=== PATIENT | female | born 1945 | race Caucasian/White ===

== ENCOUNTER → 2017-10-22 11:44 | Outpatient (CLI) | payer MEDICARE, OTHER, SELFPAY ==
[2017-10-22 14:45] LABS: AST(SGOT) 17 U/L (15-37); Alanine Aminotransfer ALT/SGPT 30 U/L (13-56); Alkaline Phosphatase 68 U/L (45-117); Cholesterol 176 mg/dL (200); Globulin 3.3 g/dL (2.2-4.2); High Density Lipoprotein 84 mg/dL; Protein, Total 7.3 g/dL (6.4-8.2); Triglycerides 61 mg/dL; Very Low Density Lipoprotein 12 mg/dL (5-40)
== END ==
PROVIDERS: Family Provider Family Medicine; PCP Family Medicine; Visit Provider Internal Medicine Cardiovascular Disease
DX: E78.5 Hyperlipidemia, unspecified (principal); Z79.899 Other long term (current) drug therapy
CPT/HCPCS: 36415; 80061; 80076

== ENCOUNTER → 2017-11-26 20:16 | Outpatient (CLI) | payer MEDICARE, OTHER, SELFPAY | PROVIDERS: Family Provider Family Medicine; PCP Family Medicine; Visit Provider Family Medicine | DX: R30.0 Dysuria (principal) | CPT/HCPCS: 87086; 87088 ==

== ENCOUNTER → 2018-02-21 12:55 | Outpatient (CLI) | payer MEDICARE, OTHER, SELFPAY | PROVIDERS: Family Provider Family Medicine; PCP Family Medicine; Visit Provider Family Medicine | DX: R39.9 Unspecified symptoms and signs involving the genitourinary system (principal) | CPT/HCPCS: 87077; 87086; 87088; 87186 ==

== ENCOUNTER → 2018-03-08 11:17 | Outpatient (CLI) | payer MEDICARE, OTHER, SELFPAY ==
--- NOTE | 2018-03-08 11:30 | RAD_ITS ---
STUDY: X-RAY - RIGHT ANKLE REASON FOR EXAM: Female, 72 years old. Sprain. Pain and swelling TECHNIQUE: 3 view(s) of the ankle. COMPARISON: None. FINDINGS: Normal visualized distal tibia and fibula. Normal medial and lateral malleoli. Normal tibiotalar articulation and ankle mortise. Normal visualized talus and calcaneus. The visualized subtalar, talonavicular, calcaneocuboid and tarsal articulations are normal. There is no demonstrated fracture. The soft tissue structures are unremarkable. RAD/Ankle min 3 Views IMPRESSION: Normal x-ray examination of the ankle. Electronically Signed: Tobi Velázquez MD at 11:05 EDT , Service support ,
== END ==
PROVIDERS: Family Provider Family Medicine; PCP Family Medicine; Visit Provider Family Medicine
DX: S93.409A Sprain of unspecified ligament of unspecified ankle, initial encounter (principal)
CPT/HCPCS: 73610

== ENCOUNTER → 2018-03-28 11:05 | Outpatient (CLI) | payer MEDICARE, OTHER, SELFPAY | LOC: MFPLAB 11:06 → LABSPEC 11:06 | PROVIDERS: Family Provider Family Medicine; PCP Family Medicine; Visit Provider Family Medicine | DX: R39.9 Unspecified symptoms and signs involving the genitourinary system (principal) | CPT/HCPCS: 87086; 87088 ==

== ENCOUNTER → 2018-04-12 10:39 | Outpatient (CLI) | payer MEDICARE, OTHER, SELFPAY ==
--- NOTE | 2018-04-12 10:44 | BI_ITS ---
MAMMOGRAPHY - BILATERAL SCREENING REASON FOR EXAM: Female, 72 years old. Routine annual screening examination. PERTINENT HISTORY: Aunt with breast cancer. TECHNIQUE: Digital bilateral breast renetta (3D mammographic acquisition) in the CC and MLO projections. 2-D mediolateral oblique (MLO) and craniocaudad (CC) views of both breasts were obtained. CAD: Full Field Digital Mammography with Computer Added Detection was performed. COMPARISON: Comparison is made with prior study dated January 31, 2017 and August 17, 2015. FINDINGS: Breast Composition: The breasts are heterogeneously dense, which may obscure small masses. There are no dominant masses or suspicious calcifications. No other significant abnormalities are identified. There has been no significant change since the prior study. BI/SCREENING MAMM (CAD), BILAT IMPRESSION: Stable bilateral screening mammogram. Yearly follow-up mammogram recommended. (A) ASSESSMENT CATEGORY: BIRADS Category 2: Benign. A letter regarding these results will be sent to the patient by the facility within 30 days. Approximately 10% of breast cancers are not detected by mammography. A normal mammogram should not delay biopsy of a clinically suspicious abnormality. [id number] Electronically Signed: Klever Law MD at 13:11 EDT Tel [phone], Service support ,
== END ==
PROVIDERS: Family Provider Family Medicine; PCP Family Medicine; Visit Provider Family Medicine
DX: Z00.00 Encounter for general adult medical examination without abnormal findings (principal); Z12.31 Encounter for screening mammogram for malignant neoplasm of breast
CPT/HCPCS: 77063; 77067

== ENCOUNTER → 2018-05-16 11:10 | Outpatient (CLI) | payer MEDICARE, OTHER, SELFPAY ==
[2018-05-16 12:44] LABS: AST(SGOT) 19 U/L (15-37); Alanine Aminotransfer ALT/SGPT 25 U/L (13-56); Albumin, Serum 3.8 g/dL (3.2-5.0); Alkaline Phosphatase 70 U/L (45-117); Bilirubin, Direct 0.15 mg/dL (0.00-0.30); Cholesterol 157 mg/dL (200); Globulin 3.3 g/dL (2.2-4.2); High Density Lipoprotein 74 mg/dL; Protein, Total 7.1 g/dL (6.4-8.2); Triglycerides 85 mg/dL; Very Low Density Lipoprotein 17 mg/dL (5-40)
== END ==
PROVIDERS: Family Provider Family Medicine; PCP Family Medicine; Visit Provider Internal Medicine Cardiovascular Disease
DX: E78.5 Hyperlipidemia, unspecified (principal); Z79.899 Other long term (current) drug therapy
CPT/HCPCS: 36415; 80061; 80076

== ENCOUNTER → 2018-07-10 11:25 | Outpatient (CLI) | payer MEDICARE, OTHER, SELFPAY ==
[2018-07-10 13:03] LABS: Anion Gap 7 (5-15); BUN 11 mg/dL (7-18); BUN/Creat Ratio 14.1 RATIO (10-20); Calcium,Total 8.7 mg/dL (8.5-10.1); Chloride 93 mmol/L (98-107); Creatinine, Serum 0.78 mg/dL (0.55-1.02); EST Glomerular Filtration Rate 77 mL/min (>60); Est Glom Filt Rate - Afr Amer 94 mL/min (>60); Glucose 93 mg/dL (74-106); Potassium 4.3 mmol/L (3.5-5.1); Sodium Level 128 mmol/L (136-145)
== END ==
PROVIDERS: Family Provider Family Medicine; PCP Family Medicine; Visit Provider Family Medicine
DX: I10 Essential (primary) hypertension (principal)
CPT/HCPCS: 36415; 80048

== ENCOUNTER → 2018-09-03 11:14 | Outpatient (CLI) | payer MEDICARE, OTHER, SELFPAY ==
[2018-08-19 11:14] VITALS: BMI 19.7
[2018-09-03 13:00] LABS: Anion Gap 7 (5-15); BUN 10 mg/dL (7-18); BUN/Creat Ratio 14.5 RATIO (10-20); Calcium,Total 8.9 mg/dL (8.5-10.1); Chloride 93 mmol/L (98-107); Creatinine, Serum 0.69 mg/dL (0.55-1.02); EST Glomerular Filtration Rate 89 mL/min (>60); Est Glom Filt Rate - Afr Amer 107 mL/min (>60); Glucose 98 mg/dL (74-106); Potassium 4.2 mmol/L (3.5-5.1); Sodium Level 130 mmol/L (136-145)
--- OUTSIDE RECORDS SUMMARY | 2018-10-20 12:14 | XMS RPT_ITS ---
:1945 Author Organization OHIP Support Name Relationship Address Phone R Unavailable Unavailable Unavailable IGOR DOMINGUEZ Unavailable [address] + [place] [address] R Unavailable Unavailable Unavailable IGOR DOMINGUEZ Unavailable [address] + [place] [address] R Unavailable Unavailable Unavailable IGOR DOMINGUEZ Unavailable [address] + [place] [address] R Unavailable Unavailable Unavailable IGOR DOMINGUEZ Unavailable [address] + [place] [address] R Unavailable Unavailable Unavailable IGOR DOMINGUEZ Unavailable [address] + [place] [address] R Unavailable Unavailable Unavailable IGOR DOMINGUEZ Unavailable [address] + [place] [address] R Unavailable Unavailable Unavailable IGOR DOMINGUEZ Unavailable [address] + [place] [address] R Unavailable Unavailable Unavailable IGOR DOMINGUEZ Unavailable [address] + [place] [address] R Unavailable Unavailable Unavailable IGOR DOMINGUEZ Unavailable [address] + [place] [address] R Unavailable Unavailable Unavailable IGOR DOMINGUEZ Unavailable [address] + [place] [address] IGOR DOMINGUEZ Unavailable [address] + [place] [address] ALEXY DOMINGUEZ Unavailable Unavailable Unavailable R Unavailable Unavailable Unavailable IGOR DOMINGUEZ Unavailable [address] + [place] [address] R Unavailable Unavailable Unavailable IGOR DOMINGUEZ Unavailable [address] + [place] [address] R Unavailable Unavailable Unavailable ALBERTO IGOR Unavailable [address] + [place] [address] R Unavailable Unavailable Unavailable IGOR DOMINGUEZ Unavailable [address] + [place] [address] Care Team Providers Name Role Phone ANGELA LIZ Referring Unavailable GUZMAN, MALCOLM De La Vega Primary Care Unavailable HARVEY GILES Attending Unavailable Guzman, Malcolm Attending Unavailable Guzman, Malcolm Primary Care Unavailable Guzman, Malcolm Primary Care Unavailable Ashelfah, Ghasem Admitting Unavailable Ashelfah, Ghasem Attending Unavailable Moodispaw, Malcolm Consulting Unavailable Ashelfah, Ghasem Admitting Unavailable Ashelfah, Ghasem Attending Unavailable Guzman, Malcolm Primary Care Unavailable Ashelfah, Ghasem Consulting Unavailable Moodispaw, Malcolm Attending Unavailable Moodispaw, Malcolm Referring Unavailable Guzman, Malcolm Primary Care Unavailable JanetRubi Attending Unavailable Moodispaw, Malcolm Attending Unavailable Guzman, Malcolm Referring Unavailable Guzman, Malcolm Primary Care Unavailable Guzman, Malcolm Attending Unavailable Guzman, Malcolm Referring Unavailable Guzman, Malcolm Primary Care Unavailable Guzman, Malcolm Attending Unavailable Guzman, Malcolm Referring Unavailable Guzman, Malcolm Primary Care Unavailable Guzman, Malcolm Attending Unavailable Guzman, Malcolm Primary Care Unavailable Guzman, Malcolm Referring Unavailable Guzman, Malcolm Attending Unavailable Guzman, Malcolm Primary Care Unavailable Guzman, Malcolm Attending Unavailable Guzman, Malcolm Primary Care Unavailable Moodispaw, Malcolm Attending Unavailable Moodispaw, Malcolm Referring Unavailable Guzman, Malcolm Primary Care Unavailable Gumzan, Malcolm Attending Unavailable Guzman, Malcolm Primary Care Unavailable Moodispaw, Malcolm Attending Unavailable Guzman, Malcolm Referring Unavailable PROBLEMS PROBLEMS DATE TYPE CONDITION / CODE ATTENDING STATUS SOURCE 05/16/2018 Unknown E78.5 - Malcolm Hughes Active [place] Hyperlipidemia, Community unspecified / Hospital E78.5(ICD-10) Repository 05/16/2018 Unknown Z79.899 - Other 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, 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 therapy / Hospital Z79.899(ICD-10) Repository 03/28/2018 Unknown R39.9 - Unspecified Guzman, Malcolm Active [place] symptoms and signs Community involving the Hospital genitourinary Repository system / R39.9(ICD-10) 03/08/2018 Unknown S93.409A - Sprain Malcolm Guzman Active [facility] unspecified [facility] unspecified ankle, Repository initial encounter / S93.409A(ICD-10) 02/14/2018 Admitting Disease of jaws, CHAN, HARVEY W Active [facility] diagnosis unspecified / University M27.9(ICD-10) [facility] Repository 11/27/2017 Unknown R30.0 - Dysuria / Malcolm Guzman Active [place] R30.0(ICD-10) [facility] Repository PROCEDURES PROCEDURES No Procedure Records FoundRESULTS RESULTS TROPONIN-I Collected: 10/15/2018 Status: F Source: [place] 10:35 PM [facility] REPOSITORY Order Comment: 'TROP' Serial specimen #1, #2 or #3: 3 TYPE CODE TESTS RESULT OUT OF RANGE REFERENCE UNITS LAB L501.4010 <0.045 ng/mL Normal < 0.015 TROPONIN-I Result Comment: TROPONIN-I EXPECTED VALUES <0.045 Negative 0.045 - 0.590 Consistent with Cardiac Damage > OR = 0.600 Critical Value Not every elevated troponin is indicative of [place]. These values should be used with clinical judgement in examining the patient's clinical picture for diagnosis. To establish a diagnosis of [place] versus myocardial injury, there must be a demonstrated rise and/or fall in the troponin values, in addition to ischemic symptoms, EKG changes, new regional wall motion abnormality, and/or angiographical evidence. PLEASE NOTE: REFERENCE RANGES EDITED 18 Performed By: #### L501.4010 #### [facility] [address] [place], [address] HISTORY AND PHYSICAL Observed: 10/15/2018 Status: F Source: [place] EXAM 7:15 PM [facility] REPOSITORY [facility] Medical Records Department [address] [facility] [place] [address] History and Physical 10/15/18 1903 MR#: [id number] Acct: [id number] Name: ALEXY DOMINGUEZ Rep #: [id number] : 1945 72 From: Nayla Ahuja MD PCP: Malcolm Guzman MD Status: ADM MELVINA Y Location: [place] [address] Problem List (1) History of pericardiectomy Status: Chronic Comment: 03/09/[address] Chris Morse for recurrent pericardial effusion (2) COPD (chronic obstructive pulmonary disease) Status: Chronic (3) Hyperlipidemia Status: Chronic Qualifiers: (4) History of non-ST elevation myocardial infarction (NSTEMI) Status: Chronic (5) Takotsubo cardiomyopathy Status: Chronic (6) Atherosclerotic heart disease of [place] coronary artery without angina pectoris Status: Chronic Qualifiers: Comment: Nonobstructive CAD per cath 12/11/[address] Narvaez [facility] (7) Asthma Status: Chronic (8) Benign essential HTN Status: Chronic History of Present Illness Date of Admission: 10/15/18 Chief Complaint: Chest pain. The patient is a 72 year old F with past medical history as mentioned above presented to the emergency room because of not feeling well, headache and chest pain. Today around 2 PM, she started feeling not well, felt hot and flushed on her face, associated with headache and shortly after, she started having retrosternal chest pain, described as chest tightness, radiates to both sides of her neck and both sides of her jaw, associated with mild shortness of breath and dizziness and without aggravating or relieving factors. At that time, she took her blood pressure and it was 220 systolic. According to the patient, EMS found that her blood pressure was 220/112. At this time, her pain improved after she received nitroglycerin. In the emergency department, her vital signs were stable. Her blood pressure was 143/87, afebrile, heart rate is stable. Her routine blood work was remarkable for sodium of 129 which is chronic, otherwise normal. EKG revealed normal sinus rhythm, normal QRS, normal QTC, no acute ischemic changes. Troponin is negative. Chest x-ray showed no acute findings. She is being admitted for atypical chest pain for evaluation and hypertensive urgency. Past Medical History Past Medical History (Chronic Problems): Chronic Problems (Last Reviewed 08/19/18 @ 11:08 by Barbie Sultana) 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 Chris Morse for recurrent pericardial effusion COPD (chronic obstructive pulmonary disease) (Chronic) Hyperlipidemia (Chronic) History of non-ST elevation myocardial infarction (NSTEMI) (Chronic) Takotsubo cardiomyopathy (Chronic) History of left heart catheterization (Chronic) 12/05/2006 @ [facility] per Dr. Hughes; 12/11/[address] Narvaez@ [facility] Atherosclerotic heart disease of [place] coronary artery without angina pectoris (Chronic) Nonobstructive CAD per cath 12/11/[address] Narvaez [facility] Asthma (Chronic) Benign essential HTN (Chronic) Osteoporosis (Chronic) History of coronary vasospasm (Chronic) Tongue cancer (Chronic) 1998 Medical History: Medical History (Last Reviewed 08/19/18 @ 11:08 by Barbie Sultana) COPD (chronic obstructive pulmonary disease) (Chronic) J44.9 Hyperlipidemia (Chronic) E78.5 History of non-ST elevation myocardial infarction (NSTEMI) (Chronic) I25.2 Takotsubo cardiomyopathy (Chronic) I51.81 Atherosclerotic heart disease of [place] coronary artery without angina pectoris (Chronic) I25.10 Nonobstructive CAD per cath 12/11/[address] Narvaez [facility] Asthma (Chronic) J45.909 Benign essential HTN (Chronic) I10 History of coronary vasospasm (Chronic) Z86.79 Allergies codeine Adverse Reaction (Verified 10/15/18 16:00) HEART RACES indomethacin [From Indocin] Adverse Reaction (Verified 10/15/18 16:00) Abd cramps/diarrhea indomethacin sodium [From Indocin] Adverse Reaction (Verified 10/15/18 16:00) Abd cramps/diarrhea levofloxacin [From Levaquin] Adverse Reaction (Verified 10/15/18 16:00) INCREASED BLOOD PRESSURE nitrofurantoin [From Macrobid] Adverse Reaction (Verified 10/15/18 16:00) Nausea/Vom/Diarrhea propoxyphene napsylate [From Darvocet-N 100] Adverse Reaction (Verified 10/15/18 16:00) PASSES OUT Home Medications: Ambulatory Orders Medication Instructions Recorded Amlodipine [Norvasc] 5 mg PO DAILY 12/08/14 Surgical History: Surgical History (Last Reviewed 08/19/18 @ 11:08 by Barbie Sultana) History of pericardiectomy (Chronic) Z98.890 03/09/[address] Chris Morse for recurrent pericardial effusion History of left heart catheterization (Chronic) Z98.890 12/05/2006 @ [facility] per Dr. Hughes; 12/11/[address] Narvaez@ [facility] History of cataract surgery Z98.49 Rt Surgical History: - - Pericardial window, partial tongue resection 1998 for tongue carcinoma, hysterectomy 1991, right neck region lymph node resection 1998, thoracic disc surgery 2012, appendectomy. Psychiatric History: No pertinent psych hx [employer] History: No pertinent [employer] history Lives: Spouse/ Significant Other Smoking Status: Never smoker Alcohol: None Drugs: None - *Family History Maternal Family History: Family History (Last Reviewed 08/19/18 @ 11:08 by Barbie Sultana) Father Myocardial infarction, Onset Age: 35 History Items: Cancer - age 84 Paternal Family History: Family History (Last Reviewed 08/19/18 @ 11:08 by Barbie Sultana) Father Myocardial infarction, Onset Age: 35 History Items: Heart Disease - age 93, Hypertension Offspring Family History: Family History (Last Reviewed 08/19/18 @ 11:08 by Barbie Sultana) Father Myocardial infarction, Onset Age: 35 History Items: - - 4 children and 4 grandchildren in good health Review of Systems Constitutional: Denies: Anorexia, Chills, Fever, Weakness Eyes: Denies: Blurred vision, Double vision, Drainage, Vision Change HEENT: Denies: Difficulty Hearing, Ear Pain, Eye Pain, Nasal Congestion, Sore Throat Cardiovascular: Reports: Chest Pain, Chest Tightness, Light Headedness. Denies: Heaviness, Orthopnea, Paroxysmal Noc. Dyspnea, Syncope Respiratory: Reports: Shortness of Breath. Denies: Cough, Hemoptysis, Pleuritic Pain, Sputum production, Wheezing Gastrointestinal: Reports: Nausea. Denies: Abdominal Pain, Constipation, Diarrhea, Vomiting Genitourinary: Denies: Dysuria, Frequency, Hematuria Musculoskeletal: Denies: Arm Pain, Back Pain, Foot Pain Skin: Denies: Dryness, Rash Neurological: Reports: Headaches. Denies: Balance problems, Double vision, Change in Speech, Slurred speech, Confusion, Incoordination, Numbness Psychiatric: Denies: Anxiety, Depression Endocrine: Denies: Change in Body Habitus, Polydipsia VTE Information - Inpt Only VTE Present on Admission: No VTE Mechan Device Prophylaxis: None VTE Pharm Prophylaxis ordered?: Yes - Physical Exam General: Oriented x3, Cooperative, No apparent distress HEENT: Atraumatic, PERRLA, EOMI, Normocephalic Oral: Moist Mucosa, No Gingival or Mucosal Lesions/ Ulcerations Neck: Supple, No JVD, Negative Carotid Bruits, Trachea Midline, Thyroid Normal Size and Texture Lungs: Clear to auscultation, No rhonchi, No wheeze, No rales, Diminished Cardiovascular: Regular rate, Regular Rhythm, Normal S1, Normal S2, PMI Normal Abdomen: Bowel Sounds Present, Soft, Non Tender, Non-Distended, No Hepato-splenomegaly Extremities: No clubbing, No cyanosis, No edema Skin: No rashes, No breakdown Lymphatic: No Cervical, Supraclavicular, or Inguinal Adenopathy Neurological: Cranial nerves II-XII grossly intact, Motor Exam 5/5 strength throughout Psych/Mental Status: Normal Affect, Appropriate, Alert and oriented to time, place, person, mood and affect Vital Signs Temp Pulse Resp BP Pulse Ox 98.1 F 81 15 145/76 H 97 10/15/18 15:52 10/15/18 18:39 10/15/18 18:00 10/15/18 18:00 10/15/18 18:00 Oxygen Delivery Method Room Air Weight: 115 lb 1.301 oz Body Mass Index (BMI) 19.4 Laboratory Tests Past 24 Hrs WBC 5.8 RBC 3.90 L Hgb 12.4 Hct 36.7 L MCV 94.1 MCH 31.8 MCHC 33.8 RDW 14.2 RDW Differential 47.2 H Clinical Impression(s) from Imaging Studies Chest X-Ray 10/15/18 16:25 IMPRESSION: Mild cardiomegaly with hyperexpansion. No new or acute finding. Electronically Signed: Quan Lowe MD at 16:40 EST , Service support , Assessment/Plan This is a 72 years old female patient presented to the ED because of chest pain and elevated blood pressure and she is being admitted for evaluation and treatment. #1 atypical chest pain: Could be due to highly elevated blood pressure. EKG revealed no acute ischemic changes. Troponin is negative. Chest x-ray showed no acute findings. At this time, chest pain almost gone after blood pressure improved. At this time, blood pressure and other vital signs are stable. Plan: Admit to PCU for observation, cardiac monitoring, serial cardiac enzymes, control blood pressure, repeat EKG tomorrow morning, cardiology consult, Tylenol as needed, Zofran as needed, PT OT evaluation and treatment. #2 hypertensive urgency: Reportedly, blood pressure was 220/112 by EMS. Patient received nitroglycerin by EMS, pressure now is down to 140 systolic. Reportedly, patient has been having episodes of sudden onset elevation of blood pressure with tachycardia and she underwent workup for secondary hypertension and specifically pheochromocytoma by endocrinology as outpatient according to Dr. Hughes. She has been having those issues with sudden increase of her blood pressure and heart rate for many years. Patient states that she takes her medications every day as prescribed. At this time, blood pressure stable. Plan: Monitor blood pressure, continue Norvasc, metoprolol, IV Z PRN. #3 hypertension: Plan as above, blood pressure elevated but improved now. Plan as above. #4 history of Takotsubo cardiomyopathy: Stable, compensated, no evidence of acute CHF. #5 COPD: Clinically stable, pulse ox is maintained on room air. Plan for albuterol as needed. #6 CAD: Plan as above, continue metoprolol, Evista and statins. #7 history of pericardial effusion/status post pericardial window: Stable, no acute issues. 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 #9 chronic hyponatremia: Unclear etiology, it has been chronic. Sodium level is at her baseline. #10 DVT prophylaxis: Subcu Lovenox. This note was generated with [employer] dictation software. It may contain incorrect words, spelling, and punctuation that were not noted in checking the note before signing. Code Visit OBSV E AND M: 10726 Initial observation care L3 10/15/181914 <Electronically signed by Nayla Ahuja MD> Date Nayla Ahuja MD Cosigner Signature: Date (if applicable) CC: Nayla Ahuja; Malcolm Guzman MD Signed TROPONIN-I Collected: 10/15/2018 Status: F Source: [place] 7:15 PM [facility] REPOSITORY Order Comment: 'TROP' Serial specimen #1, #2 or #3: 2 TYPE CODE TESTS RESULT OUT OF RANGE REFERENCE UNITS LAB L501.4010 <0.045 ng/mL Normal < 0.015 TROPONIN-I Result Comment: TROPONIN-I EXPECTED VALUES <0.045 Negative 0.045 - 0.590 Consistent with Cardiac Damage > OR = 0.600 Critical Value Not every elevated troponin is indicative of [place]. These values should be used with clinical judgement in examining the patient's clinical picture for diagnosis. To establish a diagnosis of [place] versus myocardial injury, there must be a demonstrated rise and/or fall in the troponin values, in addition to ischemic symptoms, EKG changes, new regional wall motion abnormality, and/or angiographical evidence. PLEASE NOTE: REFERENCE RANGES EDITED 18 Performed By: #### L501.4010 #### [facility] [address], [address] CHEST 1 VIEW Observed: 10/15/2018 Status: F Source: [place] (PORTABLE) 4:22 PM [facility] REPOSITORY [facility] Imaging Services [address] [place] [address] Chest 1 View (Portable) MR#: [id number] Acct: [id number] Name: ALEXY DOMINGUEZ Rep #: [id number] : 1945 F 72 From: Quan Lowe MD PCP: Malcolm Guzman MD Status: PRE ER Study: Chest 1 View (Portable) Date of Exam: 10/15/18 Exam# [id number] Ordering Dr: Susy Tinoco MD STUDY: X-RAY CHEST REASON FOR EXAM: Female, 72 years old. Chest pain radiating to shoulders and jaw. TECHNIQUE: Single frontal view of the chest. COMPARISON: May 30, 2017 FINDINGS: There is stable hyperexpansion. There is no demonstrated pleural abnormality. There is stable mild cardiomegaly. Normal mediastinum and елена. Normal visualized pulmonary arteries. There is atherosclerotic calcification of the aortic arch with tortuosity. There is a kyphoplasty of the mid thoracic region unchanged. Normal visualized ribs, clavicles, and shoulders. There is no demonstrated abnormality of the visualized soft tissue structures of the upper abdomen. RAD/Chest 1 View (Portable) IMPRESSION: Mild cardiomegaly with hyperexpansion. No new or acute finding. Electronically Signed: Quan Lowe MD at 16:40 EST , Service support , CC: Susy Tinoco MD; Malcolm Guzman MD Sole Trimmer: Signed BASIC METABOLIC Collected: 10/15/2018 Status: F Source: [place] (BMP) 4:00 PM [facility] REPOSITORY TYPE CODE TESTS RESULT OUT OF RANGE REFERENCE UNITS LAB L501.0100 74-106 mg/dL High GLU 120 Result Comment: Fasting Glucose result from 100 to 125 mg/dL suggests IMPAIRED HOMEOSTASIS per A.D.A. criteria. Please note revised GLUCOSE reference range effective 2017. LAB L501.1000 7-18 mg/dL Normal BUN 11 LAB L501.1100 0.55-1.02 mg/dL Normal CREAT,SERUM 0.75 Result Comment: The validity of the calculated GFR AND GFRAA in patients over 70 years has not been determined. Clinical correlation is essential. LAB L501.1110 >60 mL/min Normal EST GFR 81 Result Comment: Non- GFR Calc LAB L501.1115 >60 mL/min Normal EST GFR - AA 97 Result Comment: GFR Calc LAB L501.1255 ml/min Normal Estimated CRCL 42.49 LAB L501.1300 10-20 RATIO Normal BUN/CRE 14.6 LAB L501.2200 8.5-10 mg/dL Normal .1 CA 8.8 LAB L501.5300 136-14 mmol/L Low 5 NA 129 LAB L501.5600 3.5-5. mmol/L Normal 1 K 5.0 Result Comment: Moderate Hemolysis, Result may be falsely increased. LAB L501.5900 98-107 mmol/L Low CL 93 LAB L501.6100 21.0-32.0 mmol/L Normal CO2 28.0 LAB L501.6200 5-15 Normal GAP 8 Performed By: #### L500.2500, L501.4010 #### [facility] [address] [place], [place], [address] TROPONIN-I Collected: 10/15/2018 Status: F Source: [place] 4:00 PM [facility] TYPE CODE TESTS RESULT OUT OF RANGE REFERENCE UNITS LAB L501.4010 <0.045 ng/mL Normal < 0.015 TROPONIN-I Result Comment: TROPONIN-I EXPECTED VALUES <0.045 Negative 0.045 - 0.590 Consistent with Cardiac Damage > OR = 0.600 Critical Value Not every elevated troponin is indicative of [place]. These values should be used with clinical judgement in examining the patient's clinical picture for diagnosis. To establish a diagnosis of [place] versus myocardial injury, there must be a demonstrated rise and/or fall in the troponin values, in addition to ischemic symptoms, EKG changes, new regional wall motion abnormality, and/or angiographical evidence. PLEASE NOTE: REFERENCE RANGES EDITED 18 Performed By: #### L500.2500, L501.4010 #### [facility] [address] [facility] [facility] [place], [address] CBC W/DIFF, AUTOMATED Collected: 10/15/2018 Status: F Source: [place] 4:00 PM [facility] TYPE CODE TESTS RESULT OUT OF RANGE REFERENCE UNITS LAB L100.1000 4.4-11.0 K/mm3 Normal WBC 5.8 LAB L100.1200 4.2-5.4 M/mm3 Low RBC 3.90 LAB L100.1300 12.0-15.0 g/dl Normal HGB 12.4 LAB L100.1400 37-47 % Low HCT 36.7 LAB L100.1500 81-99 fL Normal MCV 94.1 LAB L100.1600 27.0-32.0 pg Normal MCH 31.8 LAB L100.1700 32-36 g/gl Normal MCHC 33.8 LAB L100.1810 11.6-14.6 % Normal RDW CV 14.2 LAB L100.1820 35.1-43.9 fl High RDW SD 47.2 LAB L100.1900 150-450 K/mm3 Normal PLT 346 LAB L100.2000 6.2-12.0 fl Normal MPV 8.9 LAB L100.2100 47-70 % Normal NEUT% 63.0 LAB L100.2200 19-41 % Normal LY% 27.5 LAB L100.2300 0-10 % Normal MONO% 9.0 LAB L100.2400 0-5 % Normal EO% 0.3 LAB L100.2500 0-1 % Normal BASO% 0.2 LAB L100.2550 0.0-0.9 % Normal IM GRAN % 0.000 Result Comment: IG% - Immature Granulocytes (promyelocytes, myelocytes and metamyelocytes) > 1% indicates that a LEFT SHIFT is Present. LAB L100.2620 2.0-7.7 X10 3/uL Normal Absolute Neut 3.6 LAB L100.2720 0.83-4.51 X10 3/ul Normal Absolute Lymph 1.58 Performed By: #### L100.0100 #### [facility] [address] [place], [address] BASIC METABOLIC Collected: 09/03/2018 Status: F Source: [place] PROFILE ([facility]) 11:15 AM [facility] TYPE CODE TESTS RESULT OUT OF RANGE REFERENCE UNITS LAB L501.0100 74-106 mg/dL Normal GLU 98 Result Comment: Please note revised GLUCOSE reference range effective 2017. LAB L501.1000 7-18 mg/dL Normal BUN 10 LAB L501.1100 0.55-1.02 mg/dL Normal CREAT,SERUM 0.69 Result Comment: The validity of the calculated GFR AND GFRAA in patients over 70 years has not been determined. Clinical correlation is essential. LAB L501.1110 >60 mL/min Normal EST GFR 89 Result Comment: Non- GFR Calc LAB L501.1115 >60 mL/min Normal EST GFR - AA 107 Result Comment: GFR Calc LAB L501.1300 10-20 RATIO Normal BUN/CRE 14.5 LAB L501.2200 8.5-10.1 mg/dL CA Normal 8.9 LAB L501.5300 136-145 mmol/L Low NA 130 LAB L501.5600 3.5-5.1 mmol/L K Normal 4.2 LAB L501.5900 98-107 mmol/L Low CL 93 LAB L501.6100 21.0-32.0 mmol/L Normal CO2 30.0 LAB L501.6200 5-15 Normal GAP 7 Performed By: #### L500.2500 #### [facility] [address] [place], [address] CARDIOLOGY VISIT Observed: 08/19/2018 Status: F Source: [place] REPORT 12:27 PM [facility] [address] [place] [address] OFFICE VISIT Date of Service: 08/19/18 MR#: [id number] Acct: [id number] Name: ALEXY DOMINGUEZ Rep #: [id number] : 1945 Provider: Malcolm Hughes MD Age/Sex: 72/F Location: [facility] Status: Signed HPI HPI Details: ALEXY DOMINGUEZ, is a 72 F who presents to the office today for outpatient cardiovascular follow-up. Overall she states she is doing well at this time. She notes earlier this year she had minor episodes that she has had in the past with respect to changes in her heart rate, blood pressure, as well as feeling somewhat warm and/or flushed. She also had an episode where she felt somewhat dizzy going down one step but did not lose consciousness. However she states she missed stepped and sprained her ankle. She was evaluated for that by other physicians. She has denied any other concerning chest discomfort or difficulty breathing. She has had no other episodes with respect to near syncope or syncope. She has not required any additional cardiovascular diagnostic studies. She continues to take her medications. Intake Vital Signs08/19/18 Body Mass Index (BMI) 19.7 08/19/18 Blood Pressure 140/72 08/19/18 Height 5 ft 5 in 08/19/18 Weight: 118 lb 08/19/18 Body Mass Index (BMI) 19.6 08/19/18 Blood Pressure 146/80 H Intake Visit Reasons: 9 M FU Allergies codeine Adverse Reaction (Verified 08/19/18 11:04) HEART RACES indomethacin [From Indocin] Adverse Reaction (Verified 08/19/18 11:04) Abd cramps/diarrhea indomethacin sodium [From Indocin] Adverse Reaction (Verified 08/19/18 11:04) Abd cramps/diarrhea levofloxacin [From Levaquin] Adverse Reaction (Verified 08/19/18 11:04) INCREASED BLOOD PRESSURE nitrofurantoin [From Macrobid] Adverse Reaction (Verified 08/19/18 11:04) Nausea/Vom/Diarrhea propoxyphene napsylate [From Darvocet-N 100] Adverse Reaction (Verified 08/19/18 11:04) PASSES OUT Medications Amlodipine [Norvasc] 5 mg PO DAILY 12/08/14 [History Confirmed 08/19/18] Calcium Carb/Vitamin D3/Vit K1 [Citracal Soft Chew] 1 ea PO QHS 12/08/14 [History Confirmed 08/19/18] Lorazepam [Ativan] 0.5 mg PO BID PRN PRN 12/08/14 [History Confirmed 08/19/18] Pravastatin [Pravachol] 80 mg PO QHS 12/08/14 [History Confirmed 08/19/18] Raloxifene HCl [Evista] 60 mg PO QHS 12/10/15 [History Confirmed 08/19/18] Albuterol Inhaler [Ventolin Hfa] 1 - 2 puff INHALATION Q6H PRN PRN #1 inhaler 05/30/17 [Rx Confirmed 08/19/18] nitroglycerin 0.4 mg sublingual tablet 0.4 mg SUBLINGUAL Q5- 15M PRN 10/26/17 [History Confirmed 08/19/18] cranberry fruit concentrate 250 mg chewable tablet 250 mg PO BID tab 10/29/17 [History Confirmed 08/19/18] levocetirizine 5 mg tablet 5 mg PO QDAY tab 10/29/17 [History Confirmed 08/19/18] ranitidine 150 mg tablet 150 mg PO BID tab 10/29/17 [History Confirmed 08/19/18] sucralfate 1 gram tablet 1 g PO TID tab 10/29/17 [History Confirmed 08/19/18] metoprolol succinate ER 50 mg tablet,extended release 24 hr 50 mg PO DAILY #90 tab 05/20/18 [Rx Confirmed 08/19/18] pantoprazole 40 mg tablet,delayed release 40 mg PO QDAY #90 tab 07/08/18 [Rx Confirmed 08/19/18] PENDING SALE TO [facility] Medical History COPD (chronic obstructive pulmonary disease) (Chronic) Hyperlipidemia (Chronic) History of non-ST elevation myocardial infarction (NSTEMI) (Chronic) Takotsubo cardiomyopathy (Chronic) Atherosclerotic heart disease of [place] coronary artery without angina pectoris (Chronic) Asthma (Chronic) Benign essential HTN (Chronic) History of coronary vasospasm (Chronic) Surgical History History of pericardiectomy (Chronic) History of left heart catheterization (Chronic) History of cataract surgery (Resolved) Family History Father , age 92, had [place] age 35 Myocardial infarction, Onset Age: 35 Social History Smoking Status: Never smoker ROS Const Const: Negative for fatigue, weakness, weight gain, weight loss, frequent falls or excessive sweating Eyes Eyes: Negative for change in vision, blurry vision or transient loss of vision ENT ENT: Negative for dizziness or balance problems Cardio Chest Pain: No Palpitations: Yes (x2 episodes with elevated BP) feels like its: fast Edema: None Muscle aches with walking: None Resp Respiratory: Positive for SOB with activity (baseline; HX asthma, climbing stairs); negative for SOB at rest GI GI: Negative vomiting or vomiting blood/hematemesis : Negative for hematuria Musc Musc: Negative for balance problems, muscle aches/ myalgia, muscle weakness or joint pain Skin Skin: Negative non-healing lesions or rash Neuro Neuro: Positive for lightheadedness (X 1 episode going down one step became lightheaded, spinning, fell forward) and near syncope; negative for weakness, blurry vision, dizziness, frequent falls or orthostatic symptoms Alejandro Hematologic/Lymphatic: Negative for easy bleeding Endo Endo: Negative for fatigue or excessive sweating Psych Psych: Negative for anxiety or depression Allergy Allergy/Immunology: Negative for hives, Negative for rash Cardiology Exam Const Appearance: cooperative, healthy appearing, comfortable, no acute distress, well developed and well groomed Nutritional Appearance: thin and well nourished Orientation: alert, awake and oriented x3 Head Head: normal to inspection, normocephalic and atraumatic Ears: hearing grossly normal bilaterally Nose: external nose normal Face and Sinus: face symmetric Mouth: oral mucosae normal Teeth and gingiva: dentition normal Eyes General: appearance normal, both eyes and all related structures Eyelids: eyelids normal Conjunctivae: conjunctivae normal Pupils: PERRL EOM: EOM intact bilaterally Neck Neck: normal visual inspection and full ROM Carotids: normal carotid upstroke Chest Chest inspection: normal inspection of the chest and symmetric chest movement Auscultation: Bilateral: Clear to Auscultation Cardio Palpation: normal PMI Rate: regular rate Rhythm: regular rhythm Heart sounds: S1 normal, S2 normal and positive S4 GI GI: normal to inspection, soft, no hepatosplenomegaly and bowel sounds present Neuro General: alert, awake and oriented x3 Skin Skin: no rashes or lesions noted Extremities Pulses: Normal: Right Femoral Pulse, Left Femoral Pulse, Right Radial Pulse, Left Radial Pulse Lower Extremity Edema: None: Bilateral Psych Psychological: normal affect Assessment AND Plan 1. Atherosclerosis of [place] coronary artery of [place] heart without angina pectoris I25.10 Nonobstructive CAD per cath 12/11/[address] Narvaez [facility] Plan At the present time she appears to be doing reasonably well overall with no ongoing classic symptoms of angina pectoris. She will continue her current medical management and outpatient follow-up 2. Takotsubo cardiomyopathy I51.81 Plan Based upon her previous history there is concerns of her original evaluation being compatible with a coronary artery vasospasm and a stress-induced cardiomyopathy/apical ballooning syndrome. She has recovered from such. She continues to be followed. 3. Hyperlipidemia, unspecified hyperlipidemia type E78.5 Plan She does have a history of hyperlipidemia. She has been on medical management. Her lipids have been reviewed. They have been under good control. 4. Benign essential HTN I10 Plan Her blood pressure has waxed and waned over time. However for the most part she is been under reasonably good control on her current medical regimen. It will be continued. Plan Detail Additional Comments She will be scheduled for future outpatient cardiovascular follow-up barring unforeseen concerns in the interim. Thank you for allowing me to participate in the care of your patient. Please don't hesitate to call if any issues arise. This note was generated using a voice recognition system and there may be incorrect words, spelling or punctuation that were not noted when reviewing the office note prior to saving. Follow Up 6 Months (PFM) Coding Level of Care Code Off vis,est,level 3 Diagnoses Atherosclerosis of [place] coronary artery of [place] heart without angina pectoris I25.10 [place] vs. transplanted heart: [place] heart Takotsubo cardiomyopathy I51.81 Hyperlipidemia, unspecified hyperlipidemia type E78.5 Hyperlipidemia type: unspecified Benign essential HTN I10 Coding Level of Care Code Off vis,est,level 3 Diagnoses Atherosclerosis of [place] coronary artery of [place] heart without angina pectoris I25.10 [place] vs. transplanted heart: [place] heart Takotsubo cardiomyopathy I51.81 Hyperlipidemia, unspecified hyperlipidemia type E78.5 Hyperlipidemia type: unspecified Benign essential HTN I10 08/19/18 1227 <Electronically signed by Malcolm Hughes MD> Date Malcolm Hughes MD Cosigner Signature: Date (if applicable) CC: Malcolm Guzman MD BASIC METABOLIC Collected: 07/10/2018 Status: F Source: [place] PROFILE (BMP) 11:26 AM [facility] REPOSITORY TYPE CODE TESTS RESULT OUT OF RANGE REFERENCE UNITS LAB L501.0100 74-106 mg/dL Normal GLU 93 Result Comment: Please note revised GLUCOSE reference range effective 2017. LAB L501.1000 7-18 mg/dL Normal BUN 11 LAB L501.1100 0.55-1.02 mg/dL Normal CREAT,SERUM 0.78 Result Comment: The validity of the calculated GFR AND GFRAA in patients over 70 years has not been determined. Clinical correlation is essential. LAB L501.1110 >60 mL/min Normal EST GFR 77 Result Comment: Non- GFR Calc LAB L501.1115 >60 mL/min Normal EST GFR - AA 94 Result Comment: GFR Calc LAB L501.1300 10-20 RATIO Normal BUN/CRE 14.1 LAB L501.2200 8.5-10.1 mg/dL CA Normal 8.7 LAB L501.5300 136-145 mmol/L Low NA 128 LAB L501.5600 3.5-5.1 mmol/L K Normal 4.3 LAB L501.5900 98-107 mmol/L Low CL 93 LAB L501.6100 21.0-32.0 mmol/L Normal CO2 28.0 LAB L501.6200 5-15 Normal GAP 7 Performed By: #### L500.2500 #### [facility] [address] [place], [place], [id number] LIVER PROFILE Collected: 05/16/2018 Status: F Source: [place] 11:15 AM [facility] REPOSITORY TYPE CODE TESTS RESULT OUT OF RANGE REFERENCE UNITS LAB L501.1500 6.4-8.2 g/dL Normal T PROT 7.1 LAB L501.1800 3.2-5.0 g/dL Normal ALB 3.8 LAB L501.1950 2.2-4.2 g/dL Normal GLOB 3.3 LAB L501.4100 15-37 U/L Normal AST 19 LAB L501.4305 45-117 U/L Normal ALK P 70 LAB L501.4405 13-56 U/L Normal ALT 25 LAB L501.4600 0.20-1.00 mg/dL Normal T BILI 0.60 LAB L501.4700 0.00-0.30 mg/dL Normal D BILI 0.15 Performed By: #### L500.3400, L500.4100 #### [facility] [address] [place], [place], [id number] LIPID PROFILE Collected: 05/16/2018 Status: F Source: [place] 11:15 [facility] REPOSITORY TYPE CODE TESTS RESULT OUT OF RANGE REFERENCE UNITS LAB L501.4900 200 mg/dL Normal CHOL 157 Result Comment: <200 mg/dL Desirable 200-240 mg/dL Borderline >240 mg/dL High Risk LAB L501.5000 mg/dL Normal TRIG 85 Result Comment: The drugs N-Acetylcysteine and Metamizole may falsely depress this assay. Serum Triglycerides Reference Interval Normal <150 mg/dL Borderline high 150 - 199 mg/dL High 200 - 499 mg/dL Very High > or = 500 mg/dL LAB L501.6400 mg/dL Normal HDL 74 Result Comment: The drugs N-Acetylcysteine and Metamizole may falsely depress this assay. Reference Range HDL <40 mg/dL Low HDL Cholesterol HDL >or= 60 mg/dL High HDL Cholesterol LAB L501.6500 0-130 mg/dL Normal LDL 66 LAB L501.6600 5-40 mg/dL Normal VLDL 17 Performed By: #### L500.3400, L500.4100 #### [facility] [address] [facility] [place], [address] SCREENING MAMM (CAD), Observed: 04/12/2018 Status: F Source: [place] BIL 10:44 AM [facility] REPOSITORY [facility] Imaging Services [address] [place] [address] SCREENING MAMM (CAD), BILAT MR#: [id number] Acct: [id number] Name: ALEXY DOMINGUEZ Rep #: [id number] : 1945 F 72 From: Klever Law MD PCP: Malcolm Guzman MD Status: REG CLI Study: SCREENING MAMM (CAD), BILAT Date of Exam: 04/12/18 Exam# [id number] Ordering Dr: Malcolm Guzman MD MAMMOGRAPHY - BILATERAL SCREENING REASON FOR EXAM: Female, 72 years old. Routine annual screening examination. PERTINENT HISTORY: Aunt with breast cancer. TECHNIQUE: Digital bilateral breast renetta (3D mammographic acquisition) in the CC and MLO projections. 2-D mediolateral oblique (MLO) and craniocaudad (CC) views of both breasts were obtained. CAD: Full Field Digital Mammography with Computer Added Detection was performed. COMPARISON: Comparison is made with prior study dated January 31, 2017 and August 17, 2015. FINDINGS: Breast Composition: The breasts are heterogeneously dense, which may obscure small masses. There are no dominant masses or suspicious calcifications. No other significant abnormalities are identified. There has been no significant change since the prior study. BI/SCREENING MAMM (CAD), BILAT IMPRESSION: Stable bilateral screening mammogram. Yearly follow-up mammogram recommended. (A) ASSESSMENT CATEGORY: BIRADS Category 2: Benign. A letter regarding these results will be sent to the patient by the facility within 30 days. Approximately 10% of breast cancers are not detected by mammography. A normal mammogram should not delay biopsy of a clinically suspicious abnormality. [id number] Electronically Signed: Klever Law MD at 13:11 EDT Tel [phone], Service support , CC: Malcolm Guzman MD Sole Trimmer: Signed Observed: 03/28/2018 Status: F Source: [place] CULTURE, URINE 11:07 AM [facility] REPOSITORY Order Date: 03/28/18 Order Info: 630-4 - CUUR Urine Culture ORGANISM 1: Mixed Gram Positive Organisms Dorsey Count 1000-10,000 MIX CULTURE Mixed contaminants. Submit a new specimen if indicated. Performed By: #### M100.0650 #### [facility] [address] [place] [address]. [place], [address] ANKLE MIN 3 VIEWS Observed: 03/08/2018 Status: F Source: [place] 11:22 AM [facility] REPOSITORY [facility] Imaging Services [address] [place] [address] Ankle min 3 Views MR#: [id number] Acct: [id number] Name: ALEXY DOMINGUEZ Rep #: [id number] : 1945 F 72 From: Tobi Velázquez MD PCP: Malcolm Guzman MD Status: REG CLI Study: Ankle min 3 Views Date of Exam: 03/08/18 Exam# [id number] Ordering Dr: Malcolm Guzman MD STUDY: X-RAY - RIGHT ANKLE REASON FOR EXAM: Female, 72 years old. Sprain. Pain and swelling TECHNIQUE: 3 view(s) of the ankle. COMPARISON: None. FINDINGS: Normal visualized distal tibia and fibula. Normal medial and lateral malleoli. Normal tibiotalar articulation and ankle mortise. Normal visualized talus and calcaneus. The visualized subtalar, talonavicular, calcaneocuboid and tarsal articulations are normal. There is no demonstrated fracture. The soft tissue structures are unremarkable. RAD/Ankle min 3 Views IMPRESSION: Normal x-ray examination of the ankle. Electronically Signed: Tobi Velázquez MD at 11:05 EDT , Service support , CC: Malcolm Guzman MD Sole Trimmer: Signed Observed: 02/21/2018 Status: F Source: [place] CULTURE, URINE 1:07 PM [facility] REPOSITORY Urine Culture ORGANISM 1: Escherichia coli Dorsey Count >100,000 Escherichia coli: REACTION Amoxacillin/Clavulanic Acid $ 8 S Ampicillin $ >=32 R Ampicillin/Sulbactam $ 16 I Cefazolin $ <=4 S Cefepime $ <=1 S Ceftriaxone $ <=1 S Ciprofloxacin $ >=4 R ESBL - Ertapenim $$$ <=0.5 S Gentamicin $ >=16 R Imipenem *NF <=0.25 S Levofloxacin $ >=8 R Nitrofurantoin $ <=16 S Piperacillin/Tazobactam $$ <=4 S Tobramycin $ 8 I Trimethoprim/Sulfametho $ >=320 R (NF) indicates non-formulary drug at [facility]. Approval by Infectious Disease Specialist required before non-formulary drugs may be ordered and/or dispensed. Performed By: #### M100.0650 #### [facility] [address] [place], [address] Observed: 11/26/2017 Status: F Source: [place] CULTURE, URINE 8:18 PM [facility] REPOSITORY Urine Culture Below infection level. ORGANISM 1: Mixed Gram Pos AND Gram Neg Org Dorsey Count 1000-10,000 Performed By: #### M100.0650 #### [facility] [address] [place], [address] CARDIOLOGY VISIT Observed: 10/29/2017 Status: F Source: [place] RE[place] 12:29 PM [facility] REPOSITORY [facility] 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 As you recall she had a transthoracic echocardiogram on 12/10/2015. At that time her left ventricle was thought to be normal, her LVEF was 60%, she had no obvious regional wall motion abnormalities and no obvious pericardial effusion. She had a stress nuclear study on 01/11/2016. At that time her nuclear images were thought to be within normal limits. Her gated LVEF was 72%. She had a stress echocardiogram performed on 06/28/2017. This was thought to be negative by ECG criteria and echocardiographic criteria for evidence of stress- induced myocardial ischemia. She had a diagnostic cardiac catheterization performed on 12/11/2015. At that time LAD was reported as having nonobstructive disease-midsegment, the LCx and RCA were reported as angiographically normal, the LV was reported as normal with an estimated LVEF of 65%. As you may recall she does have a history of underlying head and neck carcinoma. That was thought to be associated with her pericardial effusion which led to her pericardial window procedure. She continues to follow at [facility] for this on a yearly basis. She states she has chest x-rays performed. She did have a chest x-ray in May 2017 at [facility]. At that time there were no acute findings on her chest x-ray. She notes that she had been doing well. She was being treated with corticosteroids for an underlying reactive airway issue. She traveled to [place] on her corticosteroids. She notes her blood pressures were elevated. After returning to [place] she presented back to the [facility] emergency department because of concerns of a combination of heart rate being elevated and blood pressure being elevated and not feeling well. She underwent repeat cardiovascular evaluation which culminated in her stress echocardiogram as noted above. She noted once she was off her corticosteroids everything came under better control. At the present time she has not been complaining of recurrent tachycardic events or hypertensive events. There has been no issues with ongoing CHF or pulmonary edema. There has been no near syncope or syncope. Intake Vital Signs10/29/17 Height 5 ft 5 in 10/29/17 Weight: 118 lb 5 oz 10/29/17 Body Mass Index (BMI) 19.7 10/29/17 Blood Pressure 140/72 Intake Visit Reasons: 9 M FU Allergies codeine Adverse Reaction (Verified 10/29/17 11:37) HEART RACES indomethacin [From Indocin] Adverse Reaction (Verified 10/29/17 11:37) Abd cramps/diarrhea indomethacin sodium [From Indocin] Adverse Reaction (Verified 10/29/17 11:37) Abd cramps/diarrhea levofloxacin [From Levaquin] Adverse Reaction (Verified 10/29/17 11:37) INCREASED BLOOD PRESSURE nitrofurantoin [From Macrobid] Adverse Reaction (Verified 10/29/17 11:37) Nausea/Vom/Diarrhea propoxyphene napsylate [From Darvocet-N 100] Adverse Reaction (Verified 10/29/17 11:37) PASSES OUT Medications Amlodipine [Norvasc] 5 mg PO DAILY 12/08/14 [History Confirmed 10/29/17] Calcium Carb/Vitamin D3/Vit K1 [Citracal Soft Chew] 1 ea PO QHS 12/08/14 [History Confirmed 10/29/17] Lorazepam [Ativan] 0.5 mg PO BID PRN PRN 12/08/14 [History Confirmed 10/29/17] Pravastatin [Pravachol] 80 mg PO QHS 12/08/14 [History Confirmed 10/29/17] Raloxifene HCl [Evista] 60 mg PO QHS 12/10/15 [History Confirmed 10/29/17] Albuterol Inhaler [Ventolin Hfa] 1 - 2 puff INHALATION Q6H PRN PRN #1 inhaler 05/30/17 [Rx Confirmed 10/29/17] Metoprolol(XL)Succ [Toprol Xl (Beta Rasheeda)] 50 mg PO DAILY 05/30/17 [History Confirmed 10/29/17] nitroglycerin 0.4 mg sublingual tablet 0.4 mg SUBLINGUAL Q5- 15M PRN 10/26/17 [History Confirmed 10/29/17] cranberry fruit concentrate 250 mg chewable tablet 250 mg PO BID tab 10/29/17 [History Confirmed 10/29/17] levocetirizine 5 mg tablet 5 mg PO QDAY tab 10/29/17 [History Confirmed 10/29/17] pantoprazole 40 mg tablet,delayed release 40 mg PO QDAY 10/29/17 [History Confirmed 10/29/17] ranitidine 150 mg tablet 150 mg PO BID tab 10/29/17 [History Confirmed 10/29/17] sucralfate 1 gram tablet 1 g PO TID tab 10/29/17 [History Confirmed 10/29/17] PENDING SALE TO [facility] Medical History COPD (chronic obstructive pulmonary disease) (Chronic) Hyperlipidemia (Chronic) History of non-ST elevation myocardial infarction (NSTEMI) (Chronic) Takotsubo cardiomyopathy (Chronic) Atherosclerotic heart disease of [place] coronary artery without angina pectoris (Chronic) Asthma (Chronic) Benign essential HTN (Chronic) History of coronary vasospasm (Chronic) Surgical History History of pericardiectomy (Chronic) History of left heart catheterization (Chronic) Family History Father , age 92, had [place] age 35 Myocardial infarction, Onset Age: 35 Social History Smoking Status: Never smoker ROS Const Const: Positive for fatigue (tires more often); negative for weakness, weight gain, weight loss, frequent falls or excessive sweating Eyes Eyes: Negative for change in vision, blurry vision or transient loss of vision ENT ENT: Negative for dizziness, Negative for balance problems Cardio Chest Pain: No Palpitations: Positive for Yes (occasional) Palpitations: fast Edema: None Muscle aches with walking: None Resp Respiratory: Positive for SOB with activity (baseline); negative for SOB at rest GI GI: Negative vomiting or vomiting blood/hematemesis : Negative for hematuria Musc Musc: Negative for balance problems, muscle aches/ myalgia, muscle weakness or joint pain Skin Skin: Negative non-healing lesions or rash Neuro Neuro: Negative for weakness, Negative for blurry vision, Negative for dizziness, Negative for lightheadedness, Negative for frequent falls, Negative for orthostatic symptoms Alejandro Hematologic/Lymphatic: Negative for easy bleeding Endo Endo: Positive for fatigue (tires more often); negative for excessive sweating Psych Psych: Negative for anxiety or depression Allergy Allergy/Immunology: Negative for hives, Negative for rash Cardiology Exam Const Appearance: cooperative, healthy appearing, comfortable, no acute distress, well developed and well groomed Nutritional Appearance: thin and well nourished Orientation: alert, awake and oriented x3 Head Head: normal to inspection, normocephalic and atraumatic Ears: hearing grossly normal bilaterally Nose: external nose normal Face and Sinus: face symmetric Mouth: oral mucosae normal Teeth and gingiva: dentition normal Eyes General: appearance normal, both eyes and all related structures Eyelids: eyelids normal Conjunctivae: conjunctivae normal Pupils: PERRL EOM: EOM intact bilaterally Neck Neck: normal visual inspection and full ROM Carotids: normal carotid upstroke Chest Chest inspection: normal inspection of the chest and symmetric chest movement Auscultation: Bilateral: Clear to Auscultation Cardio Palpation: normal PMI Rate: regular rate Rhythm: regular rhythm Heart sounds: S1 normal, S2 normal and positive S4 GI GI: normal to inspection, soft, no hepatosplenomegaly and bowel sounds present Neuro General: alert, awake and oriented x3 Skin Skin: no rashes or lesions noted Extremities Pulses: Normal: Right Femoral Pulse, Left Femoral Pulse, Right Radial Pulse, Left Radial Pulse Lower Extremity Edema: None: Bilateral Psych Psychological: normal affect Assessment AND Plan 1. Takotsubo cardiomyopathy I51.81 Plan She does have a history of underlying Takotsubo cardiomyopathy or apical ballooning syndrome or a stress-induced cardiomyopathy. She appears to have remained without any recurrent definitive events or decline in her overall LV systolic function. At the present time she will continue her current medical management and follow-up. 2. History of non-ST elevation myocardial infarction (NSTEMI) I25.2 Plan She does have a history of a non-ST segment elevation [place] based upon her original concerns on presentation. However again it is felt this is related to her underlying aforementioned cardiomyopathy and coronary artery vasospasm as opposed to classic atherosclerotic coronary artery disease. At the present time she appears to be doing well. She will continue her current medical management. 3. History of coronary vasospasm Z86.79 Plan Again it is felt that this was the etiology for her original presentation leading to her original diagnosis. She has continued medical management. Based on a combination of concerns she has required both beta-rasheeda therapy and calcium channel antagonist therapy the balance concerns with her cardiac rate as well as her blood pressure and her cardiovascular condition. 4. Atherosclerosis of [place] coronary artery of [place] heart without angina pectoris I25.10 Nonobstructive CAD per cath 12/11/[address] Narvaez [facility] Plan She does have an element of underlying CAD. It is been on the mild side. She needs to continue risk factor modification and medical management. 5. Hyperlipidemia, unspecified hyperlipidemia type E78.5 Plan Her lipid profile was recently reviewed. Her lipids appear to be under good control overall. 6. Benign essential HTN I10 Plan Her blood pressure appears to be reasonably well controlled today. She will continue to monitor for any obvious concerning findings. Plan Detail Additional Comments She will be scheduled for an outpatient visit approximately 9 months unless needed sooner. Thank you for allowing me to participate in the care of your patient. Please don't hesitate to call if any issues arise. This note was generated using a voice recognition system and there may be incorrect words, spelling or punctuation that were not noted when reviewing the office note prior to saving. Follow Up 9 Months (PFM) Coding Level of Care Code Off vis,est,level 3 Diagnoses Takotsubo cardiomyopathy I51.81 History of non-ST elevation myocardial infarction (NSTEMI) I25.2 History of coronary vasospasm Z86.79 Atherosclerosis of [place] coronary artery of [place] heart without angina pectoris I25.10 [place] vs. 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 TYPE CODE TESTS RESULT OUT OF RANGE REFERENCE UNITS LAB L501.1500 6.4-8.2 g/dL Normal T PROT 7.3 LAB L501.1800 3.2-5.0 g/dL Normal ALB 4.0 LAB L501.1950 2.2-4.2 g/dL Normal GLOB 3.3 LAB L501.4100 15-37 U/L Normal AST 17 LAB L501.4305 45-117 U/L Normal ALK P 68 LAB L501.4405 13-56 U/L Normal ALT 30 Result Comment: Please note revised ALT reference range effective 2017. LAB L501.4600 0.20-1.00 mg/dL Normal T BILI 0.40 LAB L501.4700 0.00-0.30 mg/dL Normal D BILI 0.10 Performed By: #### L500.3400 #### [facility] [address] [place], [place], [address] LIPID PROFILE Collected: 10/22/2017 Status: F Source: MEME 11:51 AM [facility] REPOSITORY Order Comment: Order Date: 03/23/17 Order Info: 0788-1 - *Hepatic Function Panel Order Info: 24671-6 - *Lipid Profile CC PCP Comments: 12 hours fasting, may have water. TYPE CODE TESTS RESULT OUT OF RANGE REFERENCE UNITS LAB L501.4900 200 mg/dL Normal CHOL 176 Result Comment: <200 mg/dL Desirable 200-240 mg/dL Borderline >240 mg/dL High Risk LAB L501.5000 mg/dL Normal TRIG 61 Result Comment: The drugs N-Acetylcysteine and Metamizole may falsely depress this assay. Serum Triglycerides Reference Interval Normal <150 mg/dL Borderline high 150 - 199 mg/dL High 200 - 499 mg/dL Very High > or = 500 mg/dL LAB L501.6400 mg/dL Normal HDL 84 Result Comment: The drugs N-Acetylcysteine and Metamizole may falsely depress this assay. Reference Range HDL <40 mg/dL Low HDL Cholesterol HDL >or= 60 mg/dL High HDL Cholesterol LAB L501.6500 0-130 mg/dL Normal LDL 80 LAB L501.6600 5-40 mg/dL Normal VLDL 12 Performed By: #### L500.4100 #### [facility] [address] [place], [address] ALLERGIES ALLERGIES DATE TYPE / CODE NAME / CODE REACTION SEVERITY SOURCE 10/15/2018 Drug propoxyphene PASSES OUT Unknown [place] Allergy/416 napsylate/[id number] Community 110344([place] [address]ository 10/15/2018 Drug indomethacin Abd Unknown [place] Allergy/416 sodium/[id number]( cramps/diarrhea Community 653963([facility] ED CT) Repository 10/15/2018 Drug codeine/[id number] HEART RACES Unknown [place] Allergy/416 (RXNORM) Community 797403([facility] ED CT) Repository 10/15/2018 Drug indomethacin/F0060 Abd Unknown [place] Allergy/416 39414(RXNORM) cramps/diarrhea Community 857998([facility] ED CT) Repository 10/15/2018 Drug nitrofurantoin/F00 Nausea/Vom/Diar Unknown [place] Allergy/669 6552140(RXNORM) chanel Community 968566([facility] ED CT) Repository 10/15/2018 Drug levofloxacin/F0060 INCREASED BLOOD Unknown [place] Allergy/416 80794(RXNORM) PRESSURE Community 744745([facility] ED CT) Repository ENCOUNTERS ENCOUNTERS ADMIT/DISCHARGE ACCOUNT NUMBER ADMITTING ENCOUNTER LOCATION SOURCE CLASS 10/15/2018 [id number] [facility] ding:PCURoom Repository : QAU055Zup: 1 10/15/2018 [id number] [facility], Ambulatory BMSBuilding: [place] Ghasem BMS.[facility] Repository 09/03/2018 [id number] Ambulatory [facility] ding:MFPLAB Repository 08/19/2018/08/19/20 [id number] Ambulatory BMSBuilding: [place] 18 BMS.[facility] Repository 07/10/2018 [id number] Ambulatory [facility] ding:MFPLAB Repository 05/16/2018 [id number] Ambulatory [facility] ding:MTLAB Repository 04/12/2018 [id number] Ambulatory [facility] ding:OPBI Repository 03/28/2018 [id number] Ambulatory [facility] ding:LABSPEC Repository 03/08/2018 [id number] Ambulatory [facility] ding:RAD.FUT Repository URE 02/21/2018 [id number] Ambulatory [facility] ding:MTLAB Repository 02/14/2018 [id number] Ambulatory Building:CT5 [facility] Repository 11/26/2017 [id number] Ambulatory [facility] ding:LABSPEC Repository 10/29/2017/10/29/19 [id number] Ambulatory BMSBuilding: [place] 18 BMS.[facility] Repository 10/26/2017 [id number] Ambulatory BMSBuilding: [place] BMS.[facility] Repository 10/22/2017 [id number] [place] [facility] ding:MTLAB Repository PAYERS PAYERS ENCOUNTER GUARANTOR PAYER SUBSCRIBER SOURCE 10/15/2018 ALEXY E Primary ALEXY E [place] [id number] CR Insurance:MEDICARE ZAMMERTDOB: [address] A [facility] [id number] [place] [address]Jvh: Number: Repository [id number] () Date:2018-10-15 10/15/2018 Secondary IGOR N [place] Insurance:[facility] ZAMMERTDOB: [facility] [id number] Hospital Number: Repository [id number] Date:9618-84-30[address], [place] [address]WQ: 10/15/2018 Tertiary NOT GIVENUNK [place] Insurance:SELF PAY [facility] Number: Effective Repository Date:2018-10-15 10/15/2018 ALEXY E Primary ALEXY E [place] [id number] CR Insurance:MEDICARE ZAMMERTDOB: [address] A [facility] [id number] [place] [address]Hck: Number: Repository [id number] () Date:2018-10-15 10/15/2018 Secondary IGOR N [place] Insurance:WPS ZAMMERTDOB: [facility] [id number] Hospital Number: Repository [id number] Date:9764-89-56[address], [place] [address]QA: 10/15/2018 Tertiary NOT GIVENUNK [place] Insurance:SELF PAY [facility] Number: Effective Repository Date:2018-10-15 09/03/2018 ALEXY E Primary ALEXY E [place] [id number] CR Insurance:MEDICARE ZAMMERTDOB: [address] A [facility] [id number] [place] [address]Bnf: Number: Repository [id number] (HP) Date:2018-09-03 09/03/2018 Secondary IGOR N [place] Insurance:WPS ZAMMERTDOB: [facility] [id number] Hospital Number: Repository [id number] Date:0219-09-84[address] [place] [address]CN: 09/03/2018 Tertiary NOT GIVENUNK [place] Insurance:SELF PAY [facility] Effective Repository Date:2018-09-03 08/19/2018 ALEXY E Primary ALEXY E [place] [id number] CR Insurance:MEDICARE ZAMMERTDOB: [address] [id number] [address]Avn: Number: Repository [id number] (HP) Date:2017-10-29 08/19/2018 Secondary IGOR N [place] Insurance:WPS ZAMMERTDOB: [facility] [id number] Hospital Number: Repository [id number] Date:0850-26-33[address] [address]YZ: 08/19/2018 Tertiary NOT GIVENUNK [place] Insurance:SELF PAY [facility] Number: Effective Repository Date:2018-08-19 07/10/2018 ALEXY E Primary ALEXY E [place] [id number] CR Insurance:MEDICARE ZAMMERTDOB: [address] [id number] [address]Tel: Number: Repository [id number] (HP) Date:2018-07-10 07/10/2018 Secondary IGOR N [place] Insurance:WPS ZAMMERTDOB: [facility] [id number] Hospital Number: Repository [id number] Date:9126-52-32W[address] [address]MQ: 07/10/2018 Tertiary NOT GIVENUNK [place] Insurance:SELF PAY Community [facility] Number: Effective Repository Date:2018-07-10 05/16/2018 ALEXY E Primary ALEXY E [place] [id number] CR Insurance:MEDICARE ZAMMERTDOB: Community [address] [place] [address], PART A [facility] [id number] [facility] [address]Jfr: Number: Repository [id number] (HP) Date:2018-05-16 05/16/2018 Secondary IGOR N [place] Insurance:S ZAMMERTDOB: [facility] [id number] Hospital Number: Repository [id number] Date:0973-29-38[address], [place] [address]VQ: 05/16/2018 Tertiary NOT GIVENUNK [place] Insurance:SELF PAY [facility] Hospital Number: Effective Repository Date:2018-05-16 04/12/2018 ALEXY E Primary ALEXY E [place] [id number] CR Insurance:MEDICARE ZAMMERTDOB: [address] PART A [facility] [id number] [facility] [address]Smn: Number: Repository [id number] (HP) Date:2018-04-01 04/12/2018 Secondary IGOR N [place] Insurance:WPS ZAMMERTDOB: [facility] [id number] Hospital Number: Repository [id number] Date:0033-95-68Q[address], [place] [address]NR: 04/12/2018 Tertiary NOT GIVENUNK [place] Insurance:SELF PAY [facility] Hospital Number: Effective Repository Date:2018-04-01 03/28/2018 ALEXY E Primary ALEXY E [place] [id number] CR Insurance:MEDICARE ZAMMERTDOB: [address], PART A [facility] [id number] Hospital [place] [address]Hck: Number: Repository [id number] (HP) Date:2018-03-28 03/28/2018 Secondary IGOR N [place] Insurance:WPS ZAMMERTDOB: Community FOR [facility] [id number] Hospital Number: Repository [id number] Date:5418-05-50[address] [address]KK: 03/28/2018 Tertiary NOT GIVENUNK [place] Insurance:SELF PAY [facility] Number: Effective Repository Date:2018-03-28 03/08/2018 ALEXY E Primary ALEXY E [place] [id number] CR Insurance:MEDICARE ZAMMERTDOB: Community [address] [place] [address], PART A [facility] [id number] [facility] [address]Psz: Number: Repository [id number] (HP) Date:2018-03-08 03/08/2018 Secondary IGOR N [place] Insurance:WPS ZAMMERTDOB: [facility] FOR [facility] [id number] Hospital Number: Repository [id number] Date:4373-21-20JS [address] [address]HM: 03/08/2018 Tertiary NOT GIVENUNK [place] Insurance:SELF PAY [facility] Hospital Number: Effective Repository Date:2018-03-08 02/21/2018 ALEXY E Primary ALEXY E [place] [id number] CR Insurance:MEDICARE ZAMMERTDOB: Community [address] [place] [address] PART A [facility] [id number] [facility] [address]Wbv: Number: Repository [id number] (HP) Date:2018-02-21 02/21/2018 Secondary IGOR N [place] Insurance:WPS ZAMMERTDOB: [facility] FOR [facility] [id number] Hospital Number: Repository [id number] Date:5912-01-39[address] [address]FE: 02/21/2018 Tertiary NOT GIVENUNK [place] Insurance:SELF PAY [facility] Hospital Number: Effective Repository Date:2018-02-21 02/14/2018 ALEXY Primary ALEXY [facility] ZAMMERTDOB: Insurance:MEDICARE A ZAMMERTDOB: [place] [facility] Number: [id number] [facility] [id number] [address], Date:9510-01-39Lmym [address] [place] [address], Repository [place] [address]Tex: Name:[place] [id number]: (HP) (HP) 02/14/2018 Secondary [facility] Insurance: FOR ZAMMERTDOB: [facility] Number: [id number] [facility] [id number] Date:4875-04-27Acnq [address] [place] [address], Repository Name:[facility] [address]Ijc: (HP) 11/26/2017 ALEXY E Primary ALEXY E [place] [id number] CR Insurance:MEDICARE ZAMMERTDOB: [address], PART A [facility] [id number] Hospital [place] [address]Mlh: Number: Repository [id number] (HP) Date:2017-11-26 11/26/2017 Secondary Igor [place] Insurance:WPS ZammertDOB: [facility] [id number] Hospital Number: Repository [id number] Date:8771-97-35XY[address] [address]SG: 11/26/2017 Tertiary NOT GIVENUNK [place] Insurance:SELF PAY [facility] Hospital Number: Effective Repository Date:2017-11-26 10/29/2017 ALEXY E Primary ALEXY E [place] [id number] CR Insurance:MEDICARE ZAMMERTDOB: [address], PART A [facility] [id number] Hospital [place] [address]Omr: Number: Repository [id number] (HP) Date:2017-09-01 10/29/2017 Secondary Igor [place] Insurance:WPS ZammertDOB: [facility] FOR [facility] [id number] Hospital Number: Repository [id number] Date:7610-26-99[address] [place] [address]GH: 10/29/2017 Tertiary NOT GIVENUNK [place] Insurance:SELF PAY [facility] Hospital Number: Effective Repository Date:2017-09-01 10/26/2017 Igor [place] Primary ALEXY E Meme [id number] CR Insurance:MEDICARE ZAMMERTDOB: Community [address] [place] [address], PART A [facility] [id number] [facility] [address]Zki: Number: Repository [id number] (HP) Date:2017-10-26 10/26/2017 Secondary Igor [place] Insurance:WPS ZammertDOB: [facility] FOR [facility] [id number] Hospital Number: Repository [id number] Date:1412-33-85[address] [address]FJ: 10/26/2017 Tertiary NOT GIVENUNK [place] Insurance:SELF PAY [facility] Hospital Number: Effective Repository Date:2017-10-26 10/22/2017 Igor [place] Primary ALEXY E Meme [id number] CR Insurance:MEDICARE ZAMMERTDOB: Community [address] [place] [address], PART A [facility] [id number] [facility] [address]Oab: Number: Repository [id number] (HP) Date:2017-10-22 10/22/2017 Secondary Igor N [place] Insurance:WPS ZammertDOB: [facility] FOR [facility] [id number] Hospital Number: Repository [id number] Date:7852-64-50IS [address] [place] [address]OE: 10/22/2017 Tertiary NOT GIVENUNK Mem[place] Insurance:SELF PAY [facility] Hospital Number: Effective Repository Date:2017-10-22
== END ==
PROVIDERS: Family Provider Family Medicine; PCP Family Medicine; Visit Provider Family Medicine
DX: I10 Essential (primary) hypertension (principal)
CPT/HCPCS: 36415; 80048

== ENCOUNTER 2018-10-15 15:52 | Observation (INO) | payer MEDICARE, OTHER, SELFPAY ==
[2018-08-19 11:14] VITALS: BMI 19.7
[2018-10-15] VITALS (12 sets, daily range): BP systolic 115–150; BP diastolic 61–90; PULSE 64–101; RESP 15–21; TEMP 36.5–36.7; O2SAT 95–98; BMI 19.7; BMI 19.4
--- NOTE | 2018-10-15 16:21 | EKG12_ITS ---
Test Reason : CP Blood Pressure : / mmHG Vent. Rate : 098 BPM Atrial Rate : 098 BPM P-R Int : 162 ms QRS Dur : 072 ms QT Int : 338 ms P-R-T Axes : 059 023 058 degrees QTc Int : 431 ms Normal sinus rhythm Normal ECG Confirmed by JUSTINA SELLERS, VIRA ([id number]), makeup editor AMBROSE RAI ([id number] on 10/18/2018 2:31:47 PM Referred By: ML Confirmed By:VIRA HORN MD
--- NOTE | 2018-10-15 16:25 | RAD_ITS ---
STUDY: X-RAY CHEST REASON FOR EXAM: Female, 72 years old. Chest pain radiating to shoulders and jaw. TECHNIQUE: Single frontal view of the chest. COMPARISON: May 30, 2017 FINDINGS: There is stable hyperexpansion. There is no demonstrated pleural abnormality. There is stable mild cardiomegaly. Normal mediastinum and елена. Normal visualized pulmonary arteries. There is atherosclerotic calcification of the aortic arch with tortuosity. There is a kyphoplasty of the mid thoracic region unchanged. Normal visualized ribs, clavicles, and shoulders. There is no demonstrated abnormality of the visualized soft tissue structures of the upper abdomen. RAD/Chest 1 View (Portable) IMPRESSION: Mild cardiomegaly with hyperexpansion. No new or acute finding. Electronically Signed: Quan Lowe MD at 16:40 EST , Service support ,
[2018-10-15] MEDS: 0.9% Normal Saline 1,000 ML 150 ML IV (16:30)
[2018-10-15 16:54] LABS: Anion Gap 8 (5-15); BUN 11 mg/dL (7-18); BUN/Creat Ratio 14.6 RATIO (10-20); Calcium,Total 8.8 mg/dL (8.5-10.1); Chloride 93 mmol/L (98-107); Creatinine, Serum 0.75 mg/dL (0.55-1.02); EST Glomerular Filtration Rate 81 mL/min (>60); Est Glom Filt Rate - Afr Amer 97 mL/min (>60); Estimated Creatinine Clearance 42.49 ml/min; Glucose 120 mg/dL (74-106); Sodium Level 129 mmol/L (136-145)
[2018-10-15 17:00] LABS: Absolute Lymphocyte Count 1.58 X10^3/ul (0.83-4.51); Absolute Neutrophil Count 3.6 X10^3/uL (2.0-7.7); Basophil# 0.01 X10^3/uL; Basophil% 0.2 % (0-1); Eosinophil# 0.02 X10^3/uL; Eosinophils% 0.3 % (0-5); Hematocrit 36.7 % (37-47); Hemoglobin 12.4 g/dl (12.0-15.0); Lymphocyte # 1.58 X10^3/ul (4.0); Lymphocyte % 27.5 % (19-41); Mean Corp Hgb Conc 33.8 g/gl (32-36); Mean Corpuscular Hgb 31.8 pg (27.0-32.0); Mean Corpuscular Volume 94.1 fL (81-99); Mean Platelet Vol. 8.9 fl (6.2-12.0); Monocyte# 0.52 X10^3/uL; Neutrophil # 3.62 X10^3/uL (2.7-7.7); Platelet Count 346 K/mm3 (150-450); RBC Distribution Width CV 14.2 % (11.6-14.6); RBC Distribution Width SD 47.2 fl (35.1-43.9); White Blood Count 5.8 K/mm3 (4.4-11.0)
[2018-10-15 17:03] LABS: POSITIVE COUNT NO; POSITIVE DIFFERENTIAL NO; POSITIVE MORPHOLOGY NO
--- NOTE | 2018-10-15 17:36 | ED.VISSUMM ---
- ER Visit Summary Date of Service: 10/15/18 Chief Complaint: Chest pain History of Present Illness: The patient is a 72 F with intermittent chest pain for the past 2 weeks. Today's episode started approximate hour and a half prior to arrival. She describes substernal chest tightness that radiates up into her neck and her jaw. She does report shortness of breath. Pain was improved with nitroglycerin with EMS. Past history significant for coronary disease, [place], asthma, COPD. She had Takotsubo in the past and he has had a pericardial window. She states her last heart cath in a couple years ago showed a 30% lesion in the LAD. Physical Examination: Blood pressure is 162/98, otherwise vitals normal. Patient sitting upright in bed no acute distress. Head neck examination normal. Heart is regular rate and rhythm. Lungs sounds are clear. Abdomen is soft nontender. Lower external examination was no calf tenderness or edema. Test Results: EKG is sinus at 98 with no sign of acute ischemia. Portable chest x-ray shows mild cardiomegaly with hyperexpansion. No acute findings noted. CBC is unremarkable. Chemistry studies reveal a sodium of 129 which is chronic and unchanged from her baseline. Troponin is less than 0.015. Emergency Department Course and Treatment: Patient was given aspirin with EMS along with one sublingual nitro. She was given 1 additional sublingual nitro here. At this time patient is resting comfortably and reports very minimal chest discomfort. Patient does note that she was able to get on the treadmill and walk this morning and had no problems. I spoke with her director equipment, Dr. Hughes. He is familiar with this patient and she has had multiple episodes of similar chest pain. He recommended admitting for cycling of cardiac enzymes if her labs were negative here. She may or may not need a stress test tomorrow. Treatment Plan: [] Disposition: Admit Impression: Chest pain This note was generated with [employer] dictation software. It may contain incorrect words, spelling, and punctuation that were not noted in review of the chart prior to signing ED Disposition - Plan for ED Patient: Chief Complaint: Chest Pain Referrals: Malcolm Mariscal MD [Primary Care Provider] -
--- NOTE | 2018-10-15 17:39 | ED.DCSUM_ITS ---
- ER Visit Summary Date of Service: 10/15/18 Chief Complaint: Chest pain History of Present Illness: The patient is a 72 F with intermittent chest pain for the past 2 weeks. Today's episode started approximate hour and a half prior to arrival. She describes substernal chest tightness that radiates up into her neck and her jaw. She does report shortness of breath. Pain was improved with nitroglycerin with EMS. Past history significant for coronary disease, [place], asthma, COPD. She had Takotsubo in the past and he has had a pericardial window. She states her last heart cath in a couple years ago showed a 30% lesion in the LAD. Physical Examination: Blood pressure is 162/98, otherwise vitals normal. Patient sitting upright in bed no acute distress. Head neck examination normal. Heart is regular rate and rhythm. Lungs sounds are clear. Abdomen is soft nontender. Lower external examination was no calf tenderness or edema. Test Results: EKG is sinus at 98 with no sign of acute ischemia. Portable chest x-ray shows mild cardiomegaly with hyperexpansion. No acute findings noted. CBC is unremarkable. Chemistry studies reveal a sodium of 129 which is chronic and unchanged from her baseline. Troponin is less than 0.015. Emergency Department Course and Treatment: Patient was given aspirin with EMS along with one sublingual nitro. She was given 1 additional sublingual nitro here. At this time patient is resting comfortably and reports very minimal chest discomfort. Patient does note that she was able to get on the treadmill and walk this morning and had no problems. I spoke with her electronic warfare technical, Dr. Hughes. He is familiar with this patient and she has had multiple episodes of similar chest pain. He recommended admitting for cycling of cardiac enzymes if her labs were negative here. She may or may not need a stress test tomorrow. Treatment Plan: [] Disposition: Admit Impression: Chest pain This note was generated with [employer] dictation software. It may contain incorrect words, spelling, and punctuation that were not noted in review of the chart prior to signing ED Disposition - Plan for ED Patient: Chief Complaint: Chest Pain Referrals: Malcolm Mariscal MD [Primary Care Provider] -
--- NOTE | 2018-10-15 19:03 | PCM.HP.STD ---
Problem List (1) History of pericardiectomy Status: Chronic Comment: 03/09/[address] Chris Morse for recurrent pericardial effusion (2) COPD (chronic obstructive pulmonary disease) Status: Chronic (3) Hyperlipidemia Status: Chronic Qualifiers: (4) History of non-ST elevation myocardial infarction (NSTEMI) Status: Chronic (5) Takotsubo cardiomyopathy Status: Chronic (6) Atherosclerotic heart disease of [place] coronary artery without angina pectoris Status: Chronic Qualifiers: Comment: Nonobstructive CAD per cath 12/11/[address] Narvaez [facility] (7) Asthma Status: Chronic (8) Benign essential HTN Status: Chronic History of Present Illness Date of Admission: 10/15/18 Chief Complaint: Chest pain. The patient is a 72 year old F with past medical history as mentioned above presented to the emergency room because of not feeling well, headache and chest pain. Today around 2 PM, she started feeling not well, felt hot and flushed on her face, associated with headache and shortly after, she started having retrosternal chest pain, described as chest tightness, radiates to both sides of her neck and both sides of her jaw, associated with mild shortness of breath and dizziness and without aggravating or relieving factors. At that time, she took her blood pressure and it was 220 systolic. According to the patient, EMS found that her blood pressure was 220/112. At this time, her pain improved after she received nitroglycerin. In the emergency department, her vital signs were stable. Her blood pressure was 143/87, afebrile, heart rate is stable. Her routine blood work was remarkable for sodium of 129 which is chronic, otherwise normal. EKG revealed normal sinus rhythm, normal QRS, normal QTC, no acute ischemic changes. Troponin is negative. Chest x-ray showed no acute findings. She is being admitted for atypical chest pain for evaluation and hypertensive urgency. Past Medical History Past Medical History (Chronic Problems): Chronic Problems (Last Reviewed 08/19/18 @ 11:08 by Barbie Sultana) 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 Chris Morse for recurrent pericardial effusion COPD (chronic obstructive pulmonary disease) (Chronic) Hyperlipidemia (Chronic) History of non-ST elevation myocardial infarction (NSTEMI) (Chronic) Takotsubo cardiomyopathy (Chronic) History of left heart catheterization (Chronic) 12/05/2006 @ [facility] per Dr. Hughes; 12/11/[address] Narvaez@ [facility] Atherosclerotic heart disease of [place] coronary artery without angina pectoris (Chronic) Nonobstructive CAD per cath 12/11/[address] Narvaez [facility] Asthma (Chronic) Benign essential HTN (Chronic) Osteoporosis (Chronic) History of coronary vasospasm (Chronic) Tongue cancer (Chronic) 1998 Medical History: Medical History (Last Reviewed 08/19/18 @ 11:08 by Barbie Sultana) COPD (chronic obstructive pulmonary disease) (Chronic) J44.9 Hyperlipidemia (Chronic) E78.5 History of non-ST elevation myocardial infarction (NSTEMI) (Chronic) I25.2 Takotsubo cardiomyopathy (Chronic) I51.81 Atherosclerotic heart disease of [place] coronary artery without angina pectoris (Chronic) I25.10 Nonobstructive CAD per cath 12/11/[address] Narvaez [facility] Asthma (Chronic) J45.909 Benign essential HTN (Chronic) I10 History of coronary vasospasm (Chronic) Z86.79 Allergies codeine Adverse Reaction (Verified 10/15/18 16:00) HEART RACES indomethacin [From Indocin] Adverse Reaction (Verified 10/15/18 16:00) Abd cramps/diarrhea indomethacin sodium [From Indocin] Adverse Reaction (Verified 10/15/18 16:00) Abd cramps/diarrhea levofloxacin [From Levaquin] Adverse Reaction (Verified 10/15/18 16:00) INCREASED BLOOD PRESSURE nitrofurantoin [From Macrobid] Adverse Reaction (Verified 10/15/18 16:00) Nausea/Vom/Diarrhea propoxyphene napsylate [From Darvocet-N 100] Adverse Reaction (Verified 10/15/18 16:00) PASSES OUT Home Medications: Ambulatory Orders Medication Instructions Recorded Amlodipine [Norvasc] 5 mg PO DAILY 12/08/14 Calcium Carb/Vitamin D3/Vit K1 2 ea PO DAILY 12/08/14 [Citracal Soft Chew] Lorazepam [Ativan] 0.5 mg PO DAILY PRN PRN 12/08/14 Pravastatin [Pravachol] 80 mg PO QHS 12/08/14 Albuterol Inhaler [Ventolin Hfa] 1 - 2 puff INHALATION Q6H PRN PRN 09/06/17 #1 inhaler cranberry fruit concentrate 250 mg 250 mg PO DAILY tab 10/29/17 chewable tablet levocetirizine 5 mg tablet 5 mg PO QHS PRN tab 10/29/17 ranitidine 150 mg tablet 150 mg PO DAILY tab 10/29/17 sucralfate 1 gram tablet 1 gm PO QHS PRN tab 10/29/17 metoprolol succinate ER 50 mg 50 mg PO DAILY #90 tab 05/20/18 tablet,extended release 24 hr Nitroglycerin [Nitrolingual [place]] 0.4 mg SUBLINGUAL PRN PRN 10/15/18 Pantoprazole Sodium 40 mg PO DAILY 10/15/18 Raloxifene HCl [Evista] 60 mg PO DAILY 10/15/18 Surgical History: Surgical History (Last Reviewed 08/19/18 @ 11:08 by Barbie Sultana) History of pericardiectomy (Chronic) Z98.890 03/09/[address] Chris Morse for recurrent pericardial effusion History of left heart catheterization (Chronic) Z98.890 12/05/2006 @ [facility] per Dr. Hughes; 12/11/[address] Narvaez@ [facility] History of cataract surgery Z98.49 Rt Surgical History: - - Pericardial window, partial tongue resection 1998 for tongue carcinoma, hysterectomy 1991, right neck region lymph node resection 1998, thoracic disc surgery 2012, appendectomy. Psychiatric History: No pertinent psych hx BREAD DUMPER History: No pertinent BREAD DUMPER history Lives: Spouse/ Significant Other Smoking Status: Never smoker Alcohol: None Drugs: None - *Family History Maternal Family History: Family History (Last Reviewed 08/19/18 @ 11:08 by Barbie Sultana) Father Myocardial infarction, Onset Age: 35 History Items: Cancer - age 84 Paternal Family History: Family History (Last Reviewed 08/19/18 @ 11:08 by Barbie Sultana) Father Myocardial infarction, Onset Age: 35 History Items: Heart Disease - age 93, Hypertension Offspring Family History: Family History (Last Reviewed 08/19/18 @ 11:08 by Barbie Sultana) Father Myocardial infarction, Onset Age: 35 History Items: - - 4 children and 4 grandchildren in good health Review of Systems Constitutional: Denies: Anorexia, Chills, Fever, Weakness Eyes: Denies: Blurred vision, Double vision, Drainage, Vision Change HEENT: Denies: Difficulty Hearing, Ear Pain, Eye Pain, Nasal Congestion, Sore Throat Cardiovascular: Reports: Chest Pain, Chest Tightness, Light Headedness. Denies: Heaviness, Orthopnea, Paroxysmal Noc. Dyspnea, Syncope Respiratory: Reports: Shortness of Breath. Denies: Cough, Hemoptysis, Pleuritic Pain, Sputum production, Wheezing Gastrointestinal: Reports: Nausea. Denies: Abdominal Pain, Constipation, Diarrhea, Vomiting Genitourinary: Denies: Dysuria, Frequency, Hematuria Musculoskeletal: Denies: Arm Pain, Back Pain, Foot Pain Skin: Denies: Dryness, Rash Neurological: Reports: Headaches. Denies: Balance problems, Double vision, Change in Speech, Slurred speech, Confusion, Incoordination, Numbness Psychiatric: Denies: Anxiety, Depression Endocrine: Denies: Change in Body Habitus, Polydipsia VTE Information - Inpt Only VTE Present on Admission: No VTE Mechan Device Prophylaxis: None VTE Pharm Prophylaxis ordered?: Yes - Physical Exam General: Oriented x3, Cooperative, No apparent distress HEENT: Atraumatic, PERRLA, EOMI, Normocephalic Oral: Moist Mucosa, No Gingival or Mucosal Lesions/ Ulcerations Neck: Supple, No JVD, Negative Carotid Bruits, Trachea Midline, Thyroid Normal Size and Texture Lungs: Clear to auscultation, No rhonchi, No wheeze, No rales, Diminished Cardiovascular: Regular rate, Regular Rhythm, Normal S1, Normal S2, PMI Normal Abdomen: Bowel Sounds Present, Soft, Non Tender, Non-Distended, No Hepato-splenomegaly Extremities: No clubbing, No cyanosis, No edema Skin: No rashes, No breakdown Lymphatic: No Cervical, Supraclavicular, or Inguinal Adenopathy Neurological: Cranial nerves II-XII grossly intact, Motor Exam 5/5 strength throughout Psych/Mental Status: Normal Affect, Appropriate, Alert and oriented to time, place, person, mood and affect Vital Signs Temp Pulse Resp BP Pulse Ox 98.1 F 81 15 145/76 H 97 10/15/18 15:52 10/15/18 18:39 10/15/18 18:00 10/15/18 18:00 10/15/18 18:00 Oxygen Delivery Method Room Air Weight: 115 lb 1.301 oz Body Mass Index (BMI) 19.4 Laboratory Tests Past 24 Hrs 10/15/18 10/15/18 16:00 16:00 WBC 5.8 RBC 3.90 L Hgb 12.4 Hct 36.7 L MCV 94.1 MCH 31.8 MCHC 33.8 RDW 14.2 RDW Differential 47.2 H Plt Count 346 MPV 8.9 Immature Gran % (Auto) 0.000 Neut % (Auto) 63.0 Lymph % (Auto) 27.5 [place] % (Auto) 9.0 Eos % (Auto) 0.3 Baso % (Auto) 0.2 Absolute Neuts (auto) 3.6 Absolute Lymphs (auto) 1.58 Total Counted Not Reportable Sodium 129 L Potassium 5.0 Chloride 93 L Carbon Dioxide 28.0 Anion Gap 8 BUN 11 Creatinine 0.75 Estim Creat Clear Calc 42.49 Est GFR (MDRD) Af Amer 97 Est GFR (MDRD) Non-Af 81 BUN/Creatinine Ratio 14.6 Glucose 120 H Calcium 8.8 Troponin I < 0.015 Clinical Impression(s) from Imaging Studies Chest X-Ray 10/15/18 16:25 IMPRESSION: Mild cardiomegaly with hyperexpansion. No new or acute finding. Electronically Signed: Quan Lowe MD at 16:40 EST , Service support , Assessment/Plan This is a 72 years old female patient presented to the ED because of chest pain and elevated blood pressure and she is being admitted for evaluation and treatment. #1 atypical chest pain: Could be due to highly elevated blood pressure. EKG revealed no acute ischemic changes. Troponin is negative. Chest x-ray showed no acute findings. At this time, chest pain almost gone after blood pressure improved. At this time, blood pressure and other vital signs are stable. Plan: Admit to PCU for observation, cardiac monitoring, serial cardiac enzymes, control blood pressure, repeat EKG tomorrow morning, cardiology consult, Tylenol as needed, Zofran as needed, PT OT evaluation and treatment. #2 hypertensive urgency: Reportedly, blood pressure was 220/112 by EMS. Patient received nitroglycerin by EMS, pressure now is down to 140 systolic. Reportedly, patient has been having episodes of sudden onset elevation of blood pressure with tachycardia and she underwent workup for secondary hypertension and specifically pheochromocytoma by endocrinology as outpatient according to Dr. Hughes. She has been having those issues with sudden increase of her blood pressure and heart rate for many years. Patient states that she takes her medications every day as prescribed. At this time, blood pressure stable. Plan: Monitor blood pressure, continue Norvasc, metoprolol, IV Z PRN. #3 hypertension: Plan as above, blood pressure elevated but improved now. Plan as above. #4 history of Takotsubo cardiomyopathy: Stable, compensated, no evidence of acute CHF. #5 COPD: Clinically stable, pulse ox is maintained on room air. Plan for albuterol as needed. #6 CAD: Plan as above, continue metoprolol, Evista and statins. #7 history of pericardial effusion/status post pericardial window: Stable, no acute issues. 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 #9 chronic hyponatremia: Unclear etiology, it has been chronic. Sodium level is at her baseline. #10 DVT prophylaxis: Subcu Lovenox. This note was generated with [employer] dictation software. It may contain incorrect words, spelling, and punctuation that were not noted in checking the note before signing. Code Visit OBSV E&M: 77264 Initial observation care L3
--- NOTE | 2018-10-15 19:07 | HP.PCM_ITS ---
Problem List (1) History of pericardiectomy Status: Chronic Comment: 03/09/[address] Chris Morse for recurrent pericardial effusion (2) COPD (chronic obstructive pulmonary disease) Status: Chronic (3) Hyperlipidemia Status: Chronic Qualifiers: (4) History of non-ST elevation myocardial infarction (NSTEMI) Status: Chronic (5) Takotsubo cardiomyopathy Status: Chronic (6) Atherosclerotic heart disease of [place] coronary artery without angina pectoris Status: Chronic Qualifiers: Comment: Nonobstructive CAD per cath 12/11/[address] Narvaez [facility] (7) Asthma Status: Chronic (8) Benign essential HTN Status: Chronic History of Present Illness Date of Admission: 10/15/18 Chief Complaint: Chest pain. The patient is a 72 year old F with past medical history as mentioned above presented to the emergency room because of not feeling well, headache and chest pain. Today around 2 PM, she started feeling not well, felt hot and flushed on her face, associated with headache and shortly after, she started having retrosternal chest pain, described as chest tightness, radiates to both sides of her neck and both sides of her jaw, associated with mild shortness of breath and dizziness and without aggravating or relieving factors. At that time, she took her blood pressure and it was 220 systolic. According to the patient, EMS found that her blood pressure was 220/112. At this time, her pain improved after she received nitroglycerin. In the emergency department, her vital signs were stable. Her blood pressure was 143/87, afebrile, heart rate is stable. Her routine blood work was remarkable for sodium of 129 which is chronic, otherwise normal. EKG revealed normal sinus rhythm, normal QRS, normal QTC, no acute ischemic changes. Troponin is negative. Chest x-ray showed no acute findings. She is being admitted for atypical chest pain for evaluation and hypertensive urgency. Past Medical History Past Medical History (Chronic Problems): Chronic Problems (Last Reviewed 08/19/18 @ 11:08 by Barbie Sultana) 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 Chris Morse for recurrent pericardial effusion COPD (chronic obstructive pulmonary disease) (Chronic) Hyperlipidemia (Chronic) History of non-ST elevation myocardial infarction (NSTEMI) (Chronic) Takotsubo cardiomyopathy (Chronic) History of left heart catheterization (Chronic) 12/05/2006 @ [facility] per Dr. Hughes; 12/11/[address] Narvaez@ [facility] Atherosclerotic heart disease of [place] coronary artery without angina pectoris (Chronic) Nonobstructive CAD per cath 12/11/[address] Narvaez [facility] Asthma (Chronic) Benign essential HTN (Chronic) Osteoporosis (Chronic) History of coronary vasospasm (Chronic) Tongue cancer (Chronic) 1998 Medical History: Medical History (Last Reviewed 08/19/18 @ 11:08 by Barbie Sultana) COPD (chronic obstructive pulmonary disease) (Chronic) J44.9 Hyperlipidemia (Chronic) E78.5 History of non-ST elevation myocardial infarction (NSTEMI) (Chronic) I25.2 Takotsubo cardiomyopathy (Chronic) I51.81 Atherosclerotic heart disease of [place] coronary artery without angina pectoris (Chronic) I25.10 Nonobstructive CAD per cath 12/11/[address] Narvaez [facility] Asthma (Chronic) J45.909 Benign essential HTN (Chronic) I10 History of coronary vasospasm (Chronic) Z86.79 Allergies codeine Adverse Reaction (Verified 10/15/18 16:00) HEART RACES indomethacin [From Indocin] Adverse Reaction (Verified 10/15/18 16:00) Abd cramps/diarrhea indomethacin sodium [From Indocin] Adverse Reaction (Verified 10/15/18 16:00) Abd cramps/diarrhea levofloxacin [From Levaquin] Adverse Reaction (Verified 10/15/18 16:00) INCREASED BLOOD PRESSURE nitrofurantoin [From Macrobid] Adverse Reaction (Verified 10/15/18 16:00) Nausea/Vom/Diarrhea propoxyphene napsylate [From Darvocet-N 100] Adverse Reaction (Verified 10/15/18 16:00) PASSES OUT Home Medications: Ambulatory Orders Medication Instructions Recorded Amlodipine [Norvasc] 5 mg PO DAILY 12/08/14 Calcium Carb/Vitamin D3/Vit K1 2 ea PO DAILY 12/08/14 [Citracal Soft Chew] Lorazepam [Ativan] 0.5 mg PO DAILY PRN PRN 12/08/14 Pravastatin [Pravachol] 80 mg PO QHS 12/08/14 Albuterol Inhaler [Ventolin Hfa] 1 - 2 puff INHALATION Q6H PRN PRN 09/06/17 #1 inhaler cranberry fruit concentrate 250 mg 250 mg PO DAILY tab 10/29/17 chewable tablet levocetirizine 5 mg tablet 5 mg PO QHS PRN tab 10/29/17 ranitidine 150 mg tablet 150 mg PO DAILY tab 10/29/17 sucralfate 1 gram tablet 1 gm PO QHS PRN tab 10/29/17 metoprolol succinate ER 50 mg 50 mg PO DAILY #90 tab 05/20/18 tablet,extended release 24 hr Nitroglycerin [Nitrolingual [place]] 0.4 mg SUBLINGUAL PRN PRN 10/15/18 Pantoprazole Sodium 40 mg PO DAILY 10/15/18 Raloxifene HCl [Evista] 60 mg PO DAILY 10/15/18 Surgical History: Surgical History (Last Reviewed 08/19/18 @ 11:08 by Barbie Sultana) History of pericardiectomy (Chronic) Z98.890 03/09/[address] Chris Morse for recurrent pericardial effusion History of left heart catheterization (Chronic) Z98.890 12/05/2006 @ [facility] per Dr. Hughes; 12/11/[address] Narvaez@ [facility] History of cataract surgery Z98.49 Rt Surgical History: - - Pericardial window, partial tongue resection 1998 for tongue carcinoma, hysterectomy 1991, right neck region lymph node resection 1998, thoracic disc surgery 2012, appendectomy. 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 PROFESSOR OF HISTORY history Lives: Spouse/ Significant Other Smoking Status: Never smoker Alcohol: None Drugs: None - *Family History Maternal Family History: Family History (Last Reviewed 08/19/18 @ 11:08 by Barbie Sultana) Father Myocardial infarction, Onset Age: 35 History Items: Cancer - age 84 Paternal Family History: Family History (Last Reviewed 08/19/18 @ 11:08 by Barbie Sultana) Father Myocardial infarction, Onset Age: 35 History Items: Heart Disease - age 93, Hypertension Offspring Family History: Family History (Last Reviewed 08/19/18 @ 11:08 by Barbie Sultana) Father Myocardial infarction, Onset Age: 35 History Items: - - 4 children and 4 grandchildren in good health Review of Systems Constitutional: Denies: Anorexia, Chills, Fever, Weakness Eyes: Denies: Blurred vision, Double vision, Drainage, Vision Change HEENT: Denies: Difficulty Hearing, Ear Pain, Eye Pain, Nasal Congestion, Sore Throat Cardiovascular: Reports: Chest Pain, Chest Tightness, Light Headedness. Denies: Heaviness, Orthopnea, Paroxysmal Noc. Dyspnea, Syncope Respiratory: Reports: Shortness of Breath. Denies: Cough, Hemoptysis, Pleuritic Pain, Sputum production, Wheezing Gastrointestinal: Reports: Nausea. Denies: Abdominal Pain, Constipation, Diarrhea, Vomiting Genitourinary: Denies: Dysuria, Frequency, Hematuria Musculoskeletal: Denies: Arm Pain, Back Pain, Foot Pain Skin: Denies: Dryness, Rash Neurological: Reports: Headaches. Denies: Balance problems, Double vision, Change in Speech, Slurred speech, Confusion, Incoordination, Numbness Psychiatric: Denies: Anxiety, Depression Endocrine: Denies: Change in Body Habitus, Polydipsia VTE Information - Inpt Only VTE Present on Admission: No VTE Mechan Device Prophylaxis: None VTE Pharm Prophylaxis ordered?: Yes - Physical Exam General: Oriented x3, Cooperative, No apparent distress HEENT: Atraumatic, PERRLA, EOMI, Normocephalic Oral: Moist Mucosa, No Gingival or Mucosal Lesions/ Ulcerations Neck: Supple, No JVD, Negative Carotid Bruits, Trachea Midline, Thyroid Normal Size and Texture Lungs: Clear to auscultation, No rhonchi, No wheeze, No rales, Diminished Cardiovascular: Regular rate, Regular Rhythm, Normal S1, Normal S2, PMI Normal Abdomen: Bowel Sounds Present, Soft, Non Tender, Non-Distended, No Hepato- splenomegaly Extremities: No clubbing, No cyanosis, No edema Skin: No rashes, No breakdown Lymphatic: No Cervical, Supraclavicular, or Inguinal Adenopathy Neurological: Cranial nerves II-XII grossly intact, Motor Exam 5/5 strength throughout Psych/Mental Status: Normal Affect, Appropriate, Alert and oriented to time, place, person, mood and affect Vital Signs Temp Pulse Resp BP Pulse Ox 98.1 F 81 15 145/76 H 97 10/15/18 15:52 10/15/18 18:39 10/15/18 18:00 10/15/18 18:00 10/15/18 18:00 Oxygen Delivery Method Room Air Weight: 115 lb 1.301 oz Body Mass Index (BMI) 19.4 Laboratory Tests Past 24 Hrs 10/15/18 10/15/18 16:00 16:00 WBC 5.8 RBC 3.90 L Hgb 12.4 Hct 36.7 L MCV 94.1 MCH 31.8 MCHC 33.8 RDW 14.2 RDW Differential 47.2 H Plt Count 346 MPV 8.9 Immature Gran % (Auto) 0.000 Neut % (Auto) 63.0 Lymph % (Auto) 27.5 [place] % (Auto) 9.0 Eos % (Auto) 0.3 Baso % (Auto) 0.2 Absolute Neuts (auto) 3.6 Absolute Lymphs (auto) 1.58 Total Counted Not Reportable Sodium 129 L Potassium 5.0 Chloride 93 L Carbon Dioxide 28.0 Anion Gap 8 BUN 11 Creatinine 0.75 Estim Creat Clear Calc 42.49 Est GFR (MDRD) Af Amer 97 Est GFR (MDRD) Non-Af 81 BUN/Creatinine Ratio 14.6 Glucose 120 H Calcium 8.8 Troponin I < 0.015 Clinical Impression(s) from Imaging Studies Chest X-Ray 10/15/18 16:25 IMPRESSION: Mild cardiomegaly with hyperexpansion. No new or acute finding. Electronically Signed: Quan Lowe MD at 16:40 EST , Service support , Assessment/Plan This is a 72 years old female patient presented to the ED because of chest pain and elevated blood pressure and she is being admitted for evaluation and treatment. #1 atypical chest pain: Could be due to highly elevated blood pressure. EKG revealed no acute ischemic changes. Troponin is negative. Chest x-ray showed no acute findings. At this time, chest pain almost gone after blood pressure improved. At this time, blood pressure and other vital signs are stable. Plan: Admit to PCU for observation, cardiac monitoring, serial cardiac enzymes, control blood pressure, repeat EKG tomorrow morning, cardiology consult, Tylenol as needed, Zofran as needed, PT OT evaluation and treatment. #2 hypertensive urgency: Reportedly, blood pressure was 220/112 by EMS. Patient received nitroglycerin by EMS, pressure now is down to 140 systolic. Reportedly, patient has been having episodes of sudden onset elevation of blood pressure with tachycardia and she underwent workup for secondary hypertension and specifically pheochromocytoma by endocrinology as outpatient according to Dr. Hughes. She has been having those issues with sudden increase of her blood pressure and heart rate for many years. Patient states that she takes her medications every day as prescribed. At this time, blood pressure stable. Plan: Monitor blood pressure, continue Norvasc, metoprolol, IV Z PRN. #3 hypertension: Plan as above, blood pressure elevated but improved now. Plan as above. #4 history of Takotsubo cardiomyopathy: Stable, compensated, no evidence of acute CHF. #5 COPD: Clinically stable, pulse ox is maintained on room air. Plan for albuterol as needed. #6 CAD: Plan as above, continue metoprolol, Evista and statins. #7 history of pericardial effusion/status post pericardial window: Stable, no acute issues. 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 #9 chronic hyponatremia: Unclear etiology, it has been chronic. Sodium level is at her baseline. #10 DVT prophylaxis: Subcu Lovenox. This note was generated with [employer] dictation software. It may contain incorrect words, spelling, and punctuation that were not noted in checking the note before signing. Code Visit OBSV E&M: 32014 Initial observation care L3
[2018-10-15] MEDS: Pravastatin 80 MG Tablet PO (22:57)
[2018-10-16] VITALS (11 sets, daily range): BP systolic 104–180; BP diastolic 59–95; PULSE 62–90; RESP 14–18; TEMP 36.2–36.5; O2SAT 96–99
--- NOTE | 2018-10-16 05:55 | EKG12_ITS ---
Test Reason : AM Blood Pressure : / mmHG Vent. Rate : 069 BPM Atrial Rate : 069 BPM P-R Int : 184 ms QRS Dur : 092 ms QT Int : 410 ms P-R-T Axes : 061 043 057 degrees QTc Int : 439 ms Normal sinus rhythm Normal ECG Confirmed by JUSTINA SELLERS, VIRA ([id number]), editor city [place] RAI ([id number] on 10/18/2018 2:39:54 PM Referred By: [facility] Confirmed By:VIRA HORN MD
[2018-10-16] MEDS: Acetaminophen 325 MG Tablet 650 MG PO (07:45)
--- NOTE | 2018-10-16 08:33 | PCM.PN.HOSP ---
Subjective: Feels better today, chest pain is completely resolved Vitals/I&O's: Vital Signs Temp Pulse Resp BP Pulse Ox 97.7 F L 68 18 104/59 L 97 10/16/18 05:00 10/16/18 07:00 10/16/18 05:00 10/16/18 05:00 10/16/18 05:00 Oxygen Delivery Method Room Air Weight: 115 lb 1.301 oz Body Mass Index (BMI) 19.4 Intake and Output for Last 24 Hours 10/14/18 10/15/18 10/16/18 23:59 23:59 23:59 Intake Total 1047 / 1047 Balance 1047 / 1047 General: Alert, Oriented x3, Cooperative, No apparent distress HEENT: Atraumatic, EOMI, Normocephalic Oral: Moist Mucosa Neck: Supple, No JVD, Trachea Midline Lungs: Clear to auscultation, Normal air movement, No rhonchi, No wheeze, No rales, Diminished Cardiovascular: Regular rate, Regular Rhythm, Normal S1, Normal S2, No murmurs, No rub noted, No Gallop Abdomen: Soft, Non Tender, Non-Distended, No Hepato-splenomegaly Extremities: No edema, Capillary Refill Less than 3 Seconds Skin: No rashes, No breakdown Neurological: Neuro grossly intact, Sensory exam intact to light touch and pain Psych/Mental Status: Normal Affect, Appropriate Laboratory Results 10/15/18 16:00: WBC 5.8, RBC 3.90 L, Hgb 12.4, Hct 36.7 L, MCV 94.1, MCH 31.8, MCHC 33.8, RDW 14.2, RDW Differential 47.2 H, Plt Count 346, MPV 8.9, Immature Gran % (Auto) 0.000, Neut % (Auto) 63.0, Lymph % (Auto) 27.5, [place] % (Auto) 9.0, Eos % (Auto) 0.3, Baso % (Auto) 0.2, Absolute Neuts (auto) 3.6, Absolute Lymphs (auto) 1.58, Total Counted Not Reportable 10/15/18 16:00: Sodium 129 L, Potassium 5.0, Chloride 93 L, Carbon Dioxide 28.0, Anion Gap 8, BUN 11, Creatinine 0.75, Estim Creat Clear Calc 42.49, Est GFR (MDRD) Af Amer 97, Est GFR (MDRD) Non-Af 81, BUN/Creatinine Ratio 14.6, Glucose 120 H, Calcium 8.8, Troponin I < 0.015 10/15/18 19:15: Troponin I < 0.015 10/15/18 22:35: Troponin I < 0.015 Current Medications Acetaminophen (Tylenol) 650 mg PO Q6H PRN PRN PRN Reason: Fever, headache, pain Last Admin: 10/16/18 07:45 Dose: 650 mg Amlodipine Besylate (Norvasc) 5 mg PO DAILY [facility] Enoxaparin Sodium (Lovenox) 40 mg SC DAILY@1000 [facility] Famotidine (Pepcid) 20 mg PO DAILY [facility] Hydralazine HCl (Apresoline Iv) 10 mg IV Q8H PRN PRN PRN Reason: for SBP>160 Lorazepam (Ativan) 0.5 mg PO DAILY PRN PRN PRN Reason: ANXIETY Magnesium Hydroxide (Milk Of Magnesia) 30 ml PO DAILY PRN PRN Reason: Constipation Metoprolol Succinate (Toprol Xl (Beta [place])) 50 mg PO DAILY [facility] Nitroglycerin (Nitrostat) 0.4 mg SUBLINGUAL Q5M PRN PRN Reason: CARDIAC/CHEST PAIN Ondansetron HCl (Zofran) 4 mg IV Q6H PRN PRN PRN Reason: NAUSEA/VOMITING Pantoprazole Sodium (Protonix) 40 mg PO DAILY [facility] Pravastatin Sodium (Pravachol) 80 mg PO QHS [facility] Last Admin: 10/15/18 22:57 Dose: 80 mg Raloxifene HCl (Evista) 60 mg PO DAILY [facility] Sodium Chloride () 5 - 15 ml IV UD PRN PRN Reason: SALINE FLUSH Sucralfate (Carafate) 1 gm PO QHS [facility] Last Admin: 10/15/18 22:56 Dose: Not Given Medical Necessity - Tobacco Use Smoking Status: Never smoker Assessment/Plan 1 chest pain rule out/HTN/Takotsubo cardiomyopathy/CAD/HLD -She has been having multiple attacks this week with headache and chest pain with elevated blood pressures and negative x3 -She states that she is on family services worker as an outpatient who felt that she might have an adrenal tumor because her enzymes were borderline -Currently blood pressure is 104 systolic -May need to adjust medications to compensate including changing metoprolol to Coreg, states that her blood pressures at home are generally in the 130s-140s -Consult to cardiology for further elucidation -PT/OT evaluation and treatment 2. COPD -No acute exacerbation -Continue with home inhalers 3. GERD -Stable -Continue with PPI DVT: Lovenox Code Visit OBSV E&M: 94501 Subsequent observation care L2
--- NOTE | 2018-10-16 08:40 | PN_ITS ---
Subjective: Feels better today, chest pain is completely resolved Vitals/I&O's: Vital Signs Temp Pulse Resp BP Pulse Ox 97.7 F L 68 18 104/59 L 97 10/16/18 05:00 10/16/18 07:00 10/16/18 05:00 10/16/18 05:00 10/16/18 05:00 Oxygen Delivery Method Room Air Weight: 115 lb 1.301 oz Body Mass Index (BMI) 19.4 Intake and Output for Last 24 Hours 10/14/18 10/15/18 10/16/18 23:59 23:59 23:59 Intake Total 1047 / 1047 Balance 1047 / 1047 General: Alert, Oriented x3, Cooperative, No apparent distress HEENT: Atraumatic, EOMI, Normocephalic Oral: Moist Mucosa Neck: Supple, No JVD, Trachea Midline Lungs: Clear to auscultation, Normal air movement, No rhonchi, No wheeze, No rales, Diminished Cardiovascular: Regular rate, Regular Rhythm, Normal S1, Normal S2, No murmurs, No rub noted, No Gallop Abdomen: Soft, Non Tender, Non-Distended, No Hepato-splenomegaly Extremities: No edema, Capillary Refill Less than 3 Seconds Skin: No rashes, No breakdown Neurological: Neuro grossly intact, Sensory exam intact to light touch and pain Psych/Mental Status: Normal Affect, Appropriate Laboratory Results 10/15/18 16:00: WBC 5.8, RBC 3.90 L, Hgb 12.4, Hct 36.7 L, MCV 94.1, MCH 31.8, MCHC 33.8, RDW 14.2, RDW Differential 47.2 H, Plt Count 346, MPV 8.9, Immature Gran % (Auto) 0.000, Neut % (Auto) 63.0, Lymph % (Auto) 27.5, [place] % (Auto) 9.0, Eos % (Auto) 0.3, Baso % (Auto) 0.2, Absolute Neuts (auto) 3.6, Absolute Lymphs (auto) 1.58, Total Counted Not Reportable 10/15/18 16:00: Sodium 129 L, Potassium 5.0, Chloride 93 L, Carbon Dioxide 28.0, Anion Gap 8, BUN 11, Creatinine 0.75, Estim Creat Clear Calc 42.49, Est GFR (MDRD) Af Amer 97, Est GFR (MDRD) Non-Af 81, BUN/Creatinine Ratio 14.6, Glucose 120 H, Calcium 8.8, Troponin I < 0.015 10/15/18 19:15: Troponin I < 0.015 10/15/18 22:35: Troponin I < 0.015 Current Medications Acetaminophen (Tylenol) 650 mg PO Q6H PRN PRN PRN Reason: Fever, headache, pain Last Admin: 10/16/18 07:45 Dose: 650 mg Amlodipine Besylate (Norvasc) 5 mg PO DAILY [facility] Enoxaparin Sodium (Lovenox) 40 mg SC DAILY@1000 [facility] Famotidine (Pepcid) 20 mg PO DAILY [facility] Hydralazine HCl (Apresoline Iv) 10 mg IV Q8H PRN PRN PRN Reason: for SBP>160 Lorazepam (Ativan) 0.5 mg PO DAILY PRN PRN PRN Reason: ANXIETY Magnesium Hydroxide (Milk Of Magnesia) 30 ml PO DAILY PRN PRN Reason: Constipation Metoprolol Succinate (Toprol Xl (Beta [place]he[place])) 50 mg PO DAILY [facility] Nitroglycerin (Nitrostat) 0.4 mg SUBLINGUAL Q5M PRN PRN Reason: CARDIAC/CHEST PAIN Ondansetron HCl (Zofran) 4 mg IV Q6H PRN PRN PRN Reason: NAUSEA/VOMITING Pantoprazole Sodium (Protonix) 40 mg PO DAILY [facility] Pravastatin Sodium (Pravachol) 80 mg PO QHS [facility] Last Admin: 10/15/18 22:57 Dose: 80 mg Raloxifene HCl (Evista) 60 mg PO DAILY [facility] Sodium Chloride () 5 - 15 ml IV UD PRN PRN Reason: SALINE FLUSH Sucralfate (Carafate) 1 gm PO QHS [facility] Last Admin: 10/15/18 22:56 Dose: Not Given Medical Necessity - Tobacco Use Smoking Status: Never smoker Assessment/Plan 1 chest pain rule out/HTN/Takotsubo cardiomyopathy/CAD/HLD -She has been having multiple attacks this week with headache and chest pain with elevated blood pressures and negative x3 -She states that 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 COPD -No acute exacerbation -Continue with home inhalers 3. GERD -Stable -Continue with PPI DVT: Lovenox Code Visit OBSV E&M: 82599 Subsequent observation care L2
[2018-10-16] MEDS: Pantoprazole Sodium 40 MG Tablet PO (09:50)
[2018-10-16] MEDS: Raloxifene HCl 60 MG Tablet PO (09:50)
[2018-10-16] MEDS: Famotidine 20 MG Tablet PO (09:50)
--- NOTE | 2018-10-16 13:42 | PCM.DC ---
You will use the following diet at home:: Cardiac Your food should be the consistency of: Regular Your liquids should be the consistency of: Regular/Thin Discharge Activity: Return to Normal Activity Call your doctor if you observe: Shortness of breath, Dizziness, Fainting spells, Chest pain, Increased palpitations (irregular heartbeat) Allergies/Adverse Reactions: Allergies codeine Adverse Reaction (Verified 10/15/18 16:00) HEART RACES indomethacin [From Indocin] Adverse Reaction (Verified 10/15/18 16:00) Abd cramps/diarrhea indomethacin sodium [From Indocin] Adverse Reaction (Verified 10/15/18 16:00) Abd cramps/diarrhea levofloxacin [From Levaquin] Adverse Reaction (Verified 10/15/18 16:00) INCREASED BLOOD PRESSURE nitrofurantoin [From Macrobid] Adverse Reaction (Verified 10/15/18 16:00) Nausea/Vom/Diarrhea propoxyphene napsylate [From Darvocet-N 100] Adverse Reaction (Verified 10/15/18 16:00) PASSES OUT Medications to take at Discharge Calcium Carb/Vitamin D3/Vit K1 [Citracal Soft Chew] 2 ea PO DAILY 12/08/14 Lorazepam [Ativan] 0.5 mg PO DAILY PRN PRN 12/08/14 Pravastatin [Pravachol] 80 mg PO QHS 12/08/14 Albuterol Inhaler [Ventolin Hfa] 1 - 2 puff INHALATION Q6H PRN PRN #1 inhaler 05/30/17 cranberry fruit concentrate 250 mg chewable tablet 250 mg PO DAILY tab 10/29/17 levocetirizine 5 mg tablet 5 mg PO QHS PRN tab 10/29/17 ranitidine 150 mg tablet 150 mg PO DAILY tab 10/29/17 sucralfate 1 gram tablet 1 gm PO QHS PRN tab 10/29/17 metoprolol succinate ER 50 mg tablet,extended release 24 hr 50 mg PO DAILY #90 tab 05/20/18 Nitroglycerin [Nitrolingual [place]] 0.4 mg SUBLINGUAL PRN PRN 10/15/18 Pantoprazole Sodium 40 mg PO DAILY 10/15/18 Raloxifene HCl [Evista] 60 mg PO DAILY 10/15/18 amlodipine 5 mg tablet 5 mg PO DAILY #90 tab 01/23/19 Primary Care Physician: Malcolm Mariscal MD [Primary Care Provider] - Please follow up with your Primary Care Physician in: 3-5 days Test Results: Test results from this visit will be discussed in further detail at your follow-up appointment, if applicable. Please Follow Up With: Malcolm Hughes MD
--- NOTE | 2018-10-16 13:44 | PCM.DC.SUM ---
Discharge Date and Diagnosis Date of Admission: 10/15/18 Date of Discharge: 10/16/18 - Secondary Discharge Diagnosis Chronic Problems (Last Reviewed 08/19/18 @ 11:08 by Barbie Sultana) 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 Chris Morse for recurrent pericardial effusion COPD (chronic obstructive pulmonary disease) (Chronic) Hyperlipidemia (Chronic) History of non-ST elevation myocardial infarction (NSTEMI) (Chronic) Takotsubo cardiomyopathy (Chronic) History of left heart catheterization (Chronic) 12/05/2006 @ [facility] per Dr. Hughes; 12/11/[address] Narvaez@ [facility] Atherosclerotic heart disease of [place] coronary artery without angina pectoris (Chronic) Nonobstructive CAD per cath 12/11/[address] Narvaez [facility] Asthma (Chronic) Benign essential HTN (Chronic) Osteoporosis (Chronic) History of coronary vasospasm (Chronic) Tongue cancer (Chronic) 1998 Hospital Course and Treatment Imaging Results: CXR: IMPRESSION: Mild cardiomegaly with hyperexpansion. No new or acute finding. Consults: Cardiology Operations: None Procedures: None Summary of Care Provided: Per HPI: The patient is a 72 year old F with past medical history as mentioned above presented to the emergency room because of not feeling well, headache and chest pain. Today around 2 PM, she started feeling not well, felt hot and flushed on her face, associated with headache and shortly after, she started having retrosternal chest pain, described as chest tightness, radiates to both sides of her neck and both sides of her jaw, associated with mild shortness of breath and dizziness and without aggravating or relieving factors. At that time, she took her blood pressure and it was 220 systolic. According to the patient, EMS found that her blood pressure was 220/112. At this time, her pain improved after she received nitroglycerin. In the emergency department, her vital signs were stable. Her blood pressure was 143/87, afebrile, heart rate is stable. Her routine blood work was remarkable for sodium of 129 which is chronic, otherwise normal. EKG revealed normal sinus rhythm, normal QRS, normal QTC, no acute ischemic changes. Troponin is negative. Chest x-ray showed no acute findings. She is being admitted for atypical chest pain for evaluation and hypertensive urgency. Hospital Course: 1. Chest pain rule out/HTN/Takotsubo cardiomyopathy/CAD/[id number]-ocex-old female who presented with a headache and chest pain today she states that she has been getting his episodes multiple times a week because her blood pressure jumps up into the 200s. She states that she saw endocrinology and was told that she might have an adrenal tumor because some of her enzymes were borderline. Her baseline blood pressures are in the 130s-140s, during her admission her troponins were negative and her EKGs were unremarkable. Cardiology was consulted and they evaluated the patient and felt that they could do a stress test as an outpatient and that she should take an extra Norvasc 5 mg p.o. when she notices that her blood pressure is elevated, otherwise they felt she was stable for discharge home. Will need to follow-up with her primary care doctor as well as cardiology as an outpatient. This was discussed with the patient, she understood the plan and was okay with being discharged home. 2. Her other medical diagnoses were evaluated and her home medications were continued where appropriate - Physical Exam Vital Signs Temp Pulse Resp BP Pulse Ox 97.1 F L 88 16 137/75 H 98 10/16/18 09:45 10/16/18 11:00 10/16/18 09:45 10/16/18 09:45 10/16/18 09:45 Oxygen Delivery Method Room Air Weight: 115 lb 1.301 oz Body Mass Index (BMI) 19.4 Intake and Output for Last 24 Hours 10/14/18 10/15/18 10/16/18 23:59 23:59 23:59 Intake Total 1147 / 1147 Balance 1147 / 1147 Laboratory Tests Past 24 Hrs 10/15/18 10/15/18 10/15/18 16:00 16:00 19:15 WBC 5.8 RBC 3.90 L Hgb 12.4 Hct 36.7 L MCV 94.1 MCH 31.8 MCHC 33.8 RDW 14.2 RDW Differential 47.2 H Plt Count 346 MPV 8.9 Immature Gran % (Auto) 0.000 Neut % (Auto) 63.0 Lymph % (Auto) 27.5 [place] % (Auto) 9.0 Eos % (Auto) 0.3 Baso % (Auto) 0.2 Absolute Neuts (auto) 3.6 Absolute Lymphs (auto) 1.58 Total Counted Not Reportable Sodium 129 L Potassium 5.0 Chloride 93 L Carbon Dioxide 28.0 Anion Gap 8 BUN 11 Creatinine 0.75 Estim Creat Clear Calc 42.49 Est GFR (MDRD) Af Amer 97 Est GFR (MDRD) Non-Af 81 BUN/Creatinine Ratio 14.6 Glucose 120 H Calcium 8.8 Troponin I < 0.015 < 0.015 10/15/18 22:35 WBC RBC Hgb Hct MCV MCH MCHC RDW RDW Differential Plt Count MPV Immature Gran % (Auto) Neut % (Auto) Lymph % (Auto) [place] % (Auto) Eos % (Auto) Baso % (Auto) Absolute Neuts (auto) Absolute Lymphs (auto) Total Counted Sodium Potassium Chloride Carbon Dioxide Anion Gap BUN Creatinine Estim Creat Clear Calc Est GFR (MDRD) Af Amer Est GFR (MDRD) Non-Af BUN/Creatinine Ratio Glucose Calcium Troponin I < 0.015 Discharge Activity: Return to Normal Activity Call your doctor if you observe: Shortness of breath, Dizziness, Fainting spells, Chest pain, Increased palpitations (irregular heartbeat) Home Medications: Medications to take at Discharge Calcium Carb/Vitamin D3/Vit K1 [Citracal Soft Chew] 2 ea PO DAILY 12/08/14 Lorazepam [Ativan] 0.5 mg PO DAILY PRN PRN 12/08/14 Pravastatin [Pravachol] 80 mg PO QHS 12/08/14 Albuterol Inhaler [Ventolin Hfa] 1 - 2 puff INHALATION Q6H PRN PRN #1 inhaler 05/30/17 cranberry fruit concentrate 250 mg chewable tablet 250 mg PO DAILY tab 10/29/17 levocetirizine 5 mg tablet 5 mg PO QHS PRN tab 10/29/17 ranitidine 150 mg tablet 150 mg PO DAILY tab 10/29/17 sucralfate 1 gram tablet 1 gm PO QHS PRN tab 10/29/17 metoprolol succinate ER 50 mg tablet,extended release 24 hr 50 mg PO DAILY #90 tab 05/20/18 Nitroglycerin [Nitrolingual [place]] 0.4 mg SUBLINGUAL PRN PRN 10/15/18 Pantoprazole Sodium 40 mg PO DAILY 10/15/18 Raloxifene HCl [Evista] 60 mg PO DAILY 10/15/18 amlodipine 5 mg tablet 5 mg PO DAILY #90 tab 10/16/18 Primary Care Physician: Malcolm Mariscal MD [Primary Care Provider] - Please follow up with your Primary Care Physician in: 3-5 days Please Follow Up With: Malcolm Hughes MD Disposition: Home Minutes spent on discharge:: 35 Patient Condition:: Stable Medical Necessity - Tobacco Use Smoking Status: Never smoker Meaningful Use Info Meaningful Use Diagnoses (Choose all that apply): None applicable Code Visit OBSV E&M: 55384 Observation care discharge
--- NOTE | 2018-10-16 13:49 | DS.PCM_ITS ---
Discharge Date and Diagnosis Date of Admission: 10/15/18 Date of Discharge: 10/16/18 - Secondary Discharge Diagnosis Chronic Problems (Last Reviewed 08/19/18 @ 11:08 by Barbie Sultana) 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 Chris Morse for recurrent pericardial effusion COPD (chronic obstructive pulmonary disease) (Chronic) Hyperlipidemia (Chronic) History of non-ST elevation myocardial infarction (NSTEMI) (Chronic) Takotsubo cardiomyopathy (Chronic) History of left heart catheterization (Chronic) 12/05/2006 @ [facility] per Dr. Hughes; 12/11/[address] Narvaez@ [facility] Atherosclerotic heart disease of [place] coronary artery without angina pectoris (Chronic) Nonobstructive CAD per cath 12/11/[address] Narvaez [facility] Asthma (Chronic) Benign essential HTN (Chronic) Osteoporosis (Chronic) History of coronary vasospasm (Chronic) Tongue cancer (Chronic) 1998 Hospital Course and Treatment Imaging Results: CXR: IMPRESSION: Mild cardiomegaly with hyperexpansion. No new or acute finding. Consults: Cardiology Operations: None Procedures: None Summary of Care Provided: Per HPI: The patient is a 72 year old F with past medical history as mentioned above presented to the emergency room because of not feeling well, headache and chest pain. Today around 2 PM, she started feeling not well, felt hot and flushed on her face, associated with headache and shortly after, she started having retrosternal chest pain, described as chest tightness, radiates to both sides of her neck and both sides of her jaw, associated with mild shortness of breath and dizziness and without aggravating or relieving factors. At that time, she took her blood pressure and it was 220 systolic. According to the patient, EMS found that her blood pressure was 220/112. At this time, her pain improved after she received nitroglycerin. In the emergency department, her vital signs were stable. Her blood pressure was 143/87, afebrile, heart rate is stable. Her routine blood work was remarkable for sodium of 129 which is chronic, otherwise normal. EKG revealed normal sinus rhythm, normal QRS, normal QTC, no acute ischemic changes. Troponin is negative. Chest x-ray showed no acute findings. She is being admitted for atypical chest pain for evaluation and hypertensive urgency. Hospital Course: 1. Chest pain rule out/HTN/Takotsubo cardiomyopathy/CAD/BAN-23-bjcf-old female who presented with a headache and chest pain today she states that she has been getting his episodes multiple times a week because her blood pressure jumps up into the 200s. She states that she saw endocrinology and was told that she might have an adrenal tumor because some of her enzymes were borderline. Her baseline blood pressures are in the 130s-140s, during her admission her troponins were negative and her EKGs were unremarkable. Cardiology was consulted and they evaluated the patient and felt that they could do a stress test as an outpatient and that she should take an extra Norvasc 5 mg p.o. when she notices that her blood pressure is elevated, otherwise they felt she was stable for discharge home. Will need to follow-up with her primary care doctor as well as cardiology as an outpatient. This was discussed with the patient, she understood the plan and was okay with being discharged home. 2. Her other medical diagnoses were evaluated and her home medications were continued where appropriate - Physical Exam Vital Signs Temp Pulse Resp BP Pulse Ox 97.1 F L 88 16 137/75 H 98 10/16/18 09:45 10/16/18 11:00 10/16/18 09:45 10/16/18 09:45 10/16/18 09:45 Oxygen Delivery Method Room Air Weight: 115 lb 1.301 oz Body Mass Index (BMI) 19.4 Intake and Output for Last 24 Hours 10/14/18 10/15/18 10/16/18 23:59 23:59 23:59 Intake Total 1147 / 1147 Balance 1147 / 1147 Laboratory Tests Past 24 Hrs 10/15/18 10/15/18 10/15/18 16:00 16:00 19:15 WBC 5.8 RBC 3.90 L Hgb 12.4 Hct 36.7 L MCV 94.1 MCH 31.8 MCHC 33.8 RDW 14.2 RDW Differential 47.2 H Plt Count 346 MPV 8.9 Immature Gran % (Auto) 0.000 Neut % (Auto) 63.0 Lymph % (Auto) 27.5 [place] % (Auto) 9.0 Eos % (Auto) 0.3 Baso % (Auto) 0.2 Absolute Neuts (auto) 3.6 Absolute Lymphs (auto) 1.58 Total Counted Not Reportable Sodium 129 L Potassium 5.0 Chloride 93 L Carbon Dioxide 28.0 Anion Gap 8 BUN 11 Creatinine 0.75 Estim Creat Clear Calc 42.49 Est GFR (MDRD) Af Amer 97 Est GFR (MDRD) Non-Af 81 BUN/Creatinine Ratio 14.6 Glucose 120 H Calcium 8.8 Troponin I < 0.015 < 0.015 10/15/18 22:35 WBC RBC Hgb Hct MCV MCH MCHC RDW RDW Differential Plt Count MPV Immature Gran % (Auto) Neut % (Auto) Lymph % (Auto) [place] % (Auto) Eos % (Auto) Baso % (Auto) Absolute Neuts (auto) Absolute Lymphs (auto) Total Counted Sodium Potassium Chloride Carbon Dioxide Anion Gap BUN Creatinine Estim Creat Clear Calc Est GFR (MDRD) Af Amer Est GFR (MDRD) Non-Af BUN/Creatinine Ratio Glucose Calcium Troponin I < 0.015 Discharge Activity: Return to Normal Activity Call your doctor if you observe: Shortness of breath, Dizziness, Fainting spells, Chest pain, Increased palpitations (irregular heartbeat) Home Medications: Medications to take at Discharge Calcium Carb/Vitamin D3/Vit K1 [Citracal Soft Chew] 2 ea PO DAILY 12/08/14 Lorazepam [Ativan] 0.5 mg PO DAILY PRN PRN 12/08/14 Pravastatin [Pravachol] 80 mg PO QHS 12/08/14 Albuterol Inhaler [Ventolin Hfa] 1 - 2 puff INHALATION Q6H PRN PRN #1 inhaler 05/30/17 cranberry fruit concentrate 250 mg chewable tablet 250 mg PO DAILY tab 10/29/17 levocetirizine 5 mg tablet 5 mg PO QHS PRN tab 10/29/17 ranitidine 150 mg tablet 150 mg PO DAILY tab 10/29/17 sucralfate 1 gram tablet 1 gm PO QHS PRN tab 10/29/17 metoprolol succinate ER 50 mg tablet,extended release 24 hr 50 mg PO DAILY #90 tab 05/20/18 Nitroglycerin [Nitrolingual [place]] 0.4 mg SUBLINGUAL PRN PRN 10/15/18 Pantoprazole Sodium 40 mg PO DAILY 10/15/18 Raloxifene HCl [Evista] 60 mg PO DAILY 10/15/18 amlodipine 5 mg tablet 5 mg PO DAILY #90 tab 10/16/18 Primary Care Physician: Malcolm Mariscal MD [Primary Care Provider] - Please follow up with your Primary Care Physician in: 3-5 days Please Follow Up With: Malcolm Hughes MD Disposition: Home Minutes spent on discharge:: 35 Patient Condition:: Stable Medical Necessity - Tobacco Use Smoking Status: Never smoker Meaningful Use Info Meaningful Use Diagnoses (Choose all that apply): None applicable Code Visit OBSV E&M: 80995 Observation care discharge
--- NOTE | 2018-10-16 14:28 | PCA ---
Removed patient's IV line per Elli SWIFT's request. Pt. had moderate bleeding from site. Reinforced with two 2x2 dressings and tape. Pressure was applied by this CARDIOVASCULAR SURGICAL TECH and by the patient.
[2018-10-16] MEDS: amLODIPine 5 MG Tablet PO (14:45)
[2018-10-16] MEDS: Metoprolol(XL)Succ 50 MG Tablet PO (14:46)
[2018-10-16] MEDS: LORazepam 0.5 MG Tablet PO (16:03)
--- NOTE | 2018-10-16 18:12 | PCM.CONS.C ---
Problem List (1) Benign essential HTN Status: Chronic (2) Takotsubo cardiomyopathy Status: Chronic (3) Atherosclerotic heart disease of [place] coronary artery without angina pectoris Status: Chronic Qualifiers: [place] vs. transplanted heart: [place] heart Comment: Nonobstructive CAD per cath 12/11/[address] 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 She states that she noted yesterday she felt, as she has felt on various times in the past, her blood pressure going up. She is monitoring her blood pressure and states based upon her home blood pressure monitor her systolic blood pressure was in excess of 200 mmHg. She did not since the tachycardia that she is sometimes senses with these events. She states she has been having waxing and waning vague head neck and chest discomfort. She has had no evidence of orthopnea or PND or peripheral pitting edema. There has been no near syncope or syncope. Based upon the aforementioned concerns she presented to the emergency department for further evaluation. In the emergency department she was evaluated and based upon her concerns was treated with nitroglycerin sublingual x1. Her blood pressure decreased. She has subsequently had resolution of her symptoms. She had negative troponin levels. Her ECGs demonstrated no acute ECG changes. She was placed in the PCU for observation. Since being in the PCU she has had no recurrent symptoms. She has had overall improvement in her blood pressures. Her troponin I levels remain negative. Her ECG was repeated and continued demonstrates sinus rhythm with no acute changes. She did not require any further diagnostic testing or therapeutic interventions. [] Past Medical History Allergies/Adverse Reactions: Allergies codeine Adverse Reaction (Verified 10/15/18 16:00) HEART RACES indomethacin [From Indocin] Adverse Reaction (Verified 10/15/18 16:00) Abd cramps/diarrhea indomethacin sodium [From Indocin] Adverse Reaction (Verified 10/15/18 16:00) Abd cramps/diarrhea levofloxacin [From Levaquin] Adverse Reaction (Verified 10/15/18 16:00) INCREASED BLOOD PRESSURE nitrofurantoin [From Macrobid] Adverse Reaction (Verified 10/15/18 16:00) Nausea/Vom/Diarrhea propoxyphene napsylate [From Darvocet-N 100] Adverse Reaction (Verified 10/15/18 16:00) PASSES OUT Home Medications: Ambulatory Orders Medication Instructions Recorded Calcium Carb/Vitamin D3/Vit K1 2 ea PO DAILY 12/08/14 [Citracal Soft Chew] Lorazepam [Ativan] 0.5 mg PO DAILY PRN PRN 12/08/14 Pravastatin [Pravachol] 80 mg PO QHS 12/08/14 Albuterol Inhaler [Ventolin Hfa] 1 - 2 puff INHALATION Q6H PRN PRN 05/30/17 #1 inhaler cranberry fruit concentrate 250 mg 250 mg PO DAILY tab 10/29/17 chewable tablet levocetirizine 5 mg tablet 5 mg PO QHS PRN tab 10/29/17 ranitidine 150 mg tablet 150 mg PO DAILY tab 10/29/17 sucralfate 1 gram tablet 1 gm PO QHS PRN tab 10/29/17 metoprolol succinate ER 50 mg 50 mg PO DAILY #90 tab 05/20/18 tablet,extended release 24 hr Nitroglycerin [Nitrolingual [place]] 0.4 mg SUBLINGUAL PRN PRN 10/15/18 Pantoprazole Sodium 40 mg PO DAILY 10/15/18 Raloxifene HCl [Evista] 60 mg PO DAILY 10/15/18 amlodipine 5 mg tablet 5 mg PO DAILY #90 tab 10/16/18 Past Medical History (Chronic Problems): Chronic Problems (Last Reviewed 08/19/18 @ 11:08 by Barbie Sultana) 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 Chris Morse for recurrent pericardial effusion COPD (chronic obstructive pulmonary disease) (Chronic) Hyperlipidemia (Chronic) History of non-ST elevation myocardial infarction (NSTEMI) (Chronic) Takotsubo cardiomyopathy (Chronic) History of left heart catheterization (Chronic) 12/05/2006 @ [facility] per Dr. Hughes; 12/11/[address] Narvaez@ [facility] Atherosclerotic heart disease of [place] coronary artery without angina pectoris (Chronic) Nonobstructive CAD per cath 12/11/[address] Narvaez [facility] Asthma (Chronic) Benign essential HTN (Chronic) Osteoporosis (Chronic) History of coronary vasospasm (Chronic) Tongue cancer (Chronic) 1998 Surgical History: - - Pericardial window, partial tongue resection 1998 for tongue carcinoma, hysterectomy 1991, right neck region lymph node resection 1998, thoracic disc surgery 2012, appendectomy. Psychiatric History: No pertinent psych hx H[employer] CONSULTANT History: No pertinent HUMAN CAPITAL CONSULTANT history - *Family History Maternal Family History: Family History (Last Reviewed 08/19/18 @ 11:08 by Barbie Sultana) Father Myocardial infarction, Onset Age: 35 History Items: Cancer - age 84 Paternal Family History: Family History (Last Reviewed 08/19/18 @ 11:08 by Barbie Sultana) Father Myocardial infarction, Onset Age: 35 History Items: Heart Disease - age 93, Hypertension Offspring Family History: Family History (Last Reviewed 08/19/18 @ 11:08 by Barbie Sultana) Father Myocardial infarction, Onset Age: 35 History Items: - - 4 children and 4 grandchildren in good health Lives: Spouse/ Significant Other Smoking Status: Never smoker Alcohol: None Drugs: None Review of Systems - Review of Systems General: Denies: Fever, Night Sweats, Fatigue Cardiovascular: Reports: Chest Discomfort. Denies: Shortness of Breath, Orthopnea, PND, Peripheral Edema, Palpitations, Lightheadedness, Dizziness, Near Syncope, Syncope Respiratory: Denies: Cough, Sputum Production, Hemoptysis Gastrointestinal: Denies: Hematemesis, Hematochezia, Melena Genitourinary: Denies: Dysuria, Hematuria Neurological: Reports: - - Headache Subjectve: This is a pleasant 72-year-old white female who appears to be resting comfortably in no acute distress. Objective: Vital Signs Temp Pulse Resp BP Pulse Ox 97.5 F L 77 16 144/80 H 99 10/16/18 16:34 10/16/18 16:34 10/16/18 16:34 10/16/18 16:34 10/16/18 16:34 Oxygen Delivery Method Room Air Weight: 115 lb 1.301 oz Body Mass Index (BMI) 19.4 Intake and Output for Last 24 Hours 10/14/18 10/15/18 10/16/18 23:59 23:59 23:59 Intake Total 1147 / 1147 Balance 1147 / 1147 General: Awake, Alert, Oriented x 3, Cooperative, No Acute Distress HEENT: Atraumatic, Normocephalic, PERRL, EOMI, Sclera Non Icteric Oral: Moist Mucosa Neck: Supple, Good ROM, No JVD Lungs: Clear to auscultation Cardiovascular: Regular Rhythm, Normal S1, Normal S2, Positive S4 Vascular: No Carotid Bruits Abdomen: Bowel Sounds Present, Soft, Non Tender Extremities: No Cyanosis, No Clubbing, No edema Neurological: No Focal Motor or Sensory Deficit Psych/Mental Status: Appropriate 10/15/18 19:15: Troponin I < 0.015 10/15/18 22:35: Troponin I < 0.015 Rhythm:Sinus rhythm EKG:Sinus rhythm; no acute ECG changes ECHO:12/10/2015 Interpretation Summary Natural LV sizc. The estimated ejection fraction is 60 %. No regional wall mOtiOn abnomralities noted. No pericardial krishna?unn. Stress Test:01/11/2016 EXERCISE TOLERANCE TEST: The patient exercised on a modified Jeffery protocol for 12 minutes completing stage 4, achieving a peak heart rate of 150 beats per minute, (99% predicted maximum heart rate) and a peak blood pressure of 140/84 mmHg and a peak MET capacity of 7 METS. The baseline ECG demonstrated normal sinus rhythm. The peak exercise ECG demonstrated no obvious ECG changes. There was a rare PVC during exercise. The functional capacity was considered average. The patient had no complaint of chest discomfort during exercise or recovery. The examination was discontinued secondary to dyspnea. IMPRESSION: 1. Technically adequate (percent predicted maximum heart rate greater than 85%), exercise tolerance test. 2. Negative (adequate) ECG exercise tolerance test. 3. Rare PVC during exercise. 4. Nuclear images pending. MYOCARDIAL PERFUSION IMAGING STUDY: TECHNIQUE: The patient was injected with 11.1 mCi of Tc99m Cardiolite and subsequently rest SPECT Cardiolite nuclear imaging was obtained in the horizontal long, vertical long and short axes views. The patient exercised on a modified Jeffery protocol for 12 minutes completing stage 4, achieving a peak heart rate of 150 beats per minute, (99% predicted maximum heart rate) and a peak blood pressure of 140/84 mmHg and a peak MET capacity of approximately 7 METS. The patient was injected with 36.0 mCi of Tc99m Cardiolite and subsequently stress SPECT Cardiolite nuclear imaging was obtained in the horizontal long, vertical long and short axes views. A gated Cardiolite study at peak stress was obtained. INTERPRETATION: Rest and stress SPECT Cardiolite nuclear imaging appear to demonstrate, status post realignment and normalization, areas of extracardiac/hepatic and gastrointestinal tracer uptake near the inferior segments. Otherwise, there appears to be relative uniform tracer uptake and myocardial perfusion appearing within normal limits. There was end systolic thickening and brightening. The gated Cardiolite study demonstrates myocardial thickening and inward wall motion. The reported LVEF is 72%. IMPRESSION: 1. Rest and stress SPECT Cardiolite nuclear imaging demonstrates the appearance of relative uniform tracer uptake and myocardial perfusion appearing within normal limits. 2. The gated Cardiolite study reports an LVEF of 72%. Cardiac Cath:12/11/2015 CONCLUSIONS: 1. Angiographically normal left circumflex and right coronary artery. 2. Nonobstructive disease in the middle portion of the LAD just after diagonal #2. 3. Normal LV function with an EF of 65%. 4. Moderately elevated LVEDP. CXR:Preliminary evaluation: No acute cardiopulmonary disease appreciated: Please see official report Assessment/Plan 1. Hypertension The patient has had recurrent episodes of intermittent elevated heart rates and hypertension. She has not been evaluated extensively noninvasively and invasively from a cardiovascular standpoint and an endocrinology standpoint in the past for a variety of etiologies including various endocrinological etiologies including pheochromocytoma. She has never been officially diagnosed with this disorder. At the present time she had an episode similar to what she has had in the past. She has had no other acute findings or adverse events. At the moment she will continue medical therapy. She was advised she can attempt, when her blood pressure elevated, and take an extra amlodipine 5 mg p.o. x1 in an attempt to bring her blood pressure is under better control. Depending upon her clinical course she may need additional evaluation and care for her hypertension. 2. Takotsubo syndrome The patient has a history of Takotsubo syndrome. She has undergone noninvasive and invasive evaluation for this in the past. Her most recent studies are as noted above. At the present time it does not appear she has had any classic recurrence based upon her clinical course, cardiac enzymes, or ECG. She will continue to be followed. 3. CAD She has had non angiographically significant CAD described in the past. At the moment there is no evidence of acute coronary syndrome based on cardiac enzymes or her ECG tracing. She will continue medical management. She will be considered for outpatient cardiovascular followup including outpatient stress nuclear imaging study to reassess her coronary physiology for any obvious changes that would require further evaluation and care. 4. Hyperlipidemia The patient will continue risk factor evaluation care is deemed appropriate. Thus, overall, the patient appears to be symptomatically improved and hemodynamically stable. She has had no definitive evidence of acute coronary syndrome or adverse cardiovascular events. It was felt the patient could be released home with continued outpatient medical therapy as described above an outpatient cardiovascular follow up. The patient's case has been previously discussed with the patient, Dr. Tinoco of the [facility] emergency department staff, and Dr. Tobias and of the [facility] hospital staff.
--- NOTE | 2018-10-16 18:17 | CON.PCM_ITS ---
Problem List (1) Benign essential HTN Status: Chronic (2) Takotsubo cardiomyopathy Status: Chronic (3) Atherosclerotic heart disease of [place] coronary artery without angina pectoris Status: Chronic Qualifiers: [place] vs. transplanted heart: [place] heart Comment: Nonobstructive CAD per cath 12/11/[address] 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 She states that she noted yesterday she felt, as she has felt on various times in the past, her blood pressure going up. She is monitoring her blood pressure and states based upon her home blood pressure monitor her systolic blood pressure was in excess of 200 mmHg. She did not since the tachycardia that she is sometimes senses with these events. She states she has been having waxing and waning vague head neck and chest discomfort. She has had no evidence of orthopnea or PND or peripheral pitting edema. There has been no near syncope or syncope. Based upon the aforementioned concerns she presented to the emergency department for further evaluation. In the emergency department she was evaluated and based upon her concerns was treated with nitroglycerin sublingual x1. Her blood pressure decreased. She has subsequently had resolution of her symptoms. She had negative troponin levels. Her ECGs demonstrated no acute ECG changes. She was placed in the PCU for observation. Since being in the PCU she has had no recurrent symptoms. She has had overall improvement in her blood pressures. Her troponin I levels remain negative. Her ECG was repeated and continued demonstrates sinus rhythm with no acute changes. She did not require any further diagnostic testing or therapeutic interventions. [] Past Medical History Allergies/Adverse Reactions: Allergies codeine Adverse Reaction (Verified 10/15/18 16:00) HEART RACES indomethacin [From Indocin] Adverse Reaction (Verified 10/15/18 16:00) Abd cramps/diarrhea indomethacin sodium [From Indocin] Adverse Reaction (Verified 10/15/18 16:00) Abd cramps/diarrhea levofloxacin [From Levaquin] Adverse Reaction (Verified 10/15/18 16:00) INCREASED BLOOD PRESSURE nitrofurantoin [From Macrobid] Adverse Reaction (Verified 10/15/18 16:00) Nausea/Vom/Diarrhea propoxyphene napsylate [From Darvocet-N 100] Adverse Reaction (Verified 10/15/18 16:00) PASSES OUT Home Medications: Ambulatory Orders Medication Instructions Recorded Calcium Carb/Vitamin D3/Vit K1 2 ea PO DAILY 12/08/14 [Citracal Soft Chew] Lorazepam [Ativan] 0.5 mg PO DAILY PRN PRN 12/08/14 Pravastatin [Pravachol] 80 mg PO QHS 12/08/14 Albuterol Inhaler [Ventolin Hfa] 1 - 2 puff INHALATION Q6H PRN PRN 05/30/17 #1 inhaler cranberry fruit concentrate 250 mg 250 mg PO DAILY tab 10/29/17 chewable tablet levocetirizine 5 mg tablet 5 mg PO QHS PRN tab 10/29/17 ranitidine 150 mg tablet 150 mg PO DAILY tab 10/29/17 sucralfate 1 gram tablet 1 gm PO QHS PRN tab 10/29/17 metoprolol succinate ER 50 mg 50 mg PO DAILY #90 tab 05/20/18 tablet,extended release 24 hr Nitroglycerin [Nitrolingual Anthon] 0.4 mg SUBLINGUAL PRN PRN 10/15/18 Pantoprazole Sodium 40 mg PO DAILY 10/15/18 Raloxifene HCl [Evista] 60 mg PO DAILY 10/15/18 amlodipine 5 mg tablet 5 mg PO DAILY #90 tab 10/16/18 Past Medical History (Chronic Problems): Chronic Problems (Last Reviewed 08/19/18 @ 11:08 by Barbie Sultana) 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 Chris Morse for recurrent pericardial effusion COPD (chronic obstructive pulmonary disease) (Chronic) Hyperlipidemia (Chronic) History of non-ST elevation myocardial infarction (NSTEMI) (Chronic) Takotsubo cardiomyopathy (Chronic) History of left heart catheterization (Chronic) 12/05/2006 @ [facility] per Dr. Hughes; 12/11/[address] Narvaez@ [facility] Atherosclerotic heart disease of [place] coronary artery without angina pectoris (Chronic) Nonobstructive CAD per cath 12/11/[address] Narvaez [facility] Asthma (Chronic) Benign essential HTN (Chronic) Osteoporosis (Chronic) History of coronary vasospasm (Chronic) Tongue cancer (Chronic) 1998 Surgical History: - - Pericardial window, partial tongue resection 1998 for tongue carcinoma, hysterectomy 1991, right neck region lymph node resection 1998, thoracic disc surgery 2012, appendectomy. 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 MEDICAL TECHNICIAN history - *Family History Maternal Family History: Family History (Last Reviewed 08/19/18 @ 11:08 by Barbie Sultana) Father Myocardial infarction, Onset Age: 35 History Items: Cancer - age 84 Paternal Family History: Family History (Last Reviewed 08/19/18 @ 11:08 by Barbie Sultana) Father Myocardial infarction, Onset Age: 35 History Items: Heart Disease - age 93, Hypertension Offspring Family History: Family History (Last Reviewed 08/19/18 @ 11:08 by Barbie Sultana) Father Myocardial infarction, Onset Age: 35 History Items: - - 4 children and 4 grandchildren in good health Lives: Spouse/ Significant Other Smoking Status: Never smoker Alcohol: None Drugs: None Review of Systems - Review of Systems General: Denies: Fever, Night Sweats, Fatigue Cardiovascular: Reports: Chest Discomfort. Denies: Shortness of Breath, Orthopnea, PND, Peripheral Edema, Palpitations, Lightheadedness, Dizziness, Near Syncope, Syncope Respiratory: Denies: Cough, Sputum Production, Hemoptysis Gastrointestinal: Denies: Hematemesis, Hematochezia, Melena Genitourinary: Denies: Dysuria, Hematuria Neurological: Reports: - - Headache Subjectve: This is a pleasant 72-year-old white female who appears to be resting comfortably in no acute distress. Objective: Vital Signs Temp Pulse Resp BP Pulse Ox 97.5 F L 77 16 144/80 H 99 10/16/18 16:34 10/16/18 16:34 10/16/18 16:34 10/16/18 16:34 10/16/18 16:34 Oxygen Delivery Method Room Air Weight: 115 lb 1.301 oz Body Mass Index (BMI) 19.4 Intake and Output for Last 24 Hours 10/14/18 10/15/18 10/16/18 23:59 23:59 23:59 Intake Total 1147 / 1147 Balance 1147 / 1147 General: Awake, Alert, Oriented x 3, Cooperative, No Acute Distress HEENT: Atraumatic, Normocephalic, PERRL, EOMI, Sclera Non Icteric Oral: Moist Mucosa Neck: Supple, Good ROM, No JVD Lungs: Clear to auscultation Cardiovascular: Regular Rhythm, Normal S1, Normal S2, Positive S4 Vascular: No Carotid Bruits Abdomen: Bowel Sounds Present, Soft, Non Tender Extremities: No Cyanosis, No Clubbing, No edema Neurological: No Focal Motor or Sensory Deficit Psych/Mental Status: Appropriate 10/15/18 19:15: Troponin I < 0.015 10/15/18 22:35: Troponin I < 0.015 Rhythm:Sinus rhythm EKG:Sinus rhythm; no acute ECG changes ECHO:12/10/2015 Interpretation Summary Natural LV sizc. The estimated ejection fraction is 60 %. No regional wall mOtiOn abnomralities noted. No pericardial krishna?unn. Stress Test:01/11/2016 EXERCISE TOLERANCE TEST: The patient exercised on a modified Jeffery protocol for 12 minutes completing stage 4, achieving a peak heart rate of 150 beats per minute, (99% predicted maximum heart rate) and a peak blood pressure of 140/84 mmHg and a peak MET capacity of 7 METS. The baseline ECG demonstrated normal sinus rhythm. The peak exercise ECG demonstrated no obvious ECG changes. There was a rare PVC during exercise. The functional capacity was considered average. The patient had no complaint of chest discomfort during exercise or recovery. The examination was discontinued secondary to dyspnea. IMPRESSION: 1. Technically adequate (percent predicted maximum heart rate greater than 85%), exercise tolerance test. 2. Negative (adequate) ECG exercise tolerance test. 3. Rare PVC during exercise. 4. Nuclear images pending. MYOCARDIAL PERFUSION IMAGING STUDY: TECHNIQUE: The patient was injected with 11.1 mCi of Tc99m Cardiolite and subsequently rest SPECT Cardiolite nuclear imaging was obtained in the horizontal long, vertical long and short axes views. The patient exercised on a modified Jeffery protocol for 12 minutes completing stage 4, achieving a peak heart rate of 150 beats per minute, (99% predicted maximum heart rate) and a peak blood pressure of 140/84 mmHg and a peak MET capacity of deloris roximately 7 METS. The patient was injected with 36.0 mCi of Tc99m Cardiolite and subsequently stress SPECT Cardiolite nuclear imaging was obtained in the horizontal long, vertical long and short axes views. A gated Cardiolite study at peak stress was obtained. INTERPRETATION: Rest and stress SPECT Cardiolite nuclear imaging appear to demonstrate, status post realignment and normalization, areas of extracardiac/hepatic and gastrointestinal tracer uptake near the inferior segments. Otherwise, there appears to be relative uniform tracer uptake and myocardial perfusion appearing within normal limits. There was end systolic thickening and brightening. The gated Cardiolite study demonstrates myocardial thickening and inward wall motion. The reported LVEF is 72%. IMPRESSION: 1. Rest and stress SPECT Cardiolite nuclear imaging demonstrates the appearance of relative uniform tracer uptake and myocardial perfusion appearing within normal limits. 2. The gated Cardiolite study reports an LVEF of 72%. Cardiac Cath:12/11/2015 CONCLUSIONS: 1. Angiographically normal left circumflex and right coronary artery. 2. Nonobstructive disease in the middle portion of the LAD just after diagonal #2. 3. Normal LV function with an EF of 65%. 4. Moderately elevated LVEDP. CXR:Preliminary evaluation: No acute cardiopulmonary disease appreciated: Please see official report Assessment/Plan 1. Hypertension The patient has had recurrent episodes of intermittent elevated heart rates and hypertension. She has not been evaluated extensively noninvasively and invasively from a cardiovascular standpoint and an endocrinology standpoint in the past for a variety of etiologies including various endocrinological etiologies including pheochromocytoma. She has never been officially diagnosed with this disorder. At the present time she had an episode similar to what she has had in the past. She has had no other acute findings or adverse events. At the moment she will continue medical therapy. She was advised she can attempt, when her blood pressure elevated, and take an extra amlodipine 5 mg p.o. x1 in an attempt to bring her blood pressure is under better control. Depending upon her clinical course she may need additional evaluation and care for her hypertension. 2. Takotsubo syndrome The patient has a history of Takotsubo syndrome. She has undergone noninvasive and invasive evaluation for this in the past. Her most recent studies are as noted above. At the present time it does not appear she has had any classic recurrence based upon her clinical course, cardiac enzymes, or ECG. She will continue to be followed. 3. CAD She has had non angiographically significant CAD described in the past. At the moment there is no evidence of acute coronary syndrome based on cardiac enzymes or her ECG tracing. She will continue medical management. She will be considered for outpatient cardiovascular followup including outpatient stress nuclear imaging study to reassess her coronary physiology for any obvious changes that would require further evaluation and care. 4. Hyperlipidemia The patient will continue risk factor evaluation care is deemed appropriate. Thus, overall, the patient appears to be symptomatically improved and hemodynamically stable. She has had no definitive evidence of acute coronary syndrome or adverse cardiovascular events. It was felt the patient could be released home with continued outpatient medical therapy as described above an outpatient cardiovascular follow up. The patient's case has been previously discussed with the patient, Dr. Tinoco of the [facility] emergency department staff, and Dr. Tobias and of the [facility] hospital staff.
--- OUTSIDE RECORDS SUMMARY | 2018-12-17 23:01 | XMS RPT_ITS ---
:1945 Author Organization OHIP Support Name Relationship Address Phone R Unavailable Unavailable Unavailable IGOR DOMINGUEZ Unavailable [address] + [place] [address] R Unavailable Unavailable Unavailable IGOR DOMINGUEZ Unavailable [address] + [place] [address] R Unavailable Unavailable Unavailable IGOR DOMINGUEZ Unavailable [address] + [place] [address] R Unavailable Unavailable Unavailable IGOR DOMINGUEZ Unavailable [address] + [place] [address] R Unavailable Unavailable Unavailable IGOR DOMINGUEZ Unavailable [address] + [place] [address] R Unavailable Unavailable Unavailable IGOR DOMINGUEZ Unavailable [address] + [place] [address] R Unavailable Unavailable Unavailable IGOR DOMINGUEZ Unavailable [address] + [place] [address] R Unavailable Unavailable Unavailable IGOR DOMINGUEZ Unavailable [address] + [place] [address] R Unavailable Unavailable Unavailable IGOR DOMINGUEZ Unavailable [address] + [place] [address] R Unavailable Unavailable Unavailable IGOR DOMINGUEZ Unavailable [address] + [place] [address] R Unavailable Unavailable Unavailable IGOR DOMINGUEZ Unavailable [address] + [place] [address] R Unavailable Unavailable Unavailable IGOR DMOINGUEZ Unavailable [address] + [place] [address] IGOR DOMINGUEZ Unavailable [address] + [place] [address] ALEXY DOMINGUEZ Unavailable Unavailable Unavailable R Unavailable Unavailable Unavailable ALBERTO IGOR Unavailable [address] + [place] [address] R Unavailable Unavailable Unavailable IGOR DOMINGUEZ Unavailable [address] + [place] [address] R Unavailable Unavailable Unavailable IGOR DOMINGUEZ Unavailable [address] + [place] [address] R Unavailable Unavailable Unavailable IGOR DOMINGUEZ Unavailable [address] + [place] [address] Care Team Providers Name Role Phone ANGELA LIZ Referring Unavailable GUZMANMALCOLM Primary Care Unavailable HARVEY GILES Attending Unavailable Guzman, Malcolm Attending Unavailable Guzman, Malcolm Primary Care Unavailable Guzman, Malcolm Primary Care Unavailable Matthewelfah, Ghasem Admitting Unavailable Moodispaarmando, Malcolm Consulting Unavailable Marco Bond Attending Unavailable 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, Malcolm Attending Unavailable 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, Malcolm Referring Unavailable Guzman, Malcolm Primary Care Unavailable Ashelfah, Ghasem Admitting Unavailable Ashelfah, Ghasem Attending Unavailable Guzman, Malcolm Primary Care Unavailable Ashelfah, Ghasem Consulting Unavailable Ashelfah, Ghasem Admitting Unavailable Marco Bond Attending Unavailable Loida, Malcolm Primary Care Unavailable 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, Malcolm Consulting Unavailable Marco Bond Consulting Unavailable Matthewelfah, Ghasem Admitting Unavailable Moodcarrie, Malcolm Attending Unavailable Loida, Malcolm Primary Care Unavailable Moodcarrie, Malcolm Consulting Unavailable Marco Bond Consulting Unavailable Rubi Gonzales Attending Unavailable 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, Malcolm Attending Unavailable Guzman, Malcolm Referring Unavailable [...] Attending Unavailable Guzman, Malcolm Primary Care Unavailable Moodispaarmando, Malcolm Attending Unavailable 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, Malcolm Referring Unavailable Guzman, Malcolm Primary Care Unavailable Guzman, Malcolm Attending Unavailable Guzman, Malcolm Primary Care Unavailable Moodispaarmando, Malcolm Attending Unavailable Malcolm Guzman Referring Unavailable PROBLEMS PROBLEMS DATE TYPE CONDITION / CODE ATTENDING STATUS SOURCE 05/16/2018 Unknown E78.5 - Malcolm Hughes Active [facility] Hyperlipidemia, Community unspecified / Hospital E78.5(ICD-10) Repository 05/16/2018 Unknown Z79.899 - Other 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 diagnosis unspecified / University M27.9(ICD-10) [facility] Repository 11/27/2017 Unknown R30.0 - Dysuria / Malcolm Guzman Active [facility] R30.0(ICD-10) Repository PROCEDURES PROCEDURES No Procedure Records FoundRESULTS RESULTS CONSULTATION Observed: 10/16/2018 Status: F Source: [facility] 6:25 PM [facility] REPOSITORY [facility] Medical Records Department [address] [place] [address] Consultation 10/16/18 1812 MR#: [id number] Acct: [id number] Name: ALEXY DOMINGUEZ Rep #: [id number] : 1945 72 From: Malcolm Hughes MD PCP: Malcolm Guzman MD Status: DIS MELVINA Y Location: [place] [address] Problem List (1) Benign essential HTN Status: Chronic (2) Takotsubo cardiomyopathy Status: Chronic (3) Atherosclerotic heart disease of [place] coronary artery without angina pectoris Status: Chronic Qualifiers: [place] vs. transplanted heart: [place] heart Comment: Nonobstructive CAD per cath 12/11/[address] 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 She states that she noted yesterday she felt, as she has felt on various times in the past, her blood pressure going up. She is monitoring her blood pressure and states based upon her home blood pressure monitor her systolic blood pressure was in excess of 200 mmHg. She did not since the tachycardia that she is sometimes senses with these events. She states she has been having waxing and waning vague head neck and chest discomfort. She has had no evidence of orthopnea or PND or peripheral pitting edema. There has been no near syncope or syncope. Based upon the aforementioned concerns she presented to the emergency department for further evaluation. In the emergency department she was evaluated and based upon her concerns was treated with nitroglycerin sublingual x1. Her blood pressure decreased. She has subsequently had resolution of her symptoms. She had negative troponin levels. Her ECGs demonstrated no acute ECG changes. She was placed in the PCU for observation. Since being in the PCU she has had no recurrent symptoms. She has had overall improvement in her blood pressures. Her troponin I levels remain negative. Her ECG was repeated and continued demonstrates sinus rhythm with no acute changes. She did not require any further diagnostic testing or therapeutic interventions. [] Past Medical History Allergies/Adverse Reactions: Allergies codeine Adverse Reaction (Verified 10/15/18 16:00) [...] Home Medications: Ambulatory Orders Medication Instructions Recorded Calcium Carb/Vitamin D3/Vit K1 2 ea PO DAILY 12/08/14 Past Medical History (Chronic Problems): Chronic Problems (Last Reviewed 08/19/18 @ 11:08 by Barbie Sultana) 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 Chris Morse for recurrent pericardial effusion COPD (chronic obstructive pulmonary disease) (Chronic) Hyperlipidemia (Chronic) History of non-ST elevation myocardial infarction (NSTEMI) (Chronic) Takotsubo cardiomyopathy (Chronic) History of left heart catheterization (Chronic) 12/05/2006 @ [facility] per Dr. Hughes; 12/11/[address] Narvaez@ [facility] Atherosclerotic heart disease of [place] coronary artery without angina pectoris (Chronic) Nonobstructive CAD per cath 12/11/[address] Narvaez [facility] Asthma (Chronic) Benign essential HTN (Chronic) Osteoporosis (Chronic) History of coronary vasospasm (Chronic) Tongue cancer (Chronic) 1998 Surgical History: - - Pericardial window, partial tongue resection 1998 for tongue carcinoma, hysterectomy 1991, right neck region lymph node resection 1998, thoracic disc surgery 2012, appendectomy. Psychiatric History: No pertinent psych hx RAMP LEAD History: No pertinent RAMP LEAD history - *Family History Maternal Family History: Family [...] children and 4 grandchildren in good health Lives: Spouse/ Significant Other Smoking Status: Never smoker Alcohol: None Drugs: None Review of Systems - Review of Systems General: Denies: Fever, Night Sweats, Fatigue Cardiovascular: Reports: Chest Discomfort. Denies: Shortness of Breath, Orthopnea, PND, Peripheral Edema, Palpitations, Lightheadedness, Dizziness, Near Syncope, Syncope Respiratory: Denies: Cough, Sputum Production, Hemoptysis Gastrointestinal: Denies: Hematemesis, Hematochezia, Melena Genitourinary: Denies: Dysuria, Hematuria Neurological: Reports: - - Headache Subjectve: This is a pleasant 72-year-old white female who appears to be resting comfortably in no acute distress. Objective: Vital Signs Temp Pulse Resp BP Pulse Ox 97.5 F L 77 16 144/80 H 99 10/16/18 16:34 10/16/18 16:34 10/16/18 16:34 10/16/18 16:34 10/16/18 16:34 Oxygen Delivery Method Room Air Weight: 115 lb 1.301 oz Body Mass Index (BMI) 19.4 Intake and Output for Last 24 Hours Intake Total 1147 / 1147 Balance 1147 / 1147 General: Awake, Alert, Oriented x 3, Cooperative, No Acute Distress HEENT: Atraumatic, Normocephalic, PERRL, EOMI, Sclera Non Icteric Oral: Moist Mucosa Neck: Supple, Good ROM, No JVD Lungs: Clear to auscultation Cardiovascular: Regular Rhythm, Normal S1, Normal S2, Positive S4 Vascular: No Carotid Bruits Abdomen: Bowel Sounds Present, Soft, Non Tender Extremities: No Cyanosis, No Clubbing, No edema Neurological: No Focal Motor or Sensory Deficit Psych/Mental Status: Appropriate 10/15/18 19:15: Troponin I < 0.015 10/15/18 22:35: Troponin I < 0.015 Rhythm:Sinus rhythm EKG:Sinus rhythm; no acute ECG changes ECHO:12/10/2015 Interpretation Summary Natural LV sizc. The estimated ejection fraction is 60 %. No regional wall mOtiOn abnomralities noted. No pericardial krishna unn. Stress Test:01/11/2016 EXERCISE TOLERANCE TEST: The patient exercised on a modified Jeffery protocol for 12 minutes completing stage 4, achieving a peak heart rate of 150 beats per minute, (99% predicted maximum heart rate) and a peak blood pressure of 140/84 mmHg and a peak MET capacity of 7 METS. The baseline ECG demonstrated normal sinus rhythm. The peak exercise ECG demonstrated no obvious ECG changes. There was a rare PVC during exercise. The functional capacity was considered average. The patient had no complaint of chest discomfort during exercise or recovery. The examination was discontinued secondary to dyspnea. IMPRESSION: 1. Technically adequate (percent predicted maximum heart rate greater than 85%), exercise tolerance test. 2. Negative (adequate) ECG exercise tolerance test. 3. Rare PVC during exercise. 4. Nuclear images pending. MYOCARDIAL PERFUSION IMAGING STUDY: TECHNIQUE: The patient was injected with 11.1 mCi of Tc99m Cardiolite and subsequently rest SPECT Cardiolite nuclear imaging was obtained in the horizontal long, vertical long and short axes views. The patient exercised on a modified Jeffery protocol for 12 minutes completing stage 4, achieving a peak heart rate of 150 beats per minute, (99% predicted maximum heart rate) and a peak blood pressure of 140/84 mmHg and a peak MET capacity of approximately 7 METS. The patient was injected with 36.0 mCi of Tc99m Cardiolite and subsequently stress SPECT Cardiolite nuclear imaging was obtained in the horizontal long, vertical long and short axes views. A gated Cardiolite study at peak stress was obtained. INTERPRETATION: Rest and stress SPECT Cardiolite nuclear imaging appear to demonstrate, status post realignment and normalization, areas of extracardiac/hepatic and gastrointestinal tracer uptake near the inferior segments. Otherwise, there appears to be relative uniform tracer uptake and myocardial perfusion appearing within normal limits. There was end systolic thickening and brightening. The gated Cardiolite study demonstrates myocardial thickening and inward wall motion. The reported LVEF is 72%. IMPRESSION: 1. Rest and stress SPECT Cardiolite nuclear imaging demonstrates the appearance of relative uniform tracer uptake and myocardial perfusion appearing within normal limits. 2. The gated Cardiolite study reports an LVEF of 72%. Cardiac Cath:12/11/2015 CONCLUSIONS: 1. Angiographically normal left circumflex and right coronary artery. 2. Nonobstructive disease in the middle portion of the LAD just after diagonal #2. 3. Normal LV function with an EF of 65%. 4. Moderately elevated LVEDP. CXR:Preliminary evaluation: No acute cardiopulmonary disease appreciated: Please see official report Assessment/Plan 1. Hypertension The patient has had recurrent episodes of intermittent elevated heart rates and hypertension. She has not been evaluated extensively noninvasively and invasively from a cardiovascular standpoint and an endocrinology standpoint in the past for a variety of etiologies including various endocrinological etiologies including pheochromocytoma. She has never been officially diagnosed with this disorder. At the present time she had an episode similar to what she has had in the past. She has had no other acute findings or adverse events. At the moment she will continue medical therapy. She was advised she can attempt, when her blood pressure elevated, and take an extra amlodipine 5 mg p.o. x1 in an attempt to bring her blood pressure is under better control. Depending upon her clinical course she may need additional evaluation and care for her hypertension. 2. Takotsubo syndrome The patient has a history of Takotsubo syndrome. She has undergone noninvasive and invasive evaluation for this in the past. Her most recent studies are as noted above. At the present time it does not appear she has had any classic recurrence based upon her clinical course, cardiac enzymes, or ECG. She will continue to be followed. 3. CAD She has had non angiographically significant CAD described in the past. At the moment there is no evidence of acute coronary syndrome based on cardiac enzymes or her ECG tracing. She will continue medical management. She will be considered for outpatient cardiovascular followup including outpatient stress nuclear imaging study to reassess her coronary physiology for any obvious changes that would require further evaluation and care. 4. Hyperlipidemia The patient will continue risk factor evaluation care is deemed appropriate. Thus, overall, the patient appears to be symptomatically improved and hemodynamically stable. She has had no definitive evidence of acute coronary syndrome or adverse cardiovascular events. It was felt the patient could be released home with continued outpatient medical therapy as described above an outpatient cardiovascular follow up. The patient's case has been previously discussed with the patient, Dr. Tinoco of the [facility] emergency department staff, and Dr. Tobias and of the [facility] hospital staff. 10/16/18 182 <Electronically signed by Malcolm Hughes MD> Date Malcolm Hughes MD Cosigner Signature (if applicable): Date CC: Malcolm Hughes MD; Malcolm Guzman MD Signed EMERGENCY DEPARTMENT Observed: 10/16/2018 Status: F Source: [place] SUMMARY 2:45 PM [facility] REPOSITORY [facility] Medical Records Department [address] [place] [address] Emergency Department Summary 10/15/18 1736 MR#: [id number] Acct: [id number] Name: ALEXY DOMINGUEZ Rep #: [id number] : 1945 72 From: Susy Tinoco MD PCP: Malcolm Guzman MD Status: ADM MELVINA - ER Visit Summary Date of Service: 10/15/18 Chief Complaint: Chest pain History of Present Illness: The patient is a 72 F with intermittent chest pain for the past 2 weeks. Today's episode started approximate hour and a half prior to arrival. She describes substernal chest tightness that radiates up into her neck and her jaw. She does report shortness of breath. Pain was improved with nitroglycerin with EMS. Past history significant for coronary disease, MT, asthma, COPD. She had Takotsubo in the past and he has had a pericardial window. She states her last heart cath in a couple years ago showed a 30% lesion in the LAD. Physical Examination: Blood pressure is 162/98, otherwise vitals normal. Patient sitting upright in bed no acute distress. Head neck examination normal. Heart is regular rate and rhythm. Lungs sounds are clear. Abdomen is soft nontender. Lower external examination was no calf tenderness or edema. Test Results: EKG is sinus at 98 with no sign of acute ischemia. Portable chest x-ray shows mild cardiomegaly with hyperexpansion. No acute findings noted. CBC is unremarkable. Chemistry studies reveal a sodium of 129 which is chronic and unchanged from her baseline. Troponin is less than 0.015. Emergency Department Course and Treatment: Patient was given aspirin with EMS along with one sublingual nitro. She was given 1 additional sublingual nitro here. At this time patient is resting comfortably and reports very minimal chest discomfort. Patient does note that she was able to get on the treadmill and walk this morning and had no problems. I spoke with her branch controller, Dr. Hughes. He is familiar with this patient and she has had multiple episodes of similar chest pain. He recommended admitting for cycling of cardiac enzymes if her labs were negative here. She may or may not need a stress test tomorrow. Treatment Plan: [] Disposition: Admit Impression: Chest pain This note was generated with [employer] dictation software. It may contain incorrect words, spelling, and punctuation that were not noted in review of the chart prior to signing ED Disposition - Plan for ED Patient: Chief Complaint: Chest Pain Referrals: Malcolm Guzman MD [Primary Care Provider] - What to do if you have Problems For any increased pain, shortness of breath, bleeding, nausea or vomiting, chest pain, or any unexpected problems, contact your Primary Care Provider. Call [facility] ([phone]) or report to the closest Emergency Room. Call 911 if necessary. 10/16/18 1445 <Electronically signed by Susy Tinoco MD> Date Susy Tinoco MD Cosigner Signature (If Indicated): Date CC: Malcolm Guzman MD DISCHARGE SUMMARY Observed: 10/16/2018 Status: F Source: [place] 1:50 PM [facility] RE[facility]ITORY [facility] Medical Records Department [address] [place] [address] Discharge Summary 10/16/18 1344 MR#: [id number] Acct: [id number] Name: ALEXY DOMINGUEZ Rep #: [id number] : 1945 72 From: Marco Bond MD PCP: Malcolm Guzman MD Status: ADM MELVINA Y Location: [place] [address] Discharge Date and Diagnosis Date of Admission: 10/15/18 Date of Discharge: 10/16/18 - Secondary Discharge Diagnosis Chronic Problems (Last Reviewed 08/19/18 @ 11:08 by Barbie Sultana) 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 hCris Morse for recurrent pericardial effusion COPD (chronic obstructive pulmonary disease) (Chronic) Hyperlipidemia (Chronic) History of non-ST elevation myocardial infarction (NSTEMI) (Chronic) Takotsubo cardiomyopathy (Chronic) History of left heart catheterization (Chronic) 12/05/2006 @ [facility] per Dr. Hughes; 12/11/[address] Narvaez@ [facility] Atherosclerotic heart disease of [place] coronary artery without angina pectoris (Chronic) Nonobstructive CAD per cath 12/11/[address] Narvaez [facility] Asthma (Chronic) Benign essential HTN (Chronic) Osteoporosis (Chronic) History of coronary vasospasm (Chronic) Tongue cancer (Chronic) 1998 Hospital Course and Treatment Imaging Results: CXR: IMPRESSION: Mild cardiomegaly with hyperexpansion. No new or acute finding. Consults: Cardiology Operations: None Procedures: None Summary of Care Provided: Per HPI: The patient is a 72 year old [...] chest pain for evaluation and hypertensive urgency. Hospital Course: 1. Chest pain rule out/HTN/Takotsubo cardiomyopathy/CAD/IOO-82-tpsb-old female who presented with a headache and chest pain today she states that she has been getting his episodes multiple times a week because her blood pressure jumps up into the 200s. She states that she saw endocrinology and was told that she might have an adrenal tumor because some of her enzymes were borderline. Her baseline blood pressures are in the 130s-140s, during her admission her troponins were negative and her EKGs were unremarkable. Cardiology was consulted and they evaluated the patient and felt that they could do a stress test as an outpatient and that she should take an extra Norvasc 5 mg p.o. when she notices that her blood pressure is elevated, otherwise they felt she was stable for discharge home. Will need to follow-up with her primary care doctor as well as cardiology as an outpatient. This was discussed with the patient, she understood the plan and was okay with being discharged home. 2. Her other medical diagnoses were evaluated and her home medications were continued where appropriate - Physical Exam Vital Signs Temp Pulse Resp BP Pulse Ox 97.1 F L 88 16 137/75 H 98 10/16/18 09:45 10/16/18 11:00 10/16/18 09:45 10/16/18 09:45 10/16/18 09:45 Oxygen Delivery Method Room Air Weight: 115 lb 1.301 oz Body Mass Index (BMI) 19.4 Intake and Output for Last 24 Hours Intake Total 1147 / 1147 Balance 1147 / 1147 Laboratory Tests Past 24 Hrs WBC RBC Hgb Hct MCV MCH MCHC RDW RDW Differential Plt Count MPV Immature Gran % (Auto) Discharge Activity: Return to Normal Activity Call your doctor if you observe: Shortness of breath, Dizziness, Fainting spells, Chest pain, Increased palpitations (irregular heartbeat) Home Medications: Medications to take at Discharge Calcium Carb/Vitamin D3/Vit K1 [Citracal Soft Chew] 2 ea PO DAILY 12/08/14 Lorazepam [Ativan] 0.5 mg PO DAILY PRN PRN 12/08/14 Pravastatin [Pravachol] 80 mg PO QHS 12/08/14 Albuterol Inhaler [Ventolin Hfa] 1 - 2 puff INHALATION Q6H PRN PRN #1 inhaler 05/30/17 cranberry fruit concentrate 250 mg chewable tablet 250 mg PO DAILY tab 10/29/17 levocetirizine 5 mg tablet 5 mg PO QHS PRN tab 10/29/17 ranitidine 150 mg tablet 150 mg PO DAILY tab 10/29/17 sucralfate 1 gram tablet 1 gm PO QHS PRN tab 10/29/17 metoprolol succinate ER 50 mg tablet,extended release 24 hr 50 mg PO DAILY #90 tab 05/20/18 Nitroglycerin [Nitrolingual [place]] 0.4 mg SUBLINGUAL PRN PRN 10/15/18 Pantoprazole Sodium 40 mg PO DAILY 10/15/18 Raloxifene HCl [Evista] 60 mg PO DAILY 10/15/18 amlodipine 5 mg tablet 5 mg PO DAILY #90 tab 10/16/18 Primary Care Physician: Malcolm Guzman MD [Primary Care Provider] - Please follow up with your Primary Care Physician in: 3-5 days Please Follow Up With: Malcolm Hughes MD Disposition: Home Minutes spent on discharge:: 35 Patient Condition:: Stable Medical Necessity - Tobacco Use Smoking Status: Never smoker Meaningful Use Info Meaningful Use Diagnoses (Choose all that apply): None applicable Code Visit OBSV E AND M: 38790 Observation care discharge 10/16/18 1350 <Electronically signed by Marco Bond MD> Date Marco Bond MD Cosigner Signature (if applicable): Date CC: Marco Bond MD; Malcolm Guzman MD Signed DISCHARGE INSTRUCTION Observed: 10/16/2018 Status: F Source: [place] 1:44 PM [facility] REPOSITORY [facility] Medical Records Department [address] [place] [address] Instructions for Home/Discharge Instructions 10/16/18 1342 MR#: [id number] Acct: [id number] Name: ALEXY DOMINGUEZ Rep #: [id number] : 1945 72 From: Marco Bond MD PCP: Malcolm Guzman MD Status: ADM MELVINA You will use the following diet at home:: Cardiac Your food should be the consistency of: Regular Your liquids should be the consistency of: Regular/Thin Discharge Activity: Return to Normal Activity Call your doctor if you observe: Shortness of breath, Dizziness, Fainting spells, Chest pain, Increased palpitations (irregular heartbeat) Allergies/Adverse Reactions: Allergies codeine Adverse Reaction (Verified 10/15/18 16:00) HEART RACES indomethacin [From Indocin] Adverse Reaction (Verified 10/15/18 16:00) Abd cramps/diarrhea indomethacin sodium [From Indocin] Adverse Reaction (Verified 10/15/18 16:00) Abd cramps/diarrhea levofloxacin [From Levaquin] Adverse Reaction (Verified 10/15/18 16:00) INCREASED BLOOD PRESSURE nitrofurantoin [From Macrobid] Adverse Reaction (Verified 10/15/18 16:00) Nausea/Vom/Diarrhea propoxyphene napsylate [From Darvocet-N 100] Adverse Reaction (Verified 10/15/18 16:00) PASSES OUT Medications to take at Discharge Calcium Carb/Vitamin D3/Vit K1 [Citracal Soft Chew] 2 ea PO DAILY 12/08/14 Lorazepam [Ativan] 0.5 mg PO DAILY PRN PRN 12/08/14 Pravastatin [Pravachol] 80 mg PO QHS 12/08/14 Albuterol Inhaler [Ventolin Hfa] 1 - 2 puff INHALATION Q6H PRN PRN #1 inhaler 05/30/17 cranberry fruit concentrate 250 mg chewable tablet 250 mg PO DAILY tab 10/29/17 levocetirizine 5 mg tablet 5 mg PO QHS PRN tab 10/29/17 ranitidine 150 mg tablet 150 mg PO DAILY tab 10/29/17 sucralfate 1 gram tablet 1 gm PO QHS PRN tab 10/29/17 metoprolol succinate ER 50 mg tablet,extended release 24 hr 50 mg PO DAILY #90 tab 05/20/18 Nitroglycerin [Nitrolingual [place]] 0.4 mg SUBLINGUAL PRN PRN 10/15/18 Pantoprazole Sodium 40 mg PO DAILY 10/15/18 Raloxifene HCl [Evista] 60 mg PO DAILY 10/15/18 amlodipine 5 mg tablet 5 mg PO DAILY #90 tab 10/16/18 Primary Care Physician: Malcolm Guzman MD [Primary Care Provider] - Please follow up with your Primary Care Physician in: 3-5 days Test Results: Test results from this visit will be discussed in further detail at your follow-up appointment, if applicable. Please Follow Up With: Malcolm Hughes MD 10/16/18 7317 <Electronically signed by Marco Bond MD> Date Marco Bond MD CC: Malcolm Hughes MD; Malcolm Guzman MD Signed TROPONIN-I Collected: 10/15/2018 Status: F Source: [place] 10:35 PM [facility] REPOSITORY Order Comment: 'TROP' Serial specimen #1, #2 or #3: 3 TYPE CODE TESTS RESULT OUT OF RANGE REFERENCE UNITS LAB L501.4010 <0.045 ng/mL Normal < 0.015 TROPONIN-I Result Comment: TROPONIN-I EXPECTED VALUES <0.045 Negative 0.045 - 0.590 Consistent with Cardiac Damage > OR = 0.600 Critical Value Not every elevated troponin is indicative of MT. These values should be used with clinical judgement in examining the patient's clinical picture for diagnosis. To establish a diagnosis of MT versus myocardial injury, there must be a demonstrated rise and/or fall in the troponin values, in addition to ischemic symptoms, EKG changes, new regional wall motion abnormality, and/or angiographical evidence. PLEASE NOTE: REFERENCE RANGES EDITED 18 Performed By: #### L501.4010 #### [facility] [address] [place], [address] HISTORY AND PHYSICAL Observed: 10/15/2018 Status: F Source: [place] EXAM 7:15 PM [facility] REPOSITORY [facility] Medical Records Department [address] [place] [address] History and Physical 10/15/18 1903 MR#: [id number] Acct: [id number] Name: ALEXY DOMINGUEZ Rep #: [id number] : 1945 72 From: Nayla Ahuja MD PCP: Malcolm Guzman MD Status: ADM MELVINA Y Location: [place] [address] Problem List (1) History of pericardiectomy Status: Chronic Comment: 03/09/[address] Chris Morse for recurrent pericardial effusion (2) COPD (chronic obstructive pulmonary disease) Status: Chronic (3) Hyperlipidemia Status: Chronic Qualifiers: (4) History of non-ST elevation myocardial infarction (NSTEMI) Status: Chronic (5) Takotsubo cardiomyopathy Status: Chronic (6) Atherosclerotic heart disease of [place] coronary artery without angina pectoris Status: Chronic Qualifiers: Comment: Nonobstructive CAD per cath 12/11/[address] Brice BENAVIDEZH (7) Asthma Status: Chronic (8) Benign essential [...] of left heart catheterization (Chronic) 12/05/2006 @ [facility] per Dr. Hguhes; 12/11/[address] Narvaez@ [facility] Atherosclerotic heart disease of [place] coronary artery without angina pectoris (Chronic) Nonobstructive CAD per cath 12/11/[address] Narvaez [facility] Asthma (Chronic) Benign essential HTN (Chronic) Osteoporosis (Chronic) History of coronary vasospasm (Chronic) Tongue cancer (Chronic) 1998 Medical History: Medical History (Last Reviewed 08/19/18 @ 11:08 by Barbie Sultana) COPD (chronic obstructive pulmonary disease) (Chronic) J44.9 Hyperlipidemia (Chronic) E78.5 History of non-ST elevation myocardial infarction (NSTEMI) (Chronic) I25.2 Takotsubo cardiomyopathy (Chronic) I51.81 Atherosclerotic heart disease of [place] coronary artery without angina pectoris (Chronic) I25.10 Nonobstructive CAD per cath 12/11/[address] Narvaez [facility] Asthma (Chronic) J45.909 Benign essential HTN (Chronic) [...] left heart catheterization (Chronic) Z98.890 12/05/2006 @ [facility] per Dr. Hughes; 12/11/[address] Narvaez@ [facility] History of cataract surgery Z98.49 Rt Surgical History: - - Pericardial window, partial tongue resection 1998 for tongue carcinoma, hysterectomy 1991, right neck region lymph node resection 1998, thoracic disc surgery 2012, appendectomy. Psychiatric History: No pertinent psych hx RAMP LEAD History: No pertinent RAMP LEAD history Lives: Spouse/ Significant Other Smoking Status: [...] Subcu Lovenox. This note was generated with [employer] software. It may contain incorrect words, spelling, and punctuation that were not noted in checking the note before signing. Code Visit OBSV E AND M: 39922 Initial observation care L3 10/15/181914 <Electronically signed by Nayla Ahuja MD> Date Nayla Ahuja MD Cosigner Signature: Date (if applicable) CC: Nayla Ahuja; Malcolm Guzman MD Signed TROPONIN-I Collected: 10/15/2018 Status: F Source: [place] 7:15 PM [facility] REPOSITORY Order Comment: 'TROP' Serial specimen #1, #2 or #3: 2 TYPE CODE TESTS RESULT OUT OF RANGE REFERENCE UNITS LAB L501.4010 <0.045 ng/mL Normal < 0.015 TROPONIN-I Result Comment: TROPONIN-I EXPECTED VALUES <0.045 Negative 0.045 - 0.590 Consistent with Cardiac Damage > OR = 0.600 Critical Value Not every elevated troponin is indicative of MT. These values should be used with clinical judgement in examining the patient's clinical picture for diagnosis. To establish a diagnosis of MT versus myocardial injury, there must be a demonstrated rise and/or fall in the troponin values, in addition to ischemic symptoms, EKG changes, new regional wall motion abnormality, and/or angiographical evidence. PLEASE NOTE: REFERENCE RANGES EDITED 18 Performed By: #### L501.4010 #### [facility] [address] [place], [address] CHEST 1 VIEW Observed: 10/15/2018 Status: F Source: [place] (PORTABLE) 4:22 PM [facility] REPOSITORY [facility] Imaging Services [address] [place] [address] Chest 1 View (Portable) MR#: [id number] Acct: [id number] Name: ALEXY DOMINGUEZ Rep #: [id number] : 1945 F 72 From: Quan Lowe MD PCP: Malcolm Guzman MD Status: PRE ER Study: Chest 1 View (Portable) Date of Exam: 10/15/18 Exam# [id number] Ordering Dr: Susy Tinoco MD STUDY: X-RAY [...] CC: Susy Tinoco MD; Malcolm Guzman MD Brand Ambassador: Signed BASIC METABOLIC Collected: 10/15/2018 Status: F Source: [place] PROFILE (BMP) 4:00 PM [facility] REPOSITORY TYPE CODE TESTS RESULT OUT OF [...] 8 Performed By: #### L500.2500, L501.4010 #### [facility] [address] [place], [address] TROPONIN-I Collected: 10/15/2018 Status: F Source: [place] 4:00 PM [facility] REPOSITORY TYPE CODE TESTS RESULT OUT OF RANGE REFERENCE UNITS LAB L501.4010 <0.045 ng/mL Normal < 0.015 TROPONIN-I Result Comment: TROPONIN-I EXPECTED VALUES <0.045 Negative 0.045 - 0.590 Consistent with Cardiac Damage > OR = 0.600 Critical Value Not every elevated troponin is indicative of MT. These values should be used with clinical judgement in examining the patient's clinical picture for diagnosis. To establish a diagnosis of MT versus myocardial injury, there must be a demonstrated rise and/or fall in the troponin values, in addition to ischemic symptoms, EKG changes, new regional wall motion abnormality, and/or angiographical evidence. PLEASE NOTE: REFERENCE RANGES EDITED 18 Performed By: #### L500.2500, L501.4010 #### [facility] [address] [place], [address] CBC W/DIFF, AUTOMATED Collected: 10/15/2018 Status: F Source: [place] 4:00 PM [facility] REPOSITORY TYPE CODE TESTS RESULT OUT OF [...] Lymph 1.58 Performed By: #### L100.0100 #### [facility] [address] [place], [place], [address] BASIC METABOLIC Collected: 09/03/2018 Status: F Source: [place] PROFILE (BMP) 11:15 AM [facility] REPOSITORY TYPE CODE TESTS RESULT OUT OF [...] GAP 7 Performed By: #### L500.2500 #### [facility] [address] [place], [place], [address] CARDIOLOGY VISIT Observed: 08/19/2018 Status: F Source: [place] REPORT 12:27 PM [facility] REPOSITORY [facility] [address] [place] [address] OFFICE VISIT Date of Service: 08/19/18 MR#: [id number] Acct: [id number] Name: ALEXY DOMINGUEZ Rep #: [id number] : 1945 Provider: Malcolm Hughes MD Age/Sex: 72/F Location: [facility] Status: Signed HPI HPI Details: ALEXY DOMINGUEZ, [...] QDAY #90 tab 07/08/18 [Rx Confirmed 08/19/18] [facility] Medical History COPD (chronic obstructive pulmonary disease) (Chronic) Hyperlipidemia (Chronic) History of non-ST elevation myocardial infarction (NSTEMI) (Chronic) Takotsubo cardiomyopathy (Chronic) Atherosclerotic heart disease of [place] coronary artery without angina pectoris (Chronic) Asthma (Chronic) Benign essential HTN (Chronic) History of coronary vasospasm (Chronic) Surgical History History of pericardiectomy (Chronic) History of left heart catheterization (Chronic) History of cataract surgery (Resolved) Family History Father , age 92, had MT age 35 Myocardial infarction, Onset Age: 35 [...] affect Assessment AND Plan 1. Atherosclerosis of [place] coronary artery of [place] heart without angina pectoris I25.10 Nonobstructive CAD per cath 12/11/[address] Narvaez [facility] Plan At the present time she appears [...] Code Off vis,est,level 3 Diagnoses Atherosclerosis of [place] coronary artery of [place] heart without angina pectoris I25.10 [place] vs. transplanted heart: [place] heart Takotsubo cardiomyopathy I51.81 Hyperlipidemia, unspecified hyperlipidemia type E78.5 Hyperlipidemia type: unspecified Benign essential HTN I10 Coding Level of Care Code Off vis,est,level 3 Diagnoses Atherosclerosis of [place] coronary artery of [place] heart without angina pectoris I25.10 [place] vs. transplanted heart: [place] heart Takotsubo cardiomyopathy I51.81 Hyperlipidemia, unspecified hyperlipidemia type E78.5 Hyperlipidemia type: unspecified Benign essential HTN I10 08/19/18 1227 <Electronically signed by Malcolm Hughes MD> Date Malcolm Hughes MD Cosigner Signature: Date (if applicable) CC: Malcolm Guzman MD BASIC METABOLIC Collected: 07/10/2018 Status: F Source: [place] PROFILE ([facility]) 11:26 AM [facility] REPOSITORY TYPE CODE TESTS RESULT OUT OF [...] GAP 7 Performed By: #### L500.2500 #### [facility] [address] [place], [place], [address] LIVER PROFILE Collected: 05/16/2018 Status: F Source: [place] 11:15 AM [facility] REPOSITORY TYPE CODE TESTS RESULT OUT OF [...] 0.15 Performed By: #### L500.3400, L500.4100 #### [facility] [address] [place], [address] LIPID PROFILE Collected: 05/16/2018 Status: F Source: [place] 11:15 AM [facility] REPOSITORY TYPE CODE TESTS RESULT OUT OF [...] 17 Performed By: #### L500.3400, L500.4100 #### [facility] [address] [place], [address] SCREENING MAMM (CAD), Observed: 04/12/2018 Status: F Source: [place] BILSTUART 10:44 AM [facility] REPOSITORY [facility] Imaging Services [address] [place] [address] SCREENING MAMM (CAD), BILAT MR#: [id number] Acct: [id number] Name: ALEXY DOMINGUEZ Rep #: [id number] : 1945 F 72 From: Klever Law MD PCP: Malcolm Guzman MD Status: REG CLI Study: SCREENING MAMM (CAD), BILAT Date of Exam: 04/12/18 Exam# [id number] Ordering Dr: Malcolm Guzman MD MAMMOGRAPHY - [...] delay biopsy of a clinically suspicious abnormality. [id number] Electronically Signed: Klever Law MD at 13:11 EDT Tel [phone], Service support , CC: Malcolm Guzman MD Brand Ambassador: Signed Observed: 03/28/2018 Status: F Source: [place] CULTURE, URINE 11:07 AM [facility] REPOSITORY Order Date: 03/28/18 Order Info: 630-4 - CUUR Urine Culture ORGANISM 1: Mixed Gram Positive Organisms [place] Count 1000-10,000 MIX CULTURE Mixed contaminants. Submit a new specimen if indicated. Performed By: #### M100.0650 #### [facility] [address] [place], [address] ANKLE MIN 3 VIEWS Observed: 03/08/2018 Status: F Source: [place] 11:22 AM [facility] REPOSITORY [facility] Imaging Services [address] [place] [address] Ankle min 3 Views MR#: [id number] Acct: [id number] Name: ALEXY DOMINGUEZ Rep #: [id number] : 1945 F 72 From: Tobi Velázquez MD PCP: Malcolm Guzman MD Status: REG CLI Study: Ankle min 3 Views Date of Exam: 03/08/18 Exam# [id number] Ordering Dr: Malcolm Guzman MD STUDY: X-RAY [...] Service support , CC: Malcolm Guzman MD Brand Ambassador: Signed Observed: 02/21/2018 Status: F Source: [place] CULTURE, URINE 1:07 PM [facility] REPOSITORY Urine Culture ORGANISM 1: Escherichia coli [place] Count >100,000 Escherichia coli: REACTION Amoxacillin/Clavulanic Acid [...] >=320 R (NF) indicates non-formulary drug at [facility]. Approval by Infectious Disease Specialist required before non-formulary drugs may be ordered and/or dispensed. Performed By: #### M100.0650 #### [facility] [address] [place], [address] Observed: 11/26/2017 Status: F Source: [place] CULTURE, URINE 8:18 PM [facility] REPOSITORY Urine Culture Below infection level. ORGANISM 1: Mixed Gram Pos AND Gram Neg Org [place] Count 1000-10,000 Performed By: #### M100.0650 #### [facility] [address] [place], [address] CARDIOLOGY VISIT Observed: 10/29/2017 Status: F Source: [place] REPORT 12:29 PM [facility] REPOSITORY [facility] 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 At that time there were no acute findings on her chest x-ray. She notes that she had been doing well. She was being treated with corticosteroids for an underlying reactive airway issue. She traveled to [place] on her corticosteroids. She notes her blood pressures were elevated. After returning to [place] she presented back to the [facility] emergency department because of concerns of [...] PO TID tab 10/29/17 [History Confirmed 10/29/17] PFS Medical History COPD (chronic obstructive pulmonary disease) (Chronic) Hyperlipidemia (Chronic) History of non-ST elevation myocardial infarction (NSTEMI) (Chronic) Takotsubo cardiomyopathy (Chronic) Atherosclerotic heart disease of [place] coronary artery without angina pectoris (Chronic) Asthma (Chronic) Benign essential HTN (Chronic) History of coronary vasospasm (Chronic) Surgical History History of pericardiectomy (Chronic) History of left heart catheterization (Chronic) Family History Father , age 92, had MT age 35 Myocardial infarction, Onset Age: 35 [...] a history of a non-ST segment elevation MT based upon her original concerns on presentation. [...] and her cardiovascular condition. 4. Atherosclerosis of [place] coronary artery of [place] heart without angina pectoris I25.10 Nonobstructive CAD per cath 12/11/[address] Narvaez [facility] Plan She does have an element of [...] History of coronary vasospasm Z86.79 Atherosclerosis of [place] coronary artery of [place] heart without angina pectoris I25.10 [place] vs. transplanted heart: [place] heart Hyperlipidemia, unspecified hyperlipidemia type E78.5 Hyperlipidemia type: unspecified Benign essential HTN I10 Coding Level of Care Code Off vis,est,level 3 Diagnoses Takotsubo cardiomyopathy I51.81 History of non-ST elevation myocardial infarction (NSTEMI) I25.2 History of coronary vasospasm Z86.79 Atherosclerosis of [place] coronary artery of [place] heart without angina pectoris I25.10 [place] vs. transplanted heart: [place] heart Hyperlipidemia, unspecified hyperlipidemia type E78.5 Hyperlipidemia type: unspecified Benign essential HTN I10 10/29/17 1229 <Electronically signed by Malcolm Hughes MD> Date Malcolm Hughes MD Cosigner Signature: Date (if applicable) CC: Malcolm Guzman MD LIVER PROFILE Collected: 10/22/2017 Status: F Source: [place] 11:51 AM [facility] REPOSITORY Order Comment: Order Date: 03/23/17 Order Info: 0788-1 - *Hepatic Function Panel Order Info: [id number] - *Lipid Profile CC PCP Comments: 12 [...] BILI 0.10 Performed By: #### L500.3400 #### [facility] [address] [place], [address] LIPID PROFILE Collected: 10/22/2017 Status: F Source: [place] 11:51 AM [facility] REPOSITORY Order Comment: Order Date: 03/23/17 Order Info: 0788-1 - *Hepatic Function Panel Order Info: [id number] - *Lipid Profile CC PCP Comments: 12 [...] VLDL 12 Performed By: #### L500.4100 #### [facility] [address] [place], [address] ALLERGIES ALLERGIES DATE TYPE / CODE NAME / CODE REACTION SEVERITY SOURCE 10/15/2018 Drug propoxyphene PASSES OUT Unknown [place] Allergy/416 napsylate/S2486637 Community 348803([place] [address](RXNORM) [facility] ED CT) Repository 10/15/2018 Drug indomethacin Abd Unknown [place] Allergy/416 sodium/O958940037( cramps/diarrhea Community 948736([facility] ED CT) Repository 10/15/2018 Drug codeine/U567030569 HEART RACES Unknown [place] Allergy/416 (RXNORM) Community 405828([facility] ED CT) Repository 10/15/2018 Drug indomethacin/F0060 Abd Unknown [place] Allergy/416 58758(RXNORM) cramps/diarrhea Community 961663([facility] ED CT) Repository 10/15/2018 Drug nitrofurantoin/F00 Nausea/Vom/Diar Unknown [place] Allergy/030 4047469(RXNORM) chanel Community 646835([facility] ED CT) Repository 10/15/2018 Drug levofloxacin/F0060 INCREASED BLOOD Unknown [place] Allergy/416 91407(RXNORM) PRESSURE Community 114382([facility] ED CT) Repository ENCOUNTERS ENCOUNTERS ADMIT/DISCHARGE ACCOUNT NUMBER ADMITTING ENCOUNTER LOCATION SOURCE CLASS 10/15/2018/10/16/19 [id number] [facility] 19 [place] [facility] ding:PCURoom Repository : [id number]: 1 10/15/2018 [id number] [facility] BMSBuilding: [place] [facility] 10/15/2018 [id number] [place], Ambulatory BMSBuilding: [facility] Repository 10/15/2018 [id number] [place], Ambulatory BMSBuilding: [place] BMS.CF.[facility] Repository 09/03/2018 [id number] Ambulatory [facility] ding:MFPLAB Repository 08/19/2018/08/19/20 [id number] Ambulatory BMSBuilding: [place] 18 BMS.[facility] Repository 07/10/2018 [id number] Ambulatory [facility] ding:MFPLAB Repository 05/16/2018 [id number] Ambulatory [facility] ding:MTLAB Repository 04/12/2018 [id number] Ambulatory [facility] ding:OPBI Repository 03/28/2018 [id number] Ambulatory [facility] ding:LABSPEC Repository 03/08/2018 [id number] Ambulatory [facility] ding:RAD.FUT Repository URE 02/21/2018 [id number] Ambulatory [facility] ding:MTLAB Repository 02/14/2018 [id number] Ambulatory Building:CT5 [facility] Repository 11/26/2017 [id number] Ambulatory [facility] ding:LABSPEC Repository 10/29/2017/10/29/19 [id number] Ambulatory BMSBuilding: [place] 18 BMS.[facility] Repository 10/26/2017 [id number] Ambulatory BMSBuilding: [place] BMS.[facility] Repository 10/22/2017 [id number] Ambulatory [facility] ding:MTLAB Repository PAYERS PAYERS ENCOUNTER GUARANTOR PAYER SUBSCRIBER SOURCE 10/15/2018 ALEXY E Primary ALEXY E [place] [id number] CR Insurance:MEDICARE ZAMMERTDOB: [address] [id number] [address]Wvf: Number: Repository [id number] (HP) Date:2018-10-15 10/15/2018 Secondary IGOR N [place] Insurance:S ZAMMERTDOB: [place] [id number] Hospital Number: Repository [id number] Date:7702-71-93[address] [address]VU: 10/15/2018 Tertiary NOT GIVENUNK [place] Insurance:SELF PAY [facility] Number: Effective Repository Date:2018-10-15 10/15/2018 ALEXY E Primary ALEXY E [place] [id number] CR Insurance:MEDICARE ZAMMERTDOB: [address] [id number] [address]Tel: Number: Repository [id number] (HP) Date:2018-10-15 10/15/2018 Secondary IGOR N [place] Insurance:S ZAMMERTDOB: [facility] [id number] Hospital Number: Repository [id number] Date:1339-21-49CK [address] [address]JB: 10/15/2018 Tertiary NOT GIVENUNK [place] Insurance:SELF PAY [facility] Number: Effective Repository Date:2018-10-15 10/15/2018 ALEXY E Primary ALEXY E [place] [id number] CR Insurance:MEDICARE ZAMMERTDOB: [address] [id number] [address]Wht: Number: Repository [id number] (HP) Date:2018-10-15 10/15/2018 Secondary IGOR N [place] Insurance:WPS ZAMMERTDOB: [facility] [id number] Hospital Number: Repository [id number] Date:5041-52-88OB [address] [address]TG: 10/15/2018 Tertiary NOT GIVENUNK [place] Insurance:SELF PAY [facility] Number: Effective Repository Date:2018-10-15 10/15/2018 ALEXY E Primary ALEXY E [place] [id number] CR Insurance:MEDICARE ZAMMERTDOB: [address] [facility] [id number] [address]Mxf: Number: Repository [id number] () Date:2018-10-15 10/15/2018 Secondary IGOR N [place] Insurance:S ZAMMERTDOB: [facility] [id number] Hospital Number: Repository [id number] Date:9486-83-17FU [address], [place] [address]DR: 10/15/2018 Tertiary NOT GIVENUNK Meme Insurance:SELF PAY [facility] Number: Effective Repository Date:2018-10-15 09/03/2018 ALEXY E Primary ALEXY E Meme [id number] CR Insurance:MEDICARE ZAMMERTDOB: [address] PART A [facility] [id number] [address]Auw: Number: Repository [id number] () Date:2018-09-03 09/03/2018 Secondary IGOR N [place] Insurance:[facility] ZAMMERTDOB: [facility] [id number] Hospital Number: Repository [id number] Date:8977-55-90[address] [address]NF: 09/03/2018 Tertiary NOT GIVENUNK [place] Insurance:SELF PAY [facility] Number: Effective Repository Date:2018-09-03 08/19/2018 ALEXY E Primary ALEXY E [place] [id number] CR Insurance:MEDICARE ZAMMERTDOB: [address] A [facility] [id number] Behavioral Health Services [address]Pnt: Number: Repository [id number] (HP) Date:2017-10-29 08/19/2018 Secondary IGOR N [place] Insurance:WPS ZAMMERTDOB: [facility] [id number] Hospital Number: Repository [id number] Date:1850-13-86[address], [place] [address]PR: 08/19/2018 Tertiary NOT GIVENUNK Meme Insurance:SELF PAY [facility] Number: Effective Repository Date:2018-08-19 07/10/2018 ALEXY E Primary ALEXY E [place] [id number] CR Insurance:MEDICARE ZAMMERTDOB: [address] A [facility] [id number] Behavioral Health Services [address]Knb: Number: Repository [id number] (HP) Date:2018-07-10 07/10/2018 Secondary IGOR N [place] Insurance:WPS ZAMMERTDOB: [facility] [id number] Hospital Number: Repository [id number] Date:4506-65-49[address], [place] [address]YK: 07/10/2018 Tertiary NOT GIVENUNK Meme Insurance:SELF PAY [facility] Number: Effective Repository Date:2018-07-10 05/16/2018 ALEXY E Primary ALEXY E Meme [id number] CR Insurance:MEDICARE ZAMMERTDOB: [address] A [facility] [id number] Behavioral Health Services [address]Tya: Number: Repository [id number] (HP) Date:2018-05-16 05/16/2018 Secondary IGOR N [place] Insurance:WPS ZAMMERTDOB: [facility] [id number] Hospital Number: Repository [id number] Date:7048-86-28[address], [place] [address]EW: 05/16/2018 Tertiary NOT GIVENUNK Meme Insurance:SELF PAY [facility] Number: Effective Repository Date:2018-05-16 04/12/2018 ALEXY E Primary ALEXY E [place] [id number] CR Insurance:MEDICARE ZAMMERTDOB: [address] [id number] Behavioral Health Services [address]Nav: Number: Repository [id number] (HP) Date:2018-04-01 04/12/2018 Secondary IGOR N Meme Insurance:WPS ZAMMERTDOB: [place] [id number] Hospital Number: Repository [id number] Date:8915-52-52UQ [address], [place] [address]MM: 04/12/2018 Tertiary NOT GIVENUNK [place] Insurance:SELF PAY [facility] Number: Effective Repository Date:2018-04-01 03/28/2018 ALEXY E Primary ALEXY E Meme [id number] CR Insurance:MEDICARE ZAMMERTDOB: [address] [id number] Behavioral Health Services [address]Fwp: Number: Repository [id number] (HP) Date:2018-03-28 03/28/2018 Secondary IGOR N [place] Insurance:WPS ZAMMERTDOB: [facility] [id number] Hospital Number: Repository [id number] Date:8529-70-29JW [address], [place] [address]AA: 03/28/2018 Tertiary NOT GIVENUNK Meme Insurance:SELF PAY [facility] Number: Effective Repository Date:2018-03-28 03/08/2018 ALEXY E Primary ALEXY E Meme [id number] CR Insurance:MEDICARE ZAMMERTDOB: [address] PART A [facility] [id number] Behavioral Health Services [address]Udi: Number: Repository [id number] (HP) Date:2018-03-08 03/08/2018 Secondary IGOR N [place] [facility] [id number] Hospital Number: Repository [id number] Date:2184-49-82QG [address], [place] [address]QU: 03/08/2018 Tertiary NOT GIVENUNK Meme Insurance:SELF PAY [facility] Number: Effective Repository Date:2018-03-08 02/21/2018 ALEXY E Primary ALEXY E [place] [id number] CR Insurance:MEDICARE ZAMMERTDOB: [address] A [facility] [id number] Behavioral Health Services [address]Zgy: Number: Repository [id number] (HP) Date:2018-02-21 02/21/2018 Secondary IGOR N [place] [facility] [id number] Hospital Number: Repository [id number] Date:1522-46-18KN [address], [place] [address]OS: 02/21/2018 Tertiary NOT GIVENUNK Meme Insurance:SELF PAY [facility] Number: Effective Repository Date:2018-02-21 02/14/2018 ALEXY Primary ALEXY [facility] ZAMMERTDOB: Insurance:MEDICARE A ZAMMERTDOB: [place] [facility] Number: [id number] [facility] [id number] [address], Date:1796-48-10[address], Repository [place] [address]Kxt: Name:[facility] [id number]: (HP) (HP) 02/14/[address] Secondary [address] [facility] Insurance: FOR ZAMMERTDOB: [facility] Number: [id number] [facility] [id number] [facility] Date:5119-52-76Fv[address], Repository Name:[facility] [id number]: (HP) 11/26/2017 ALEXY E Primary ALEXY E Meme [id number] CR Insurance:MEDICARE ZAMMERTDOB: [address] [id number] Behavioral Health Services [address]Hmr: Number: Repository [id number] () Date:2017-11-26 11/26/2017 Secondary Igor [place] Meme Insurance:WPS ZammertDOB: [facility] [id number] Hospital Number: Repository [id number] Date:4336-87-76JX [address] [place] [address]FG: 11/26/2017 Tertiary NOT GIVENUNK Meme Insurance:SELF PAY [facility] Number: Effective Repository Date:2017-11-26 10/29/2017 ALEXY E Primary ALEXY E Meme [id number] CR Insurance:MEDICARE ZAMMERTDOB: [address] [id number] Behavioral Health Services [address]Foq: Number: Repository [id number] () Date:2017-09-01 10/29/2017 Secondary Igor [place] Meme Insurance:WPS ZammertDOB: [facility] [id number] Hospital Number: Repository [id number] Date:9021-03-69VT [address] [address]AD: 10/29/2017 Tertiary NOT GIVENUNK Meme Insurance:SELF PAY [facility] Number: Effective Repository Date:2017-09-01 10/26/2017 Igor N Primary ALEXY E Meme [id number] CR Insurance:MEDICARE ZAMMERTDOB: Community [address] [place] [address] PART A [facility] [id number] Behavioral Health Services [address]Rxi: Number: Repository [id number] (HP) Date:2017-10-26 10/26/2017 Secondary Igor [place] Meme Insurance:WPS ZammertDOB: [facility] FOR [facility] [id number] Hospital Number: Repository [id number] Date:7026-91-42[address], [place] [address]JE: 10/26/2017 Tertiary NOT GIVENUNK [place] Insurance:SELF PAY [facility] Number: Effective Repository Date:2017-10-26 10/22/2017 Igor [place] Primary ALEXY E Meme [id number] CR Insurance:MEDICARE ZAMMERTDOB: [address] PART A [facility] [id number] Behavioral Health Services [address]Lez: Number: Repository [id number] (HP) Date:2017-10-22 10/22/2017 Secondary Igor [place] Meme Insurance:WPS ZammertDOB: [facility] FOR [facility] [id number] Hospital Number: Repository [id number] Date:0638-96-47LK [address], [place] [address]YU: 10/22/2017 Tertiary NOT GIVENUNK [place] Insurance:SELF PAY [facility] Number: Effective Repository Date:2017-10-22
== END 2018-10-16 13:43 | disposition home or self-care (01) ==
LOC: ED 16:43 → PCU 18:10
PROVIDERS: Admitting Provider Hospitalist; Emergency Provider Emergency Medicine; Family Provider Family Medicine; PCP Family Medicine; Visit Provider Family Medicine
DX: R07.89 Other chest pain (principal); I25.2 Old myocardial infarction; J44.9 Chronic obstructive pulmonary disease, unspecified; R06.02 Shortness of breath; Z79.899 Other long term (current) drug therapy; E78.5 Hyperlipidemia, unspecified; I51.81 Takotsubo syndrome; I25.10 Atherosclerotic heart disease of native coronary artery without angina pectoris; I10 Essential (primary) hypertension; I16.0 Hypertensive urgency; E87.1 Hypo-osmolality and hyponatremia
CPT/HCPCS: 36415; 71045; 80048; 84484; 85025; 93005; 96360; 96361; 99218; 99285; J7030; G0378

== ENCOUNTER → 2018-10-22 06:08 | Outpatient (CLI) | payer MEDICARE, OTHER, SELFPAY ==
[2018-10-15 18:27] VITALS: BMI 19.4
--- NOTE | 2018-10-22 12:21 | STRESSREP ---
Stress Test Report Date: 10/22/2018 Procedure: Exercise tolerance test/imaging study Indications: Chest pain Consent: Per the patient Procedure: The patient exercised on a Jeffery protocol for 6 minutes completing Stage I achieving a peak heart rate of 150 bpm (100 % predicted maximal heart rate) with a peak blood pressure 172/84 mmHg and a peak MET capacity of 7 METs. The baseline ECG demonstrated normal sinus rhythm . The peak exercise ECG demonstrated no obvious ECG changes . There were no cardiac dysrhythmias pretest, during exercise, or recovery. The functional capacity was considered good . There was no complaint of chest discomfort during exercise or recovery. The examination was discontinued secondary to dyspnea . Impression: 1. Technically adequate (percent predicted maximal heart rate greater than 85%) exercise tolerance test 2. Peak exercise ECG with no obvious ECG changes 3. There were no cardiac dysrhythmias pretest, during exercise, or recovery 4. Nuclear images pending Myocardial perfusion imaging study: Technique: The patient was injected with 11.2 mCi of technetium 99m Cardiolite and subsequently rest SPECT Cardiolite nuclear imaging was obtained in the horizontal long, vertical long, and short axis views. The patient exercised on a Jeffery protocol for 6 minutes completing Stage 1 achieving a peak heart rate of 150 bpm (100 % predicted maximal heart rate) with a peak blood pressure 172/84 mmHg and a peak MET capacity of 7 METs. The patient was injected with 32.6 mCi of technetium 99m Cardiolite and subsequently stress SPECT Cardiolite nuclear imaging was obtained in the horizontal long, vertical long, and short axis views. A gated Cardiolite study at peak stress was obtained. Interpretation: Rest and stress SPECT Cardiolite nuclear imaging status post realignment, normalization, and attenuation correction, demonstrates the appearance of relative uniform tracer uptake and myocardial perfusion appearing within normal limits. There is end systolic thickening and brightening. The gated Cardiolite study demonstrates myocardial thickening and inward wall motion. The reported LVEF is 82 %. Impression: 1. Rest and stress SPECT Cardiolite nuclear imaging demonstrate relative uniform tracer uptake and myocardial perfusion appearing within normal limits. 2. The gated Cardiolite study reports an LVEF of 82 %. This note was generated with Critique^Itation software. It may contain incorrect words, spelling, and punctuation that were not noted in checking the note before signing.
== END ==
PROVIDERS: Family Provider Family Medicine; PCP Family Medicine; Referring Provider Internal Medicine Cardiovascular Disease; Visit Provider Internal Medicine Cardiovascular Disease
DX: I25.10 Atherosclerotic heart disease of native coronary artery without angina pectoris (principal); R07.9 Chest pain, unspecified; I25.2 Old myocardial infarction
CPT/HCPCS: 78452; 93017; A9500; A4216

== ENCOUNTER → 2019-02-14 | Outpatient (CLI) | payer MEDICARE, OTHER, SELFPAY ==
[2018-10-15 18:27] VITALS: BMI 19.4
[2019-02-14 13:09] LABS: Anion Gap 8 (5-15); BUN 16 mg/dL (7-18); BUN/Creat Ratio 18.8 RATIO (10-20); Calcium,Total 8.8 mg/dL (8.5-10.1); Chloride 95 mmol/L (98-107); Cholesterol 193 mg/dL (200); Creatinine, Serum 0.85 mg/dL (0.55-1.02); EST Glomerular Filtration Rate 70 mL/min (>60); Est Glom Filt Rate - Afr Amer 84 mL/min (>60); Glucose 100 mg/dL (74-106); High Density Lipoprotein 87 mg/dL; Potassium 4.3 mmol/L (3.5-5.1); Sodium Level 132 mmol/L (136-145); Triglycerides 67 mg/dL; Very Low Density Lipoprotein 13 mg/dL (5-40)
== END | disposition home or self-care (01) ==
LOC: MFPLAB 11:00
PROVIDERS: Family Provider Family Medicine; PCP Family Medicine; Referring Provider Family Medicine; Visit Provider Family Medicine
DX: I10 Essential (primary) hypertension (principal)
CPT/HCPCS: 36415; 80048; 80061

== ENCOUNTER → 2019-03-18 | Outpatient (CLI) | payer MEDICARE, OTHER, SELFPAY ==
[2019-03-05 14:55] VITALS: BMI 19.4
--- NOTE | 2019-03-18 12:43 | CDU_ITS ---
Reason For Study: Bruit Rt. Velocities/BP Lt. Velocities/BP Prox CCA 79.9/13.4 cm/sec. Prox CCA 82.6/18.8 cm/sec. Mid CCA 76/18.6 cm/sec. Mid CCA 80.2/18.8 cm/sec. Dist CCA 57.8/14.7 cm/sec. Dist CCA 66.7/21.2 cm/sec. Prox ICA 60.8/14.6 cm/sec. Prox ICA 70.4/90 cm/sec. Mid ICA 87.9/28.6 cm/sec. Mid ICA 82.7/26.7 cm/sec. Dist ICA 83.8/28.2 cm/sec. Dist ICA 92.5/32.3 cm/sec. Rt. ICA/CCA = 1.2. Lt. ICA/CCA = 1.2. Prox ECA 57.5/9.1 cm/sec. Prox ECA 69.1/9 cm/sec. Rt. Vert. 55.6/17.6 cm/sec. Lt. Vert. 48.3/13.9 cm/sec. Right Extracranial There is homogeneous, smooth atherosclerotic plaque noted in the right common carotid artery. There is heterogeneous, irregular atherosclerotic plaque noted in the right internal carotid artery. There is intimal thickening but no significant atherosclerotic plaque noted in the right external carotid artery. Antegrade flow is noted in the right vertebral artery. Left Extracranial There is homogeneous, smooth atherosclerotic plaque noted in the left common carotid artery. There is homogeneous, smooth atherosclerotic plaque noted in the left internal carotid artery. There is intimal thickening but no significant atherosclerotic plaque noted in the left external carotid artery. Antegrade flow is noted in the left vertebral artery. Procedure Carotid Duplex 99710. Exam performed in department. Interpretation Summary Mild (<50%) stenosis right extracranial internal carotid. Mild (<50%) stenosis left extracranial internal carotid. Flow within the vertebral arteries is antegrade bilaterally. Ordering Physician: Malcolm Hughes Referring Physician: Malcolm Mariscal Performed By: Shannon Baker RVT
== END | disposition home or self-care (01) ==
PROVIDERS: Family Provider Family Medicine; PCP Family Medicine; Referring Provider Internal Medicine Cardiovascular Disease; Visit Provider Internal Medicine Cardiovascular Disease
DX: R09.89 Other specified symptoms and signs involving the circulatory and respiratory systems (principal)
CPT/HCPCS: 93880

== ENCOUNTER → 2019-07-11 11:20 | Outpatient (CLI) | payer MEDICARE, OTHER, SELFPAY ==
[2019-03-05 14:55] VITALS: BMI 19.4
[2019-07-11 13:06] LABS: Absolute Lymphocyte Count 1.15 X10^3/uL (0.83-4.51); Absolute Neutrophil Count 2.2 X10^3/uL (2.0-7.7); Basophil# 0.03 X10^3/uL; Basophil% 0.8 % (0-1); Eosinophil# 0.02 X10^3/uL; Eosinophils% 0.5 % (0-5); Hematocrit 33.7 % (37-47); Lymphocyte # 1.15 X10^3/ul (4.0); Lymphocyte % 29.9 % (19-41); Mean Corp Hgb Conc 35.6 g/dL (32-36); Mean Corpuscular Hgb 33.6 pg (27.0-32.0); Mean Corpuscular Volume 94.4 fL (81-99); Mean Platelet Vol. 8.7 fl (6.2-12.0); Monocyte# 0.42 X10^3/uL; Monocyte% 10.9 % (0-10); NRBC Flagged by Analyzer 0 % (0-5); Neutrophil # 2.22 X10^3/uL (2.7-7.7); Neutrophil % 57.6 % (47-70); Platelet Count 319 K/mm3 (150-450); RBC Distribution Width CV 13.9 % (11.6-14.6); RBC Distribution Width SD 46.7 fl (35.1-43.9); Red Blood Count 3.57 M/mm3 (4.2-5.4); White Blood Count 3.9 K/mm3 (4.4-11.0)
[2019-07-11 13:23] LABS: Anion Gap 5 (5-15); BUN 16 mg/dL (7-18); BUN/Creat Ratio 19.3 RATIO (10-20); Calcium,Total 8.8 mg/dL (8.5-10.1); Chloride 95 mmol/L (98-107); Cholesterol 192 mg/dL (200); Creatinine, Serum 0.83 mg/dL (0.55-1.02); EST Glomerular Filtration Rate 72 mL/min (>60); Est Glom Filt Rate - Afr Amer 87 mL/min (>60); Glucose 102 mg/dL (74-106); High Density Lipoprotein 90 mg/dL; Potassium 4.3 mmol/L (3.5-5.1); Sodium Level 129 mmol/L (136-145); Thyroid Stim Hormone (TSH) 1.74 uIU/mL (0.358-3.74); Triglycerides 65 mg/dL; Very Low Density Lipoprotein 13 mg/dL (5-40)
== END ==
PROVIDERS: Family Provider Family Medicine; PCP Family Medicine; Referring Provider Family Medicine; Visit Provider Family Medicine
DX: I10 Essential (primary) hypertension (principal); R53.83 Other fatigue
CPT/HCPCS: 36415; 80048; 80061; 84443; 85025

== ENCOUNTER → 2019-07-15 16:17 | Outpatient (CLI) | payer MEDICARE, OTHER, SELFPAY ==
[2019-07-15 10:34] VITALS: BMI 19.8
--- NOTE | 2019-07-15 16:40 | RAD_ITS ---
STUDY: X-RAY CHEST REASON FOR EXAM: Female, 73 years old. Shortness of breath, chest pain TECHNIQUE: PA and lateral chest 10/15/2018 COMPARISON: None. FINDINGS: There is stable biapical pulmonary scarring.. There is no demonstrated pleural abnormality. Normal size heart. Normal mediastinum and елена. Normal visualized pulmonary arteries. Normal visualized aortic arch and descending thoracic aorta. Stable S-shaped thoracolumbar spine scoliosis with mid thoracic spine kyphosis. There is stable mild to moderate compression deformities midthoracic spine with prior kyphoplasty unchanged. Normal visualized ribs, clavicles, and shoulders. There is no demonstrated abnormality of the visualized soft tissue structures of the upper abdomen. RAD/Chest PA and Lateral IMPRESSION: No acute process, no change from prior Stable biapical pulmonary scarring Stable S-shaped thoracolumbar spinal scoliosis with mild thoracic spine kyphosis stable mild to moderate compression deformities midthoracic spine with prior kyphoplasty unchanged Electronically Signed: Ned Riddle, at 5:05 EDT Tel , Service support ,
[2019-07-15 17:04] LABS: Prothrombin Time (Protime)PT. 12.6 SECONDS (11.7-14.9)
[2019-07-15 17:05] LABS: Partial Thromboplast Time 30.6 Seconds (24.1-36.2)
[2019-07-15 17:31] LABS: BNP,B-Type NATRIURETIC PEPTIDE 33.5 pg/mL (0-100)
== END ==
PROVIDERS: Family Provider Family Medicine; PCP Family Medicine; Referring Provider Physician Assistant Medical; Visit Provider Physician Assistant Medical
DX: I25.10 Atherosclerotic heart disease of native coronary artery without angina pectoris (principal); R06.09 Other forms of dyspnea; R07.9 Chest pain, unspecified
CPT/HCPCS: 36415; 71046; 83880; 85610; 85730

== ENCOUNTER 2019-07-16 10:21 | Observation (INO) | payer MEDICARE, OTHER, SELFPAY ==
[2019-07-15 10:34] VITALS: BMI 19.8
[2019-07-16] VITALS (8 sets, daily range): BP systolic 111–187; BP diastolic 73–104; PULSE 65–88; RESP 14–23; TEMP 36.4–37.3; O2SAT 96–98; BMI 20.4; BMI 19.5; BMI 19.6
--- NOTE | 2019-07-16 11:02 | EKG12_ITS ---
Test Reason : CP Blood Pressure : / mmHG Vent. Rate : 088 BPM Atrial Rate : 088 BPM P-R Int : 164 ms QRS Dur : 078 ms QT Int : 346 ms P-R-T Axes : 058 032 054 degrees QTc Int : 418 ms Normal sinus rhythm Minimal voltage criteria for LVH, may be normal variant Borderline ECG Confirmed by MARIANA SELLERS, RAJINDER ([id number]), acquisitions editor AMBROSE RAI ([id number]) on 07/18/2019 1:16:43 PM Referred By: Tanvi Todd Confirmed By:LEVY PEÑA MD
--- NOTE | 2019-07-16 11:04 | ED.DCSUM_ITS ---
History of Present Illness Chief Complaint: Chest Pain Informant: Patient, Spouse/S.O. Onset: Weeks - 2 Activity at onset: Exertion Timing: Continuous Quality: Heaviness, Pressure Location: Substernal Current Severity: Moderate Maximum Severity: Moderate Worsened By: Exertion. Not Worsened By: Breathing, Coughing Relieved By: Nothing. Not Relieved By: Rest, NTG - Tried 3 prior to arrival Associated Symptoms: Dyspnea, Lightheadedness. Negative for: Nausea, Vomiting, Diaphoresis, Cough, Fever, Acid Reflux, Palpitations Narrative: Patient has been having exertional chest discomfort for the past 2 weeks off and on, she saw cardiology Dr. Hughes twice in the past 2 weeks and had blood work and a chest x-ray yesterday, being scheduled for an echocardiogram and a diagnostic heart cath. This morning about 2 hours ago, she started having the same discomfort but worse, and at rest. Worse when she tried to exert herself/walk lightly. Discomfort is still there. Feels a little short of breath with it but discomfort is nonpleuritic. It is worse when she lies down but denies orthopnea. No edema. States she had Takotsubo cardiomyopathy in the past, pericardial window for a large effusion from unknown etiology. - Past Medical History (1) Asthma Status: Chronic (2) Atherosclerotic heart disease of [place] coronary artery without angina pectoris Status: Chronic Comment: Nonobstructive CAD per cath 12/11/[address] Navraez [facility] (3) Benign essential HTN Status: Chronic (4) COPD (chronic obstructive pulmonary disease) Status: Chronic (5) History of coronary vasospasm Status: Chronic (6) History of left heart catheterization Status: Chronic Comment: 12/05/2006 @ [facility] per Dr. Hughes; 12/11/[address] Narvaez@ [facility] (7) History of non-ST elevation myocardial infarction (NSTEMI) Status: Chronic (8) History of pericardiectomy Status: Chronic Comment: 03/09/[address] Chris Morse for recurrent pericardial effusion (9) Hyperlipidemia Status: Chronic (10) Osteoporosis Status: Chronic (11) Takotsubo cardiomyopathy Status: Chronic (12) Tongue cancer Status: Chronic Comment: 1998 Past Medical History - Allergies and Home Meds Allergies/Adverse Reactions: Allergies codeine Adverse Reaction (Verified 07/16/19 10:29) HEART RACES indomethacin [From Indocin] Adverse Reaction (Verified 07/16/19 10:29) Abd cramps/diarrhea indomethacin sodium [From Indocin] Adverse Reaction (Verified 07/16/19 10:29) Abd cramps/diarrhea levofloxacin [From Levaquin] Adverse Reaction (Verified 07/16/19 10:29) INCREASED BLOOD PRESSURE nitrofurantoin [From Macrobid] Adverse Reaction (Verified 07/16/19 10:29) Nausea/Vom/Diarrhea propoxyphene napsylate [From Darvocet-N 100] Adverse Reaction (Verified 07/16/19 10:29) PASSES OUT Primary Care Physician: Malcolm Mariscal MD [Primary Care Provider] - Surgical History: - - Pericardial window, partial tongue resection 1998 for tongue carcinoma, hysterectomy 1991, right neck region lymph node resection 1998, thoracic disc surgery 2012, appendectomy. Lives: Spouse/ Significant Other Smoking Status: Never smoker - Family History Maternal Family History: Family History (Last Reviewed 07/15/19 @ 15:52 by NAIMA Sierra) Father Myocardial infarction, Onset Age: 35 Family History: Reports: Cancer - age 84 Paternal Family History: Family History (Last Reviewed 07/15/19 @ 15:52 by NAIMA Sierra) Father Myocardial infarction, Onset Age: 35 Family History: Reports: Heart Disease - age 93, Hypertension Offspring Family History: Family History (Last Reviewed 07/15/19 @ 15:52 by NAIMA Sierra) Father Myocardial infarction, Onset Age: 35 Family History: Reports: - - 4 children and 4 grandchildren in good health Review of Systems General: Reports: Malaise. Denies: Chills, Fever, Sweats Eyes: Denies: Visual changes - bilaterally, Diplopia ENT: Denies: Rhinorrhea, Sore throat Cardiovascular: Reports: Chest pain. Denies: Palpitations Respiratory: Reports: Dyspnea. Denies: Cough, Dyspnea on exertion, Orthopnea Gastrointestinal: Denies: Abdominal pain, Nausea, Vomiting, Diarrhea, Melena, Hematochezia Genitourinary: Denies: Dysuria, Hematuria, Frequency Musculoskeletal: Denies: Neck pain, Back pain, Swelling, Extremity Pain Skin: Denies: Rash, Wounds Neurological: Denies: Headache, Weakness, Numbness Physical Exam Vital Signs/Narrative: Vital Signs Temp Pulse Resp BP Pulse Ox 07/16/19 10:40 77 23 H 177/91 H 97 07/16/19 10:22 97.6 F L 88 20 H 187/104 H 96 Inital Vital Signs reviewed: Yes General: Well nourished, Well developed, No Acute Distress Head: Normocephalic, Atraumatic Eyes: Perrl, EOMI ENT: Moist mucous membranes, No rhinorrhea Neck: Supple, Nontender, No JVD Cardiovascular: Regular rate, Regular rhythm, No murmurs Respiratory: No distress, CTA bilaterally, Chest nontender Abdomen: Soft, Nontender, Nondistended, Normal bowel sounds Back: Nontender, Normal Inspection Extremities: Nontender, No edema. Negative for: Calf Tenderness Skin: Normal color, No rash, No Trauma Neurological: Alert, Oriented x3, Cranial nerves II-XII grossly intact, Normal Strength, Normal Sensation Psychological: Normal affect, Normal Mood Diagnostic/Tx/Re-eval Laboratory Results 07/16/19 07/16/19 07/16/19 10:41 10:41 12:13 WBC 4.4 RBC 3.59 L Hgb 12.5 Hct 34.5 L MCV 96.1 MCH 34.8 H MCHC 36.2 H RDW Std Deviation 47.1 H RDW Coeff of Dianne 14.8 H Plt Count 323 MPV 8.8 Immature Gran % (Auto) 0.200 Neut % (Auto) 66.3 Lymph % (Auto) 24.4 Ector % (Auto) 7.7 Eos % (Auto) 0.7 Baso % (Auto) 0.7 Absolute Neuts (auto) 2.9 Absolute Lymphs (auto) 1.08 Nucleated RBC % 0 APTT 29.2 Sodium Cancelled Potassium Cancelled Chloride Cancelled Carbon Dioxide Cancelled Anion Gap Cancelled BUN Cancelled Creatinine Cancelled Estim Creat Clear Calc Cancelled Est GFR (MDRD) Af Amer Cancelled Est GFR (MDRD) Non-Af Cancelled BUN/Creatinine Ratio Cancelled Glucose Cancelled Calcium Cancelled Troponin I Cancelled 07/16/19 12:13 WBC RBC Hgb Hct MCV MCH MCHC RDW Std Deviation RDW Coeff of Dianne Plt Count MPV Immature Gran % (Auto) Neut % (Auto) Lymph % (Auto) Ector % (Auto) Eos % (Auto) Baso % (Auto) Absolute Neuts (auto) Absolute Lymphs (auto) Nucleated RBC % APTT Sodium 131 L Potassium 3.9 Chloride 96 L Carbon Dioxide 28.0 Anion Gap 7 BUN 12 Creatinine 0.74 Estim Creat Clear Calc 43.33 Est GFR (MDRD) Af Amer 98 Est GFR (MDRD) Non-Af 81 BUN/Creatinine Ratio 16.1 Glucose 104 Calcium 8.5 Troponin I < 0.015 - Rhythm Strip Rhythm Strip: Sinus Rhythm Rate: 88 Ectopy: None - EKG Initial EKG Interpretation: Sinus Rhythm, No Acute Injury Pattern, Non-Specific ST Changes - aVL, - - Normal axis Prior: Unchanged Treatment: Aspirin, Morphine Repeat Eval: 10/03 - Medical Decision Making On reevaluation after morphine patient states the pain is barely there she is feeling much better. Her troponin returned negative. This was only after couple hours pain this episode. Discussed with Dr. Hughes who recommends admission and probable heart cath tomorrow. Will discuss with hospitalist for PCU admission. ED Disposition - Plan for ED Patient: Disposition: Acute Care Hospital [facility] Diagnosis: Chest pain Referrals: Malcolm Mariscal MD [Primary Care Provider] -
[2019-07-16 11:22] LABS: Absolute Lymphocyte Count 1.08 X10^3/uL (0.83-4.51); Absolute Neutrophil Count 2.9 X10^3/uL (2.0-7.7); Basophil# 0.03 X10^3/uL; Basophil% 0.7 % (0-1); Eosinophil# 0.03 X10^3/uL; Eosinophils% 0.7 % (0-5); Hematocrit 34.5 % (37-47); Hemoglobin 12.5 g/dL (12.0-15.0); Lymphocyte # 1.08 X10^3/ul (4.0); Lymphocyte % 24.4 % (19-41); Mean Corp Hgb Conc 36.2 g/dL (32-36); Mean Corpuscular Hgb 34.8 pg (27.0-32.0); Mean Corpuscular Volume 96.1 fL (81-99); Mean Platelet Vol. 8.8 fl (6.2-12.0); Monocyte# 0.34 X10^3/uL; Monocyte% 7.7 % (0-10); NRBC Flagged by Analyzer 0 % (0-5); Neutrophil # 2.93 X10^3/uL (2.7-7.7); Neutrophil % 66.3 % (47-70); Platelet Count 323 K/mm3 (150-450); RBC Distribution Width CV 14.8 % (11.6-14.6); RBC Distribution Width SD 47.1 fl (35.1-43.9); Red Blood Count 3.59 M/mm3 (4.2-5.4); White Blood Count 4.4 K/mm3 (4.4-11.0)
[2019-07-16] MEDS: Morphine 4 MG/ML Syringe IV (12:19)
[2019-07-16 12:50] LABS: Anion Gap 7 (5-15); BUN 12 mg/dL (7-18); BUN/Creat Ratio 16.1 RATIO (10-20); Calcium,Total 8.5 mg/dL (8.5-10.1); Chloride 96 mmol/L (98-107); Creatinine, Serum 0.74 mg/dL (0.55-1.02); EST Glomerular Filtration Rate 81 mL/min (>60); Est Glom Filt Rate - Afr Amer 98 mL/min (>60); Estimated Creatinine Clearance 43.33 ml/min; Glucose 104 mg/dL (74-106); Potassium 3.9 mmol/L (3.5-5.1); Sodium Level 131 mmol/L (136-145)
[2019-07-16 12:59] LABS: Partial Thromboplast Time 29.2 Seconds (24.1-36.2)
--- NOTE | 2019-07-16 15:45 | HP.PCM_ITS ---
History of Present Illness Date of Admission: 07/16/19 Chief Complaint: chest pain The patient is a 73 year old F with a past medical history as listed and includes Takotsubo cardiomyopathy and nonobstructive coronary artery disease. She was admitted through the ED on 07/16/2019 with a complaint of chest pain which started around 9 AM on the day of admission. 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 She had been scheduled for outpatient cath. However this morning started having severe chest pain which was pressure-like and left- sided with a stent lightheadedness and dizziness so she decided to come into the ED. Review of systems is otherwise negative. In the ED, vitals were significant for temperature of 99.2 Fahrenheit. Blood pressure was initially elevated at 177/91 but at time of review was down to 111/73. Labs showed sodium of 131 and CBC was essentially unremarkable. Initial EKG showed no acute ST changes. Initial troponin was also negative. She has been admitted to be managed for chest pain to rule out ACS. [] Past Medical History Past Medical History (Chronic Problems): Chronic Problems (Last Reviewed 07/15/19 @ 15:52 by NAIMA Sierra) 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 Chris Morse for recurrent pericardial effusion COPD (chronic obstructive pulmonary disease) (Chronic) Hyperlipidemia (Chronic) History of non-ST elevation myocardial infarction (NSTEMI) (Chronic) Takotsubo cardiomyopathy (Chronic) History of left heart catheterization (Chronic) 12/05/2006 @ [facility] per Dr. Hughes; 12/11/[address] Narvaez@ [facility] Atherosclerotic heart disease of [place] coronary artery without angina pectoris (Chronic) Nonobstructive CAD per cath 12/11/[address] Narvaez [facility] Asthma (Chronic) Benign essential HTN (Chronic) Osteoporosis (Chronic) History of coronary vasospasm (Chronic) Tongue cancer (Chronic) 1998 Medical History: Medical History (Last Reviewed 07/15/19 @ 15:52 by NAIMA Sierra) COPD (chronic obstructive pulmonary disease) (Chronic) J44.9 Hyperlipidemia (Chronic) E78.5 History of non-ST elevation myocardial infarction (NSTEMI) (Chronic) I25.2 Takotsubo cardiomyopathy (Chronic) I51.81 Atherosclerotic heart disease of [place] coronary artery without angina pectoris (Chronic) I25.10 Nonobstructive CAD per cath 12/11/[address] Narvaez [facility] Asthma (Chronic) J45.909 Benign essential HTN (Chronic) I10 History of coronary vasospasm (Chronic) Z86.79 Allergies codeine Adverse Reaction (Verified 07/16/19 10:29) HEART RACES indomethacin [From Indocin] Adverse Reaction (Verified 07/16/19 10:29) Abd cramps/diarrhea indomethacin sodium [From Indocin] Adverse Reaction (Verified 07/16/19 10:29) Abd cramps/diarrhea levofloxacin [From Levaquin] Adverse Reaction (Verified 07/16/19 10:29) INCREASED BLOOD PRESSURE nitrofurantoin [From Macrobid] Adverse Reaction (Verified 07/16/19 10:29) Nausea/Vom/Diarrhea propoxyphene napsylate [From Darvocet-N 100] Adverse Reaction (Verified 07/16/19 10:29) PASSES OUT Home Medications: Ambulatory Orders Medication Instructions Recorded Calcium Carb/Vitamin D3/Vit K1 2 ea PO QHS 12/08/14 [Citracal Soft Chew] Lorazepam [Ativan] 0.25 mg PO DAILY PRN PRN 12/08/14 Pravastatin [Pravachol] 80 mg PO QHS 12/08/14 Albuterol Inhaler [Ventolin Hfa] 1 - 2 puff INHALATION Q6H PRN PRN 05/30/17 #1 inhaler cranberry fruit concentrate 250 mg 250 mg PO DAILY tab 10/29/17 chewable tablet levocetirizine 5 mg tablet 5 mg PO QHS PRN tab 10/29/17 ranitidine 150 mg tablet 150 mg PO DAILY tab 10/29/17 sucralfate 1 gram tablet 1 gm PO QHS PRN tab 10/29/17 Pantoprazole Sodium 40 mg PO DAILY 10/15/18 Raloxifene HCl [Evista] 60 mg PO DAILY 10/15/18 amlodipine 5 mg tablet 5 mg PO DAILY #90 tab 10/16/18 metoprolol succinate ER 50 mg 50 mg PO DAILY #90 tab 03/05/19 tablet,extended release 24 hr Acetaminophen [Tylenol Arthritis] 650 - 1,300 mg PO QHS PRN PRN 07/16/19 Nitroglycerin (INPATIENT USE) 0.4 mg SUBLINGUAL Q5M PRN 07/16/19 [Nitrostat] Surgical History: Surgical History (Last Reviewed 07/15/19 @ 15:52 by NAIMA Seirra) History of pericardiectomy (Chronic) Z98.890 03/09/[address] Chris Morse for recurrent pericardial effusion History of left heart catheterization (Chronic) Z98.890 12/05/2006 @ [facility] per Dr. Hughes; 12/11/[address] Narvaez@ [facility] History of cataract surgery Z98.49 Rt Surgical History: - - Pericardial window, partial tongue resection 1998 for tongue carcinoma, hysterectomy 1991, right neck region lymph node resection 1998, thoracic disc surgery 2012, appendectomy. 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 History: No pertinent BENCH CHEMIST history Lives: Spouse/ Significant Other Smoking Status: Never smoker Tobacco Use: Non-smoker - *Family History Maternal Family History: Family History (Last Reviewed 07/15/19 @ 15:52 by NAIMA Sierra) Father Myocardial infarction, Onset Age: 35 History Items: Cancer - age 84 Paternal Family History: Family History (Last Reviewed 07/15/19 @ 15:52 by NAIMA Sierra) Father Myocardial infarction, Onset Age: 35 History Items: Heart Disease - age 93, Hypertension Offspring Family History: Family History (Last Reviewed 07/15/19 @ 15:52 by NAIMA Sierra) Father Myocardial infarction, Onset Age: 35 History Items: - - 4 children and 4 grandchildren in good health Review of Systems Constitutional: Denies: Chills, Fever, Malaise, Weakness, Weight Change Eyes: Denies: Blurred vision HEENT: Denies: Head Aches, Sinus Congestion, Sinus Drainage Cardiovascular: Reports: Chest Pain, Light Headedness. Denies: Chest Pressure, Chest Tightness, Edema, Heaviness, Orthopnea, Palpitations, Paroxysmal Noc. Dyspnea, Syncope Respiratory: Reports: Shortness of breath upon exertion. Denies: Cough, Shortness of Breath, Shortness of breath at rest, Sputum production Gastrointestinal: Denies: Abdominal Pain, Nausea, Vomiting Genitourinary: Denies: Dysuria Gynecological: Denies: Breast symptoms Musculoskeletal: Denies: Joint Pain, Joint Tenderness Skin: Denies: Rash, Wounds Neurological: Denies: Numbness, Tingling, Focal weakness Psychiatric: Denies: Anxiety, Depression, Homicidal Ideations, Suicidal Ideations Hematologic/ Lymphatic: Denies: Easy Bruising, Easy Bleeding VTE Information - Inpt Only VTE Present on Admission: No VTE Pharm Prophylaxis ordered?: Yes Patient Problems: Active and Suspected Problems (Last Reviewed 07/15/19 @ 15:52 by NAIMA Sierra) Chest pain (Acute) - Physical Exam Vitals/I&O's: Vital Signs Temp Pulse Resp BP Pulse Ox 99.2 F H 67 14 111/73 97 07/16/19 15:36 07/16/19 15:36 07/16/19 15:36 07/16/19 15:36 07/16/19 15:36 Oxygen Flow Rate (L/min) 2 Oxygen Delivery Method Room Air Weight: 113 lb 15.664 oz Body Mass Index (BMI) 19.5 General: Alert, Oriented x3, Cooperative, No apparent distress HEENT: Atraumatic, PERRLA, EOMI, Normocephalic Oral: Moist Mucosa Neck: Supple, No JVD, Negative Carotid Bruits Lungs: Clear to auscultation, Normal air movement, No rhonchi, No wheeze Cardiovascular: Regular rate, Regular Rhythm, Normal S1, Normal S2, No murmurs Abdomen: Bowel Sounds Present, Soft, Non Tender, Non-Distended, No Hepato- splenomegaly Extremities: No clubbing, No cyanosis, No edema, Capillary Refill Less than 3 Seconds Skin: No rashes, No breakdown Musculoskeletal: No Tenderness to Palpation of Joints or Extremities Lymphatic: No Cervical, Supraclavicular, or Inguinal Adenopathy Neurological: Cranial nerves II-XII grossly intact, Neuro grossly intact, Motor Exam 5/5 strength throughout Psych/Mental Status: Normal Affect, Appropriate, Alert and oriented to time, place, person, mood and affect Laboratory Results 07/16/19 10:41: WBC 4.4, RBC 3.59 L, Hgb 12.5, Hct 34.5 L, MCV 96.1, MCH 34.8 H, MCHC 36.2 H, RDW Std Deviation 47.1 H, RDW Coeff of Dianne 14.8 H, Plt Count 323, MPV 8.8, Immature Gran % (Auto) 0.200, Neut % (Auto) 66.3, Lymph % (Auto) 24.4, [place] % (Auto) 7.7, Eos % (Auto) 0.7, Baso % (Auto) 0.7, Absolute Neuts (auto) 2.9, Absolute Lymphs (auto) 1.08, Nucleated RBC % 0 07/16/19 10:41: Sodium Cancelled, Potassium Cancelled, Chloride Cancelled, Carbon Dioxide Cancelled, Anion Gap Cancelled, BUN Cancelled, Creatinine Cancelled, Estim Creat Clear Calc Cancelled, Est GFR (MDRD) Af Amer Cancelled, Est GFR (MDRD) Non-Af Cancelled, BUN/Creatinine Ratio Cancelled, Glucose Cancelled, Calcium Cancelled, Troponin I Cancelled 07/16/19 12:13: APTT 29.2 07/16/19 12:13: Sodium 131 L, Potassium 3.9, Chloride 96 L, Carbon Dioxide 28.0, Anion Gap 7, BUN 12, Creatinine 0.74, Estim Creat Clear Calc 43.33, Est GFR (MDRD) Af Amer 98, Est GFR (MDRD) Non-Af 81, BUN/Creatinine Ratio 16.1, Glucose 104, Calcium 8.5, Troponin I < 0.015 Assessment/Plan All Active Problems (Last Reviewed 07/15/19 @ 15:52 by NAIMA Sierra) Chest pain (Acute) 73 y/o female admitted with a complaint of chest pain 1. Chest pain to r/o ACS * admit to PCU with telemetry * initial troponin negative; will cycle * EKG showed no acute ST changes. * Sublingual nitroglycerin as needed. Morphine as needed. * Consult cardiology for cath as patient was scheduled to have cath on outpatient basis. Dr. Hughes informed by ED. * of note, she had negative stress test iun 2018. 2. History of Takotsubo cardiomyopathy: Stable. On metoprolol 50 mg daily. 3. History of nonobstructive CAD: On metoprolol and sublingual nitro as well as lovastatin and raloxifene. Had cardiac cath in November 2015 which showed nonobstructive CAD. 4. She of asthma and COPD: On breathing treatments. 5. Hyperlipidemia: On statin 6. Hypertension: On amlodipine and metoprolol. Prophylaxis: Lovenox Code Status: Full code * Patient counseled extensively about different types of CODE STATUS including full code, DNR CCA and DNR CCA. Patient elects to be full code. Total [id number] time 16 minutes. Code Visit OBSV E&M: 68832 Initial observation care L3 Procedures: 03379 Advncd Care Plan 30 Min
--- NOTE | 2019-07-16 16:28 | EKG12_ITS ---
Test Reason : ADMISSION CP Blood Pressure : / mmHG Vent. Rate : 063 BPM Atrial Rate : 063 BPM P-R Int : 180 ms QRS Dur : 088 ms QT Int : 412 ms P-R-T Axes : 062 027 052 degrees QTc Int : 421 ms Normal sinus rhythm Minimal voltage criteria for LVH, may be normal variant Borderline ECG When compared with ECG of 16-JUL-2019 10:27, MANUAL COMPARISON REQUIRED, DATA IS UNCONFIRMED Confirmed by JASE SELLERS, LESLIE ([id number]), make up editor CHATA BALBUENA ([id number]) on 07/21/2019 11:33:22 AM Referred By: Tanvi Todd Confirmed By:LESLIE LAGUNA MD
--- NOTE | 2019-07-16 18:42 | ECHOD_ITS ---
Reason For Study: Chest pain Procedure This was a 2D Doppler, Color Flow transthoracic echocardiogram. The study was technically difficult. Exam performed portable in patient room. Left Ventricle Normal LV size. Left ventricular systolic function is normal. The estimated ejection fraction is 65 %. No evidence for diastolic dysfunction. No regional wall motion abnormalities noted. Right Ventricle Normal RV size. Normal systolic function. Atria Normal left atrium. Normal right atrium. No doppler evidence for ASD. Mitral Valve There is no mitral annular calcification. Normal mitral valve. Trivial mitral valve insufficiency. Tricuspid Valve Normal tricuspid valve. Trivial tricuspid valve insufficiency. Right ventricular systolic pressure estimated to be 22 mmHg. Aortic Valve The aortic valve is not well visualized. Mild focal aortic valve calcification. Pulmonic Valve The pulmonic valve is not well visualized. Great Vessels Normal sized aortic root. Pericardium/Pleural No pericardial effusion. MMode/2D Measurements & Calculations LVIDd: 2.8 cm IVSd: 0.77 cm Ao root diam: 2.9 cm LVIDs: 1.6 cm LVPWd: 0.86 cm RVDd: 3.1 cm FS: 41.8 % LAV(MOD-bp): 34.2 ml LA A4 area: 12.6 cm2 LA dimension(2D): 3.1 cm LAV(MOD-bp) Indexed: 22.3 ml/m2 LAV(MOD-sp2): 39.3 ml LAV(MOD-sp4): 29.0 ml RA A4 area: 11.6 cm2 Doppler Measurements & Calculations MV E max sandro: 55.9 cm/sec Lat Peak E' Sandro: 10.0 cm/sec Med Peak E' Sandro: 5.4 cm/sec MV A max sandro: 79.3 cm/sec E/E' lat: 5.6 E/E' med: 10.3 MV E/A: 0.71 Ao V2 max: 133.5 cm/sec LV V1 max: 118.5 cm/sec PA V2 max: 100.9 cm/sec Ao max P.1 mmHg LV V1 max P.6 mmHg TR max sandro: 220.4 cm/sec TR max P.4 mmHg Interpretation Summary The study was technically difficult. Left ventricular systolic function is normal. The estimated ejection fraction is 65 %. Trivial mitral valve insufficiency. Trivial tricuspid valve insufficiency. Mild focal aortic valve calcification. Right ventricular systolic pressure estimated to be 22 mmHg. No evidence for diastolic dysfunction. Ordering Physician: Malcolm Hughes Referring Physician: Tanvi Todd Performed By: Brenda Rg RDCS
--- NOTE | 2019-07-16 18:46 | CON.PCM_ITS ---
Problem List (1) Chest pain Status: Acute (2) CAD in [place] artery Status: Chronic (3) Takotsubo cardiomyopathy Status: Chronic (4) S/P pericardial window creation Status: Chronic (5) Hyperlipidemia Status: Chronic Qualifiers: Hyperlipidemia type: unspecified Qualified Code(s): E78.5 - Hyperlipidemia, unspecified (6) Benign essential HTN Status: Chronic (7) COPD (chronic obstructive pulmonary disease) Status: Chronic (8) Tongue cancer Status: Resolved Comment: 1998 Reason for Consult Date of Consultation: 07/16/19 History of Present Illness: The patient is a 73 year old white female with a past cardiovascular history which is included CAD-previously non-angiographically significant, Takotsobu Syndrome, pericardial effusion status post pericardial window, hyperlipidemia, hypertension, COPD, and head neck carcinoma (remote/resolved) who is referred for recurrent chest discomfort concerning for accelerating angina pectoris for further evaluation with diagnostic cardiac catheterization. The patient states that she was ill with what she believes was the flu approximately 6 weeks ago. She states since that time she has not felt well. She has been tired and fatigued. She has had progressive chest discomfort which she states bothers her at rest but also with exertion such as walking. She is developed chest heaviness and pressure. She notes it has radiated up her neck into her jaw. She has been more short of breath and dyspneic. She has not complained of acute orthopnea or PND or peripheral pitting edema of the lower extremities. She states she has been dizzy and lightheaded at times but there has been no near syncope or syncope. She was evaluated by her PCP and referred for outpatient cardiovascular evaluation. She was subsequently evaluated in the outpatient setting and based upon her history and concerns scheduled for upcoming evaluati on with transthoracic echocardiogram to reassess her left ventricular wall motion and systolic function as well as her pericardial space and diagnostic cardiac catheterization to reassess her coronary anatomy. In the interim she has had recurrent symptoms that took her to the emergency department this day. Her initial cardiac enzyme was negative. Her ECG demonstrated sinus rhythm with minimal voltage criteria for LVH with no acute ECG changes. She was placed in the PCU for further evaluation and care. She has remained in sinus rhythm. She has had no recurrent discomfort at this time. [] Past Medical History Allergies/Adverse Reactions: Allergies codeine Adverse Reaction (Verified 07/16/19 10:29) HEART RACES indomethacin [From Indocin] Adverse Reaction (Verified 07/16/19 10:29) Abd cramps/diarrhea indomethacin sodium [From Indocin] Adverse Reaction (Verified 07/16/19 10:29) Abd cramps/diarrhea levofloxacin [From Levaquin] Adverse Reaction (Verified 07/16/19 10:29) INCREASED BLOOD PRESSURE nitrofurantoin [From Macrobid] Adverse Reaction (Verified 07/16/19 10:29) Nausea/Vom/Diarrhea propoxyphene napsylate [From Darvocet-N 100] Adverse Reaction (Verified 07/16/19 10:29) PASSES OUT Home Medications: Ambulatory Orders Medication Instructions Recorded Calcium Carb/Vitamin D3/Vit K1 2 ea PO QHS 12/08/14 [Citracal Soft Chew] Lorazepam [Ativan] 0.25 mg PO DAILY PRN PRN 12/08/14 Pravastatin [Pravachol] 80 mg PO QHS 12/08/14 Albuterol Inhaler [Ventolin Hfa] 1 - 2 puff INHALATION Q6H PRN PRN 05/30/17 #1 inhaler cranberry fruit concentrate 250 mg 250 mg PO DAILY tab 10/29/17 chewable tablet levocetirizine 5 mg tablet 5 mg PO QHS PRN tab 10/29/17 ranitidine 150 mg tablet 150 mg PO DAILY tab 10/29/17 sucralfate 1 gram tablet 1 gm PO QHS PRN tab 10/29/17 Pantoprazole Sodium 40 mg PO DAILY 10/15/18 Raloxifene HCl [Evista] 60 mg PO DAILY 10/15/18 amlodipine 5 mg tablet 5 mg PO DAILY #90 tab 10/16/18 metoprolol succinate ER 50 mg 50 mg PO DAILY #90 tab 03/05/19 tablet,extended release 24 hr Acetaminophen [Tylenol Arthritis] 650 - 1,300 mg PO QHS PRN PRN 07/16/19 Nitroglycerin (INPATIENT USE) 0.4 mg SUBLINGUAL Q5M PRN 07/16/19 [Nitrostat] Past Medical History (Chronic Problems): Chronic Problems (Last Reviewed 07/15/19 @ 15:52 by ANIMA Sierra) CAD in [place] artery (Chronic) S/P pericardial window creation (Chronic) 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 Chris Morse for recurrent pericardial effusion COPD (chronic obstructive pulmonary disease) (Chronic) Hyperlipidemia (Chronic) History of non-ST elevation myocardial infarction (NSTEMI) (Chronic) Takotsubo cardiomyopathy (Chronic) History of left heart catheterization (Chronic) 12/05/2006 @ [facility] per Dr. Hughes; 12/11/[address] Narvaez@ [facility] Atherosclerotic heart disease of [place] coronary artery without angina pectoris (Chronic) Nonobstructive CAD per cath 12/11/[address] Narvaez [facility] Asthma (Chronic) Benign essential HTN (Chronic) Osteoporosis (Chronic) History of coronary vasospasm (Chronic) Surgical History: - - Pericardial window, partial tongue resection 1998 for tongue carcinoma, hysterectomy 1991, right neck region lymph node resection 1998, thoracic disc surgery 2012, appendectomy. Psychiatric History: No pertinent psych hx BRUSH HAND History: No pertinent BRUSH HAND history - *Family History Maternal Family History: Family History (Last Reviewed 07/15/19 @ 15:52 by NAIMA Sierra) Father Myocardial infarction, Onset Age: 35 History Items: Cancer - age 84 Paternal Family History: Family History (Last Reviewed 07/15/19 @ 15:52 by NAIMA Sierra) Father Myocardial infarction, Onset Age: 35 History Items: Heart Disease - age 93, Hypertension Offspring Family History: Family History (Last Reviewed 07/15/19 @ 15:52 by NAIMA Sierra) Father Myocardial infarction, Onset Age: 35 History Items: - - 4 children and 4 grandchildren in good health Lives: Spouse/ Significant Other Smoking Status: Never smoker Tobacco Use: Non-smoker Review of Systems - Review of Systems General: Reports: Fatigue, Weakness, Decreased Appetite. Denies: Fever, Night Sweats HEENT: Reports: Sore Throat Cardiovascular: Reports: Chest Discomfort, Chest Discomfort at Rest, Chest Discomfort with Exertion, Shortness of Breath, Shortness of Breath at Rest, Shortness of Breath with Exertion, Lightheadedness. Denies: Orthopnea, PND, Peripheral Edema, Palpitations, Dizziness, Near Syncope, Syncope Respiratory: Reports: Shortness of Breath. Denies: Cough, Sputum Production, Hemoptysis Gastrointestinal: Denies: Hematemesis, Hematochezia, Melena Genitourinary: Denies: Dysuria, Hematuria Skin: Denies: Rash Subjectve: This is a 73-year-old thin white female who appears to be resting comfortably at the moment in no acute distress. Objective: Vital Signs Temp Pulse Resp BP Pulse Ox 99.2 F H 65 14 111/73 97 07/16/19 15:36 07/16/19 15:56 07/16/19 15:36 07/16/19 15:36 07/16/19 15:36 Oxygen Flow Rate (L/min) 2 Oxygen Delivery Method Room Air Weight: 113 lb 15.664 oz Body Mass Index (BMI) 19.5 Intake and Output for Last 24 Hours 07/14/19 07/15/19 07/16/19 23:59 23:59 23:59 Intake Total 240 / 240 Balance 240 / 240 General: Awake, Alert, Oriented x 3, Cooperative, No Acute Distress HEENT: Atraumatic, Normocephalic, PERRL, EOMI, Sclera Non Icteric Oral: Moist Mucosa Neck: Supple, Good ROM, No JVD Lungs: Clear to auscultation Cardiovascular: Regular Rhythm, Normal S1, Normal S2 Vascular: No Carotid Bruits Abdomen: Bowel Sounds Present, Soft, Non Tender Extremities: No Cyanosis, No Clubbing, No edema Neurological: No Focal Motor or Sensory Deficit Psych/Mental Status: Appropriate 07/16/19 10:41: WBC 4.4, RBC 3.59 L, Hgb 12.5, Hct 34.5 L, MCV 96.1, MCH 34.8 H, MCHC 36.2 H, Plt Count 323, MPV 8.8, Immature Gran % (Auto) 0.200, Neut % (Auto) 66.3, Lymph % (Auto) 24.4, [place] % (Auto) 7.7, Eos % (Auto) 0.7, Baso % (Auto) 0.7, Absolute Neuts (auto) 2.9, Nucleated RBC % 0 07/16/19 10:41: Sodium Cancelled, Potassium Cancelled, Chloride Cancelled, Carbon Dioxide Cancelled, Anion Gap Cancelled, BUN Cancelled, Creatinine Cancelled, Est GFR (MDRD) Af Amer Cancelled, Est GFR (MDRD) Non-Af Cancelled, BUN/Creatinine Ratio Cancelled, Glucose Cancelled, Calcium Cancelled, Troponin I Cancelled 07/16/19 12:13: APTT 29.2 07/16/19 12:13: Sodium 131 L, Potassium 3.9, Chloride 96 L, Carbon Dioxide 28.0, Anion Gap 7, BUN 12, Creatinine 0.74, Est GFR (MDRD) Af Amer 98, Est GFR (MDRD) Non-Af 81, BUN/Creatinine Ratio 16.1, Glucose 104, Calcium 8.5, Troponin I < 0.015 07/16/19 17:20: Troponin I < 0.015 Rhythm: Sinus rhythm EKG: As noted above ECHO: 12-10-15: Left ventricle reported as normal with no regional wall motion abnormalities with an estimated LVEF of 60% and no pericardial effusion Stress Test: Stress Test Report Date: 10/22/2018 Procedure: Exercise tolerance test/imaging study Indications: Chest pain Consent: Per the patient Procedure: The patient exercised on a Jeffery protocol for 6 minutes completing Stage I achieving a peak heart rate of 150 bpm (100 % predicted maximal heart rate) with a peak blood pressure 172/84 mmHg and a peak MET capacity of 7 METs. The baseline ECG demonstrated normal sinus rhythm . The peak exercise ECG demonstrated no obvious ECG changes . There were no cardiac dysrhythmias pretest, during exercise, or recovery. The functional capacity was considered good . There was no complaint of chest discomfort during exercise or recovery. The examination was discontinued secondary to dyspnea . Impression: 1. Technically adequate (percent predicted maximal heart rate greater than 85%) exercise tolerance test 2. Peak exercise ECG with no obvious ECG changes 3. There were no cardiac dysrhythmias pretest, during exercise, or recovery 4. Nuclear images pending Myocardial perfusion imaging study: Technique: The patient was injected with 11.2 mCi of technetium 99m Cardiolite and subsequently rest SPECT Cardiolite nuclear imaging was obtained in the horizontal long, vertical long, and short axis views. The patient exercised on a Jeffery protocol for 6 minutes completing Stage 1 achieving a peak heart rate of 150 bpm (100 % predicted maximal heart rate) with a peak blood pressure 172/84 mmHg and a peak MET capacity of 7 METs. The patient was injected with 32.6 mCi of technetium 99m Cardiolite and subsequently stress SPECT Cardiolite nuclear imaging was obtained in the horizontal long, vertical long, and short axis views. A gated Cardiolite study at peak stress was obtained. Interpretation: Rest and stress SPECT Cardiolite nuclear imaging status post realignment, normalization, and attenuation correction, demonstrates the appearance of relative uniform tracer uptake and myocardial perfusion appearing within normal limits. There is end systolic thickening and brightening. The gated Cardiolite study demonstrates myocardial thickening and inward wall motion. The reported LVEF is 82 %. Impression: 1. Rest and stress SPECT Cardiolite nuclear imaging demonstrate relative uniform tracer uptake and myocardial perfusion appearing within normal limits. 2. The gated Cardiolite study reports an LVEF of 82 %. Cardiac Cath: 12-11-15 LEFT MAIN: The left main is a large vessel, which bifurcates into an LAD and a left circumflex artery. The left main is angiographically normal. LEFT ANTERIOR DESCENDING: The LAD is a large vessel, which wraps around the apex of the heart. In the mid portion just after the diagonal branch there is what appears to be an eccentric 40% stenosis, which does not appear to be flow limiting. The remainder of the LAD is free of significant disease. DIAGONAL BRANCHES: Diagonal branches are angiographically normal. LEFT CIRCUMFLEX: The left circumflex is a moderate-sized vessel, which is also free of significant disease. OBTUSE MARGINAL #1: The obtuse marginal #1 is a small vessel, which is also angiographically normal. The JL4 catheter was easily exchanged over a wire for a 4[place] 3DRC catheter. This was easily engaged into the right coronary artery. There was no dampening or ventricularization upon engagement. RIGHT CORONARY ARTERY: The RCA is a large and dominant vessel, which is angiographically normal in its proximal, mid and distal portion. It bifurcates into the PDA quite high in the mid portion of the RCA. This populates the distal inferior apical portion of the heart. The remainder of the posterolateral branches have several posterolateral branches all of which are angiographically normal. The 3DRC catheter was exchanged over a wire for a 4[place] angled pigtail catheter. This was easily engaged in left ventricular chamber. LV pressure was 199 with an EDP of 19, AO pressure was 188/95 with a mean of 138. LV angiogram performed in the 30-degree BANSAL position demonstrated excellent anterior apical and inferior contractility. Overall ejection fraction of approximately 65-70%. There is no significant gradient seen on pullback. No mitral regurgitation seen. CONCLUSIONS: 1. Angiographically normal left circumflex and right coronary artery. 2. Nonobstructive disease in the middle portion of the LAD just after diagonal #2. 3. Normal LV function with an EF of 65%. 4. Moderately elevated LVEDP. CXR: Preliminary review: No acute cardiopulmonary disease process appreciated; scoliosis; please see official report Assessment/Plan 1. Chest pain/accelerating angina pectoris The patient presents with symptoms that are concerning for accelerating angina pectoris. She has had a history in the past of non-angiographically significant CAD. She has undergone noninvasive evaluation earlier this year with a pharmacologic stress nuclear imaging study which was considered negative for evidence of inducible myocardial ischemia. She presents back now with ongoing chest discomfort and associated symptoms concerning for accelerating angina pectoris. At the moment her troponin I level is negative. Her ECG is demonstrated no new acute changes. She will be monitored. She will continue medical therapy as deemed appropriate. She will, as previously planned, proceed with further evaluation with diagnostic cardiac catheterization. Depending upon the findings she may or may not need further cardiac diagnostic studies/intervention. If she is found to have no angiographically significant CAD to explain her symptoms then she will need continued noncardiac evaluation of her symptoms which may include further evaluation of her thoracic cavity or gastrointestinal tract with respect to underlying pulmonary disease issues, great vessel issues, gastrointestinal issues, etc. all as deemed appropriate. 2. CAD Again she has had a history of non-angiographically significant appearing CAD. She does need to continue evaluation and care as noted above. She will continue risk factor evaluation care as well as deemed appropriate. 3. Takotsubo syndrome She has had a history of this syndrome in the past. She has been evaluated noninvasively and invasively in the past. Her overall LV systolic function has been preserved based upon her most recent noninvasive studies. Based upon her ongoing issues she will undergo reevaluation for progression of CAD and/or recurrence of this syndrome. 4. Pericardial effusion status post pericardial window She has had a history, during her head neck carcinoma, pericardial effusion. At that time she underwent pericardial window placement. She has had no obvious recurrent effusion. She states in some ways her symptoms feel as if he has had a recurrence of her pericardial effusion. Her chest x-ray does not suggest an increased cardiac silhouette size. However, it she will proceed with echocardiographic findings to reassess her pericardial space for any obvious evidence of recurrent effusion that would warrant further evaluation care. 5. Hyperlipidemia She will continue medical management as deemed appropriate. 6. Hypertension She will continue to have her blood pressure monitored. She is known to have intermittent spikes in her heart rate and blood pressure. She has been evaluated for such multiple times in the past both locally and at other facilities by cardiology and endocrinology for underlying hormonal issues such as pheochromocytoma, etc. Thus far she has received no definitive diagnosis. She will continue medical management as deemed appropriate. 7. COPD She is concerned that her pulmonary disease process may be progressing and this may be contributing to some of her symptoms as well. This may need to be reassessed by her primary care physician and/or pulmonology. 8. Head neck carcinoma She has a history of remote head neck carcinoma which she states is over 9 years ago. She states she no longer requires yearly follow-up with her oncologist. The above was discussed with the patient, her spouse, and her multiple family members present. This note was generated using a voice recognition system and there may be incorrect words, spelling or punctuation that were not noted when reviewing the office note prior to saving.
[2019-07-16] MEDS: Pravastatin 80 MG Tablet PO (21:31)
[2019-07-16] MEDS: Calcium Carb/Vitamin D 1 TABLET Tablet 2 TABLET PO (21:31)
[2019-07-16] MEDS: LORazepam 0.5 MG Tablet 0.25 MG PO (21:40)
[2019-07-16] MEDS: TICAGRELOR 90 MG TABLET 180 MG PO (21:40)
[2019-07-17] VITALS (25 sets, daily range): BP systolic 98–148; BP diastolic 57–83; PULSE 65–104; RESP 16–18; TEMP 36.6–36.9; O2SAT 95–100
[2019-07-17 05:30] LABS: Absolute Lymphocyte Count 1.32 X10^3/uL (0.83-4.51); Absolute Neutrophil Count 4.1 X10^3/uL (2.0-7.7); Basophil# 0.03 X10^3/uL; Basophil% 0.5 % (0-1); Eosinophil# 0.02 X10^3/uL; Eosinophils% 0.3 % (0-5); Hematocrit 37.3 % (37-47); Hemoglobin 12.4 g/dL (12.0-15.0); Lymphocyte # 1.32 X10^3/ul (4.0); Lymphocyte % 22.1 % (19-41); Mean Corp Hgb Conc 33.2 g/dL (32-36); Mean Corpuscular Hgb 30.6 pg (27.0-32.0); Mean Corpuscular Volume 92.1 fL (81-99); Monocyte# 0.54 X10^3/uL; NRBC Flagged by Analyzer 0 % (0-5); Neutrophil # 4.05 X10^3/uL (2.7-7.7); Neutrophil % 67.8 % (47-70); Platelet Count 308 K/mm3 (150-450); RBC Distribution Width CV 13.4 % (11.6-14.6); RBC Distribution Width SD 45.7 fl (35.1-43.9); Red Blood Count 4.05 M/mm3 (4.2-5.4)
[2019-07-17 05:54] LABS: Anion Gap 4 (5-15); BUN 13 mg/dL (7-18); BUN/Creat Ratio 15.7 RATIO (10-20); Chloride 95 mmol/L (98-107); Creatinine, Serum 0.83 mg/dL (0.55-1.02); EST Glomerular Filtration Rate 72 mL/min (>60); Est Glom Filt Rate - Afr Amer 87 mL/min (>60); Glucose 104 mg/dL (74-106); Potassium 3.8 mmol/L (3.5-5.1); Sodium Level 130 mmol/L (136-145)
--- NOTE | 2019-07-17 05:55 | EKG12_ITS ---
Test Reason : AM EKG Blood Pressure : / mmHG Vent. Rate : 064 BPM Atrial Rate : 064 BPM P-R Int : 174 ms QRS Dur : 090 ms QT Int : 412 ms P-R-T Axes : 063 040 063 degrees QTc Int : 425 ms Normal sinus rhythm Minimal voltage criteria for LVH, may be normal variant Septal infarct , age undetermined Abnormal ECG When compared with ECG of 16-JUL-2019 16:35, MANUAL COMPARISON REQUIRED, DATA IS UNCONFIRMED Confirmed by JASE SELLERS, LESLIE ([id number]), greeting card editor CHATA BALBUENA ([id number]) on 07/21/2019 11:32:54 AM Referred By: Tanvi Todd Confirmed By:LESLIE LAGUNA MD
[2019-07-17] MEDS: amLODIPine 5 MG Tablet PO (06:05)
[2019-07-17] MEDS: TICAGRELOR 90 MG TABLET PO (06:05)
[2019-07-17] MEDS: Metoprolol(XL)Succ 50 MG Tablet PO (06:05)
--- NOTE | 2019-07-17 08:22 | PCM.PN.CARD ---
Subjectve: The patient is awake and alert. She denies ongoing chest discomfort at this time. Objective: Vital Signs Temp Pulse Resp BP Pulse Ox 97.9 F 73 16 138/79 H 95 07/17/19 06:00 07/17/19 07:11 07/17/19 06:00 07/17/19 06:00 07/17/19 06:00 Oxygen Flow Rate (L/min) 2 Oxygen Delivery Method Room Air Weight: 113 lb 15.664 oz Body Mass Index (BMI) 19.5 Intake and Output for Last 24 Hours 07/15/19 07/16/19 07/17/19 23:59 23:59 23:59 Intake Total 240 / 240 Balance 240 / 240 General: Awake, Alert, Oriented x 3, Cooperative, No Acute Distress HEENT: Atraumatic, Normocephalic, PERRL, EOMI, Sclera Non Icteric Oral: Moist Mucosa Neck: Supple, Good ROM, No JVD Lungs: Clear to auscultation Cardiovascular: Regular Rhythm, Normal S1, Normal S2 Abdomen: Bowel Sounds Present, Soft, Non Tender Extremities: No edema Neurological: No Focal Motor or Sensory Deficit Psych/Mental Status: Appropriate 07/16/19 10:41: WBC 4.4, RBC 3.59 L, Hgb 12.5, Hct 34.5 L, MCV 96.1, MCH 34.8 H, MCHC 36.2 H, Plt Count 323, MPV 8.8, Immature Gran % (Auto) 0.200, Neut % (Auto) 66.3, Lymph % (Auto) 24.4, [place] % (Auto) 7.7, Eos % (Auto) 0.7, Baso % (Auto) 0.7, Absolute Neuts (auto) 2.9, Nucleated RBC % 0 07/16/19 10:41: Sodium Cancelled, Potassium Cancelled, Chloride Cancelled, Carbon Dioxide Cancelled, Anion Gap Cancelled, BUN Cancelled, Creatinine Cancelled, Est GFR (MDRD) Af Amer Cancelled, Est GFR (MDRD) Non-Af Cancelled, BUN/Creatinine Ratio Cancelled, Glucose Cancelled, Calcium Cancelled, Troponin I Cancelled 07/16/19 12:13: APTT 29.2 07/16/19 12:13: Sodium 131 L, Potassium 3.9, Chloride 96 L, Carbon Dioxide 28.0, Anion Gap 7, BUN 12, Creatinine 0.74, Est GFR (MDRD) Af Amer 98, Est GFR (MDRD) Non-Af 81, BUN/Creatinine Ratio 16.1, Glucose 104, Calcium 8.5, Troponin I < 0.015 07/16/19 17:20: Troponin I < 0.015 07/16/19 20:30: Troponin I < 0.015 07/16/19 22:30: Troponin I < 0.015 07/17/19 05:20: WBC 6.0, RBC 4.05 L, Hgb 12.4, Hct 37.3, MCV 92.1, MCH 30.6, MCHC 33.2, Plt Count 308, MPV 8.0, Immature Gran % (Auto) 0.300, Neut % (Auto) 67.8, Lymph % (Auto) 22.1, [place] % (Auto) 9.0, Eos % (Auto) 0.3, Baso % (Auto) 0.5, Absolute Neuts (auto) 4.1, Nucleated RBC % 0 07/17/19 05:20: Sodium 130 L, Potassium 3.8, Chloride 95 L, Carbon Dioxide 31.0, Anion Gap 4 L, BUN 13, Creatinine 0.83, Est GFR (MDRD) Af Amer 87, Est GFR (MDRD) Non-Af 72, BUN/Creatinine Ratio 15.7, Glucose 104, Calcium 9.0 Rhythm: Sinus rhythm EKG: Sinus rhythm; no acute ECG changes ECHO: Preliminary evaluation: Left ventricle: Overall preserved left ventricular wall motion and systolic function; no obvious elevation of right-sided pressures appreciated; no obvious pericardial effusion appreciated; full and final report pending Medical Necessity - Tobacco Use Smoking Status: Never smoker Tobacco Use: Non-smoker Assessment/Plan 1. Chest pain/accelerating angina pectoris The patient presents with symptoms that are concerning for accelerating angina pectoris. She has had a history in the past of non-angiographically significant CAD. She has undergone noninvasive evaluation earlier this year with a pharmacologic stress nuclear imaging study which was considered negative for evidence of inducible myocardial ischemia. She presents back now with ongoing chest discomfort and associated symptoms concerning for accelerating angina pectoris. Her troponin I levels have remained negative. Her ECG is demonstrated no acute ECG changes. Her preliminary echocardiographic findings are as noted above. At the present time she will proceed with diagnostic cardiac catheterization to reassess her coronary anatomy to assist with ongoing diagnosis and care. 2. CAD Again she has had a history of non-angiographically significant appearing CAD. She does need to continue evaluation and care as noted above. She will continue risk factor evaluation care as well as deemed appropriate. 3. Takotsubo syndrome She has had a history of this syndrome in the past. She has been evaluated noninvasively and invasively in the past. Her overall LV systolic function has been preserved based upon her most recent noninvasive studies. She has undergone noninvasive evaluation with cardiac enzymes, alert cardiogram, and echocardiogram as noted above. She will continue evaluation care with diagnostic cardiac catheterization. 4. Pericardial effusion status post pericardial window She has had a history, during her head neck carcinoma, pericardial effusion. At that time she underwent pericardial window placement. She has had no obvious recurrent effusion. She states in some ways her symptoms feel as if he has had a recurrence of her pericardial effusion. Her chest x-ray does not suggest an increased cardiac silhouette size. Her echocardiogram does not appear to suggest any obvious ongoing pericardial effusion. 5. Hyperlipidemia She will continue medical management as deemed appropriate. 6. Hypertension She will continue to have her blood pressure monitored. She is known to have intermittent spikes in her heart rate and blood pressure. She has been evaluated for such multiple times in the past both locally and at other facilities by cardiology and endocrinology for underlying hormonal issues such as pheochromocytoma, etc. Thus far she has received no definitive diagnosis. She will continue medical management as deemed appropriate. 7. COPD She is concerned that her pulmonary disease process may be progressing and this may be contributing to some of her symptoms as well. This may need to be reassessed by her primary care physician and/or pulmonology. 8. Head neck carcinoma She has a history of remote head neck carcinoma which she states is over 9 years ago. She states she no longer requires yearly follow-up with her oncologist. The above was discussed with the patient and her spouse. This note was generated using a voice recognition system and there may be incorrect words, spelling or punctuation that were not noted when reviewing the office note prior to saving.
--- NOTE | 2019-07-17 09:44 | CL.D_ITS ---
Patient Name: ALEXY DOMINGUEZ Study Date: 07/17/2019 Performing: Malcolm Hughes MD Ht: 64 inches 163 cm : 1945 Wt: 114.8 lbs 52 kg Age: 73 Gender: female BSA: 1.55 PROCEDURE(S) PERFORMED [id number]/LV CLINICAL PROFILE AND INDICATIONS Indications: Worsening Angina, Suspected CAD Heart Failure: None Stress/Imaging Stress/Image Study Performed: No Angina Classification Anginal Classification w/in 2 Weeks: CCS III CAD Presentations: Unstable angina. CONCLUSIONS Elevated Left Ventricular End Diastolic Pressure Normal LV size, wall motion,and systolic function LVEF: by LV gram 65 % Single vessel CAD of the RCA (mild luminal irregularities) Comment: Initial RCA angiography with concern of possible catheter tipped coronary artery vasospasm w hich s/p reevaluation without NTG IC and with NTG IC (200 mcg) appeared resolved with no obvious resi dual angiographically significant appear disease RECOMMENDATIONS Risk factor modification Medical therapy DESCRIPTION OF PROCEDURE The patient arrived to the procedure lab. The risks and benefits of the procedure as well as a full d escription of our services here and current unavailability of surgical backup were fully explained to the patient and/or their significant other prior to the catheterization. The Timeout was completed, verifying the correct patient and procedure. The patient's procedural site was prepped and draped in the usual fashion. Local anesthetic was given subcutaneously to right radial region with Lidocaine 2% . Using a modified Seldinger technique, arterial access was obtained via the right radial artery, a 6 Fr sheath was inserted. Right Coronary Artery selective angiography was then performed in multiple v iews using a 5 Fr. 4.0 Cherry Log catheter. Left Coronary Artery selective angiography was performed in mu ltiple views using a 5 Fr. 4.0 Cherry Log catheter. Right Coronary Artery selective angiography was then p erformed in multiple views using a 5 Fr. 4.0 Cherry Log catheter. Left Ventriculography was performed in BANSAL projection using a 5 Fr. Pigtail catheter. LV to AO pullback pressures were then rec orded.The arterial sheath was pulled and a TR Band was applied for hemostasis 14cc air CORONARY ANGIOGRAPHY DOMINANCE: Right Dominant LEFT HEART ASSESSMENT Left Ventricular Ejection Fraction: by LV Gram 65 % Normal LV wall motion Elevated Left Ventricular End Diastolic Pressure LVEDP: 14 mmHg LEFT MAIN: Angiographically normal LEFT ANTERIOR DESCENDING ARTERY: Angiographically normal CIRCUMFLEX ARTERY: Angiographically normal RIGHT CORONARY ARTERY: PROX RCA: Mild luminal irregularities MID RCA: Mild luminal irregularities AORTIC ROOT: Angiographically normal COMPLICATIONS No Complications PROCEDURE MEDICATIONS Versed 1 mg IV Fentanyl 50 mcg IV Fentanyl 50 mcg IV Versed 1 mg IV Oxygen: 2 L/min via nasal cannula Baby Aspirin (81mg) 1 Tabs PO @ 07/17/2019 08:26:21 Heparin diluted in 23cc Heparinized saline. Patient given 10cc IA of this solution. 07/17/2019 08:44 :05 Nitro 200 mcg IC 07/17/2019 08:52:29 Verapamil 2.5mg, Ntg 100mcgs, 2000 units of Heparin diluted in 23cc Heparinized saline. Patient give n 10cc IA of this solution. 07/17/2019 08:44:05 SUMMARY OF HEMODYNAMIC DATA Time AIR REST ECG 08:23:25 AO 123/84 (104) SA 08:46:47 LV 135/-3, 20 09:00:15 LV 127/0, 14 09:00:21 LV 147/-5, 15 09:01:20 LV 148/-5, 10 09:01:25 LVp 146/-4, 11 09:01:31 AOp 149/72 (108) 09:01:36 Signed By Malcolm Hughes MD On 07/17/2019 09:43:17 Malcolm Hughes MD
[2019-07-17] MEDS: 0.9% Normal Saline 1,000 ML 75 ML IV ×2 (09:45→18:19)
--- NOTE | 2019-07-17 09:56 | NURSING ---
BRUISE NOTED TO WRIST. HEMATOMA IN MANAGER THERAPY. SITE SOFT NOW.
[2019-07-17] MEDS: Raloxifene HCl 60 MG Tablet PO (10:34)
[2019-07-17] MEDS: Isosorbide Mononitrate 30 MG Tablet PO (10:34)
[2019-07-17] MEDS: Famotidine 20 MG Tablet PO (10:34)
[2019-07-17] MEDS: amLODIPine 10 MG Tablet PO (10:34)
[2019-07-17] MEDS: Pantoprazole Sodium 40 MG Tablet PO (10:34)
--- NOTE | 2019-07-17 13:20 | DCINST_ITS ---
- Discharge Diagnoses Current Active Problems: Current Active and Chronic Problems (Last Reviewed 07/15/19 @ 15:52 by NAIMA Sierra) Chest pain (Acute) CAD in [place] artery (Chronic) S/P pericardial window creation (Chronic) You will use the following diet at home:: No restrictions Discharge Activity: Return to Normal Activity Call your doctor if you observe: Shortness of breath, Dizziness, Fainting spells, Chest pain Allergies/Adverse Reactions: Allergies codeine Adverse Reaction (Verified 07/16/19 10:29) HEART RACES indomethacin [From Indocin] Adverse Reaction (Verified 07/16/19 10:29) Abd cramps/diarrhea indomethacin sodium [From Indocin] Adverse Reaction (Verified 07/16/19 10:29) Abd cramps/diarrhea levofloxacin [From Levaquin] Adverse Reaction (Verified 07/16/19 10:29) INCREASED BLOOD PRESSURE nitrofurantoin [From Macrobid] Adverse Reaction (Verified 07/16/19 10:29) Nausea/Vom/Diarrhea propoxyphene napsylate [From Darvocet-N 100] Adverse Reaction (Verified 07/16/19 10:29) PASSES OUT Medications to take at Discharge Calcium Carb/Vitamin D3/Vit K1 [Citracal Soft Chew] 2 ea PO QHS 12/08/14 Lorazepam [Ativan] 0.25 mg PO DAILY PRN PRN 12/08/14 Pravastatin [Pravachol] 80 mg PO QHS 12/08/14 Albuterol Inhaler [Ventolin Hfa] 1 - 2 puff INHALATION Q6H PRN PRN #1 inhaler 05/30/17 cranberry fruit concentrate 250 mg chewable tablet 250 mg PO DAILY tab 10/29/17 levocetirizine 5 mg tablet 5 mg PO QHS PRN tab 10/29/17 ranitidine 150 mg tablet 150 mg PO DAILY tab 10/29/17 sucralfate 1 gram tablet 1 gm PO QHS PRN tab 10/29/17 Pantoprazole Sodium 40 mg PO DAILY 10/15/18 Raloxifene HCl [Evista] 60 mg PO DAILY 10/15/18 metoprolol succinate ER 50 mg tablet,extended release 24 hr 50 mg PO DAILY #90 tab 03/05/19 Acetaminophen [Tylenol Arthritis] 650 - 1,300 mg PO QHS PRN PRN 07/16/19 Nitroglycerin (INPATIENT USE) [Nitrostat] 0.4 mg SUBLINGUAL Q5M PRN 07/16/19 Amlodipine [Norvasc] 10 mg PO DAILY #30 tab 07/17/19 Isosorbide Mononitrate [Imdur] 30 mg PO DAILY #30 tab 07/17/19 The following prescriptions were given: Isosorbide Mononitrate [Imdur] 30 mg PO DAILY #30 tab Transmission Status: Pending to [facility] Amlodipine [Norvasc] 10 mg PO DAILY #30 tab Transmission Status: Pending to [facility] Primary Care Physician: Malcolm Mariscal MD [Primary Care Provider] - Please follow up with your Primary Care Physician in: 1 Week Test Results: Test results from this visit will be discussed in further detail at your follow- up appointment, if applicable. Please Follow Up With: Malcolm Hughes MD When: As scheduled 10/08/2019 Please Follow Up With: Jose Daniel Sheppard DO - Pulmonary Medicine When: 1-2 Weeks Please Follow Up With: Tanya Haas MD - General Surgery When: Call for outpatient follow up/upper and lower scope Proposed Discharge Date: 07/17/19
--- NOTE | 2019-07-17 13:56 | PHA.DC.MC ---
Pharmacy Service has performed discharge medication reconciliation and counseling for this patient. 1. ISOSORBIDE MONONITRATE 30MG PO DAILY The patient's discharge medication list was reviewed for discrepancies and discrepancies were resolved. Home Medications Calcium Carb/Vitamin D3/Vit K1 [Citracal Soft Chew] 2 ea PO QHS 12/08/14 Lorazepam [Ativan] 0.25 mg PO DAILY PRN PRN 12/08/14 Pravastatin [Pravachol] 80 mg PO QHS 12/08/14 Albuterol Inhaler [Ventolin Hfa] 1 - 2 puff INHALATION Q6H PRN PRN #1 inhaler 05/30/17 cranberry fruit concentrate 250 mg chewable tablet 250 mg PO DAILY tab 10/29/17 levocetirizine 5 mg tablet 5 mg PO QHS PRN tab 10/29/17 ranitidine 150 mg tablet 150 mg PO DAILY tab 10/29/17 sucralfate 1 gram tablet 1 gm PO QHS PRN tab 10/29/17 Pantoprazole Sodium 40 mg PO DAILY 10/15/18 Raloxifene HCl [Evista] 60 mg PO DAILY 10/15/18 metoprolol succinate ER 50 mg tablet,extended release 24 hr 50 mg PO DAILY #90 tab 03/05/19 Acetaminophen [Tylenol Arthritis] 650 - 1,300 mg PO QHS PRN PRN 07/16/19 Nitroglycerin (INPATIENT USE) [Nitrostat] 0.4 mg SUBLINGUAL Q5M PRN 07/16/19 Amlodipine [Norvasc] 10 mg PO DAILY #30 tab 07/17/19 Isosorbide Mononitrate [Imdur] 30 mg PO DAILY #30 tab 07/17/19 The patient was counseled on the following discharge medications and changes in medications for homegoing were reviewed. The Reason for Use, instructions for use, and potential side effects were reviewed for all new medications. The patient's questions regarding all of their medications were answered. The patient was able to verbally demonstrate an understanding of their discharge medications.
[2019-07-17] MEDS: Acetaminophen 325 MG Tablet 650 MG PO (15:18)
--- NOTE | 2019-07-17 16:03 | DS.PCM_ITS ---
<Maegan Figueroa - Last Filed: 07/17/19 13:34> Discharge Date and Diagnosis Date of Admission: 07/16/19 Date of Discharge: 07/17/19 - Primary Discharge Diagnosis Active and Suspected Problems (Last Reviewed 07/15/19 @ 15:52 by NAIMA Sierra) 1. Noncardiac chest pain, ACS ruled out 2. History of Takotsubo cardiomyopathy 3. Nonobstructive CAD 4. History of asthma/COPD 5. Kyphosis 6. Hypertension 7. Hyperlipidemia 8. GERD 9. 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 Chris Morse for recurrent pericardial effusion COPD (chronic obstructive pulmonary disease) (Chronic) Hyperlipidemia (Chronic) History of non-ST elevation myocardial infarction (NSTEMI) (Chronic) Takotsubo cardiomyopathy (Chronic) History of left heart catheterization (Chronic) 12/05/2006 @ [facility] per Dr. Hughes; 12/11/[address] Narvaez@ [facility] Atherosclerotic heart disease of [place] coronary artery without angina pectoris (Chronic) Nonobstructive CAD per cath 12/11/[address] Narvaez [facility] Asthma (Chronic) Benign essential HTN (Chronic) Osteoporosis (Chronic) History of coronary vasospasm (Chronic) Hospital Course and Treatment Dr. Hughes- Cardiology Operations: None Procedures: 2-D Echocardiogram, Cardiac catheterization Summary of Care Provided: The patient is a 73 year old F admitted 07/16/2019 due to chest pain. 1. Noncardiac chest pain, ACS ruled out-troponin negative. EKG without ST-T changes. Patient underwent cardiac catheterization which demonstrated nonobs tructive coronary arteries. Cardiology consulted. Patient follows with Dr. Hughes. Continue statin, metoprolol, added on isosorbide. Continue outpatient follow-up with cardiology. Referred to pulmonary medicine and general surgery for further evaluation of noncardiac chest pain. 2. History of Takotsubo cardiomyopathy-echocardiogram demonstrated an EF of 65%. 3. Nonobstructive CAD-patient underwent cardiac catheterization which demonstrated single-vessel CAD of RCA with mild luminal irregularities. Continue medical therapy. 4. History of asthma/COPD-no acute exacerbation. Continue as needed albuterol aerosol. Referred to pulmonary medicine for further evaluation. 5. Kyphosis-complicates care. May be contributing to #1 as well as ongoing dyspnea. Outpatient follow-up. 6. Hypertension-stable, continue amlodipine, metoprolol, isosorbide. 7. Hyperlipidemia-continue statin regimen. 8. GERD-on PPI, ranitidine and sucralfate. Refer to general surgery for further GI evaluation. 9. History of head and neck carcinoma- in remission. Patient seen and examined prior to discharge. Physical assessment as noted below. Patient is stable for discharge with follow up recommendations as noted above. This patient was seen by ADRIANO Jones under the supervision of Dr. Hauser. - Physical Exam Vitals/I&O's: Vital Signs Temp Pulse Resp BP Pulse Ox 98.3 F 69 18 108/58 L 98 07/17/19 13:00 07/17/19 13:00 07/17/19 13:00 07/17/19 13:00 07/17/19 13:00 Oxygen Flow Rate (L/min) 2 Oxygen Delivery Method Room Air Weight: 113 lb 15.664 oz Body Mass Index (BMI) 19.5 Intake and Output for Last 24 Hours 07/15/19 07/16/19 07/17/19 23:59 23:59 23:59 Intake Total 240 / 240 701.25 / 701.25 Balance 240 / 240 701.25 / 701.25 General: Alert, Oriented x3, Cooperative HEENT: Atraumatic, PERRLA, EOMI, Normocephalic Neck: Supple, No JVD, Negative Carotid Bruits Lungs: Clear to auscultation, Normal air movement Cardiovascular: Regular rate, Regular Rhythm, Normal S1, Normal S2, No murmurs Abdomen: Bowel Sounds Present, Soft, Non Tender, Non-Distended Extremities: No edema, Capillary Refill Less than 3 Seconds Skin: No rashes, No breakdown Musculoskeletal: No Tenderness to Palpation of Joints or Extremities, Cachexia, - - Kyphosis Neurological: Cranial nerves II-XII grossly intact, Neuro grossly intact Psych/Mental Status: Normal Affect, Appropriate Laboratory Results 07/16/19 17:20: Troponin I < 0.015 07/16/19 20:30: Troponin I < 0.015 07/16/19 22:30: Troponin I < 0.015 07/17/19 05:20: WBC 6.0, RBC 4.05 L, Hgb 12.4, Hct 37.3, MCV 92.1, MCH 30.6, MCHC 33.2, RDW Std Deviation 45.7 H, RDW Coeff of Dianne 13.4, Plt Count 308, MPV 8.0, Immature Gran % (Auto) 0.300, Neut % (Auto) 67.8, Lymph % (Auto) 22.1, [place] % (Auto) 9.0, Eos % (Auto) 0.3, Baso % (Auto) 0.5, Absolute Neuts (auto) 4.1, Absolute Lymphs (auto) 1.32, Nucleated RBC % 0 07/17/19 05:20: Sodium 130 L, Potassium 3.8, Chloride 95 L, Carbon Dioxide 31.0, Anion Gap 4 L, BUN 13, Creatinine 0.83, Estim Creat Clear Calc 50.00, Est GFR (MDRD) Af Amer 87, Est GFR (MDRD) Non-Af 72, BUN/Creatinine Ratio 15.7, Glucose 104, Calcium 9.0 Current Medications Acetaminophen (Tylenol) 650 mg PO QHS PRN PRN Reason: PAIN SCORE 1-10/10 Albuterol Sulfate (Ventolin Aerosols) 2.5 mg INHALATION Q4H PRN PRN Reason: Wheezing Amlodipine Besylate (Norvasc) 10 mg PO DAILY [facility] Last Admin: 07/17/19 10:34 Dose: 10 mg Documented by: Calcium/Vitamin D (Os-Dwight 500mg + D) 2 tablet PO QHS [facility] Last Admin: 07/16/19 21:31 Dose: 2 tablet Documented by: Dextrose (D50w Syringe) 0 gm IV X1 PRN; Protocol PRN Reason: Hypoglycemia Enoxaparin Sodium (Lovenox) 40 mg SC DAILY@1000 [facility] Last Admin: 07/17/19 10:35 Dose: Not Given Documented by: Famotidine (Pepcid) 20 mg PO DAILY [facility] Last Admin: 07/17/19 10:34 Dose: 20 mg Documented by: Glucagon () 1 mg IM .X1 PRN PRN Reason: Hypoglycemia Sodium Chloride () 1,000 mls @ 0 mls/hr IV .Q0M [facility] Sodium Chloride () 1,000 mls @ 75 mls/hr IV .[id number] [facility] Last Infusion: 07/17/19 13:06 Dose: 0 mls/hr Documented by: Isosorbide Mononitrate (Imdur) 30 mg PO DAILY [facility] Last Admin: 07/17/19 10:34 Dose: 30 mg Documented by: Loratadine (Claritin) 5 mg PO QHS PRN PRN Reason: ALLERGIES Lorazepam (Ativan) 0.25 mg PO DAILY PRN PRN PRN Reason: ANXIETY Last Admin: 07/16/19 21:40 Dose: 0.25 mg Documented by: Metoprolol Succinate (Toprol Xl (Beta Rasheeda)) 50 mg PO DAILY [facility] Last Admin: 07/17/19 06:05 Dose: 50 mg Documented by: Morphine Sulfate () 2 mg IV Q3H PRN PRN PRN Reason: Pain Score 6-10/10 Nitroglycerin (Nitrostat) 0.4 mg SUBLINGUAL Q5M PRN PRN Reason: Chest Pain Pantoprazole Sodium (Protonix) 40 mg PO DAILY [facility] Last Admin: 07/17/19 10:34 Dose: 40 mg Documented by: Pravastatin Sodium (Pravachol) 80 mg PO QHS [facility] Last Admin: 07/16/19 21:31 Dose: 80 mg Documented by: Raloxifene HCl (Evista) 60 mg PO DAILY [facility] Last Admin: 07/17/19 10:34 Dose: 60 mg Documented by: Sodium Chloride () 10 - 40 ml IV UD PRN PRN Reason: SALINE FLUSH Sucralfate (Carafate) 1 gm PO QHS PRN PRN Reason: reflux Discharge Diet: No Restrictions Discharge Activity: Return to Normal Activity Call your doctor if you observe: Shortness of breath, Dizziness, Fainting spells, Chest pain Home Medications: Medications to take at Discharge Calcium Carb/Vitamin D3/Vit K1 [Citracal Soft Chew] 2 ea PO QHS 12/08/14 Lorazepam [Ativan] 0.25 mg PO DAILY PRN PRN 12/08/14 Pravastatin [Pravachol] 80 mg PO QHS 12/08/14 Albuterol Inhaler [Ventolin Hfa] 1 - 2 puff INHALATION Q6H PRN PRN #1 inhaler 05/30/17 cranberry fruit concentrate 250 mg chewable tablet 250 mg PO DAILY tab 10/29/17 levocetirizine 5 mg tablet 5 mg PO QHS PRN tab 10/29/17 ranitidine 150 mg tablet 150 mg PO DAILY tab 10/29/17 sucralfate 1 gram tablet 1 gm PO QHS PRN tab 10/29/17 Pantoprazole Sodium 40 mg PO DAILY 10/15/18 Raloxifene HCl [Evista] 60 mg PO DAILY 10/15/18 metoprolol succinate ER 50 mg tablet,extended release 24 hr 50 mg PO DAILY #90 tab 03/05/19 Acetaminophen [Tylenol Arthritis] 650 - 1,300 mg PO QHS PRN PRN 07/16/19 Nitroglycerin (INPATIENT USE) [Nitrostat] 0.4 mg SUBLINGUAL Q5M PRN 07/16/19 Amlodipine [Norvasc] 10 mg PO DAILY #30 tab 07/17/19 Isosorbide Mononitrate [Imdur] 30 mg PO DAILY #30 tab 07/17/19 Following Prescrptions Were Given to Patient: Isosorbide Mononitrate [Imdur] 30 mg PO DAILY #30 tab Transmission Status: Received by [facility] Amlodipine [Norvasc] 10 mg PO DAILY #30 tab Transmission Status: Received by [facility] Primary Care Physician: Malcolm Mariscal MD [Primary Care Provider] - Please follow up with your Primary Care Physician in: 1 Week Please Follow Up With: Malcolm Hughes MD When: As scheduled 10/08/2019 Please Follow Up With: Jose Daniel Sheppard DO - Pulmonary Medicine When: 1-2 Weeks Please Follow Up With: Tanya Haas MD - General Surgery When: Call for outpatient follow up/upper and lower scope Disposition: Home Minutes spent on discharge:: 35 Patient Condition:: Stable Medical Necessity - Tobacco Use Smoking Status: Never smoker Tobacco Use: Non-smoker Meaningful Use Info Meaningful Use Diagnoses (Choose all that apply): None applicable <Gregory Hauser - Last Filed: 07/17/19 16:02> Discharge Date and Diagnosis - Secondary Discharge Diagnosis Chronic Problems (Last Reviewed 07/15/19 @ 15:52 by NAIMA Sierra) CAD in [place] artery (Chronic) S/P pericardial window creation (Chronic) 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 Chris Morse for recurrent pericardial effusion COPD (chronic obstructive pulmonary disease) (Chronic) Hyperlipidemia (Chronic) History of non-ST elevation myocardial infarction (NSTEMI) (Chronic) Takotsubo cardiomyopathy (Chronic) History of left heart catheterization (Chronic) 12/05/2006 @ [facility] per Dr. Hughes; 12/11/[address] Narvaez@ [facility] Atherosclerotic heart disease of [place] coronary artery without angina pectoris (Chronic) Nonobstructive CAD per cath 12/11/[address] Narvaez [facility] Asthma (Chronic) Benign essential HTN (Chronic) Osteoporosis (Chronic) History of coronary vasospasm (Chronic) Hospital Course and Treatment Summary of Care Provided: This patient was seen in conjunction with Maegan BARAJAS. I have independently interviewed and examined the patient and reviewed pertinent history, examination findings, laboratory and plan of management. I have reviewed the note and agree with the documented findings with the few additional points. In brief, patient is admitted for chest pain. Chest pain came out to be noncardiac. Serial troponin enzymes were negative. EKG without ischemic ST-T changes. Furthermore, patient underwent cardiac cath which showed nonobstr uctive coronary artery disease. Patient was seen by newspaper publisher. Cardiac cath found mild irregularities in single-vessel RCA. Patient also has labile hypertension. Her blood pressure fluctuates. It was 148/83 and then it dropped 202/61 on antihypertensive medications. Last 1 blood pressure was systolic 140 as per the nurse. Patient also history of asthma/COPD and is advised to follow-up with pulmonary clinic with Dr. Sheppard. Has GERD and follow-up with general surgery for possible EGD I have discussed my assessment with Maegan BARAJAS and orders have been reviewed. [] Discharge medication reconciliation done. Discharge follow-up instructions completed. Discharge process discussed with the patient and all questions were answered to patient's satisfaction Subjective: Seen and examined. Had cardiac cath in the morning. Blood pressure was high therefore amlodipine and nitrate was increased. She felt dizzy and lightheaded blood pressure. Letter on, she recovered blood pressure on laying down. Seems anxious and worried. - Physical Exam Vitals/I&O's: Vital Signs Temp Pulse Resp BP Pulse Ox 98.3 F 69 18 108/58 L 98 07/17/19 13:00 07/17/19 13:00 07/17/19 13:00 07/17/19 13:00 07/17/19 13:00 Oxygen Flow Rate (L/min) 2 Oxygen Delivery Method Room Air Weight: 113 lb 15.664 oz Body Mass Index (BMI) 19.5 Intake and Output for Last 24 Hours 07/15/19 07/16/19 07/17/19 23:59 23:59 23:59 Intake Total 240 / 240 701.25 / 701.25 Balance 240 / 240 701.25 / 701.25 General: Alert, Oriented x3, Cooperative HEENT: Atraumatic, PERRLA, EOMI, Normocephalic Neck: Supple, No JVD, Negative Carotid Bruits Lungs: Clear to auscultation, Normal air movement, No rhonchi, No wheeze, No rales Cardiovascular: Regular rate, Regular Rhythm, Normal S1, Normal S2, No murmurs Abdomen: Bowel Sounds Present, Soft, Non Tender, Non-Distended Extremities: No edema, Capillary Refill Less than 3 Seconds Skin: No rashes, No breakdown Musculoskeletal: No Tenderness to Palpation of Joints or Extremities, Cachexia, - Neurological: Cranial nerves II-XII grossly intact, Deep Tendon Reflexes 2+/4 and Symmetrical, Neuro grossly intact, Motor Exam 5/5 strength throughout Psych/Mental Status: Normal Affect, Appropriate Laboratory Results 07/16/19 17:20: Troponin I < 0.015 07/16/19 20:30: Troponin I < 0.015 07/16/19 22:30: Troponin I < 0.015 07/17/19 05:20: WBC 6.0, RBC 4.05 L, Hgb 12.4, Hct 37.3, MCV 92.1, MCH 30.6, MCHC 33.2, RDW Std Deviation 45.7 H, RDW Coeff of Dianne 13.4, Plt Count 308, MPV 8.0, Immature Gran % (Auto) 0.300, Neut % (Auto) 67.8, Lymph % (Auto) 22.1, [place] % (Auto) 9.0, Eos % (Auto) 0.3, Baso % (Auto) 0.5, Absolute Neuts (auto) 4.1, A bsolute Lymphs (auto) 1.32, Nucleated RBC % 0 07/17/19 05:20: Sodium 130 L, Potassium 3.8, Chloride 95 L, Carbon Dioxide 31.0, Anion Gap 4 L, BUN 13, Creatinine 0.83, Estim Creat Clear Calc 50.00, Est GFR (MDRD) Af Amer 87, Est GFR (MDRD) Non-Af 72, BUN/Creatinine Ratio 15.7, Glucose 104, Calcium 9.0 Current Medications Acetaminophen (Tylenol) 650 mg PO QHS PRN PRN Reason: PAIN SCORE 1-10/10 Last Admin: 07/17/19 15:18 Dose: 650 mg Documented by: Albuterol Sulfate (Ventolin Aerosols) 2.5 mg INHALATION Q4H PRN PRN Reason: Wheezing Amlodipine Besylate (Norvasc) 10 mg PO DAILY [facility] Last Admin: 07/17/19 10:34 Dose: 10 mg Documented by: Calcium/Vitamin D (Os-Dwight 500mg + D) 2 tablet PO QHS [facility] Last Admin: 07/16/19 21:31 Dose: 2 tablet Documented by: Dextrose (D50w Syringe) 0 gm IV X1 PRN; Protocol PRN Reason: Hypoglycemia Enoxaparin Sodium (Lovenox) 40 mg SC DAILY@1000 [facility] Last Admin: 07/17/19 10:35 Dose: Not Given Documented by: Famotidine (Pepcid) 20 mg PO DAILY [facility] Last Admin: 07/17/19 10:34 Dose: 20 mg Documented by: Glucagon () 1 mg IM .X1 PRN PRN Reason: Hypoglycemia Sodium Chloride () 1,000 mls @ 0 mls/hr IV .Q0M [facility] Sodium Chloride () 1,000 mls @ 75 mls/hr IV .[id number] [facility] Last Infusion: 07/17/19 13:06 Dose: 0 mls/hr Documented by: Isosorbide Mononitrate (Imdur) 30 mg PO DAILY [facility] Last Admin: 07/17/19 10:34 Dose: 30 mg Documented by: Loratadine (Claritin) 5 mg PO QHS PRN PRN Reason: ALLERGIES Lorazepam (Ativan) 0.25 mg PO DAILY PRN PRN PRN Reason: ANXIETY Last Admin: 07/16/19 21:40 Dose: 0.25 mg Documented by: Metoprolol Succinate (Toprol Xl (Beta Rasheeda)) 50 mg PO DAILY [facility] Last Admin: 07/17/19 06:05 Dose: 50 mg Documented by: Morphine Sulfate () 2 mg IV Q3H PRN PRN PRN Reason: Pain Score 6-10/10 Nitroglycerin (Nitrostat) 0.4 mg SUBLINGUAL Q5M PRN PRN Reason: Chest Pain Pantoprazole Sodium (Protonix) 40 mg PO DAILY [facility] Last Admin: 07/17/19 10:34 Dose: 40 mg Documented by: Pravastatin Sodium (Pravachol) 80 mg PO QHS [facility] Last Admin: 07/16/19 21:31 Dose: 80 mg Documented by: Raloxifene HCl (Evista) 60 mg PO DAILY [facility] Last Admin: 07/17/19 10:34 Dose: 60 mg Documented by: Sodium Chloride () 10 - 40 ml IV UD PRN PRN Reason: SALINE FLUSH Sucralfate (Carafate) 1 gm PO QHS PRN PRN Reason: reflux Code Visit OBSV E&M: 37009 Observation care discharge
--- NOTE | 2019-07-17 18:13 | PCM.PROGNOTE ---
<Maegan Figueroa - Last Filed: 07/17/19 18:18> Subjective: Patient seen and examined. While getting patient ready for discharge, she had episode of presyncope and blood pressure dropped. Cardiology notified. Discontinued isosorbide and amlodipine reduced to 5 mg daily. Will monitor blood pressure overnight and plan for discharge tomorrow. - Physical Exam Vitals/I&O's: Vital Signs Temp Pulse Resp BP Pulse Ox 98.1 F 70 18 119/70 95 07/17/19 16:03 07/17/19 16:08 07/17/19 16:03 07/17/19 16:08 07/17/19 16:03 Oxygen Flow Rate (L/min) 2 Oxygen Delivery Method Room Air Weight: 113 lb 15.664 oz Body Mass Index (BMI) 19.5 Orthostatic Vital Signs Start: 07/17/19 16:08 Freq: q24h Status: Active Protocol: Activity Type Activity Date Activity User E-Sign Co-Sign Detail Recorded Client Recorded Date Recorded By Document 07/17/19 16:08 EA [id number] 07/17/19 16:10 EA 07/17/19 16:08 Orthostatic Vitals Standing -Blood Pressure (90/60-120/80) 102/68 -Extremity Use Left Arm -Pulse Rate (60-100) 104 H Sitting -Blood Pressure (90/60-120/80) 112/73 -Extremity Use Left Arm -Pulse Rate (60-100) 97 Lying -Blood Pressure (90/60-120/80) 119/70 -Extremity Use Left Arm -Pulse Rate (60-100) 70 Intake and Output for Last 24 Hours 07/15/19 07/16/19 07/17/19 23:59 23:59 23:59 Intake Total 240 / 240 701.25 / 701.25 Balance 240 / 240 701.25 / 701.25 General: Alert, Oriented x3, Cooperative HEENT: Atraumatic, PERRLA, EOMI, Normocephalic Neck: Supple, No JVD, Negative Carotid Bruits Lungs: Clear to auscultation, Normal air movement Cardiovascular: Regular rate, Regular Rhythm, Normal S1, Normal S2, No murmurs Abdomen: Bowel Sounds Present, Soft, Non Tender, Non-Distended Extremities: No clubbing, No cyanosis, No edema, Capillary Refill Less than 3 Seconds Skin: No rashes, No breakdown Musculoskeletal: No Tenderness to Palpation of Joints or Extremities, Cachexia Neurological: Cranial nerves II-XII grossly intact, Neuro grossly intact Psych/Mental Status: Normal Affect, Appropriate Laboratory Results 07/16/19 17:20: Troponin I < 0.015 07/16/19 20:30: Troponin I < 0.015 07/16/19 22:30: Troponin I < 0.015 07/17/19 05:20: WBC 6.0, RBC 4.05 L, Hgb 12.4, Hct 37.3, MCV 92.1, MCH 30.6, MCHC 33.2, RDW Std Deviation 45.7 H, RDW Coeff of Dianne 13.4, Plt Count 308, MPV 8.0, Immature Gran % (Auto) 0.300, Neut % (Auto) 67.8, Lymph % (Auto) 22.1, [place] % (Auto) 9.0, Eos % (Auto) 0.3, Baso % (Auto) 0.5, Absolute Neuts (auto) 4.1, Absolute Lymphs (auto) 1.32, Nucleated RBC % 0 07/17/19 05:20: Sodium 130 L, Potassium 3.8, Chloride 95 L, Carbon Dioxide 31.0, Anion Gap 4 L, BUN 13, Creatinine 0.83, Estim Creat Clear Calc 50.00, Est GFR (MDRD) Af Amer 87, Est GFR (MDRD) Non-Af 72, BUN/Creatinine Ratio 15.7, Glucose 104, Calcium 9.0 Current Medications Acetaminophen (Tylenol) 650 mg PO QHS PRN PRN Reason: PAIN SCORE 1-10/10 Last Admin: 07/17/19 15:18 Dose: 650 mg Documented by: Albuterol Sulfate (Ventolin Aerosols) 2.5 mg INHALATION Q4H PRN PRN Reason: Wheezing Amlodipine Besylate (Norvasc) 5 mg PO DAILY [facility] Calcium/Vitamin D (Os-Dwight 500mg + D) 2 tablet PO QHS [facility] Last Admin: 07/16/19 21:31 Dose: 2 tablet Documented by: Dextrose (D50w Syringe) 0 gm IV X1 PRN; Protocol PRN Reason: Hypoglycemia Enoxaparin Sodium (Lovenox) 40 mg SC DAILY@1000 [facility] Last Admin: 07/17/19 10:35 Dose: Not Given Documented by: Famotidine (Pepcid) 20 mg PO DAILY [facility] Last Admin: 07/17/19 10:34 Dose: 20 mg Documented by: Glucagon () 1 mg IM .X1 PRN PRN Reason: Hypoglycemia Sodium Chloride () 1,000 mls @ 75 mls/hr IV .[id number] [facility] Loratadine (Claritin) 5 mg PO QHS PRN PRN Reason: ALLERGIES Lorazepam (Ativan) 0.25 mg PO DAILY PRN PRN PRN Reason: ANXIETY Last Admin: 07/16/19 21:40 Dose: 0.25 mg Documented by: Metoprolol Succinate (Toprol Xl (Beta Rasheeda)) 50 mg PO DAILY [facility] Last Admin: 07/17/19 06:05 Dose: 50 mg Documented by: Morphine Sulfate () 2 mg IV Q3H PRN PRN PRN Reason: Pain Score 6-10/10 Nitroglycerin (Nitrostat) 0.4 mg SUBLINGUAL Q5M PRN PRN Reason: Chest Pain Pantoprazole Sodium (Protonix) 40 mg PO DAILY [facility] Last Admin: 07/17/19 10:34 Dose: 40 mg Documented by: Pravastatin Sodium (Pravachol) 80 mg PO QHS [facility] Last Admin: 07/16/19 21:31 Dose: 80 mg Documented by: Raloxifene HCl (Evista) 60 mg PO DAILY [facility] Last Admin: 07/17/19 10:34 Dose: 60 mg Documented by: Sodium Chloride () 10 - 40 ml IV UD PRN PRN Reason: SALINE FLUSH Sucralfate (Carafate) 1 gm PO QHS PRN PRN Reason: reflux Medical Necessity - Tobacco Use Smoking Status: Never smoker Tobacco Use: Non-smoker Assessment/Plan All Active Problems (Last Reviewed 07/15/19 @ 15:52 by NAIMA Sierra) Chest pain (Acute) Tongue cancer (Resolved) 1. Noncardiac chest pain, ACS ruled out-troponin negative. EKG without ST-T changes. Patient underwent cardiac catheterization which demonstrated nonobstructive coronary arteries. Cardiology consulted. Patient follows with Dr. Hughes. Continue statin, metoprolol. Initially added on isosorbide however patient blood pressure unable to tolerate. Will refer to pulmonary medicine and general surgery for further evaluation of noncardiac chest pain. Monitor blood pressure overnight and continue gentle IV fluids. 2. History of Takotsubo cardiomyopathy-echocardiogram demonstrated an EF of 65%. 3. Nonobstructive CAD-patient underwent cardiac catheterization which demonstrated single-vessel CAD of RCA with mild luminal irregularities. Continue medical therapy. 4. History of asthma/COPD-no acute exacerbation. Continue as needed albuterol aerosol. Referred to pulmonary medicine for further evaluation. 5. Kyphosis-complicates care. May be contributing to #1 as well as ongoing dyspnea. Outpatient follow-up. 6. Hypertension-stable, continue amlodipine, metoprolol. 7. Hyperlipidemia-continue statin regimen. 8. GERD-on PPI, ranitidine and sucralfate. Refer to general surgery for further GI evaluation as outpatient. 9. History of head and neck carcinoma- in remission. DVT prophylaxis- Lovenox sc This patient was seen by ADRIANO Jones under the supervision of Dr. Hauser. <Gregory Hauser - Last Filed: 07/18/19 15:38> Subjective: Patient seen and examined. She was mildly dizzy and lightheaded and blood pressure dropped. Earlier patient amlodipine was increased to 10 mg. Isosorbide mononitrate and amlodipine held. Amlodipine reduced to 5 mg daily - Physical Exam Vitals/I&O's: Vital Signs Temp Pulse Resp BP Pulse Ox 98.4 F 88 18 143/79 H 97 07/18/19 09:14 07/18/19 09:14 07/18/19 09:14 07/18/19 09:14 07/18/19 09:14 Oxygen Flow Rate (L/min) 2 Oxygen Delivery Method Room Air Weight: 113 lb 15.664 oz Body Mass Index (BMI) 19.5 Intake and Output for Last 24 Hours 07/16/19 07/17/19 07/18/19 23:59 23:59 23:59 Intake Total 240 / 240 941.25 / 941.25 1277.5 / 1277.5 Balance 240 / 240 941.25 / 941.25 1277.5 / 1277.5 General: Alert, Oriented x3, Cooperative HEENT: Atraumatic, PERRLA, EOMI, Normocephalic Neck: Supple, No JVD, Negative Carotid Bruits Lungs: Clear to auscultation, Normal air movement Cardiovascular: Regular rate, Regular Rhythm, Normal S1, Normal S2, No murmurs Abdomen: Bowel Sounds Present, Soft, Non Tender, Non-Distended Extremities: No edema, Capillary Refill Less than 3 Seconds Skin: No rashes, No breakdown Musculoskeletal: No Tenderness to Palpation of Joints or Extremities, Arthritic Changes, Cachexia, Muscle Wasting Neurological: Cranial nerves II-XII grossly intact, Deep Tendon Reflexes 2+/4 and Symmetrical, Neuro grossly intact Psych/Mental Status: Normal Affect, Appropriate Laboratory Results 07/18/19 06:45: Hgb 10.8 L, Hct 33.0 L 07/18/19 06:45: Sodium 135 L, Potassium 3.7, Chloride 103, Carbon Dioxide 28.0, Anion Gap 4 L, BUN 14, Creatinine 0.74, Estim Creat Clear Calc 41.50, Est GFR (MDRD) Af Amer 98, Est GFR (MDRD) Non-Af 81, BUN/Creatinine Ratio 18.8, Glucose 102, Calcium 8.6 Assessment/Plan This patient was seen in conjunction with Maegan BARAJAS. I have independently interviewed and examined the patient and reviewed pertinent history, examination findings, laboratory and plan of management. I have reviewed the note and agree with the documented findings with the few additional points. In brief, patient is admitted for noncardiac chest pain. Acute coronary syndrome ruled out. Patient did not had significant ST-T changes on EKG. Patient furthermore underwent cardiac cath to be to initiate nonoperative coronary artery disease. Patient dropped blood pressure after she was given amlodipine and isosorbide mononitrate. Medications were temporarily held. Patient was given IV fluid and was discharged held. I have discussed my assessment with Maegan BARAJAS and orders have been reviewed. Code Visit Inpatient E&M: 62250 Subs Hosp L2
[2019-07-17] MEDS: Calcium Carb/Vitamin D 1 TABLET Tablet 2 TABLET PO (21:23)
[2019-07-17] MEDS: LORazepam 0.5 MG Tablet 0.25 MG PO (21:23)
[2019-07-17] MEDS: Pravastatin 80 MG Tablet PO (21:23)
[2019-07-18 03:08] VITALS: PULSE 71
[2019-07-18 03:20] VITALS: BP 122/70; PULSE 72; RESP 18; TEMP 36.8; O2SAT 98
[2019-07-18] MEDS: 0.9% Normal Saline 1,000 ML 75 ML IV (06:47)
[2019-07-18 06:52] VITALS: BP 151/77
[2019-07-18] MEDS: Morphine 2 MG/ML Syringe IV (06:55)
[2019-07-18 07:05] LABS: Hemoglobin 10.8 g/dL (12.0-15.0)
[2019-07-18 07:09] VITALS: PULSE 78
[2019-07-18 07:28] LABS: Anion Gap 4 (5-15); BUN 14 mg/dL (7-18); BUN/Creat Ratio 18.8 RATIO (10-20); Calcium,Total 8.6 mg/dL (8.5-10.1); Chloride 103 mmol/L (98-107); Creatinine, Serum 0.74 mg/dL (0.55-1.02); EST Glomerular Filtration Rate 81 mL/min (>60); Est Glom Filt Rate - Afr Amer 98 mL/min (>60); Glucose 102 mg/dL (74-106); Potassium 3.7 mmol/L (3.5-5.1); Sodium Level 135 mmol/L (136-145)
--- NOTE | 2019-07-18 08:13 | PN.CARD_ITS ---
Subjectve: The patient was to be released yesterday afternoon. After getting up and ambulating she felt dizzy and lightheaded and was noted to be transiently hy potensive. There was concern this may have been secondary to her additional medical therapy that she received earlier in the day for her hypertension and/or potentially a post procedure related vasovagal event. Thus it was elected to monitor the patient overnight, readjust her medications, and provide her with IV fluids. She states at this point in time she feels much better. She has been up and has not had any recurrent events. She denies any other ongoing acute episodes of chest discomfort or dyspnea. Objective: Vital Signs Temp Pulse Resp BP Pulse Ox 98.2 F 78 18 151/77 H 98 07/18/19 03:20 07/18/19 07:09 07/18/19 03:20 07/18/19 06:52 07/18/19 03:20 Oxygen Flow Rate (L/min) 2 Oxygen Delivery Method Room Air Weight: 113 lb 15.664 oz Body Mass Index (BMI) 19.5 Orthostatic Vital Signs Start: 07/17/19 16:08 Freq: q24h Status: Active Protocol: Activity Type Activity Date Activity User E-Sign Co-Sign Detail Recorded Client Recorded Date Recorded By Document 07/17/19 16:08 EDISON [id number] 07/17/19 16:10 EDISON 07/17/19 16:08 Orthostatic Vitals Standing -Blood Pressure (90/60-120/80) 102/68 -Extremity Use Left Arm -Pulse Rate (60-100) 104 H Sitting -Blood Pressure (90/60-120/80) 112/73 -Extremity Use Left Arm -Pulse Rate (60-100) 97 Lying -Blood Pressure (90/60-120/80) 119/70 -Extremity Use Left Arm -Pulse Rate (60-100) 70 Intake and Output for Last 24 Hours 07/16/19 07/17/19 07/18/19 23:59 23:59 23:59 Intake Total 240 / 240 941.25 / 941.25 1155 / 1155 Balance 240 / 240 941.25 / 941.25 1155 / 1155 General: Awake, Alert, Oriented x 3, Cooperative, No Acute Distress HEENT: Atraumatic, Normocephalic, PERRL, EOMI, Sclera Non Icteric Oral: Moist Mucosa Neck: Supple, Good ROM, No JVD Lungs: Clear to auscultation Cardiovascular: Regular Rhythm, Normal S1, Normal S2 Vascular: Normal Radial Pulses Abdomen: Bowel Sounds Present, Soft, Non Tender Extremities: No edema Neurological: No Focal Motor or Sensory Deficit Psych/Mental Status: Appropriate 07/18/19 06:45: Hgb 10.8 L, Hct 33.0 L 07/18/19 06:45: Sodium 135 L, Potassium 3.7, Chloride 103, Carbon Dioxide 28.0, Anion Gap 4 L, BUN 14, Creatinine 0.74, Est GFR (MDRD) Af Amer 98, Est GFR (MDRD) Non-Af 81, BUN/Creatinine Ratio 18.8, Glucose 102, Calcium 8.6 Rhythm: Sinus rhythm Medical Necessity - Tobacco Use Smoking Status: Never smoker Tobacco Use: Non-smoker Assessment/Plan 1. Chest pain/accelerating angina pectoris At the present time the etiology of her chest discomfort does not appear to be related to underlying atherosclerotic coronary artery disease or ongoing pericardial disease. There is concern as to whether or not this can be gastrointestinal related based upon the patient's history. Thus it was felt reasonable the patient be referred back to gastroenterology for further evaluation care. She states she has been evaluated by Dr. Sage in the past. Thus a referral back to his practice would be a reasonable approach to further evaluate her from a noncardiac standpoint. 2. CAD Her cardiac catheterization does not demonstrate any angiographically significant appearing CAD. She will continue risk factor evaluation care as well as deemed appropriate. 3. Takotsubo syndrome She has had a history of this syndrome in the past. She has been evaluated noninvasively and invasively in the past. Her noninvasive and invasive studies do not show any evidence of a recurrent similar type syndrome at this time. Her overall LV wall motion systolic function appears to be preserved. 4. Pericardial effusion status post pericardial window Her repeat noninvasive studies do not suggest any ongoing pericardial disease especially recurrent pericardial effusion. 5. Hyperlipidemia She will continue medical management as deemed appropriate. 6. Hypertension She will continue to have her blood pressure monitored. She is known to have intermittent spikes in her heart rate and blood pressure. She has been evaluated for such multiple times in the past both locally and at other facilities by cardiology and endocrinology for underlying hormonal issues such as pheochromocytoma, etc. Thus far she has received no definitive diagnosis. She will continue medical management as deemed appropriate. 7. COPD She is concerned that her pulmonary disease process may be progressing and this may be contributing to some of her symptoms as well. Again, the recommendation is been made that she be evaluated by pulmonology for her history of shortness of breath/dyspnea, etc. 8. Head neck carcinoma She has a history of remote head neck carcinoma which she states is over 9 years ago. She states she no longer requires yearly follow-up with her oncologist. The above was discussed with the patient and her spouse and the [facility] staff. This note was generated using a voice recognition system and there may be incorrect words, spelling or punctuation that were not noted when reviewing the office note prior to saving.
--- NOTE | 2019-07-18 09:12 | DCINST_ITS ---
You will use the following diet at home:: No restrictions Discharge Activity: Return to Normal Activity Call your doctor if you observe: Shortness of breath, Dizziness, Fainting spells, Chest pain Allergies/Adverse Reactions: Allergies codeine Adverse Reaction (Verified 07/16/19 10:29) HEART RACES indomethacin [From Indocin] Adverse Reaction (Verified 07/16/19 10:29) Abd cramps/diarrhea indomethacin sodium [From Indocin] Adverse Reaction (Verified 07/16/19 10:29) Abd cramps/diarrhea levofloxacin [From Levaquin] Adverse Reaction (Verified 07/16/19 10:29) INCREASED BLOOD PRESSURE nitrofurantoin [From Macrobid] Adverse Reaction (Verified 07/16/19 10:29) Nausea/Vom/Diarrhea propoxyphene napsylate [From Darvocet-N 100] Adverse Reaction (Verified 07/16/19 10:29) PASSES OUT Medications to take at Discharge Calcium Carb/Vitamin D3/Vit K1 [Citracal Soft Chew] 2 ea PO QHS 12/08/14 Lorazepam [Ativan] 0.25 mg PO DAILY PRN PRN 12/08/14 Pravastatin [Pravachol] 80 mg PO QHS 12/08/14 Albuterol Inhaler [Ventolin Hfa] 1 - 2 puff INHALATION Q6H PRN PRN #1 inhaler 05/30/17 cranberry fruit concentrate 250 mg chewable tablet 250 mg PO DAILY tab 10/29/17 levocetirizine 5 mg tablet 5 mg PO QHS PRN tab 10/29/17 ranitidine 150 mg tablet 150 mg PO DAILY tab 10/29/17 sucralfate 1 gram tablet 1 gm PO QHS PRN tab 10/29/17 Pantoprazole Sodium 40 mg PO DAILY 10/15/18 Raloxifene HCl [Evista] 60 mg PO DAILY 10/15/18 metoprolol succinate ER 50 mg tablet,extended release 24 hr 50 mg PO DAILY #90 tab 03/05/19 Acetaminophen [Tylenol Arthritis] 650 - 1,300 mg PO QHS PRN PRN 07/16/19 Nitroglycerin (INPATIENT USE) [Nitrostat] 0.4 mg SUBLINGUAL Q5M PRN 07/16/19 Amlodipine [Norvasc] 5 mg PO DAILY #30 tablet 07/18/19 The following prescriptions were given: Amlodipine [Norvasc] 5 mg PO DAILY #30 tablet Primary Care Physician: Malcolm Mariscal MD [Primary Care Provider] - Please follow up with your Primary Care Physician in: 1 Week Test Results: Test results from this visit will be discussed in further detail at your follow- up appointment, if applicable. Please Follow Up With: Malcolm Hughes MD When: 1-2 weeks with [employer]/PA, As scheduled 10/08/[address] Hughes Please Follow Up With: Jose Daniel Sheppard DO - Pulmonary Medicine When: 1-2 Weeks Please Follow Up With: Tanya Haas MD - General Surgery When: Call for outpatient follow up/upper and lower scope Proposed Discharge Date: 07/17/19
[2019-07-18 09:14] VITALS: BP 143/79; PULSE 88; RESP 18; TEMP 36.9; O2SAT 97
--- NOTE | 2019-07-18 09:39 | CASEMGMT ---
This RN CM to room with LUCIO form at this time, explanation done-pt voices understanding, and pt signs LUCIO form at this time. Original to chart and copy to pt at this time. Pt voices no further questions/concerns/needs at this time. Pt is dressed and awaiting discharge. S[place]en JAMISON REYNOLDS
== END 2019-07-18 09:10 | disposition home or self-care (01) ==
LOC: ED 15:12 → PCU 15:22
PROVIDERS: Internal Medicine Cardiovascular Disease; Admitting Provider Student in an Organized Health Care Education/Training Program; Emergency Provider Emergency Medicine; Family Provider Family Medicine; PCP Family Medicine; Referring Provider Student in an Organized Health Care Education/Training Program; Visit Provider Internal Medicine
DX: R07.89 Other chest pain (principal); R55 Syncope and collapse; R06.09 Other forms of dyspnea; R42 Dizziness and giddiness; I25.10 Atherosclerotic heart disease of native coronary artery without angina pectoris; J44.9 Chronic obstructive pulmonary disease, unspecified; I10 Essential (primary) hypertension; E78.5 Hyperlipidemia, unspecified; K21.9 Gastro-esophageal reflux disease without esophagitis; M40.209 Unspecified kyphosis, site unspecified; I25.2 Old myocardial infarction; I51.81 Takotsubo syndrome; M81.0 Age-related osteoporosis without current pathological fracture; Z85.810 Personal history of malignant neoplasm of tongue; Z79.899 Other long term (current) drug therapy; R64 Cachexia; Z68.1 Body mass index [BMI] 19.9 or less, adult
CPT/HCPCS: 36415; 80048; 84484; 85014; 85018; 85025; 85730; 93005; 93306; 93458; 96361; 96374; 96376; 99152; 99153; 99218; 99285; J7030; Q9967; A4216; C1769; C1894; G0378

== ENCOUNTER → 2019-10-02 12:49 | Outpatient (CLI) | payer MEDICARE, OTHER, SELFPAY ==
--- NOTE | 2019-10-02 12:50 | CT_ITS ---
STUDY: CT CHEST WITHOUT CONTRAST REASON FOR EXAM: Female, 73 years old. Apical scarring, evaluation for bronchiectasis, prior partial glossectomy, pericardial window. RADIATION DOSAGE (If Supplied By Facility): CTDIvol = ( 6.07 ) mGy, DLP = ( 237.53 ) mGycm TECHNIQUE: Transaxial imaging was performed without the administration of intravenous contrast material. Individualized dose optimization techniques were used for this CT. COMPARISON: 15 July 2019 plain films, [address] chest, [address] chest FINDINGS: Examination is moderately limited due to lack of IV contrast. Diagnostic information is available. Lungs are mildly emphysematous and hyperinflated with increased anterior-posterior thoracic dimension. There are stable bilateral apical pleural parenchymal scars unchanged since 2012. There are no high-risk focal pulmonary opacities. Central airways are patent. There is no bronchiectasis. Pleural surfaces are intact. There is chronic elevation of the left hemidiaphragm. Noncontrast mediastinal contents are normal. Cardiac chambers are normal in size and shape. There is mild pulmonary arterial hypertension. There is osteoporosis and chronic mid thoracic compression fracture with cement augmentation. Thoracic spinal canal is patent. There is a cystic-appearing left upper retroperitoneal structure, presumably renal cyst. CT/Chest without Contrast IMPRESSION: 1. Benign stable apical scarring, unchanged since 2012. 2. Moderate emphysema. 3. No bronchiectasis. Electronically Signed: Velia Park, at 17:38 EST Tel , Service support ,
== END ==
PROVIDERS: Family Provider Family Medicine; PCP Family Medicine; Referring Provider Internal Medicine Critical Care Medicine; Visit Provider Internal Medicine Critical Care Medicine
DX: R93.89 Abnormal findings on diagnostic imaging of other specified body structures (principal)
CPT/HCPCS: 71250

== ENCOUNTER → 2019-10-21 10:52 | Outpatient (CLI) | payer MEDICARE, OTHER, SELFPAY ==
[2019-10-08 13:45] VITALS: BMI 20.5
--- NOTE | 2019-10-22 14:19 | PFT ---
INTRODUCTION: The patient is a 73-year-old female that presents for pulmonary function studies secondary to a diagnosis of asthma. Respiratory therapy reports good patient effort. Bronchodilators were used during testing. INTERPRETATION: Forced expiration spirometry demonstrates the presence of a moderately severe large airways obstructive ventilatory defect. There was no significant response to aerosolized bronchodilators, based upon strict ATS criteria. Spirograms are of fair quality and plateau gradually indicating slow emptying of the lungs. Body plethysmography was performed and reveals lung volumes to be within normal limits. Diffusing capacity by single breath CO is within normal limits as well at 74% of predicted. IMPRESSION: Irreversible moderately severe large airways obstructive ventilatory defect with preserved lung volumes and diffusing capacity.
== END ==
PROVIDERS: Family Provider Family Medicine; PCP Family Medicine; Referring Provider Internal Medicine Critical Care Medicine; Visit Provider Internal Medicine Critical Care Medicine
DX: J45.40 Moderate persistent asthma, uncomplicated (principal)
CPT/HCPCS: 94060; 94726; 94729

== ENCOUNTER 2019-11-18 17:50 | Observation (INO) | payer MEDICARE, OTHER, SELFPAY ==
[2019-10-08 13:45] VITALS: BMI 20.5
[2019-11-18] VITALS (7 sets, daily range): BP systolic 123–186; BP diastolic 60–89; PULSE 67–79; RESP 15–25; TEMP 36.6–36.7; O2SAT 94–97; BMI 19.4; BMI 19.6; BMI 19.7
--- NOTE | 2019-11-18 18:06 | EKG12_ITS ---
Test Reason : CP Blood Pressure : / mmHG Vent. Rate : 071 BPM Atrial Rate : 071 BPM P-R Int : 164 ms QRS Dur : 076 ms QT Int : 388 ms P-R-T Axes : 054 010 052 degrees QTc Int : 421 ms Normal sinus rhythm Normal ECG Confirmed by MJ JAIN ([id number]), senior editor MARCO BALLARD ([id number]) on 11/19/2019 2:56:37 PM Referred By: DEVORAH/KD Confirmed By:MJ JAIN
--- NOTE | 2019-11-18 18:08 | EKG12_ITS ---
Test Reason : REPEAT CP Blood Pressure : / mmHG Vent. Rate : 062 BPM Atrial Rate : 062 BPM P-R Int : 164 ms QRS Dur : 086 ms QT Int : 402 ms P-R-T Axes : 050 012 051 degrees QTc Int : 408 ms Normal sinus rhythm Normal ECG Confirmed by MJ JAIN ([id number]), editor book MARCO BALLARD ([id number]) on 11/19/2019 2:56:50 PM Referred By: MELISA Confirmed By:MJ JAIN
--- NOTE | 2019-11-18 18:09 | ED.VIS.GEN ---
History of Present Illness Chief Complaint: Chest Pain Informant: Patient Onset: Today Current Severity: Moderate Maximum Severity: Moderate Narrative: Patient presents for chest pain. Patient states symptoms started on 4:40 PM this afternoon while she was eating. She describes a heaviness in her chest and into her back. She states she was initially very lightheaded and dizzy. She had to sit with her head between her legs about 15 minutes. She does feel nauseated. She denies shortness of breath. Patient does have a history of prior NSTEMI. She had a heart cath done at that time that did not reveal any blockages. She states she had a heart cath done in June 2018 that was unremarkable as well. - Past Medical History (1) GERD (gastroesophageal reflux disease) Status: Chronic (2) Old myocardial infarction Status: Chronic (3) Pulmonary nodule Status: Chronic (4) Asthma Status: Chronic (5) Atherosclerotic heart disease of [place] coronary artery without angina pectoris Status: Chronic Comment: Nonobstructive CAD per cath 12/11/[address] Narvaez [facility]; LEFT MAIN: Angiographically normal; LEFT ANTERIOR DESCENDING ARTERY: Angiographically normal; CIRCUMFLEX ARTERY: Angiographically normal; RIGHT CORONARY ARTERY: PROX RCA: Mild luminal irregularities; MID RCA: Mild luminal irregularities; AORTIC ROOT:Angiographically normal per cath 07/17/19 (6) Benign essential HTN Status: Chronic (7) COPD (chronic obstructive pulmonary disease) Status: Chronic (8) History of coronary vasospasm Status: Chronic (9) History of left heart catheterization Status: Chronic Comment: 12/05/2006 @ [facility] per Dr. Hughes; 12/11/[address] Narvaez@ [facility]; LEFT MAIN: Angiographically normal; LEFT ANTERIOR DESCENDING ARTERY: Angiographically normal; CIRCUMFLEX ARTERY: Angiographically normal; RIGHT CORONARY ARTERY: PROX RCA: Mild luminal irregularities; MID RCA: Mild luminal irregularities; AORTIC ROOT: Angiographically normal per cath 07/17/2019 (10) History of pericardiectomy Status: Chronic Comment: 03/09/[address] Chris Morse for recurrent pericardial effusion (11) Hyperlipidemia Status: Chronic (12) S/P pericardial window creation Status: Chronic (13) Takotsubo cardiomyopathy Status: Chronic Past Medical History - Allergies and Home Meds Allergies/Adverse Reactions: Allergies codeine Adverse Reaction (Verified 11/18/19 18:00) HEART RACES indomethacin [From Indocin] Adverse Reaction (Verified 11/18/19 18:00) Abd cramps/diarrhea indomethacin sodium [From Indocin] Adverse Reaction (Verified 11/18/19 18:00) Abd cramps/diarrhea levofloxacin [From Levaquin] Adverse Reaction (Verified 11/18/19 18:00) INCREASED BLOOD PRESSURE nitrofurantoin [From Macrobid] Adverse Reaction (Verified 11/18/19 18:00) Nausea/Vom/Diarrhea propoxyphene napsylate [From Darvocet-N 100] Adverse Reaction (Verified 11/18/19 18:00) PASSES OUT Primary Care Physician: Malcolm Mariscal MD [Primary Care Provider] - Doctors: Dr. 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 Lives: Spouse/ Significant Other Smoking Status: Never smoker - Family History Maternal Family History: Family History (Last Reviewed 10/08/19 @ 13:47 by Barbie Sultana) Father Myocardial infarction, Onset Age: 35 Mother Asthma Grandmother Asthma Emphysema lung Family History: Reports: Cancer - age 84 Paternal Family History: Family History (Last Reviewed 10/08/19 @ 13:47 by Barbie Sultana) Father Myocardial infarction, Onset Age: 35 Mother Asthma Grandmother Asthma Emphysema lung Family History: Reports: Heart Disease - age 93, Hypertension Offspring Family History: Family History (Last Reviewed 10/08/19 @ 13:47 by Barbie Sultana) Father Myocardial infarction, Onset Age: 35 Mother Asthma Grandmother Asthma Emphysema lung Family History: Reports: - - 4 children and 4 grandchildren in good health Review of Systems General: Denies: Chills, Fever Eyes: Denies: Visual changes - bilaterally ENT: Denies: Bilateral ear pain Cardiovascular: Reports: Chest pain Respiratory: Denies: Dyspnea Gastrointestinal: Reports: Nausea. Denies: Abdominal pain Genitourinary: Denies: Dysuria Musculoskeletal: Reports: Back pain Skin: Denies: Rash Neurological: Denies: Headache Allergy: Denies: Uticaria Physical Exam Vital Signs/Narrative: Vital Signs Temp Pulse Resp BP Pulse Ox 11/18/19 18:00 70 20 H 97 11/18/19 17:52 97.8 F 79 25 H 186/89 H 96 Inital Vital Signs reviewed: Yes General: Well nourished, Well developed Head: Normocephalic ENT: Moist mucous membranes Neck: Supple Cardiovascular: Regular rate, Regular rhythm Respiratory: No distress, CTA bilaterally Abdomen: Soft, Nontender Extremities: Nontender Skin: Normal color Neurological: Alert, Oriented x3 Psychological: - - Anxious Diagnostic/Tx/Re-eval Impressions Chest X-Ray 11/18/19 18:15 IMPRESSION: No acute cardio pulmonary pathology Electronically Signed: Porfirio Brenner MD at 18:57 EST , Service support , 11/18/19 18:15 Chest 1 View (Portable) [RAD] Stat Laboratory Results 11/18/19 11/18/19 11/18/19 18:18 18:18 18:18 WBC 6.8 RBC 4.21 Hgb 12.8 Hct 38.0 MCV 90.3 MCH 30.4 MCHC 33.7 RDW Std Deviation 45.6 H RDW Coeff of Dianne 14.0 Plt Count 402 MPV 8.8 Immature Gran % (Auto) 0.300 Neut % (Auto) 75.6 H Lymph % (Auto) 17.4 L Jerome % (Auto) 5.9 Eos % (Auto) 0.4 Baso % (Auto) 0.4 Absolute Neuts (auto) 5.1 Absolute Lymphs (auto) 1.18 Nucleated RBC % 0 D-Dimer Quant (PE/DVT) Cancelled Sodium Cancelled Potassium Cancelled Chloride Cancelled Carbon Dioxide Cancelled Anion Gap Cancelled BUN Cancelled Creatinine Cancelled Estim Creat Clear Calc Cancelled Est GFR (MDRD) Af Amer Cancelled Est GFR (MDRD) Non-Af Cancelled BUN/Creatinine Ratio Cancelled Glucose Cancelled Calcium Cancelled Troponin I Cancelled 11/18/19 11/18/19 18:45 18:45 WBC RBC Hgb Hct MCV MCH MCHC RDW Std Deviation RDW Coeff of Dianne Plt Count MPV Immature Gran % (Auto) Neut % (Auto) Lymph % (Auto) Jerome % (Auto) Eos % (Auto) Baso % (Auto) Absolute Neuts (auto) Absolute Lymphs (auto) Nucleated RBC % D-Dimer Quant (PE/DVT) 0.34 Sodium 129 L Potassium 3.9 Chloride 96 L Carbon Dioxide 30.0 Anion Gap 3 L BUN 10 Creatinine 1.24 H Estim Creat Clear Calc 33.81 Est GFR (MDRD) Af Amer 55 L Est GFR (MDRD) Non-Af 45 L BUN/Creatinine Ratio 8.1 L Glucose 121 H Calcium 8.0 L Troponin I < 0.015 - EKG Initial EKG Interpretation: Sinus Rhythm - Sinus at 71 with no acute ischemia. She does have prominent T waves noted in lead V2. This is changed from the EMS EKG, however is similar to her prior EKG here. Follow-up EKG Interpretation: Sinus Rhythm - Sinus at 62 with no acute ischemia. T waves remain prominent in lead V2. - Medical Decision Making Patient received aspirin and 3 nitro prior to arrival. She was given 2 mg of morphine. On repeat evaluation she is feeling significantly improved. Patient's story is certainly concerning and she does have cardiac history. She will be admitted for cycling of cardiac enzymes and further evaluation. ED Disposition - Plan for ED Patient: Disposition: Acute Care Hospital [facility] Diagnosis: Chest pain Referrals: Malcolm Mariscal MD [Primary Care Provider] -
--- NOTE | 2019-11-18 18:15 | RAD_ITS ---
STUDY: X-RAY CHEST REASON FOR EXAM: Female, 74 years old. CHEST PAIN TECHNIQUE: AP portable COMPARISON: July 15, 2019 FINDINGS: The lungs are clear and expanded. There is no demonstrated pleural abnormality. Normal size heart. Normal mediastinum and елена. Normal visualized pulmonary arteries. Normal visualized aortic arch and descending thoracic aorta. Dorsal spine demonstrates mild scoliosis and degenerative change. There is chronic compression fractures status post kyphoplasty.. Normal visualized ribs, clavicles, and shoulders. Mildly elevated left hemidiaphragm in association with bowel distention.. No significant change since prior exam RAD/Chest 1 View (Portable) IMPRESSION: No acute cardio pulmonary pathology Electronically Signed: Porfirio Brenner MD at 18:57 EST , Service support ,
[2019-11-18 18:27] LABS: Absolute Lymphocyte Count 1.18 X10^3/uL (0.83-4.51); Absolute Neutrophil Count 5.1 X10^3/uL (2.0-7.7); Basophil# 0.03 X10^3/uL; Basophil% 0.4 % (0-1); Eosinophil# 0.03 X10^3/uL; Eosinophils% 0.4 % (0-5); Hemoglobin 12.8 g/dL (12.0-15.0); Lymphocyte # 1.18 X10^3/ul (4.0); Lymphocyte % 17.4 % (19-41); Mean Corp Hgb Conc 33.7 g/dL (32-36); Mean Corpuscular Hgb 30.4 pg (27.0-32.0); Mean Corpuscular Volume 90.3 fL (81-99); Mean Platelet Vol. 8.8 fl (6.2-12.0); Monocyte% 5.9 % (0-10); NRBC Flagged by Analyzer 0 % (0-5); Neutrophil # 5.13 X10^3/uL (2.7-7.7); Neutrophil % 75.6 % (47-70); Platelet Count 402 K/mm3 (150-450); RBC Distribution Width SD 45.6 fl (35.1-43.9); Red Blood Count 4.21 M/mm3 (4.2-5.4); White Blood Count 6.8 K/mm3 (4.4-11.0)
[2019-11-18] MEDS: Morphine 4 MG/ML Syringe 2 MG IV (18:31)
[2019-11-18] MEDS: Ondansetron 4 MG/2 ML Vial IV (18:31)
[2019-11-18] MEDS: 0.9% Normal Saline 1,000 ML 150 ML IV (18:36)
[2019-11-18 19:01] LABS: D-Dimer Quantitative (DVT/PE) 0.34 FEU/ug/m (0.27-0.49)
[2019-11-18 19:08] LABS: Anion Gap 3 (5-15); BUN 10 mg/dL (7-18); BUN/Creat Ratio 8.1 RATIO (10-20); Chloride 96 mmol/L (98-107); Creatinine, Serum 1.24 mg/dL (0.55-1.02); EST Glomerular Filtration Rate 45 mL/min (>60); Est Glom Filt Rate - Afr Amer 55 mL/min (>60); Estimated Creatinine Clearance 33.81 ml/min; Glucose 121 mg/dL (74-106); Potassium 3.9 mmol/L (3.5-5.1); Sodium Level 129 mmol/L (136-145)
--- NOTE | 2019-11-18 19:23 | PCM.HP.STD ---
History of Present Illness Date of Admission: 11/18/19 Chief Complaint: Chest pain The patient is a 74 year old F with an extensive past medical history as outlined which includes a history of Takotsubo cardiomyopathy in 2002. She was admitted through the ED on 11/18/2019 with a complaint of chest pain. Chest pain started at around 4:40 PM on day of admission. It was pressure-like, aggravated by exertion and relieved by rest. She had associated lightheadedness, palpitations and nausea but no vomiting. Chest pain radiated to her back. Review of systems is otherwise negative. She called the squad and she was given 4 baby aspirin and sublingual nitro which helped. On admission in the ED, blood pressure was 167/74 with temperature of 97.8 and a pulse rate of 69. Respiratory rate was 15. Chemistry showed sodium of 129 which is chronically low and creatinine of 1.24. Initial troponin was negative. CBC was unremarkable. EKG showed no acute ST changes and prominent T waves in V1 and V2 which were present in previous EKGs. She has been admitted to be managed for chest pain rule out ACS. [] Past Medical History Past Medical History (Chronic Problems): Chronic Problems (Last Reviewed 10/08/19 @ 13:47 by Barbie Sultana) GERD (gastroesophageal reflux disease) (Chronic) Pulmonary nodule (Chronic) Osteoporosis (Chronic) Old myocardial infarction (Chronic) S/P pericardial window creation (Chronic) 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 Chris Morse for recurrent pericardial effusion COPD (chronic obstructive pulmonary disease) (Chronic) Hyperlipidemia (Chronic) Takotsubo cardiomyopathy (Chronic) History of left heart catheterization (Chronic) 12/05/2006 @ [facility] per Dr. Hughes; 12/11/[address] Narvaez@ [facility]; LEFT MAIN: Angiographically normal; LEFT ANTERIOR DESCENDING ARTERY: Angiographically normal; CIRCUMFLEX ARTERY: Angiographically normal; RIGHT CORONARY ARTERY: PROX RCA: Mild luminal irregularities; MID RCA: Mild luminal irregularities; AORTIC ROOT: Angiographically normal per cath 07/17/2019 Atherosclerotic heart disease of [place] coronary artery without angina pectoris (Chronic) Nonobstructive CAD per cath 12/11/[address] Narvaez [facility]; LEFT MAIN: Angiographically normal; LEFT ANTERIOR DESCENDING ARTERY: Angiographically normal; CIRCUMFLEX ARTERY: Angiographically normal; RIGHT CORONARY ARTERY: PROX RCA: Mild luminal irregularities; MID RCA: Mild luminal irregularities; AORTIC ROOT:Angiographically normal per cath 07/17/19 Asthma (Chronic) Benign essential HTN (Chronic) History of coronary vasospasm (Chronic) Medical History: Medical History (Last Reviewed 10/08/19 @ 13:47 by Barbie Sultana) GERD (gastroesophageal reflux disease) (Chronic) K21.9 Pulmonary nodule (Chronic) R91.1 Bronchitis (Acute) J40 Osteoporosis (Chronic) M81.0 Old myocardial infarction (Chronic) I25.2 COPD (chronic obstructive pulmonary disease) (Chronic) J44.9 Hyperlipidemia (Chronic) E78.5 Takotsubo cardiomyopathy (Chronic) I51.81 Atherosclerotic heart disease of [place] coronary artery without angina pectoris (Chronic) I25.10 Nonobstructive CAD per cath 12/11/[address] Narvaez [facility]; LEFT MAIN: Angiographically normal; LEFT ANTERIOR DESCENDING ARTERY: Angiographically normal; CIRCUMFLEX ARTERY: Angiographically normal; RIGHT CORONARY ARTERY: PROX RCA: Mild luminal irregularities; MID RCA: Mild luminal irregularities; AORTIC ROOT:Angiographically normal per cath 07/17/19 Asthma (Chronic) J45.909 Benign essential HTN (Chronic) I10 History of coronary vasospasm (Chronic) Z86.79 CAD (coronary artery disease) I25.10 Myocardial infarct I21.9 History of non-ST elevation myocardial infarction (NSTEMI) I25.2 Tongue cancer 1998 Allergies codeine Adverse Reaction (Verified 11/18/19 18:00) HEART RACES indomethacin [From Indocin] Adverse Reaction (Verified 11/18/19 18:00) Abd cramps/diarrhea indomethacin sodium [From Indocin] Adverse Reaction (Verified 11/18/19 18:00) Abd cramps/diarrhea levofloxacin [From Levaquin] Adverse Reaction (Verified 11/18/19 18:00) INCREASED BLOOD PRESSURE nitrofurantoin [From Macrobid] Adverse Reaction (Verified 11/18/19 18:00) Nausea/Vom/Diarrhea propoxyphene napsylate [From Darvocet-N 100] Adverse Reaction (Verified 11/18/19 18:00) PASSES OUT Home Medications: Ambulatory Orders Medication Instructions Recorded Calcium Carb/Vitamin D3/Vit K1 2 ea PO QHS 12/08/14 [Citracal Soft Chew] Lorazepam [Ativan] 0.25 mg PO DAILY PRN PRN 12/08/14 Albuterol Inhaler [Ventolin Hfa] 1 - 2 puff INHALATION Q6H PRN PRN 05/30/17 #1 inhaler cranberry fruit concentrate 250 mg 250 mg PO DAILY tab 10/29/17 chewable tablet levocetirizine 5 mg tablet 5 mg PO QHS PRN tab 10/29/17 sucralfate 1 gram tablet 1 gm PO QHS PRN tab 10/29/17 Raloxifene HCl [Evista] 60 mg PO DAILY 10/15/18 metoprolol succinate 50 mg 50 mg PO DAILY #90 tab 03/05/19 tablet,extended release 24 hr Acetaminophen [Tylenol Arthritis] 650 mg PO QHS PRN PRN 07/16/19 Nitroglycerin (INPATIENT USE) 0.4 mg SUBLINGUAL Q5M PRN 07/16/19 [Nitrostat] Amlodipine [Norvasc] 5 mg PO DAILY #30 tab 07/18/19 pravastatin 80 mg tablet 80 mg PO QHS #90 tab 09/05/19 pantoprazole 40 mg tablet,delayed 40 mg PO DAILY #90 tab 10/08/19 release Ranitidine [Zantac] 150 mg PO DAILY PRN PRN 11/18/19 Surgical History: Surgical History (Last Reviewed 10/08/19 @ 13:47 by Barbie Sultana) S/P pericardial window creation (Chronic) Z98.890 History of pericardiectomy (Chronic) Z98.890 03/09/[address] Chris Morse for recurrent pericardial effusion History of left heart catheterization (Chronic) Z98.890 12/05/2006 @ [facility] per Dr. Hughes; 12/11/[address] 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 Psychiatric History: No pertinent psych hx [employer] History: No pertinent [employer]ER history Lives: Spouse/ Significant Other Smoking Status: Never smoker Tobacco Use: Non-smoker - *Family History Maternal Family History: Family History (Last Reviewed 10/08/19 @ 13:47 by Barbie Sultana) Father Myocardial infarction, Onset Age: 35 Mother Asthma Grandmother Asthma Emphysema lung History Items: Cancer - age 84 Paternal Family History: Family History (Last Reviewed 10/08/19 @ 13:47 by Barbie Sultana) Father Myocardial infarction, Onset Age: 35 Mother Asthma Grandmother Asthma Emphysema lung History Items: Heart Disease - age 93, Hypertension Offspring Family History: Family History (Last Reviewed 10/08/19 @ 13:47 by Barbie Sultana) Father Myocardial infarction, Onset Age: 35 Mother Asthma Grandmother Asthma Emphysema lung History Items: - - 4 children and 4 grandchildren in good health Review of Systems Constitutional: Denies: Chills, Fever, Malaise, Weakness, Weight Change Eyes: Denies: Blurred vision HEENT: Denies: Head Aches, Sinus Congestion, Sinus Drainage Cardiovascular: Reports: Chest Pain, Chest Pressure, Heaviness, Light Headedness, Palpitations. Denies: Chest Tightness, Orthopnea, Paroxysmal Noc. Dyspnea, Syncope Respiratory: Denies: Cough, Shortness of Breath, Shortness of breath at rest, Shortness of breath upon exertion, Sputum production Gastrointestinal: Reports: Nausea. Denies: Abdominal Pain, Vomiting Genitourinary: Denies: Dysuria Musculoskeletal: Denies: Joint Pain, Joint Tenderness Skin: Denies: Rash, Wounds Neurological: Denies: Numbness, Tingling, Focal weakness Psychiatric: Denies: Anxiety, Depression, Homicidal Ideations, Suicidal Ideations Hematologic/ Lymphatic: Denies: Easy Bruising, Easy Bleeding VTE Information - Inpt Only VTE Present on Admission: No VTE Pharm Prophylaxis ordered?: Yes - Physical Exam Vitals/I&O's: Vital Signs Temp Pulse Resp BP Pulse Ox 97.8 F 70 20 H 186/89 H 97 11/18/19 17:52 11/18/19 18:00 11/18/19 18:00 11/18/19 17:52 11/18/19 18:31 Oxygen Delivery Method Room Air Weight: 116 lb 13.52 oz Body Mass Index (BMI) 19.4 General: Alert, Oriented x3, Cooperative, No apparent distress HEENT: Atraumatic, PERRLA, EOMI, Normocephalic Oral: Dry Mucosa Neck: Supple, No JVD, Negative Carotid Bruits Lungs: Clear to auscultation, Normal air movement, No rhonchi, No wheeze, No rales Cardiovascular: Regular rate, Regular Rhythm, Normal S1, Normal S2, No murmurs Abdomen: Bowel Sounds Present, Soft, Non Tender, Non-Distended, No Hepato-splenomegaly Extremities: No clubbing, No cyanosis, No edema, Capillary Refill Less than 3 Seconds Skin: No rashes, No breakdown Musculoskeletal: No Tenderness to Palpation of Joints or Extremities Lymphatic: No Cervical, Supraclavicular, or Inguinal Adenopathy Neurological: Cranial nerves II-XII grossly intact, Neuro grossly intact, Motor Exam 5/5 strength throughout Psych/Mental Status: Anxious, Alert and oriented to time, place, person, mood and affect Laboratory Results 11/18/19 18:18: WBC 6.8, RBC 4.21, Hgb 12.8, Hct 38.0, MCV 90.3, MCH 30.4, MCHC 33.7, RDW Std Deviation 45.6 H, RDW Coeff of Dianne 14.0, Plt Count 402, MPV 8.8, Immature Gran % (Auto) 0.300, Neut % (Auto) 75.6 H, Lymph % (Auto) 17.4 L, [place] % (Auto) 5.9, Eos % (Auto) 0.4, Baso % (Auto) 0.4, Absolute Neuts (auto) 5.1, Absolute Lymphs (auto) 1.18, Nucleated RBC % 0 11/18/19 18:18: D-Dimer Quant (PE/DVT) Cancelled 11/18/19 18:18: Sodium Cancelled, Potassium Cancelled, Chloride Cancelled, Carbon Dioxide Cancelled, Anion Gap Cancelled, BUN Cancelled, Creatinine Cancelled, Estim Creat Clear Calc Cancelled, Est GFR (MDRD) Af Amer Cancelled, Est GFR (MDRD) Non-Af Cancelled, BUN/Creatinine Ratio Cancelled, Glucose Cancelled, Calcium Cancelled, Troponin I Cancelled 11/18/19 18:45: Sodium 129 L, Potassium 3.9, Chloride 96 L, Carbon Dioxide 30.0, Anion Gap 3 L, BUN 10, Creatinine 1.24 H, Estim Creat Clear Calc 33.81, Est GFR (MDRD) Af Amer 55 L, Est GFR (MDRD) Non-Af 45 L, BUN/Creatinine Ratio 8.1 L, Glucose 121 H, Calcium 8.0 L, Troponin I < 0.015 11/18/19 18:45: D-Dimer Quant (PE/DVT) 0.34 Diagnostic Data Chest X-Ray 11/18/19 18:15 IMPRESSION: No acute cardio pulmonary pathology Electronically Signed: Porfirio Brenner MD at 18:57 EST , Service support , Current Medications Sodium Chloride () 1,000 mls @ 150 mls/hr IV .Q6H40M [facility] Last Admin: 11/18/19 18:36 Dose: 150 mls/hr Documented by: Assessment/Plan All Active Problems (Last Reviewed 10/08/19 @ 13:47 by Barbie Sultana) Chest pain (Acute) Shortness of breath (Acute) Abnormal CXR (Acute) Bronchitis (Acute) Chest pain (Acute) 74-year-old female admitted with a complaint of chest pain. 1. Chest pain to r/o ACS She does have a history of Takotsubo cardiomyopathy back in 2002 and also had non-STEMI 2018 for which she had a cardiac cath which showed no significant narrowing of the coronary arteries. Initial troponin is negative. We will cycle troponins x3. Sublingual nitroglycerin as needed. P.o. aspirin 81 mg daily. To have stress test tomorrow if troponins are negative. 2. History of asthma: And albuterol inhaler. 3. Elevated creatinine: Creatinine is 1.24 with a baseline of around 0.8. Does not meet criteria for EDDY. Will hydrate gently with IV fluids and monitor. 4. Benign essential hypertension Blood pressure in the 160s on admission. Blood pressure in both arms were similar. On amlodipine 5 mg daily and metoprolol 50 mg daily. 5. CAD and Takotsubo cardiomyopathy On metoprolol and pravastatin. 6. GERD: Stable. On ranitidine and sucralfate. 7. Hyponatremia: chronic. sodium is 129. usually around 130s. Will monitor. DVT prophylaxis: Lovenox CODE STATUS: Full code Patient and counseled extensively about different types of CODE STATUS including full code, DNR CCA and DNR CCA. Patient elects to be full code. Total [id number] time 16 minutes. Code Visit OBSV E&M: 88471 Initial observation care L2 Procedures: 25718 Advncd Care Plan 30 Min
--- NOTE | 2019-11-18 20:10 | EKG12_ITS ---
Test Reason : CP ADMISSION Blood Pressure : / mmHG Vent. Rate : 063 BPM Atrial Rate : 063 BPM P-R Int : 158 ms QRS Dur : 080 ms QT Int : 404 ms P-R-T Axes : 061 027 058 degrees QTc Int : 413 ms Normal sinus rhythm Normal ECG When compared with ECG of 18-NOV-2019 18:26, MANUAL COMPARISON REQUIRED, DATA IS UNCONFIRMED Confirmed by MARIANA SELLERS, RAJINDER ([id number]), dictionary editor CHATA BALBUENA ([id number]) on 11/24/2019 9:00:47 AM Referred By: REY Confirmed By:LEVY PEÑA MD
[2019-11-18] MEDS: Pravastatin 80 MG Tablet PO (21:35)
[2019-11-18] MEDS: Calcium Carb/Vitamin D 1 TABLET Tablet PO (21:37)
[2019-11-19] MEDS: LORazepam 0.5 MG Tablet 0.25 MG PO (00:56)
[2019-11-19 02:00] VITALS: BP 133/63; PULSE 61; RESP 12; TEMP 36.6; O2SAT 98
[2019-11-19 02:59] VITALS: PULSE 65
--- NOTE | 2019-11-19 05:24 | EKG12_ITS ---
Test Reason : AM EKG Blood Pressure : / mmHG Vent. Rate : 065 BPM Atrial Rate : 065 BPM P-R Int : 170 ms QRS Dur : 090 ms QT Int : 406 ms P-R-T Axes : 063 037 061 degrees QTc Int : 422 ms Normal sinus rhythm Normal ECG When compared with ECG of 18-NOV-2019 20:18, MANUAL COMPARISON REQUIRED, DATA IS UNCONFIRMED Confirmed by MARIANA SELLERS, RAJINDER ([id number]), movie editor CHATA BALBUENA ([id number]) on 11/24/2019 9:00:37 AM Referred By: REY Confirmed By:LEVY PEÑA MD
[2019-11-19] MEDS: Aspirin E.C. 81 MG Tablet PO (05:38)
[2019-11-19 05:41] VITALS: BP 152/74; PULSE 61; RESP 16; TEMP 36.7; O2SAT 98
[2019-11-19 06:11] LABS: Absolute Lymphocyte Count 1.71 X10^3/uL (0.83-4.51); Absolute Neutrophil Count 3.6 X10^3/uL (2.0-7.7); Basophil# 0.03 X10^3/uL; Basophil% 0.5 % (0-1); Eosinophil# 0.03 X10^3/uL; Eosinophils% 0.5 % (0-5); Hematocrit 34.5 % (37-47); Lymphocyte # 1.71 X10^3/ul (4.0); Lymphocyte % 29.5 % (19-41); Mean Corp Hgb Conc 31.9 g/dL (32-36); Mean Corpuscular Hgb 29.3 pg (27.0-32.0); Mean Corpuscular Volume 91.8 fL (81-99); Mean Platelet Vol. 8.3 fl (6.2-12.0); Monocyte# 0.47 X10^3/uL; Monocyte% 8.1 % (0-10); NRBC Flagged by Analyzer 0 % (0-5); Neutrophil # 3.55 X10^3/uL (2.7-7.7); Neutrophil % 61.2 % (47-70); Platelet Count 359 K/mm3 (150-450); RBC Distribution Width CV 13.5 % (11.6-14.6); RBC Distribution Width SD 45.6 fl (35.1-43.9); Red Blood Count 3.76 M/mm3 (4.2-5.4); White Blood Count 5.8 K/mm3 (4.4-11.0)
[2019-11-19 06:58] VITALS: PULSE 63
[2019-11-19 07:00] LABS: Anion Gap 6 (5-15); BUN 12 mg/dL (7-18); BUN/Creat Ratio 13.9 RATIO (10-20); Calcium,Total 9.1 mg/dL (8.5-10.1); Chloride 98 mmol/L (98-107); Creatinine, Serum 0.86 mg/dL (0.55-1.02); EST Glomerular Filtration Rate 69 mL/min (>60); Est Glom Filt Rate - Afr Amer 83 mL/min (>60); Glucose 89 mg/dL (74-106); Sodium Level 132 mmol/L (136-145)
--- NOTE | 2019-11-19 09:44 | STRESSREP ---
Stress Test Report Date: 11-19-2019 Procedure: Exercise tolerance test/imaging study Indications: Chest pain Consent: Per the patient Procedure: The patient exercised on a Jeffery protocol for 6 minutes completing Stage II achieving a peak heart rate of 148 bpm (100 % predicted maximal heart rate) with a peak blood pressure 164/80 mmHg and a peak MET capacity of 7 METs. The baseline ECG demonstrated normal sinus rhythm. The peak exercise ECG demonstrated no obvious ECG changes. There were no cardiac dysrhythmias pretest, during exercise, or recovery. The functional capacity was considered average. There was no complaint of chest discomfort during exercise or recovery. The examination was discontinued secondary to dyspnea. Impression: 1. Technically adequate (percent predicted maximal heart rate greater than 85%) exercise tolerance test 2. Peak exercise ECG with no obvious ECG changes 3. There were no cardiac dysrhythmias pretest, during exercise, or recovery 4. Nuclear images pending Myocardial perfusion imaging study: Technique: The patient was injected with 11.0 mCi of technetium 99m Cardiolite and subsequently rest SPECT Cardiolite nuclear imaging was obtained in the horizontal long, vertical long, and short axis views. The patient exercised on a Jeffery protocol for 6 minutes completing Stage II achieving a peak heart rate of 148 bpm (100 % predicted maximal heart rate) with a peak blood pressure 164/80 mmHg and a peak MET capacity of 7 METs. The patient was injected with 32.6 mCi of technetium 99m Cardiolite and subsequently stress SPECT Cardiolite nuclear imaging was obtained in the horizontal long, vertical long, and short axis views. A gated Cardiolite study at peak stress was obtained. Interpretation: Rest and stress SPECT Cardiolite nuclear imaging status post realignment, normalization, and attenuation correction, demonstrates the appearance of relative uniform tracer uptake and myocardial perfusion appearing within normal limits. There is end systolic thickening and brightening. The gated Cardiolite study demonstrates myocardial thickening and inward wall motion. The reported LVEF is 83 %. Impression: 1. Rest and stress SPECT Cardiolite nuclear imaging demonstrate relative uniform tracer uptake and myocardial perfusion appearing within normal limits. 2. The gated Cardiolite study reports an LVEF of 83 %. This note was generated with TUTORizeation software. It may contain incorrect words, spelling, and punctuation that were not noted in checking the note before signing.
[2019-11-19 10:13] VITALS: BP 166/93; PULSE 71; RESP 13; TEMP 36.8; O2SAT 98
[2019-11-19] MEDS: amLODIPine 5 MG Tablet PO (10:18)
[2019-11-19 10:19] VITALS: BP 166/93; PULSE 71
[2019-11-19] MEDS: Metoprolol(XL)Succ 50 MG Tablet PO (10:19)
[2019-11-19] MEDS: Pantoprazole Sodium 40 MG Tablet PO (10:19)
--- NOTE | 2019-11-19 11:10 | DCINST_ITS ---
- Discharge Diagnoses Current Active Problems: Current Active and Chronic Problems (Last Reviewed 10/08/19 @ 13:47 by Barbie Sultana) Chest pain (Acute) You will use the following diet at home:: No restrictions Your food should be the consistency of: Regular Your liquids should be the consistency of: Regular/Thin Discharge Activity: Return to Normal Activity Weight Bearing Status: Full weight bearing Allergies/Adverse Reactions: Allergies codeine Adverse Reaction (Verified 11/18/19 18:00) HEART RACES indomethacin [From Indocin] Adverse Reaction (Verified 11/18/19 18:00) Abd cramps/diarrhea indomethacin sodium [From Indocin] Adverse Reaction (Verified 11/18/19 18:00) Abd cramps/diarrhea levofloxacin [From Levaquin] Adverse Reaction (Verified 11/18/19 18:00) INCREASED BLOOD PRESSURE nitrofurantoin [From Macrobid] Adverse Reaction (Verified 11/18/19 18:00) Nausea/Vom/Diarrhea propoxyphene napsylate [From Darvocet-N 100] Adverse Reaction (Verified 11/18/19 18:00) PASSES OUT steroids Adverse Reaction (Uncoded 11/18/19 20:16) high blood pressure Medications to take at Discharge Calcium Carb/Vitamin D3/Vit K1 [Citracal Soft Chew] 2 ea PO QHS 12/08/14 Lorazepam [Ativan] 0.25 mg PO DAILY PRN PRN 12/08/14 Albuterol Inhaler [Ventolin Hfa] 1 - 2 puff INHALATION Q6H PRN PRN #1 inhaler 05/30/17 cranberry fruit concentrate 250 mg chewable tablet 250 mg PO DAILY tab 10/29/17 levocetirizine 5 mg tablet 5 mg PO QHS PRN tab 10/29/17 sucralfate 1 gram tablet 1 gm PO QHS PRN tab 10/29/17 Raloxifene HCl [Evista] 60 mg PO DAILY 10/15/18 metoprolol succinate 50 mg tablet,extended release 24 hr 50 mg PO DAILY #90 tab 03/05/19 Acetaminophen [Tylenol Arthritis] 650 mg PO QHS PRN PRN 07/16/19 Nitroglycerin (INPATIENT USE) [Nitrostat] 0.4 mg SUBLINGUAL Q5M PRN 07/16/19 Amlodipine [Norvasc] 5 mg PO DAILY #30 tab 07/18/19 pravastatin 80 mg tablet 80 mg PO QHS #90 tab 09/05/19 pantoprazole 40 mg tablet,delayed release 40 mg PO DAILY #90 tab 10/08/19 Ranitidine [Zantac] 150 mg PO DAILY PRN PRN 11/18/19 Primary Care Physician: Malcolm Mariscal MD [Primary Care Provider] - Please follow up with your Primary Care Physician in: at next scheduled Test Results: Test results from this visit will be discussed in further detail at your follow- up appointment, if applicable.
--- NOTE | 2019-11-19 11:25 | PHA.DC.MR ---
Pharmacy Service has performed discharge medication reconciliation for this patient. The patient's discharge medication list was reviewed for discrepancies and discrepancies were resolved. Home Medications Calcium Carb/Vitamin D3/Vit K1 [Citracal Soft Chew] 2 ea PO QHS 12/08/14 Lorazepam [Ativan] 0.25 mg PO DAILY PRN PRN 12/08/14 Albuterol Inhaler [Ventolin Hfa] 1 - 2 puff INHALATION Q6H PRN PRN #1 inhaler 05/30/17 cranberry fruit concentrate 250 mg chewable tablet 250 mg PO DAILY tab 10/29/17 levocetirizine 5 mg tablet 5 mg PO QHS PRN tab 10/29/17 sucralfate 1 gram tablet 1 gm PO QHS PRN tab 10/29/17 Raloxifene HCl [Evista] 60 mg PO DAILY 10/15/18 metoprolol succinate 50 mg tablet,extended release 24 hr 50 mg PO DAILY #90 tab 03/05/19 Acetaminophen [Tylenol Arthritis] 650 mg PO QHS PRN PRN 07/16/19 Nitroglycerin (INPATIENT USE) [Nitrostat] 0.4 mg SUBLINGUAL Q5M PRN 07/16/19 Amlodipine [Norvasc] 5 mg PO DAILY #30 tab 07/18/19 pravastatin 80 mg tablet 80 mg PO QHS #90 tab 09/05/19 pantoprazole 40 mg tablet,delayed release 40 mg PO DAILY #90 tab 10/08/19 Ranitidine [Zantac] 150 mg PO DAILY PRN PRN 11/18/19
--- NOTE | 2019-11-21 18:15 | PCM.DC.SUM ---
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 Chris Morse for recurrent pericardial effusion COPD (chronic obstructive pulmonary disease) (Chronic) Hyperlipidemia (Chronic) Takotsubo cardiomyopathy (Chronic) History of left heart catheterization (Chronic) 12/05/2006 @ [facility] per Dr. Hughes; 12/11/[address] Narvaez@ [facility]; LEFT MAIN: Angiographically normal; LEFT ANTERIOR DESCENDING ARTERY: Angiographically normal; CIRCUMFLEX ARTERY: Angiographically normal; RIGHT CORONARY ARTERY: PROX RCA: Mild luminal irregularities; MID RCA: Mild luminal irregularities; AORTIC ROOT: Angiographically normal per cath 07/17/2019 Atherosclerotic heart disease of [place] coronary artery without angina pectoris (Chronic) Nonobstructive CAD per cath 12/11/[address] Narvaez [facility]; LEFT MAIN: Angiographically normal; LEFT ANTERIOR DESCENDING ARTERY: Angiographically normal; CIRCUMFLEX ARTERY: Angiographically normal; RIGHT CORONARY ARTERY: PROX RCA: Mild luminal irregularities; MID RCA: Mild luminal irregularities; AORTIC ROOT:Angiographically normal per cath 07/17/19 Asthma (Chronic) Benign essential HTN (Chronic) History of coronary vasospasm (Chronic) Hospital Course and Treatment Operations: None Procedures: Nuclear stress test Summary of Care Provided: The patient is a 74 year old F who was seen in the emergency room at [facility] with a chief complaint of chest pain, work-up in the emergency room included cardiac isoenzymes, chest x-ray, and EKG which all were unremarkable. Patient was placed in observation status on PCU, cardiac isoenzymes were cycled and these remained normal, patient underwent a nuclear stress test on 11/19/2019 which was negative for reversible ischemia. On 11/19/2019, patient was seen and examined: On examination she appeared in good health and spirits. Vital signs as documented. Skin warm and dry and without overt rashes. Neck without JVD. Lungs clear. Heart exam notable for regular rhythm, normal sounds and absence of murmurs, rubs or gallops. Abdomen unremarkable and without evidence of organomegaly, masses, or abdominal aortic enlargement. Extremities nonedematous. Neuro: Cranial nerves II through XII are grossly intact, no focal motor deficits were noted, sensation to light touch and pinprick is intact. Psych: Patient is alert and oriented x3, she does not appear anxious or depressed Patient was discharged in stable condition on 11/19/2019 - Physical Exam Vitals/I&O's: Vital Signs Temp Pulse Resp BP Pulse Ox 98.2 F 71 13 166/93 H 98 11/19/19 10:13 11/19/19 10:19 11/19/19 10:13 11/19/19 10:19 11/19/19 10:13 Oxygen Delivery Method Room Air Weight: 53.6 kg Body Mass Index (BMI) 19.6 Intake and Output for Last 24 Hours 11/19/19 11/20/19 11/21/19 23:59 23:59 23:59 Intake Total 1012.5 / 1012.5 Balance 1012.5 / 1012.5 Discharge Activity: Return to Normal Activity Weight Bearing Status: Full weight bearing Home Medications: Medications to take at Discharge Calcium Carb/Vitamin D3/Vit K1 [Citracal Soft Chew] 2 ea PO QHS 12/08/14 Lorazepam [Ativan] 0.25 mg PO DAILY PRN PRN 12/08/14 Albuterol Inhaler [Ventolin Hfa] 1 - 2 puff INHALATION Q6H PRN PRN #1 inhaler 05/30/17 cranberry fruit concentrate 250 mg chewable tablet 250 mg PO DAILY tab 10/29/17 levocetirizine 5 mg tablet 5 mg PO QHS PRN tab 10/29/17 sucralfate 1 gram tablet 1 gm PO QHS PRN tab 10/29/17 Raloxifene HCl [Evista] 60 mg PO DAILY 10/15/18 metoprolol succinate 50 mg tablet,extended release 24 hr 50 mg PO DAILY #90 tab 03/05/19 Acetaminophen [Tylenol Arthritis] 650 mg PO QHS PRN PRN 07/16/19 Nitroglycerin (INPATIENT USE) [Nitrostat] 0.4 mg SUBLINGUAL Q5M PRN 07/16/19 Amlodipine [Norvasc] 5 mg PO DAILY #30 tab 07/18/19 pravastatin 80 mg tablet 80 mg PO QHS #90 tab 09/05/19 pantoprazole 40 mg tablet,delayed release 40 mg PO DAILY #90 tab 10/08/19 Ranitidine [Zantac] 150 mg PO DAILY PRN PRN 11/18/19 Primary Care Physician: Malcolm Mariscal MD [Primary Care Provider] - Please follow up with your Primary Care Physician in: at next scheduled Disposition: Home Minutes spent on discharge:: 30 Patient Condition:: Stable Medical Necessity - Tobacco Use Smoking Status: Never smoker Tobacco Use: Non-smoker Meaningful Use Info Meaningful Use Diagnoses (Choose all that apply): None applicable Code Visit OBSV E&M: 93827 Observation care discharge
== END 2019-11-19 11:10 | disposition home or self-care (01) ==
LOC: ED 19:24 → PCU 19:32
PROVIDERS: Admitting Provider Student in an Organized Health Care Education/Training Program; Emergency Provider Emergency Medicine; PCP Family Medicine; Visit Provider Internal Medicine
DX: R07.89 Other chest pain (principal); R42 Dizziness and giddiness; R11.0 Nausea; I25.2 Old myocardial infarction; K21.9 Gastro-esophageal reflux disease without esophagitis; I25.10 Atherosclerotic heart disease of native coronary artery without angina pectoris; R91.1 Solitary pulmonary nodule; I10 Essential (primary) hypertension; J44.9 Chronic obstructive pulmonary disease, unspecified; E78.5 Hyperlipidemia, unspecified; I51.81 Takotsubo syndrome; Z79.899 Other long term (current) drug therapy; E87.1 Hypo-osmolality and hyponatremia
CPT/HCPCS: 36415; 71045; 78452; 80048; 84484; 85025; 85379; 93005; 93017; 96361; 96374; 96375; 99218; 99285; A9500; J7030; A4216; G0378; J2405

== ENCOUNTER → 2019-11-27 10:10 | Outpatient (CLI) | payer MEDICARE, OTHER, SELFPAY ==
[2019-10-08 13:45] VITALS: BMI 20.5
[2019-11-18 20:17] VITALS: BMI 19.6
--- NOTE | 2019-11-27 10:14 | BD_ITS ---
STUDY: DUAL ENERGY X-RAY ABSORPTIOMETRY / DXA REASON FOR EXAM: Female, 74 years old. Age of surgical noy- 44. Pat is 117.9# and 63.5'' a loss of 2.5 per pat. Past hx of using and estrogen patch. Takes 1200mg calcium. Has been on Evista for 5 years now. Hx of a left hip fx with surgery, a left clavi desmond, lt shoulder, right foot fx'' s, along with hx of a T8 kyphoplasty. TECHNIQUE: Bone Mineral Density (BMD) measurements of lumbar spine and right hip were obtained. COMPARISON: Comparison is made with prior study dated March 14, 2017. FINDINGS: Lumbar Spine (L1-L4): g/cm2 (0.815) / T-score (-3.0) / Z-score (-1.3) Findings are suggestive of osteoporosis with a high fracture risk. Increased kyphosis. 50-60% loss of height of a lower dorsal vertebrae. Right Femur Total: g/cm2 (0.567) / T-score (-3.5) / Z-score (-1.9) Right Femoral Neck: g/cm2 (0.550) / T-score (-3.5) / Z-score (-1.7) The T-Scores on the most recent prior examination were: Lumbar Spine (L1-L4): There has been improvement of bone density since the previous examination. Right Femur Total: which represents a worsening of 5.7%. BD/Dexa Bone Density Study IMPRESSION: The patient is considered osteoporotic as outlined below according to World Braul[employer] Organization (WHO) criteria with a high fracture risk. There has been worsening of bone density since the previous examination. Reference Information: The T-score is the number of standard deviations above or below the standard which is normal for young adults at their peak bone mineral density. The World Health Organization (WHO) interprets the T-scores as follows: Above -1 Normal bone density Between -1 and -2.5 Osteopenia Equal to / or below -2.5 Osteoporosis As a practical clinical guideline, osteopenia may be graded as follows: Mild -1 through -1.5 Moderate -1.6 through -2.0 Severe -2.1 through -2.4 The Z-score is the number of standard deviations above or below age-matched controls. A Z-score of less than -1.5 would be considered abnormal. References: 1. NIH Osteoporosis and Related Bone Diseases http://www.osteo.org 2. International Society for Clinical Densitometry http://www.iscd.org 3. National Osteoporosis Foundation http://www.nof.org Electronically Signed: Klever Law, at 14:24 EST , Service support ,
--- NOTE | 2019-11-27 10:14 | BI_ITS ---
MAMMOGRAPHY - BILATERAL SCREENING REASON FOR EXAM: Female, 74 years old. Routine annual screening examination. PERTINENT HISTORY: Aunt with breast cancer. TECHNIQUE: Digital bilateral breast sam (3D mammographic acquisition) in the CC and MLO projections. 2-D mediolateral oblique (MLO) and craniocaudad (CC) views of both breasts were obtained. CAD: Full Field Digital Mammography with Computer Added Detection was performed. COMPARISON: Comparison is made with prior examination dated April 12, 2018 and October 03, 2016. FINDINGS: Breast Composition: The breasts are heterogeneously dense, which may obscure small masses. There are no dominant masses or suspicious calcifications. Stable calcification in the right axillary region most likely representing calcification of a skin lesion. No other significant abnormalities are identified. BI/SCREEN MAMM (CAD) W/SAM BILAT IMPRESSION: Stable bilateral screening mammogram. Yearly follow-up mammogram recommended. (A) ASSESSMENT CATEGORY: BIRADS Category 2: Benign. A letter regarding these results will be sent to the patient by the facility within 30 days. Approximately 10% of breast cancers are not detected by mammography. A normal mammogram should not delay biopsy of a clinically suspicious abnormality. [id number] Electronically Signed: Klever Law, at 12:13 EST , Service support ,
== END ==
PROVIDERS: PCP Family Medicine; Referring Provider Family Medicine; Visit Provider Family Medicine
DX: Z12.31 Encounter for screening mammogram for malignant neoplasm of breast (principal); M81.0 Age-related osteoporosis without current pathological fracture
CPT/HCPCS: 77063; 77067; 77080

== ENCOUNTER → 2020-01-28 | Outpatient (CLI) | payer MEDICARE, OTHER, SELFPAY ==
[2019-12-30 06:10] VITALS: BMI 19.6
== END | disposition home or self-care (01) ==
LOC: LABSPEC 14:49
PROVIDERS: PCP Family Medicine; Referring Provider Otolaryngology; Visit Provider Otolaryngology
DX: D10.4 Benign neoplasm of tonsil (principal)

== ENCOUNTER → 2020-01-30 13:21 | Outpatient (CLI) | payer MEDICARE, OTHER, SELFPAY ==
[2019-12-30 06:10] VITALS: BMI 19.6
--- NOTE | 2020-01-30 13:25 | CT_ITS ---
STUDY: CT SOFT TISSUE NECK WITH CONTRAST REASON FOR EXAM: Female, 74 years old. TONSIL CA, 1/3 OF TONGUE AND 26 LYMPH NODES REMOVED RADIATION DOSAGE (If Supplied By Facility): CTDIvol = ( 8.63 ) mGy, DLP = ( 219.83 ) mGycm TECHNIQUE: The patient was scanned in a multi-detector CT scanner. High resolution transaxial imaging was performed following intravenous administration of IV 75mL Isovue-370. Sagittal and coronal images were reconstructed. Individualized dose optimization techniques were used for this CT. COMPARISON: None. FINDINGS: The patient is status post right radical dissection. Normal visualized nasopharynx. Normal retropharyngeal space. Normal perivertebral space. Normal visualized bilateral faucial tonsils. The visualized tongue, tongue base and oropharynx are normal. The patient is status post resection of the right parotid gland. Normal epiglottis, bilateral vallecula and hypopharynx. The pre-epiglottic and paraglottic adipose spaces are normal. Normal visualized bilateral piriform sinuses, aryepiglottic folds, vocal cords, and arytenoid-cricoid articulations. Normal subglottic trachea. Normal bilateral lobes of the thyroid gland. Normal visualized pulmonary apices. Normal visualized paranasal sinuses. There is mild degenerative changes of the cervical spine. CT/Soft Tissue Neck WITH Contrast IMPRESSION: Status post right neck dissection. No evidence of recurrent disease. Electronically Signed: Klever Law, at 14:27 EDT , Service support ,
== END ==
PROVIDERS: PCP Family Medicine; Referring Provider Otolaryngology; Visit Provider Otolaryngology
DX: D10.4 Benign neoplasm of tonsil (principal)
CPT/HCPCS: 70491; Q9967; A4216

== ENCOUNTER 2020-02-06 06:26 | Day surgery (SDC) | payer MEDICARE, OTHER, SELFPAY ==
[2019-12-30 06:10] VITALS: BMI 19.6
[2020-02-06] VITALS (10 sets, daily range): BP systolic 133–187; BP diastolic 74–113; PULSE 68–104; RESP 14–18; TEMP 36.4–37.2; O2SAT 92–100; BMI 19.6
--- NOTE | 2020-02-06 | TONS_PTH ---
PATIENT: ALEXY DOMINGUEZ LOC: [facility] [place] U#:[id number] AGE/SX: 74/F ROOM: RE02/06/[address]: Dr. Kmuar Deluna MD : 1945 BED: DIS: 02/06/2020 SPEC #: [id number] RECD: 02/06/20 08:20 STATUS: JULIAN REQ #: [id number] MONIQUE: 02/06/20 00:[address]: Kumar Deluna DEPT: SURGICAL PATHOLOGY RECD BY: Vinita Almonte ENTERED: 02/06/20 09:01 SP TYPE: TONSILS OTHR DR: Dr. Malcolm Mariscal MD Tissues: A - Tonsil, NOS B - Tonsil, NOS Procedures: Frozen Section (charge) Surgery Specimen Level III HEADER OPERATION: Bilateral tonsillectomy, frozen section on right tonsil PRE-OP DIAGNOSIS: Benign neoplasm of right tonsil; history of malignant neoplasm of tongue TISSUE SUBMITTED: A - Right tonsil for FS at 0817, B - Left tonsil FROZEN SECTION DIAGNOSIS A. Right tonsil, tonsillectomy: Negative for malignancy. SJ:alexis 02/06/20 MICROSCOPIC DIAGNOSIS A. Right tonsil, tonsillectomy: Benign lymphoid hyperplasia. Benign salivary gland tissue. Epithelial inclusion cyst. B. Left tonsil, tonsillectomy: Benign lymphoid hyperplasia. Benign salivary gland tissue. AM:alexis 02/09/20 COMMENT Case has been reviewed in consultation with Dr. Armstrong who concurs with the above diagnosis. IDC:[id number] MICROSCOPIC DESCRIPTION Slides are reviewed. GROSS DESCRIPTION A - Received fresh for frozen section diagnosis labeled with the patient's name is a specimen designated right tonsil. The specimen consists of an ovoid piece of tonsil that weighs 1.4 gm and measures 2 x 1.5 x 0.5 cm. The external surface is pink-vincent, smooth, glistening and somewhat lobulated. Focally it is hemorrhagic, granular and bears cautery artifact. Serial cross sections through the tonsil reveal normal tonsillar architecture. The specimen is inked, serially sectioned and submitted entirely for frozen section diagnosis in two cassettes. B - Received in formalin labeled with the patient's name and designated left tonsil. The specimen consists of a tonsil that weighs 1.2 gm and measures 1.5 x 1 x 0.5 cm. The external surface is pink-vincent, smooth, glistening and somewhat lobulated. Focally it is hemorrhagic, granular and bears cautery artifact. Serial cross sections through the tonsil reveal normal tonsillar architecture. The specimen is inked, serially sectioned and submitted entirely for frozen section diagnosis in two cassettes. / SJ:alexis 02/06/20 TC:5 CPT: 65676 x2, 45859
[2020-02-06 06:46] LABS: Hematocrit 38.6 % (37-47); Hemoglobin 12.3 g/dL (12.0-15.0); Mean Corp Hgb Conc 31.9 g/dL (32-36); Mean Corpuscular Hgb 29.7 pg (27.0-32.0); Mean Corpuscular Volume 93.2 fL (81-99); Mean Platelet Vol. 8.1 fl (6.2-12.0); Platelet Count 335 K/mm3 (150-450); RBC Distribution Width CV 14.1 % (11.6-14.6); RBC Distribution Width SD 47.8 fl (35.1-43.9); Red Blood Count 4.14 M/mm3 (4.2-5.4); White Blood Count 4.7 K/mm3 (4.4-11.0)
[2020-02-06 06:54] LABS: International Normalized Ratio 0.9; Prothrombin Time (Protime)PT. 11.7 SECONDS (11.7-14.9)
[2020-02-06 06:55] LABS: Partial Thromboplast Time 28.1 Seconds (24.1-36.2)
[2020-02-06] MEDS: Lactated Ringers 1,000 ML 100 ML IV ×2 (07:13→09:42)
--- NOTE | 2020-02-06 08:42 | PCM.OPRPT ---
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 Clinical examination did show some mild fullness of the right tonsil although CT scanning was interpreted as negative there did also appear to be some verification of the soft tissue asymmetry and given her history, right otalgia, and her personal impression that there was a mass the above procedure was offered for definitive evaluation. The risks, alternatives, potential complications, and benefits were discussed at length and any questions answered to the patient and/or caregiver's satisfaction. Witnessed informed consent was obtained in the office, and the patient and/or caregiver was agreeable to proceed. Procedure went as follows: The patient was identified in the preoperative holding, brought to the operating room, was placed under general anesthesia and intubated. When appropriate anesthesia was obtained, the head of bed was rotated and the patient prepped and draped in usual sterile fashion. A Malaika Rob mouthgag was then placed and the patient suspended from the Valerio stand. The oral cavity was examined and noted to have 2+ cryptic tonsillar hypertrophy. Beginning on the right side, the right tonsil was then grasped with a curved tenaculum and dissected from the underlying capsule with monopolar cautery. This was then sent as specimen for frozen section evaluation. This was not found to demonstrate any malignant process. Similar procedure was then completed on the contralateral side. The tongue base, floor of mouth, lateral and posterior pharyngeal wall mucosa, and visualized portions of the nasopharynx were additionally carefully examined without finding any suspicious lesion. The patient was then returned to anesthesia, revived and extubated having tolerated the procedure well. Type of Anesthesia:: General Anesthesiologist: Kumar Gonzalez Special Medications: none Specimen's removed: bilateral tonsils Drains: none Estimated Blood Loss (mL): 0 mL Fluids Replaced: 800 mL Grafts/Implants Used: none - Complications none - Admit VTE Documentation VTE Present on Admission: No VTE Mechan Device Prophylaxis: SCD's VTE Pharm Prophylaxis ordered?: No
--- NOTE | 2020-02-06 08:49 | DCINST_ITS ---
Discharge Diet: No Restrictions Discharge Activity: Return to Normal Activity Call your doctor if your incision/area has: Sudden Increased Bleeding, Increased Pain/ Swelling Call your doctor if you observe: Fever of 101 or Higher, Uncontrolled pain Allergies/Adverse Reactions: Allergies codeine Adverse Reaction (Verified 02/04/20 08:26) HEART RACES indomethacin [From Indocin] Adverse Reaction (Verified 02/04/20 08:26) Abd cramps/diarrhea indomethacin sodium [From Indocin] Adverse Reaction (Verified 02/04/20 08:26) Abd cramps/diarrhea levofloxacin [From Levaquin] Adverse Reaction (Verified 02/04/20 08:26) INCREASED BLOOD PRESSURE nitrofurantoin [From Macrobid] Adverse Reaction (Verified 02/04/20 08:26) Nausea/Vom/Diarrhea propoxyphene napsylate [From Darvocet-N 100] Adverse Reaction (Verified 02/04/20 08:26) PASSES OUT steroids Adverse Reaction (Uncoded 02/04/20 08:26) high blood pressure Medications to take at Discharge Calcium Carb/Vitamin D3/Vit K1 [Citracal Soft Chew] 2 ea PO QHS 12/08/14 Lorazepam [Ativan] 0.25 mg PO DAILY PRN PRN 12/08/14 Albuterol Inhaler [Ventolin Hfa] 1 - 2 puff INHALATION Q6H PRN PRN #1 inhaler 05/30/17 cranberry fruit concentrate 250 mg chewable tablet 250 mg PO DAILY tab 10/29/17 levocetirizine 5 mg tablet 5 mg PO QHS PRN tab 10/29/17 sucralfate 1 gram tablet 1 gm PO QHS PRN tab 10/29/17 metoprolol succinate 50 mg tablet,extended release 24 hr 50 mg PO DAILY #90 tab 03/05/19 Acetaminophen [Tylenol Arthritis] 650 mg PO QHS PRN PRN 07/16/19 Nitroglycerin (INPATIENT USE) [Nitrostat] 0.4 mg SUBLINGUAL Q5M PRN 07/16/19 pravastatin 80 mg tablet 80 mg PO QHS #90 tab 09/05/19 pantoprazole 40 mg tablet,delayed release 40 mg PO DAILY #90 tab 10/08/19 Ranitidine [Zantac] 150 mg PO DAILY PRN PRN 11/18/19 amlodipine 5 mg tablet 5 mg PO DAILY #90 tab 01/09/20 Orders to be completed after discharge: Basic Metabolic Profile (BMP) Time Frame: 02/06/20, Facility: [facility], Location: Laboratory Liver Profile Time Frame: 02/06/20, Facility: [facility], Location: Laboratory Primary Care Physician: Malcolm Mariscal MD [Primary Care Provider] - Test Results: Test results from this visit will be discussed in further detail at your follow- up appointment, if applicable. Please Follow Up With: Kumar Deluna MD When: 2 weeks
[2020-02-06 09:07] LABS: AST(SGOT) 23 U/L (15-37); Alanine Aminotransfer ALT/SGPT 31 U/L (13-56); Albumin, Serum 4.3 g/dL (3.2-5.0); Alkaline Phosphatase 78 U/L (45-117); Anion Gap 6 (5-15); BUN 11 mg/dL (7-18); BUN/Creat Ratio 11.8 RATIO (10-20); Bilirubin, Direct 0.16 mg/dL (0.00-0.30); Calcium,Total 9.2 mg/dL (8.5-10.1); Chloride 98 mmol/L (98-107); Creatinine, Serum 0.93 mg/dL (0.55-1.02); EST Glomerular Filtration Rate 63 mL/min (>60); Est Glom Filt Rate - Afr Amer 76 mL/min (>60); Estimated Creatinine Clearance 44.91 ml/min; Globulin 3.4 g/dL (2.2-4.2); Glucose 102 mg/dL (74-106); Potassium 3.9 mmol/L (3.5-5.1); Protein, Total 7.7 g/dL (6.4-8.2); Sodium Level 134 mmol/L (136-145)
[2020-02-06] MEDS: Acetaminophen 500 MG Tablet PO (13:15)
== END 2020-02-06 13:28 | disposition home or self-care (01) ==
LOC: SDC 06:26 → AC 06:28
PROVIDERS: Anesthesiology; PCP Family Medicine; Referring Provider Otolaryngology; Visit Provider Otolaryngology
PROC: (CPT 42826; principal; 2020-02-06 07:50)
DX: J35.01 Chronic tonsillitis (principal); Z85.89 Personal history of malignant neoplasm of other organs and systems; Z85.810 Personal history of malignant neoplasm of tongue; Z11.59 Encounter for screening for other viral diseases; I10 Essential (primary) hypertension; K21.9 Gastro-esophageal reflux disease without esophagitis; E78.00 Pure hypercholesterolemia, unspecified; I51.81 Takotsubo syndrome; I25.2 Old myocardial infarction; J44.9 Chronic obstructive pulmonary disease, unspecified; Z78.0 Asymptomatic menopausal state; Z86.2 Personal history of diseases of the blood and blood-forming organs and certain disorders involving the immune mechanism; Z86.73 Personal history of transient ischemic attack (TIA), and cerebral infarction without residual deficits; Z87.11 Personal history of peptic ulcer disease; Z87.440 Personal history of urinary (tract) infections; Z79.899 Other long term (current) drug therapy
CPT/HCPCS: 42826; 36415; 80048; 80076; 85027; 85610; 85730; 87635; 88304; 88331; G2023; J7120; J2405; U0002

== ENCOUNTER → 2020-04-21 | Outpatient (CLI) | payer MEDICARE, OTHER, SELFPAY ==
[2020-04-08 09:33] VITALS: BMI 19.4
== END | disposition home or self-care (01) ==
PROVIDERS: PCP Family Medicine; Referring Provider Family Medicine; Visit Provider Family Medicine
DX: R30.0 Dysuria (principal)
CPT/HCPCS: 87086; 87088

== ENCOUNTER → 2020-06-29 09:50 | Outpatient (CLI) | payer MEDICARE, OTHER, SELFPAY ==
[2020-02-06 06:54] VITALS: BMI 19.6
[2020-04-08 09:33] VITALS: BMI 19.4
--- NOTE | 2020-06-30 08:16 | PFT ---
INTRODUCTION: The patient is a 74-year-old female that presents for pulmonary function studies secondary to a diagnosis of shortness of breath. Respiratory therapy reports good patient effort. Bronchodilators were used during testing. INTERPRETATION: Forced expiration spirometry demonstrates no evidence of a large airways obstructive ventilatory defect. There was no significant response to aerosolized bronchodilators. Spirograms are of good quality and plateau normally. Body plethysmography was performed and reveals lung volumes to be within normal limits. Diffusing capacity by single breath CO is also within normal limits at 87% of predicted. When compared to previous pulmonary function studies from September 2019, there has been a 12% improvement in FEV1 along with a 16% improvement in DLCO. IMPRESSION: Normal spirometry, lung volumes and diffusing capacity. There has been improvement in the patient's PFTs since September 2019, as noted above.
== END ==
PROVIDERS: PCP Family Medicine; Referring Provider Nurse Practitioner Acute Care; Visit Provider Nurse Practitioner Acute Care
DX: R06.02 Shortness of breath (principal)
CPT/HCPCS: 94060; 94726; 94729

== ENCOUNTER → 2020-08-12 10:47 | Outpatient (CLI) | payer MEDICARE, OTHER, SELFPAY ==
[2020-08-12 12:22] LABS: AST(SGOT) 18 U/L (15-37); Alanine Aminotransfer ALT/SGPT 29 U/L (13-56); Albumin, Serum 4.2 g/dL (3.2-5.0); Alkaline Phosphatase 92 U/L (45-117); Bilirubin, Direct 0.13 mg/dL (0.00-0.30); Cholesterol 209 mg/dL (200); Globulin 3.3 g/dL (2.2-4.2); High Density Lipoprotein 87 mg/dL; Protein, Total 7.5 g/dL (6.4-8.2); Triglycerides 71 mg/dL; Very Low Density Lipoprotein 14 mg/dL (5-40)
== END ==
PROVIDERS: PCP Family Medicine; Referring Provider Physician Assistant Medical; Visit Provider Physician Assistant Medical
DX: E78.5 Hyperlipidemia, unspecified (principal)
CPT/HCPCS: 36415; 80061; 80076

== ENCOUNTER → 2020-12-27 11:14 | Outpatient (CLI) | payer MEDICARE, OTHER, SELFPAY ==
[2020-12-27 12:48] LABS: Anion Gap 2 (5-15); BUN 10 mg/dL (7-18); BUN/Creat Ratio 13.3 RATIO (10-20); Calcium,Total 9.1 mg/dL (8.5-10.1); Chloride 95 mmol/L (98-107); Cholesterol 200 mg/dL (200); Creatinine, Serum 0.75 mg/dL (0.55-1.02); EST Glomerular Filtration Rate 80 mL/min (>60); Est Glom Filt Rate - Afr Amer 97 mL/min (>60); Glucose 94 mg/dL (74-106); High Density Lipoprotein 115 mg/dL; Potassium 4.7 mmol/L (3.5-5.1); Sodium Level 128 mmol/L (136-145); Triglycerides 59 mg/dL; Very Low Density Lipoprotein 12 mg/dL (5-40)
== END ==
PROVIDERS: PCP Family Medicine; Visit Provider Family Medicine
DX: I10 Essential (primary) hypertension (principal)
CPT/HCPCS: 36415; 80048; 80061

== ENCOUNTER → 2021-02-24 11:49 | Outpatient (CLI) | payer MEDICARE, OTHER, SELFPAY ==
--- NOTE | 2021-02-24 11:59 | BI_ITS ---
MAMMOGRAPHY - BILATERAL SCREENING REASON FOR EXAM: Female, 75 years old. Routine annual screening examination. PERTINENT HISTORY: Aunt with breast cancer. TECHNIQUE: Digital bilateral breast sam (3D mammographic acquisition) in the CC and MLO projections. 2-D mediolateral oblique (MLO) and craniocaudad (CC) views of both breasts were obtained. CAD: Full Field Digital Mammography with Computer Added Detection was performed. COMPARISON: Comparison is made with prior study of 11/27/2019 and 04/12/2018. FINDINGS: Breast Composition: The breasts are heterogeneously dense, which may obscure small masses. There are no dominant masses or suspicious calcifications. No other significant abnormalities are identified. There has been no significant change since the prior study. BI/SCRN MAMM (CAD)W/SAM BILAT IMPRESSION: Stable bilateral screening mammogram. Yearly follow-up mammogram recommended. (A) ASSESSMENT CATEGORY: BIRADS Category 1: Negative. A letter regarding these results will be sent to the patient by the facility within 30 days. Approximately 10% of breast cancers are not detected by mammography. A normal mammogram should not delay biopsy of a clinically suspicious abnormality. [id number] Electronically Signed: Klever Law MD at 12:27 EDT , Service support ,
== END ==
PROVIDERS: PCP Family Medicine; Referring Provider Family Medicine; Visit Provider Family Medicine
DX: Z12.31 Encounter for screening mammogram for malignant neoplasm of breast (principal)
CPT/HCPCS: 77063; 77067

== ENCOUNTER → 2021-05-23 | Outpatient (CLI) | payer MEDICARE, OTHER, SELFPAY | END | disposition home or self-care (01) | LOC: LABSPEC 12:21 | PROVIDERS: PCP Family Medicine; Visit Provider Nurse Practitioner Family | DX: N39.0 Urinary tract infection, site not specified (principal) | CPT/HCPCS: 87086; 87088; 87186 ==

== ENCOUNTER → 2021-06-06 12:26 | Outpatient (CLI) | payer MEDICARE, OTHER, SELFPAY | LOC: LAB 12:30 → MTLAB 12:31 | PROVIDERS: PCP Family Medicine; Referring Provider Family Medicine; Visit Provider Family Medicine | DX: N39.0 Urinary tract infection, site not specified (principal) | CPT/HCPCS: 87086; 87088 ==

== ENCOUNTER → 2021-07-14 11:08 | Outpatient (CLI) | payer MEDICARE, OTHER, SELFPAY ==
[2021-07-14 12:36] LABS: Anion Gap 7 (5-15); BUN 14 mg/dL (7-18); BUN/Creat Ratio 17.6 RATIO (10-20); Calcium,Total 8.8 mg/dL (8.5-10.1); Chloride 93 mmol/L (98-107); Cholesterol 206 mg/dL (200); Creatinine, Serum 0.79 mg/dL (0.55-1.02); EST Glomerular Filtration Rate 75 mL/min (>60); Est Glom Filt Rate - Afr Amer 91 mL/min (>60); Glucose 99 mg/dL (74-106); High Density Lipoprotein 89 mg/dL; Potassium 4.2 mmol/L (3.5-5.1); Sodium Level 129 mmol/L (136-145); Triglycerides 69 mg/dL; Very Low Density Lipoprotein 14 mg/dL (5-40)
== END ==
PROVIDERS: PCP Family Medicine; Referring Provider Family Medicine; Visit Provider Family Medicine
DX: I10 Essential (primary) hypertension (principal)
CPT/HCPCS: 36415; 80048; 80061

== ENCOUNTER → 2021-08-25 09:46 | Outpatient (CLI) | payer MEDICARE, OTHER, SELFPAY ==
[2021-02-28 07:58] VITALS: BMI 19.9
--- NOTE | 2021-08-26 10:04 | PFT ---
INTRODUCTION: The patient is a 75-year-old female that presents for pulmonary function studies secondary to a diagnosis of shortness of breath. Respiratory therapy reported good patient effort. Bronchodilators were used during testing. INTERPRETATION: Forced expiration spirometry demonstrates no evidence of a large airways obstructive ventilatory defect. There was no significant response to aerosolized bronchodilators. Spirograms are of good quality and plateau normally. Body plethysmography was performed and reveals lung volumes to be within normal limits. Diffusing capacity by single breath CO is also within normal limits. IMPRESSION: Normal pulmonary function studies.
== END ==
PROVIDERS: PCP Family Medicine; Referring Provider Nurse Practitioner Acute Care; Visit Provider Nurse Practitioner Acute Care
DX: E88.01 Alpha-1-antitrypsin deficiency (principal)
CPT/HCPCS: 94060; 94726; 94729

== ENCOUNTER → 2021-11-09 11:23 | Outpatient (CLI) | payer MEDICARE, OTHER, SELFPAY ==
[2021-11-09 15:16] LABS: Urine Sodium 39 mmol/L (Not Establ.)
[2021-11-09 15:24] LABS: Osmolality, Serum 274 mOsm/KG (280-301); Osmolality, Urine 169 mOsm/KG
[2021-11-09 15:40] LABS: Anion Gap 6 (5-15); BUN 7 mg/dL (7-18); BUN/Creat Ratio 9.6 RATIO (10-20); Calcium,Total 9.2 mg/dL (8.5-10.1); Chloride 91 mmol/L (98-107); Creatinine, Serum 0.73 mg/dL (0.55-1.02); EST Glomerular Filtration Rate 83 mL/min (>60); Est Glom Filt Rate - Afr Amer 100 mL/min (>60); Glucose 102 mg/dL (74-106); Potassium 4.1 mmol/L (3.5-5.1); Sodium Level 127 mmol/L (136-145); T4 Free Direct 0.98 ng/dL (0.76-1.46); Thyroid Stim Hormone (TSH) 1.58 uIU/mL (0.358-3.74)
[2021-11-09 17:07] LABS: Vitamin D,25 Hydroxy 39.3 ng/mL
== END ==
PROVIDERS: PCP Family Medicine; Referring Provider Internal Medicine Endocrinology, Diabetes & Metabolism; Visit Provider Internal Medicine Endocrinology, Diabetes & Metabolism
DX: E87.1 Hypo-osmolality and hyponatremia (principal); I10 Essential (primary) hypertension; E55.9 Vitamin D deficiency, unspecified
CPT/HCPCS: 36415; 80048; 82306; 82533; 83930; 83935; 84300; 84439; 84443

== ENCOUNTER 2022-01-11 10:47 | Outpatient (CLI) | payer MEDICARE, OTHER, SELFPAY ==
[2022-01-11 12:38] LABS: Anion Gap 8 (5-15); BUN 8 mg/dL (7-18); BUN/Creat Ratio 10.8 RATIO (10-20); Calcium,Total 9.2 mg/dL (8.5-10.1); Chloride 93 mmol/L (98-107); Cholesterol 228 mg/dL (200); Creatinine, Serum 0.74 mg/dL (0.55-1.02); EST Glomerular Filtration Rate 82 mL/min (>60); Est Glom Filt Rate - Afr Amer 99 mL/min (>60); Glucose 97 mg/dL (74-106); High Density Lipoprotein 92 mg/dL; Potassium 4.1 mmol/L (3.5-5.1); Sodium Level 129 mmol/L (136-145); Triglycerides 115 mg/dL; Very Low Density Lipoprotein 23 mg/dL (5-40)
== END 2022-01-11 23:59 | disposition home or self-care (01) ==
LOC: MFPLAB 10:48
PROVIDERS: PCP Family Medicine; Referring Provider Family Medicine; Visit Provider Family Medicine
DX: I10 Essential (primary) hypertension (principal)
CPT/HCPCS: 36415; 80048; 80061

== ENCOUNTER → 2022-09-12 | Outpatient (CLI) | payer MEDICARE, OTHER, SELFPAY ==
--- NOTE | 2022-09-12 14:48 | PFTCOMP_ITS ---
COMPLETE PULMONARY FUNCTION TEST INTERPRETATION Brief HPI: Patient is a 76-year-old female, currently under the care of myself, who presents to [facility] for complete pulmonary function tests secondary to diagnosis of COPD. Respiratory therapist reports good effort and reproducible results. Interpretation: Forced expiration spirometry shows a moderately severe large airways obstructive ventilatory defect with an FEV1 of 57% predicted. There is no significant bronchodilator response by strict ATS criteria. Spirograms are of good quality and plateau slowly, indicating slowly emptying areas of the lungs. The respiratory flow volume loop shows decreased expiratory flow rates at all lung volumes consistent with airway obstruction. Lung volumes by body plethysmography show a slightly decreased total lung capacity at 3.98 L, 82% predicted. All other lung volumes are reduced symmet rically. Diffusion capacity by carbon monoxide is normal at 91% predicted. The airway resistance is elevated. Compared to previous pulmonary function tests from 08/25/2021, a decrease in FEV1 by 15%. Impression: Irreversible moderately severe large airways obstructive ventilatory defect with slightly reduced lung volumes, but preserved diffusing capacity
== END | disposition home or self-care (01) ==
PROVIDERS: PCP Family Medicine; Referring Provider Nurse Practitioner Acute Care; Visit Provider Nurse Practitioner Acute Care
DX: J44.9 Chronic obstructive pulmonary disease, unspecified (principal); J98.8 Other specified respiratory disorders
CPT/HCPCS: 94060; 94726; 94729

== ENCOUNTER → 2023-02-14 | Outpatient (CLI) | payer MEDICARE, OTHER, SELFPAY ==
[2023-02-14 13:32] LABS: Anion Gap 9 (5-15); BUN 6 mg/dL (7-18); Calcium,Total 9.3 mg/dL (8.5-10.1); Chloride 92 mmol/L (98-107); Cholesterol 209 mg/dL (200); Creatinine, Serum 0.75 mg/dL (0.55-1.02); EST Glomerular Filtration Rate 80 mL/min (>60); Est Glom Filt Rate - Afr Amer 96 mL/min (>60); Glucose 98 mg/dL (74-106); High Density Lipoprotein 86 mg/dL; Potassium 4.9 mmol/L (3.5-5.1); Sodium Level 128 mmol/L (136-145); Triglycerides 99 mg/dL; Very Low Density Lipoprotein 20 mg/dL (5-40)
[2023-02-15 09:47] LABS: ALB/GLOB Ratio 1.4 RATIO (0.9-2.4); AST(SGOT) 25 U/L (15-37); Alanine Aminotransfer ALT/SGPT 28 U/L (13-56); Albumin, Serum 4.3 g/dL (3.2-5.0); Alkaline Phosphatase 101 U/L (45-117); Protein, Total 7.3 g/dL (6.4-8.2)
== END | disposition home or self-care (01) ==
LOC: MFPLAB 11:10
PROVIDERS: PCP Family Medicine; Visit Provider Family Medicine
DX: I10 Essential (primary) hypertension (principal); R63.4 Abnormal weight loss
CPT/HCPCS: 36415; 80048; 80053; 80061

== ENCOUNTER → 2023-03-06 | Outpatient (CLI) | payer MEDICARE, OTHER, SELFPAY ==
--- NOTE | 2023-03-06 09:37 | BI_ITS ---
MAMMOGRAPHY - BILATERAL SCREENING REASON FOR EXAM: Female, 77 years old. Routine annual screening examination. PERTINENT HISTORY: Aunt with breast cancer. TECHNIQUE: Digital bilateral breast sam (3D mammographic acquisition) in the CC and MLO projections. 2-D mediolateral oblique (MLO) and craniocaudad (CC) views of both breasts were obtained. CAD: Full Field Digital Mammography with Computer Added Detection was performed. COMPARISON: Comparison is made with prior study dated February 24, 2021 and November 27, 2019. FINDINGS: Breast Composition: The breasts are heterogeneously dense, which may obscure small masses. There are no dominant masses or suspicious calcifications. No other significant abnormalities are identified. There has been no significant change since the prior study. BI/SCRN MAMM (CAD)W/SAM BILAT IMPRESSION: Stable bilateral screening mammogram. Yearly follow-up mammogram recommended. (A) ASSESSMENT CATEGORY: BIRADS Category 1: Negative. A letter regarding these results will be sent to the patient by the facility within 30 days. Approximately 10% of breast cancers are not detected by mammography. A normal mammogram should not delay biopsy of a clinically suspicious abnormality. [id number] Electronically Signed: Klever Law MD at 10:46 EDT ,
== END | disposition home or self-care (01) ==
LOC: OPBI 09:36
PROVIDERS: PCP Family Medicine; Visit Provider Family Medicine
DX: Z00.00 Encounter for general adult medical examination without abnormal findings (principal); Z12.31 Encounter for screening mammogram for malignant neoplasm of breast; Z80.3 Family history of malignant neoplasm of breast
CPT/HCPCS: 77063; 77067

== ENCOUNTER → 2023-03-20 | Outpatient (CLI) | payer MEDICARE, OTHER, SELFPAY ==
--- NOTE | 2023-03-20 13:33 | ST.MBS ---
Modified Barium Swallow - Patient Information Study Date: 03/20/23 Study Time: 13:00 Direct Billable Minutes: 90 Total Minutes procedure & reportin Diagnosis: GERD (K21.9), COPD (J44.9) Referring Physician: Malcolm Mariscal Reason for Referral: Objectively assess swallow function, risk for aspiration, and determine recommendations for least restrictive diet textures and compensatory strategies to improve safety of swallow. Current Diet Ordered: Regular / Thin Mental Status: WNL Respiratory Status: Oxygenating on Room Air - Penetration-Aspiration Scale Penetration-Aspiration Scale: OBJECTIVE ASSESSMENT OF SWALLOW FUNCTION (QUANTITATIVE ? PER TRIAL): PENETRATION / ASPIRATION SCALE (MCDONALD): 1 = does not enter airway 2 = enters airway/above vocal folds/ejected 3 = enters airway/above vocal folds/not ejected 4 = enters airway/contacts vocal folds/ejected 5 = enters airway/contacts vocal folds/not ejected 6 = enters airway/below vocal folds/ejected 7 = enters airway/below vocal folds/not ejected despite effort 8 = enters airway/below vocal folds/no effort VIDEOFLOROSCOPIC SCALE SCORE (MCDONALD): Grade I = aspiration of material that has penetrated into the laryngeal vestibule, intact cough reflex Grade II = aspiration < 10 % of the bolus, intact cough reflex Grade III = aspiration of < 10 % of the bolus, reduced cough reflex or aspiration of > 10 % of the bolus, intact cough reflex Grade IV = aspiration of > 10 % of the bolus, reduced cough reflex - Penetration-Aspiration Scale Score Thin Liquid via teaspoon Result: 1= does not enter airway Thin Liquid via small single sip from cup Result: 1= does not enter airway Thin Liquid via small single sip from cup Trial 2 Result: 1= does not enter airway Thin Liquid via sequential sips from cup Result: 1= does not enter airway Thin Liquid via single sip from straw Result: 1= does not enter airway [place] Thick Liquid via small single sip from cup Result: 1= does not enter airway [place] Thick Liquid via small single sip from cup Result: 1= does not enter airway Pudding Result: 1= does not enter airway Cookie Result: 1= does not enter airway - Oral Phase Labial Seal: No Labial Escape Tongue Control During Bolus Hold: Posterior escape of greater than half of bolus Bolus Preparation/Mastication: Slow prolonged chewing/mashing with complete recollection Bolus Transport/Lingual Motion: Delayed initiation of tongue motion Oral Residue: Residue collection on oral structures - Pharyngeal Phase Initiation of Pharyngeal Swallow: Bolus head at posterior laryngeal surgace of epiglottis Soft Palate Elevation: No bolus between soft palate and pharyngeal wall Laryngeal Elevation: Comp. Superior move thyroid cart w/comp. apprx arytenoid cart-epig pet Anterior Hyoid Excursion: Complete anterior movement Epiglottic Movement: Complete inversion Laryngeal Vestibule Closure at Height of Swallow: Complete; no air/contrast in laryngeal vestibule Pharyngeal Stripping Wave: Present - complete Pharyngoesophageal Segment Opening: Complete distension and complete duration; no obstruction of flow Tongue Base Retraction: Wide column of contrast between tongue base & post. pharyngeal wall Pharyngeal Residue: Complete pharyngeal clearance - Esophageal Phase Esophageal Clearance: Esophageal retention w/ retrograde flow below pharyngoesophageal seg. - Diagnosis/Impression Diagnosis: Swallow Function WNL Impression: Patient's overall swallow function is grossly WNL. Oral phase primarily marked by slow, but functional mastication and mildly delayed AP transit. Premature bolus loss to the vallecula was observed w/ various consistencies, however there was adequate airway closure. Min residue remaining in the oral cavity w/ 1/2 cookie, however independently cleared w/ double swallow. No penetration/aspiration was observed during this study even with consecutive sips of thin liquid via cup. No pharyngeal deficits identified. *Patient w/ esophageal retention in the lower esophagus w/ HTL, esophageal retention in the upper esophagus w/ pudding. Liquid wash did assist in clearance. Cookie cleared in a timely manner. - Recommendations Diet: Regular Textures, Thin Liquids Compensatory Strategies: Multiple Swallows, Alternate bites/solids and sips/liquids, Sitting upright, Remain sitting upright for 30 minutes after PO intake Recommend Repeat Modified Barium Swallow: No Need for Skilled Speech Therapy Services: No Recommended Referrals: GI Consult Education Completed: 1. Described result of evaluation. - Status Active ST Patient: Active - Contact Information [facility] Speech Therapy:: Raysa Gupta M.A. CCC-SWITCH ADJUSTER Speech-Language Pathologist [facility] [address] [place] [address] [email or web address] [phone] 03/20/23 14:30
== END | disposition home or self-care (01) ==
LOC: RAD 12:56
PROVIDERS: PCP Family Medicine; Referring Provider Family Medicine; Visit Provider Family Medicine
DX: K21.9 Gastro-esophageal reflux disease without esophagitis (principal)
CPT/HCPCS: 74230; 92611

== ENCOUNTER → 2023-08-06 | Outpatient (CLI) | payer MEDICARE, OTHER, SELFPAY ==
[2023-08-06 18:25] LABS: ALB/GLOB Ratio 1.3 RATIO (0.9-2.4); AST(SGOT) 21 U/L (15-37); Alanine Aminotransfer ALT/SGPT 31 U/L (13-56); Albumin, Serum 4.2 g/dL (3.2-5.0); Alkaline Phosphatase 87 U/L (45-117); Anion Gap 5 (5-15); BUN 10 mg/dL (7-18); BUN/Creat Ratio 13.3 RATIO (10-20); Calcium,Total 8.9 mg/dL (8.5-10.1); Chloride 93 mmol/L (98-107); Cholesterol 212 mg/dL (200); Creatinine, Serum 0.75 mg/dL (0.55-1.02); EST Glomerular Filtration Rate 80 mL/min (>60); Est Glom Filt Rate - Afr Amer 96 mL/min (>60); Globulin 3.3 g/dL (2.2-4.2); Glucose 93 mg/dL (74-106); High Density Lipoprotein 83 mg/dL; Potassium 3.9 mmol/L (3.5-5.1); Protein, Total 7.5 g/dL (6.4-8.2); Sodium Level 129 mmol/L (136-145); Triglycerides 70 mg/dL; Very Low Density Lipoprotein 14 mg/dL (5-40)
== END | disposition home or self-care (01) ==
LOC: MFPLAB 15:17
PROVIDERS: PCP Family Medicine; Visit Provider Family Medicine
DX: I10 Essential (primary) hypertension (principal); R63.4 Abnormal weight loss; E87.1 Hypo-osmolality and hyponatremia
CPT/HCPCS: 36415; 80053; 80061

== ENCOUNTER → 2024-03-07 | Outpatient (CLI) | payer MEDICARE, OTHER, SELFPAY ==
[2024-03-08 02:13] LABS: Anion Gap 11 (5-15); BUN 7 mg/dL (7-18); BUN/Creat Ratio 9.7 RATIO (10-20); Calcium,Total 9.1 mg/dL (8.5-10.1); Chloride 92 mmol/L (98-107); Cholesterol 197 mg/dL (200); Creatinine, Serum 0.72 mg/dL (0.55-1.02); EST Glomerular Filtration Rate 84 mL/min (>60); Est Glom Filt Rate - Afr Amer 101 mL/min (>60); Glucose 99 mg/dL (74-106); High Density Lipoprotein 75 mg/dL; Potassium 4.2 mmol/L (3.5-5.1); Sodium Level 127 mmol/L (136-145); Triglycerides 86 mg/dL; Very Low Density Lipoprotein 17 mg/dL (5-40)
== END | disposition home or self-care (01) ==
LOC: MFPLAB 11:15
PROVIDERS: PCP Family Medicine; Visit Provider Family Medicine
DX: I10 Essential (primary) hypertension (principal)
CPT/HCPCS: 36415; 80048; 80061

== ENCOUNTER → 2024-05-06 | Outpatient (CLI) | payer MEDICARE, OTHER, SELFPAY ==
--- NOTE | 2024-05-06 17:08 | RAD_ITS ---
STUDY: X-RAY - PELVIS AND RIGHT HIP REASON FOR EXAM: Female, 78 years old. PAIN TECHNIQUE: 3 views of the pelvis and right hip. COMPARISON: Pelvis and left hip radiographs dated 12/08/2014. FINDINGS: There is a non-specific bowel gas pattern. Normal visualized soft tissue structures. Normal bilateral iliac wings, sacroiliac joints and visualized sacrum. There is an old healed fracture of the left superior pubic ramus. Normal right superior and inferior pubic rami. Normal pubic symphysis. Normal bilateral ischial tuberosities. Intact visualized right femoral head and acetabulum. There is unchanged mild degenerative arthrosis of the right hip joint with tiny marginal osteophyte formation. There is no demonstrated acute fracture. There is an intramedullary nail in the left proximal femur with hip screw in place. RAD/HIP, UNI W/ Pelvis 2-3 Views IMPRESSION: Unchanged mild degenerative arthrosis of the right hip joint. No demonstrated acute fracture. Old healed fracture of the left superior pubic ramus. Electronically Signed: Sumit Medel MD at 8:10 EDT ,
== END | disposition home or self-care (01) ==
LOC: MTRAD 17:05
PROVIDERS: PCP Family Medicine; Referring Provider Family Medicine; Visit Provider Family Medicine
DX: M25.551 Pain in right hip (principal)
CPT/HCPCS: 73502

== ENCOUNTER 2024-05-22 14:20 | Emergency (ER) | payer MEDICARE, OTHER, SELFPAY ==
[2024-05-22 14:21] VITALS: BP 156/95; PULSE 95; RESP 18; TEMP 36.1; O2SAT 97; BMI 18.9
--- NOTE | 2024-05-22 14:42 | ED.VIS.BACK ---
HPI History of Present Illness Chief Complaint: Other, Pain/Inj Narrative Narrative: 78-year-old female past medical history of back pain and osteoporosis presents with back pain and right leg pain that she has had for over a month. She relates history that she saw her primary care provider Dr. Mariscal who put her on meloxicam for her right hip pain that radiates down her leg. She recently just finished steroids as well. She denies any red flag signs, no fevers or chills, no saddle anesthesia, no loss of bowel or bladder. She started physical therapy 2 days ago, and the physical therapist told her that she thinks it is coming from her back and not her hip. She called her primary care provider's office today and they told her that they would schedule the outpatient MRI, but she was having so much pain that she told him she was going to come to the emergency department. [facility] Medical History Hyponatremia Pneumonia Hypertension Headache Cataracts, bilateral Cancer UTI (urinary tract infection) Bone fracture Back problem Arthritis Anemia Seasonal allergies GERD (gastroesophageal reflux disease) Myocardial infarct CAD (coronary artery disease) Pulmonary nodule Bronchitis Old myocardial infarction COPD (chronic obstructive pulmonary disease) Hyperlipidemia History of non-ST elevation myocardial infarction (NSTEMI) Takotsubo cardiomyopathy Atherosclerotic heart disease of [place] coronary artery without angina pectoris Tongue cancer History of coronary vasospasm Osteoporosis Benign essential HTN Asthma Home Medications ?Medication ?Instructions ?Recorded ?Last Taken ?Type albuterol sulfate 90 mcg/actuation 1 - 2 puff inhalation Q6H PRN PRN 05/30/17 Unknown Rx aerosol inhaler Wheezing ##1 sucralfate 1 gram tablet 1 g PO QHS PRN reflux 10/29/17 07/15/19 History nitroglycerin 0.4 mg sublingual 0.4 mg sublingual Q5M PRN Chest 07/16/19 11/18/19 History tablet Pain multivitamin 1 tab PO DAILY 05/18/21 Unknown History lorazepam 0.5 mg tablet 0.5 mg PO DAILY PRN PRN Anxiety 08/09/21 Unknown History calcium-vitamin D3-vitamin K 500 3 tab PO QPM supplement 05/31/22 Unknown History mg-1,000 unit-40 mcg chewable tablet paroxetine HCl 10 mg tablet 5 mg PO DAILY 05/31/22 Unknown History cranberry fruit concentrate 250 mg 250 mg PO DAILY 03/08/23 Unknown History chewable tablet (Azo Cranberry) pravastatin 80 mg tablet See Rx Instructions .Route 07/31/23 Unknown Rx .COMPLEX #90 tabs tiotropium 2.5 mcg-olodaterol 2.5 2 puff inhalation DAILY #3 device 09/10/23 Unknown Rx mcg/actuation mist for inhalation (Stiolto Respimat) amlodipine 5 mg tablet 5 mg PO DAILY #90 tabs 10/16/23 Unknown Rx pantoprazole 40 mg tablet,delayed 40 mg PO DAILY for acid reflux #90 12/05/23 Unknown Rx release TABLETS metoprolol succinate 50 mg 50 mg PO DAILY blood 02/13/24 Unknown Rx tablet,extended release 24 hr pressure/heart #90 tabs oxycodone 5 mg tablet 5 mg PO Q6H PRN pain 3 days #12 05/22/24 Unknown Rx tabs Allergy/AdvReac Type Severity Reaction Status Date / Time umeclidinium (From Anoro AdvReac Intermediate heart Verified 05/22/24 14:23 Ellipta) racing, high bp, anxious vilanterol (From Anoro AdvReac Intermediate heart Verified 05/22/24 14:23 Ellipta) racing, high bp, anxious codeine AdvReac HEART RACES Verified 05/22/24 14:23 Corticosteroids AdvReac high blood Verified 05/22/24 14:23 (Glucocorticoids) pressure indomethacin (From Indocin) AdvReac Abd Verified 05/22/24 14:23 cramps/diarrhea indomethacin sodium (From AdvReac Abd Verified 05/22/24 14:23 Indocin) cramps/diarrhea levofloxacin (From Levaquin) AdvReac INCREASED Verified 05/22/24 14:23 BLOOD PRESSURE nitrofurantoin (From AdvReac Nausea/Vom/ Verified 05/22/24 14:23 Macrobid) Diarrhea propoxyphene napsylate (From AdvReac PASSES OUT Verified 05/22/24 14:23 Darvocet-N 100) Family History Father , age 92, had [place] age 35 Myocardial infarction, Onset Age: 35 Arthritis Mother Asthma Respiratory disease Grandmother Asthma Emphysema lung Respiratory disease Other Heart disease Hypertension Surgical History H/O kyphoplasty H/O: hysterectomy History of tonsillectomy S/P pericardial window creation History of cataract surgery History of pericardiectomy History of left heart catheterization Social History Smoking Status: Never smoker alcohol intake: never substance use type: does not use what type of physical activity do you participate in: walking frequency: 5-6 times per week ROS ROS ED ROS Narrative Constitutional: No fever, no chills. HEENT: No sore throat. No neck pain. No loss of vision. No rhinorrhea. Cardiovascular: No chest pain. No palpitations. No pedal edema. Respiratory: No cough, no shortness of breath. Abdominal: No abdominal pain. No nausea. No vomiting. Genitourinary: No dysuria. No hematuria. Musculoskeletal: No myalgias. Positive low back pain bilaterally. Positive right hip pain/right leg pain. Neurologic: No headaches. No dizziness. No lightheadedness. Skin: No rash. No change in color. Psychiatric: No depression. No anxiety. EXAM Physical Exam Narrative Exam Narrative: Afebrile. Vital signs noted. HEENT: Normocephalic. Atraumatic. PERRL, EOMI. Neck soft and supple. No point tenderness or step off. Cardiovascular: Regular rate and rhythm. No murmurs, rubs, or gallops appreciated. Respiratory: No tachypnea. Lungs clear to auscultation bilaterally. Gastrointestinal: Abdomen soft, nontender, with normoactive bowel sounds. No rebound or guarding. Neurological: Awake. Alert. Nonfocal, nonlateralizing. Straight leg raising test negative bilaterally. Skin: No rash. Normal color. No pallor. Musculoskeletal: No pedal edema. Full range of motion extremities. Diffuse tenderness to palpation bilateral low back, no vertebral point tenderness or bony step-off. Neurovascular tact bilateral lower extremities. EHL intact bilaterally. Able to raise legs off bed without difficulty. Const Vital Signs: 05/22/24 14:21 05/22/24 15:37 Temperature 97 F L Temperature Source Temporal Pulse Rate 95 Respiratory Rate 18 Respiratory Effort Normal Respiratory Pattern Normal Blood Pressure 156/95 H Blood Pressure Mean 115 Pulse Ox 97 Oxygen Delivery Method Room Air MDM MDM MDM Narrative Medical decision making narrative: Differential diagnosis includes but not limited to sciatica/lumbar radiculopathy versus spinal stenosis versus occult hip or lumbar spine fracture. She does not have any red flag signs for cauda equina. I do not feel that she requires emergent MRI. She requested something stronger for pain. She has taken Percocet in the past. She was given an oxycodone and a Tylenol tablet here. To rule out fracture CT of the lumbar spine and of the right hip will be obtained. I do not feel laboratory work is indicated. I reviewed the radiology reports of the CT of the lumbar spine and the CT of the right hip. There is no evidence of occult fracture. She does have DJD of the spine and probable spinal stenosis. At this point in time, after 1 oxycodone, and she had already taken Tylenol prior to arrival, at approximately 1545, she is feeling mildly improved. I feel she can be discharged to follow-up with her primary care provider in still do her physical therapy and have her outpatient MRI performed. She was written a prescription for 5 mg oxycodone to take every 6 hours as needed for the next 3 days dispense #12. She was told of the risk of side effects with narcotic pain medication but states she has taken Percocet in the past. Return instructions to the emergency department were reviewed. Disposition is discharged home in stable condition. History & Record Review Discussion w/independent historian: Patient and Family (Spouse) Radiography Diagnostic Testing: Clinical Impression(s) from Imaging Studies Lower Extremity CT 05/22/24 15:00 IMPRESSION: No evidence of fracture or dislocation. Mild degree of osteoarthritis of the hip joint. Electronically Signed: Klever Law MD at 15:25 EDT , Lumbar Spine CT 05/22/24 15:00 IMPRESSION: Multilevel degenerative changes, as described above. 6.1 cm x 3.3 cm cyst arising from the upper pole of the left kidney. Electronically Signed: Klever Law MD at 15:27 EDT , Discharge Plan Triage Chief Complaint: Other, Pain/Inj ED Provider: Blanco Mcdonald Dx/Rx/DC Orders Clinical Impression: Back pain, Hip pain, right, Degenerative joint disease (DJD) of lumbar spine Instructions: ED Back Pain (Acute or Chronic), ED Degenerative Disk Disease Prescriptions: New oxycodone 5 mg tablet 5 mg PO Q6H PRN (Reason: pain) 3 Days Qty: 12 0RF No Action multivitamin Tablet 1 tab PO DAILY paroxetine HCl 10 mg tablet 5 mg PO DAILY Azo Cranberry 250 mg tablet,chewable 250 mg PO DAILY amlodipine 5 mg tablet 5 mg PO DAILY Qty: 90 3RF lorazepam 0.5 mg tablet 0.5 mg PO DAILY PRN PRN (Reason: Anxiety) Patient Comments: anxiety calcium-vitamin D3-vitamin K 500 mg-1,000 unit-40 mcg tablet,chewable 3 tab PO QPM Patient Comments: supplement sucralfate 1 GM tablet 1 g PO QHS PRN (Reason: reflux) Patient Comments: stomach albuterol sulfate 1 INHALER inhaler 1 - 2 puff INHALATION Q6H PRN PRN (Reason: Wheezing) Qty: 1 0RF Patient Comments: asthma/copd nitroglycerin 0.4 MG tablet, sublingual 0.4 mg sublingual Q5M PRN (Reason: Chest Pain) pravastatin 80 mg tablet See Rx Instructions .ROUTE .COMPLEX Qty: 90 3RF Dose Instruction: TAKE 1 TABLET AT BEDTIME FOR CHOLESTEROL Rx Instructions: TAKE 1 TABLET AT BEDTIME FOR CHOLESTEROL Stiolto Respimat 2.5-2.5 mcg/actuation mist 2 puff inhalation DAILY Qty: 3 3RF pantoprazole 40 mg tablet,delayed release (DR/EC) 40 mg PO DAILY Qty: 90 3RF metoprolol succinate 50 mg tablet extended release 24 hr 50 mg PO DAILY Qty: 90 3RF Primary Care Provider: Malcolm Mariscal Referrals: Malcolm Mariscal MD [Primary Care Provider] - 3-5 Days Activity Restrictions/Additional Instructions: Follow-up with Dr. Mariscal in the next 3 to 5 days. Continue your physical therapy, and have your outpatient MRI performed. Print Language: Nepalese Disposition Disposition: Home, Self Care
[2024-05-22] MEDS: oxyCODONE 5 MG Tablet PO (14:45)
--- NOTE | 2024-05-22 15:00 | CT_ITS ---
CT RIGHT LOWER EXTREMITY WITH 3-D IMAGING CLINICAL INDICATION: Right hip pain following a fall. TECHNIQUE: Axial CT images of the RIGHT lower extremity was performed IV contrast material. Coronal and sagittal reformats were provided. The protocol utilizes one or more of the following dose reduction techniques: automated exposure control, adjustment of mA and/or kV according to patient size,and/or use of iterative reconstruction technique. RADIATION DOSAGE (If Supplied By Facility): CTDIvol = ( 12.06 ) mGy, DLP = ( 295.02 ) mGycm COMPARISON: No relevant prior comparison study available FINDINGS: Bones: Osseous structures are normal without evidence of fracture or dislocation. No lytic or blastic osseous masses. Soft Tissues: The deep soft tissue structures are unremarkable. The superficial soft tissues are unremarkable without evidence of edema, hematoma, or foreign body. CT/Extremity Lower without Contra IMPRESSION: No evidence of fracture or dislocation. Mild degree of osteoarthritis of the hip joint. Electronically Signed: Klever Law MD at 15:25 EDT ,
--- NOTE | 2024-05-22 15:00 | CT_ITS ---
STUDY: CT LUMBAR SPINE WITHOUT CONTRAST REASON FOR EXAM: Female, 78 years old. Low back pain. RADIATION DOSAGE (If Supplied By Facility): CTDIvol = ( 13.82 ) mGy, DLP = ( 373.83 ) mGycm TECHNIQUE: The patient was scanned in a multi detector CT scanner. High resolution transaxial imaging was performed. Images were obtained from L1 to S1 vertebral level. Sagittal and coronal images were reconstructed. Individualized dose optimization techniques were used for this CT. COMPARISON: None FINDINGS: Normal lumbar lordosis. Mild dextroscoliosis. Normal vertebrae of the lumbar spine. L1-2: Normal endplates. Normal disc height and morphology. Normal bilateral facet joints. Normal central canal and bilateral lateral recesses. Normal bilateral intervertebral neural foramina. L2-3: Mild degree of disc space narrowing. Spondylosis. Mild degree of diffuse posterior disc bulge. L3-4: Facet joint osteoarthritis and hypertrophy. No significant stenosis seen. L4-5: Marked degree of disc space narrowing with subchondral sclerosis. Spondylosis. Facet joint osteoarthritis and hypertrophy with bilateral neural foraminal stenosis. Hypertrophy of the ligamenta flava suggests a mild central canal stenosis. L5-S1: Normal endplates. Normal disc height and morphology. Normal bilateral facet joints. Normal central canal and bilateral lateral recesses. Normal bilateral intervertebral neural foramina. There is a 3.3 cm x 6.1 cm cyst arising from the upper pole of the left kidney. CT/Spine Lumbar without Contrast IMPRESSION: Multilevel degenerative changes, as described above. 6.1 cm x 3.3 cm cyst arising from the upper pole of the left kidney. Electronically Signed: Klever Law MD at 15:27 EDT ,
[2024-05-22 16:01] VITALS: BP 148/80; PULSE 68; RESP 17; TEMP 36.1; O2SAT 95
== END 2024-05-22 16:02 | disposition home or self-care (01) ==
PROVIDERS: Emergency Provider Emergency Medicine; PCP Family Medicine; Visit Provider Emergency Medicine
DX: M47.816 Spondylosis without myelopathy or radiculopathy, lumbar region (principal); J44.9 Chronic obstructive pulmonary disease, unspecified; I25.10 Atherosclerotic heart disease of native coronary artery without angina pectoris; I10 Essential (primary) hypertension; E78.5 Hyperlipidemia, unspecified; M25.551 Pain in right hip; M54.9 Dorsalgia, unspecified; I25.2 Old myocardial infarction; Z85.810 Personal history of malignant neoplasm of tongue; Z79.899 Other long term (current) drug therapy; K21.9 Gastro-esophageal reflux disease without esophagitis; Z90.710 Acquired absence of both cervix and uterus
CPT/HCPCS: 72131; 73700; 99283

== ENCOUNTER → 2024-06-11 | Outpatient (CLI) | payer MEDICARE, OTHER, SELFPAY ==
--- NOTE | 2024-06-11 11:08 | MRI_ITS ---
STUDY: MRI LUMBAR SPINE WITHOUT CONTRAST REASON FOR EXAM: Female, 78 years old. Back Pain INTO R -- HIP TECHNIQUE: Standardized fat and water weighted pulse sequences were obtained in the sagittal and axial planes. COMPARISON: None FINDINGS: T12-L1: Normal endplates. Normal disc height, hydration and morphology. Normal bilateral facet joints. Normal central canal and bilateral lateral recesses. Normal bilateral intervertebral neural foramina. Normal lumbar lordosis. Mild dextroscoliosis centered at L1/L2. Normal conus medullaris that terminates at the L1. Marrow pallor suggestive of osteopenia. L1-2: Normal endplates. Normal disc height, hydration and morphology. Normal bilateral facet joints. Normal central canal and bilateral lateral recesses. Normal bilateral intervertebral neural foramina. L2-3: Mild bilateral disc protrusion produces mild spinal stenosis and mild bilateral neural foraminal stenosis. L3-4: Normal endplates. Normal disc height, hydration and morphology. Normal bilateral facet joints. Normal central canal and bilateral lateral recesses. Normal bilateral intervertebral neural foramina. L4-5: Mild bilateral disc osteophyte complex produces mild spinal stenosis and moderate bilateral neural foraminal stenosis. L5-S1: Mild broad disc protrusion produces mild spinal stenosis and mild bilateral neural foraminal stenosis. Normal visualized sacral ala. 5 cm exophytic cyst upper pole left kidney. MRI/Spine Lumbar (Routine) IMPRESSION: Mild dextroscoliosis with degenerative disc disease as described above. Electronically Signed: Michael Botello MD at 11:15 EDT ,
== END | disposition home or self-care (01) ==
LOC: MRI 11:03
PROVIDERS: PCP Family Medicine; Referring Provider Family Medicine; Visit Provider Family Medicine
DX: M54.9 Dorsalgia, unspecified (principal)
CPT/HCPCS: 72148

== ENCOUNTER 2024-06-20 21:52 | Observation (INO) | payer MEDICARE, OTHER, SELFPAY ==
[2024-06-20 21:53] VITALS: BP 175/92; PULSE 91; RESP 18; TEMP 36.1; O2SAT 99
--- NOTE | 2024-06-20 23:57 | EKG12_ITS ---
Test Reason : BACK Blood Pressure : / mmHG Vent. Rate : 076 BPM Atrial Rate : 076 BPM P-R Int : 150 ms QRS Dur : 070 ms QT Int : 380 ms P-R-T Axes : 043 019 056 degrees QTc Int : 427 ms Normal sinus rhythm Septal infarct , age undetermined Abnormal ECG Confirmed by JASE SELLERS, LESLIE ([id number]), desk editor MELISSA MAURER ([id number]) on 06/24/2024 1:54:10 PM Referred By: Confirmed By:LESLIE LAGUNA MD
[2024-06-21] VITALS (7 sets, daily range): BP systolic 139–179; BP diastolic 65–95; PULSE 66–81; RESP 14–16; TEMP 35.3–36.6; O2SAT 94–100; BMI 19.1; BMI 18.9
[2024-06-21] MEDS: 0.9% Normal Saline (1000mL) 1,000 ML 999 ML IV (00:18)
[2024-06-21] MEDS: Ondansetron 4 MG/2 ML Vial IV (00:19)
[2024-06-21] MEDS: Morphine 2 MG/ML Syringe IV (00:19)
[2024-06-21 00:31] LABS: Bacteria 0 SEEN /hpf (None Seen); Mucous, Urine 0 SEEN /hpf (<or=2+); Red Blood Cells-Urine 0 SEEN /hpf (0-5); Squamous Epithelial Cells - UA 0 SEEN /hpf (5-10)
[2024-06-21 00:33] LABS: Absolute Lymphocyte Count 1.51 X10^3/uL (0.83-4.51); Absolute Neutrophil Count 6.3 X10^3/uL (2.0-7.7); Basophil# 0.04 X10^3/uL; Basophil% 0.5 % (0-1); Eosinophil# 0.04 X10^3/uL; Eosinophils% 0.5 % (0-5); Hemoglobin 12.5 g/dL (12.0-15.0); Lymphocyte # 1.51 X10^3/ul (0.83-4.51); Lymphocyte % 17.6 % (19-41); Mean Corp Hgb Conc 32.9 g/dL (32-36); Mean Corpuscular Hgb 30.1 pg (27.0-32.0); Mean Corpuscular Volume 91.6 fL (81-99); Mean Platelet Vol. 7.9 fl (6.2-12.0); Monocyte# 0.64 X10^3/uL; Monocyte% 7.5 % (0-10); NRBC Flagged by Analyzer 0 % (0-5); Neutrophil # 6.32 X10^3/uL (2.7-7.7); Neutrophil % 73.6 % (47-70); Platelet Count 363 K/mm3 (150-450); RBC Distribution Width CV 13.7 % (11.6-14.6); RBC Distribution Width SD 46.4 fl (35.1-43.9); Red Blood Count 4.15 M/mm3 (4.2-5.4); White Blood Count 8.6 K/mm3 (4.4-11.0)
[2024-06-21 00:34] LABS: Color, Urine Yellow (Yellow); Glucose, Dipstick Normal (Normal); Ketone-Dipstick Negative (Negative); Leukocyte Esterase-Dipstick 25 /ul (Negative); Nitrite-Dipstick Negative (Negative); Occult Blood-Urine 25 /ul (Negative); Protein-Dipstick Negative (Negative); Urine Bilirubin Dipstick Negative (Negative); Urine Clarity Clear (Clear); Urine Urobilinogen Normal (Normal)
[2024-06-21 00:44] LABS: White Blood Cells 0-5 SEEN /hpf (0-5)
[2024-06-21 00:48] LABS: ALB/GLOB Ratio 1.2 RATIO (0.9-2.4); AST(SGOT) 23 U/L (15-37); Alanine Aminotransfer ALT/SGPT 31 U/L (13-56); Albumin, Serum 4.4 g/dL (3.2-5.0); Alkaline Phosphatase 103 U/L (45-117); Anion Gap 7 (5-15); BUN 13 mg/dL (7-18); BUN/Creat Ratio 17.1 RATIO (10-20); Calcium,Total 9.3 mg/dL (8.5-10.1); Chloride 93 mmol/L (98-107); Creatinine, Serum 0.76 mg/dL (0.55-1.02); EST Glomerular Filtration Rate 78 mL/min (>60); Est Glom Filt Rate - Afr Amer 95 mL/min (>60); Globulin 3.6 g/dL (2.2-4.2); Glucose 122 mg/dL (74-106); Potassium 3.8 mmol/L (3.5-5.1); Sodium Level 130 mmol/L (136-145)
--- NOTE | 2024-06-21 03:35 | EX.ED.DYSGE1 ---
HPI History of Present Illness Chief Complaint: Back Narrative Narrative: Patient is a 78-year-old female with a past medical history of hypertension, osteopenia, COPD, hypertension who presented to the emergency department the chief complaint of back pain. Patient states that she had been having some back pain however seem to be getting better over the last few days went to the store and she states that she leaned over and went to put eggs on her front seat and developed excruciating back pain. She states that things do not improving which prompted her to come here for the valuation management. States that this feels similar to when she had a compression fracture in the past. She states that she did have kyphoplasty for this. [facility] Medical History Hyponatremia Pneumonia Hypertension Headache Cataracts, bilateral Cancer UTI (urinary tract infection) Bone fracture Back problem Arthritis Anemia Seasonal allergies GERD (gastroesophageal reflux disease) Myocardial infarct CAD (coronary artery disease) Pulmonary nodule Bronchitis Old myocardial infarction COPD (chronic obstructive pulmonary disease) Hyperlipidemia History of non-ST elevation myocardial infarction (NSTEMI) Takotsubo cardiomyopathy Atherosclerotic heart disease of [place] coronary artery without angina pectoris Tongue cancer History of coronary vasospasm Osteoporosis Benign essential HTN Asthma Home Medications ?Medication ?Instructions ?Recorded ?Last Taken ?Type albuterol sulfate 90 mcg/actuation 1 - 2 puff inhalation Q6H PRN PRN 05/30/17 Unknown Rx aerosol inhaler Wheezing ##1 sucralfate 1 gram tablet 1 g PO QHS PRN reflux 10/29/17 07/15/19 History nitroglycerin 0.4 mg sublingual 0.4 mg sublingual Q5M PRN Chest 07/16/19 11/18/19 History tablet Pain multivitamin 1 tab PO DAILY 05/18/21 Unknown History lorazepam 0.5 mg tablet 0.5 mg PO DAILY PRN PRN Anxiety 08/09/21 Unknown History calcium 500 mg-vitamin D3 1,000 3 tab PO QPM supplement 05/31/22 Unknown History unit-vitamin K 40 mcg chewable tablet paroxetine HCl 10 mg tablet 5 mg PO DAILY 05/31/22 Unknown History cranberry fruit concentrate 250 mg 250 mg PO DAILY 03/08/23 Unknown History chewable tablet (Azo Cranberry) pravastatin 80 mg tablet See Rx Instructions .Route 07/31/23 Unknown Rx .COMPLEX #90 tabs tiotropium 2.5 mcg-olodaterol 2.5 2 puff inhalation DAILY #3 device 09/10/23 Unknown Rx mcg/actuation mist for inhalation (Stiolto Respimat) amlodipine 5 mg tablet 5 mg PO DAILY #90 tabs 10/16/23 Unknown Rx pantoprazole 40 mg tablet,delayed 40 mg PO DAILY for acid reflux #90 12/05/23 Unknown Rx release TABLETS metoprolol succinate 50 mg 50 mg PO DAILY blood 02/13/24 Unknown Rx tablet,extended release 24 hr pressure/heart #90 tabs oxycodone 5 mg tablet 5 mg PO Q6H PRN pain 3 days #12 05/22/24 Unknown Rx tabs Allergy/AdvReac Type Severity Reaction Status Date / Time umeclidinium (From Anoro AdvReac Intermediate heart Verified 06/20/24 21:53 Ellipta) racing, high bp, anxious vilanterol (From Anoro AdvReac Intermediate heart Verified 06/20/24 21:53 Ellipta) racing, high bp, anxious codeine AdvReac HEART RACES Verified 06/20/24 21:53 Corticosteroids AdvReac high blood Verified 06/20/24 21:53 (Glucocorticoids) pressure indomethacin (From Indocin) AdvReac Abd Verified 06/20/24 21:53 cramps/diarrhea indomethacin sodium (From AdvReac Abd Verified 06/20/24 21:53 Indocin) cramps/diarrhea levofloxacin (From Levaquin) AdvReac INCREASED Verified 06/20/24 21:53 BLOOD PRESSURE nitrofurantoin (From AdvReac Nausea/Vom/ Verified 06/20/24 21:53 Macrobid) Diarrhea propoxyphene napsylate (From AdvReac PASSES OUT Verified 06/20/24 21:53 Darvocet-N 100) Family History Father , age 92, had GA age 35 Myocardial infarction, Onset Age: 35 Arthritis Mother Asthma Respiratory disease Grandmother Asthma Emphysema lung Respiratory disease Other Heart disease Hypertension Surgical History H/O kyphoplasty H/O: hysterectomy History of tonsillectomy S/P pericardial window creation History of cataract surgery History of pericardiectomy History of left heart catheterization Social History Smoking Status: Never smoker alcohol intake: never substance use type: does not use what type of physical activity do you participate in: walking frequency: 5-6 times per week ROS ROS ED ROS Narrative Constitutional: Denies any fevers, chills, headaches, lightness, dizziness Cardiovascular: Denies chest pain or palpitations Respiratory: Denies coughing wheezing shortness of breath Abdomen: Denies abdominal pain nausea vomit diarrhea : Denies any urinary symptoms Neurological: Denies numbness, weakness, tingling Musculoskeletal: Complains of back pain as noted above Skin: Denies rashes or lesions EXAM Physical Exam Narrative Exam Narrative: General: Patient was lying in bed did appear to be in pain secondary to her back pain Head: Atraumatic, normocephalic Neck: Soft, supple, trachea midline Cardiovascular: Regular rate and rhythm no murmurs gallops rubs noted Respiratory: Clear to auscultation bilaterally Musculoskeletal: Patient has tenderness palpation the midline of the thoracic spine Extremities: +5/5 strength noted in the bilateral upper and lower extremities, no pedal edema no exam Neurological: Patient following commands knew that she was at [facility] years 2023. Sensation grossly intact Skin: Warm, dry, intact Const Vital Signs: 06/20/24 21:53 Temperature 97 F L Temperature Source Temporal Pulse Rate 91 Respiratory Rate 18 Blood Pressure 175/92 H Blood Pressure Mean 119 Pulse Ox 99 Oxygen Delivery Method Room Air MDM MDM MDM Narrative Medical decision making narrative: Patient is a 78-year-old female who presented to the emergency department with chief complaint of back pain. Patient will have a work performed here on the differential diagnose includes but not limited to compression fracture, musculoskeletal strain, ACS. Once workup is obtained reviewed she will be reevaluated. Patient be given IV fluids, morphine Zofran. Patient's CBC reviewed showed no evidence leukocytosis white blood count normal at 8.6, hemoglobin stable 12.5, plate count normal at 363. Patient sodium was noted be 130 she chronically has hyponatremia, patient's potassium normal at 3.8, creatinine normal at 0.76. Patient's AST and ALT were normal at 23 and 31 respectively. Patient's EKG reviewed and independently interpreted by myself which showed normal sinus rhythm with a rate of 76 bpm. Patient's urinalysis did not reveal any evidence of infection. Patient's CT of her thoracic spine was reviewed and showed compression fractures at T5 and T7 with approximately 50% vertebral body height loss and 45% vertebral body loss respectively, small nodular opacities in the left lower lobe recommending repeat chest imaging in 4 to [address] abdomen pelvis with IV contrast showed colonic diverticulosis without evidence of acute diverticulitis a slightly dilated pancreatic duct prominent common bile duct patient did not have any abdominal pain. On reevaluation the patient she is still having a lot of back pain she will be given another dose of morphine. Do believe she will require admission for intractable pain secondary to compression fractures. Did discuss case with hospitalist Dr. Garcia who accepted the patient for admission. Patient is agreeable with plan all question concerns answered bedside. Lab Data Labs: Laboratory Results - last 24 hr 06/21/24 00:25 WBC 8.6 RBC 4.15 L Hgb 12.5 Hct 38.0 MCV 91.6 MCH 30.1 MCHC 32.9 RDW Std Deviation 46.4 H RDW Coeff of Dianne 13.7 Plt Count 363 MPV 7.9 Immature Gran % (Auto) 0.300 Neut % (Auto) 73.6 H Lymph % (Auto) 17.6 L [place] % (Auto) 7.5 Eos % (Auto) 0.5 Baso % (Auto) 0.5 Absolute Neuts (auto) 6.3 Absolute Lymphs (auto) 1.51 Nucleated RBC % 0 Sodium 130 L Potassium 3.8 Chloride 93 L Carbon Dioxide 30.0 Anion Gap 7 BUN 13 Creatinine 0.76 Est GFR (MDRD) Af Amer 95 Est GFR (MDRD) Non-Af 78 BUN/Creatinine Ratio 17.1 Glucose 122 H Calcium 9.3 Total Bilirubin 0.40 AST 23 ALT 31 Alkaline Phosphatase 103 Total Protein 8.0 Albumin 4.4 Globulin 3.6 Albumin/Globulin Ratio 1.2 Urine Color Yellow Urine Clarity Clear Urine pH 7.0 Ur Specific [place] 1.010 Urine Protein Negative Urine Glucose (UA) Normal Urine Ketones Negative Urine Occult Blood 25 H Urine Nitrite Negative Urine Bilirubin Negative Urine Urobilinogen Normal Ur Leukocyte Esterase 25 H Urine RBC 0 SEEN Urine WBC 0-5 SEEN Ur Squamous Epith Cells 0 SEEN Urine Bacteria 0 SEEN Urine Mucus 0 SEEN Radiography Diagnostic Testing: Clinical Impression(s) from Imaging Studies Thoracic Spine CT 06/21/24 23:56 IMPRESSION: Mild to moderate compression fractures at T5 and T7, uncertain age. MRI may be helpful for further evaluation. Chronic T8 compression fracture with vertebroplasty. Small nodular opacities in the left lower lobe may be acute inflammatory or postinflammatory. Not present on prior CT chest. Nodule/malignancy not entirely excluded. CT chest imaging follow-up recommended in 4-6 weeks to confirm resolution. Electronically Signed: Marlena Alvarenga MD at 2:49 EDT , Abdomen/Pelvis CT 06/21/24 23:57 IMPRESSION: Colonic diverticulosis without evidence of acute diverticulitis. Slightly dilated pancreatic duct. Prominent common bile duct. MRI/MRCP may be helpful for further evaluation if clinically indicated. Electronically Signed: Marlena Alvarenga MD at 3:05 EDT , Discharge Plan Triage Chief Complaint: Back ED Provider: Timothy Rene Dx/Rx/DC Orders Clinical Impression: Intractable back pain, Compression fracture of thoracic vertebra Prescriptions: No Action multivitamin Tablet 1 tab PO DAILY paroxetine HCl 10 mg tablet 5 mg PO DAILY Azo Cranberry 250 mg tablet,chewable 250 mg PO DAILY amlodipine 5 mg tablet 5 mg PO DAILY Qty: 90 3RF lorazepam 0.5 mg tablet 0.5 mg PO DAILY PRN PRN (Reason: Anxiety) Patient Comments: anxiety calcium-vitamin D3-vitamin K 500 mg-1,000 unit-40 mcg tablet,chewable 3 tab PO QPM Patient Comments: supplement sucralfate 1 GM tablet 1 g PO QHS PRN (Reason: reflux) Patient Comments: stomach albuterol sulfate 1 INHALER inhaler 1 - 2 puff INHALATION Q6H PRN PRN (Reason: Wheezing) Qty: 1 0RF Patient Comments: asthma/copd nitroglycerin 0.4 MG tablet, sublingual 0.4 mg sublingual Q5M PRN (Reason: Chest Pain) oxycodone 5 mg tablet 5 mg PO Q6H PRN (Reason: pain) 3 Days Qty: 12 0RF pravastatin 80 mg tablet See Rx Instructions .ROUTE .COMPLEX Qty: 90 3RF Dose Instruction: TAKE 1 TABLET AT BEDTIME FOR CHOLESTEROL Rx Instructions: TAKE 1 TABLET AT BEDTIME FOR CHOLESTEROL Stiolto Respimat 2.5-2.5 mcg/actuation mist 2 puff inhalation DAILY Qty: 3 3RF pantoprazole 40 mg tablet,delayed release (DR/EC) 40 mg PO DAILY Qty: 90 3RF metoprolol succinate 50 mg tablet extended release 24 hr 50 mg PO DAILY Qty: 90 3RF Primary Care Provider: Malcolm Mariscal Referrals: Malcolm Mariscal MD [Primary Care Provider] - Print Language: Danish
--- NOTE | 2024-06-21 03:38 | HP.PCM.HOS_ITS ---
[facility] - General General Date of Admission: 06/21/24 Date of Service: 06/21/24 Chief Complaint: Intractable Back Pain. [facility] Narrative ALEXY DOMINGUEZ, is a 78 F with a past medical history of essential hypertension, hyperlipidemia, history of tobacco abuse; with subsequent asthma/COPD, heterozygous alpha 1 antitrypsin deficiency, history of malignant neoplasm of head and neck, history of pulmonary nodule, CAD; s/p CO, history of Takotsubo cardiomyopathy, history pericardiectomy, history of hysterectomy, history of chronic tonsillitis, seasonal allergies, GERD, history of bilateral cataracts; s/p extraction, kyphoscoliosis, osteoporosis; with history of T8 compression fracture and subsequent kyphoplasty and osteoarthritis who presents to [facility] ER complaining of intractable back pain. Mrs. Dominguez reports her symptoms began a few days prior to admission and then she went to the store on June 20, 2024 and when she leaned over to put eggs on her front passenger seat she had an abrupt-onset of excruciating back pain that was similar to her previous T8 compression fracture but this was much, much worse. She then took multiple dose of Tylenol at home and tried to tough it out but she eventually relented deciding to come in for further evaluation and treatment. She denies associated fever, chills, nausea, vomiting, diarrhea, chest pain, SOB, paresthesias or recent traumatic injury. In the ER she was noted to have CT evidence of compression fractures at T5 and T7 that are likely acute complicated by clinical evidence of intractable back pain in the setting of known osteoporosis with previous T8 compression fracture; s/p kyphoplasty and she was then admitted to the general medical floor under observation status for ongoing care that is expected to be less than 2 midnights. [facility] Medical History Hyponatremia Pneumonia Hypertension Headache Cataracts, bilateral Cancer UTI (urinary tract infection) Bone fracture Back problem Arthritis Anemia Seasonal allergies GERD (gastroesophageal reflux disease) Myocardial infarct CAD (coronary artery disease) Pulmonary nodule Bronchitis Old myocardial infarction COPD (chronic obstructive pulmonary disease) Hyperlipidemia History of non-ST elevation myocardial infarction (NSTEMI) Takotsubo cardiomyopathy Atherosclerotic heart disease of [place] coronary artery without angina pectoris Tongue cancer History of coronary vasospasm Osteoporosis Benign essential HTN Asthma Home Medications ?Medication ?Instructions ?Recorded ?Last Taken ?Type albuterol sulfate 90 mcg/actuation 1 - 2 puff inhalation Q6H PRN PRN 05/30/17 Unknown Rx aerosol inhaler Wheezing ##1 sucralfate 1 gram tablet 1 g PO QHS PRN reflux 10/29/17 07/15/19 History nitroglycerin 0.4 mg sublingual 0.4 mg sublingual Q5M PRN Chest 07/16/19 11/18/19 History tablet Pain multivitamin 1 tab PO DAILY 05/18/21 Unknown History lorazepam 0.5 mg tablet 0.5 mg PO DAILY PRN PRN Anxiety 08/09/21 Unknown History calcium 500 mg-vitamin D3 1,000 3 tab PO QPM supplement 05/31/22 Unknown History unit-vitamin K 40 mcg chewable tablet paroxetine HCl 10 mg tablet 5 mg PO DAILY 05/31/22 Unknown History pravastatin 80 mg tablet See Rx Instructions .Route 07/31/23 Unknown Rx .COMPLEX #90 tabs amlodipine 5 mg tablet 5 mg PO DAILY #90 tabs 10/16/23 Unknown Rx pantoprazole 40 mg tablet,delayed 40 mg PO DAILY for acid reflux #90 12/05/23 Unknown Rx release TABLETS metoprolol succinate 50 mg 50 mg PO DAILY blood 02/13/24 Unknown Rx tablet,extended release 24 hr pressure/heart #90 tabs oxycodone 5 mg tablet 5 mg PO Q6H PRN pain 3 days #12 05/22/24 Unknown Rx tabs meloxicam 15 mg tablet 15 mg PO QHS 06/21/24 Unknown History Allergy/AdvReac Type Severity Reaction Status Date / Time umeclidinium (From Anoro AdvReac Intermediate heart Verified 06/20/24 21:53 Ellipta) racing, high bp, anxious vilanterol (From Anoro AdvReac Intermediate heart Verified 06/20/24 21:53 Ellipta) racing, high bp, anxious codeine AdvReac HEART RACES Verified 06/20/24 21:53 Corticosteroids AdvReac high blood Verified 06/20/24 21:53 (Glucocorticoids) pressure indomethacin (From Indocin) AdvReac Abd Verified 06/20/24 21:53 cramps/diarrhea indomethacin sodium (From AdvReac Abd Verified 06/20/24 21:53 Indocin) cramps/diarrhea levofloxacin (From Levaquin) AdvReac INCREASED Verified 06/20/24 21:53 BLOOD PRESSURE nitrofurantoin (From AdvReac Nausea/Vom/ Verified 06/20/24 21:53 Macrobid) Diarrhea propoxyphene napsylate (From AdvReac PASSES OUT Verified 06/20/24 21:53 Darvocet-N 100) Family History Father , age 92, had [place] age 35 Myocardial infarction, Onset Age: 35 Arthritis Mother Asthma Respiratory disease Grandmother Asthma Emphysema lung Respiratory disease Other Heart disease Hypertension Surgical History H/O kyphoplasty H/O: hysterectomy History of tonsillectomy S/P pericardial window creation History of cataract surgery History of pericardiectomy History of left heart catheterization Social History Smoking Status: Never smoker alcohol intake: never substance use type: does not use what type of physical activity do you participate in: walking frequency: 5-6 times per week ROS ROS Narrative Review of systems: General: Patient denies fever or chills. HENT: Denies headache, denies stuffy nose, denies sore throat EYES: Denies changes in vision or discharge from eyes. Resp: Denies cough, denies shortness of breath Cardiac: Denies chest pain, palpitations or heart racing. GI: Denies abdominal pain, denies changes in bowel, denies nausea or vomiting. : Denies changes in urination Extremity: Denies swelling Musculoskeletal: Patient admits to severe intractable back pain since turning in her car to put extra on the passenger seat as per HPI. Neuro: Patient denies headache, paresthesias or focal neurologic deficits. Heme: Denies any bleeding or bruising Skin: Denies rashes Psychiatric: No complaints voiced related to uncontrolled depression or anxiety. Endocrine: No polyuria, polydipsia or polyphagia. The rest of the 14 point ROS was negative except for positives in HPI. Vital Signs Vital Signs Vital Signs: 06/20/24 21:53 Temperature 97 F L Temperature Source Temporal Pulse Rate 91 Respiratory Rate 18 Blood Pressure 175/92 H Blood Pressure Mean 119 Pulse Ox 99 Oxygen Delivery Method Room Air Physical Exam Const alert and oriented x3 Constitutional Narrative: Moderate discomfort noted with patient very thin in appearance.. Mind is still very sharp and her was present at the bedside. General Appearance: cooperative HEENT normocephalic, head/scalp atraumatic, hearing grossly normal bilaterally and moist oral mucous membranes Eyes PERRL and EOMs intact bilaterally Neck no lymphadenopathy and supple Resp normal respiratory effort, no retractions, no use of accessory muscles and clear to auscultation bilaterally Cardio regular rate and regular rhythm GI normal to inspection, nondistended, normoactive bowel sounds, soft to palpation, non-tender and non-distended Extremity normal to inspection and full ROM Skin Skin Narrative: Patient has no evidence of rash, jaundice or abscess. Neuro oriented x3, CN's II-XII intact bilaterally, moves all extremities and no focal motor deficits Sensorium / Orientation: awake, alert, oriented to person, oriented to place and oriented to time Speech: speech normal Psych affect normal Results Medical Records Data Attestation: I reviewed the patient's medical records Lab / Micro Data Attestation: I reviewed the patient's lab results. 06/21/24 00:25 06/21/24 00:25 Labs: Laboratory Results - last 24 hr 06/21/24 00:25: WBC 8.6, RBC 4.15 L, Hgb 12.5, Hct 38.0, MCV 91.6, MCH 30.1, MCHC 32.9, RDW Std Deviation 46.4 H, RDW Coeff of Dianne 13.7, Plt Count 363, MPV 7.9, Immature Gran % (Auto) 0.300, Neut % (Auto) 73.6 H, Lymph % (Auto) 17.6 L, [place] % (Auto) 7.5, Eos % (Auto) 0.5, Baso % (Auto) 0.5, Absolute Neuts (auto) 6.3, Absolute Lymphs (auto) 1.51, Nucleated RBC % 0, Sodium 130 L, Potassium 3.8, Chloride 93 L, Carbon Dioxide 30.0, Anion Gap 7, BUN 13, Creatinine 0.76, Est GFR (MDRD) Af Amer 95, Est GFR (MDRD) Non-Af 78, BUN/Creatinine Ratio 17.1, Glucose 122 H, Calcium 9.3, Total Bilirubin 0.40, AST 23, ALT 31, Alkaline Phosphatase 103, Total Protein 8.0, Albumin 4.4, Globulin 3.6, Albumin/Globulin Ratio 1.2, Urine Color Yellow, Urine Clarity Clear, Urine pH 7.0, Ur Specific [place] 1.010, Urine Protein Negative, Urine Glucose (UA) Normal, Urine Ketones Negative, Urine Occult Blood 25 H, Urine Nitrite Negative, Urine Bilirubin Negative, Urine Urobilinogen Normal, Ur Leukocyte Esterase 25 H, Urine RBC 0 SEEN, Urine WBC 0-5 SEEN, Ur Squamous Epith Cells 0 SEEN, Urine Bacteria 0 SEEN, Urine Mucus 0 SEEN Imaging Radiology Impression Thoracic Spine CT 06/21/24 23:56 IMPRESSION: Mild to moderate compression fractures at T5 and T7, uncertain age. MRI may be helpful for further evaluation. Chronic T8 compression fracture with vertebroplasty. Small nodular opacities in the left lower lobe may be acute inflammatory or postinflammatory. Not present on prior CT chest. Nodule/malignancy not entirely excluded. CT chest imaging follow-up recommended in 4-6 weeks to confirm resolution. Electronically Signed: Marlena Alvarenga MD at 2:49 EDT , Abdomen/Pelvis CT 06/21/24 23:57 IMPRESSION: Colonic diverticulosis without evidence of acute diverticulitis. Slightly dilated pancreatic duct. Prominent common bile duct. MRI/MRCP may be helpful for further evaluation if clinically indicated. Electronically Signed: Marlena Alvaernga MD at 3:05 EDT , Assessment & Plan Assessment/Plan (1) Intractable back pain: (2) Compression fracture of thoracic vertebra: QUALIFIERS: Encounter type: initial encounter Thoracic vertebra fracture level: T6 Qualified Code(s): S22.050A - Wedge compression fracture of T5-T6 vertebra, initial encounter for closed fracture (3) Kyphoscoliosis: (4) Osteoporosis: QUALIFIERS: Osteoporosis type: unspecified Presence of current pathological fracture: unspecified Qualified Code(s): M81.0 - Age-related osteoporosis without current pathological fracture (5) Osteoarthritis: QUALIFIERS: Osteoarthritis location: spine Spinal osteoarthritis complication: unspecified spinal osteoarthritis Spinal region: unspecified Q ualified Code(s): M47.9 - Spondylosis, unspecified (6) Uncontrolled hypertension: (7) Hyponatremia: (8) Pulmonary nodules: PLAN: Plan 1. Intractable back pain with CT of thoracic spine this admission positive for compression fractures at T5 and T7 of uncertain age with MRI recommended and chronic T8 compression fracture with evidence of previous vertebroplasty in the setting of known kyphoscoliosis, osteoporosis and OA - Admit to general medical floor under observation status. Place Lidoderm patch over affected area 12 hours daily. Give Tylenol as needed for [id number] (level 1-5/10) pain or fever. Give oxycodone as needed for severe (level 6-10/10) pain. Check MRI of thoracic spine to confirm acuity of compression fractures given patient's severe symptoms. Finally, we will consult orthopedic spine surgeon on-call to see this patient on rounds in the a.m. for further recommendations with help appreciated in advance. 2. Uncontrolled hypertension with blood pressure 179/95 mmHg present on admission complicating #1 - Continue home regimen plus give IV hydralazine as needed for systolic blood pressure greater than 160 mmHg. 3. Mild hyponatremia of 130 mmol/L present on admission compounding #1 & #2 - Give NS IV fluid and recheck level in a.m. to ensure improvement. 4. CT of abdomen pelvis revealed small nodular opacities in the Left lower lobe thought to be acutely inflammatory or postinflammatory with malignancy not excluded and follow-up CT imaging recommended in 4 to 6 weeks to confirm resolution in the setting of known previous tobacco abuse; with subsequent COPD and heterozygous alpha 1 antitrypsin deficiency state with a history of pulmonary nodules - Noted. Her discharge plan will need to include recommendations for CT scan to fulfill radiology requirement for surveillance. 5. Hyperlipidemia - Resume statin as previous. 6. History of malignant neoplasm of head and neck - Noted. 7. CAD; s/p CO - Noted. 8. History of Takotsubo cardiomyopathy - Noted. 9. History pericardiectomy - Noted. 10. History of hysterectomy - Noted. 11. History of chronic tonsillitis - Noted with no active issues at this time. 12. Seasonal allergies - Stable. 13. GERD - Resume PPI. 14. History of bilateral cataracts; s/p extraction - Noted. 15. DVT prophylaxis - SCDs only at this time in case vertebroplasty is needed. Total time: Approximately 70 minutes. Charges/Coding Visit Charges OBSV E&M: 12724 Observ/hosp same date L2
[2024-06-21] MEDS: Morphine 4 MG/ML Syringe IV (03:47)
--- NOTE | 2024-06-21 05:10 | MRI_ITS ---
STUDY: MRI THORACIC SPINE WITHOUT CONTRAST REASON FOR EXAM: Female, 78 years old. T5 and T7 compression fractures noted on CT. TECHNIQUE: Standardized fat and water weighted pulse sequences were obtained in the sagittal and axial planes. COMPARISON: CT 06/21/2024 FINDINGS: There is an increased kyphosis of the thoracic spine. Mild levoscoliosis centered at T7. Chronic mild wedge compression fractures of T5, T7, T8 with vertebroplasty at T8 and no marrow edema or retropulsion into the spinal canal. T1-2, T2-3, T3-4, T4-5, T5-6, T6-7, T7-8, T8-9, T9-10, T10-11, T11-12: Normal endplates. Normal disc hydration, heights and morphology of the corresponding intervertebral discs. Normal central canal and intervertebral neural foramina at the corresponding levels. Normal visualized thoracic cord. Normal conus medullaris that terminates at the L1.. The soft tissue structures are unremarkable. MRI/Spine Thoracic (Routine) IMPRESSION: Chronic mild compression fractures of the midthoracic spine with increased kyphosis but no retropulsion into the spinal canal with no severe spinal stenosis or cord compression. Electronically Signed: Michael Botello MD at 19:36 EDT ,
[2024-06-21] MEDS: Lidocaine 5% Patch 2 PATCH TOPICAL (05:50)
[2024-06-21] MEDS: Meloxicam 15 MG Tablet PO ×2 (05:51→21:25)
[2024-06-21] MEDS: Pantoprazole Sodium 40 MG Tablet PO (05:51)
[2024-06-21] MEDS: Acetaminophen 325 MG Tablet 650 MG PO (06:13)
[2024-06-21] MEDS: 0.9% Saline Lock 10 ML Syringe IV (06:13)
[2024-06-21] MEDS: 0.9% Normal Saline (1000mL) 1,000 ML 60 ML IV (06:13)
--- NOTE | 2024-06-21 06:53 | PN.HOSP_ITS ---
Reason for Visit Reason for Visit: Intractable back pain Subjective Subjective Patient is a 78-year-old white female with a history of compression fractures and previous kyphoplasty who presented to the emergency department at [facility] early on the morning of 06/21/2024 complaining of intractable thoracic back pain. Patient reported that she had been having some back pain as of recently that was acute on chronic but had been getting better over several days prior to presentation however she went to the store and leaning forward to put eggs on her front seat and developed excruciating back pain. She tried to go home but her symptoms did not improve show she presents emergency department for evaluation. She indicated on presentation that her symptoms were similar to when she had previous compression fractures. Vital signs on presentation showed temperature of 97, heart rate 91, blood pressure 175/92, respiratory rate is 18 and oxygen saturation was 99% on room air. CBC was unremarkable. Chemistry panel showed chronic stable hyponatremia with a sodium of 130, normal renal function, normal bilirubin, normal LFTs and alk phos and normal TSH. UA was not consistent with infection. CT of the thoracic spine showed mild to moderate compression fractures from T5-T7 of undetermined age and MRI was recommended for assessing acuity as well as a chronic T8 compression fracture with previous vertebroplasty. Nodular opacities that were small were noted in the left lower lobe which were felt to be either acute inflammatory or postinflammatory but not on previous CT when compared and repeat CT was recommended. Patient states she still having significant pain but improved with medication. Not yet try to get out of bed. We did discuss that she would try to get out of bed today and see how she did with therapy. If she felt her pain was well- managed may be able to get her out of the hospital tomorrow with outpatient follow-up with pain management however if her pain is not well enough controlled with the current regimen which is fairly aggressive she will stay for evaluation by pain management on Sunday. Objective Data Objective Data Vital Signs: Vital Signs Temp Pulse Resp BP Pulse Ox O2 Del Method 97.6 F L 78 16 139/83 H 95 Room Air 06/21/24 05:56 06/21/24 05:56 06/21/24 05:56 06/21/24 05:56 06/21/24 05:56 06/21/24 05:56 Oxygen Delivery Method Room Air Weight: 50.4 kg Body Mass Index (BMI) 18.9 Intake & Output: Intake and Output for Last 24 Hours 06/19/24 06/20/24 06/21/24 23:59 23:59 23:59 Intake Total 1000 / 1000 Balance 1000 / 1000 Lab / Micro Data 06/21/24 00:25 06/21/24 00:25 Labs: Laboratory Results - last 24 hr 06/21/24 00:25: WBC 8.6, RBC 4.15 L, Hgb 12.5, Hct 38.0, MCV 91.6, MCH 30.1, MCHC 32.9, RDW Std Deviation 46.4 H, RDW Coeff of Dianne 13.7, Plt Count 363, MPV 7.9, Immature Gran % (Auto) 0.300, Neut % (Auto) 73.6 H, Lymph % (Auto) 17.6 L, [place] % (Auto) 7.5, Eos % (Auto) 0.5, Baso % (Auto) 0.5, Absolute Neuts (auto) 6.3, Absolute Lymphs (auto) 1.51, Nucleated RBC % 0, Sodium 130 L, Potassium 3.8, Chloride 93 L, Carbon Dioxide 30.0, Anion Gap 7, BUN 13, Creatinine 0.76, Est GFR (MDRD) Af Amer 95, Est GFR (MDRD) Non-Af 78, BUN/Creatinine Ratio 17.1, Glucose 122 H, Calcium 9.3, Total Bilirubin 0.40, AST 23, ALT 31, Alkaline Phosphatase 103, Total Protein 8.0, Albumin 4.4, Globulin 3.6, Albumin/Globulin Ratio 1.2, TSH 2.650, Urine Color Yellow, Urine Clarity Clear, Urine pH 7.0, Ur Specific [place] 1.010, Urine Protein Negative, Urine Glucose (UA) Normal, Urine Ketones Negative, Urine Occult Blood 25 H, Urine Nitrite Negative, Urine Bilirubin Negative, Urine Urobilinogen Normal, Ur Leukocyte Esterase 25 H, Urine RBC 0 SEEN, Urine WBC 0-5 SEEN, Ur Squamous Epith Cells 0 SEEN, Urine Bacteria 0 SEEN, Urine Mucus 0 SEEN Radiography Diagnostic Testing: Radiology Impression Thoracic Spine CT 06/21/24 23:56 IMPRESSION: Mild to moderate compression fractures at T5 and T7, uncertain age. MRI may be helpful for further evaluation. Chronic T8 compression fracture with vertebroplasty. Small nodular opacities in the left lower lobe may be acute inflammatory or postinflammatory. Not present on prior CT chest. Nodule/malignancy not entirely excluded. CT chest imaging follow-up recommended in 4-6 weeks to confirm resolution. Electronically Signed: Marlena Alvarenga MD at 2:49 EDT , Abdomen/Pelvis CT 06/21/24 23:57 IMPRESSION: Colonic diverticulosis without evidence of acute diverticulitis. Slightly dilated pancreatic duct. Prominent common bile duct. MRI/MRCP may be helpful for further evaluation if clinically indicated. Electronically Signed: Marlena Alvarenga MD at 3:05 EDT , Physical Exam Const alert and oriented x3 General Appearance: cooperative Assessment & Plan Assessment/Plan (1) Pulmonary nodules: (2) Compression fracture of thoracic vertebra: QUALIFIERS: Encounter type: initial encounter Thoracic vertebra fracture level: T6 Qualified Code(s): S22.050A - Wedge compression fracture of T5-T6 vertebra, initial encounter for closed fracture (3) Intractable back pain: (4) Dilated pancreatic duct: PLAN: Plan Intractable back pain secondary to suspected acute versus subacute thoracic compression fractures from T5-T7 -MRI thoracic spine pending to further evaluate thoracic spine compression fractures for acuity -Discontinue as needed Tylenol and transition to scheduled Tylenol 1 g every 8 -Continue home meloxicam but monitor renal function closely and continue home PPI -As needed oxycodone -Continue lidocaine patches -Check vitamin D level -PT/OT consultation -Consult pain management as patient has had previous kyphoplasty and if these are acute she may benefit from this again for pain management purposes -Case management/social work consultation for assistance with discharge as patient may need outpatient therapy versus home health versus SNF depending on treatment plan and functional status Old T8 compression fracture -Status post kyphoplasty Pulmonary nodules -Noted on thoracic spine imaging -Outpatient follow-up CT recommended in 6 to 8 weeks for clearance -Patient does have known history of alpha-1 antitrypsin deficiency Dilated pancreatic duct -No abdominal pain -Liver enzymes and bilirubin are within normal limit -Would recommend outpatient follow-up Chronic hyponatremia -Sodium is stable when compared to previous -Continue to monitor periodically for stability -Patient is on SSRI at low-dose if sodium drops could consider holding this and monitoring response however sodium is higher than it has been previously and appears to be stable GERD -Continue PPI -Continue Carafate CAD/essential hypertension/HPL -Continue home amlodipine -Continue home metoprolol -Continue home pravastatin -As needed IV hydralazine -Blood pressure on admission may be related to uncontrolled pain will monitor before adding any other agents at this time -Avoid diuretics due to hyponatremia DVT prophylaxis -Start subcu Lovenox 40 daily CODE STATUS -Full code
[2024-06-21] MEDS: PARoxetine 10 MG Tablet 5 MG PO (08:16)
[2024-06-21] MEDS: Multivitamins,Therapeutic Tablet 1 TABLET PO (08:17)
[2024-06-21] MEDS: amLODIPine 5 MG Tablet PO (08:17)
[2024-06-21] MEDS: Metoprolol(XL)Succ 50 MG Tablet PO (08:17)
[2024-06-21] MEDS: FLU VACCINE **HIGH DOSE** TV 24-25 180 MCG/0.5 ML SYRINGE IM (08:25)
[2024-06-21] MEDS: Acetaminophen 500 MG Tablet 1000 MG PO ×2 (13:30→21:25)
[2024-06-21] MEDS: oxyCODONE 5 MG Tablet PO (19:44)
[2024-06-21] MEDS: Calcium Carb/Vitamin D 1 TABLET Tablet 3 TABLET PO (21:23)
[2024-06-21] MEDS: Pravastatin 80 MG Tablet PO (21:24)
[2024-06-21] MEDS: Ensure Plus High Protein 120 ML LIQUID PO (21:29)
--- NOTE | 2024-06-21 23:56 | CT_ITS ---
INDICATION: midline pain hx of compression fx in past lumbar EXAMINATION: CT THORACIC SPINE - CT Spine Thoracic W/O Contrast Injection TECHNIQUE: Helically acquired images were obtained of the thoracic spine. 2D reformats were reviewed. A radiation dose optimization technique was used for this scan. The protocol utilizes one or more of the following dose reduction techniques: automated exposure control, adjustment of mA and/or kV according to patient size,and/or use of iterative reconstruction technique. IV Contrast dosage and agent: None. RADIATION DOSAGE (If Supplied By Facility): CTDIvol = ( 12.32 ) mGy, DLP = ( 992.72 ) mGycm COMPARISON: Prior study dated: CT chest 06/27/2017. FINDINGS: ALIGNMENT: No subluxation. Kyphosis. Scoliosis. MINERALIZATION: Osteopenic. VERTEBRAL BODIES: T8 vertebroplasty chronic compression abnormality. T5: Mild vertebral body compression fracture with approximately 50% vertebral body height loss; and T7: Mild compression fracture with 45% vertebral body height loss, uncertain age, not present on the prior CT chest from 06/27/2017. DISC SPACES: Unremarkable. POSTERIOR ELEMENTS: Unremarkable. SPINAL CANAL: Maintained. PARASPINAL SOFT TISSUES: Unremarkable. OTHER: Interstitial changes in the lung apices is not significantly changed compared to prior CT chest. Cluster of small nodular opacities in the left lower lobe not present on the prior. Large cystic structure in the left upper abdomen partially included, presumed renal. CT abdomen and pelvis was obtained and reported separately. CT/Spine Thoracic without Contras IMPRESSION: Mild to moderate compression fractures at T5 and T7, uncertain age. MRI may be helpful for further evaluation. Chronic T8 compression fracture with vertebroplasty. Small nodular opacities in the left lower lobe may be acute inflammatory or postinflammatory. Not present on prior CT chest. Nodule/malignancy not entirely excluded. CT chest imaging follow-up recommended in 4-6 weeks to confirm resolution. Electronically Signed: Marlena Alvarenga MD at 2:49 EDT ,
--- NOTE | 2024-06-21 23:57 | CT_ITS ---
EXAM: CT Abdomen And Pelvis W/ Contrast Injection HISTORY: low back pain TECHNIQUE: Routine protocol CT abdomen pelvis. IV Contrast: IV 75mL [id number]-[id number] . Oral Contrast: without. Sagittal and coronal images were reconstructed. RADIATION DOSAGE (If Supplied By Facility): CTDIvol = ( 12.32 ) mGy, DLP = ( 992.72 ) mGycm Individualized dose optimization techniques were used for this CT. COMPARISON: CT lumbar spine 05/22/2024. LIMITATIONS: None. FINDINGS: LOWER CHEST: Minimal dependent atelectasis. LIVER: Small cyst right lobe. GALLBLADDER/BILE DUCTS: No calcified gallstones identified in the gallbladder. Common bile duct and central intrahepatic ducts are prominent. PANCREAS: Pancreatic duct is slightly dilated. No adjacent stranding or collection. SPLEEN: Unremarkable. ADRENAL GLANDS: Unremarkable. KIDNEYS / URETERS: Large cyst upper pole left kidney approximately 9 x 6.5 cm, no follow-up needed. No hydronephrosis. BOWEL / MESENTERY: Scattered diverticula throughout the colon. No bowel obstruction. APPENDIX: Not identified. PERITONEUM: No free air. No free fluid. VESSELS: Abdominal aorta is normal caliber. RETROPERITONEUM: Unremarkable. REPRODUCTIVE ORGANS: Unremarkable. BLADDER: Unremarkable. ABDOMINAL WALL: Unremarkable. BONES: No acute abnormality. Surgical hardware in the left femur. Degenerative changes in the lumbar spine. No acute fracture demonstrated. Focal angulation of the lower sacrum/coccygeal junction possibly an old fracture OTHER: None. CT/Abdomen/Pelvis W IV Cont ONLY IMPRESSION: Colonic diverticulosis without evidence of acute diverticulitis. Slightly dilated pancreatic duct. Prominent common bile duct. MRI/MRCP may be helpful for further evaluation if clinically indicated. Electronically Signed: Marlena Alvarenga MD at 3:05 EDT ,
[2024-06-22 01:09] VITALS: BP 137/87; PULSE 75; RESP 14; TEMP 36.2; O2SAT 97
[2024-06-22 04:12] VITALS: BMI 19.5
[2024-06-22 05:10] VITALS: BP 157/82; PULSE 70; RESP 16; TEMP 36.4; O2SAT 95
[2024-06-22] MEDS: Acetaminophen 500 MG Tablet 1000 MG PO ×2 (05:12→15:00)
[2024-06-22] MEDS: 0.9% Saline Lock 10 ML Syringe IV (05:13)
[2024-06-22 05:57] LABS: Absolute Lymphocyte Count 1.29 X10^3/uL (0.83-4.51); Basophil# 0.03 X10^3/uL; Basophil% 0.4 % (0-1); Eosinophil# 0.06 X10^3/uL; Eosinophils% 0.8 % (0-5); Hematocrit 33.8 % (37-47); Hemoglobin 10.9 g/dL (12.0-15.0); Lymphocyte # 1.29 X10^3/ul (0.83-4.51); Lymphocyte % 18.2 % (19-41); Mean Corp Hgb Conc 32.2 g/dL (32-36); Mean Corpuscular Hgb 29.6 pg (27.0-32.0); Mean Corpuscular Volume 91.8 fL (81-99); Mean Platelet Vol. 8.4 fl (6.2-12.0); Monocyte# 0.69 X10^3/uL; Monocyte% 9.7 % (0-10); NRBC Flagged by Analyzer 0 % (0-5); Neutrophil # 4.98 X10^3/uL (2.7-7.7); Neutrophil % 70.3 % (47-70); Platelet Count 308 K/mm3 (150-450); RBC Distribution Width CV 13.9 % (11.6-14.6); Red Blood Count 3.68 M/mm3 (4.2-5.4); White Blood Count 7.1 K/mm3 (4.4-11.0)
[2024-06-22 06:29] LABS: ALB/GLOB Ratio 1.2 RATIO (0.9-2.4); AST(SGOT) 21 U/L (15-37); Alanine Aminotransfer ALT/SGPT 24 U/L (13-56); Albumin, Serum 3.6 g/dL (3.2-5.0); Alkaline Phosphatase 85 U/L (45-117); Anion Gap 6 (5-15); BUN 21 mg/dL (7-18); Calcium,Total 9.7 mg/dL (8.5-10.1); Chloride 93 mmol/L (98-107); Creatinine, Serum 0.72 mg/dL (0.55-1.02); EST Glomerular Filtration Rate 83 mL/min (>60); Est Glom Filt Rate - Afr Amer 100 mL/min (>60); Estimated Creatinine Clearance 48.16 ml/min; Glucose 106 mg/dL (74-106); Magnesium 2.2 mg/dL (1.6-2.6); Phosphorus 4.7 mg/dL (2.5-4.9); Potassium 4.1 mmol/L (3.5-5.1); Protein, Total 6.6 g/dL (6.4-8.2); Sodium Level 129 mmol/L (136-145)
[2024-06-22] MEDS: Multivitamins,Therapeutic Tablet 1 TABLET PO (08:32)
[2024-06-22] MEDS: Pantoprazole Sodium 40 MG Tablet PO (08:32)
[2024-06-22 08:33] VITALS: PULSE 83
[2024-06-22] MEDS: Metoprolol(XL)Succ 50 MG Tablet PO (08:33)
[2024-06-22] MEDS: PARoxetine 10 MG Tablet 5 MG PO (08:36)
[2024-06-22] MEDS: Lidocaine 5% Patch 2 PATCH TOPICAL (08:37)
[2024-06-22] MEDS: Polyethylene Glycol 3350 17 GM PACKET PO (08:38)
[2024-06-22] MEDS: amLODIPine 5 MG Tablet PO (08:41)
[2024-06-22] MEDS: Ensure Plus High Protein 120 ML LIQUID PO (08:41)
[2024-06-22 08:48] VITALS: BP 140/84; PULSE 83; RESP 16; TEMP 36.4; O2SAT 98
--- NOTE | 2024-06-22 14:01 | PCM.DC.SUM ---
Providers Date of Admission: 06/21/24 Primary Care Physician: Dr. Malcolm Mariscal MD Reason For Visit: INTRACTABLE BACK PAIN WITH COMPRESSION FRACTURE AT Diagnosis Discharge Diagnosis (1) Pulmonary nodules: Status: Acute Code(s): R91.8 - Other nonspecific abnormal finding of lung field (2) Compression fracture of thoracic vertebra: Status: Acute Code(s): S22.000A - Wedge compression fracture of unspecified thoracic vertebra, initial encounter for closed fracture Qualifiers: Encounter type: initial encounter Thoracic vertebra fracture level: T6 Qualified Code(s): S22.050A - Wedge compression fracture of T5-T6 vertebra, initial encounter for closed fracture (3) Intractable back pain: Status: Acute Code(s): M54.9 - Dorsalgia, unspecified (4) Dilated pancreatic duct: Status: Acute Code(s): K86.89 - Other specified diseases of pancreas Medications at Discharge Home Medications albuterol sulfate 90 mcg/actuation aerosol inhaler 1 - 2 puff inhalation Q6H PRN PRN Wheezing ##1 05/30/17 sucralfate 1 gram tablet 1 g PO QHS PRN reflux 10/29/17 nitroglycerin 0.4 mg sublingual tablet 0.4 mg sublingual Q5M PRN Chest Pain 07/16/19 multivitamin 1 tab PO DAILY 05/18/21 lorazepam 0.5 mg tablet 0.5 mg PO DAILY PRN PRN Anxiety 08/09/21 calcium 500 mg-vitamin D3 1,000 unit-vitamin K 40 mcg chewable tablet 3 tab PO QPM supplement 05/31/22 paroxetine HCl 10 mg tablet 5 mg PO DAILY 05/31/22 pravastatin 80 mg tablet See Rx Instructions .Route .COMPLEX #90 tabs 07/31/23 amlodipine 5 mg tablet 5 mg PO DAILY #90 tabs 10/16/23 pantoprazole 40 mg tablet,delayed release 40 mg PO DAILY for acid reflux #90 TABLETS 12/05/23 metoprolol succinate 50 mg tablet,extended release 24 hr 50 mg PO DAILY blood pressure/heart #90 tabs 02/13/24 meloxicam 15 mg tablet 15 mg PO QHS 06/21/24 acetaminophen 500 mg tablet 1,000 mg (2 x 500 mg) PO Q8 #0 tabs 06/22/24 lidocaine 5 % topical patch 2 patch topical DAILY #15 ea 06/22/24 oxycodone 5 mg tablet 5 mg PO Q6H PRN PRN Pain Score 6-10 7 days #28 tabs 06/22/24 Hospital Course Operations None Procedures - (CT of the abdomen and pelvis/CT of the thoracic spine/MRI of the thoracic spine) Summary of Care Provided Minutes Spent on Discharge: 38 Hospital Course: Mrs. Brannon is a 78-year-old white female with a history of compression fractures and previous kyphoplasty who presented to the emergency department at [facility] early on the morning of 06/21/2024 complaining of intractable thoracic back pain. Patient reported that she had been having some back pain as of recently that was acute on chronic but had been getting better over several days prior to presentation however she went to the store and leaning forward to put eggs on her front seat and developed excruciating back pain. She tried to go home but her symptoms did not improve show she presents emergency department for evaluation. She indicated on presentation that her symptoms were similar to when she had previous compression fractures. Vital signs on presentation showed temperature of 97, heart rate 91, blood pressure 175/92, respiratory rate is 18 and oxygen saturation was 99% on room air. CBC was unremarkable. Chemistry panel showed chronic stable hyponatremia with a sodium of 130, normal renal function, normal bilirubin, normal LFTs and alk phos and normal TSH. UA was not consistent with infection. CT of the thoracic spine showed mild to moderate compression fractures from T5-T7 of undetermined age and MRI was recommended for assessing acuity as well as a chronic T8 compression fracture with previous vertebroplasty. Nodular opacities that were small were noted in the left lower lobe which were felt to be either acute inflammatory or postinflammatory but not on previous CT when compared and repeat CT was recommended. We did obtain an MRI of the thoracic spine to assess the acuity of her compression fractures. They were reported out as chronic fractures at T5-T7 with previous noted kyphoplasty at T8. By the a.m. of 06/22/2024 she was feeling much better and able to move around independently. She did feel she would be able to go home and follow-up as an outpatient next week with pain management. I have recommended that she call pain management early tomorrow morning and the number was given to her in her discharge paperwork. She would like to be evaluated for kyphoplasty since this has been an ongoing problem for at least 5 weeks now and she did have good success with previous kyphoplasty. We did discharge her with pain medication including lidocaine patch, continued her home meloxicam, and as needed oxycodone. We also did discuss the need for a bowel regimen while she is on oxycodone to prevent constipation. She voiced understanding. She was discharged home in stable condition on 06/22/2024. She is also to follow-up with her primary care physician in the next week. Vitamin D level will was pending at the time of discharge and if less than 30 she should be transitioned to 50,000 units of ergocalciferol weekly for the next 6 to 7 weeks with a follow-up vitamin D level after treatment. Discharge diagnoses: Intractable back pain secondary to thoracic compression fractures T 5 through T7 secondary to osteoporosis Dilated pancreatic duct--> no chemical abnormalities here so not pursued any further in the acute care setting but may require outpatient MRCP at primary care physician's discretion Pulmonary nodules--> follow-up CT recommended in the next 6 weeks for clearance Chronic hyponatremia-stable GERD CAD Essential hypertension Hyperlipidemia Physical Exam Narrative Patient states she is feeling much better than yesterday and is able to ambulate independently. Mobility is improved. Const alert, oriented x3, no apparent distress, average body habitus and no limitations Constitutional Narrative: Frail-appearing, older, white female, up ambulating independently in the room with a walker, appears comfortable, nontoxic General Appearance: cooperative, comfortable, well kempt and well developed Exam Limitations: no limitations HEENT normocephalic, head/scalp atraumatic and moist oral mucous membranes Resp normal respiratory effort, no retractions, no use of accessory muscles and clear to auscultation bilaterally Cardio regular rate, regular rhythm, S1 normal heart sound, S2 normal heart sound, no murmurs, no rub, no gallops and no clicks GI normal to inspection, nondistended, normoactive bowel sounds, soft to palpation and non-tender Neuro oriented x3, moves all extremities and no focal motor deficits Speech: speech normal Psych affect normal Weight / BMI Weight Weight: 51.8 kg Body Mass Index (BMI) 19.5 ABG / Lab / Microbiology Data 06/22/24 05:07 06/22/24 05:07 Laboratory: Laboratory Results - last 24 hr 06/22/24 05:07: WBC 7.1, RBC 3.68 L, Hgb 10.9 L, Hct 33.8 L, MCV 91.8, MCH 29.6, MCHC 32.2, RDW Std Deviation 47.0 H, RDW Coeff of Dianne 13.9, Plt Count 308, MPV 8.4, Immature Gran % (Auto) 0.600, Neut % (Auto) 70.3 H, Lymph % (Auto) 18.2 L, [place] % (Auto) 9.7, Eos % (Auto) 0.8, Baso % (Auto) 0.4, Absolute Neuts (auto) 5.0, Absolute Lymphs (auto) 1.29, Nucleated RBC % 0, Sodium 129 L, Potassium 4.1, Chloride 93 L, Carbon Dioxide 30.0, Anion Gap 6, BUN 21 H, Creatinine 0.72, Estim Creat Clear Calc 48.16, Est GFR (MDRD) Af Amer 100, Est GFR (MDRD) Non-Af 83, BUN/Creatinine Ratio 29.0 H, Glucose 106, Calcium 9.7, Phosphorus 4.7, Magnesium 2.2, Total Bilirubin 0.40, AST 21, ALT 24, Alkaline Phosphatase 85, Total Protein 6.6, Albumin 3.6, Globulin 3.0, Albumin/Globulin Ratio 1.2 Radiography Diagnostic Testing: Radiology Impression Thoracic Spine MRI 06/21/24 05:10 IMPRESSION: Chronic mild compression fractures of the midthoracic spine with increased kyphosis but no retropulsion into the spinal canal with no severe spinal stenosis or cord compression. Electronically Signed: Michael Botello MD at 19:36 EDT , D/C Instructions Discharge Diet: Low fat / Low cholesterol Discharge Activity: Return to Normal Activity (Avoid excessive flexion) and Use Walker Meaningful Use Info Meaningful Use Meaningful Use Diagnoses (Choose all that apply): None applicable Ischemic Stroke Statin Dosing Therapy Reference: STATIN DOSE THERAPY REFERENCE: * Patients > 75 years receive moderate or high dose statin therapy. * Patients 75 years or YOUNGER should receive HIGH intensity statin dose unless contraindicated. You will be required to document reason for non-treatment if statin daily dose does not meet guidelines. HIGH DOSE STATIN THERAPY DAILY Atorvastatin > than or = to 40 mg Rosuvastatin > than or = to 20 mg Amlodipine + Atorvastatin > than or = to 2.5/40 mg Ezetimibe + Simvastatin 10/80 mg Simvastatin 80mg Discharge Plan Admission Admit Date/Time: 06/21/24 04:09 Primary Reason for Your Visit: Intractable back pain Attending Provider: Saundra Medel Primary Care Provider: Malcolm Mariscal Consulting Providers: Ian Tang Instructions Additional Instructions / Restrictions: 1. Please call Dr. Wu's office tomorrow morning and let them know you are in the hospital for intractable mid back pain and were found to have compression fractures at T5-T7 and we asked you to follow-up with them to see if you are a candidate for kyphoplasty since this has been an ongoing issue for several weeks. Also tell them you have previous kyphoplasty at T8 2. Please utilize prune juice, MiraLAX, and/or senna to avoid constipation 3. Avoid a lot of activity that involves bending forward as this will likely exacerbate your symptoms 4. We did check a vitamin D level but this was pending at the time of discharge. Please tell your primary care doctor that this was done as low vitamin D can affect your absorption of calcium and worsen osteoporosis. You may need extra replacement of vitamin D above what you are on at this time Discharge Orders/Prescriptions Prescriptions: New lidocaine 5 % Adhesive Patch,Medicated 2 patch topical DAILY Qty: 15 0RF Protocol: *Topical Application Instructions APPLICATION INSTRUCTIONS: Apply to mid back. oxycodone 5 mg Tablet 5 mg PO Q6H PRN PRN (Reason: Pain Score 6-10) 7 Days Qty: 28 0RF acetaminophen 500 mg Tablet 1,000 mg PO Q8 Qty: 0 0RF Continued multivitamin Tablet 1 tab PO DAILY paroxetine HCl 10 mg tablet 5 mg PO DAILY amlodipine 5 mg tablet 5 mg PO DAILY Qty: 90 3RF lorazepam 0.5 mg tablet 0.5 mg PO DAILY PRN PRN (Reason: Anxiety) Patient Comments: anxiety calcium-vitamin D3-vitamin K 500 mg-1,000 unit-40 mcg tablet,chewable 3 tab PO QPM Patient Comments: supplement sucralfate 1 GM tablet 1 g PO QHS PRN (Reason: reflux) Patient Comments: stomach albuterol sulfate 1 INHALER inhaler 1 - 2 puff INHALATION Q6H PRN PRN (Reason: Wheezing) Qty: 1 0RF Patient Comments: asthma/copd nitroglycerin 0.4 MG tablet, sublingual 0.4 mg sublingual Q5M PRN (Reason: Chest Pain) meloxicam 15 mg tablet 15 mg PO QHS pravastatin 80 mg tablet See Rx Instructions .ROUTE .COMPLEX Qty: 90 3RF Dose Instruction: TAKE 1 TABLET AT BEDTIME FOR CHOLESTEROL Rx Instructions: TAKE 1 TABLET AT BEDTIME FOR CHOLESTEROL pantoprazole 40 mg tablet,delayed release (DR/EC) 40 mg PO DAILY Qty: 90 3RF metoprolol succinate 50 mg tablet extended release 24 hr 50 mg PO DAILY Qty: 90 3RF Discontinued oxycodone 5 mg tablet 5 mg PO Q6H PRN (Reason: pain) 3 Days Qty: 12 0RF Referrals / Follow Up: Malcolm Mariscal MD [Primary Care Provider] - Within 1 Week Choco Wu MD [Med Staff - Active Staff] - Within 1 Week (Call Sunday and try to get an appointment to be seen within the next 7 days as their schedule allows. Tell them you are in the hospital for intractable pain related to compression fractures of the thoracic spine.) Disposition Disposition (needs filled in before D/C Order can be placed): Home, Self Care Charges/Coding Visit Charges Inpatient E&M: 00977 Disch Hosp
[2024-06-23 08:02] LABS: Vitamin D,25 Hydroxy 37.2 ng/mL
== END 2024-06-22 16:08 | disposition home or self-care (01) ==
LOC: ED 06-21 03:44 → MS3 06-21 04:23
PROVIDERS: Admitting Provider Internal Medicine; Emergency Provider Emergency Medicine; PCP Family Medicine; Visit Provider Internal Medicine
DX: M80.08XA Age-related osteoporosis with current pathological fracture, vertebra(e), initial encounter for fracture (principal); J44.89 Other specified chronic obstructive pulmonary disease; E87.1 Hypo-osmolality and hyponatremia; I51.81 Takotsubo syndrome; E78.5 Hyperlipidemia, unspecified; I25.10 Atherosclerotic heart disease of native coronary artery without angina pectoris; K57.30 Diverticulosis of large intestine without perforation or abscess without bleeding; K21.9 Gastro-esophageal reflux disease without esophagitis; K86.89 Other specified diseases of pancreas; I10 Essential (primary) hypertension; Z23 Encounter for immunization; R91.8 Other nonspecific abnormal finding of lung field; Z86.11 Personal history of tuberculosis; I25.2 Old myocardial infarction; Z79.899 Other long term (current) drug therapy
CPT/HCPCS: 36415; 72128; 72146; 74177; 80053; 81001; 82306; 83735; 84100; 84443; 85025; 90662; 93005; 94668; 96374; 96375; 96376; 97162; 97166; 97530; 97802; 99221; 99284; J7030; Q9967; A4216; G0378; J2405

== ENCOUNTER 2024-06-27 12:15 | Emergency (ER) | payer MEDICARE, OTHER, SELFPAY ==
[2024-06-27 12:17] VITALS: BP 202/114; PULSE 97; RESP 18; TEMP 36.7; O2SAT 100; BMI 20.7
--- NOTE | 2024-06-27 12:55 | CT_ITS ---
STUDY: CT BRAIN WITHOUT CONTRAST REASON FOR EXAM: Female, 78 years old. Headache RADIATION DOSAGE (If Supplied By Facility): CTDIvol = ( 47.06 ) mGy, DLP = ( 890.33 ) mGycm TECHNIQUE: Transaxial CT imaging of the brain was performed without administration of intravenous contrast material. Individualized dose optimization techniques were used for this CT. COMPARISON: Comparison is made with prior study dated August 30, 2012. FINDINGS: Normal soft tissue structures. Normal calvarium. There is mild cerebral atrophy with widening of the extra-axial spaces and ventricular dilatation. There are areas of decreased attenuation within the white matter tracts of the supratentorial brain, consistent with microvascular disease changes. 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 Normal brainstem. Normal cerebellum. There is no intracranial hemorrhage. There are no findings of an acute ischemic infarction. Atherosclerotic plaque formation of the cavernous portions of the internal carotid arteries bilaterally. Normal visualized paranasal sinuses. CT/Brain/Head without Contrast IMPRESSION: Chronic involutional changes of the brain. Electronically Signed: Klever Law MD at 14:14 EDT ,
--- NOTE | 2024-06-27 12:55 | EKG12_ITS ---
Test Reason : HTN Blood Pressure : / mmHG Vent. Rate : 094 BPM Atrial Rate : 094 BPM P-R Int : 142 ms QRS Dur : 072 ms QT Int : 352 ms P-R-T Axes : 068 032 061 degrees QTc Int : 440 ms Normal sinus rhythm Minimal voltage criteria for LVH, may be normal variant ( Sokolow-Milligan ) Septal infarct , age undetermined Abnormal ECG Confirmed by JASE SELLERS, LESLIE ([id number]), newspaper editor CHATA BALBUENA ([id number]) on 07/01/2024 2:10:00 PM Referred By: JESUS Confirmed By:LESLIE LAGUNA MD
--- NOTE | 2024-06-27 12:56 | EX.ED.DYSGE1 ---
HPI History of Present Illness Chief Complaint: Hypertension Informant: patient, spouse/S.O. and EMS Narrative Narrative: Patient says she started getting a headache 3 hours ago or so, she checked her blood pressure and it was 190 or something like that, very high, higher than it has been all week. She is been following it, her pressures have been going up 170s-180s, since she had steroid injections in her back a week ago. She states along with that if she was feeling like she was swimmy in her head, she states she gets dizzy like that when she takes Tylenol and she took some Tylenol today but she has never had these other symptoms such as the headache. She is also feeling like she is very burpey and having some nausea but no vomiting or abdominal pain or chest pain or dyspnea. No near-syncope or syncope. The dizziness is no worse when she changes position. [facility] Medical History Depression Hyponatremia Pneumonia Hypertension Headache Cataracts, bilateral Cancer UTI (urinary tract infection) Bone fracture Back problem Arthritis Anemia Seasonal allergies GERD (gastroesophageal reflux disease) Myocardial infarct CAD (coronary artery disease) Pulmonary nodule Bronchitis Old myocardial infarction COPD (chronic obstructive pulmonary disease) Hyperlipidemia History of non-ST elevation myocardial infarction (NSTEMI) Takotsubo cardiomyopathy Atherosclerotic heart disease of [place] coronary artery without angina pectoris Tongue cancer History of coronary vasospasm Osteoporosis Benign essential HTN Asthma Home Medications ?Medication ?Instructions ?Recorded ?Last Taken ?Type albuterol sulfate 90 mcg/actuation 1 - 2 puff inhalation Q6H PRN PRN 05/30/17 Unknown Rx aerosol inhaler Wheezing ##1 sucralfate 1 gram tablet 1 g PO QHS PRN reflux 10/29/17 07/15/19 History nitroglycerin 0.4 mg sublingual 0.4 mg sublingual Q5M PRN Chest 07/16/19 11/18/19 History tablet Pain multivitamin 1 tab PO DAILY 05/18/21 Unknown History lorazepam 0.5 mg tablet 0.5 mg PO DAILY PRN PRN Anxiety 08/09/21 Unknown History calcium 500 mg-vitamin D3 1,000 3 tab PO QPM supplement 05/31/22 Unknown History unit-vitamin K 40 mcg chewable tablet paroxetine HCl 10 mg tablet 5 mg PO DAILY 05/31/22 Unknown History pravastatin 80 mg tablet See Rx Instructions .Route 07/31/23 Unknown Rx .COMPLEX #90 tabs amlodipine 5 mg tablet 5 mg PO DAILY #90 tabs 10/16/23 Unknown Rx pantoprazole 40 mg tablet,delayed 40 mg PO DAILY for acid reflux #90 12/05/23 Unknown Rx release TABLETS metoprolol succinate 50 mg 50 mg PO DAILY blood 02/13/24 Unknown Rx tablet,extended release 24 hr pressure/heart #90 tabs meloxicam 15 mg tablet 15 mg PO QHS 06/21/24 Unknown History acetaminophen 500 mg tablet 1,000 mg (2 x 500 mg) PO Q8 #0 tabs 06/22/24 Unknown Rx lidocaine 5 % topical patch 2 patch topical DAILY #15 ea 06/22/24 Unknown Rx oxycodone 5 mg tablet 5 mg PO Q6H PRN PRN Pain Score 06/22/24 Unknown Rx 6-10 7 days #28 tabs clonidine HCl 0.1 mg tablet 0.1 mg PO TID PRN SBP > 175 #20 06/27/24 Unknown Rx tabs Allergy/AdvReac Type Severity Reaction Status Date / Time umeclidinium (From Anoro AdvReac Intermediate heart Verified 06/27/24 12:21 Ellipta) racing, high bp, anxious vilanterol (From Anoro AdvReac Intermediate heart Verified 06/27/24 12:21 Ellipta) racing, high bp, anxious codeine AdvReac HEART RACES Verified 06/27/24 12:21 Corticosteroids AdvReac high blood Verified 06/27/24 12:21 (Glucocorticoids) pressure indomethacin (From Indocin) AdvReac Abd Verified 06/27/24 12:21 cramps/diarrhea indomethacin sodium (From AdvReac Abd Verified 06/27/24 12:21 Indocin) cramps/diarrhea levofloxacin (From Levaquin) AdvReac INCREASED Verified 06/27/24 12:21 BLOOD PRESSURE nitrofurantoin (From AdvReac Nausea/Vom/ Verified 06/27/24 12:21 Macrobid) Diarrhea propoxyphene napsylate (From AdvReac PASSES OUT Verified 06/27/24 12:21 Darvocet-N 100) Family History Father , age 92, had [place] age 35 Myocardial infarction, Onset Age: 35 Arthritis Mother Asthma Respiratory disease Grandmother Asthma Emphysema lung Respiratory disease Other Heart disease Hypertension Surgical History History of appendectomy H/O kyphoplasty H/O: hysterectomy History of tonsillectomy S/P pericardial window creation History of cataract surgery History of pericardiectomy History of left heart catheterization Social History Smoking Status: Never smoker alcohol intake: never substance use type: does not use what type of physical activity do you participate in: walking frequency: 5-6 times per week ROS ROS ED Constitutional Constitutional ED: Denies chills or fever(s) Eyes Eyes: Denies change in vision or diplopia ENT ENT ED: Denies rhinorrhea or sore throat Cardiovascular Cardiovascular: Denies chest pain or palpitations Respiratory/Chest Respiratory/Chest: Denies cough or dyspnea Gastrointestinal Gastrointestinal: Reports nausea and other Details: burping ; Denies abdominal pain, diarrhea or vomiting Genitourinary Genitourinary ED: Denies dysuria or hematuria Musculoskeletal Musculoskeletal: Denies back pain or neck pain Integumentary Denies abscess or rash Neurologic Neurologic: Reports dizziness and headache(s); Denies abnormal gait, paresthesias or weakness Psychiatric Psychiatric: Reports anxiety; Denies suicidal thoughts EXAM Physical Exam Const Vital Signs: 06/27/24 12:17 06/27/24 12:55 06/27/24 13:07 Temperature 98.0 F Temperature Source Oral Pulse Rate 97 Respiratory Rate 18 Respiratory Effort Normal Non-Labored Respiratory Pattern Normal Blood Pressure 202/114 H Blood Pressure Mean 143 Pulse Ox 100 Oxygen Delivery Method Room Air Room Air 06/27/24 13:16 06/27/24 14:00 06/27/24 15:00 Temperature 97.2 F L 97.5 F L Temperature Source Oral Oral Pulse Rate 77 76 73 Respiratory Rate 16 16 16 Respiratory Effort Respiratory Pattern Blood Pressure 155/81 H 155/81 H 109/69 Blood Pressure Mean 105 105 82 Pulse Ox 97 98 95 Oxygen Delivery Method Room Air Room Air Room Air Positive well nourished and well developed General Appearance ED: well developed and NAD HEENT Reports moist mucous membranes normocephalic and atraumatic Eyes PERRL and EOMs intact bilaterally Neck full ROM and supple Resp normal respiratory effort and clear to auscultation bilaterally Cardio regular rate, regular rhythm and no murmurs GI non-tender and non-distended Auscultation: normoactive bowel sounds Palpation: soft Back/Spine no CVA tenderness Back/Spine Narrative: Severe kyphosis General Back: other FROM Extremity normal to inspection General Extremety ED: Negative for edema, pulses abnormal or tenderness General Extremity: Negative for edema or pulses abnormal Neuro oriented x3, CN's II-XII intact bilaterally and no sensory deficits noted Neuro Narrative: Normal [id number] and [id number] bilaterally. No pathologic nystagmus. Sensorium / Orientation: awake and alert Motor Exam: strength 5/5 throughout Psych Mood & Affect: anxious Skin no rashes or lesions noted and no wounds MDM MDM MDM Narrative Medical decision making narrative: Certainly possible the patient symptoms are being caused primarily by her elevated blood pressure, or that she has another process that is causing her blood pressure to elevate secondarily that is more responsible for her symptoms. In exploring this, labs, EKG, troponin were obtained in addition to CT of the head. I reviewed the images and the report which I agree with, it is negative for any acute. Her EKG shows some suspicion for LVH but is otherwise unremarkable, troponin is negative. In the meantime while we were working her up she was given clonidine 0.2 mg orally and no other medications. Her pressure gradually came down over the next couple hours to a emre of 109/69 and her other vital signs are normal and she feels much better, arguing for blood pressure primarily causing his symptoms. She has multiple medications on her allergy list as increasing her blood pressure as a side effect including steroids which she recently had injected into her back. That might be the cause of this. Given that this will then likely be a temporary elevation of her blood pressure, I think it would be more appropriate for her to continue her blood pressure medications as prescribed and for her to take and as needed clonidine at home if her blood pressure gets very high like over 170. Discussed with them they are comfortable with that plan, close outpatient follow-up advised. Lab Data Attestation: I reviewed the patient's lab results. Labs: Laboratory Results - last 24 hr 06/27/24 13:10 WBC 9.2 RBC 3.94 L Hgb 11.6 L Hct 36.0 L MCV 91.4 MCH 29.4 MCHC 32.2 RDW Std Deviation 46.8 H RDW Coeff of Dianne 13.8 Plt Count 371 MPV 7.8 Immature Gran % (Auto) 0.400 Neut % (Auto) 83.1 H Lymph % (Auto) 8.9 L [place] % (Auto) 7.1 Eos % (Auto) 0.1 Baso % (Auto) 0.4 Absolute Neuts (auto) 7.7 Absolute Lymphs (auto) 0.82 L Nucleated RBC % 0 Sodium 129 L Potassium 3.6 Chloride 94 L Carbon Dioxide 26.0 Anion Gap 9 BUN 11 Creatinine 0.67 Estim Creat Clear Calc 50.85 Est GFR (MDRD) Af Amer 110 Est GFR (MDRD) Non-Af 91 BUN/Creatinine Ratio 16.5 Glucose 117 H Calcium 9.2 Troponin I High Sens 8 Radiography Diagnostic Testing: Clinical Impression(s) from Imaging Studies Brain CT 06/27/24 12:55 IMPRESSION: Chronic involutional changes of the brain. Electronically Signed: Klever Law MD at 14:14 EDT , Rhythm Strip Rhythm Strip: Sinus Rhythm Rate: 94 Ectopy: None EKG Initial EKG: Attestation: I personally reviewed and interpreted this EKG as follows: Interpretation: Sinus Rhythm and No Acute Injury Pattern Prior EKG tracings: available for review Prior: Unchanged Discharge Plan Triage Chief Complaint: Hypertension ED Provider: Tobi Martinez Dx/Rx/DC Orders Clinical Impression: Accelerated hypertension, Acute headache Instructions: Hypertension Dc Prescriptions: New clonidine HCl 0.1 mg tablet 0.1 mg PO TID PRN (Reason: SBP > 175) Qty: 20 0RF No Action multivitamin Tablet 1 tab PO DAILY paroxetine HCl 10 mg tablet 5 mg PO DAILY amlodipine 5 mg tablet 5 mg PO DAILY Qty: 90 3RF lorazepam 0.5 mg tablet 0.5 mg PO DAILY PRN PRN (Reason: Anxiety) Patient Comments: anxiety calcium-vitamin D3-vitamin K 500 mg-1,000 unit-40 mcg tablet,chewable 3 tab PO QPM Patient Comments: supplement sucralfate 1 GM tablet 1 g PO QHS PRN (Reason: reflux) Patient Comments: stomach albuterol sulfate 1 INHALER inhaler 1 - 2 puff INHALATION Q6H PRN PRN (Reason: Wheezing) Qty: 1 0RF Patient Comments: asthma/copd nitroglycerin 0.4 MG tablet, sublingual 0.4 mg sublingual Q5M PRN (Reason: Chest Pain) meloxicam 15 mg tablet 15 mg PO QHS lidocaine 5 % Adhesive Patch,Medicated 2 patch topical DAILY Qty: 15 0RF Protocol: *Topical Application Instructions APPLICATION INSTRUCTIONS: Apply to mid back. oxycodone 5 mg Tablet 5 mg PO Q6H PRN PRN (Reason: Pain Score 6-10) 7 Days Qty: 28 0RF acetaminophen 500 mg Tablet 1,000 mg PO Q8 Qty: 0 0RF pravastatin 80 mg tablet See Rx Instructions .ROUTE .COMPLEX Qty: 90 3RF Dose Instruction: TAKE 1 TABLET AT BEDTIME FOR CHOLESTEROL Rx Instructions: TAKE 1 TABLET AT BEDTIME FOR CHOLESTEROL pantoprazole 40 mg tablet,delayed release (DR/EC) 40 mg PO DAILY Qty: 90 3RF metoprolol succinate 50 mg tablet extended release 24 hr 50 mg PO DAILY Qty: 90 3RF Primary Care Provider: Malcolm Mariscal Referrals: Malcolm Mariscal MD [Primary Care Provider] - As soon as possible Print Language: Micronesian Disposition Disposition: Home, Self Care
[2024-06-27 13:16] VITALS: BP 155/81; PULSE 77; RESP 16; TEMP 36.2; O2SAT 97
[2024-06-27 13:18] LABS: Absolute Lymphocyte Count 0.82 X10^3/uL (0.83-4.51); Absolute Neutrophil Count 7.7 X10^3/uL (2.0-7.7); Basophil# 0.04 X10^3/uL; Basophil% 0.4 % (0-1); Eosinophil# 0.01 X10^3/uL; Eosinophils% 0.1 % (0-5); Hemoglobin 11.6 g/dL (12.0-15.0); Lymphocyte # 0.82 X10^3/ul (0.83-4.51); Lymphocyte % 8.9 % (19-41); Mean Corp Hgb Conc 32.2 g/dL (32-36); Mean Corpuscular Hgb 29.4 pg (27.0-32.0); Mean Corpuscular Volume 91.4 fL (81-99); Mean Platelet Vol. 7.8 fl (6.2-12.0); Monocyte# 0.65 X10^3/uL; Monocyte% 7.1 % (0-10); NRBC Flagged by Analyzer 0 % (0-5); Neutrophil # 7.65 X10^3/uL (2.7-7.7); Neutrophil % 83.1 % (47-70); Platelet Count 371 K/mm3 (150-450); RBC Distribution Width CV 13.8 % (11.6-14.6); RBC Distribution Width SD 46.8 fl (35.1-43.9); Red Blood Count 3.94 M/mm3 (4.2-5.4); White Blood Count 9.2 K/mm3 (4.4-11.0)
[2024-06-27 13:40] LABS: Anion Gap 9 (5-15); BUN 11 mg/dL (7-18); BUN/Creat Ratio 16.5 RATIO (10-20); Calcium,Total 9.2 mg/dL (8.5-10.1); Chloride 94 mmol/L (98-107); Creatinine, Serum 0.67 mg/dL (0.55-1.02); EST Glomerular Filtration Rate 91 mL/min (>60); Est Glom Filt Rate - Afr Amer 110 mL/min (>60); Estimated Creatinine Clearance 50.85 ml/min; Glucose 117 mg/dL (74-106); Potassium 3.6 mmol/L (3.5-5.1); Sodium Level 129 mmol/L (136-145); Troponin-I HS 8 pg/mL (3.0-54.0)
[2024-06-27 14:00] VITALS: BP 155/81; PULSE 76; RESP 16; TEMP 36.4; O2SAT 98
[2024-06-27] MEDS: cloNIDine HCl 0.2 MG Tablet PO (14:07)
[2024-06-27 15:00] VITALS: BP 109/69; PULSE 73; RESP 16; O2SAT 95
[2024-06-27 16:00] VITALS: BP 137/79; PULSE 80; RESP 16; O2SAT 98
[2024-06-27 17:00] VITALS: BP 134/74; PULSE 85; RESP 16; TEMP 36.9; O2SAT 99
== END 2024-06-27 17:35 | disposition home or self-care (01) ==
PROVIDERS: Emergency Provider Emergency Medicine; PCP Family Medicine; Visit Provider Emergency Medicine
DX: I10 Essential (primary) hypertension (principal); J44.9 Chronic obstructive pulmonary disease, unspecified; I25.10 Atherosclerotic heart disease of native coronary artery without angina pectoris; R51.9 Headache, unspecified; E78.5 Hyperlipidemia, unspecified; I25.2 Old myocardial infarction; Z90.49 Acquired absence of other specified parts of digestive tract; Z90.710 Acquired absence of both cervix and uterus; Z85.810 Personal history of malignant neoplasm of tongue; K21.9 Gastro-esophageal reflux disease without esophagitis; Z79.899 Other long term (current) drug therapy; F32.A Depression, unspecified
CPT/HCPCS: 70450; 80048; 84484; 85025; 93005; 99284; A4216

== ENCOUNTER 2024-06-30 12:12 | Emergency (ER) | payer MEDICARE, OTHER, SELFPAY ==
[2024-06-30] VITALS (7 sets, daily range): BP systolic 140–202; BP diastolic 72–104; PULSE 69–115; RESP 14–23; TEMP 36.6–36.9; O2SAT 93–98; BMI 19.0
--- NOTE | 2024-06-30 13:08 | EKG12_ITS ---
Test Reason : WEAKNESS Blood Pressure : / mmHG Vent. Rate : 079 BPM Atrial Rate : 079 BPM P-R Int : 154 ms QRS Dur : 070 ms QT Int : 370 ms P-R-T Axes : 057 018 061 degrees QTc Int : 424 ms Normal sinus rhythm Minimal voltage criteria for LVH, may be normal variant ( Sokolow-Milligan ) Cannot rule out Septal infarct , age undetermined Abnormal ECG Confirmed by Aguila Barbosa ([id number]), metropolitan editor CHATA BALBUENA ([id number]) on 07/02/2024 5:59:16 AM Referred By: Confirmed By:Aguila Barbosa
--- NOTE | 2024-06-30 13:20 | RAD_ITS ---
STUDY: X-RAY CHEST REASON FOR EXAM: Female, 78 years old. Chest pain TECHNIQUE: Single AP portable view of the chest. COMPARISON: Comparison is made with prior study dated November 18, 2019. FINDINGS: Stable elevation of the left hemidiaphragm. Stable mild increased linear markings at the left lung base suggestive of scarring. Stable blunting of the left costophrenic angle. Normal size heart. Normal mediastinum and елена. Normal visualized pulmonary arteries. There is atherosclerotic calcification of the aortic arch with tortuosity. There are diffuse degenerative changes of the visualized thoracic spine. Prior vertebroplasty of a mid dorsal vertebrae. Normal visualized ribs, clavicles, and shoulders. There is no demonstrated abnormality of the visualized soft tissue structures of the upper abdomen. RAD/Chest 1 View (Portable) IMPRESSION: Stable examination. Elevation of the left hemidiaphragm with findings suggest mild scarring at the left lung base. Electronically Signed: Klever Law MD at 14:11 EDT ,
[2024-06-30] MEDS: Labetalol (Prefilled) 20 MG/4 ML 10 MG IV (13:31)
[2024-06-30 13:36] LABS: Anion Gap 9 (5-15); BUN 10 mg/dL (7-18); BUN/Creat Ratio 13.7 RATIO (10-20); Calcium,Total 9.1 mg/dL (8.5-10.1); Chloride 93 mmol/L (98-107); Creatinine, Serum 0.73 mg/dL (0.55-1.02); EST Glomerular Filtration Rate 82 mL/min (>60); Est Glom Filt Rate - Afr Amer 99 mL/min (>60); Estimated Creatinine Clearance 46.81 ml/min; Glucose 137 mg/dL (74-106); Potassium 3.6 mmol/L (3.5-5.1); Sodium Level 132 mmol/L (136-145); Troponin-I HS (w/2H Reflex) 6 pg/mL (3.0-54.0)
--- NOTE | 2024-06-30 13:36 | ED.VIS.CHEST ---
HPI History of Present Illness Chief Complaint: Chest Pain Narrative Narrative: Chief complaint and HPI: Hypertension. 78-year-old female with history of HTN, recent compression fractures presents for evaluation of hypertension and resolved chest pain. Patient states on Sunday she received a steroid injection into her back and since then has been having elevated blood pressure. She was seen in our emergency department for this on Sunday in which she had an unremarkable cardiac workup and was discharged home on clonidine TID for blood pressure greater than 175. Patient states she woke up this morning with chest pain. She states she checked her blood pressure and it was in the 200s. Patient states she took a clonidine without improvement which is why she presents here today. Chest pain has since resolved. She states she had some shortness of breath at that time but that is resolved as well. She denies any headache, lightheadedness, vision changes. Denies any fever, chills, abdominal pain, nausea, vomiting. Review of systems: See HPI Medications: As listed on the chart Allergies: As listed on the chart PFSH: Per chart Vital signs: As listed on the chart. Reviewed. Physical exam: Gen: A&O x3, NAD Head: Normocephalic, atraumatic Eyes: No sclera icterus, conjunctiva clear ENT: Moist mucous membranes Neck: Trachea midline, No JVD CV: RRR, no murmurs, no peripheral edema Resp: Lungs CTA BL, no w/r/c GI: Abd soft, non-distended, non-tender, no r/r/g Musc: Full ROM, no deformity Skin: Warm, dry Neuro: Alert, oriented, grossly intact, sensation intact Psych: Cooperative, appropriate mood and affect [facility] Medical History Depression Hyponatremia Pneumonia Hypertension Headache Cataracts, bilateral Cancer UTI (urinary tract infection) Bone fracture Back problem Arthritis Anemia Seasonal allergies GERD (gastroesophageal reflux disease) Myocardial infarct CAD (coronary artery disease) Pulmonary nodule Bronchitis Old myocardial infarction COPD (chronic obstructive pulmonary disease) Hyperlipidemia History of non-ST elevation myocardial infarction (NSTEMI) [place]ubo cardiomyopathy Atherosclerotic heart disease of [place] coronary artery without angina pectoris Tongue cancer History of coronary vasospasm Osteoporosis Benign essential HTN Asthma Home Medications ?Medication ?Instructions ?Recorded ?Last Taken ?Type albuterol sulfate 90 mcg/actuation 1 - 2 puff inhalation Q6H PRN PRN 05/30/17 Unknown Rx aerosol inhaler Wheezing ##1 sucralfate 1 gram tablet 1 g PO QHS PRN reflux 10/29/17 07/15/19 History nitroglycerin 0.4 mg sublingual 0.4 mg sublingual Q5M PRN Chest 07/16/19 11/18/19 History tablet Pain multivitamin 1 tab PO DAILY 05/18/21 Unknown History lorazepam 0.5 mg tablet 0.5 mg PO DAILY PRN PRN Anxiety 08/09/21 Unknown History calcium 500 mg-vitamin D3 1,000 3 tab PO QPM supplement 05/31/22 Unknown History unit-vitamin K 40 mcg chewable tablet paroxetine HCl 10 mg tablet 5 mg PO DAILY 05/31/22 Unknown History pravastatin 80 mg tablet See Rx Instructions .Route 07/31/23 Unknown Rx .COMPLEX #90 tabs amlodipine 5 mg tablet 5 mg PO DAILY #90 tabs 10/16/23 Unknown Rx pantoprazole 40 mg tablet,delayed 40 mg PO DAILY for acid reflux #90 12/05/23 Unknown Rx release TABLETS metoprolol succinate 50 mg 50 mg PO DAILY blood 02/13/24 Unknown Rx tablet,extended release 24 hr pressure/heart #90 tabs meloxicam 15 mg tablet 15 mg PO QHS 06/21/24 Unknown History acetaminophen 500 mg tablet 1,000 mg (2 x 500 mg) PO Q8 #0 tabs 06/22/24 Unknown Rx lidocaine 5 % topical patch 2 patch topical DAILY #15 ea 06/22/24 Unknown Rx oxycodone 5 mg tablet 5 mg PO Q6H PRN PRN Pain Score 06/22/24 Unknown Rx 6-10 7 days #28 tabs clonidine HCl 0.1 mg tablet 0.1 mg PO TID PRN SBP > 175 #20 06/27/24 Unknown Rx tabs Allergy/AdvReac Type Severity Reaction Status Date / Time umeclidinium (From Anoro AdvReac Intermediate heart Verified 06/30/24 12:14 Ellipta) racing, high bp, anxious vilanterol (From Anoro AdvReac Intermediate heart Verified 06/30/24 12:14 Ellipta) racing, high bp, anxious codeine AdvReac HEART RACES Verified 06/30/24 12:14 Corticosteroids AdvReac high blood Verified 06/30/24 12:14 (Glucocorticoids) pressure indomethacin (From Indocin) AdvReac Abd Verified 06/30/24 12:14 cramps/diarrhea indomethacin sodium (From AdvReac Abd Verified 06/30/24 12:14 Indocin) cramps/diarrhea levofloxacin (From Levaquin) AdvReac INCREASED Verified 06/30/24 12:14 BLOOD PRESSURE nitrofurantoin (From AdvReac Nausea/Vom/ Verified 06/30/24 12:14 Macrobid) Diarrhea propoxyphene napsylate (From AdvReac PASSES OUT Verified 06/30/24 12:14 Darvocet-N 100) Family History Father , age 92, had IA age 35 Myocardial infarction, Onset Age: 35 Arthritis Mother Asthma Respiratory disease Grandmother Asthma Emphysema lung Respiratory disease Other Heart disease Hypertension Surgical History (Updated 06/30/24 @ 00:02 by Josiah Estes) History of appendectomy H/O kyphoplasty H/O: hysterectomy History of tonsillectomy S/P pericardial window creation History of cataract surgery History of pericardiectomy History of left heart catheterization Social History Smoking Status: Never smoker alcohol intake: never substance use type: does not use what type of physical activity do you participate in: walking frequency: 5-6 times per week EXAM Physical Exam Const Vital Signs: 06/30/24 12:12 06/30/24 12:13 06/30/24 13:08 Temperature 98 F Temperature Source Oral Pulse Rate 115 H Respiratory Rate 18 Respiratory Effort Normal Non-Labored Blood Pressure 202/104 H Blood Pressure Mean 136 Pulse Ox 97 Oxygen Delivery Method Room Air Room Air 06/30/24 13:12 06/30/24 14:00 Temperature Temperature Source Pulse Rate 75 69 Respiratory Rate 23 H 14 Respiratory Effort Blood Pressure 169/93 H 140/72 H Blood Pressure Mean 118 94 Pulse Ox 93 96 Oxygen Delivery Method Room Air Room Air MDM MDM MDM Narrative Medical decision making narrative: 78-year-old female presents for evaluation of hypertension. Patient has been having issues with her blood pressure since she received a steroid injection last week. Patient was seen in our emergency department for similar complaint. It was reviewed. On presentation, patient is currently asymptomatic other than her blood pressure being in the 200s. She is tachycardic but states she is anxious. Labetalol ordered. Cardiac workup ordered. Differential diagnosis includes but is not limited to hypertensive urgency, hypertensive emergency, ACS. Blood pressure improved with labetalol along with heart rate. EKG and chest x-ray reviewed see below. CBC without leukocytosis or anemia. Patient does have new thrombocytosis of 492. BMP is at patient's baseline. BNP unremarkable. Troponin unremarkable. Delta troponin pending at this time. Patient is still currently asymptomatic. Given likely plan to discharge home, Dr. Mariscal patient's PCP was contacted and patient was discussed. Plan is to increase patient's Norvasc to 10 mg daily. Patient is to follow-up in their office. Patient is to call and make an appointment to be seen later this week. Patient was informed of this plan. At this point in time, troponin still pending. Patient signed out to oncoming physician. If troponin negative, patient will be discharged home with an increase in her Norvasc. EKG: Interpreted by me/EM phys EKG shows normal sinus rhythm with LVH. Patient has an age indeterminant infarct of the septal region. This is similar to her previous EKG on 06/20. Heart rate 79. Diagnostic: Interpreted by me/EM physician: Chest x-ray without pneumonia, effusion, pneumothorax, cardiomegaly Impression: 1. Hypertensive urgency 2. History of hypertension Lab Data Labs: Laboratory Results - last 24 hr 06/30/24 12:30 WBC 8.2 RBC 4.09 L Hgb 12.1 Hct 37.9 MCV 92.7 MCH 29.6 MCHC 31.9 L RDW Std Deviation 47.0 H RDW Coeff of Dianne 14.0 Plt Count 492 H MPV 8.3 Immature Gran % (Auto) 0.500 Neut % (Auto) 73.9 H Lymph % (Auto) 17.6 L [place] % (Auto) 7.2 Eos % (Auto) 0.4 Baso % (Auto) 0.4 Absolute Neuts (auto) 6.1 Absolute Lymphs (auto) 1.44 Nucleated RBC % 0 Sodium 132 L Potassium 3.6 Chloride 93 L Carbon Dioxide 29.0 Anion Gap 9 BUN 10 Creatinine 0.73 Estim Creat Clear Calc 46.81 Est GFR (MDRD) Af Amer 99 Est GFR (MDRD) Non-Af 82 BUN/Creatinine Ratio 13.7 Glucose 137 H Calcium 9.1 Troponin I High Sens 6 B-Natriuretic Peptide 55.4 Radiography Diagnostic Testing: Clinical Impression(s) from Imaging Studies Chest X-Ray 06/30/24 13:20 IMPRESSION: Stable examination. Elevation of the left hemidiaphragm with findings suggest mild scarring at the left lung base. Electronically Signed: Klever Law MD at 14:11 EDT , Discharge Plan Triage Chief Complaint: Chest Pain ED Provider: Christian Lucas Dx/Rx/DC Orders Prescriptions: No Action multivitamin Tablet 1 tab PO DAILY paroxetine HCl 10 mg tablet 5 mg PO DAILY amlodipine 5 mg tablet 5 mg PO DAILY Qty: 90 3RF lorazepam 0.5 mg tablet 0.5 mg PO DAILY PRN PRN (Reason: Anxiety) Patient Comments: anxiety calcium-vitamin D3-vitamin K 500 mg-1,000 unit-40 mcg tablet,chewable 3 tab PO QPM Patient Comments: supplement sucralfate 1 GM tablet 1 g PO QHS PRN (Reason: reflux) Patient Comments: stomach albuterol sulfate 1 INHALER inhaler 1 - 2 puff INHALATION Q6H PRN PRN (Reason: Wheezing) Qty: 1 0RF Patient Comments: asthma/copd nitroglycerin 0.4 MG tablet, sublingual 0.4 mg sublingual Q5M PRN (Reason: Chest Pain) meloxicam 15 mg tablet 15 mg PO QHS lidocaine 5 % Adhesive Patch,Medicated 2 patch topical DAILY Qty: 15 0RF Protocol: *Topical Application Instructions APPLICATION INSTRUCTIONS: Apply to mid back. oxycodone 5 mg Tablet 5 mg PO Q6H PRN PRN (Reason: Pain Score 6-10) 7 Days Qty: 28 0RF acetaminophen 500 mg Tablet 1,000 mg PO Q8 Qty: 0 0RF clonidine HCl 0.1 mg tablet 0.1 mg PO TID PRN (Reason: SBP > 175) Qty: 20 0RF pravastatin 80 mg tablet See Rx Instructions .ROUTE .COMPLEX Qty: 90 3RF Dose Instruction: TAKE 1 TABLET AT BEDTIME FOR CHOLESTEROL Rx Instructions: TAKE 1 TABLET AT BEDTIME FOR CHOLESTEROL pantoprazole 40 mg tablet,delayed release (DR/EC) 40 mg PO DAILY Qty: 90 3RF metoprolol succinate 50 mg tablet extended release 24 hr 50 mg PO DAILY Qty: 90 3RF Primary Care Provider: Malcolm Mariscal Referrals: Malcolm Mariscal MD [Primary Care Provider] - Print Language: Romanian
[2024-06-30 13:37] LABS: Absolute Lymphocyte Count 1.44 X10^3/uL (0.83-4.51); Absolute Neutrophil Count 6.1 X10^3/uL (2.0-7.7); Basophil# 0.03 X10^3/uL; Basophil% 0.4 % (0-1); Eosinophil# 0.03 X10^3/uL; Eosinophils% 0.4 % (0-5); Hematocrit 37.9 % (37-47); Hemoglobin 12.1 g/dL (12.0-15.0); Lymphocyte # 1.44 X10^3/ul (0.83-4.51); Lymphocyte % 17.6 % (19-41); Mean Corp Hgb Conc 31.9 g/dL (32-36); Mean Corpuscular Hgb 29.6 pg (27.0-32.0); Mean Corpuscular Volume 92.7 fL (81-99); Mean Platelet Vol. 8.3 fl (6.2-12.0); Monocyte# 0.59 X10^3/uL; Monocyte% 7.2 % (0-10); NRBC Flagged by Analyzer 0 % (0-5); Neutrophil # 6.05 X10^3/uL (2.7-7.7); Neutrophil % 73.9 % (47-70); Platelet Count 492 K/mm3 (150-450); Red Blood Count 4.09 M/mm3 (4.2-5.4); White Blood Count 8.2 K/mm3 (4.4-11.0)
[2024-06-30 13:54] LABS: BNP,B-Type NATRIURETIC PEPTIDE 55.4 pg/mL (0-100)
[2024-06-30 15:14] LABS: Reflex Troponin-HS? (from REC) Y
[2024-06-30 16:02] LABS: Troponin-I HS 8 pg/mL (3.0-54.0)
== END 2024-06-30 17:34 | disposition home or self-care (01) ==
PROVIDERS: Surgery; Emergency Provider Emergency Medicine; PCP Family Medicine; Visit Provider Emergency Medicine
DX: I10 Essential (primary) hypertension (principal); J44.9 Chronic obstructive pulmonary disease, unspecified; I25.10 Atherosclerotic heart disease of native coronary artery without angina pectoris; E78.5 Hyperlipidemia, unspecified; Z90.710 Acquired absence of both cervix and uterus; I25.2 Old myocardial infarction; Z79.899 Other long term (current) drug therapy; F32.A Depression, unspecified; K21.9 Gastro-esophageal reflux disease without esophagitis; I16.0 Hypertensive urgency
CPT/HCPCS: 71045; 80048; 83880; 84484; 85025; 93005; 96374; 99284; A4216

== ENCOUNTER 2024-07-14 11:30 | Outpatient (RCR) | payer MEDICARE, OTHER, SELFPAY ==
--- NOTE | 2024-06-12 11:12 | HP.PTEVAL_ITS ---
Patient's Visit Information Visit Information Visit Information: ALEXY DOMINGUEZ is a 78 year old F referred to Physical Therapy by Dr. Malcolm Mariscal MD with a diagnosis of HIP PAIN. Date of Evaluation: 05/20/24 Physical Therapist: Eva Pablo PT, Cert MDT Visit Plan Frequency: 2x /Week Duration: 4-6 Weeks Plan: 1. US to R hip at 1.5 w/cm2 x 8 min x 6 visits 2. Increase R hip range of motion 3. Improve strength of R LE in both open and closed chain. 4. Progress gait with LRD as patient will allow (Has refused AD in past). Re- integrate functional mobility with stairs and transfers as tolerated. Subjective Subjective: Work/Leisure: RETIRED. HOBBIES: PUZZLES AND roopa. ACTIVE AROUND THE HOUSE AND AT [employer]. Present symptoms: R HIP AND GROIN PAIN. NERVE PAIN, NUMBESS AND TINGLING THAT SHOOTS ALL THE WAY DOWN LEG TO TOES. SHAHEED LOW BACK PAIN. Present since: ABOUT 5 WKS AGO Pain Scale: WORST 9/10, LEAST 3/10 Currently: 5/10 Is it getting better, worse or staying the same: GETTING WORSE Commenced as a result of: NO APPARENT REASON. STARTED IN THE MIDDLE OF THE NIGHT WHILE IN BED - WOKE HER UP. Symptoms at onset: R HIP PAIN Worse: BEING STILL, SITTING, LYING DOWN, WALKING, STANDING, BENDING OVER TO PICK THINGS UP, STAIRS, LIFTING Better: NOTHING HELPS - TRIED MELOXICAM, STEROIDS, TYLONOL - NOTHING HELPS. GETTING UP AND MOVING IS THE ONLY THIING SHE CAN DO. Disturbed sleep: YES Previous history/Previous treatment: OSTEPOROSIS. BROKE BACK TURNING OVER IN BED AND HAD TO HAVE SURGERY (KYPHOPLASTY) IN 2008, BROKE HIP FROM FALL 2014 REPAIRED WITH MARIA T, ANOTHER FALL 2013 3 PELVIC FX'S - NO SX. FX TAILBONE 2022 - NO SX. Treatment this episode: MEDICATIONS. PT REFERRAL ONLY Coughing/sneezing/straining: NE ON PAIN. Gait: 2022 WAS LAST FALL. NOT USING ANY AD'S. DOES GET LIGHT HEADED AND LOSE HER BALANCE. HAS ASSISTIVE DEVICES - CANES AND WALKERS BUT STATES SHE IS suborn AND DOESN'T USE THEM. Bowel or Bladder Dysfunction: NO Unexplained weight loss: NO Imaging: RECENT R HIP X-RAY SHOWING MILD ARTHRITIS PER PATIENT REPORT. PMH/Recent major surgery: OSTEOPROSIS. ACID REFLUX. COPD. ANXIETY. HTN. OTHER: PATIENT REPORTS DR. DUMONT ALREADY TALKED ABOUT HIP SURGERY AND SAID IT IS BEST TO HAVE IT DONE NOW IF SHE HAS TO HAVE IT. STATES HE SAID SHE MIGHT ALSO NEED A CORTISONE SHOT BUT RECOMMENDS TRYING THERAPY FIRST. Pain LB: Pain Intensity (Out of 10): 9 R hip: Pain Intensity (Out of 10): 9 Comment: wraps around into thigh down to ankle. Objective Objective: Sitting/Standing Posture: INCREASED KYPHOSIS, SCOLIOSIS Other Observations: THIS PATIENT AMBULATES INDEP'LY INTO PT WITHOUT ANY AD'S WITH ANTALGIC GAIT PATTERN, DECREASED CADANCE AND DECREASED WT BEARING TIME R LE. UNABLE TO TRANSFER SIT TO STAND WITHOUT UE ASSIST. UNABLE TO SLS R LE. Sensory deficit: HSAHEED LE LIGHT TOUCH SENSATION GROSSLY INTACT AND SYMMETRICAL ROM deficit: SHAHEED HIP FLEX, HS AND CALF TIGHTNESS. SHAHEED HIP ER TIGHTNESS R > L. PAIN WITH R HIP IR AND ER ROM TESTING EVEN WITH GENTLE TESTING. Motor deficit: Left LE strength hip flexion 4/5, abduction 4/5, adduction 4/5, extension 4/5, IR 4/5, ER 4/5, knee flexion 5/5, knee extension 5/5, ankle DF 5/5, ankle PF 5/5 Right LE strength hip flexion 4-/5, abduction 4-/5, adduction 4-/5, extension 4- /5, IR 3/5, ER 3/5, knee flexion 4/5, knee extension 4/5, ankle DF 5/5, ankle PF 5/5 Reflexes: UNABLE TO ELICIT SHAHEED LE DTR'S. Dural Signs: NEGATIVE SHAHEED LE DTR'S. Lumbar mvmt loss: flex - MOD - INCREASES LPB - NW ext - ALESSIA - INCREASES LBP - NW R SG - ALESSIA - INCREASES R LB AND R HIP - W L SG - ALESSIA - INCREASES R LBP, R HIP AND R GROIN - NW Core strength: POOR Balance/Special Test Scores Lower Extremity Functional Score: 35 Goals Goal 1:: Pt. will improve left LE strength to 4/5 for all motions in order to improve stability and balance. Goal Time Frame: 4-6 Weeks Goal 2:: Pt. will be able to walk at least 10 minutes without AD and no rest break in order to improve endurance. Goal Time Frame: 4-6 Weeks Goal 3:: Pt. will improve single leg stance > 15 secs in order to improve stability and balance. Goal Time Frame: 4-6 Weeks Goal 4:: Pt. will be able to complete at least 8 sit to stands in 30 secs with arm assist in order to improve ADL's. Goal Time Frame: 4-6 Weeks Goal 5:: Pt. will be able to complete LE dressing with no pain or difficulty. Goal Time Frame: 4-6 Weeks Goal 6:: Pt. will improve LEFS score < 30% disability in order to improve mobility and ADL's. Goal Time Frame: 4-6 Weeks Rehabilitation Potential Physical Therapy Diagnosis: Decreased right LE strength, difficulty walking, balance impairment, and pain Rehabilitation Potential: Fair Anticipated Interventions Patient/Client Instruction: Educate patient on: Condition, Plan of Care and Risk Factors For the Purpose of:: To improve self management Therapeutic Exercise to Include: Strength training, Endurance training, Balance training, Postural training, Flexibilty training, Gait and locomotor training, In an aquatic setting, Passive ROM and Active ROM Comment: consider aquatic therapy For the Purpose of:: To decrease pain, To decrease swelling/inflammation, To increase ROM, To improve muscle performance and motor function, To improve ability to perform ADL's, To increase tolerance to activity/condition/position, To improve performance and independence with ADL's, To improve ability of physical actions for home/community/work/leisure, To improve gait and locomotor functions, To increase flexibility/ROM, To improve endurance and To improve self management Cryotherapy (ice pack, ice massage): Yes Thermo therapy (hot pack): Yes Ultrasound (thermal/non thermal): Yes For the Purpose of:: To decrease pain, To decrease swelling/inflammation and To improve nutrient delivery to tissue Text: Thank you for the opportunity to evaluate your patient. For Medicare and Medicare HMO plans, please review the plan of care and approve it. It will need to be FAXED BACK to us at [phone] for Medicare purposes. For Medicare only, by signing this I certify the plan of care. Please let me know if there are questions or concerns regarding this plan of care. Physician Signature: Date:
--- NOTE | 2024-06-12 15:38 | HP.PTREVAL ---
Re-Evaluation Intro: Dr. Malcolm Mariscal MD, It has been my pleasure to treat ALEXY DOMINGUEZ over the last 7 visits for HIP PAIN. Please see the progress note below for an update on the physical therapy plan of care! Subjective Subjective: PATIENT REPORTS SHE HAD HER MRI YESTERDAY AND SHE IS AWAITING THE RESULTS. PATIENT REPORTS DECREASED PAIN WITH US TREATMENTS IN PHYSICAL THERAPY AND STATES SHE ONLY DOES THE EX'S THAT DON'T HURT. Objective Objective/Function: THIS PATIENT AMBULATES INDEP'LY INTO PT TODAY WITHOUT ANY AD'S WITH SLOW ANTALGIC GAIT PATTERN WITH C/O 5/10 R LB AND R HIP PAIN. SHE WALKS WITH DECREASED CADANCE AND SHORT SHAHEED STRIDE LENGTH. NO LOB BUT GAIT IS NOT STEADY. SHE IS ABLE TO TRANSFER INDEP'LY FROM SIT TO STAND AND REVERSE BUT SHE IS SHAHEED'LY UE DEP TO DO SO. THIS PT CONTINUES TO ENCOURAGE USE OF AD'S BUT SHE REMAINS RELUCTANT. SHE REPORTS SHE MAY NEED BACK SURGERY OR INJECTIONS AND WOULD LIKE TO HOLD PT AND THIS PT AGREES. NO FURTHER TESTING TODAY. PATIENT IS AWAITING MRI RESULTS AND PLANS TO CONTACT HER PHYSICIAN FOR THE RESULTS. SEE LEFS SCORE OF 20 TODAY COMPARED TO 35 AT INITIAL EVAL. Plan Plan Plan: HOLD PT. Balance/Gait/Functional tests Balance/Special Test Scores Lower Extremity Functional Score: 20 Goals Goals Goal 1:: Pt. will improve left LE strength to 4/5 for all motions in order to improve stability and balance. Goal Time Frame: 4-6 Weeks Goal Progress: NT Goal 2:: Pt. will be able to walk at least 10 minutes without AD and no rest break in order to improve endurance. Goal Time Frame: 4-6 Weeks Goal Progress: NT Goal 3:: Pt. will improve single leg stance > 15 secs in order to improve stability and balance. Goal Time Frame: 4-6 Weeks Goal Progress: NT Goal 4:: Pt. will be able to complete at least 8 sit to stands in 30 secs with arm assist in order to improve ADL's. Goal Time Frame: 4-6 Weeks Goal Progress: NT Goal 5:: Pt. will be able to complete LE dressing with no pain or difficulty. Goal Time Frame: 4-6 Weeks Goal Progress: Not Progressing Goal 6:: Pt. will improve LEFS score < 30% disability in order to improve mobility and ADL's. Goal Time Frame: 4-6 Weeks Goal Progress: Not Progressing Anticipated Interventions Anticipated Interventions Patient/Client Instruction: Educate patient on: Condition, Plan of Care and Risk Factors For the Purpose of:: To improve self management Therapeutic Exercise to Include: Strength training, Endurance training, Balance training, Postural training, Flexibilty training, Gait and locomotor training, In an aquatic setting, Passive ROM and Active ROM Comment: consider aquatic therapy For the Purpose of:: To decrease pain, To decrease swelling/inflammation, To increase ROM, To improve muscle performance and motor function, To improve ability to perform ADL's, To increase tolerance to activity/condition/position, To improve performance and independence with ADL's, To improve ability of physical actions for home/community/work/leisure, To improve gait and locomotor functions, To increase flexibility/ROM, To improve endurance and To improve self management Cryotherapy (ice pack, ice massage): Yes Thermo therapy (hot pack): Yes Ultrasound (thermal/non thermal): Yes For the Purpose of:: To decrease pain, To decrease swelling/inflammation and To improve nutrient delivery to tissue Re-Evaluation Ending Re-evaluation ending: Please do not hesitate to contact me at [phone] by phone or if you have questions or concerns regarding this new plan of care! Sincerely, Eva Pablo, PT, Cert MDT
== END 2024-07-14 19:00 | disposition home or self-care (01) ==
LOC: PT 11:30
PROVIDERS: PCP Family Medicine; Referring Provider Family Medicine; Visit Provider Family Medicine
DX: M54.9 Dorsalgia, unspecified (principal); M25.559 Pain in unspecified hip; R26.9 Unspecified abnormalities of gait and mobility
CPT/HCPCS: 97035; 97110; 97162; 97530

== ENCOUNTER → 2024-10-20 | Outpatient (CLI) | payer MEDICARE, OTHER, SELFPAY | END | disposition home or self-care (01) | LOC: LABSPEC 13:42 | PROVIDERS: PCP Family Medicine; Referring Provider Family Medicine; Visit Provider Family Medicine | DX: R35.0 Frequency of micturition (principal) | CPT/HCPCS: 87077; 87086; 87088; 87186 ==

== ENCOUNTER → 2024-10-28 | Outpatient (CLI) | payer MEDICARE, OTHER, SELFPAY | END | disposition home or self-care (01) | LOC: LABSPEC 10:45 | PROVIDERS: PCP Family Medicine | DX: N92.1 Excessive and frequent menstruation with irregular cycle (principal) | CPT/HCPCS: 87493; 87506 ==

== ENCOUNTER → 2024-10-30 | Outpatient (CLI) | payer MEDICARE, OTHER, SELFPAY ==
[2024-10-30 15:29] LABS: Absolute Lymphocyte Count 1.13 X10^3/uL (0.83-4.51); Absolute Neutrophil Count 3.4 X10^3/uL (2.0-7.7); Basophil# 0.03 X10^3/uL; Basophil% 0.6 % (0-1); Eosinophil# 0.04 X10^3/uL; Eosinophils% 0.8 % (0-5); Hematocrit 30.2 % (37-47); Hemoglobin 11.1 g/dL (12.0-15.0); Lymphocyte # 1.13 X10^3/ul (0.83-4.51); Lymphocyte % 22.4 % (19-41); Mean Corp Hgb Conc 36.8 g/dL (32-36); Mean Corpuscular Volume 98.1 fL (81-99); Mean Platelet Vol. 8.2 fl (6.2-12.0); Monocyte# 0.47 X10^3/uL; Monocyte% 9.3 % (0-10); NRBC Flagged by Analyzer 0 % (0-5); Neutrophil # 3.36 X10^3/uL (2.7-7.7); Neutrophil % 66.5 % (47-70); Platelet Count 382 K/mm3 (150-450); RBC Distribution Width CV 14.2 % (11.6-14.6); RBC Distribution Width SD 48.5 fl (35.1-43.9); Red Blood Count 3.08 M/mm3 (4.2-5.4); White Blood Count 5.1 K/mm3 (4.4-11.0)
== END | disposition home or self-care (01) ==
LOC: MFPLAB 11:30
PROVIDERS: PCP Family Medicine; Referring Provider Family Medicine; Visit Provider Family Medicine
DX: I10 Essential (primary) hypertension (principal)
CPT/HCPCS: 36415; 85025

== ENCOUNTER → 2025-01-06 | Outpatient (CLI) | payer MEDICARE, OTHER, SELFPAY ==
--- NOTE | 2025-01-06 15:22 | RAD_ITS ---
PROCEDURE: LUMBAR SPINE 2 OR 3 VIEWS 01/06/2025 REASON FOR EXAM: TRAUMA TECHNIQUE: 2 view(s) of the lumbar spine FINDINGS: The bones are osteoporotic. There is approximately 50% loss of height of the body of L1 mostly due to old compression fracture. Normal lumbar lordosis. There is mild rightward scoliosis with its angle tip at the level of L1. T12-L1: Normal disc height. Normal endplates. Normal alignment of the vertebrae. L1-2: Normal disc height. Normal endplates. Normal alignment of the vertebrae. L2-3: Normal disc height. Normal endplates. Normal alignment of the vertebrae. L3-4: Normal disc height. Normal endplates. Normal alignment of the vertebrae. L4-5: There is narrowing of the intervertebral disc with sclerosis of the vertebral endplates. L5-S1: Normal disc height. Normal endplates. Normal alignment of the vertebrae. The soft tissue structures are unremarkable. RAD/Lumbar Spine 2 or 3 Views IMPRESSION: Osteoporosis. Scoliosis. 50% loss of height of the body of L1 probably due to old compression fracture. Please correlate clinically. MRI would be helpful if clinically warranted. L4-L5 degenerative disc disease. Reading Location: [facility]
== END | disposition home or self-care (01) ==
LOC: RAD 15:18
PROVIDERS: PCP Family Medicine; Referring Provider Anesthesiology Pain Medicine; Visit Provider Anesthesiology Pain Medicine
DX: M81.0 Age-related osteoporosis without current pathological fracture (principal); M41.9 Scoliosis, unspecified; M51.369 Other intervertebral disc degeneration, lumbar region without mention of lumbar back pain or lower extremity pain
CPT/HCPCS: 72100

== ENCOUNTER → 2025-02-05 | Outpatient (CLI) | payer MEDICARE, OTHER, SELFPAY | END | disposition home or self-care (01) | LOC: LABSPEC 14:26 | PROVIDERS: PCP Family Medicine; Referring Provider Family Medicine; Visit Provider Family Medicine | DX: R35.0 Frequency of micturition (principal) | CPT/HCPCS: 87086; 87088; 87186 ==

== ENCOUNTER → 2025-02-09 | Outpatient (CLI) | payer MEDICARE, OTHER, SELFPAY ==
[2025-02-09 16:11] LABS: ALB/GLOB Ratio 1.6 RATIO (0.9-2.4); AST(SGOT) 36 U/L (<=31); Alanine Aminotransfer ALT/SGPT 35 U/L (<=34); Albumin, Serum 4.4 g/dL (3.4-4.8); Alkaline Phosphatase 134 U/L (35-104); Anion Gap 12 (5-15); BUN 9 mg/dL (4-19); BUN/Creat Ratio 9.5 RATIO (10-20); Calcium,Total 9.2 mg/dL (7.6-11.0); Carbon Dioxide 24.9 mmol/L (21.0-32.0); Chloride 89 mmol/L (98-108); Cholesterol 196 mg/dL (<=200); Creatinine, Serum 0.92 mg/dL (0.70-1.20); EST Glomerular Filtration Rate 63 (>60); Globulin 2.8 g/dL (2.2-4.2); Glucose 92 mg/dL (70-99); High Density Lipoprotein 66 mg/dL; Low Density Lipoprotein Calc. 110 mg/dL; Potassium 4.9 mmol/L (3.3-5.1); Protein, Total 7.3 g/dL (5.9-8.4); Sodium Level 126 mmol/L (133-145); Triglycerides 100 mg/dL; Very Low Density Lipoprotein 20 mg/dL (5-40); cholesterol:hdl ratio screen 2.98
== END | disposition home or self-care (01) ==
LOC: MFPLAB 12:08
PROVIDERS: PCP Family Medicine; Referring Provider Family Medicine; Visit Provider Family Medicine
DX: I10 Essential (primary) hypertension (principal)
CPT/HCPCS: 36415; 80053; 80061

== ENCOUNTER → 2025-02-17 | Outpatient (CLI) | payer MEDICARE, OTHER, SELFPAY ==
[2025-02-17 12:53] LABS: Anion Gap 11 (5-15); BUN 8 mg/dL (4-19); BUN/Creat Ratio 10.5 RATIO (10-20); Chloride 93 mmol/L (98-108); Creatinine, Serum 0.74 mg/dL (0.70-1.20); EST Glomerular Filtration Rate 83 (>60); Glucose 94 mg/dL (70-99); Potassium 4.4 mmol/L (3.3-5.1); Sodium Level 132 mmol/L (133-145)
== END | disposition home or self-care (01) ==
LOC: MFPLAB 11:18
PROVIDERS: PCP Family Medicine; Referring Provider Family Medicine; Visit Provider Family Medicine
DX: I10 Essential (primary) hypertension (principal)
CPT/HCPCS: 36415; 80048

== ENCOUNTER → 2025-04-08 | Outpatient (CLI) | payer MEDICARE, OTHER, SELFPAY ==
--- NOTE | 2025-04-08 13:15 | RAD_ITS ---
EXAM: XR Thoracic Spine, 2 Views CLINICAL INDICATION: SPONDYLOSIS WITHOUT MYELOPATHY OR RADICULOPATHY, THORACIC REGION TECHNIQUE: Frontal and lateral views of the thoracic spine. COMPARISON: No relevant prior studies available. FINDINGS: VERTEBRAE: S shaped scoliosis of the thoracolumbar spine. Moderate endplate degenerative changes and disc disease of the thoracic spine. Status post vertebroplasty of the mid thoracic vertebrae. No acute fracture. Normal alignment. DISC SPACES: See above. SOFT TISSUES: Unremarkable. RAD/Thoracic Spine 2 Views IMPRESSION: Degenerative changes as above. [facility]
== END | disposition home or self-care (01) ==
PROVIDERS: PCP Family Medicine; Referring Provider Anesthesiology Pain Medicine; Visit Provider Anesthesiology Pain Medicine
DX: M47.814 Spondylosis without myelopathy or radiculopathy, thoracic region (principal)
CPT/HCPCS: 72070

== ENCOUNTER → 2025-05-18 | Outpatient (CLI) | payer MEDICARE, OTHER, SELFPAY | END | disposition home or self-care (01) | LOC: LABSPEC 08-05 12:05 | PROVIDERS: PCP Family Medicine; Visit Provider Family Medicine | DX: N39.0 Urinary tract infection, site not specified (principal) | CPT/HCPCS: 87077; 87086; 87088; 87186 ==

== ENCOUNTER → 2025-07-24 | Outpatient (CLI) | payer MEDICARE, OTHER, SELFPAY ==
--- OUTSIDE RECORDS SUMMARY | 2025-07-24 16:32 | XMS RPT_ITS | CCD ---
Author Organization [facility] Care Team Providers Care Tailing Hand Name Role Phone Janet SWIFT, Rubi Villalba Unavailable Unavailable Nicolette Obando Unavailable Unavailable Kortney Cline Unavailable Unavailable Rd SWIFT, Barbie Champion Unavailable ANGELA LIZ Unavailable Unavailable MALCOLM GUZMAN Unavailable Unavailable HARVEY GILES Unavailable Unavailable Kortney Cline Unavailable Unavailable Saul SELLERS, Malcolm Rodriguez Unavailable Dr. Malcolm Guzman Primary Care Provider Dr. Malcolm Guzman Referring Provider Dr. Rossa Patel Attending Provider Roof PARTS COUNTER SPECIALIST, PARTS COUNTER SPECIALIST-C Durga Attending Provider Dr. Malcolm Guzman MD Primary Care Provider Dr. Malcolm Guzman MD Attending Provider Dr. Malcolm Guzman MD Referring Provider Valerie Heard Attending Provider Unavailable Valerie Heard Referring Provider Unavailable Dr. Karan Persaud MD Attending Provider Dr. Choco Wu MD Attending Provider Dr. Choco Wu MD Referring Provider Dr. Malcolm Guzman MD Primary Care Provider Dr. Malcolm Guzman MD Attending Provider Dr. Malcolm Guzman MD Referring Provider Dr. Malcolm Guzman MD Primary Care Provider Dr. Malcolm Guzman MD Attending Provider Dr. Malcolm Guzman MD Referring Provider Bryce, Choco Consulting Unavailable Guzman, Malcolm Primary Care Unavailable Guzman, Malcolm Referring Unavailable Guzman, Malcolm Attending Unavailable Guzman, Malcolm Primary Care Unavailable Guzman, Malcolm Referring Unavailable Guzman, Malcolm Attending Unavailable Basali, Choco Attending Unavailable Guzman, Malcolm Primary Care Unavailable Basali, Choco Referring Unavailable Guzman, Malcolm Attending Unavailable Guzman, Malcolm Referring Unavailable Guzman, Malcolm Primary Care Unavailable [place], Valerie Referring Unavailable [place], Valerie Attending Unavailable Guzman, Malcolm Primary Care Unavailable Guzman, Malcolm Primary Care Unavailable de Kaiser, Ian Consulting Unavailable de Kaiser, Ian Admitting Unavailable Saundra Medel Attending Unavailable Guzman, Malcolm Attending Unavailable Guzman, Malcolm Referring Unavailable Guzamn, Malcolm Primary Care Unavailable Guzman, Malcolm Attending Unavailable Guzman, Malcolm Primary Care Unavailable Guzman, Malcolm Referring Unavailable Guzman, Malcolm Attending Unavailable Guzman, Malcolm Referring Unavailable Guzman, Malcolm Primary Care Unavailable Guzman, Malcolm Primary Care Unavailable Guzman, Malcolm Attending Unavailable Guzman, Malcolm Attending Unavailable Guzman, Malcolm Primary Care Unavailable Guzman, Malcolm Referring Unavailable Guzman, Malcolm Primary Care Unavailable de Kaiser, Ian Attending Unavailable de Kaiser, Ian Consulting Unavailable de Kaiser, Ian Admitting Unavailable Guzman, Malcolm Primary Care Unavailable Tobi Martinez Attending Unavailable Guzman, Malcolm Primary Care Unavailable KumarStef Attending Unavailable Guzman, Malcolm Primary Care Unavailable Reodica, Blanco Attending Unavailable Guzman, Malcolm Primary Care Unavailable Basali, Choco Referring Unavailable Basali, Choco Attending Unavailable Saundra Medel Attending Unavailable Saundra Medel Consulting Unavailable Guzman, Malcolm Referring Unavailable Daily PARTS COUNTER SPECIALISTPricilla Attending Unavailable Guzman, Malcolm Primary Care Unavailable Guzman, Malcolm Referring Unavailable Guzman, Malcolm Primary Care Unavailable Hung, Avoca Attending Unavailable Allergies Allergy Classification Reported Allergen(s) Allergy Type Date of Onset Reaction(s) Facility (6 sources) acetaminophen / propoxyphene drug allergy 11-30-19 12 passed out [facility] Work Phone: (15 sources) codeine; Translations: [codeine] drug allergy 11-30-19 12 palpitaitions, HEART RACES [employer] Work Phone: (6 sources) indomethacin drug allergy 11-30-19 12 bleeding [facility] Work Phone: (6 sources) levoFLOXacin drug allergy 01-20-20 11 Heart racing [facility] Work Phone: (2 sources) Corticosteroids Propensity to adverse reactions 11-23-19 22 high blood pressure [facility] (8 sources) Indomethacin Drug Allergy 11-23-19 22 Abd cramps/diarrhe a [facility] (9 sources) Indomethacin; Translations: [indomethacin sodium] Drug Allergy 11-23-19 22 Abd cramps/diarrhe a [facility] (8 sources) levoFLOXacin Drug Allergy 11-23-19 22 INCREASED BLOOD PRESSURE [facility] (8 sources) Nitrofurantoin Drug Allergy 11-23-19 22 Nausea/Vom/Radha rrhea [facility] (9 sources) Propoxyphene; Translations: [propoxyphene napsylate] Drug Allergy 11-23-19 22 PASSES OUT [facility] (7 sources) umeclidinium Drug Allergy 10-03-19 23 heart racing, high bp, anxious [facility] (7 sources) vilanterol Drug Allergy 10-03-19 23 heart racing, high bp, anxious [facility] (6 sources) Glucocorticoid Receptor Agonists Propensity to adverse reactions 04-03-20 23 high blood pressure [facility] (1 source) Corticosteroids Drug allergy (disorder) 12-10-19 25 [facility] Rep[facility] (1 source) Indomethacin Drug Allergy 12-10-19 25 [facility] Rep[facility] (1 source) levoFLOXacin Drug Allergy 12-10-19 25 [facility] (1 source) Nitrofurantoin Drug Allergy 12-10-19 25 [facility] (1 source) umeclidinium Drug Allergy 12-10-19 25 [facility] (1 source) vilanterol Drug Allergy 12-10-19 25 [facility] Rep[facility] Medications Current Medications Medication Drug Class(es) Dates Sig (Normalized) Sig (Original) acetaminophen 500 mg oral tablet (20 sources) Start: 06-22-2024 take 2 tablets by mouth every eight hours Acetaminophen 500 mg Tablet Active 1000 mg PO EVERY 8 HOURS 0 0 June 22, 2024 12:00am Start: 02-06-2020 End: 06-30-2020 take 1 tablet by mouth every four hours as needed for pain Acetaminophen 500 MG tablet Discontinued 500 mg PO EVERY 4 HOURS NEEDED as needed for Pain Score 1-01/31February 06, 2020 12:00am June 30, 2020 11:39am Start: 07-16-2019 End: 02-06-2020 take 1 tablet by mouth at bedtime as needed for pain Acetaminophen 650 MG tablet extended release Discontinued 650 mg PO AT BEDTIME NEEDED as needed for Pain Score 1-07/03July 16, 2019 12:00am February 06, 2020 8:51am Albuterol (8 sources) beta2-Adrenergic Agonist Start: 05-30-2017 Albut eloise Sulfate 1 INHALER inhaler Active 1 - 2 NMA INHALATION EVERY 6 HOURS NEEDED as needed for Wheezing 1 May 30, 2017 12:00am Start: 05-30-2017 Albuterol Sulf ate 1 INHALER inhaler Active 1 - 2 NMA INHALATION EVERY 6 HOURS NEEDED as needed for Wheezing May 30, 2017 12:00am Start: 05-30-2017 take 1 puff(s) by in halation every six hours as needed Albuterol Sulfate Active 1 - 2 PUFF INHALATION EVERY 6 HOURS NEEDED May 29, 2017 11:00pm amLODIPine 5 mg oral tablet (20 sources) Dihydropyridine Calcium Channel Rasheeda Start: 12-09-2024 take 1 tablet by mouth once daily Amlodipine 5 mg tablet Active 5 mg PO DAILY 90 3 December 09, 2024 11:09am Start: 06-30-2024 End: 12-09-2024 take 1 tablet by mouth once daily Amlodipine (Norvasc) 10 mg tablet Discontinued 10 mg PO DAILY 30 0 June 30, 2024 12:00am December 09, 2024 11:10am Start: 09-04-2023 End: 09-04-2023 take 5 mg by mouth once daily Amlodipine 10 mg tablet Discontinued 5 mg PO DAILY September 04, 2023 12:13pm September 04, 2023 12:14pm Start: 09-04-2023 End: 09-04-2023 take 1 tablet by mouth once daily Amlodipine 10 mg tablet Discontinued 10 mg PO DAILY September 04, 2023 1:00am September 04, 2023 12:13pm Start: 10-28-2012 take 1 tablet by jarad twice daily AMLODIPINE BESYLATE 5 MG TABS One tablet by mouth twice daily AMLODIPINE BESYLATE [id number] More Queen RN Start: 08-27-2012 take 2 tablets by mo [facility] once daily AMLODIPINE BESYLATE 5 MG TABS Two tablets by mouth daily AMLODIPINE BESYLATE [id number] More Queen RN Start: 06-03-2012 End: 07-15-2024 take 1 tablet by mouth once daily Amlodipine 5 mg tablet Discontinued 5 mg PO DAILY 90 3 January 29, 2023 9:35am September 04, 2023 11:39am Start: 11-30-2011 take 1 tablet by [facility] once daily AMLODIPINE BESYLATE 10 MG TABS One tablet by mouth daily AMLODIPINE BESYLATE [id number] Malcolm Hughes MD Start: 01-19-2011 End: 11-30-2011 take 1 tablet by mouth once daily AMLODIPINE BESYLATE 5 MG TABS One tablet by mouth daily AMLODIPINE BESYLATE [id number] Malcolm Hughes MD calcium carbonate 1250 mg / cholecalciferol 1000 unt / vitamin k 0.4 mg chewable tablet (20 sources) Vitamin D Start: 05-31-2022 Calcium-Vitami n D3-Vitamin K 500 mg-1,000 unit-40 mcg tablet,chewable Active 3 {tbl} PO EVERY EVENING May 31, 2022 11:41am supplement Start: 05-31-2022 take 3 tablets by [facility] once daily in the evening Calcium-Vitamin D3-Vitamin K Active 3 TABLET PO EVERY EVENING May 31, 2022 10:41am Start: 12-08-2014 End: 05-31-2022 Calcium-Vitamin D3-Vitamin K 500 mg-1,000 unit-40 mcg tablet,chewable Discontinued 3 {tbl} PO AT BEDTIME November 22, 2021 12:31pm May 31, 2022 11:43am supplement Start: 12-08-2014 End: 05-31-2022 take 3 tablets by mouth at bedtime Calcium-Vitamin D3-Vitamin K Discontinued 3 TABLET PO AT BEDTIME November 22, 2021 11:31am May 31, 2022 10:43am cloNIDine hydrochloride 0.1 mg oral tablet (17 sources) Central alpha-2 Adrenergic Agonist Start: 06-27-2024 Clonidine Hcl 0.1 mg tablet Active 0.1 mg PO THREE TIMES A DAY as needed for SBP > 175 20 0 June 27, 2024 5:24pm Start: 10-07-2012 End: 10-28-2012 take 1 tablet by mouth once daily CATAPRES 0.1 MG TABS One tablet by mouth daily CLONIDINE HCL [id number] More Queen RN lidocaine 0.05 mg/mg medicated patch (10 sources) Antiarrhythmic, Amide Local Anesthetic Start: 12-09-2024 Lidocaine 5 % adhesi ve patch,medicated Active 2 NMA TOPICAL DAILY as needed December 09, 2024 10:57am Please contact the information source for Protocol details. Start: 06-22-2024 End: 12-09-2024 Lidocaine 5 % Adhesive Patch ,Medicated Discontinued 2 NMA TOPICAL DAILY 15 0 June 22, 2024 12:00am December 09, 2024 10:58am Please contact the information source for Protocol details. losartan potassium 50 mg oral tablet (20 sources) Angiotensin 2 Receptor Rasheeda Start: 12-09-2024 take 1 tablet by mouth once daily Losartan 50 mg tablet Active 50 mg PO daily 90 4 December 09, 2024 12:00am Start: 12-22-2015 End: 05-03-2016 take 1 tablet by mouth once daily as needed LOSARTAN POTASSIUM 25 MG TABS One tablet by mouth daily as needed for systolic BP > 140 LOSARTAN POTASSIUM [id number] Malcolm Hughes MD meloxicam 15 mg oral tablet (5 sources) Nonsteroidal Anti-inflammatory Drug Start: 06-21-2024 take 1 tablet by mouth at bedtime Meloxicam 15 mg tablet Active 15 mg PO AT BEDTIME June 21, 2024 12:00am Multivitamin preparation (3 sources) Start: 05-18-2021 take 1 tablet by mouth once daily Multivitamin Active 1 TABLET PO DAILY May 18, 2021 2:04pm Start: 05-18-2021 take 1 tablet by jarad th once daily Multivitamin Active 1 TABLET PO DAILY May 17, 2021 11:00pm Start: 05-18-2021 take 1 tablet by jarad th once daily Multivitamin Active 1 TABLET PO DAILY May 18, 2021 12:00am Multivitamin tablet (5 sources) Start: 05-18-2021 Multivitamin t ablet Active 1 {tbl} PO DAILY May 18, 2021 12:00am nitroglycerin 0.4 mg sublingual tablet (20 sources) Nitrate Vasodilator Start: 07-16-2019 Nitroglyce rin 0.4 MG tablet, sublingual Active 0.4 mg SL Q5M as needed for Chest Pain July 16, 2019 12:00am Start: 07-16-2019 Nitroglycerin Active 0.4 MG SL Q5M July 15, 2019 11:00pm Start: 06-03-2012 NITROLINGUAL 0 .4 MG/SPRAY SOLN 1 spray under tongue every 5min up to 3 X NITROGLYCERIN [id number] Malcolm Hughes MD Start: 06-03-2012 NITROLINGUAL 0 .4 MG/SPRAY SOLN 1 spray under tongue every 5min up to 3 X NITROGLYCERIN [id number] Malcolm Hughes MD Start: 06-03-2012 NITROLINGUAL 0 .4 MG/SPRAY SOLN 1 spray under tongue every 5min up to 3 X NITROGLYCERIN [id number] Malcolm Hughes MD Start: 11-30-2011 NITROLINGUAL 0 .4 MG/SPRAY SOLN 1 spray under tongue every 5min up to 3 X NITROGLYCERIN [id number] Malcolm Hughes MD Start: 11-30-2011 NITROLINGUAL 0 .4 MG/SPRAY SOLN 1 spray under tongue every 5min up to 3 X NITROGLYCERIN [id number] Malcolm Hughes MD Start: 01-19-2011 NITROLINGUAL 0 .4 MG/SPRAY SOLN 1 spray under tongue every 5min up to 3 X NITROGLYCERIN [id number] Aleja Harvey Start: 01-19-2011 NITROLINGUAL 0 .4 MG/SPRAY SOLN 1 spray under tongue every 5min up to 3 X NITROGLYCERIN [id number] Malcolm Hughes MD Start: 01-19-2011 NITROLINGUAL 0 .4 MG/SPRAY SOLN 1 spray under tongue every 5min up to 3 X NITROGLYCERIN [id number] Aleja Harvey pantoprazole 40 mg delayed release oral tablet (20 sources) Proton Pump Inhibitor Start: 10-08-2024 take 1 tablet by mouth once daily Pantoprazole 40 mg tablet,delayed release (DR/EC) Active 40 mg PO DAILY 90 3 October 08, 2024 3:14pm for acid reflux Start: 10-29-2017 End: 12-05-2023 Pantoprazole 40 mg tablet,de layed release (DR/EC) Discontinued 0 .ROUTE .COMPLEX 90 February 01, 2023 4:34pm December 05, 2023 9:11am TAKE 1 TABLET DAILY FOR REFLUX Start: 05-30-2017 End: 10-26-2017 take 1 tablet by mouth once daily Pantoprazole 40 MG tablet Discontinued 40 mg PO DAILY May 30, 2017 12:00am October 26, 2017 11:44am gerd PARoxetine hydrochloride 10 mg oral tablet (7 sources) Serotonin Reuptake Inhibitor Start: 05-31-2022 take 5 mg by mouth once daily Paroxetine Hcl 10 mg tablet Active 5 mg PO DAILY May 31, 2022 12:00am Start: 05-31-2022 take 5 mg by mouth once daily Paroxetine Hcl Active 5 MG PO DAILY May 30, 2022 11:00pm sucralfate 1000 mg oral tablet (20 sources) Aluminum Complex Start: 12-10-2015 End: 10-29-2017 take 1 tablet by mouth at bedtime as needed for gastroesophageal reflux disease Sucralfate 1 GM tablet Active 1 g PO AT BEDTIME as needed for reflux October 29, 2017 12:37pm Start: 11-30-2011 End: 12-21-2014 take 1 tablet by mouth at bedtime Sucralfate 1 GM tablet Discontinued 1 g PO AT BEDTIME December 08, 2014 12:00am December 21, 2014 8:11am Start: 11-30-2011 take 1 tablet by jarad th once daily CARAFATE 1 GM TABS One tablet by mouth daily SUCRALFATE [id number] Malcolm Hughes MD Start: 11-30-2011 take 1 tablet by jarad th twice daily CARAFATE 1 GM TABS One tablet by mouth twice daily SUCRALFATE [id number] Malcolm Hughes MD Start: 11-30-2011 take 1 tablet by jarad th once daily CARAFATE 1 GM TABS One tablet by mouth daily SUCRALFATE [id number] Malcolm Hughes MD Start: 11-30-2011 take 1 tablet by jarad th twice daily CARAFATE 1 GM TABS One tablet by mouth twice daily SUCRALFATE [id number] Malcolm Hughes MD Completed/Discontinued Medications Medication Drug Class(es) Dates Sig (Normalized) Sig (Original) ascorbic acid 500 mg oral tablet (8 sources) Vitamin C Start: 05-18-2021 End: 03-08-2023 take 1 tablet by mouth once daily Ascorbic Acid (Vitamin C) 500 mg tablet Discontinued 500 mg PO DAILY May 18, 2021 12:00am March 08, 2023 2:05pm aspirin 81 mg oral tablet (12 sources) Nonsteroidal Anti-inflammatory Drug Start: 12-22-2015 End: 05-03-2016 take 1 tablet by mouth once daily ASPIRIN 81 MG TABS One tablet by mouth daily ASPIRIN [id number] Barbie Sultana RN Start: 12-22-2015 End: 05-03-2016 take 1 tablet by mouth once daily ASPIRIN 81 MG TABS One tablet by mouth daily ASPIRIN [id number] Barbie Sultana RN calcium carbonate / vitamin D (12 sources) Start: 01-19-2011 take 1 tablet by mouth once daily CALCIUM CARBONATE-VITAMIN D 600-125 MG-UNIT TABS One tablet by mouth daily CALCIUM CARBONATE-VITAMIN D [id number] Malcolm Hughes MD Start: 01-19-2011 take 1 tablet by jarad once daily CALCIUM CARBONATE-VITAMIN D 600-125 MG-UNIT TABS One tablet by mouth daily CALCIUM CARBONATE-VITAMIN D [id number] Aleja Harvey cephalexin 500 mg oral capsule (20 sources) Cephalosporin Antibacterial Start: 06-28-2017 End: 10-26-2017 take 1 capsule by mouth every twelve hours Cephalexin 500 MG capsule Discontinued 500 mg PO Q12H 14 0 June 28, 2017 11:45am October 26, 2017 11:45am Start: 08-14-2014 End: 03-01-2015 take 1 tablet by mouth twice daily KEFLEX 500 MG CAPS One tablet by mouth twice daily CEPHALEXIN [id number] Malcolm Hughes MD Start: 08-14-2014 End: 03-01-2015 take 1 tablet by mouth twice daily KEFLEX 500 MG CAPS One tablet by mouth twice daily CEPHALEXIN [id number] Malcolm Hughes MD Cranberry Fruit Concentrate (14 sources) Non-Standardized Food Allergenic Extract, Non-Standardized Plant Allergenic Extract Start: 03-08-2023 End: 06-21-2024 take 1 tablet by mouth once daily Cranberry Fruit Concentrate (Azo Cranberry) 250 mg tablet,chewable Discontinued 250 mg PO DAILY March 08, 2023 12:00am June 21, 2024 3:56am Start: 03-08-2023 take 1 tablet by jarad th once daily Cranberry Fruit Concentrate (Azo Cranberry) 250 mg tablet,chewable Active 250 MG PO DAILY March 07, 2023 11:00pm Start: 10-29-2017 End: 05-18-2021 take 1 tablet by mouth once daily Cranberry Fruit Concentrate (Azo Cranberry) 250 mg tablet,chewable Discontinued 250 MG PO DAILY October 29, 2017 12:40pm May 18, 2021 2:06pm Start: 10-29-2017 End: 05-18-2021 take 1 tablet by mouth once daily Cranberry Fruit Concentrate (Azo Cranberry) 250 mg tablet,chewable Discontinued 250 mg PO DAILY October 29, 2017 1:00am May 18, 2021 2:06pm supplement Start: 10-29-2017 End: 05-18-2021 take 1 tablet by mouth once daily Cranberry Fruit Concentrate (Azo Cranberry) 250 mg tablet,chewable Discontinued 250 mg PO DAILY October 29, 2017 1:00am May 18, 2021 2:06pm Start: 10-29-2017 End: 05-18-2021 take 1 tablet by mouth once daily Cranberry Fruit Concentrate (Azo Cranberry) 250 mg tablet,chewable Discontinued 250 MG PO DAILY October 29, 2017 12:00am May 18, 2021 1:06pm Start: 10-29-2017 End: 05-18-2021 take 1 tablet by mouth once daily Cranberry Fruit Concentrate (Azo Cranberry) 250 mg tablet,chewable Discontinued 250 MG PO DAILY October 29, 2017 1:00am May 18, 2021 2:06pm desloratadine 5 mg oral tablet (6 sources) Histamine-1 Receptor Antagonist Start: 01-19-2011 take 1 tablet by mouth once daily CLARINEX 5 MG TABS One tablet by mouth daily DESLORATADINE [id number] Aleja Harvey dicyclomine hydrochloride 10 mg oral tablet (12 sources) Anticholinergic Start: 01-19-2011 End: 11-30-2011 BENTYL 10 MG CAPS As needed DICYCLOMINE HCL [id number] Malcolm Hughes MD Start: 01-19-2011 End: 11-30-2011 BENTYL 10 MG CAPS As needed DICYCLOMINE HCL [id number] Malcolm Hughes MD esomeprazole 40 mg delayed release oral capsule (20 sources) Proton Pump Inhibitor Start: 10-26-2017 End: 10-29-2017 take 1 capsule by mouth once daily Esomeprazole Magnesium (Nexium) 40 mg capsule,delayed release(DR/EC) Discontinued 40 mg PO daily October 26, 2017 1:00am October 29, 2017 12:40pm Start: 01-19-2011 take 1 tablet by jarad th once daily NEXIUM 40 MG CPDR One tablet by mouth daily ESOMEPRAZOLE MAGNESIUM [id number] Malcolm Hughes MD Start: 01-19-2011 take 1 tablet by jarad th once daily NEXIUM 40 MG CPDR One tablet by mouth daily ESOMEPRAZOLE MAGNESIUM [id number] Malcolm Hughes MD fludrocortisone acetate 0.1 mg oral tablet (8 sources) Start: 12-11-2014 End: 12-21-2014 take 1 tablet by mouth once daily Fludrocortisone 0.1 MG tablet Discontinued 0.05 mg PO DAILY@799December 11, 2014 12:00am December 21, 2014 8:12am Start: 12-11-2014 End: 12-21-2014 take 0.05 mg by mouth once daily Fludrocortisone Discontinued 0.05 MG PO DAILY@799December 10, 2014 11:00pm December 21, 2014 7:12am 120 actuat formoterol fumarate 0.0048 mg/actuat / glycopyrrolate 0.009 mg/actuat metered dose inhaler (20 sources) beta2-Adrenergic Agonist Start: 03-06-2022 End: 10-03-2022 Glycopyrrolate-Formoterol (Bevespi Aerosphere) 9-4.8 mcg HFA aerosol inhaler Discontinued 2 NMA INHALATION TWICE A DAY 10.7 5 March 06, 2022 11:07am October 03, 2022 10:30am Chronic obstructive pulmonary disease Chronic obstructive pulmonary disease, unspecified Start: 03-06-2022 End: 10-03-2022 Glycopyrrolate-Formoterol (B evespi Aerosphere) 9-4.8 mcg HFA aerosol inhaler Discontinued 2 PUFF INHALATION TWICE A DAY 10.7 March 06, 2022 10:07am October 03, 2022 9:30am Start: 09-06-2021 End: 09-06-2021 Glycopyrrolate-Formoterol (B evespi Aerosphere) 9-4.8 mcg HFA aerosol inhaler Discontinued 2 NMA INHALATION Q12H 10.7 5 September 06, 2021 1:00am September 06, 2021 11:20am Start: 09-06-2021 End: 09-06-2021 Glycopyrrolate-Formoterol (B evespi Aerosphere) 9-4.8 mcg HFA aerosol inhaler Discontinued 2 PUFF INHALATION Q12H 10.7 September 06, 2021 12:00am September 06, 2021 10:20am levocetirizine dihydrochloride 5 mg oral tablet (20 sources) Histamine-1 Receptor Antagonist Start: 05-03-2016 End: 08-09-2021 take 1 tablet by mouth at bedtime as needed Levocetirizine 5 MG tablet Discontinued 5 mg PO AT BEDTIME as needed for Allergies October 29, 2017 12:39pm August 09, 2021 2:04pm lisinopril 5 mg oral tablet (8 sources) Angiotensin Converting Enzyme Inhibitor Start: 06-30-2020 End: 05-18-2021 take 1 tablet by mouth once daily Lisinopril 5 mg tablet Discontinued 5 mg PO DAILY 23 03June 30, 2020 12:00am May 18, 2021 2:06pm loratadine 10 mg oral capsule (18 sources) Start: 01-10-2013 End: 05-03-2016 take 1 tablet by mouth once daily as needed CLARITIN 10 MG CAPS One tablet by mouth daily as needed LORATADINE [id number] Malcolm Hughes MD Start: 01-10-2013 End: 05-03-2016 take 1 tablet by mouth once daily as needed CLARITIN 10 MG CAPS One tablet by mouth daily as needed LORATADINE [id number] Malcolm Hughes MD LORazepam 0.5 mg oral tablet (20 sources) Benzodiazepine Start: 08-09-2021 End: 12-09-2024 take 1 tablet by mouth once daily as needed for anxiety Lorazepam 0.5 mg tablet Discontinued 0.5 mg PO DAILY NEEDED as needed for Anxiety August 09, 2021 2:01pm December 09, 2024 10:57am Start: 12-08-2014 End: 08-09-2021 take 0.25 mg by mouth once daily as needed for anxiety Lorazepam 0.5 MG tablet Discontinued 0.25 mg PO DAILY NEEDED as needed for Anxiety December 08, 2014 12:00am August 09, 2021 2:04pm Start: 12-08-2014 End: 08-09-2021 take 0.25 mg by mouth once daily as needed Lorazepam Discontinued 0.25 MG PO DAILY NEEDED December 07, 2014 11:00pm August 09, 2021 1:04pm Start: 01-19-2011 ATIVAN 1 MG TA BS As needed LORAZEPAM [id number] Malcolm Hughes MD Start: 01-19-2011 take 1 tablet by jarad twice daily as needed LORAZEPAM 0.5 MG TABS One tablet by mouth twice daily as needed LORAZEPAM [id number] Rubi Gonzales RN metoclopramide 10 mg oral tablet (12 sources) Dopamine-2 Receptor Antagonist Start: 01-19-2011 End: 11-30-2011 REGLAN 10 MG TABS As needed METOCLOPRAMIDE HCL [id number] Aleja Harvey 24 hr metoprolol succinate 50 mg extended release oral tablet (20 sources) beta-Adrenergic Rasheeda Start: 05-30-2017 End: 12-25-2024 take 1 tablet by mouth once daily Metoprolol Succinate 50 mg tablet extended release 24 hr Discontinued 50 mg PO DAILY 90 3 December 22, 2024 9:29am December 25, 2024 8:15am blood pressure/heart Start: 01-10-2013 End: 05-30-2017 take 1 tablet by mouth twice daily Metoprolol Succinate 50 MG tablet Discontinued 50 mg PO TWICE A DAY 90 0 December 12, 2015 12:00am May 30, 2017 11:39am Start: 01-10-2013 take 1 tablet by jarad th once daily TOPROL XL 50 MG [id number] One tablet by mouth daily METOPROLOL SUCCINATE [id number] Karan Persaud MD Start: 01-10-2013 take 1 tablet by jarad th once daily TOPROL XL 50 MG [id number] One tablet by mouth daily METOPROLOL SUCCINATE [id number] Malcolm Hughes MD Start: 01-10-2013 take 1 tablet by jarad th once daily TOPROL XL 50 MG [id number] One tablet by mouth daily METOPROLOL SUCCINATE [id number] Malcolm Hughes MD Start: 01-10-2013 take 1 tablet by jarad th once daily TOPROL XL 50 MG [id number] One tablet by mouth daily METOPROLOL SUCCINATE [id number] Karan Persaud MD Start: 10-07-2012 take 2 tablets by mo uth once daily TOPROL XL 50 MG [id number] Two tablets by mouth daily METOPROLOL SUCCINATE [id number] Malcolm Hughes MD Start: 10-07-2012 take 2 tablets by mo uth once daily TOPROL XL 50 MG [id number] Two tablets by mouth daily METOPROLOL SUCCINATE [id number] Malcolm Hughes MD Start: 09-19-2012 TOPROL XL 50 M G [id number] 1 and 1/2 tablet by mouth daily METOPROLOL SUCCINATE [id number] Malcolm Hughes MD Start: 09-19-2012 TOPROL XL 50 M G [id number] 1 and 1/2 tablet by mouth daily METOPROLOL SUCCINATE [id number] Malcolm Hughes MD Start: 06-03-2012 take 1 tablet by jarad th once daily TOPROL XL 50 MG [id number] One tablet by mouth daily METOPROLOL SUCCINATE [id number] Malcolm Hughes MD Start: 06-03-2012 take 1 tablet by jarad th once daily TOPROL XL 50 MG [id number] One tablet by mouth daily METOPROLOL SUCCINATE [id number] Malcolm Hughes MD Start: 01-19-2011 End: 12-12-2015 take 1 tablet by mouth once daily Metoprolol Succinate 50 MG tablet Discontinued 50 mg PO DAILY December 08, 2014 12:00am December 12, 2015 1:08pm Start: 01-19-2011 take 1 tablet by jarad th once daily TOPROL XL 50 MG [id number] One tablet by mouth daily METOPROLOL SUCCINATE [id number] Aleja Harvey Start: 01-19-2011 take 1 tablet by jarad th once daily TOPROL XL 50 MG [id number] One tablet by mouth daily METOPROLOL SUCCINATE [id number] Aleja Harvey MOMETASONE FUROATE (18 sources) Corticosteroid Start: 01-19-2011 End: 05-03-2016 NASONEX 50 MCG/ACT SUSP Take as directed MOMETASONE FUROATE [id number] Aleja Harvey Start: 01-19-2011 NASONEX 50 MCG /ACT SUSP Take as directed MOMETASONE FUROATE [id number] Aleja Harvey Start: 01-19-2011 End: 05-03-2016 NASONEX 50 MCG/ACT SUSP Take as directed MOMETASONE FUROATE [id number] Malcolm Hughes MD Start: 01-19-2011 NASONEX 50 MCG /ACT SUSP Take as directed MOMETASONE FUROATE [id number] Malcolm Hughes MD montelukast 10 mg oral tablet (12 sources) Leukotriene Receptor Antagonist Start: 06-03-2012 End: 01-10-2013 take 1 tablet by mouth once daily SINGULAIR 10 MG TABS One tablet by mouth daily MONTELUKAST SODIUM [id number] Malcolm Hughes MD MULTIPLE VITAMIN (8 sources) Start: 01-19-2011 take 1 tablet by mouth once daily MULTIVITAMINS TABS One tablet by mouth daily MULTIPLE VITAMIN [id number] Aleja Lozadaward Start: 01-19-2011 End: 08-30-2015 take 1 tablet by mouth once daily MULTIVITAMINS TABS One tablet by mouth daily MULTIPLE VITAMIN [id number] Malcolm Hughes MD MULTIPLE VITAMIN (4 sources) Start: 01-19-2011 take 1 tablet by mouth once daily MULTIVITAMINS TABS One tablet by mouth daily MULTIPLE VITAMIN [id number] Aleja Ridley Wes Start: 01-19-2011 End: 08-30-2015 take 1 tablet by mouth once daily MULTIVITAMINS TABS One tablet by mouth daily MULTIPLE VITAMIN [id number] Malcolm Hughes MD Tiotropium-Olodaterol (20 sources) Anticholinergic, beta2-Adrenergic Agonist Start: 09-10-2023 End: 06-21-2024 Tiotropium-Olodaterol (Stiolto Respimat) 2.5-2.5 mcg/actuation mist Discontinued 2 NMA INHALATION DAILY 3 September 10, 2023 10:16am June 21, 2024 3:56am Start: 09-10-2023 End: 06-21-2024 Tiotropium-Olodaterol (Stiol to Respimat) 2.5-2.5 mcg/actuation mist Discontinued 2 NMA INHALATION DAILY September 10, 2023 10:16am June 21, 2024 3:56am Start: 10-03-2022 End: 09-10-2023 Tiotropium-Olodaterol (Stiol to Respimat) 2.5-2.5 mcg/actuation mist Discontinued 2 NMA INHALATION DAILY 3 October 03, 2022 1:00am September 10, 2023 10:16am Start: 10-03-2022 End: 09-10-2023 Tiotropium-Olodaterol (Stiol to Respimat) 2.5-2.5 mcg/actuation mist Discontinued 2 NMA INHALATION DAILY October 03, 2022 1:00am September 10, 2023 10:16am Start: 10-03-2022 Tiotropium-Olo daterol (Stiolto Respimat) 2.5-2.5 mcg/actuation mist Active 2 PUFF INHALATION DAILY October 03, 2022 12:00am Start: 05-18-2021 End: 09-06-2021 Tiotropium-Olodaterol 2.5-2. 5 mcg/actuation mist Discontinued 2 NMA INHALATION Q24H May 18, 2021 2:05pm September 06, 2021 11:13am Start: 05-18-2021 End: 09-06-2021 Tiotropium-Olodaterol Discon tinued 2 INH INHALATION Q24H May 18, 2021 1:05pm September 06, 2021 10:13am Start: 05-18-2021 End: 09-06-2021 Tiotropium-Olodaterol Discon tinued 2 INH INHALATION Q24H May 18, 2021 2:05pm September 06, 2021 11:13am Start: 07-16-2020 End: 05-18-2021 Tiotropium-Olodaterol 2.5-2. 5 mcg/actuation mist Discontinued 2 NMA INHALATION Q24H 4 July 16, 2020 11:10am May 18, 2021 2:06pm Start: 07-16-2020 End: 05-18-2021 Tiotropium-Olodaterol 2.5-2. 5 mcg/actuation mist Discontinued 2 NMA INHALATION Q24H 4 July 16, 2020 11:10am May 18, 2021 2:06pm Start: 07-16-2020 End: 05-18-2021 Tiotropium-Olodaterol Discon tinued 2 INH INHALATION Q24H 4 July 16, 2020 10:10am May 18, 2021 1:06pm Start: 06-30-2020 End: 07-16-2020 Tiotropium-Olodaterol Discon tinued INHALATION June 30, 2020 11:38am July 16, 2020 11:10am Start: 06-30-2020 End: 07-16-2020 Tiotropium-Olodaterol 2.5-2. 5 mcg/actuation mist Discontinued INHALATION June 30, 2020 12:00am July 16, 2020 11:10am Start: 06-30-2020 End: 07-16-2020 Tiotropium-Olodaterol Discon tinued INHALATION June 29, 2020 11:00pm July 16, 2020 10:10am Start: 06-30-2020 End: 07-16-2020 Tiotropium-Olodaterol Discon tinued INHALATION June 30, 2020 12:00am July 16, 2020 11:10am oxyCODONE hydrochloride 5 mg oral tablet (18 sources) Opioid Agonist Start: 05-22-2024 End: 12-09-2024 take 1 tablet by mouth every six hours as needed for pain Oxycodone 5 mg Tablet Discontinued 5 mg PO EVERY 6 HOURS NEEDED as needed for Pain Score 6-10 28 7 0 June 22, 2024 December 09, 2024 10:57am Compression fracture of thoracic vertebra Start: 12-11-2014 End: 12-21-2014 take 2 tablets by mouth every four hours as needed for pain Oxycodone 5 MG tablet Discontinued 10 mg PO EVERY 4 HOURS NEEDED as needed for PAIN 0 0 December 11, 2014 12:00am December 21, 2014 8:11am Start: 12-11-2014 End: 12-21-2014 take 10 mg by mouth every four hours as needed Oxycodone Discontinued 10 MG PO EVERY 4 HOURS NEEDED 0 December 10, 2014 11:00pm December 21, 2014 7:11am Pantoprazole 40 mg tablet,delayed release (DR/EC) (5 sources) Start: 12-05-2023 End: 10-08-2024 take 1 tablet by mouth once daily Pantoprazole 40 mg tablet,delayed release (DR/EC) Discontinued 40 mg PO DAILY 90 December 05, 2023 9:11am October 08, 2024 3:14pm for acid reflux Start: 12-05-2023 End: 10-08-2024 take 1 tablet by mouth once daily Pantoprazole 40 mg tablet,delayed release (DR/EC) Discontinued 40 mg PO DAILY December 05, 2023 9:11am October 08, 2024 3:14pm POLYSACCHARIDE IRON COMPLEX (12 sources) Start: 03-01-2015 End: 08-30-2015 take 1 tablet by mouth once daily FERREX 150 150 MG CAPS One tablet by mouth daily POLYSACCHARIDE IRON COMPLEX [id number] Malcolm Hughes MD Start: 03-01-2015 End: 08-30-2015 take 1 tablet by mouth once daily FERREX 150 150 MG CAPS One tablet by mouth daily POLYSACCHARIDE IRON COMPLEX [id number] Malcolm Hughes MD Start: 03-01-2015 take 1 tablet by jarad th once daily FERREX 150 150 MG CAPS One tablet by mouth daily POLYSACCHARIDE IRON COMPLEX [id number] Malcolm Hughes MD pravastatin sodium 80 mg oral tablet (20 sources) HMG-CoA Reductase Inhibitor Start: 08-06-2013 End: 07-25-2024 Pravastatin 80 mg tablet Discontinued 0 .ROUTE .COMPLEX 90 3 July 31, 2023 9:03am July 25, 2024 9:23am TAKE 1 TABLET AT BEDTIME FOR CHOLESTEROL Start: 12-26-2011 take 1 tablet by jarad th at bedtime PRAVACHOL 40 MG TABS One tablet by mouth at bedtime. PRAVASTATIN SODIUM [id number] Malcolm Hughes MD Start: 09-14-2011 End: 08-27-2012 take 1 tablet by mouth at bedtime PRAVACHOL 20 MG TABS One tablet by mouth at bedtime. PRAVASTATIN SODIUM [id number] Malcolm Hughes MD predniSONE 20 mg oral tablet (8 sources) Start: 05-30-2017 End: 06-27-2017 take 3 tablets by mouth once daily Prednisone 20 MG tablet Discontinued 60 mg PO DAILY 15 May 30, 2017 12:00am June 27, 2017 2:16pm Start: 05-30-2017 End: 06-27-2017 take 60 mg by mouth once daily Prednisone Discontinued 60 MG PO DAILY May 29, 2017 11:00pm June 27, 2017 1:16pm raloxifene hydrochloride 60 mg oral tablet (20 sources) Estrogen Agonist/Antagonist Start: 04-08-2020 End: 05-18-2021 take 1 tablet by mouth once daily Raloxifene (Evista) 60 mg tablet Discontinued 60 mg PO DAILY April 08, 2020 12:00am May 18, 2021 2:05pm Start: 12-11-2014 End: 12-10-2015 take 1 tablet by mouth once daily Raloxifene (Evista) 60 MG tablet Discontinued 60 mg PO DAILY 30 0 December 21, 2014 8:12am December 10, 2015 4:26pm raNITIdine 150 mg oral tablet (20 sources) Histamine-2 Receptor Antagonist Start: 11-18-2019 End: 05-18-2021 take 1 tablet by mouth once daily as needed Ranitidine Hcl 150 MG tablet Discontinued 150 mg PO DAILY NEEDED as needed for Indigestion November 18, 2019 1:00am May 18, 2021 2:05pm Start: 09-23-2019 End: 10-08-2019 Ranitidine Hcl 150 mg tablet Discontinued 20 mg PO DAILY September 23, 2019 11:16am October 08, 2019 2:46pm gerd Start: 09-23-2019 End: 10-08-2019 take 20 mg by mouth once daily Ranitidine Hcl Disconti nued 20 MG PO DAILY September 23, 2019 10:16am October 08, 2019 1:46pm Start: 09-23-2019 End: 10-08-2019 take 20 mg by mouth once daily Ranitidine Hcl Disconti nued 20 MG PO DAILY September 23, 2019 11:16am October 08, 2019 2:46pm Start: 09-23-2019 End: 10-08-2019 take 20 mg by mouth once daily Ranitidine Hcl Disconti nued 20 MG PO DAILY September 23, 2019 11:16am October 08, 2019 2:46pm Start: 12-10-2015 End: 09-23-2019 take 1 tablet by mouth once daily Ranitidine Hcl 150 MG tablet Discontinued 150 mg PO DAILY October 29, 2017 12:37pm September 23, 2019 11:17am gerd Start: 02-02-2014 End: 12-21-2014 take 1 tablet by mouth once daily Ranitidine (Zantac) 150 MG tablet Discontinued 150 mg PO DAILY December 08, 2014 12:00am December 21, 2014 8:11am Start: 02-02-2014 take 1 tablet by jarad twice daily RANITIDINE HCL 150 MG TABS One tablet by mouth twice daily RANITIDINE HCL [id number] Malcolm Hughes MD risedronate sodium 150 mg oral tablet (12 sources) Bisphosphonate Start: 01-19-2011 End: 11-30-2011 take 1 tablet by mouth every month ACTONEL 150 MG TABS 1 tablet by mouth monthly RISEDRONATE SODIUM [id number] Malcolm Hughes MD simvastatin 20 mg oral tablet (12 sources) HMG-CoA Reductase Inhibitor Start: 01-19-2011 End: 09-14-2011 take 1 tablet by mouth at bedtime SIMVASTATIN 20 MG TABS One tablet by mouth at bedtime. SIMVASTATIN [id number] Samantha Salgado RN 7 actuat umeclidinium 0.0625 mg/actuat / vilanterol 0.025 mg/actuat dry powder inhaler (9 sources) Anticholinergic, beta2-Adrenergic Agonist Start: 09-06-2021 End: 11-22-2021 Umeclidinium-Vilan terol (Anoro Ellipta) 62.5-25 mcg/actuation blister with device Discontinued 2 September 06, 2021 11:20am November 22, 2021 12:32pm Start: 09-06-2021 End: 11-22-2021 Umeclidinium-Vilanterol (Ano ro Ellipta) 62.5-25 mcg/actuation blister with device Discontinued 1 INH INHALATION DAILY September 06, 2021 11:20am November 22, 2021 12:32pm Start: 09-06-2021 End: 11-22-2021 Umeclidinium-Vilanterol (Ano ro Ellipta) 62.5-25 mcg/actuation blister with device Discontinued 1 NMA INHALATION DAILY 60 September 06, 2021 1:00am November 22, 2021 12:32pm Chronic obstructive pulmonary disease, unspecified Start: 09-06-2021 End: 11-22-2021 Umeclidinium-Vilanterol (Ano ro Ellipta) 62.5-25 mcg/actuation blister with device Discontinued 1 NMA INHALATION DAILY 60 September 06, 2021 1:00am November 22, 2021 12:32pm Start: 09-06-2021 End: 11-22-2021 Umeclidinium-Vilanterol (Ano ro Ellipta) 62.5-25 mcg/actuation blister with device Discontinued 1 INH INHALATION DAILY 60 September 06, 2021 12:00am November 22, 2021 11:32am Start: 09-06-2021 End: 11-22-2021 Umeclidinium-Vilanterol (Ano ro Ellipta) 62.5-25 mcg/actuation blister with device Discontinued 1 INH INHALATION DAILY 60 September 06, 2021 1:00am November 22, 2021 12:32pm Problems Active Problems Problem Classification Problem Date Documented Date Episodic/Chronic Acute and chronic tonsillitis (8 sources) Chronic tonsillitis; Translations: [Chronic tonsillitis] 02-06-2020 Chronic Acute myocardial infarction (12 sources) ST elevation (STEMI) myocardial infarction involving other coronary artery of anterior wall; Translations: [ST elevation (STEMI) myocardial infarction involving other coronary artery of anterior wall] Onset: 01-19-2011 Resolved: 12-27-2015 12-27-2015 Chronic Asthma (8 sources) Asthma; Translations: [Unspecified asthma, uncomplicated] 09-23-2019 Chronic Cancer of head and neck (6 sources) Malignant neoplasm of tongue, unspecified; Translations: [Malignant neoplasm of tongue, unspecified] Onset: 01-19-2011 01-19-2011 Chronic Cancer; other and unspecified primary (8 sources) History of malignant neoplasm of head and/or neck; Translations: [Personal history of malignant neoplasm of other organs and systems] 02-06-2020 Episodic Cardiac dysrhythmias (6 sources) Sinus tachycardia; Translations: [Tachycardia, unspecified] Onset: 09-19-2012 09-19-2012 Chronic Cataract (8 sources) Bilateral cataracts; Translations: [Unspecified cataract] 08-09-2021 Chronic Chronic obstructive pulmonary disease and bronchiectasis (8 sources) Chronic obstructive lung disease; Translations: [Chronic obstructive pulmonary disease, unspecified] 09-06-2021 Chronic Comment on above: FEV1 64% Chronic obstructive pulmonary disease and bronchiectasis (8 sources) Bronchitis; Translations: [Bronchitis, not specified as acute or chronic] 11-18-2019 Episodic Coronary atherosclerosis and other heart disease (20 sources) Old myocardial infarction; Translations: [Atherosclerotic heart disease of [place] coronary artery without angina pectoris] Onset: 01-19-2011 12-27-2015 Chronic Comment on above: Nonobstructive CAD p er cath 12/11/[address] Narvaez [facility]; LEFT MAIN: Angiographically normal; LEFT ANTERIOR DESCENDING ARTERY: Angiographically normal; CIRCUMFLEX ARTERY: Angiographically normal; RIGHT CORONARY ARTERY: PROX RCA: Mild luminal irregularities; MID RCA: Mild luminal irregularities; AORTIC ROOT:Angiographically normal per cath 07/17/19 Deficiency and other anemia (8 sources) Anemia; Translations: [Anemia, unspecified] 08-09-2021 Episodic Diabetes mellitus without complication (1 source) Diabetes mellitus without complication Onset: 02-14-2018 Disorders of lipid metabolism (19 sources) Hyperlipidemia; Translations: [Hyperlipidemia, unspecified] Onset: 12-26-2011 12-26-2011 Chronic Disorders of teeth and jaw (1 source) Disease of jaws, unspecified; Translations: [Disease of jaws, unspecified] Onset: 02-14-2018 Episodic Esophageal disorders (8 sources) Gastroesophageal reflux disease; Translations: [Gastro-esophageal reflux disease without esophagitis] 11-18-2019 Chronic Essential hypertension (20 sources) Hypertensive disorder; Translations: [Benign essential hypertension] Onset: 09-19-2012 09-19-2012 Chronic Headache; including migraine (5 sources) Acute headache; Translations: [Acute headache] 07-05-2024 Episodic Malignant neoplasm without specification of site (8 sources) Malignant neoplastic disease; Translations: [Malignant (primary) neoplasm, unspecified] 08-09-2021 Chronic Menstrual disorders (1 source) Excessive and frequent menstruation with irregular cycle; Translations: [Excessive and frequent menstruation with irregular cycle] Onset: 11-13-2024 Chronic Nonspecific chest pain (20 sources) Chest discomfort; Translations: [Precordial pain] Onset: 01-19-2011 01-19-2011 Episodic Osteoarthritis (13 sources) Arthritis; Translations: [Unspecified osteoarthritis, unspecified site] 08-09-2021 Chronic Osteoporosis (16 sources) Osteoporosis; Translations: [Age-related osteoporosis without current pathological fracture] Onset: 06-22-2024 Chronic Other acquired deformities (8 sources) Kyphoscoliosis deformity of spine; Translations: [Scoliosis, unspecified] 12-30-2019 Chronic Other acquired deformities (1 source) Scoliosis, unspecified; Translations: [Scoliosis, unspecified] Onset: 06-22-2024 Chronic Other and ill-defined heart disease (18 sources) Takotsubo cardiomyopathy; Translations: [Takotsubo syndrome] Onset: 06-03-2012 06-03-2012 Chronic Other and ill-defined heart disease (1 source) Takotsubo syndrome; Translations: [Takotsubo syndrome] Chronic Other circulatory disease (8 sources) H/O: cardiovascular disease; Translations: [Personal history of other diseases of the circulatory system] 10-16-2018 Episodic Other ear and sense organ disorders (8 sources) Otalgia, right ear; Translations: [Right ear pain] 02-06-2020 Episodic Other fractures (5 sources) Compression fracture of thoracic spine; Translations: [Wedge compression fracture of unspecified thoracic vertebra, initial encounter for closed fracture] 06-21-2024 Episodic Other injuries and conditions due to external causes (8 sources) H/O: hip fracture; Translations: [Personal history of (healed) traumatic fracture] 10-16-2018 Episodic Comment on above: ORIF Dr Villa 12/10, [facility] Other lower respiratory disease (14 sources) Dyspnea; Translations: [Shortness of breath] Onset: 01-19-2011 01-19-2011 Episodic Other lower respiratory disease (8 sources) Nodule of lung; Translations: [Solitary pulmonary nodule] 11-18-2019 Episodic Other lower respiratory disease (5 sources) Multiple nodules of lung; Translations: [Other nonspecific abnormal finding of lung field] 06-21-2024 Episodic Other non-traumatic joint disorders (5 sources) Hip pain; Translations: [Pain in right hip] 05-30-2024 Episodic Other nutritional; endocrine; and metabolic disorders (8 sources) Dconc-4-yapxrxjlytv deficiency; Translations: [Kyiti-7-hlkayuepmix deficiency] 07-16-2020 Chronic Comment on above: M/Z Other screening for suspected conditions (not mental disorders or infectious disease) (8 sources) Imaging of thorax abnormal; Translations: [Abnormal findings on diagnostic imaging of other specified body structures] 09-23-2019 Chronic Comment on above: Apical scarring on C XR 06/2019 Other upper respiratory disease (8 sources) Seasonal allergy; Translations: [Other seasonal allergic rhinitis] 08-09-2021 Chronic Peripheral and visceral atherosclerosis (6 sources) Claudication; Translations: [Peripheral vascular disease, unspecified] Onset: 01-19-2011 01-19-2011 Chronic Residual codes; unclassified (16 sources) History of pericardiectomy; Translations: [Other specified postprocedural states] 05-12-2021 Episodic Comment on above: 03/09/[address] Nirmal Morse for recurrent pericardial effusion Residual codes; unclassified (8 sources) History of cardiac catheterization; Translations: [Other specified postprocedural states] 07-22-2019 Episodic Comment on above: 12/05/2006 @ [facility] per Dr. Hughes; 12/11/[address] Narvaez@ [facility]; LEFT MAIN: Angiographically normal; LEFT ANTERIOR DESCENDING ARTERY: Angiographically normal; CIRCUMFLEX ARTERY: Angiographically normal; RIGHT CORONARY ARTERY: PROX RCA: Mild luminal irregularities; MID RCA: Mild luminal irregularities; AORTIC ROOT: Angiographically normal per cath 07/17/2019 Spondylosis; intervertebral disc disorders; other back problems (8 sources) Lumbar spondylosis; Translations: [Spondylosis without myelopathy or radiculopathy, lumbar region] Onset: 06-09-2024 05-30-2024 Chronic Unclassified (2 sources) Long-term drug therapy; Translations: [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] Onset: 01-19-2011 01-19-2011 Unclassified (1 source) Low back pain, unspecified; Translations: [Low back pain, unspecified] Onset: 07-11-2024 Urinary tract infections (1 source) Urinary tract infection, site not specified; Translations: [Urinary tract infection, site not specified] Onset: 05-18-2025 Episodic Past or Other Problems Problem Classification Problem Date Documented Date Episodic/Chronic Cardiac dysrhythmias (6 sources) Palpitations; Translations: [Palpitations] Onset: 01-19-2011 01-19-2011 Episodic Fluid and electrolyte disorders (10 sources) Hyponatremia; Translations: [Hypo-osmolality and hyponatremia] Onset: 06-22-2024 Episodic Genitourinary symptoms and ill-defined conditions (1 source) Frequency of micturition; Translations: [Frequency of micturition] Onset: 02-09-2025 Episodic Other aftercare (4 sources) 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; Translations: [Other assisted (current) drug therapy] Onset: 01-19-2011 01-19-2011 Episodic Other circulatory disease (6 sources) Electrocardiogram abnormal; Translations: [Abnormal electrocardiogram [ECG] [EKG]] Onset: 01-19-2011 01-19-2011 Episodic Other fractures (1 source) Wedge compression fracture of unspecified thoracic vertebra, initial encounter for closed fracture; Translations: [Wedge compression fracture of unspecified thoracic vertebra, initial encounter for closed fracture] Onset: 06-22-2024 Episodic Other fractures (1 source) Wedge compression fracture of T5-T6 vertebra, initial encounter for closed fracture; Translations: [Wedge compression fracture of T5-T6 vertebra, initial encounter for closed fracture] Onset: 06-22-2024 Episodic Other lower respiratory disease (1 source) Other nonspecific abnormal finding of lung field; Translations: [Other nonspecific abnormal finding of lung field] Onset: 06-22-2024 Episodic Pancreatic disorders (not diabetes) (6 sources) Pancreatic duct disorder; Translations: [Other specified diseases of pancreas] Onset: 06-22-2024 06-21-2024 Episodic Leatha-; endo-; and myocarditis; cardiomyopathy (6 sources) Pericardial effusion; Translations: [Pericardial effusion (noninflammatory)] Onset: 01-19-2011 01-19-2011 Episodic Spondylosis; intervertebral disc disorders; other back problems (20 sources) Back problem; Translations: [Dorsopathy, unspecified] Onset: 06-22-2024 08-09-2021 Episodic Unclassified (6 sources) Echocardiogram abnormal; Translations: [Abnormal findings on diagnostic imaging of heart and coronary circulation] Onset: 01-19-2011 01-19-2011 Episodic Results Test Name Value Interpretation Reference Range Facility Urine Cultureon 05-21-2025 [facility] #2 Below infection level. Urine Culture Streptococcus gallolyticus pas [place] Count 50,000-80,000 GNR lactose distributor sales consultant GNR lactose distributor sales consultant Streptococcus gallolyticus pas: REACTION Ampicillin Islt OSWALDO <=0.25 S Penicillin G Islt OSWALDO <=0.06 Cefotaxime Islt OSWALDO <=0.12 S cefTRIAXone Islt OSWALDO <=0.12 S Linezolid Islt OSWALDO <=2 S Vancomycin Islt OSWALDO 0.5 S Normal [facility] Comment on above: Performed By: #### L [phone] #### [facility] Laboratory [address] [place], [address] Thoracic Spine 2 Viewson Thoracic Spine 2 Views [facility] Imaging Services [address] [place], [place] [id number] Thoracic Spine 2 Views MR#: [id number] Acct: [id number] Name: ALEXY BRANNON Rep #: [id number] : 1945 F [id number] From: José Buck MD PCP: Dr. Malcolm Guzman MD Status: REG CLI Study: Thoracic Spine 2 Views Date of Exam: 04/08/25 Exam# [id number] Ordering Dr: Choco Wu MD EXAM: XR Thoracic Spine, 2 Views CLINICAL INDICATION: SPONDYLOSIS WITHOUT MYELOPATHY OR RADICULOPATHY, THORACIC REGION TECHNIQUE: Frontal and lateral views of the thoracic spine. COMPARISON: No relevant prior studies available. FINDINGS: VERTEBRAE: S shaped scoliosis of the thoracolumbar spine. Moderate endplate degenerative changes and disc disease of the thoracic spine. Status post vertebroplasty of the mid thoracic vertebrae. No acute fracture. Normal alignment. DISC SPACES: See above. SOFT TISSUES: Unremarkable. RAD/Thoracic Spine 2 Views IMPRESSION: Degenerative changes as above. Reading Location: [facility] CC: Dr. Choco Wu MD; Dr. Malcolm Guzman MD Program Or Project Administrator: Signed Normal [facility] Anion gap in Serum or Plasma Ordered By: Malcolm Guzman on 02-17-2025 Anion gap [Moles/Vol] 11 mmol/L - [facility] [facility] BUN/creatinine ratioOrdered By: Malcolm Guzman on 02-17-2025 Urea nitrogen/Creatinine [Mass ratio] 10.5 mg/mg - [facility] Basic Metabolic Profile (BMP )on 02-17-2025 BUN/CRE 10.5 RATIO Normal - [facility] Comment on above: Order Comment: Order Date: 02/10/25 Order Info: 0667-1 - BMP low sodium Performed By: #### L 500.2500 #### [facility] Laboratory [address] [place], [place], [address] Calcium [Mass/Vol] 9.0 mg/dL Normal 7.6-11.0 [facility] Comment on above: Order Comment: Order Date: 02/10/25 Order Info: 0667-1 - BMP low sodium Performed By: #### L 500.2500 #### [facility] Laboratory [address] [place], [address] Chloride [Moles/Vol] 93 mmol/L Low 98-108 [facility] Comment on above: Order Comment: Order Date: 02/10/25 Order Info: 06- - BMP low sodium Performed By: #### L 500.2500 #### [facility] Laboratory [address] [place], [address] CO2 [Moles/Vol] 28.0 mmol/L Normal 21.0-32.0 [facility] Comment on above: Order Comment: Order Date: 02/10/25 Order Info: 666-09 - BMP low sodium Performed By: #### L 500.2500 #### [facility] Laboratory [address] [place], [address] Creatinine [Mass/Vol] 0.74 mg/dL Normal 0.70-1.20 [facility] Comment on above: Order Comment: Order Date: 02/10/25 Order Info: 666-09 - BMP low sodium Performed By: #### L 500.2500 #### [facility] Laboratory [address] [place], [address] GAP 11 Normal 5-15 [facility] Comment on above: Order Comment: Order Date: 02/10/25 Order Info: 666-09 - BMP low sodium Performed By: #### L 500.2500 #### [facility] Laboratory [address] [place], [address] GFR/1.73 sq M.predicted among non-blacks MDRD (S/P/Bld) [Vol rate/Area] 83 mL/min/{1.73_m2} Normal >60 [facility] Comment on above: Order Comment: Order Date: 02/10/25 Order Info: 0667- - BMP low sodium Result Comment: mL/m in/1.73m2 CKD-EPI Creatinine Equation (2020) Performed By: #### L 500.2500 #### [facility] Laboratory [address] [place], [place], [address] [phone] Glucose [Mass/Vol] 94 mg/dL Normal 70-99 [facility] Comment on above: Order Comment: Order Date: 02/10/25 Order Info: 0667-1 - BMP low sodium Performed By: #### L 500.2500 #### [facility] [address] [place], [address] Potassium [Moles/Vol] 4.4 mmol/L Normal 3.3-5.1 [facility] Comment on above: Order Comment: Order Date: 02/10/25 Order Info: 0667-1 - [facility] low sodium Performed By: #### L 500.2500 #### [facility] Laboratory [address] [place], [address] Sodium [Moles/Vol] 132 mmol/L Low 133-145 [facility] Comment on above: Order Comment: Order Date: 02/10/25 Order Info: 0667-1 - [facility] low sodium Performed By: #### L 500.2500 #### [facility] Laboratory [address] [place], [address] Urea nitrogen [Mass/Vol] 8 mg/dL Normal 4-19 [facility] Comment on above: Order Comment: Order Date: 02/10/25 Order Info: 0667-1 - [facility] low sodium Performed By: #### L 500.2500 #### [facility] Laboratory [address] [place], [address] Carbon dioxide, total [Moles /volume] in Central venous bloodOrdered By: Malcolm Guzman on 02-17-2025 CO2 [Moles/Vol] 28.0 mmol/L 21.0-32.0 [facility] Chloride assayOrdered By: Jcarlos Guzman on 02-17-2025 Chloride [Moles/Vol] 93 mmol/L Low 98-108 [facility] Glomerular filtration rate ( GFR) estimation/1.73 sq m using serum, plasma, or whole bOrdered By: Malcolm Guzman on 02-17-2025 GFR/1.73 sq M.predicted among non-blacks MDRD (S/P/Bld) [Vol rate/Area] 83 mL/min/{1.73_m2} >60 [facility] Comment on above: mL/min/1.73m2 CKD-EP I Creatinine Equation (2020) Potassium measurement (mass/ volume)Ordered By: Malcolm Guzman on 02-17-2025 Potassium (Unsp spec) [Mass/Vol] 4.4 mmol/L 3.3-5.1 [facility] Serum creatinine measurement (mass/volume)Ordered By: Malcolm Guzman on 02-17-2025 Creatinine [Mass/Vol] 0.74 mg/dL 0.70-1.20 [facility] Serum glucose measurement (m ass/volume)Ordered By: Malcolm Guzman on 02-17-2025 Glucose [Mass/Vol] 94 mg/dL 70-99 [facility] Serum or plasma calcium fransisca urement (mass/volume)Ordered By: Malcolm Guzman on 02-17-2025 Calcium [Mass/Vol] 9.0 mg/dL 7.6-11.0 [facility] Serum or plasma urea nitroge n measurement (mass/volume)Ordered By: Malcolm Guzman on 02-17-2025 Urea nitrogen [Mass/Vol] 8 mg/dL 4-19 [facility] Sodium levelOrdered By: Malcolm Guzman on 02-17-2025 Sodium [Moles/Vol] 132 mmol/L Low 133-145 [facility] Anion gap in Serum or Plasma Ordered By: Malcolm Guzman on 02-09-2025 Anion gap [Moles/Vol] 12 mmol/L 5-15 [facility] BUN/creatinine ratioOrdered By: Malcolm Guzman on 02-09-2025 Urea nitrogen/Creatinine [Mass ratio] 9.5 mg/mg Low 10-20 [facility] Bilirubin, totalOrdered By: Malcolm Guzman on 02-09-2025 Bilirubin [Mass/Vol] 0.20 mg/dL 0.00-1.30 [facility] Calculated very low density lipoprotein (VLDL) cholesterol measurementOrdered By: Malcolm Guzman on 02-09-2025 Calculated very low density lipoprotein (VLDL) cholesterol measurement 20 mg/dL 5-40 [facility] Carbon dioxide, total [Moles /volume] in Central venous bloodOrdered By: Malcolm Guzman on 02-09-2025 CO2 [Moles/Vol] 24.9 mmol/L 21.0-32.0 [facility] Chloride assayOrdered By: Jcarlos Guzman on 02-09-2025 Chloride [Moles/Vol] 89 mmol/L Low 98-108 [facility] Comprehensive Metabolic Prof ilon 02-09-2025 Albumin [Mass/Vol] 4.4 g/dL Normal 3.4-4.8 [facility] Comment on above: Performed By: #### L 503.6620 #### [facility] Laboratory [address] [place], [address] Albumin/Globulin [Mass ratio] 1.6 {ratio} Normal 0.9-2.4 [facility] Comment on above: Performed By: #### L 503.6620 #### [facility] Laboratory [address] [place], [address] ALK PHOS 134 U/L High 35-104 [facility] Comment on above: Performed By: #### L 503.6620 #### [facility] Laboratory [address] [place], [address] ALT [Catalytic activity/Vol] 35 U/L Normal <=34 [facility] Comment on above: Performed By: #### L 503.6620 #### [facility] Laboratory [address] [place], [address] AST [Catalytic activity/Vol] 36 U/L High <=31 [facility] Comment on above: Performed By: #### L 503.6620 #### [facility] [address] [place], [address] Bilirubin [Mass/Vol] 0.20 mg/dL Normal 0.00-1.30 [facility] Comment on above: Performed By: #### L 503.6620 #### [facility] Laboratory [address] [place], [address] BUN/CRE 9.5 RATIO Low 10-20 [facility] Comment on above: Performed By: #### L 503.6620 #### [facility] Laboratory [address] [place], [address] Calcium [Mass/Vol] 9.2 mg/dL Normal 7.6-11.0 [facility] Comment on above: Performed By: #### L 503.20 #### [facility] Laboratory [address] [place], [address] Chloride [Moles/Vol] 89 mmol/L Low 98-108 [facility] Comment on above: Performed By: #### L 503.20 #### [facility] Laboratory [address] [place], [address] CO2 [Moles/Vol] 24.9 mmol/L Normal 21.0-32.0 [facility] Comment on above: Performed By: #### L 503.20 #### [facility] Laboratory [address] [place], [address] Creatinine [Mass/Vol] 0.92 mg/dL Normal 0.70-1.20 [facility] Comment on above: Performed By: #### L 503.20 #### [facility] Laboratory [address] [place], [address] GAP 12 Normal 5-15 [facility] Comment on above: Performed By: #### L 503.20 #### [facility] Laboratory [address] [place], [address] GFR/1.73 sq M.predicted among non-blacks MDRD (S/P/Bld) [Vol rate/Area] 63 mL/min/{1.73_m2} Normal >60 [facility] Comment on above: Result Comment: mL/m in/1.73m2 CKD-EPI Creatinine Equation (2020) Performed By: #### L 503.20 #### [facility] Laboratory [address] [place], [address] Globulin (S) [Mass/Vol] 2.8 g/dL Normal 2.2-4.2 [facility] Comment on above: Performed By: #### L 503.6620 #### [facility] Laboratory [address] [place], [address] Glucose [Mass/Vol] 92 mg/dL Normal 70-99 [facility] Comment on above: Performed By: #### L 503.6620 #### [facility] Laboratory [address] [place], [address] Potassium [Moles/Vol] 4.9 mmol/L Normal 3.3-5.1 [facility] Comment on above: Performed By: #### L 503.6620 #### [facility] Laboratory [address] [place], [address] Sodium [Moles/Vol] 126 mmol/L Low 133-145 [facility] Comment on above: Performed By: #### L 503.6620 #### [facility] Laboratory [address] [place], [address] T PROT 7.3 g/dL Normal 5.9-8.4 [facility] Comment on above: Performed By: #### L 503.6620 #### [facility] Laboratory [address] [place], [address] Urea nitrogen [Mass/Vol] 9 mg/dL Normal 4-19 [facility] Comment on above: Performed By: #### L 503.6620 #### [facility] Laboratory [address] [place], [address] Glomerular filtration rate ( GFR) estimation/1.73 sq m using serum, plasma, or whole bOrdered By: Malcolm Guzman on 02-09-2025 GFR/1.73 sq M.predicted among non-blacks MDRD (S/P/Bld) [Vol rate/Area] 63 mL/min/{1.73_m2} >60 [facility] Comment on above: mL/min/1.73m2 CKD-EP I Creatinine Equation (2020) LDL calc ser/plasOrdered By: Malcolm Guzman on 02-09-2025 Cholesterol in LDL [Mass/Vol] 110 mg/dL [facility] Comment on above: Lczogxvhqr=651-465 m g/dL & Higher Vwof=958 mg/dL or greater Laboratory - Chemistry and C hemistry - challengeOrdered By: Malcolm Guzman on 02-09-2025 AST [Catalytic activity/Vol] 36 U/L High <32 [facility] Lipid Profileon 02-09-2025 CHOL:HDL 2.98 Normal [facility] Comment on above: Performed By: #### L 503.6620 #### [facility] Laboratory [address] [place], [address] ([phone] Cholesterol [Mass/Vol] 196 mg/dL Normal <=200 [facility] Comment on above: Result Comment: Chol esterol level, Desirable <200 mg/dL Borderline high cholesterol 200-239 mg/dL High cholesterol >=240 mg/dL Recommendations of the NCEP Adult Treatment Panel for the following risk-cutoff thresholds for the [place] population. Performed By: #### L 503.6620 #### [facility] Laboratory [address] [place], [address] Cholesterol in HDL [Mass/Vol] 66 mg/dL Normal [facility] Comment on above: Result Comment: Eliza onal Cholesterol Education Program (NCEP) guidelines: <40 mg/dL: Low HDL-cholesterol (major risk factor for CHD) >= 60 mg/dL: High HDL-cholesterol (negative risk factor for CHD) HDL-cholesterol is affected by a number of factors, e.g. smoking, exercise, hormones, sex and age. Performed By: #### L 503.6620 #### [facility] Laboratory [address] [place], [address] (162) Cholesterol in LDL [Mass/Vol] 110 mg/dL Normal [facility] Comment on above: Result Comment: Bord xzsqtl=956-373 mg/dL Higher Wtap=341 mg/dL or greater Performed By: #### L 613.6420 #### [facility] Laboratory [address] [place], [place], [address] Cholesterol in VLDL [Mass/Vol] 20 mg/dL Normal 5-40 [facility] Comment on above: Performed By: #### L 503.6620 #### [facility] Laboratory [address] [place], [place], [address] Triglyceride [Mass/Vol] 100 mg/dL Normal W [facility] Comment on above: Result Comment: The drugs N-Acetylcysteine and Metamizole may falsely depress this assay. Normal range: <150 mg/dL Borderline High: 150-199 mg/dL High: 200-499 mg/dL Very High: >500 mg/dL Performed By: #### L 503.6620 #### [facility] Laboratory [address] [place], [place], [address] Potassium measurement (mass/ volume)Ordered By: Malcolm Guzman on 02-09-2025 Potassium (Unsp spec) [Mass/Vol] 4.9 mmol/L 3.3-5.1 [facility] Screening total cholesterol/ high density lipoprotein (HDL) cholesterol ratioOrdered By: Malcolm Guzman on 02-09-2025 Cholesterol.total/Choles terol in HDL [Mass ratio] 2.98 {ratio} [facility] Serum creatinine measurement (mass/volume)Ordered By: Malcolm Guzman on 02-09-2025 Creatinine [Mass/Vol] 0.92 mg/dL 0.70-1.20 [facility] Serum globulin measurementOr dered By: Malcolm Guzman on 02-09-2025 Globulin (S) [Mass/Vol] 2.8 g/dL 2.2-4.2 [facility] Serum glucose measurement (m ass/volume)Ordered By: Malcolm Guzman on 02-09-2025 Glucose [Mass/Vol] 92 mg/dL 70-99 [facility] Serum or plasma alanine gibbs otransferase (ALT) measurementOrdered By: Malcolm Guzman on 02-09-2025 ALT [Catalytic activity/Vol] 35 U/L <35 [facility] Serum or plasma albumin fransisca urement (mass/volume)Ordered By: Malcolm Guzman on 02-09-2025 Albumin [Mass/Vol] 4.4 g/dL 3.4-4.8 [facility] Serum or plasma albumin/glob ulin mass ratioOrdered By: Malcolm Guzman on 02-09-2025 Albumin/Globulin [Mass ratio] 1.6 {ratio} 0.9-2.4 [facility] Serum or plasma alkaline charan sphatase measurementOrdered By: Malcolm Guzman on 02-09-2025 ALP [Catalytic activity/Vol] 134 U/L High 35-104 [facility] Serum or plasma calcium fransisca urement (mass/volume)Ordered By: Malcolm Guzman on 02-09-2025 Calcium [Mass/Vol] 9.2 mg/dL 7.6-11.0 [facility] Serum or plasma cholesterol in HDL measurement (mass/volume)Ordered By: Malcolm Guzman on 02-09-2025 Cholesterol in HDL [Mass/Vol] 66 mg/dL >40 [facility] Comment on above: National Cholesterol Education Program (NCEP) guidelines:<40 mg/dL: Low HDL-cholesterol (major risk factor for CHD)>= 60 mg/dL: High HDL-cholesterol (negative risk factor for CHD)HDL-cholesterol is affected by a number of factors, e.g. smoking, exercise, hormones, sex and age. Serum or plasma cholesterol measurement (mass/volume)Ordered By: Malcolm Guzman on 02-09-2025 Cholesterol [Mass/Vol] 196 mg/dL <201 [facility] Comment on above: Cholesterol level, D esirable <200 mg/dLBorderline high cholesterol 200-239 mg/dLHigh cholesterol >=240 mg/dLRecommendations of the NCEP Adult Treatment Panel for the following risk-cutoff thresholds for the [place] population. Serum or plasma urea nitroge n measurement (mass/volume)Ordered By: Malcolm Guzman on 02-09-2025 Urea nitrogen [Mass/Vol] 9 mg/dL 4-19 [facility] Sodium levelOrdered By: Malcolm Guzman on 02-09-2025 Sodium [Moles/Vol] 126 mmol/L Low 133-145 [facility] Total proteinOrdered By: Jane Guzman on 02-09-2025 Protein [Mass/Vol] 7.3 g/dL 5.9-8.4 [facility] Triglycerides measurementOrd ered By: Malcolm Guzman on 02-09-2025 Triglyceride [Mass/Vol] 100 mg/dL <199 [address] [facility] Comment on above: The drugs N-Acetylcy steine and Metamizole may falsely depress this assay. Normal range: <150 mg/dLBorderline High: 150-199 mg/dLHigh: 200-499 mg/dLVery High: >500 mg/dL Urine Cultureon 02-07-2025 [facility] Presumptive E. coli [place] Count >100,000 Presumptive E. coli: REACTION Ampicillin Islt OSWALDO <=2 Ampicillin+Sulbac Islt OSWALDO <=2 S Cefepime Islt OSWALDO <=0.12 S cefTRIAXone Islt OSWALDO <=0.25 S Ciprofloxacin Islt OSWALDO <=0.06 S B-Lactamase Extended Susc Islt NEG Gentamicin Islt OSWALDO <=1 S levoFLOXacin Islt OSWALDO <=0.12 S Meropenem Islt OSWALDO <=0.25 S Nitrofurantoin Islt OSWALDO <=16 S Pip+Tazo Islt OSWALDO <=4 S TMP SMX Islt OSWALDO <=20 S Normal [facility] Comment on above: Performed By: #### L 100.0100, L501.5425, L500.2500 #### [facility] Laboratory [address] [place], [place], [address] Urine cultureOrdered By: Jane Guzman on 02-05-2025 Bacteria identified Cx Nom (U) Presumptive E. coli Abnormal [facility] Lumbar Spine 2 or 3 Viewson 01-06-2025 Lumbar Spine 2 or 3 Views [facility] Imaging Services [address] [place] [address] Lumbar Spine 2 or 3 Views MR#: [id number] Acct: [id number] Name: ALEXY BRANNON Rep #: [id number] : 1945 F 79 From: Lise marinelli MD PCP: Dr. Malcolm Guzman MD Status: REG CLI Study: Lumbar Spine 2 or 3 Views Date of Exam: Exam# [id number] Ordering Dr: Choco Wu MD PROCEDURE: LUMBAR SPINE 2 OR 3 VIEWS 01/06/2025 REASON FOR EXAM: TRAUMA TECHNIQUE: 2 view(s) of the lumbar spine FINDINGS: The bones are osteoporotic. There is approximately 50% loss of height of the body of L1 mostly due to old compression fracture. Normal lumbar lordosis. There is mild rightward scoliosis with its angle tip at the level of L1. T12-L1: Normal disc height. Normal endplates. Normal alignment of the vertebrae. L1-2: Normal disc height. Normal endplates. Normal alignment of the vertebrae. L2-3: Normal disc height. Normal endplates. Normal alignment of the vertebrae. L3-4: Normal disc height. Normal endplates. Normal alignment of the vertebrae. L4-5: There is narrowing of the intervertebral disc with sclerosis of the vertebral endplates. L5-S1: Normal disc height. Normal endplates. Normal alignment of the vertebrae. The soft tissue structures are unremarkable. RAD/Lumbar Spine 2 or 3 Views IMPRESSION: Osteoporosis. Scoliosis. 50% loss of height of the body of L1 probably due to old compression fracture. Please correlate clinically. MRI would be helpful if clinically warranted. L4-L5 degenerative disc disease. Reading Location: [place] [address] CC: Dr. Choco Wu MD; Dr. Malcolm Guzman MD Program Or Project Administrator: Signed Normal [facility] Cardiology Visit Reporton Cardiology Visit Report [facility] [address] [place] [address] OFFICE VISIT Date of Service: 12/09/24 MR#: [id number] Acct: [id number] Name: ALEXY BRANNON Rep #: [id number] : 1945 Provider: Dr. Karan Persaud MD Age/Sex: 79/F [place] [facility] [place]: Signed HPI HPI History of Present Illness Details: This is a 79-year-old white female who presents today for outpatient cardiovascular follow-up based upon a history of underlying Takotsubo syndrome, CAD-nonobstructive, hyperlipidemia, and hypertension. She denies chest, arm, jaw, or neck discomfort. She denies palpitations. She states mild, intermittent, bilateral lower extremity edema. She denies claudication. She denies shortness of breath with activity, shortness of breath at rest, orthopnea, or PND. She denies chronic cough. She denies significant, sudden weight gain. She states occasional lightheadedness. She denies dizziness, near-syncope, or syncope. She denies blood in urine, blood in stool, or epistaxis. He denies fever with chills. She denies myalgia. She denies fatigue and states this is improved. Her exercise level has remained stable and improving. Intake Vital Signs 10/16/23 10:09 07/15/24 08:34 12/09/24 10:54 Height 5 ft 4.5 in 5 ft 4 in 5 ft 4 in Weight: 114 lb BMI 19.5 BP 158/84 H Blood Pressure Location Lt brachial Position Sitting Respiration 16 Pulse 72 Pulse Source Monitor Intake Visit Reasons: 1 Y FU [employer] Required: No Accompanied by: Self Is patient in pain?: No Allergies umeclidinium (From Anoro Ellipta) Adverse Reaction (Intermediate, Verified 12/09/24 10:56) heart racing, high bp, anxious vilanterol (From Anoro Ellipta) Adverse Reaction (Intermediate, Verified 12/09/24 10:56) heart racing, high bp, anxious codeine Adverse Reaction (Verified 12/09/24 10:56) HEART RACES Corticosteroids (Glucocorticoids) Adverse Reaction (Verified 12/09/24 10:56) high blood pressure indomethacin (From Indocin) Adverse Reaction (Verified 12/09/24 10:56) Abd cramps/diarrhea indomethacin sodium (From Indocin) Adverse Reaction (Verified 12/09/24 10:56) Abd cramps/diarrhea levofloxacin (From Levaquin) Adverse Reaction (Verified 12/09/24 10:56) INCREASED BLOOD PRESSURE nitrofurantoin (From Macrobid) Adverse Reaction (Verified 12/09/24 10:56) Nausea/Vom/Diarrhea propoxyphene napsylate (From Darvocet-N 100) Adverse Reaction (Verified 12/09/24 10:56) PASSES OUT Medications ???Medication ???Instructions ???Recorded ???Confirmed ???Type albuterol sulfate 90 mcg/actuation 1 - 2 puff inhalation Q6H PRN RI N 05/30/17 12/09/24 Rx aerosol inhaler Wheezing ##1 sucralfate 1 gram tablet 1 g PO QHS PRN reflux 10/29/17 History nitroglycerin 0.4 mg sublingual 0.4 mg sublingual Q5M PRN Chest 12/09/24 History tablet Pain multivitamin 1 tab PO DAILY 05/18/21 12/09/24 H istory calcium 500 mg-vitamin D3 1,000 3 tab PO QPM supplement 05/31/22 0 12/09/24 History unit-vitamin K 40 mcg chewable tablet paroxetine HCl 10 mg tablet 5 mg PO DAILY 05/31/22 12/09/24 Hi story metoprolol succinate 50 mg 50 mg PO DAILY blood 02/13/2411/22 Rx tablet,extended release 24 hr pressure/heart #90 tabs meloxicam 15 mg tablet 15 mg PO QHS 06/21/24 12/09/24 His tory acetaminophen 500 mg tablet 1,000 mg (2 x 500 mg) PO Q8 #0 tab s 06/22/24 12/09/24 Rx clonidine HCl 0.1 mg tablet 0.1 mg PO TID PRN SBP > 175 #20 12/09/24 Rx tabs pravastatin 80 mg tablet 80 mg PO QHS for cholesterol #90 1 09/24/23 12/09/24 Rx TABLETS pantoprazole 40 mg tablet,delayed 40 mg PO DAILY for acid reflux #9 0 10/08/24 12/09/24 Rx release TABLETS amlodipine 5 mg tablet 5 mg PO DAILY #90 tabs 12/09/24 Rx lidocaine 5 % topical patch 2 patch topical DAILY PRN 12/09/24 12/09/24 History losartan 50 mg tablet 50 mg PO QDAY #90 tabs 12/09/24 Rx Have you fallen in the past year?: No PFSH Medical History Osteoarthritis Osteoporosis Kyphoscoliosis Depression Hyponatremia Pneumonia Hypertension Headache Cataracts, bilateral Cancer UTI (urinary tract infection) Bone fracture Back problem Arthritis Anemia Seasonal allergies GERD (gastroesophageal reflux disease) Myocardial infarct CAD (coronary artery disease) Pulmonary nodule Bronchitis Old myocardial infarction COPD (chronic obstructive pulmonary disease) Hyperlipidemia History of non-ST elevation myocardial infarction (NSTEMI) Takotsubo cardiomyopathy Atherosclerotic heart disease of [place] coronary artery without angina pectoris Tongue cancer History of coronary vasospasm Osteoporosis Benign essential HTN Asthma Surgical H (more content not included)... Normal [facility] Absolute lymphocyte countOrd ered By: Malcolm Guzman on 10-30-2024 Lymphocytes Auto (Unsp spec) [#/Vol] 1.13 10*3/uL 0.83-4.51 [facility] Absolute neutrophil countOrd ered By: Malcolm Guzman on 10-30-2024 Neutrophils (Bld) [#/Vol] 3.4 10*3/uL 2.0-7.7 [facility] Automated lymphocyte count a s percentage of total leukocytesOrdered By: Malcolm Guzman on 10-30-2024 Lymphocytes/100 WBC Auto (Unsp spec) 22.4 % 19-41 [facility] Basophil percentageOrdered B y: Malcolm Guzman on 10-30-2024 Basophils/100 WBC (Bld) 0.6 % 0-1 W [facility] CBC W/Diff, Automatedon Absolute Lymph 1.13 X10 3/uL Normal 0.83-4.51 [facility] Comment on above: Order Comment: Order Date: 10/29/24Order Info: 0184-1 - CBCD Performed By: #### L 503.6620 #### [facility] Laboratory [address] [place], [place], [id number] ([address] Absolute Neut 3.4 X10 3/uL Normal 2.0-7.7 [facility] Comment on above: Order Comment: Order Date: 10/29/24Order Info: 0184-1 - CBCD Performed By: #### L [id number] #### [facility] Laboratory [address] [place], [address] Basophils/100 WBC (Bld) 0.6 % Normal 0-1 W [facility] Comment on above: Order Comment: Order Date: 10/29/24Order Info: 0184-1 - CBCD Performed By: #### L [id number] #### [facility] Laboratory [address] [place], [address] Eosinophils/100 WBC (Bld) 0.8 % Normal 0-5 [facility] Comment on above: Order Comment: Order Date: 10/29/24Order Info: 018- - CBCD Performed By: #### L [id number] #### [facility] Laboratory [address] [place], [address] Erythrocyte distribution width (RBC) [Ratio] 14.2 % Normal 11.6-14.6 [facility] Comment on above: Order Comment: Order Date: 10/29/24Order Info: 018- - CBCD Performed By: #### L [id number] #### [facility] Laboratory [address] [place], [address] Hematocrit (Bld) [Volume fraction] 30.2 % Low 37-47 [facility] Comment on above: Order Comment: Order Date: 10/29/24Order Info: 018- - CBCD Performed By: #### L [id number] #### [facility] [address] [place], [address] Hemoglobin (Bld) [Mass/Vol] 11.1 g/dL Low 12.0-15.0 [facility] Comment on above: Order Comment: Order Date: 10/29/24Order Info: 018- - CBCD Performed By: #### L [id number] #### [facility] [address] [place], [address] IG% 0.400 Normal 0.0-0.9 [facility] Comment on above: Order Comment: Order Date: 10/29/24Order Info: 0184-1 - CBCD Result Comment: IG% - Immature Granulocytes (promyelocytes, myelocytes and metamyelocytes) > 1% indicates that a LEFT SHIFT is Present. Performed By: #### L 503.6620 #### [facility] [address] [place], [address] Lymphocytes/100 WBC (Bld) 22.4 % Normal 19-41 [facility] Comment on above: Order Comment: Order Date: 10/29/24Order Info: 0184-1 - CBCD Performed By: #### L [id number] #### [facility] [address] [place], [address] MCH (RBC) [Entitic mass] 36.0 pg High 27.0-32.0 [facility] Comment on above: Order Comment: Order Date: 10/29/24Order Info: 0184-1 - CBCD Performed By: #### L [id number] #### [facility] [address] [place], [address] MCHC (RBC) [Mass/Vol] 36.8 g/dL High 32-36 [facility] Comment on above: Order Comment: Order Date: 10/29/24Order Info: 0184- - CBCD Performed By: #### L [id number] #### [facility] [address] [place], [address] MCV (RBC) [Entitic vol] 98.1 fL Normal 81-99 [facility] Comment on above: Order Comment: Order Date: 10/29/24Order Info: 0184-1 - CBCD Performed By: #### L [id number] #### [facility] [address] [place], [address] Monocytes/100 WBC (Bld) 9.3 % Normal 0-10 W [facility] Comment on above: Order Comment: Order Date: 10/29/24Order Info: 0184-1 - CBCD Performed By: #### L [id number] #### [facility] [address] [place], [address] Neutrophils/100 WBC (Bld) 66.5 % Normal 47-70 [facility] Comment on above: Order Comment: Order Date: 10/29/24Order Info: 0184-1 - CBCD Performed By: #### L [id number] #### [facility] Laboratory [address] [place], [address] Nucleated RBC (Bld) [#/Vol] 0 10*3/uL Normal 0-5 [facility] Comment on above: Order Comment: Order Date: 10/29/24Order Info: 0184-1 - CBCD Performed By: #### L [id number] #### [facility] Laboratory [address] [place], [address] Platelet mean volume (Bld) [Entitic vol] 8.2 fL Normal 6.2-12.0 [facility] Comment on above: Order Comment: Order Date: 10/29/24Order Info: 0184-1 - CBCD Performed By: #### L [id number] #### [facility] [address] [place], [address] Platelets (Bld) [#/Vol] 382 10*3/uL Normal 150-450 [facility] Comment on above: Order Comment: Order Date: 10/29/24Order Info: 0184-1 - CBCD Performed By: #### L [id number] #### [facility] Laboratory [address] [place], [address] RBC (Bld) [#/Vol] 3.08 10*6/uL Low 4.2-5.4 [facility] Comment on above: Order Comment: Order Date: 10/29/24Order Info: 0184-1 - CBCD Performed By: #### L [id number] #### [facility] [address] [place], [address] RDW SD 48.5 fl High 35.1-43.9 [facility] Comment on above: Order Comment: Order Date: 10/29/24Order Info: 0184-1 - CBCD Performed By: #### L [id number] #### [facility] Laboratory [address] [place], [place], [id number] WBC (Bld) [#/Vol] 5.1 10*3/uL Normal 4.4-11.0 [facility] Comment on above: Order Comment: Order Date: 10/29/24Order Info: 0184-1 - CBCD Performed By: #### L [id number] #### [facility] [address] [place], [place], [address] Eosinophil percentageOrdered By: Malcolm Guzman on 10-30-2024 Eosinophils/100 WBC (Bld) 0.8 % 0-5 [facility] Erythrocyte distribution wid th (RBC) [Ratio]Ordered By: Malcolm Guzman on 10-30-2024 Erythrocyte distribution width (RBC) [Entitic vol] 48.5 fL High 35.1-43.9 [facility] Erythrocyte distribution wid th ratioOrdered By: Malcolm Guzman on 10-30-2024 Erythrocyte distribution width (RBC) [Ratio] 14.2 % 11.6-14.6 [facility] Erythrocyte distribution wid th standard deviationOrdered By: Malcolm Guzman on 10-30-2024 Erythrocyte distribution width (RBC) [Ratio] 48.5 fl High 35.1-43.9 [facility] Hematocrit Auto (Bld) [Volum e fraction]Ordered By: Malcolm Guzman on 10-30-2024 Hematocrit (Bld) [Volume fraction] 30.2 % Low 37-47 [facility] Hemoglobin measurementOrdere d By: Malcolm Guzman on 10-30-2024 Hemoglobin (Bld) [Mass/Vol] 11.1 g/dL Low 12.0-15.0 [facility] Immature granulocytes/100 WB C Auto (Bld)Ordered By: Malcolm Guzman on 10-30-2024 Immature granulocytes/100 WBC (Bld) 0.400 % 0.0-0.9 [facility] Comment on above: IG% - Immature Granu locytes (promyelocytes, myelocytes and metamyelocytes) > 1% indicates that a LEFT SHIFT is Present. Lymphocytes Auto (Unsp spec) [#/Vol]Ordered By: Malcolm Guzman on 10-30-2024 Lymphocytes (Bld) [#/Vol] 1.13 10*3/uL 0.83-4.51 [facility] Lymphocytes/100 WBC Auto (Un sp spec)Ordered By: Malcolm Guzman on 10-30-2024 Lymphocytes/100 WBC (Bld) 22.4 % 19-41 [facility] MCV (mean corpuscular volume ) determinationOrdered By: Malcolm Guzman on 10-30-2024 MCV (RBC) [Entitic vol] 98.1 fL 81-99 [facility] Mean corpuscular hemoglobin (MCH) determinationOrdered By: Malcolm Guzman on 10-30-2024 MCH (RBC) [Entitic mass] 36.0 pg High 27.0-32.0 [facility] Mean corpuscular hemoglobin concentration (MCHC) determinationOrdered By: Malcolm Guzman on 10-30-2024 MCHC (RBC) [Mass/Vol] 36.8 g/dL High 32-36 [facility] Mean platelet volume determi nationOrdered By: Malcolm Guzman on 10-30-2024 Platelet mean volume (Bld) [Entitic vol] 8.2 fL 6.2-12.0 [facility] Monocyte percentageOrdered B y: Malcolm Guzman on 10-30-2024 Monocytes/100 WBC (Bld) 9.3 % 0-10 W [facility] Neutrophil percentageOrdered By: Malcolm Guzman on 10-30-2024 Neutrophils/100 WBC (Bld) 66.5 % 47-70 [facility] Nucleated red blood cell per centageOrdered By: Malcolm Guzman on 10-30-2024 Nucleated RBC/100 WBC (Bld) [Ratio] 0 % 0-5 [facility] Platelet countOrdered By: Jcarlos Guzman on 10-30-2024 Platelets (Bld) [#/Vol] 382 10*3/uL 150-450 [facility] RBC Auto (Bld) [#/Vol]Ordere d By: Malcolm Guzman on 10-30-2024 RBC (Bld) [#/Vol] 3.08 10*6/uL Low 4.2-5.4 [facility] White blood cell (WBC) count Ordered By: Malcolm Guzman on 02-06-2025 WBC (Bld) [#/Vol] 5.1 10*3/uL 4.4-11.0 [facility] ENTERIC PATHOGEN PANEL STOOL on 10-28-2024 EP PANEL Order Date: 10/27/24 Order Info: 625-4 - CUST Order Info: 0038-2 - C DIFF CAMPYLOBACTER Not Detected Norovirus Not Detected Rotavirus Not Detected Salmonella Not Detected Shiga Toxin Not Detected Shigella sp. Not Detected VIBRIO Not Detected Yersinia Not Detected Normal [facility] Comment on above: Performed By: #### L 100.0100, L501.5425, L500.2500 #### [facility] Laboratory [address] [place], [place], [id number] Stool enteric pathogen panel by probe and target amplification methodOrdered By: Malcolm Guzman on 10-28-[address] [facility] Urine Cultureon 10-22-2024 [facility] Escherichia coli [place] Count 50,000-80,000 Escherichia coli: REACTION Ampicillin Islt OSWALDO <=2 Ampicillin+Sulbac Islt OSWALDO <=2 S Cefepime Islt OSWALDO <=0.12 S cefTRIAXone Islt OSWALDO <=0.25 S Ciprofloxacin Islt OSWALDO <=0.06 S B-Lactamase Extended Susc Islt NEG Gentamicin Islt OSWALDO <=1 S levoFLOXacin Islt OSWALDO <=0.12 S Meropenem Islt OSWALDO <=0.25 S Nitrofurantoin Islt OSWALDO <=16 S Pip+Tazo Islt OSWALDO <=4 S TMP SMX Islt OSWALDO <=20 S Normal [facility] Comment on above: Performed By: #### L 100.0100, L501.5425, L500.2500 #### [facility] Laboratory [address] [place], [place], [id number] Urine cultureOrdered By: Jane Guzman on 10-20-2024 Bacteria identified Cx Nom (U) Escherichia coli Abnormal [facility] Pulmonary Visit Reporton Pulmonary Visit Report [facility] [place] [address] [place], [place] [address] OFFICE VISIT Date of Service: 07/15/24 MR#: [id number] Acct: [id number] Name: ALEXY BRANNON Rep #: [id number] : 1945 Provider: ADRIANO Ambrosio Age/Sex: 78/F Location: [facility] Status: Signed Assessment and Plan Assessment and Plan (1) Shortness of breath: Status: Chronic Plan: She is asymptomatic at this time. No additional testing at this time. No need for maintenance medications, nor rescue inhaler. Follow-up as needed. HPI 3 M FU Chief Complaint: Symptoms after stopping Stiolto HPI Comments Details: This patient presents to the office today for follow-up of her COPD. She is ambulatory and currently on room air. She has not recently been seen in the ED or urgent care for any respiratory illness. She has not required any antibiotics or prednisone for any breathing problems. She is not currently on any maintenance inhalers. She is not using albuterol. The patient reports that shortly after completely stopping Stiolto her blood pressure returned to normal. At this time she denies any shortness of breath whatsoever. She denies any cough, sputum production or hemoptysis. She denies any wheezing, chest tightness, chest pain or palpitations. She also denies any fever, chills or body aches. If you recall, she is a lifelong never smoker. Intake Vital Signs 04/09/24 07:37 06/30/24 12:13 07/15/24 08:34 Height 5 ft 4.5 in 5 ft 4 in 5 ft 4 in Weight: 114 lb BMI 19.5 BP 136/79 H Blood Pressure Location Lt brachial Position Sitting Respiration 20 H Pulse 77 Pulse Source Monitor Temp 97.3 F L Temperature Source Temporal Artery Pulse Oximetry (%) 95 Oxygen Delivery Method room air Intake Visit Reasons: 3 M FU Chief Complaint: hyponatremia, osteoporosis [employer] Systems Required: No Accompanied by: Self Allergies umeclidinium (From Anoro Ellipta) Adverse Reaction (Intermediate, Verified 07/15/24 14:15) heart racing, high bp, anxious vilanterol (From Anoro Ellipta) Adverse Reaction (Intermediate, Verified 07/15/24 14:15) heart racing, high bp, anxious codeine Adverse Reaction (Verified 07/15/24 14:15) HEART RACES Corticosteroids (Glucocorticoids) Adverse Reaction (Verified 07/15/24 14:15) high blood pressure indomethacin (From Indocin) Adverse Reaction (Verified 07/15/24 14:15) Abd cramps/diarrhea indomethacin sodium (From Indocin) Adverse Reaction (Verified 07/15/24 14:15) Abd cramps/diarrhea levofloxacin (From Levaquin) Adverse Reaction (Verified 07/15/24 14:15) INCREASED BLOOD PRESSURE nitrofurantoin (From Macrobid) Adverse Reaction (Verified 07/15/24 14:15) Nausea/Vom/Diarrhea propoxyphene napsylate (From Darvocet-N 100) Adverse Reaction (Verified 07/15/24 14:15) PASSES OUT Medications ???Medication ???Instructions ???Recorded ???Confirmed ???Type albuterol sulfate 90 mcg/actuation 1 - 2 puff inhalation Q6H PRN PRN 05/30/17 07/15/24 Rx aerosol inhaler Wheezing ##1 sucralfate 1 gram tablet 1 g PO QHS PRN reflux 10/29/17 07/15/24 History nitroglycerin 0.4 mg sublingual 0.4 mg sublingual Q5M PRN Chest 07/16/19 07/15/24 History tablet Pain multivitamin 1 tab PO DAILY 05/18/21 07/15/24 History lorazepam 0.5 mg tablet 0.5 mg PO DAILY PRN PRN Anxiety 08/09/21 07/15/24 History calcium 500 mg-vitamin D3 1,000 3 tab PO QPM supplement 05/31/22 07/15/24 History unit-vitamin K 40 mcg chewable tablet paroxetine HCl 10 mg tablet 5 mg PO DAILY 05/31/22 07/15/24 History pravastatin 80 mg tablet See Rx Instructions .Route 07/31/23 07/15/24 Rx .COMPLEX #90 tabs pantoprazole 40 mg tablet,delayed 40 mg PO DAILY for acid reflux #90 12/05/23 07/15/24 Rx release TABLETS metoprolol succinate 50 mg 50 mg PO DAILY blood 02/13/24 07/15/24 Rx tablet,extended release 24 hr pressure/heart #90 tabs meloxicam 15 mg tablet 15 mg PO QHS 06/21/24 07/15/24 History acetaminophen 500 mg tablet 1,000 mg (2 x 500 mg) PO Q8 #0 tabs 06/22/24 07/15/24 Rx lidocaine 5 % topical patch 2 patch topical DAILY #15 ea 06/22/24 07/15/24 Rx oxycodone 5 mg tablet 5 mg PO Q6H PRN PRN Pain Score 06/22/24 07/15/24 Rx 6-10 7 days #28 tabs clonidine HCl 0.1 mg tablet 0.1 mg PO TID PRN SBP > 175 #20 06/27/24 07/15/24 Rx tabs amlodipine 10 mg tablet (Norvasc) 10 mg PO DAILY #30 tabs 06/30/24 07/15/24 Rx Have you fallen in the past year?: No [facility] Medical History (Reviewed 07/15/24 @ 14:22 by Pricilla Ambrosio PARTS COUNTER SPECIALIST, PARTS COUNTER SPECIALIST-C) Osteoarthritis Osteoporosis Kyphoscoliosis Depression Hyponatremia Pneumonia Hypertension Headache Cataracts, bilateral Cancer UTI (urinary tract infection) Bone fracture Back problem Arthritis Anemia Seasonal allergies GERD (gastroesophageal ref (more content not included)... Normal [facility] 12 Lead EKGon 06-30-2024 12 Lead EKG [facility] Cardiovascular Services [address] [place] [address] 12 Lead EKG 06/30/24 1332 MR#: [id number] Acct: [id number] Name: ALEXY BRANNON Rep #: [id number] : 1945 78 From: Aguila Barbosa MD Attending Dr: Status: DEP ER Ordering Dr: Jack Lucas DO Date: 4 Location: ED Sex: F C Admitted: Test Reason : WEAKNESS Blood Pressure : / mmHG Vent. Rate : 079 BPM Atrial Rate : 079 BPM P-R Int : 154 ms QRS Dur : 070 ms QT Int : 370 ms P-R-T Axes : 057 018 061 degrees QTc Int : 424 ms Normal sinus rhythm Minimal voltage criteria for LVH, may be normal variant ( Sokolow-Milligan ) Cannot rule out Septal infarct , age undetermined Abnormal ECG Confirmed by Aguila Barbosa ([id number]), market editor CHATA BALBUENA ([id number]) on 07/02/2024 5:59:16 AM Referred By: Confirmed By:Aguila Barbosa 07/02/24 0559 Date Aguila Barbosa MD CC: Dr. Christian Lucas DO; Dr. Malcolm Guzman MD; Dr. Stef Kumar MD Signed Normal [facility] BNP,B-Type NATRIURETIC PEPTI Rojelio 06-30-2024 Natriuretic peptide B (Bld) [Mass/Vol] 55.4 pg/mL Normal 0-100 [facility] Comment on above: Performed By: #### L 503.6620 #### [facility] Laboratory [address] [place], [address] Basic Metabolic Profile (BMP )on 06-30-2024 BUN/CRE 13.7 RATIO Normal 10-20 [facility] Comment on above: Order Comment: 1 Y Performed By: #### L 100.0100, L501.5425, L500.2500 #### [facility] Laboratory [address] [place], [address] CA,Total 9.1 mg/dL Normal 8.5-10.1 [facility] Comment on above: Order Comment: 1 Y Performed By: #### L 100.0100, L501.5425, L500.2500 #### [facility] Laboratory [address] [place], [address] Chloride [Moles/Vol] 93 mmol/L Low 98-107 [facility] Comment on above: Order Comment: 1 Y Performed By: #### L 100.0100, L501.5425, L500.2500 #### [facility] Laboratory [address] [place], [address] CO2 [Moles/Vol] 29.0 mmol/L Normal 21.0-32.0 [facility] Comment on above: Order Comment: 1 Y Performed By: #### L 100.0100, L501.5425, L500.2500 #### [facility] Laboratory [address] [place], [address] Creatinine [Mass/Vol] 0.73 mg/dL Normal 0.55-1.02 [facility] Comment on above: Order Comment: 1 Y Result Comment: The validity of the calculated GFR GFRAA in patients over 70 years has not been determined. Clinical correlation is essential. Performed By: #### L 100.0100, L501.5425, L500.2500 #### [facility] [address] [place], [address] ECRCL 46.81 ml/min Normal [facility] Comment on above: Order Comment: 1 Y Performed By: #### L 100.0100, L501.5425, L500.2500 #### [facility] [address] [place], [address] EST GFR - AA 99 mL/min Normal >60 [facility] Comment on above: Order Comment: 1 Y Result Comment: Afri can [place] GFR Calc Performed By: #### L 100.0100, L501.5425, L500.2500 #### [facility] [address] [place], [address] GAP 9 Normal 5-15 [facility] Comment on above: Order Comment: 1 Y Performed By: #### L 100.0100, L501.5425, L500.2500 #### [facility] [address] [place], [address] GFR/1.73 sq M.predicted among non-blacks MDRD (S/P/Bld) [Vol rate/Area] 82 mL/min/{1.73_m2} Normal >60 [facility] Comment on above: Order Comment: 1 Y Result Comment: Non- GFR Calc Performed By: #### L 100.0100, L501.5425, L500.2500 #### [facility] [address] [place], [address] Glucose [Mass/Vol] 137 mg/dL High 74-106 [facility] Comment on above: Order Comment: 1 Y Result Comment: Fast ing Glucose result greater than or equal to 126 mg/dL suggests DIABETES MELLITUS per A.D.A. criteria. Performed By: #### L 100.0100, L501.5425, L500.2500 #### [facility] [address] [place], [address] Potassium [Moles/Vol] 3.6 mmol/L Normal 3.5-5.1 [facility] Comment on above: Order Comment: 1 Y Performed By: #### L 100.0100, L501.5425, L500.2500 #### [facility] [address] [place], [address] Sodium [Moles/Vol] 132 mmol/L Low 136-145 [facility] Comment on above: Order Comment: 1 Y Performed By: #### L 100.0100, L501.5425, L500.2500 #### [facility] [address] [place], [address] Urea nitrogen [Mass/Vol] 10 mg/dL Normal 7-18 [facility] Comment on above: Order Comment: 1 Y Performed By: #### L 100.0100, L501.5425, L500.2500 #### [facility] [address] [place], [address] CBC W/Diff, Automatedon 10-0 -2023 Absolute Lymph 1.44 X10 3/uL Normal 0.83-4.51 [facility] Comment on above: Performed By: #### L 100.0100, L501.5425, L500.2500 #### [facility] [address] [place], [address] Absolute Neut 6.1 X10 3/uL Normal 2.0-7.7 [facility] Comment on above: Performed By: #### L 100.0100, L501.5425, L500.2500 #### [facility] [address] [place], [address] Basophils/100 WBC (Bld) 0.4 % Normal 0-1 [facility] Comment on above: Performed By: #### L 100.0100, L501.5425, L500.2500 #### [facility] [address] [place], [address] Eosinophils/100 WBC (Bld) 0.4 % Normal 0-5 [facility] Comment on above: Performed By: #### L 100.0100, L501.5425, L500.2500 #### [facility] [address] [place], [address] Erythrocyte distribution width (RBC) [Ratio] 14.0 % Normal 11.6-14.6 [facility] Comment on above: Performed By: #### L 100.0100, L501.5425, L500.2500 #### [facility] [address] [place], [address] Hematocrit (Bld) [Volume fraction] 37.9 % Normal 37-47 [facility] Comment on above: Performed By: #### L 100.0100, L501.5425, L500.2500 #### [facility] [address] [place], [address] Hemoglobin (Bld) [Mass/Vol] 12.1 g/dL Normal 12.0-15.0 [facility] Comment on above: Performed By: #### L 100.0100, L501.5425, L500.2500 #### [facility] [address] [place], [address] IG% 0.500 Normal 0.0-0.9 [facility] Comment on above: Result Comment: IG% - Immature Granulocytes (promyelocytes, myelocytes and metamyelocytes) > 1% indicates that a LEFT SHIFT is Present. Performed By: #### L 100.0100, L501.5425, L500.2500 #### [facility] [address] [place], [address] Lymphocytes/100 WBC (Bld) 17.6 % Low 19-41 [facility] Comment on above: Performed By: #### L 100.0100, L501.5425, L500.2500 #### [facility] [address] [place], [address] MCH (RBC) [Entitic mass] 29.6 pg Normal 27.0-32.0 [facility] Comment on above: Performed By: #### L 100.0100, L501.5425, L500.2500 #### [facility] [address] [place], [address] MCHC (RBC) [Mass/Vol] 31.9 g/dL Low 32-36 [facility] Comment on above: Performed By: #### L 100.0100, L501.5425, L500.2500 #### [facility] [address] [place], [address] MCV (RBC) [Entitic vol] 92.7 fL Normal 81-99 [facility] Comment on above: Performed By: #### L 100.0100, L501.5425, L500.2500 #### [facility] [address] [place], [address] Monocytes/100 WBC (Bld) 7.2 % Normal 0-10 [facility] Comment on above: Performed By: #### L 100.0100, L501.5425, L500.2500 #### [facility] [address] [place], [address] Neutrophils/100 WBC (Bld) 73.9 % High 47-70 [facility] Comment on above: Performed By: #### L 100.0100, L501.5425, L500.2500 #### [facility] [address] [place], [address] Nucleated RBC (Bld) [#/Vol] 0 10*3/uL Normal 0-5 [facility] Comment on above: Performed By: #### L 100.0100, L501.5425, L500.2500 #### [facility] [address] [place], [address] Platelet mean volume (Bld) [Entitic vol] 8.3 fL Normal 6.2-12.0 [facility] Comment on above: Performed By: #### L 100.0100, L501.5425, L500.2500 #### [facility] [address] [place], [address] Platelets (Bld) [#/Vol] 492 10*3/uL High 150-450 [facility] Comment on above: Performed By: #### L 100.0100, L501.5425, L500.2500 #### [facility] [address] [place], [address] RBC (Bld) [#/Vol] 4.09 10*6/uL Low 4.2-5.4 [facility] Comment on above: Performed By: #### L 100.0100, L501.5425, L500.2500 #### [facility] [address] [place], [address] RDW SD 47.0 fl High 35.1-43.9 [facility] Comment on above: Performed By: #### L 100.0100, L501.5425, L500.2500 #### [facility] [address] [place], [address] WBC (Bld) [#/Vol] 8.2 10*3/uL Normal 4.4-11.0 [facility] Comment on above: Performed By: #### L 100.0100, L501.5425, L500.2500 #### [facility] [address] [place], [address] Chest 1 View (Portable)on Chest 1 View (Portable) [facility] Imaging Services [address] [place] [address] Chest 1 View (Portable) MR#: [id number] Acct: [id number] Name: ALEXY BRANNON Rep #: [id number] : 1945 F 78 From: Klever oleary MD PCP: Dr. Malcolm Guzman MD Status: REG ER Study: Chest 1 View (Portable) Date of Exam: 06/30/24 Exam# [id number] Ordering Dr: Jack Lucas DO -[id number] STUDY: X-RAY CHEST REASON FOR EXAM: Female, 78 years old. Chest pain TECHNIQUE: Single AP portable view of the chest. COMPARISON: Comparison is made with prior study dated November 18, 2019. FINDINGS: Stable elevation of the left hemidiaphragm. Stable mild increased linear markings at the left lung base suggestive of scarring. Stable blunting of the left costophrenic angle. Normal size heart. Normal mediastinum and елена. Normal visualized pulmonary arteries. There is atherosclerotic calcification of the aortic arch with tortuosity. There are diffuse degenerative changes of the visualized thoracic spine. Prior vertebroplasty of a mid dorsal vertebrae. Normal visualized ribs, clavicles, and shoulders. There is no demonstrated abnormality of the visualized soft tissue structures of the upper abdomen. RAD/Chest 1 View (Portable) IMPRESSION: Stable examination. Elevation of the left hemidiaphragm with findings suggest mild scarring at the left lung base. Electronically Signed: Klever Law MD at 14:11 EDT , CC: Dr. Christian Lucas DO; Dr. Malcolm Guzman MD Program Or Project Administrator: Signed Normal [facility] Emergency Department Summary on 06-30-2024 Emergency Department Summary [facility] Medical Records Department [address] [place] [address] Emergency Department Summary 06/30/24 MR#: [id number] Acct: [id number] Name: ALEXY BRANNON Rep #: [id number] : 1945 78 From: Christian Lucas DO PCP: Dr. Malcolm Guzman MD Status:REG ER Location: ED HPI History of Present Illness Chief Complaint: Chest Pain Narrative Narrative: Chief complaint and HPI: Hypertension. 78-year-old female with history of HTN, recent compression fractures presents for evaluation of hypertension and resolved chest pain. Patient states on Sunday she received a steroid injection into her back and since then has been having elevated blood pressure. She was seen in our emergency department for this on Sunday in which she had an unremarkable cardiac workup and was discharged home on clonidine TID for blood pressure greater than 175. Patient states she woke up this morning with chest pain. She states she checked her blood pressure and it was in the 200s. Patient states she took a clonidine without improvement which is why she presents here today. Chest pain has since resolved. She states she had some shortness of breath at that time but that is resolved as well. She denies any headache, lightheadedness, vision changes. Denies any fever, chills, abdominal pain, nausea, vomiting. Review of systems: See HPI Medications: As listed on the chart Allergies: As listed on the chart PFSH: Per chart Vital signs: As listed on the chart. Reviewed. Physical exam: Gen: A O x3, NAD Head: Normocephalic, atraumatic Eyes: No sclera icterus, conjunctiva clear ENT: Moist mucous membranes Neck: Trachea midline, No JVD CV: RRR, no murmurs, no peripheral edema Resp: Lungs CTA BL, no w/r/c GI: Abd soft, non-distended, non-tender, no r/r/g Musc: Full ROM, no deformity Skin: Warm, dry Neuro: Alert, oriented, grossly intact, sensation intact Psych: Cooperative, appropriate mood and affect 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 Osteoporosis Benign essential HTN Asthma Home Medications ???Medication ???Instructions ???Recorded ???Last Taken ???Type albuterol sulfate 90 mcg/actuation 1 - 2 puff inhalation Q6H PRN PRN 05/30/17 Unknown Rx aerosol inhaler Wheezing ##1 sucralfate 1 gram tablet 1 g PO QHS PRN reflux 10/29/17 07/15/19 History nitroglycerin 0.4 mg sublingual 0.4 mg sublingual Q5M PRN Chest 07/16/19 11/18/19 History tablet Pain multivitamin 1 tab PO DAILY 05/18/21 Unknown History lorazepam 0.5 mg tablet 0.5 mg PO DAILY PRN PRN Anxiety 08/09/21 Unknown History calcium 500 mg-vitamin D3 1,000 3 tab PO QPM supplement 05/31/22 Unknown History unit-vitamin K 40 mcg chewable tablet paroxetine HCl 10 mg tablet 5 mg PO DAILY 05/31/22 Unknown History pravastatin 80 mg tablet See Rx Instructions .Route 07/31/23 Unknown Rx .COMPLEX #90 tabs amlodipine 5 mg tablet 5 mg PO DAILY #90 tabs 10/16/23 Unknown Rx pantoprazole 40 mg tablet,delayed 40 mg PO DAILY for acid reflux #90 12/05/23 Unknown Rx release TABLETS metoprolol succinate 50 mg 50 mg PO DAILY blood 02/13/24 Unknown Rx tablet,extended release 24 hr pressure/heart #90 tabs meloxicam 15 mg tablet 15 mg PO QHS 06/21/24 Unknown History acetaminophen 500 mg tablet 1,000 mg (2 x 500 mg) PO Q8 #0 tabs 06/22/24 Unknown Rx lidocaine 5 % topical patch 2 patch topical DAILY #15 ea 06/22/24 Unknown Rx oxycodone 5 mg tablet 5 mg PO Q6H PRN PRN Pain Score 06/22/24 Unknown Rx 6-10 7 days #28 tabs clonidine HCl 0.1 mg tablet 0.1 mg PO TID PRN SBP > 175 #20 06/27/24 Unknown Rx tabs Allergy/AdvReac Type Severity Reaction Status Date / Time umeclidinium (From Anoro AdvReac Intermediate heart Verified 06/30/24 12:14 Ellipta) racing, high bp, anxious vilanterol (From Anoro AdvReac Intermediate heart Verified 06/30/24 12:14 Ellipta) racing, high bp, anxious codeine AdvReac HEART RACES Verified 06/30/24 12:14 Corticosteroids AdvReac high blood Verified 06/30/24 12:14 (Glucocorticoids) pressure indomethacin (From Indocin) AdvReac Abd Verified 06/30/24 12:14 cramps/diarrhea indomethacin sodium (Fro (more content not included)... Normal [facility] L501.4020on 06-30-2024 TROPONIN-I HS 8 pg/mL Normal 3.0-54.0 [facility] Comment on above: Result Comment: Cielo lee Note: New Test Units and Gender Specific Reference Ranges. For more information see Policy Stat Procedure [place] High Sensitivity Troponin (TNIH) and attachments. Performed By: #### L 100.0100, L501.5425, L500.2500 #### [facility] [address] [place], [address] L501.5425on 06-30-2024 TROPONIN-I HS 6 pg/mL Normal 3.0-54.0 [facility] Comment on above: Order Comment: 1 Y Result Comment: Cielo lee Note: New Test Units and Gender Specific Reference Ranges. For more information see Policy Stat Procedure [place] High Sensitivity Troponin (TNIH) and attachments. Performed By: #### L 100.0100, L501.5425, L500.2500 #### [facility] [address] [place], [address] 12 Lead EKGon 06-27-2024 12 Lead EKG [facility] Cardiovascular Services [address] [place] [address] 12 Lead EKG 06/27/24 1240 MR#: [id number] Acct: [id number] Name: ALEXY BRANNON Rep #: [id number] : 1945 78 From: Karan Persaud MD Attending Dr: Status: DEP ER Ordering Dr: Tobi Martinez MD Date: 06/27/24 Location: ED Sex: F C Admitted: Test Reason : HTN Blood Pressure : / mmHG Vent. Rate : 094 BPM Atrial Rate : 094 BPM P-R Int : 142 ms QRS Dur : 072 ms QT Int : 352 ms P-R-T Axes : 068 032 061 degrees QTc Int : 440 ms Normal sinus rhythm Minimal voltage criteria for LVH, may be normal variant ( Sokolow-Milligan ) Septal infarct , age undetermined Abnormal ECG Confirmed by HUNG SELLERS, KARAN ([id number]), market editor CHATA BALBUENA ([id number]) on 07/01/2024 2:10:00 PM Referred By: JESUS Confirmed By:KARAN PERSAUD MD 07/01/24 1410 Date Karan Persaud MD CC: Dr. Tobi Martinez MD; Dr. Malcolm Guzman MD Signed Normal [facility] Basic Metabolic Profile (BMP )on 06-27-2024 BUN/CRE 16.5 RATIO Normal 10-20 [facility] Comment on above: Order Comment: 'TROP ' Serial specimen #1, #2 or #3: 1 Performed By: #### L 500.2500, L100.0100, L501.4020 #### [facility] [address] [place], [address] CA,Total 9.2 mg/dL Normal 8.5-10.1 [facility] Comment on above: Order Comment: 'TROP ' Serial specimen #1, #2 or #3: 1 Performed By: #### L 500.2500, L100.0100, L501.4020 #### [facility] [address] [place] [place], [address] Chloride [Moles/Vol] 94 mmol/L Low 98-107 [facility] Comment on above: Order Comment: 'TROP ' Serial specimen #1, #2 or #3: 1 Performed By: #### L 500.2500, L100.0100, L501.4020 #### [facility] [address] [place], [address] CO2 [Moles/Vol] 26.0 mmol/L Normal 21.0-32.0 [facility] Comment on above: Order Comment: 'TROP ' Serial specimen #1, #2 or #3: 1 Performed By: #### L 500.2500, L100.0100, L501.4020 #### [facility] [address] [place], [address] Creatinine [Mass/Vol] 0.67 mg/dL Normal 0.55-1.02 [facility] Comment on above: Order Comment: 'TROP ' Serial specimen #1, #2 or #3: 1 Result Comment: The validity of the calculated GFR GFRAA in patients over 70 years has not been determined. Clinical correlation is essential. Performed By: #### L 500.2500, L100.0100, L501.4020 #### [facility] [address] [place], [address] ECRCL 50.85 ml/min Normal [facility] Comment on above: Order Comment: 'TROP ' Serial specimen #1, #2 or #3: 1 Performed By: #### L 500.2500, L100.0100, L501.4020 #### [facility] [address] [place], [address] EST GFR - AA 110 mL/min Normal >60 [facility] Comment on above: Order Comment: 'TROP ' Serial specimen #1, #2 or #3: 1 Result Comment: Afri can [place] GFR Calc Performed By: #### L 500.2500, L100.0100, L501.4020 #### [facility] [address] [place], [address] GAP 9 Normal 5-15 [facility] Comment on above: Order Comment: 'TROP ' Serial specimen #1, #2 or #3: 1 Performed By: #### L 500.2500, L100.0100, L501.4020 #### [facility] [address] [place], [address] GFR/1.73 sq M.predicted among non-blacks MDRD (S/P/Bld) [Vol rate/Area] 91 mL/min/{1.73_m2} Normal >60 [facility] Comment on above: Order Comment: 'TROP ' Serial specimen #1, #2 or #3: 1 Result Comment: Non- GFR Calc Performed By: #### L 500.2500, L100.0100, L501.4020 #### [facility] [address] [place], [address] Glucose [Mass/Vol] 117 mg/dL High 74-106 [facility] Comment on above: Order Comment: 'TROP ' Serial specimen #1, #2 or #3: 1 Result Comment: Fast ing Glucose result from 100 to 125 mg/dL suggests IMPAIRED HOMEOSTASIS per A.D.A. criteria. Performed By: #### L 500.2500, L100.0100, L501.4020 #### [facility] [address] [place], [address] Potassium [Moles/Vol] 3.6 mmol/L Normal 3.5-5.1 [facility] Comment on above: Order Comment: 'TROP ' Serial specimen #1, #2 or #3: 1 Performed By: #### L 500.2500, L100.0100, L501.4020 #### [facility] [address] [place], [address] Sodium [Moles/Vol] 129 mmol/L Low 136-145 [facility] Comment on above: Order Comment: 'TROP ' Serial specimen #1, #2 or #3: 1 Performed By: #### L 500.2500, L100.0100, L501.4020 #### [facility] [address] [place], [address] Urea nitrogen [Mass/Vol] 11 mg/dL Normal 7-18 [facility] Comment on above: Order Comment: 'TROP ' Serial specimen #1, #2 or #3: 1 Performed By: #### L 500.2500, L100.0100, L501.4020 #### [facility] [address] [place], [address] Brain/Head without Contrasto n 06-27-2024 Brain/Head without Contrast [facility] Imaging Services [address] [place] [address] Brain/Head without Contrast MR#: [id number] Acct: [id number] Name: ALEXY BRANNON Rep #: [id number] : 1945 F 78 From: Klever oleary MD PCP: Dr. Malcolm Guzman MD Status: REG ER Study: Brain/Head without Contrast Date of Exam: 01/15 Exam# [id number] Ordering Dr: Tobi Martinez MD -[id number] STUDY: CT BRAIN WITHOUT CONTRAST REASON FOR EXAM: Female, 78 years old. Headache RADIATION DOSAGE (If Supplied By Facility): CTDIvol = ( 47.06 ) mGy, DLP = ( 890.33 ) mGycm TECHNIQUE: Transaxial CT imaging of the brain was performed without administration of intravenous contrast material. Individualized dose optimization techniques were used for this CT. COMPARISON: Comparison is made with prior study dated August 30, 2012. FINDINGS: Normal soft tissue structures. Normal calvarium. There is mild cerebral atrophy with widening of the extra-axial spaces and ventricular dilatation. There are areas of decreased attenuation within the white matter tracts of the supratentorial brain, consistent with microvascular disease changes. 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 Normal brainstem. Normal cerebellum. There is no intracranial hemorrhage. There are no findings of an acute ischemic infarction. Atherosclerotic plaque formation of the cavernous portions of the internal carotid arteries bilaterally. Normal visualized paranasal sinuses. CT/Brain/Head without Contrast IMPRESSION: Chronic involutional changes of the brain. Electronically Signed: Klever Law MD at 14:14 EDT Reading Location ID and State: [facility] / [place] , Service support , CC: Dr. Tobi Martinez MD; Dr. Malcolm Guzman MD Program Or Project Administrator: Signed Normal [facility] CBC W/Diff, Automatedon 10-0 Absolute Lymph 0.82 X10 3/uL Low 0.83-4.51 [facility] Comment on above: Performed By: #### L 500.2500, L100.0100, L501.4020 #### [facility] [address] [place], [address] Absolute Neut 7.7 X10 3/uL Normal 2.0-7.7 [facility] Comment on above: Performed By: #### L 500.2500, L100.0100, L501.4020 #### [facility] [address] [place], [address] Basophils/100 WBC (Bld) 0.4 % Normal 0-1 [facility] [place] Comment on above: Performed By: #### L 500.2500, L100.0100, L501.4020 #### [facility] [address] [place], [address] Eosinophils/100 WBC (Bld) 0.1 % Normal 0-5 [facility] Comment on above: Performed By: #### L 500.2500, L100.0100, L501.4020 #### [facility] [address] [place], [address] Erythrocyte distribution width (RBC) [Ratio] 13.8 % Normal 11.6-14.6 [facility] Comment on above: Performed By: #### L 500.2500, L100.0100, L501.4020 #### [facility] [address] [place], [address] Hematocrit (Bld) [Volume fraction] 36.0 % Low 37-47 [facility] Comment on above: Performed By: #### L 500.2500, L100.0100, L501.4020 #### [facility] [address] [place], [address] Hemoglobin (Bld) [Mass/Vol] 11.6 g/dL Low 12.0-15.0 [facility] Comment on above: Performed By: #### L 500.2500, L100.0100, L501.4020 #### [facility] [address] [place], [address] IG% 0.400 Normal 0.0-0.9 [facility] Comment on above: Result Comment: IG% - Immature Granulocytes (promyelocytes, myelocytes and metamyelocytes) > 1% indicates that a LEFT SHIFT is Present. Performed By: #### L 500.2500, L100.0100, L501.4020 #### [facility] [address] [place], [address] Lymphocytes/100 WBC (Bld) 8.9 % Low 19-41 [facility] Comment on above: Performed By: #### L 500.2500, L100.0100, L501.4020 #### [facility] [address] [place], [address] MCH (RBC) [Entitic mass] 29.4 pg Normal 27.0-32.0 [facility] Comment on above: Performed By: #### L 500.2500, L100.0100, L501.4020 #### [facility] [address] [place], [address] MCHC (RBC) [Mass/Vol] 32.2 g/dL Normal 32-36 [facility] Comment on above: Performed By: #### L 500.2500, L100.0100, L501.4020 #### [facility] [address] [place], [address] MCV (RBC) [Entitic vol] 91.4 fL Normal 81-99 [facility] Comment on above: Performed By: #### L 500.2500, L100.0100, L501.4020 #### [facility] [address] [place], [address] Monocytes/100 WBC (Bld) 7.1 % Normal 0-10 [facility] Comment on above: Performed By: #### L 500.2500, L100.0100, L501.4020 #### [facility] [address] [place], [address] Neutrophils/100 WBC (Bld) 83.1 % High 47-70 [facility] Comment on above: Performed By: #### L 500.2500, L100.0100, L501.4020 #### [facility] [address] [place], [address] Nucleated RBC (Bld) [#/Vol] 0 10*3/uL Normal 0-5 [facility] Comment on above: Performed By: #### L 500.2500, L100.0100, L501.4020 #### [facility] [address] [place], [address] Platelet mean volume (Bld) [Entitic vol] 7.8 fL Normal 6.2-12.0 [facility] Comment on above: Performed By: #### L 500.2500, L100.0100, L501.4020 #### [facility] [address] [place], [address] Platelets (Bld) [#/Vol] 371 10*3/uL Normal 150-450 [facility] Comment on above: Performed By: #### L 500.2500, L100.0100, L501.4020 #### [facility] [address] [place], [address] RBC (Bld) [#/Vol] 3.94 10*6/uL Low 4.2-5.4 [facility] Comment on above: Performed By: #### L 500.2500, L100.0100, L501.4020 #### [facility] [address] [place], [address] RDW SD 46.8 fl High 35.1-43.9 [facility] Comment on above: Performed By: #### L 500.2500, L100.0100, L501.4020 #### [facility] [address] [place], [address] WBC (Bld) [#/Vol] 9.2 10*3/uL Normal 4.4-11.0 [facility] Comment on above: Performed By: #### L 500.2500, L100.0100, L501.4020 #### [facility] [address] [place], [address] Emergency Department Summary on 06-27-2024 Emergency Department Summary [facility] Medical Records Department [address] [place] [address] Emergency Department Summary 06/27/24 MR#: [id number] Acct: [id number] Name: ALEXY BRANNON Rep #: [id number] : 1945 78 From: Tobi Martinez MD PCP: Dr. Malcolm Guzman MD Status:REG ER Location: ED HPI History of Present Illness Chief Complaint: Hypertension Informant: patient, spouse/S.O. and EMS Narrative Narrative: Patient says she started getting a headache 3 hours ago or so, she checked her blood pressure and it was 190 or something like that, very high, higher than it has been all week. She is been following it, her pressures have been going up 170s-180s, since she had steroid injections in her back a week ago. She states along with that if she was feeling like she was swimmy in her head", she states she gets dizzy like that when she takes Tylenol and she took some Tylenol today but she has never had these other symptoms such as the headache. She is also feeling like she is very "burpey" and having some nausea but no vomiting or abdominal pain or chest pain or dyspnea. No near-syncope or syncope. The dizziness is no worse when she changes position. 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 Osteoporosis Benign essential HTN Asthma Home Medications ???Medication ???Instructions ???Recorded ???Last Taken ???Type albuterol sulfate 90 mcg/actuation 1 - 2 puff inhalation Q6H PRN PRN 05/30/17 Unknown Rx aerosol inhaler Wheezing ##1 sucralfate 1 gram tablet 1 g PO QHS PRN reflux 10/29/17 07/15/19 History nitroglycerin 0.4 mg sublingual 0.4 mg sublingual Q5M PRN Chest 07/16/19 11/18/19 History tablet Pain multivitamin 1 tab PO DAILY 05/18/21 Unknown History lorazepam 0.5 mg tablet 0.5 mg PO DAILY PRN PRN Anxiety 08/09/21 Unknown History calcium 500 mg-vitamin D3 1,000 3 tab PO QPM supplement 05/31/22 Unknown History unit-vitamin K 40 mcg chewable tablet paroxetine HCl 10 mg tablet 5 mg PO DAILY 05/31/22 Unknown History pravastatin 80 mg tablet See Rx Instructions .Route 07/31/23 Unknown Rx .COMPLEX #90 tabs amlodipine 5 mg tablet 5 mg PO DAILY #90 tabs 10/16/23 Unknown Rx pantoprazole 40 mg tablet,delayed 40 mg PO DAILY for acid reflux #90 12/05/23 Unknown Rx release TABLETS metoprolol succinate 50 mg 50 mg PO DAILY blood 02/13/24 Unknown Rx tablet,extended release 24 hr pressure/heart #90 tabs meloxicam 15 mg tablet 15 mg PO QHS 06/21/24 Unknown History acetaminophen 500 mg tablet 1,000 mg (2 x 500 mg) PO Q8 #0 tabs 06/22/24 Unknown Rx lidocaine 5 % topical patch 2 patch topical DAILY #15 ea 06/22/24 Unknown Rx oxycodone 5 mg tablet 5 mg PO Q6H PRN PRN Pain Score 06/22/24 Unknown Rx 6-10 7 days #28 tabs clonidine HCl 0.1 mg tablet 0.1 mg PO TID PRN SBP > 175 #20 06/27/24 Unknown Rx tabs Allergy/AdvReac Type Severity Reaction Status Date / Time umeclidinium (From Anoro AdvReac Intermediate heart Verified 06/27/24 12:21 Ellipta) racing, high bp, anxious vilanterol (From Anoro AdvReac Intermediate heart Verified 06/27/24 12:21 Ellipta) racing, high bp, anxious codeine AdvReac HEART RACES Verified 06/27/24 12:21 Corticosteroids AdvReac high blood Verified 06/27/24 12:21 (Glucocorticoids) pressure indomethacin (From Indocin) AdvReac Abd Verified 06/27/24 12:21 cramps/diarrhea indomethacin sodium (From AdvReac Abd Verified 06/27/24 12:21 Indocin) cramps/diarrhea levofloxacin (From Levaquin) AdvReac INCREASED Verified 06/27/24 12:21 BLOOD PRESSURE nitrofurantoin (From AdvReac Nausea/Vom/ Verified 06/27/24 12:21 Macrobid) Diarrhea propoxyphene napsylate (From AdvReac PASSES OUT Verified 06/27/24 12:21 Darvocet-N 100) Family History Father , age 92, had [place] age 35 Myocardial infarction, Onset Age: 35 Arthritis Mother Asthma Respiratory disease Grandmother Asthma Emphysema lung Respiratory disease Other Heart disease Hypertension Surgical History History of appendectomy H/O kyphoplasty H/O: hyster (more content not included)... Normal [facility] L501.4020on 06-27-2024 TROPONIN-I HS 8 pg/mL Normal 3.0-54.0 [facility] Comment on above: Order Comment: 'TROP ' Serial specimen #1, #2 or #3: 1 Result Comment: Plea Note: New Test Units and Gender Specific Reference Ranges. For more information see Policy Stat Procedure [place] High Sensitivity Troponin (TNIH) and attachments. Performed By: #### L 500.2500, L100.0100, L501.4020 #### [facility] [address] [place], [address] Vitamin D,25 Hydroxyon 06-23 Vitamin D 25-OH 37.2 ng/mL Normal [facility] Comment on above: Result Comment: Kaylee min D 25(OH) Status Range Deficiency <20 ng/mL (50nmol/L) Insufficiency 20 - 30 ng/mL (50 - 75 nmol/L) Sufficiency 30 - 100 ng/mL (75 - 250 nmol/L) Toxicity >100 ng/mL (>250 nmol/L) Performed By: #### L 506.1000 #### [facility] [address] [place], [address] CBC W/Diff, Automatedon - Absolute Lymph 1.29 X10 3/uL Normal 0.83-4.51 [facility] Comment on above: Performed By: #### L 501.5200, L100.0100, L501.2300, L500.4050 ####[facility] [address] [place], [address] Absolute Neut 5.0 X10 3/uL Normal 2.0-7.7 [facility] Comment on above: Performed By: #### L 501.5200, L100.0100, L501.2300, L500.4050 ####[facility] [address] [place], [address] Basophils/100 WBC (Bld) 0.4 % Normal 0-1 W [facility] Comment on above: Performed By: #### L 501.5200, L100.0100, L501.2300, L500.4050 ####[facility] [address] [place], [address] Eosinophils/100 WBC (Bld) 0.8 % Normal 0-5 [facility] Comment on above: Performed By: #### L 501.5200, L100.0100, L501.2300, L500.4050 ####[facility] [address] [place], [address] Erythrocyte distribution width (RBC) [Ratio] 13.9 % Normal 11.6-14.6 [facility] Comment on above: Performed By: #### L 501.5200, L100.0100, L501.2300, L500.4050 ####[facility] [address] [place], [address] Hematocrit (Bld) [Volume fraction] 33.8 % Low 37-47 [facility] Comment on above: Performed By: #### L 501.5200, L100.0100, L501.2300, L500.4050 ####[facility] [address] [place], [address] Hemoglobin (Bld) [Mass/Vol] 10.9 g/dL Low 12.0-15.0 [facility] Comment on above: Performed By: #### L 501.5200, L100.0100, L501.2300, L500.4050 ####[facility] [address] [place], [address] IG% 0.600 Normal 0.0-0.9 [facility] Comment on above: Result Comment: IG% - Immature Granulocytes (promyelocytes, myelocytes and metamyelocytes) > 1% indicates that a LEFT SHIFT is Present. Performed By: #### L 501.5200, L100.0100, L501.2300, L500.4050 ####[facility] [address] [place], [address] Lymphocytes/100 WBC (Bld) 18.2 % Low 19-41 [facility] Comment on above: Performed By: #### L 501.5200, L100.0100, L501.2300, L500.4050 ####[facility] [address] [place], [address] MCH (RBC) [Entitic mass] 29.6 pg Normal 27.0-32.0 [facility] Comment on above: Performed By: #### L 501.5200, L100.0100, L501.2300, L500.4050 ####[facility] [address] [place], [address] MCHC (RBC) [Mass/Vol] 32.2 g/dL Normal 32-36 [facility] Comment on above: Performed By: #### L 501.5200, L100.0100, L501.2300, L500.4050 ####[facility] [address] [place], [address] MCV (RBC) [Entitic vol] 91.8 fL Normal 81-99 W [facility] Comment on above: Performed By: #### L 501.5200, L100.0100, L501.2300, L500.4050 ####[facility] [address] [place], [address] Monocytes/100 WBC (Bld) 9.7 % Normal 0-10 W [facility] Comment on above: Performed By: #### L 501.5200, L100.0100, L501.2300, L500.4050 ####[facility] [address] [place], [address] Neutrophils/100 WBC (Bld) 70.3 % High 47-70 [facility] Comment on above: Performed By: #### L 501.5200, L100.0100, L501.2300, L500.4050 ####[facility] [address] [place], [address] Nucleated RBC (Bld) [#/Vol] 0 10*3/uL Normal 0-5 [facility] Comment on above: Performed By: #### L 501.5200, L100.0100, L501.2300, L500.4050 ####[facility] [address] [place], [address] Platelet mean volume (Bld) [Entitic vol] 8.4 fL Normal 6.2-12.0 [facility] Comment on above: Performed By: #### L 501.5200, L100.0100, L501.2300, L500.4050 ####[facility] [address] [place], [address] Platelets (Bld) [#/Vol] 308 10*3/uL Normal 150-450 [facility] Comment on above: Performed By: #### L 501.5200, L100.0100, L501.2300, L500.4050 ####[facility] [address] [place], [address] RBC (Bld) [#/Vol] 3.68 10*6/uL Low 4.2-5.4 [facility] Comment on above: Performed By: #### L 501.5200, L100.0100, L501.2300, L500.4050 ####[facility] [address] [place], [address] RDW SD 47.0 fl High 35.1-43.9 [facility] Comment on above: Performed By: #### L 501.5200, L100.0100, L501.2300, L500.4050 ####[facility] [address] [place], [address] WBC (Bld) [#/Vol] 7.1 10*3/uL Normal 4.4-11.0 [facility] Comment on above: Performed By: #### L 501.5200, L100.0100, L501.2300, L500.4050 ####[facility] [address] [place], [address] Comprehensive Metabolic Prof [facility] 06-22-2024 Albumin [Mass/Vol] 3.6 g/dL Normal 3.2-5.0 [facility] Comment on above: Performed By: #### L 501.5200, L100.0100, L501.2300, L500.4050 ####[facility] [address] [place], [address] Albumin/Globulin [Mass ratio] 1.2 {ratio} Normal 0.9-2.4 [facility] Comment on above: Performed By: #### L 501.5200, L100.0100, L501.2300, L500.4050 ####[facility] [address] [place], [address] ALK P 85 U/L Normal 45-117 [facility] Comment on above: Performed By: #### L 501.5200, L100.0100, L501.2300, L500.4050 ####[facility] [address] [place], [address] ALT [Catalytic activity/Vol] 24 U/L Normal 13-56 [facility] Comment on above: Performed By: #### L 501.5200, L100.0100, L501.2300, L500.4050 ####[facility] [address] [place], [address] AST [Catalytic activity/Vol] 21 U/L Normal 15-37 [facility] Comment on above: Performed By: #### L 501.5200, L100.0100, L501.2300, L500.4050 ####[facility] [address] [place], [address] Bilirubin [Mass/Vol] 0.40 mg/dL Normal 0.20-1.00 [facility] Comment on above: Result Comment: For patients on eltrombopag therapy, use of Dimension [place] TBIL is not recommended. Performed By: #### L 501.5200, L100.0100, L501.2300, L500.4050 ####[facility] [address] [place], [address] BUN/CRE 29.0 RATIO High 10-20 [facility] Comment on above: Performed By: #### L 501.5200, L100.0100, L501.2300, L500.4050 ####[facility] [address] [place], [address] CA,Total 9.7 mg/dL Normal 8.5-10.1 [facility] Comment on above: Performed By: #### L 501.5200, L100.0100, L501.2300, L500.4050 ####[facility] [address] [place], [address] Chloride [Moles/Vol] 93 mmol/L Low 98-107 [facility] Comment on above: Performed By: #### L 501.5200, L100.0100, L501.2300, L500.4050 ####[facility] [address] [place], [address] CO2 [Moles/Vol] 30.0 mmol/L Normal 21.0-32.0 [facility] Comment on above: Performed By: #### L 501.5200, L100.0100, L501.2300, L500.4050 ####[facility] [address] [place], [address] Creatinine [Mass/Vol] 0.72 mg/dL Normal 0.55-1.02 [facility] Comment on above: Result Comment: The validity of the calculated GFR GFRAA in patients over 70 years has not been determined. Clinical correlation is essential. Performed By: #### L 501.5200, L100.0100, L501.2300, L500.4050 ####[facility] [address] [place], [address] ECRCL 48.16 ml/min Normal [facility] Comment on above: Performed By: #### L 501.5200, L100.0100, L501.2300, L500.4050 ####[facility] [address] [place], [address] EST GFR - AA 100 mL/min Normal >60 [facility] Comment on above: Result Comment: Afri can [place] GFR Calc Performed By: #### L 501.5200, L100.0100, L501.2300, L500.4050 ####[facility] [address] [place], [address] GAP 6 Normal 5-15 [facility] Comment on above: Performed By: #### L 501.5200, L100.0100, L501.2300, L500.4050 ####[facility] [address] [place], [address] GFR/1.73 sq M.predicted among non-blacks MDRD (S/P/Bld) [Vol rate/Area] 83 mL/min/{1.73_m2} Normal >60 [facility] Comment on above: Result Comment: Non- GFR Calc Performed By: #### L 501.5200, L100.0100, L501.2300, L500.4050 ####[facility] [address] [place], [address] Globulin (S) [Mass/Vol] 3.0 g/dL Normal 2.2-4.2 [facility] Comment on above: Performed By: #### L 501.5200, L100.0100, L501.2300, L500.4050 ####[facility] [address] [place], [address] Glucose [Mass/Vol] 106 mg/dL Normal 74-106 [facility] Comment on above: Result Comment: Fast ing Glucose result from 100 to 125 mg/dL suggests IMPAIRED HOMEOSTASIS per A.D.A. criteria. Performed By: #### L 501.5200, L100.0100, L501.2300, L500.4050 ####[facility] [address] [place], [address] Potassium [Moles/Vol] 4.1 mmol/L Normal 3.5-5.1 [facility] Comment on above: Performed By: #### L 501.5200, L100.0100, L501.2300, L500.4050 ####[facility] [address] [place], [address] Sodium [Moles/Vol] 129 mmol/L Low 136-145 [facility] Comment on above: Performed By: #### L 501.5200, L100.0100, L501.2300, L500.4050 ####[facility] [address] [place], [address] T PROT 6.6 g/dL Normal 6.4-8.2 [facility] Comment on above: Performed By: #### L 501.5200, L100.0100, L501.2300, L500.4050 ####[facility] [address] [place], [address] Urea nitrogen [Mass/Vol] 21 mg/dL High 7-18 [facility] Comment on above: Performed By: #### L 501.5200, L100.0100, L501.2300, L500.4050 ####[facility] [address] [place], [address] Magnesiumon 06-22-2024 Magnesium [Mass/Vol] 2.2 mg/dL Normal 1.6-2.6 [facility] Comment on above: Performed By: #### L 501.5200, L100.0100, L501.2300, L500.4050 ####[facility] [address] [place], [address] Phosphoruson 06-22-2024 Phosphate [Mass/Vol] 4.7 mg/dL Normal 2.5-4.9 [facility] Comment on above: Performed By: #### L 501.5200, L100.0100, L501.2300, L500.4050 ####[facility] [address] [place], [address] Abdomen/Pelvis W IV Cont ONL Yon 06-21-2024 Abdomen/Pelvis W IV Cont ONLY [facility] Imaging Services [address] [place] [address] Abdomen/Pelvis W IV Cont ONLY MR#: [id number] Acct: [id number] Name: ALEXY BRANNON Rep #: [id number] : 1945 F 78 From: Marlena Miner PCP: Dr. Malcolm Guzman MD Status: REG ER Study: Abdomen/Pelvis W IV Cont ONLY Date of Exam: Exam# [id number] Ordering Dr: Timothy Rene DO -[id number] EXAM: CT Abdomen And Pelvis W/ Contrast Injection HISTORY: low back pain TECHNIQUE: Routine protocol CT abdomen pelvis. IV Contrast: IV 75mL Isovue-370 . Oral Contrast: without. Sagittal and coronal images were reconstructed. RADIATION DOSAGE (If Supplied By Facility): CTDIvol = ( 12.32 ) mGy, DLP = ( 992.72 ) mGycm Individualized dose optimization techniques were used for this CT. COMPARISON: CT lumbar spine 05/22/2024. LIMITATIONS: None. FINDINGS: LOWER CHEST: Minimal dependent atelectasis. LIVER: Small cyst right lobe. GALLBLADDER/BILE DUCTS: No calcified gallstones identified in the gallbladder. Common bile duct and central intrahepatic ducts are prominent. PANCREAS: Pancreatic duct is slightly dilated. No adjacent stranding or collection. SPLEEN: Unremarkable. ADRENAL GLANDS: Unremarkable. KIDNEYS / URETERS: Large cyst upper pole left kidney approximately 9 x 6.5 cm, no follow-up needed. No hydronephrosis. BOWEL / MESENTERY: Scattered diverticula throughout the colon. No bowel obstruction. APPENDIX: Not identified. PERITONEUM: No free air. No free fluid. VESSELS: Abdominal aorta is normal caliber. RETROPERITONEUM: Unremarkable. REPRODUCTIVE ORGANS: Unremarkable. BLADDER: Unremarkable. ABDOMINAL WALL: Unremarkable. BONES: No acute abnormality. Surgical hardware in the left femur. Degenerative changes in the lumbar spine. No acute fracture demonstrated. Focal angulation of the lower sacrum/coccygeal junction possibly an old fracture OTHER: None. ____ CT/Abdomen/Pelvis W IV Cont ONLY IMPRESSION: Colonic diverticulosis without evidence of acute diverticulitis. Slightly dilated pancreatic duct. Prominent common bile duct. MRI/MRCP may be helpful for further evaluation if clinically indicated. Electronically Signed: Marlena Alvarenga MD at 3:05 EDT , CC: Dr. Malcolm Guzman MD; Dr. Timothy Rene DO Program Or Project Administrator: Signed Normal [facility] CBC W/Diff, Automatedon 05-26 Absolute Lymph 1.51 X10 3/uL Normal 0.83-4.51 [facility] Comment on above: Performed By: #### L 503.6620 #### [facility] Laboratory [address] [place], [address] Absolute Neut 6.3 X10 3/uL Normal 2.0-7.7 [facility] Comment on above: Performed By: #### L 503.6620 #### [facility] Laboratory [address] [place], [address] Basophils/100 WBC (Bld) 0.5 % Normal 0-1 W [facility] Comment on above: Performed By: #### L 503.6620 #### [facility] Laboratory [address] [place], [address] Eosinophils/100 WBC (Bld) 0.5 % Normal 0-5 [facility] Comment on above: Performed By: #### L 503.6620 #### [facility] Laboratory [address] [place], [address] Erythrocyte distribution width (RBC) [Ratio] 13.7 % Normal 11.6-14.6 [facility] Comment on above: Performed By: #### L 503.6620 #### [facility] Laboratory [address] [place], [address] Hematocrit (Bld) [Volume fraction] 38.0 % Normal 37-47 [facility] Comment on above: Performed By: #### L 503.6620 #### [facility] Laboratory [address] [place], [address] Hemoglobin (Bld) [Mass/Vol] 12.5 g/dL Normal 12.0-15.0 [facility] Comment on above: Performed By: #### L 399.58 #### [facility] Laboratory [address] [place], [address] IG% 0.300 Normal 0.0-0.9 [facility] Comment on above: Result Comment: IG% - Immature Granulocytes (promyelocytes, myelocytes and metamyelocytes) > 1% indicates that a LEFT SHIFT is Present. Performed By: #### L 503.20 #### [facility] Laboratory [address] [place], [address] Lymphocytes/100 WBC (Bld) 17.6 % Low 19-41 [facility] Comment on above: Performed By: #### L 503.6619 #### [facility] Laboratory [address] [place] [place], [address] MCH (RBC) [Entitic mass] 30.1 pg Normal 27.0-32.0 [facility] Comment on above: Performed By: #### L 503.21 #### [facility] Laboratory [address] [facility] [place], [address] MCHC (RBC) [Mass/Vol] 32.9 g/dL Normal 32-36 [facility] Comment on above: Performed By: #### L 503.20 #### [facility] Laboratory [address] [place], [address] MCV (RBC) [Entitic vol] 91.6 fL Normal 81-99 [facility] Comment on above: Performed By: #### L 797.20 #### [facility] Laboratory [address] [place], [address] Monocytes/100 WBC (Bld) 7.5 % Normal 0-10 [facility] Comment on above: Performed By: #### L 503.20 #### [facility] Laboratory [address] [place], [address] Neutrophils/100 WBC (Bld) 73.6 % High 47-70 [facility] Comment on above: Performed By: #### L 503.20 #### [facility] Laboratory [address] [place], [address] Nucleated RBC (Bld) [#/Vol] 0 10*3/uL Normal 0-5 [facility] Comment on above: Performed By: #### L [address] #### [facility] Laboratory [address] [place], [address] Platelet mean volume (Bld) [Entitic vol] 7.9 fL Normal 6.2-12.0 [facility] Comment on above: Performed By: #### L [address] #### [facility] Laboratory [address] [place], [address] Platelets (Bld) [#/Vol] 363 10*3/uL Normal 150-450 [facility] Comment on above: Performed By: #### L 503.20 #### [facility] Laboratory [address] [place], [address] RBC (Bld) [#/Vol] 4.15 10*6/uL Low 4.2-5.4 [facility] Comment on above: Performed By: #### L 503.20 #### [facility] Laboratory [address] [place], [address] RDW SD 46.4 fl High 35.1-43.9 [facility] Comment on above: Performed By: #### L 503.20 #### [facility] Laboratory [address] [place], [address] WBC (Bld) [#/Vol] 8.6 10*3/uL Normal 4.4-11.0 [facility] Comment on above: Performed By: #### L 503.6620 #### [facility] Laboratory [address] [place], [address] Comprehensive Metabolic Prof ilon 06-21-2024 Albumin [Mass/Vol] 4.4 g/dL Normal 3.2-5.0 [facility] Comment on above: Performed By: #### L 503.6620 #### [facility] Laboratory [address] [place], [address] Albumin/Globulin [Mass ratio] 1.2 {ratio} Normal 0.9-2.4 [facility] Comment on above: Performed By: #### L 503.6620 #### [facility] Laboratory [address] [place], [address] ALK P 103 U/L Normal 45-117 [facility] Comment on above: Performed By: #### L 503.6620 #### [facility] Laboratory [address] [place], [address] ALT [Catalytic activity/Vol] 31 U/L Normal 13-56 [facility] Comment on above: Performed By: #### L 503.6620 #### [facility] Laboratory [address] [place], [address] AST [Catalytic activity/Vol] 23 U/L Normal 15-37 [facility] Comment on above: Performed By: #### L 503.6620 #### [facility] Laboratory [address] [place], [address] Bilirubin [Mass/Vol] 0.40 mg/dL Normal 0.20-1.00 [facility] Comment on above: Result Comment: For patients on eltrombopag therapy, use of Dimension [place] TBIL is not recommended. Performed By: #### L 503.6620 #### [facility] Laboratory [address] [place], [address] BUN/CRE 17.1 RATIO Normal 10-20 [facility] Comment on above: Performed By: #### L 503.20 #### [facility] Laboratory [address] [place], [address] CA,Total 9.3 mg/dL Normal 8.5-10.1 [facility] Comment on above: Performed By: #### L 503.20 #### [facility] Laboratory [address] [place], [address] Chloride [Moles/Vol] 93 mmol/L Low 98-107 [facility] Comment on above: Performed By: #### L 503.20 #### [facility] Laboratory [address] [place], [address] CO2 [Moles/Vol] 30.0 mmol/L Normal 21.0-32.0 [facility] Comment on above: Performed By: #### L 503.20 #### [facility] Laboratory [address] [place], [address] Creatinine [Mass/Vol] 0.76 mg/dL Normal 0.55-1.02 [facility] Comment on above: Result Comment: The validity of the calculated GFR GFRAA in patients over 70 years has not been determined. Clinical correlation is essential. Performed By: #### L 503.20 #### [facility] Laboratory [address] [place], [address] EST GFR - AA 95 mL/min Normal >60 [facility] Comment on above: Result Comment: Afri can [place] GFR Calc Performed By: #### L 503.20 #### [facility] Laboratory [address] [place], [address] GAP 7 Normal 5-15 [facility] Comment on above: Performed By: #### L 503.20 #### [facility] Laboratory [address] [place], [address] GFR/1.73 sq M.predicted among non-blacks MDRD (S/P/Bld) [Vol rate/Area] 78 mL/min/{1.73_m2} Normal >60 [facility] Comment on above: Result Comment: Non- GFR Calc Performed By: #### L 503.6620 #### [facility] Laboratory [address] [place], [address] Globulin (S) [Mass/Vol] 3.6 g/dL Normal 2.2-4.2 [facility] Comment on above: Performed By: #### L 503.6620 #### [facility] Laboratory [address] [place], [address] Glucose [Mass/Vol] 122 mg/dL High 74-106 [facility] Comment on above: Result Comment: Fast ing Glucose result from 100 to 125 mg/dL suggests IMPAIRED HOMEOSTASIS per A.D.A. criteria. Performed By: #### L 503.6620 #### [facility] Laboratory [address] [place], [address] Potassium [Moles/Vol] 3.8 mmol/L Normal 3.5-5.1 [facility] Comment on above: Performed By: #### L 503.6620 #### [facility] Laboratory [address] [place], [address] Sodium [Moles/Vol] 130 mmol/L Low 136-145 [facility] Comment on above: Performed By: #### L 503.6620 #### [facility] Laboratory [address] [place], [address] T PROT 8.0 g/dL Normal 6.4-8.2 [facility] Comment on above: Performed By: #### L 503.6620 #### [facility] Laboratory [address] [place], [address] Urea nitrogen [Mass/Vol] 13 mg/dL Normal 7-18 [facility] Comment on above: Performed By: #### L 503.6620 #### [facility] Laboratory [address] [place], [address] Emergency Department Summary on 06-21-2024 Emergency Department Summary [facility] Medical Records Department [address] [place] [address] Emergency Department Summary 06/21/24 MR#: [id number] Acct: [id number] Name: ALEXY BRANNON Rep #: [id number] : 1945 78 From: Timothy Rene DO PCP: Dr. Malcolm Guzman MD Status:REG ER Location: ED HPI History of Present Illness Chief Complaint: Back Narrative Narrative: Patient is a 78-year-old female with a past medical history of hypertension, osteopenia, COPD, hypertension who presented to the emergency department the chief complaint of back pain. Patient states that she had been having some back pain however seem to be getting better over the last few days went to the store and she states that she leaned over and went to put eggs on her front seat and developed excruciating back pain. She states that things do not improving which prompted her to come here for the valuation management. States that this feels similar to when she had a compression fracture in the past. She states that she did have kyphoplasty for this. [facility] Medical History Hyponatremia Pneumonia Hypertension Headache Cataracts, bilateral Cancer UTI (urinary tract infection) Bone fracture Back problem Arthritis Anemia Seasonal allergies GERD (gastroesophageal reflux disease) Myocardial infarct CAD (coronary artery disease) Pulmonary nodule Bronchitis Old myocardial infarction COPD (chronic obstructive pulmonary disease) Hyperlipidemia History of non-ST elevation myocardial infarction (NSTEMI) Takotsubo cardiomyopathy Atherosclerotic heart disease of [place] coronary artery without angina pectoris Tongue cancer History of coronary vasospasm Osteoporosis Benign essential HTN Asthma Home Medications ???Medication ???Instructions ???Recorded ???Last Taken ???Type albuterol sulfate 90 mcg/actuation 1 - 2 puff inhalation Q6H PRN PRN 05/30/17 Unknown Rx aerosol inhaler Wheezing ##1 sucralfate 1 gram tablet 1 g PO QHS PRN reflux 10/29/17 07/15/19 History nitroglycerin 0.4 mg sublingual 0.4 mg sublingual Q5M PRN Chest 07/16/19 11/18/19 History tablet Pain multivitamin 1 tab PO DAILY 05/18/21 Unknown History lorazepam 0.5 mg tablet 0.5 mg PO DAILY PRN PRN Anxiety 08/09/21 Unknown History calcium 500 mg-vitamin D3 1,000 3 tab PO QPM supplement 05/31/22 Unknown History unit-vitamin K 40 mcg chewable tablet paroxetine HCl 10 mg tablet 5 mg PO DAILY 05/31/22 Unknown History cranberry fruit concentrate 250 mg 250 mg PO DAILY 03/08/23 Unknown History chewable tablet (Azo Cranberry) pravastatin 80 mg tablet See Rx Instructions .Route 07/31/23 Unknown Rx .COMPLEX #90 tabs tiotropium 2.5 mcg-olodaterol 2.5 2 puff inhalation DAILY #3 device 09/10/23 Unknown Rx mcg/actuation mist for inhalation (Stiolto Respimat) amlodipine 5 mg tablet 5 mg PO DAILY #90 tabs 10/16/23 Unknown Rx pantoprazole 40 mg tablet,delayed 40 mg PO DAILY for acid reflux #90 12/05/23 Unknown Rx release TABLETS metoprolol succinate 50 mg 50 mg PO DAILY blood 02/13/24 Unknown Rx tablet,extended release 24 hr pressure/heart #90 tabs oxycodone 5 mg tablet 5 mg PO Q6H PRN pain 3 days #12 05/22/24 Unknown Rx tabs Allergy/AdvReac Type Severity Reaction Status Date / Time umeclidinium (From Anoro AdvReac Intermediate heart Verified 06/20/24 21:53 Ellipta) racing, high bp, anxious vilanterol (From Anoro AdvReac Intermediate heart Verified 06/20/24 21:53 Ellipta) racing, high bp, anxious codeine AdvReac HEART RACES Verified 06/20/24 21:53 Corticosteroids AdvReac high blood Verified 06/20/24 21:53 (Glucocorticoids) pressure indomethacin (From Indocin) AdvReac Abd Verified 06/20/24 21:53 cramps/diarrhea indomethacin sodium (From AdvReac Abd Verified 06/20/24 21:53 Indocin) cramps/diarrhea levofloxacin (From Levaquin) AdvReac INCREASED Verified 06/20/24 21:53 BLOOD PRESSURE nitrofurantoin (From AdvReac Nausea/Vom/ Verified 06/20/24 21:53 Macrobid) Diarrhea propoxyphene napsylate (From AdvReac PASSES OUT Verified 06/20/24 21:53 Darvocet-N 100) Family History Father , age 92, had [place] age 35 Myocardial infarction, Onset Age: 35 Arthritis Mother Asthma Respiratory disease Grandmother Asthma Emphysema lung Respiratory disease Other Heart disease Hypertension Surgical History H/O kyphoplasty H/O: hysterectomy History of tonsillectomy S/P pericardial window creation History of cataract surgery History of pericardiectomy History of left heart catheterization Social History Smoking Status: (more content not included)... Normal [facility] H AND P Exam - Hospitaliston 06-21-2024 H&P Exam - Hospitalist [facility] Medical Records Department [address] [place] [address] H P Exam - Hospitalist 06/21/24 0338 MR#: [id number] Acct: [id number] Name: ALEXY BRANNON Rep #: [id number] : 1945 78 From: Ian Tang DO PCP: Dr. Malcolm Guzman MD Status:ADM [facility] Location: [address] - General General Date of Admission: 06/21/24 Date of Service: 06/21/24 Chief Complaint: Intractable Back Pain. HPI Narrative ALEXY BRANNON, is a 78 F with a past medical history of essential hypertension, hyperlipidemia, history of tobacco abuse; with subsequent asthma/COPD, heterozygous alpha 1 antitrypsin deficiency, history of malignant neoplasm of head and neck, history of pulmonary nodule, CAD; s/p [place], history of Takotsubo cardiomyopathy, history pericardiectomy, history of hysterectomy, history of chronic tonsillitis, seasonal allergies, GERD, history of bilateral cataracts; s/p extraction, kyphoscoliosis, osteoporosis; with history of T8 compression fracture and subsequent kyphoplasty and osteoarthritis who presents to [facility] ER complaining of intractable back pain. Mrs. Brannon reports her symptoms began a few days prior to admission and then she went to the store on June 20, 2024 and when she leaned over to put eggs on her front passenger seat she had an abrupt-onset of excruciating back pain that was similar to her previous T8 compression fracture but this was much, much worse. She then took multiple dose of Tylenol at home and tried to "tough it out" but she eventually relented deciding to come in for further evaluation and treatment. She denies associated fever, chills, nausea, vomiting, diarrhea, chest pain, SOB, paresthesias or recent traumatic injury. In the ER she was noted to have CT evidence of compression fractures at T5 and T7 that are likely acute complicated by clinical evidence of intractable back pain in the setting of known osteoporosis with previous T8 compression fracture; s/p kyphoplasty and she was then admitted to the general medical floor under observation status for ongoing care that is expected to be less than 2 midnights. [facility] Medical History Hyponatremia Pneumonia Hypertension Headache Cataracts, bilateral Cancer UTI (urinary tract infection) Bone fracture Back problem Arthritis Anemia Seasonal allergies GERD (gastroesophageal reflux disease) Myocardial infarct CAD (coronary artery disease) Pulmonary nodule Bronchitis Old myocardial infarction COPD (chronic obstructive pulmonary disease) Hyperlipidemia History of non-ST elevation myocardial infarction (NSTEMI) Takotsubo cardiomyopathy Atherosclerotic heart disease of [place] coronary artery without angina pectoris Tongue cancer History of coronary vasospasm Osteoporosis Benign essential HTN Asthma Home Medications ???Medication ???Instructions ???Recorded ???Last Taken ???Type albuterol sulfate 90 mcg/actuation 1 - 2 puff inhalation Q6H PRN PRN 05/30/17 Unknown Rx aerosol inhaler Wheezing ##1 sucralfate 1 gram tablet 1 g PO QHS PRN reflux 10/29/17 07/15/19 History nitroglycerin 0.4 mg sublingual 0.4 mg sublingual Q5M PRN Chest 07/16/19 11/18/19 History tablet Pain multivitamin 1 tab PO DAILY 05/18/21 Unknown History lorazepam 0.5 mg tablet 0.5 mg PO DAILY PRN PRN Anxiety 08/09/21 Unknown History calcium 500 mg-vitamin D3 1,000 3 tab PO QPM supplement 05/31/22 Unknown History unit-vitamin K 40 mcg chewable tablet paroxetine HCl 10 mg tablet 5 mg PO DAILY 05/31/22 Unknown History pravastatin 80 mg tablet See Rx Instructions .Route 07/31/23 Unknown Rx .COMPLEX #90 tabs amlodipine 5 mg tablet 5 mg PO DAILY #90 tabs 10/16/23 Unknown Rx pantoprazole 40 mg tablet,delayed 40 mg PO DAILY for acid reflux #90 12/05/23 Unknown Rx release TABLETS metoprolol succinate 50 mg 50 mg PO DAILY blood 02/13/24 Unknown Rx tablet,extended release 24 hr pressure/heart #90 tabs oxycodone 5 mg tablet 5 mg PO Q6H PRN pain 3 days #12 05/22/24 Unknown Rx tabs meloxicam 15 mg tablet 15 mg PO QHS 06/21/24 Unknown History Allergy/AdvReac Type Severity Reaction Status Date / Time umeclidinium (From Anoro AdvReac Intermediate heart Verified 06/20/24 21:53 Ellipta) racing, high bp, anxious vilanterol (From Anoro AdvReac Intermediate heart Verified 06/20/24 21:53 Ellipta) racing, high bp, anxious codeine AdvReac HEART RACES Verified 06/20/24 21:53 Corticosteroids AdvReac high blood Verified 06/20/24 21:53 (Glucocorticoids) pressure indomethacin (From Indocin) AdvReac Abd Verified 06/20/24 21:53 cramps/diarrhea indomethacin sodium (From AdvReac Abd Verified 06/20/24 21:53 Indocin) cramps/diarrhea levofloxacin (From Levaquin) AdvReac INCREASE (more content not included)... Normal [facility] Spine Thoracic (Routine)on 0 06-21-2024 Spine Thoracic (Routine) [facility] Imaging Services [address] [place], [place] [id number] Spine Thoracic (Routine) MR#: [id number] Acct: [id number] Name: ALEXY BRANNON Rep #: [id number] : 1945 F 78 From: Michael Botello MD PCP: Dr. Malcolm Guzman MD Status: ADM MELVINA Study: Spine Thoracic (Routine) Date of Exam: Exam# [id number] Ordering Dr: Ian Tang DO [id number] STUDY: MRI THORACIC SPINE WITHOUT CONTRAST REASON FOR EXAM: Female, 78 years old. T5 and T7 compression fractures noted on CT. TECHNIQUE: Standardized fat and water weighted pulse sequences were obtained in the sagittal and axial planes. COMPARISON: CT 06/21/2024 FINDINGS: There is an increased kyphosis of the thoracic spine. Mild levoscoliosis centered at T7. Chronic mild wedge compression fractures of T5, T7, T8 with vertebroplasty at T8 and no marrow edema or retropulsion into the spinal canal. T1-2, T2-3, T3-4, T4-5, T5-6, T6-7, T7-8, T8-9, T9-10, T10-11, T11-12: Normal endplates. Normal disc hydration, heights and morphology of the corresponding intervertebral discs. Normal central canal and intervertebral neural foramina at the corresponding levels. Normal visualized thoracic cord. Normal conus medullaris that terminates at the L1.. The soft tissue structures are unremarkable. MRI/Spine Thoracic (Routine) IMPRESSION: Chronic mild compression fractures of the midthoracic spine with increased kyphosis but no retropulsion into the spinal canal with no severe spinal stenosis or cord compression. Electronically Signed: Michael Botello MD at 19:36 EDT , CC: Dr. Ian Tang DO; Dr. Malcolm Guzman MD Program Or Project Administrator: Signed Normal [facility] Spine Thoracic without Contr ason 06-21-2024 Spine Thoracic without Contras [facility] Imaging Services [address] [place] [address] Spine Thoracic without Contras MR#: [id number] Acct: [id number] Name: ALEXY BRANNON Rep #: [id number] : 1945 F 78 From: Marlena Miner PCP: Dr. Malcolm Guzman MD Status: REG ER Study: Spine Thoracic without Contras Date of Exam: 0 06/21/24 Exam# [id number] Ordering Dr: Timothy Rene DO -[id number] INDICATION: midline pain hx of compression fx in past lumbar EXAMINATION: CT THORACIC SPINE - CT Spine Thoracic W/O Contrast Injection TECHNIQUE: Helically acquired images were obtained of the thoracic spine. 2D reformats were reviewed. A radiation dose optimization technique was used for this scan. The protocol utilizes one or more of the following dose reduction techniques: automated exposure control, adjustment of mA and/or kV according to patient size,and/or use of iterative reconstruction technique. IV Contrast dosage and agent: None. RADIATION DOSAGE (If Supplied By Facility): CTDIvol = ( 12.32 ) mGy, DLP = ( 992.72 ) mGycm COMPARISON: Prior study dated: CT chest 06/27/2017. FINDINGS: ALIGNMENT: No subluxation. Kyphosis. Scoliosis. MINERALIZATION: Osteopenic. VERTEBRAL BODIES: T8 vertebroplasty chronic compression abnormality. T5: Mild vertebral body compression fracture with approximately 50% vertebral body height loss; and T7: Mild compression fracture with 45% vertebral body height loss, uncertain age, not present on the prior CT chest from 06/27/2017. DISC SPACES: Unremarkable. POSTERIOR ELEMENTS: Unremarkable. SPINAL CANAL: Maintained. PARASPINAL SOFT TISSUES: Unremarkable. OTHER: Interstitial changes in the lung apices is not significantly changed compared to prior CT chest. Cluster of small nodular opacities in the left lower lobe not present on the prior. Large cystic structure in the left upper abdomen partially included, presumed renal. CT abdomen and pelvis was obtained and reported separately. CT/Spine Thoracic without Contras IMPRESSION: Mild to moderate compression fractures at T5 and T7, uncertain age. MRI may be helpful for further evaluation. Chronic T8 compression fracture with vertebroplasty. Small nodular opacities in the left lower lobe may be acute inflammatory or postinflammatory. Not present on prior CT chest. Nodule/malignancy not entirely excluded. CT chest imaging follow-up recommended in 4-6 weeks to confirm resolution. Electronically Signed: Marlena Alvarenga MD at 2:49 EDT , CC: Dr. Malcolm Guzman MD; Dr. Timothy Rene DO Program Or Project Administrator: Signed Normal [facility] Thyroid Stim Hormone (TSH)on 06-21-2024 TSH 2.650 uIU/mL Normal 0.358-3.740 [facility] Comment on above: Performed By: #### L [id number] #### [facility] Laboratory [address] [place], [address] Urinalysis, Completeon 06-21 WBC 0-5 SEEN Normal 0-5 [facility] Comment on above: Order Comment: CLEAN CATCH Performed By: #### L [id number] #### [facility] Laboratory [address] [place], [address] BACTERIA 0 SEEN Normal None Seen [facility] Comment on above: Order Comment: CLEAN CATCH Performed By: #### L [id number] #### [facility] Laboratory [address] [place], [address] EPI,SQUAMOUS 0 SEEN Normal 5-10 [facility] Comment on above: Order Comment: CLEAN CATCH Performed By: #### L [id number] #### [facility] Laboratory [address] [place], [address] Mucus Ql (Urine sed) [address] [facility] Comment on above: Order Comment: CLEAN CATCH Performed By: #### L [id number] #### [facility] Laboratory [address] [place], [address] RBC 0 SEEN Normal 0-5 [facility] Comment on above: Order Comment: CLEAN CATCH Performed By: #### L [id number] #### [facility] Laboratory [address] [place], [address] 12 Lead EKGon 06-20-2024 12 Lead EKG [facility] Cardiovascular Services [address] [place] [address] 12 Lead EKG 06/21/24 0002 MR#: [id number] Acct: [id number] Name: ALEXY BRANNON Rep #: [id number] : 1945 78 From: Karan Persaud MD Attending Dr: Dr. Saundra Medel DO Status: DIS I NO Ordering Dr: Timothy Rene DO Date: 06/20/24 Location: [facility] Sex: F C Admitted: 06/21/24 Test Reason : BACK Blood Pressure : / mmHG Vent. Rate : 076 BPM Atrial Rate : 076 BPM P-R Int : 150 ms QRS Dur : 070 ms QT Int : 380 ms P-R-T Axes : 043 019 056 degrees QTc Int : 427 ms Normal sinus rhythm Septal infarct , age undetermined Abnormal ECG Confirmed by KARAN PERSAUD MD ([id number]), market editor MELISSA MAURER ([id number]) on 06/24/2024 1:54:10 PM Referred By: Confirmed By:KARAN PERSAUD MD 06/24/24 135 Date Karan Persaud MD CC: Dr. Saundra Medel DO; Dr. Malcolm Guzman MD; Dr. Timothy Rene DO Signed Normal [facility] Inital Evaluation (1) - PTon 06-12-2024 Inital Evaluation (1) - PT [facility] Physical Therapy [facility] [address] [place] [address] / REHABILITATION SERVICES INITIAL EVALUATION MR#: [id number] Acct: [id number] Name: ALEXY BRANNON Rep #: [id number] : 1945 78 From: Eva Pablo PT, Cert. MDT Referring Dr.: Dr. Malcolm Guzman MD Status: REG RCR Insurance: MEDICARE PART A B [employer] Patient's Visit Information Visit Information Visit Information: ALEXY BRANNON is a 78 year old F referred to Physical Therapy by Dr. Malcolm Guzman MD with a diagnosis of HIP PAIN. Date of Evaluation: 05/20/24 Physical Therapist: Eva Pablo, PT, Cert MDT Visit Plan Frequency: 2x /Week Duration: 4-6 Weeks Plan: 1. US to R hip at 1.5 w/cm2 x 8 min x 6 visits 2. Increase R hip range of motion 3. Improve strength of R LE in both open and closed chain. 4. Progress gait with LRD as patient will allow (Has refused AD in past). Re-integrate functional mobility with stairs and transfers as tolerated. Subjective Subjective: Work/Leisure: RETIRED. HOBBIES: PUZZLES AND roopa. ACTIVE AROUND THE HOUSE AND AT [employer]. Present symptoms: R HIP AND GROIN PAIN. NERVE PAIN, NUMBESS AND TINGLING THAT SHOOTS ALL THE WAY DOWN LEG TO TOES. SHAHEED LOW BACK PAIN. Present since: ABOUT 5 WKS AGO Pain Scale: WORST 9/10, LEAST 3/10 Currently: 5/10 Is it getting better, worse or staying the same: GETTING WORSE Commenced as a result of: NO APPARENT REASON. STARTED IN THE MIDDLE OF THE NIGHT WHILE IN BED - WOKE HER UP. Symptoms at onset: R HIP PAIN Worse: BEING STILL, SITTING, LYING DOWN, WALKING, STANDING, BENDING OVER TO PICK THINGS UP, STAIRS, LIFTING Better: NOTHING HELPS - TRIED MELOXICAM, STEROIDS, TYLONOL - NOTHING HELPS. GETTING UP AND MOVING IS THE ONLY THIING SHE CAN DO. Disturbed sleep: YES Previous history/Previous treatment: OSTEPOROSIS. BROKE BACK TURNING OVER IN BED AND HAD TO HAVE SURGERY (KYPHOPLASTY) IN 2008, BROKE HIP FROM FALL 2014 REPAIRED WITH MARIA T, ANOTHER FALL 2013 3 PELVIC FX'S - NO SX. FX TAILBONE 2022 - NO SX. Treatment this episode: MEDICATIONS. PT REFERRAL ONLY Coughing/sneezing/s training: NE ON PAIN. Gait: 2022 WAS LAST FALL. NOT USING ANY AD'S. DOES GET LIGHT HEADED AND LOSE HER BALANCE. HAS ASSISTIVE DEVICES - CANES AND WALKERS BUT STATES SHE IS suborn AND DOESN'T USE THEM. Bowel or Bladder Dysfunction: NO Unexplained weight loss: NO Imaging: RECENT R HIP X-RAY SHOWING MILD ARTHRITIS PER PATIENT REPORT. PMH/Recent major surgery: OSTEOPROSIS. ACID REFLUX. COPD. ANXIETY. HTN. OTHER: PATIENT REPORTS DR. DUMONT ALREADY TALKED ABOUT HIP SURGERY AND SAID IT IS BEST TO HAVE IT DONE NOW IF SHE HAS TO HAVE IT. STATES HE SAID SHE MIGHT ALSO NEED A CORTISONE SHOT BUT RECOMMENDS TRYING THERAPY FIRST. Pain LB: Pain Intensity (Out of 10): 9 R hip: Pain Intensity (Out of 10): 9 Comment: wraps around into thigh down to ankle. Objective Objective: Sitting/Standing Posture: INCREASED KYPHOSIS, SCOLIOSIS Other Observations: THIS PATIENT AMBULATES INDEP'LY INTO PT WITHOUT ANY AD'S WITH ANTALGIC GAIT PATTERN, DECREASED CADANCE AND DECREASED WT BEARING TIME R LE. UNABLE TO TRANSFER SIT TO STAND WITHOUT UE ASSIST. UNABLE TO SLS R LE. Sensory deficit: SHAHEED LE LIGHT TOUCH SENSATION GROSSLY INTACT AND SYMMETRICAL ROM deficit: SHAHEED HIP FLEX, HS AND CALF TIGHTNESS. SHAHEED HIP ER TIGHTNESS R > L. PAIN WITH R HIP IR AND ER ROM TESTING EVEN WITH GENTLE TESTING. Motor deficit: Left LE strength hip flexion 4/5, abduction 4/5, adduction 4/5, extension 4/5, IR 4/5, ER 4/5, knee flexion 5/5, knee extension 5/5, ankle DF 5/5, ankle PF 5/5 Right LE strength hip flexion 4-/5, abduction 4-/5, adduction 4-/5, extension 4-/5, IR 3/5, ER 3/5, knee flexion 4/5, knee extension 4/5, ankle DF 5/5, ankle PF 5/5 Reflexes: UNABLE TO ELICIT SHAHEED LE DTR'S. Dural Signs: NEGATIVE SHAHEED LE DTR'S. Lumbar mvmt loss: flex - MOD - INCREASES LPB - NW ext - ALESSIA - INCREASES LBP - NW R SG - ALESSIA - INCREASES R LB AND R HIP - W L SG - ALESSIA - INCREASES R LBP, R HIP AND R GROIN - NW Core strength: POOR Balance/Special Test Scores Lower Extremity Functional Score: 35 Goals Goal 1:: Pt. will improve left LE strength to 4/5 for all motions in order to improve stability and balance. Goal Time Frame: 4-6 Weeks Goal 2:: Pt. will be able to walk at least 10 minutes without AD and no rest break in order to improve endurance. Goal Time Frame: 4-6 Weeks Goal 3:: Pt. will improve single leg stance > 15 secs in order to improve stability and balance. Goal Time Frame: 4-6 Weeks Goal 4:: Pt. will be able to complete at least 8 sit to stands in 30 secs with arm assist in order to improve ADL's. Goal Time Frame: 4-6 Weeks Goal 5:: Pt. will be able to complete LE dressing with no pain or difficulty. Goal Time Frame: 4-6 Weeks Goal 6:: Pt. will (more content not included)... Normal [facility] Re-Evaluation - PT (1)on Re-Evaluation - PT (1) [facility] Physical Therapy [facility] [address] [place] [address] [address] [place] [address] / REEVALUATION / MEDICARE RECERTIFICATION PHYSICAL THERAPY MR#: [id number] Acct: [id number] Name: ALEXY BRANNON Rep #: [id number] : 1945 78 From: Eva Pablo PT, Cert. MDT Referring Dr.: Dr. Malcolm Guzman MD Status:REG RCR Insurance: MEDICARE PART A B WPS FOR LIFE Re-Evaluation Intro: Dr. Malcolm Guzman MD, It has been my pleasure to treat ALEXY BRANNON over the last 7 visits for HIP PAIN. Please see the progress note below for an update on the physical therapy plan of care! Subjective Subjective: PATIENT REPORTS SHE HAD HER MRI YESTERDAY AND SHE IS AWAITING THE RESULTS. PATIENT REPORTS DECREASED PAIN WITH US TREATMENTS IN PHYSICAL THERAPY AND STATES SHE ONLY DOES THE EX'S THAT DON'T HURT. Objective Objective/Function: THIS PATIENT AMBULATES INDEP'LY INTO PT TODAY WITHOUT ANY AD'S WITH SLOW ANTALGIC GAIT PATTERN WITH C/O 5/10 R LB AND R HIP PAIN. SHE WALKS WITH DECREASED CADANCE AND SHORT SHAHEED STRIDE LENGTH. NO LOB BUT GAIT IS NOT STEADY. SHE IS ABLE TO TRANSFER INDEP'LY FROM SIT TO STAND AND REVERSE BUT SHE IS SHAHEED'LY UE DEP TO DO SO. THIS PT CONTINUES TO ENCOURAGE USE OF AD'S BUT SHE REMAINS RELUCTANT. SHE REPORTS SHE MAY NEED BACK SURGERY OR INJECTIONS AND WOULD LIKE TO HOLD PT AND THIS PT AGREES. NO FURTHER TESTING TODAY. PATIENT IS AWAITING MRI RESULTS AND PLANS TO CONTACT HER PHYSICIAN FOR THE RESULTS. SEE LEFS SCORE OF 20 TODAY COMPARED TO 35 AT INITIAL EVAL. Plan Plan Plan: HOLD PT. Balance/Gait/Functi onal tests Balance/Special Test Scores Lower Extremity Functional Score: 20 Goals Goals Goal 1:: Pt. will improve left LE strength to 4/5 for all motions in order to improve stability and balance. Goal Time Frame: 4-6 Weeks Goal Progress: NT Goal 2:: Pt. will be able to walk at least 10 minutes without AD and no rest break in order to improve endurance. Goal Time Frame: 4-6 Weeks Goal Progress: NT Goal 3:: Pt. will improve single leg stance > 15 secs in order to improve stability and balance. Goal Time Frame: 4-6 Weeks Goal Progress: NT Goal 4:: Pt. will be able to complete at least 8 sit to stands in 30 secs with arm assist in order to improve ADL's. Goal Time Frame: 4-6 Weeks Goal Progress: NT Goal 5:: Pt. will be able to complete LE dressing with no pain or difficulty. Goal Time Frame: 4-6 Weeks Goal Progress: Not Progressing Goal 6:: Pt. will improve LEFS score < 30% disability in order to improve mobility and ADL's. Goal Time Frame: 4-6 Weeks Goal Progress: Not Progressing Anticipated Interventions Anticipated Interventions Patient/Client Instruction: Educate patient on: Condition, Plan of Care and Risk Factors For the Purpose of:: To improve self management Therapeutic Exercise to Include: Strength training, Endurance training, Balance training, Postural training, Flexibilty training, Gait and locomotor training, In an aquatic setting", Passive ROM and Active ROM Comment: consider aquatic therapy For the Purpose of:: To decrease pain, To decrease swelling/inflammati on, To increase ROM, To improve muscle performance and motor function, To improve ability to perform ADL's, To increase tolerance to activity/condition/ position, To improve performance and independence with ADL's, To improve ability of physical actions for home/community/work /leisure, To improve gait and locomotor functions, To increase flexibility/ROM, To improve endurance and To improve self management Cryotherapy (ice pack, ice massage): Yes Thermo therapy (hot pack): Yes Ultrasound (thermal/non thermal): Yes For the Purpose of:: To decrease pain, To decrease swelling/inflammati on and To improve nutrient delivery to tissue Re-Evaluation Ending Re-evaluation ending: Please do not hesitate to contact me at [phone] by phone or if you have questions or concerns regarding this new plan of care! Sincerely, Eva Pablo, PT, Cert MDT 06/12/24 7856 CC: Dr. Malcolm Guzman MD KELSI Signed For Medicare only, by signing this I certify the plan of care. _ Physicians Signature Date Normal [facility] Spine Lumbar (Routine)on Spine Lumbar (Routine) [facility] Imaging Services [address] [place] [id number] Spine Lumbar (Routine) MR#: [id number] Acct: [id number] Name: ALEXY BRANNON Rep #: [id number] : 1945 F 78 From: Michael Botello MD PCP: Dr. Malcolm Guzman MD Status: REG CLI Study: Spine Lumbar (Routine) Date of Exam: 06/11/24 Exam# [id number] Ordering Dr: Malcolm Guzman MD -[id number] STUDY: MRI LUMBAR SPINE WITHOUT CONTRAST REASON FOR EXAM: Female, 78 years old. Back Pain INTO R -- HIP TECHNIQUE: Standardized fat and water weighted pulse sequences were obtained in the sagittal and axial planes. COMPARISON: None FINDINGS: T12-L1: Normal endplates. Normal disc height, hydration and morphology. Normal bilateral facet joints. Normal central canal and bilateral lateral recesses. Normal bilateral intervertebral neural foramina. Normal lumbar lordosis. Mild dextroscoliosis centered at L1/L2. Normal conus medullaris that terminates at the L1. Marrow pallor suggestive of osteopenia. L1-2: Normal endplates. Normal disc height, hydration and morphology. Normal bilateral facet joints. Normal central canal and bilateral lateral recesses. Normal bilateral intervertebral neural foramina. L2-3: Mild bilateral disc protrusion produces mild spinal stenosis and mild bilateral neural foraminal stenosis. L3-4: Normal endplates. Normal disc height, hydration and morphology. Normal bilateral facet joints. Normal central canal and bilateral lateral recesses. Normal bilateral intervertebral neural foramina. L4-5: Mild bilateral disc osteophyte complex produces mild spinal stenosis and moderate bilateral neural foraminal stenosis. L5-S1: Mild broad disc protrusion produces mild spinal stenosis and mild bilateral neural foraminal stenosis. Normal visualized sacral ala. 5 cm exophytic cyst upper pole left kidney. MRI/Spine Lumbar (Routine) IMPRESSION: Mild dextroscoliosis with degenerative disc disease as described above. Electronically Signed: Michael Botello MD at 11:15 EDT , CC: Dr. Malcolm Guzman MD Program Or Project Administrator: Signed Normal [facility] Emergency Department Summary on 05-22-2024 Emergency Department Summary [facility] Medical Records Department [address] [place] [address] Emergency Department Summary 05/22/24 MR#: [id number] Acct: [id number] Name: ALEXY BRANNON Rep #: [id number] : 1945 78 From: Blanco Mcdonald MD PCP: Dr. Malcolm Guzman MD Status:REG ER Location: ED HPI History of Present Illness Chief Complaint: Other, Pain/Inj Narrative Narrative: 78-year-old female past medical history of back pain and osteoporosis presents with back pain and right leg pain that she has had for over a month. She relates history that she saw her primary care provider Dr. Guzman who put her on meloxicam for her right hip pain that radiates down her leg. She recently just finished steroids as well. She denies any red flag signs, no fevers or chills, no saddle anesthesia, no loss of bowel or bladder. She started physical therapy 2 days ago, and the physical therapist told her that she thinks it is coming from her back and not her hip. She called her primary care provider's office today and they told her that they would schedule the outpatient MRI, but she was having so much pain that she told him she was going to come to the emergency department. [facility] Medical History Hyponatremia Pneumonia Hypertension Headache Cataracts, bilateral Cancer UTI (urinary tract infection) Bone fracture Back problem Arthritis Anemia Seasonal allergies GERD (gastroesophageal reflux disease) Myocardial infarct CAD (coronary artery disease) Pulmonary nodule Bronchitis Old myocardial infarction COPD (chronic obstructive pulmonary disease) Hyperlipidemia History of non-ST elevation myocardial infarction (NSTEMI) Takotsubo cardiomyopathy Atherosclerotic heart disease of [place] coronary artery without angina pectoris Tongue cancer History of coronary vasospasm Osteoporosis Benign essential HTN Asthma Home Medications ???Medication ???Instructions ???Recorded ???Last Taken ???Type albuterol sulfate 90 mcg/actuation 1 - 2 puff inhalation Q6H PRN PRN 05/30/17 Unknown Rx aerosol inhaler Wheezing ##1 sucralfate 1 gram tablet 1 g PO QHS PRN reflux 10/29/17 07/15/19 History nitroglycerin 0.4 mg sublingual 0.4 mg sublingual Q5M PRN Chest 07/16/19 11/18/19 History tablet Pain multivitamin 1 tab PO DAILY 05/18/21 Unknown History lorazepam 0.5 mg tablet 0.5 mg PO DAILY PRN PRN Anxiety 08/09/21 Unknown History calcium-vitamin D3-vitamin K 500 3 tab PO QPM supplement 05/31/22 Unknown History mg-1,000 unit-40 mcg chewable tablet paroxetine HCl 10 mg tablet 5 mg PO DAILY 05/31/22 Unknown History cranberry fruit concentrate 250 mg 250 mg PO DAILY 03/08/23 Unknown History chewable tablet (Azo Cranberry) pravastatin 80 mg tablet See Rx Instructions .Route 07/31/23 Unknown Rx .COMPLEX #90 tabs tiotropium 2.5 mcg-olodaterol 2.5 2 puff inhalation DAILY #3 device 09/10/23 Unknown Rx mcg/actuation mist for inhalation (Stiolto Respimat) amlodipine 5 mg tablet 5 mg PO DAILY #90 tabs 10/16/23 Unknown Rx pantoprazole 40 mg tablet,delayed 40 mg PO DAILY for acid reflux #90 12/05/23 Unknown Rx release TABLETS metoprolol succinate 50 mg 50 mg PO DAILY blood 02/13/24 Unknown Rx tablet,extended release 24 hr pressure/heart #90 tabs oxycodone 5 mg tablet 5 mg PO Q6H PRN pain 3 days #12 05/22/24 Unknown Rx tabs Allergy/AdvReac Type Severity Reaction Status Date / Time umeclidinium (From Anoro AdvReac Intermediate heart Verified 05/22/24 14:23 Ellipta) racing, high bp, anxious vilanterol (From Anoro AdvReac Intermediate heart Verified 05/22/24 14:23 Ellipta) racing, high bp, anxious codeine AdvReac HEART RACES Verified 05/22/24 14:23 Corticosteroids AdvReac high blood Verified 05/22/24 14:23 (Glucocorticoids) pressure indomethacin (From Indocin) AdvReac Abd Verified 05/22/24 14:23 cramps/diarrhea indomethacin sodium (From AdvReac Abd Verified 05/22/24 14:23 Indocin) cramps/diarrhea levofloxacin (From Levaquin) AdvReac INCREASED Verified 05/22/24 14:23 BLOOD PRESSURE nitrofurantoin (From AdvReac Nausea/Vom/ Verified 05/22/24 14:23 Macrobid) Diarrhea propoxyphene napsylate (From AdvReac PASSES OUT Verified 05/22/24 14:23 Darvocet-N 100) Family History Father , age 92, had [place] age 35 Myocardial infarction, Onset Age: 35 Arthritis Mother Asthma Respiratory disease Grandmother Asthma Emphysema lung Respiratory disease Other Heart disease Hypertension Surgical History H/O kyphoplasty H/O: hysterectomy History of tonsillectomy S/P pericardial window creation History of cataract surgery History of pericardie (more content not included)... Normal [facility] Extremity Lower without Cont raon 05-22-2024 Extremity Lower without Contra [facility] Imaging Services [address] [place], [place] [id number] Extremity Lower without Contra MR#: [id number] Acct: [id number] Name: ALEXY BRANNON Rep #: [id number] : 1945 F 78 From: Klever oleary MD PCP: Dr. Malcolm Guzman MD Status: REG ER Study: Extremity Lower without Contra Date of Exam: 0 05/22/24 Exam# [id number] Ordering Dr: Blanco Mcdonald MD -[id number] CT RIGHT LOWER EXTREMITY WITH 3-D IMAGING CLINICAL INDICATION: Right hip pain following a fall. TECHNIQUE: Axial CT images of the RIGHT lower extremity was performed IV contrast material. Coronal and sagittal reformats were provided. The protocol utilizes one or more of the following dose reduction techniques: automated exposure control, adjustment of mA and/or kV according to patient size,and/or use of iterative reconstruction technique. RADIATION DOSAGE (If Supplied By Facility): CTDIvol = ( 12.06 ) mGy, DLP = ( 295.02 ) mGycm COMPARISON: No relevant prior comparison study available FINDINGS: Bones: Osseous structures are normal without evidence of fracture or dislocation. No lytic or blastic osseous masses. Soft Tissues: The deep soft tissue structures are unremarkable. The superficial soft tissues are unremarkable without evidence of edema, hematoma, or foreign body. CT/Extremity Lower without Contra IMPRESSION: No evidence of fracture or dislocation. Mild degree of osteoarthritis of the hip joint. Electronically Signed: Klever Law MD at 15:25 EDT , CC: Dr. Blanco Mcdonald MD; Dr. Malcolm Guzman MD Program Or Project Administrator: Signed Normal [facility] Spine Lumbar without Contras ton 05-22-2024 Spine Lumbar without Contrast [facility] Imaging Services [address] [place], [place] [address] Spine Lumbar without Contrast MR#: [id number] Acct: [id number] Name: ALEXY BRANNON Rep #: [id number] : 1945 F [id number] From: Klever oleary MD PCP: Dr. Malcolm Guzman MD Status: REG ER Study: Spine Lumbar without Contrast Date of Exam: Exam# [id number] Ordering Dr: Blanco Mcdonald MD -[id number] STUDY: CT LUMBAR SPINE WITHOUT CONTRAST REASON FOR EXAM: Female, 78 years old. Low back pain. RADIATION DOSAGE (If Supplied By Facility): CTDIvol = ( 13.82 ) mGy, DLP = ( 373.83 ) mGycm TECHNIQUE: The patient was scanned in a multi detector CT scanner. High resolution transaxial imaging was performed. Images were obtained from L1 to S1 vertebral level. Sagittal and coronal images were reconstructed. Individualized dose optimization techniques were used for this CT. COMPARISON: None FINDINGS: Normal lumbar lordosis. Mild dextroscoliosis. Normal vertebrae of the lumbar spine. L1-2: Normal endplates. Normal disc height and morphology. Normal bilateral facet joints. Normal central canal and bilateral lateral recesses. Normal bilateral intervertebral neural foramina. L2-3: Mild degree of disc space narrowing. Spondylosis. Mild degree of diffuse posterior disc bulge. L3-4: Facet joint osteoarthritis and hypertrophy. No significant stenosis seen. L4-5: Marked degree of disc space narrowing with subchondral sclerosis. Spondylosis. Facet joint osteoarthritis and hypertrophy with bilateral neural foraminal stenosis. Hypertrophy of the ligamenta flava suggests a mild central canal stenosis. L5-S1: Normal endplates. Normal disc height and morphology. Normal bilateral facet joints. Normal central canal and bilateral lateral recesses. Normal bilateral intervertebral neural foramina. There is a 3.3 cm x 6.1 cm cyst arising from the upper pole of the left kidney. CT/Spine Lumbar without Contrast IMPRESSION: Multilevel degenerative changes, as described above. 6.1 cm x 3.3 cm cyst arising from the upper pole of the left kidney. Electronically Signed: Klever Law MD at 15:27 EDT , CC: Dr. Blanco Mcdonald MD; Dr. Malcolm Guzman MD Program Or Project Administrator: Signed Normal [facility] Basophil percentageOrdered B y: Malcolm Guzman on 08-06-2023 Bilirubin [Mass/Vol] 0.50 mg/dL 0.20-1.00 [facility] Comment on above: For patients on eltr ombopag therapy, use of Dimension [place] TBIL is not recommended. Chloride [Moles/Vol] 93 mmol/L 98-107 [facility] Cholesterol [Mass/Vol] 212 mg/dL <200 [facility] Comment on above: <200 mg/dL Desirable 200-240 mg/dL Borderline >240 mg/dL High Risk Glucose [Mass/Vol] 93 mg/dL 74-106 [facility] Potassium [Moles/Vol] 3.9 mmol/L 3.5-5.1 [facility] Protein [Mass/Vol] 7.5 g/dL 6.4-8.2 [facility] Sodium [Moles/Vol] 129 mmol/L 136-145 [facility] Triglyceride [Mass/Vol] 70 mg/dL <199 [facility] Comment on above: The drugs N-Acetylcy steine and Metamizole may falsely depress this assay.Serum Triglycerides Reference Interval Normal <150 mg/dL Borderline high 150 - 199 mg/dL High 200 - 499 mg/dL Very High > or = 500 mg/dL Laboratory - Chemistry and C hemistry - challengeOrdered By: Malcolm Guzman on 08-06-2023 ALP [Catalytic activity/Vol] 87 U/L 45-117 [facility] ALT [Catalytic activity/Vol] 31 U/L 13-56 [facility] CO2 [Moles/Vol] 31.0 mmol/L 21.0-32.0 [facility] Globulin (S) [Mass/Vol] 3.3 g/dL 2.2-4.2 [facility] Urea nitrogen/Creatinine [Mass ratio] 13.3 mg/mg 10-20 [facility] No Panel InformationOrdered By: Malcolm Guzman on 08-06-2023 Estimated GFR (MDRD) Amer 96 mL/min >60 [facility] Comment on above: GFR Calc Estimated GFR (MDRD) Non-Af Amer 80 mL/min >60 [facility] Comment on above: Non- GFR Calc Serum or plasma albumin fransisca urement (mass/volume)Ordered By: Malcolm Guzman on 08-06-2023 Albumin [Mass/Vol] 4.2 g/dL 3.2-5.0 [facility] Serum or plasma albumin/glob ulin mass ratioOrdered By: Malcolm Guzman on 08-06-2023 Albumin/Globulin [Mass ratio] 1.3 {ratio} 0.9-2.4 [facility] Serum or plasma calcium fransisca urement (mass/volume)Ordered By: Malcolm Guzman on 08-06-2023 Calcium [Mass/Vol] 8.9 mg/dL 8.5-10.1 [facility] Serum or plasma cholesterol in HDL measurement (mass/volume)Ordered By: Malcolm Guzman on 08-06-2023 Cholesterol in HDL [Mass/Vol] 83 mg/dL >40 [facility] Comment on above: The drugs N-Acetylcy steine and Metamizole may falsely depress this assay. Reference Range HDL <40 mg/dL Low HDL Cholesterol HDL >or= 60 mg/dL High HDL Cholesterol Serum or plasma cholesterol in VLDL measurement (mass/volume)Ordered By: Malcolm Guzman on 08-06-2023 Cholesterol in VLDL [Mass/Vol] 14 mg/dL 5-40 [facility] Serum or plasma creatinine m easurement (mass/volume)Ordered By: Malcolm Guzman on 08-06-2023 Creatinine [Mass/Vol] 0.75 mg/dL 0.55-1.02 [facility] Comment on above: The validity of the calculated GFR & GFRAA in patients over 70 years has not been determined. Clinical correlation is essential. Serum or plasma low density lipoprotein (LDL) cholesterol measurement (mass/volume)Ordered By: Malcolm Guzman on 08-06-2023 Cholesterol in LDL [Mass/Vol] 115 mg/dL 0-130 [facility] Serum or plasma urea nitroge n measurement (mass/volume)Ordered By: Malcolm Guzman on 08-06-2023 Urea nitrogen [Mass/Vol] 10 mg/dL 7-18 [facility] Thin prep Papanicolaou smear with manual screeningOrdered By: Malcolm Guzman on 08-06-2023 Thin prep Papanicolaou smear with manual screening 21 U/L 15-37 [facility] Thin prep Papanicolaou smear with manual screening 5 5-15 [facility] Basophil percentageOrdered B y: Dr. Guzman on 02-14-2023 Bilirubin [Mass/Vol] 0.50 mg/dL 0.20-1.00 [facility] Comment on above: For patients on eltr ombopag therapy, use of Dimension [place] TBIL is not recommended. Chloride [Moles/Vol] 92 mmol/L 98-107 [facility] Cholesterol [Mass/Vol] 209 mg/dL <200 [facility] Comment on above: <200 mg/dL Desirable 200-240 mg/dL Borderline >240 mg/dL High Risk Glucose [Mass/Vol] 98 mg/dL 74-106 [facility] Potassium [Moles/Vol] 4.9 mmol/L 3.5-5.1 [facility] Protein [Mass/Vol] 7.3 g/dL 6.4-8.2 [facility] Sodium [Moles/Vol] 128 mmol/L 136-145 [facility] Triglyceride [Mass/Vol] 99 mg/dL <199 [facility] Comment on above: The drugs N-Acetylcy steine and Metamizole may falsely depress this assay.Serum Triglycerides Reference Interval Normal <150 mg/dL Borderline high 150 - 199 mg/dL High 200 - 499 mg/dL Very High > or = 500 mg/dL Laboratory - Chemistry and C hemistry - challengeOrdered By: Dr. Guzman on 02-14-2023 ALP [Catalytic activity/Vol] 101 U/L 45-117 [facility] ALT [Catalytic activity/Vol] 28 U/L 13-56 [facility] CO2 [Moles/Vol] 27.0 mmol/L 21.0-32.0 [facility] Globulin (S) [Mass/Vol] 3.0 g/dL 2.2-4.2 [facility] Urea nitrogen/Creatinine [Mass ratio] 8.0 mg/mg 10-20 [facility] No Panel InformationOrdered By: Dr. Guzman on 02-14-2023 Estimated GFR (MDRD) Amer 96 mL/min >60 [facility] Comment on above: GFR Calc Estimated GFR (MDRD) Non-Af Amer 80 mL/min >60 [facility] Comment on above: Non- GFR Calc Serum or plasma albumin fransisca urement (mass/volume)Ordered By: Dr. Guzman on 02-14-2023 Albumin [Mass/Vol] 4.3 g/dL 3.2-5.0 [facility] Serum or plasma albumin/glob ulin mass ratioOrdered By: Dr. Guzman on 02-14-2023 Albumin/Globulin [Mass ratio] 1.4 {ratio} 0.9-2.4 [facility] Serum or plasma calcium fransisca urement (mass/volume)Ordered By: Dr. Guzman on 02-14-2023 Calcium [Mass/Vol] 9.3 mg/dL 8.5-10.1 [facility] Serum or plasma cholesterol in HDL measurement (mass/volume)Ordered By: Dr. Guzman on 02-14-2023 Cholesterol in HDL [Mass/Vol] 86 mg/dL >40 [facility] Comment on above: The drugs N-Acetylcy steine and Metamizole may falsely depress this assay. Reference Range HDL <40 mg/dL Low HDL Cholesterol HDL >or= 60 mg/dL High HDL Cholesterol Serum or plasma cholesterol in VLDL measurement (mass/volume)Ordered By: Dr. Guzman on 02-14-2023 Cholesterol in VLDL [Mass/Vol] 20 mg/dL 5-40 [facility] Serum or plasma creatinine m easurement (mass/volume)Ordered By: Dr. Guzman on 02-14-2023 Creatinine [Mass/Vol] 0.75 mg/dL 0.55-1.02 [facility] Comment on above: The validity of the calculated GFR & GFRAA in patients over 70 years has not been determined. Clinical correlation is essential. Serum or plasma low density lipoprotein (LDL) cholesterol measurement (mass/volume)Ordered By: Dr. Guzman on 02-14-2023 Cholesterol in LDL [Mass/Vol] 103 mg/dL 0-130 [facility] Serum or plasma urea nitroge n measurement (mass/volume)Ordered By: Dr. Guzman on 02-14-2023 Urea nitrogen [Mass/Vol] 6 mg/dL 7-18 [facility] Thin prep Papanicolaou smear with manual screeningOrdered By: Dr. Guzman on 02-14-2023 Thin prep Papanicolaou smear with manual screening 25 U/L 15-37 [facility] Thin prep Papanicolaou smear with manual screening 9 5-15 [facility] Basophil percentageon 2021 Chloride [Moles/Vol] 93 mmol/L 98-107 [facility] Work Phone: [phone] Cholesterol [Mass/Vol] 228 mg/dL <200 [facility] Work Phone: [phone] Comment on above: <200 mg/dL Desirable 200-240 mg/dL Borderline >240 mg/dL High Risk Glucose [Mass/Vol] 97 mg/dL 74-106 [facility] Work Phone: [phone] Potassium [Moles/Vol] 4.1 mmol/L 3.5-5.1 [facility] Work Phone: [phone] Sodium [Moles/Vol] 129 mmol/L 136-145 [facility] Work Phone: [phone] Triglyceride [Mass/Vol] 115 mg/dL [facility] Work Phone: Comment on above: The drugs N-Acetylcy steine and Metamizole may falsely depress this assay.Serum Triglycerides Reference Interval Normal <150 mg/dL Borderline high 150 - 199 mg/dL High 200 - 499 mg/dL Very High > or = 500 mg/dL Laboratory - Chemistry and C hemistry - challengeon 01-11-2022 CO2 [Moles/Vol] 28.0 mmol/L 21.0-32.0 [facility] Work Phone: [phone] Urea nitrogen/Creatinine [Mass ratio] 10.8 mg/mg 07-13 [facility] Work Phone: [phone] Panel Informationon 01-11 Estimated GFR (MDRD) Amer 99 mL/min >60 [facility] Work Phone: Comment on above: GFR Calc Estimated GFR (MDRD) Non-Af Amer 82 mL/min >60 [facility] Work Phone: Comment on above: Non- GFR Calc Serum or plasma calcium fransisca urement (mass/volume)on 01-11-2022 Calcium [Mass/Vol] 9.2 mg/dL 8.5-10.1 [facility] Work Phone: [phone] Serum or plasma cholesterol in HDL measurement (mass/volume)on 01-11-2022 Cholesterol in HDL [Mass/Vol] 92 mg/dL [facility] Work Phone: Comment on above: The drugs N-Acetylcy steine and Metamizole may falsely depress this assay. Reference Range HDL <40 mg/dL Low HDL Cholesterol HDL >or= 60 mg/dL High HDL Cholesterol Serum or plasma cholesterol in VLDL measurement (mass/volume)on 01-11-2022 Cholesterol in VLDL [Mass/Vol] 23 mg/dL 5-40 [facility] Work Phone: [phone] Serum or plasma creatinine m easurement (mass/volume)on 01-11-2022 Creatinine [Mass/Vol] 0.74 mg/dL 0.55-1.02 [facility] Work Phone: [phone] Comment on above: The validity of the calculated GFR & GFRAA in patients over 70 years has not been determined. Clinical correlation is essential. Serum or plasma low density lipoprotein (LDL) cholesterol measurement (mass/volume)on 01-11-2022 Cholesterol in LDL [Mass/Vol] 113 mg/dL 0-130 [facility] Work Phone: [phone] Serum or plasma urea nitroge n measurement (mass/volume)on 01-11-2022 Urea nitrogen [Mass/Vol] 8 mg/dL 7-18 [facility] Work Phone: [phone] Thin prep Papanicolaou smear with manual screeningon 01-11-2022 Thin prep Papanicolaou smear with manual screening 8 5-15 [facility] Work Phone: Basophil percentageon 2021 Chloride [Moles/Vol] 91 mmol/L 98-107 [facility] Work Phone: [phone] Glucose [Mass/Vol] 102 mg/dL 74-106 [facility] Work Phone: [phone] Comment on above: Fasting Glucose resu lt from 100 to 125 mg/dL suggests IMPAIRED HOMEOSTASIS per A.D.A. criteria. Potassium [Moles/Vol] 4.1 mmol/L 3.5-5.1 [facility] Work Phone: [phone] Sodium [Moles/Vol] 127 mmol/L 136-145 [facility] Work Phone: [phone] Laboratory - Chemistry and C hemistry - challengeon 11-09-2021 CO2 [Moles/Vol] 30.0 mmol/L 21.0-32.0 [facility] Work Phone: [phone] Free T4 [Mass/Vol] 0.98 ng/dL 0.76-1.46 [facility] Work Phone: [phone] Sodium (U) [Moles/Vol] 39 mmol/L Not Establ. [facility] Work Phone: [phone] Urea nitrogen/Creatinine [Mass ratio] 9.6 mg/mg 10-20 [facility] Work Phone: [phone] No Panel Informationon 11-09 Estimated GFR (MDRD) Amer 100 mL/min >60 [facility] Work Phone: Comment on above: GFR Calc Estimated GFR (MDRD) Non-Af Amer 83 mL/min >60 [facility] Work Phone: Comment on above: Non- GFR Calc Thyroid Stimulating Hormone (TSH) 1.58 uIU/mL 0.358-3.74 [facility] Work Phone: Vitamin D 25-Hydroxy 39.3 ng/mL [facility] Work Phone: Comment on above: Vitamin D 25(OH) Sta tus Range Deficiency <20 ng/mL (50nmol/L) Insufficiency 20 - 30 ng/mL (50 - 75 nmol/L) Sufficiency 30 - 100 ng/mL (75 - 250 nmol/L) Toxicity >100 ng/mL (>250 nmol/L) Serum or plasma calcium fransisca urement (mass/volume)on 11-09-2021 Calcium [Mass/Vol] 9.2 mg/dL 8.5-10.1 [facility] Work Phone: Serum or plasma cortisol darshana surement (mass/volume)on 11-09-2021 Cortisol [Mass/Vol] 13.80 ug/dL 3.44-22.45 [facility] Work Phone: Comment on above: Adult (AM) 5.27 - 22 .45 ug/dL Adult (PM) 3.44 - 16.76 ug/dLPlease note revised CORTISOL reference range effective 2019. Serum or plasma creatinine m easurement (mass/volume)on 11-09-2021 Creatinine [Mass/Vol] 0.73 mg/dL 0.55-1.02 [facility] Work Phone: Comment on above: The validity of the calculated GFR & GFRAA in patients over 70 years has not been determined. Clinical correlation is essential. Serum or plasma urea nitroge n measurement (mass/volume)on 11-09-2021 Urea nitrogen [Mass/Vol] 7 mg/dL 7-18 [facility] Work Phone: Thin prep Papanicolaou smear with manual screeningon 11-09-2021 Thin prep Papanicolaou smear with manual screening 6 5-15 [facility] Work Phone: Thin prep Papanicolaou smear with manual screening 274 mOsm/KG 280-301 [facility] Work Phone: Urine osmolality measurement on 11-09-2021 Osmolality (U) [Osmolality] 169 mOsm/KG [facility] Work Phone: Comment on above: Normal Urine Referen ce Ranges Random: 50 - 1200 mOsm/kg H20 depending on fluid intake Random: >850 mOsm/kg after 12 hour fluid restriction 24 hour: ~300 - 900 mOsm/kg H2O Lab Report: Lipid Profileon 10-22-2017 Cholesterol 176 mg/dL Invalid Interpretation Code 200 [facility] Work Phone: [phone] HDL Cholesterol 84 mg/dL Invalid Interpretation Code [facility] Work Phone: [phone] LDL Cholesterol 80 mg/dL Invalid Interpretation Code 0-130 [facility] Work Phone: [phone] Triglyceride 61 mg/dL Invalid Interpretation Code [facility] Work Phone: [phone] very low density lipoproteins 12 mg/dL Invalid Interpretation Code 5-40 [facility] Work Phone: [phone] Lab Report: Liver Profileon 10-22-2017 Alanine aminotransferase (ALT) 30 U/L Invalid Interpretation Code 13-56 [facility] Work Phone: [phone] Albumin 4.0 g/dL Invalid Interpretation Code 3.2-5.0 [facility] Work Phone: [phone] Alkaline phosphatase (ALP) 68 U/L Invalid Interpretation Code 45-117 [facility] Work Phone: [phone] Aspartate aminotransferase (AST) 17 U/L Invalid Interpretation Code 15-37 [facility] Work Phone: [phone] Bilirubin (direct) 0.10 mg/dL Invalid Interpretation Code 0.00-0.30 [facility] Work Phone: [phone] Bilirubin (total) 0.40 mg/dL Invalid Interpretation Code 0.20-1.00 [facility] Work Phone: [phone] Globulin 3.3 g/dL Invalid Interpretation Code 2.2-4.2 [facility] Work Phone: [phone] Protein 7.3 g/dL Invalid Interpretation Code 6.4-8.2 [facility] Work Phone: [phone] Lab Report: Basic Metabolic Profile (BMP)on 03-14-2017 Anion gap 8 mmol/L Invalid Interpretation Code 5-15 [facility] Work Phone: [phone] Anion gap molar conc 8 mmol/L 5-[address] [facility] [address] [facility] Work Phone: [phone] Calcium mass conc 8.7 mg/dL Invalid Interpretation Code 8.5-10.1 [facility] Work Phone: [phone] Chloride molar conc 95 mmol/L Low 98-107 [facility] Work Phone: [phone] CO2 30.0 mmol/L Invalid Interpretation Code 21.0-32.0 [facility] Work Phone: [phone] CO2 ppres (BldV) 30.0 mmol/L 21.0-32.0 [facility] Work Phone: [phone] Creatinine mass conc 0.76 mg/dL Invalid Interpretation Code 0.55-1.02 [facility] Work Phone: [phone] eGFR (non-black) 97 mL/min/{1.73_m2} Invalid Interpretation Code >60 [facility] Work Phone: [phone] EST GFR - AA 97 mL/min >60 [facility] Work Phone: [phone] GFR/1.73 sq M predicted among non-blacks MDRD vol rate/area (S/P/Bld) 80 mL/min/{1.73_m2} Invalid Interpretation Code >60 [facility] Work Phone: [phone] Glucose 88 mg/dL Invalid Interpretation Code 70-110 [facility] Work Phone: [phone] Glucose mass conc 88 mg/dL 70-110 [facility] Work Phone: [phone] Potassium molar conc 3.8 mmol/L Invalid Interpretation Code 3.5-5.1 [facility] Work Phone: [phone] Sodium molar conc 133 mmol/L Low 136-145 [facility] Work Phone: [phone] Urea nitrogen mass conc 13 mg/dL Invalid Interpretation Code 7-18 [facility] Work Phone: [phone] Urea nitrogen/Creatinine mass ratio 17.1 RATIO Invalid Interpretation Code 10-20 [facility] Work Phone: [phone] Lab Report: Lipid Profileon 03-14-2017 Cholesterol in HDL mass conc 67 mg/dL Invalid Interpretation Code [facility] Work Phone: [phone] Cholesterol in LDL mass conc 103 mg/dL Invalid Interpretation Code 0-130 [facility] Work Phone: [phone] Cholesterol mass conc 192 mg/dL Invalid Interpretation Code 200 [facility] Work Phone: [phone] Lipoprotein.pre-beta mass conc 22 mg/dL Invalid Interpretation Code 5-40 [facility] Work Phone: [phone] Triglyceride mass conc 112 mg/dL Invalid Interpretation Code [facility] Work Phone: [phone] Lab Report: Liver Profileon 03-14-2017 Albumin mass conc 4.0 g/dL Invalid Interpretation Code 3.4-5.0 [facility] Work Phone: [phone] Alkaline phosphatase (ALP) 78 U/L Invalid Interpretation Code 45-117 [facility] Work Phone: [phone] ALP enzyme act/vol (Bld) 78 U/L 45-117 [facility] Work Phone: [phone] ALT enzyme act/vol 27 U/L Invalid Interpretation Code 12-78 [facility] Work Phone: [phone] AST enzyme act/vol 17 U/L Invalid Interpretation Code 15-37 [facility] Work Phone: [phone] Bilirubin mass conc 0.50 mg/dL Invalid Interpretation Code 0.20-1.00 [facility] Work Phone: [phone] Bilirubin.direct mass conc 0.10 mg/dL Invalid Interpretation Code 0.00-0.30 [facility] Work Phone: [phone] Globulin 3.4 g/dL Invalid Interpretation Code 2.3-3.5 [facility] Work Phone: [phone] Globulin mass conc (S) 3.4 g/dL 2.3-3.5 [facility] Work Phone: [phone] Protein mass conc 7.4 g/dL Invalid Interpretation Code 6.4-8.2 [facility] Work Phone: [phone] Office Visiton 01-31-2017 Documentation of current medications (procedure) Done Invalid Interpretation Code [facility] Work Phone: [phone] Protein mass conc Done [facility] Work Phone: [phone] Clinical Lists Update: 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 07-31-2016 Cholesterol 189 mg/dL [facility] Work Phone: [phone] HDL Cholesterol 78 mg/dL [facility] Work Phone: [phone] LDL Cholesterol 96 mg/dL [facility] Work Phone: [phone] Triglyceride 73 mg/dL [facility] Work Phone: [phone] Office Visiton 05-03-2016 Documentation of current medications (procedure) Done Invalid Interpretation Code [facility] Work Phone: [phone] Replaced Document: Marybel E CG Observationson 05-03-2016 EKG QRS axis 21 deg [facility] Work Phone: [phone] electrocardiogram interpretation Sinus Rhythm WITHIN NORMAL LIMITS Invalid Interpretation Code [facility] Work Phone: [phone] GE use only - for [employer] import when terms are not otherwise specified 395 ms Invalid Interpretation Code [facility] Work Phone: [phone] Interpretation Sinus Rhythm WITHIN NORMAL LIMITS [facility] Work Phone: [phone] P [place] 55 deg [facility] Work Phone: [phone] P wave axis, electrocardiogram 55 deg Invalid Interpretation Code [facility] Work Phone: [phone] RI Interval 150 ms [facility] Work Phone: [phone] RI interval, electrocardiogram 150 ms Invalid Interpretation Code [facility] Work Phone: [phone] Pulse (Heart Rate) 78 /min Invalid Interpretation Code [facility] Work Phone: [phone] QRS axis, electrocardiogram 21 deg Invalid Interpretation Code [facility] Work Phone: [phone] QRS Duration 86 ms [facility] Work Phone: [phone] QRS duration, electrocardiogram 86 ms Invalid Interpretation Code [facility] Work Phone: [phone] QT Interval new path ms [facility] Work Phone: [phone] QT interval, electrocardiogram new path ms Invalid Interpretation Code [facility] Work Phone: [phone] QTc F[place] 395 ms [facility] Work Phone: [phone] T [place] 39 deg [facility] Work Phone: [phone] T wave axis, electrocardiogram 39 deg Invalid Interpretation Code [facility] Work Phone: [phone] Office Visiton 12-27-2015 Tobacco smoking status UTIS Tobacco smoking status UTIS Invalid Interpretation Code [facility] Work Phone: [phone] Tobacco smoking status [facility] Never smoker [facility] Work Phone: [phone] Tobacco use [facility] Never smoker Invalid Interpretation Code [facility] Work Phone: [phone] Clinical Lists Update: 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 12-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 basophils as percent of blood leukocytes, manual count 0.5 % Invalid Interpretation Code [facility] Work Phone: [phone] eosinophils as percent of blood leukocytes, manual count 1.6 % Invalid Interpretation Code [facility] Work Phone: [phone] Erythrocyte distribution width Ratio (RBC) 13.8 % [facility] Work Phone: [phone] Erythrocytes (RBC) 3.85 10*6/uL [facility] Work Phone: [phone] Hematocrit (HCT) 35.7 % Low [facility] Work Phone: [phone] Hematocrit Volume Fraction (Bld) 35.7 % Low [facility] Work Phone: [phone] Hemoglobin (HGB) 11.8 g/dL Low [facility] Work Phone: [phone] Lymphocytes/100 leukocytes 35.0 % Invalid Interpretation Code [facility] Work Phone: [phone] Lymphocytes/100 WBC (Bld) 35.0 % [facility] Work Phone: [phone] MCH 30.6 pg Invalid Interpretation Code [facility] Work Phone: [phone] Entitic mass (RBC) 30.6 pg [facility] Work Phone: [phone] MCHC 33.1 g/dL Invalid Interpretation Code [facility] Work Phone: [phone] MCHC mass conc (RBC) 33.1 g/dL [facility] Work Phone: [phone] MCV 92.7 fL Invalid Interpretation Code [facility] Work Phone: [phone] MCV Entitic volume (RBC) 92.7 fL [facility] Work Phone: [phone] Monocytes/100 leukocytes 10.9 % High [facility] Work Phone: [phone] Monocytes/100 WBC (Bld) 10.9 % High [facility] Work Phone: [phone] neutrophils, band form as percent of blood leukocytes, manual count 52.0 % Invalid Interpretation Code [facility] Work Phone: [phone] Platelet mean volume Entitic volume (Bld) 8.9 fL [facility] Work Phone: [phone] Platelets 281 10*3/mm3 Invalid Interpretation Code [facility] Work Phone: [phone] Platelets #/vol (Bld) 281 10*3/mm3 [facility] Work Phone: [phone] PMV by Edith 8.9 fL Invalid Interpretation Code [facility] Work Phone: [phone] RBC #/vol (Bld) 3.85 10*6/uL Low [facility] Work Phone: [phone] RDW-CA 13.8 % Invalid Interpretation Code [facility] Work Phone: [phone] WBC #/vol (Bld) 3.8 10*3/uL Low [facility] Work Phone: [phone] WBC (Leukocytes) 3.8 10*3/uL Low [facility] Work Phone: [phone] BUN/Creatinine Ratio 17.5 mg/mg [facility] Work Phone: [phone] Calcium 8.1 mg/dL [facility] Work Phone: [phone] Chloride 103 mmol/L [facility] Work Phone: [phone] CO2 29.0 mmol/L Invalid Interpretation Code [facility] Work Phone: [phone] CO2 ppres (BldV) 29.0 mmol/L [facility] Work Phone: [phone] Creatinine 0.68 mg/dL [facility] Work Phone: [phone] Left ventricular Ejection fraction 65 % Invalid Interpretation Code [facility] Work Phone: [phone] Potassium 3.7 mmol/L [facility] Work Phone: [phone] Sodium 138 mmol/L [facility] Work Phone: [phone] Thyroid stimulating hormone (TSH) 2.47 u[iU]/mL Invalid Interpretation Code [facility] Work Phone: [phone] Urea nitrogen 12 mg/dL [facility] Work Phone: [phone] very low density lipoproteins 21 mg/dL [facility] Work Phone: [phone] Clinical Lists Update: 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 07-28-2015 Alanine aminotransferase (ALT) 31 U/L [facility] Work Phone: [phone] Alkaline phosphatase (ALP) 131 U/L Invalid Interpretation Code [facility] Work Phone: [phone] ALP enzyme act/vol (Bld) 131 U/L [facility] Work Phone: [phone] Anion gap 5 mmol/L Invalid Interpretation Code [facility] Work Phone: [phone] Anion gap molar conc 5 mmol/L [facility] Work Phone: [phone] Aspartate aminotransferase (AST) 20 U/L [facility] Work Phone: [phone] Glucose 106 mg/dL Invalid Interpretation Code [facility] Work Phone: [phone] Glucose mass conc 106 mg/dL [facility] Work Phone: [phone] Office Visiton 03-01-2015 cardiac risk group C Invalid Interpretation Code [facility] Work Phone: [phone] General cardiovascular disease 10Y risk [#] [place]idra'[place] N/A Invalid Interpretation Code [facility] Work Phone: [phone]) Lab Report: Vitamin D,25 Hyd roxyon 11-18-2014 vitamin D 25-hydroxy, serum 30.4 ng/mL Invalid Interpretation Code [facility] Work Phone: [phone] Vitamin D 25-OH 30.4 ng/mL [facility] Work Phone: [phone] Lab Report: Basic Metabolic Profile (BMP)on 11-17-2014 eGFR (non-black) 92 mL/min/{1.73_m2} Invalid Interpretation Code >60 [facility] Work Phone: [phone] eGFR (non-black) 76 mL/min/{1.73_m2} >60 [facility] Work Phone: [phone] EST GFR - AA 92 mL/min >60 [facility] Work Phone: [phone]) Lab Report: Liver Profileon 11-17-2014 Albumin 4.2 g/dL 3.4-5.0 [facility] Work Phone: [phone] Bilirubin (direct) 0.14 mg/dL 0.00-0.30 [facility] Work Phone: [phone] Bilirubin (total) 0.50 mg/dL 0.00-4.00 [facility] Work Phone: [phone] Globulin 3.4 g/dL Invalid Interpretation Code 2.7-4.2 [facility] Work Phone: [phone] Globulin mass conc (S) 3.4 g/dL 2.7-4.2 [facility] Work Phone: [phone] Protein 7.6 g/dL 6.4-8.2 [facility] Work Phone: [phone] Lab Report: CMPon 04-27-2014 Albumin/Globulin Ratio 1.2 {ratio} Normal 0.9-2.4 [facility] Work Phone: [phone] Replaced Document: [place] E CG Observationson 10-07-2012 Pulse (Heart Rate) 392 ms Invalid Interpretation Code [facility] Work Phone: [phone] Lab Report: TROPon 3 Troponin I ng/mL Normal <0.06 [facility] Work Phone: [phone] Lab Report: T4on 09-19-2012 Thyroxine (T4) 9.5 ug/dL Normal 4.8-13.9 [facility] Work Phone: [phone]) Clinical Lists Update: 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 08-29-2012 MCHC 34.4 % Invalid Interpretation Code [facility] Work Phone: [phone] [facility] mass conc (RBC) 34.4 % [facility] Work Phone: [phone] Vital Signs Date Time Vital Sign Value Performing Clinician Faci lity 12-09-2024 10:54-0400 Body height 162.[address] Malcolm Guzman MD Work Phone: [facility] 12-09-2024 10:54-0400 Body mass index (BMI) [Ratio] 19.5 kg/m2 Dr. Malcolm Guzman MD Work Phone: [facility] 12-09-2024 10:54-0400 Body weight 51.[address] Malcolm Guzman MD Work Phone: [facility] 12-09-2024 10:54-0400 Diastolic blood pressure 84 mm[Hg] Dr. Malcolm Guzman MD Work Phone: [facility] 12-09-2024 10:54-0400 Heart rate 72 /min Dr. Malcolm Guzman MD Work Phone: [facility] 12-09-2024 10:54-0400 Respiratory rate 16 /min Dr. Malcolm Guzman MD Work Phone: [facility] 12-09-2024 10:54-0400 Systolic blood pressure 158 mm[Hg] Dr. Malcolm Guzman MD Work Phone: [facility] 11-22-2021 10:27-0500 Body height 163.[address] Malcolm Guzman Work Phone: [facility] Work Phone: 11-22-2021 10:27-0500 Body mass index (BMI) [Ratio] 19.9 kg/m2 Dr. Malcolm Guzman Work Phone: [facility] Work Phone: 11-22-2021 10:27-0500 Body weight 53.[address] Malcolm Guzman Work Phone: [facility] Work Phone: 11-22-2021 10:27-0500 Diastolic blood pressure 96 mm[Hg] Dr. Malcolm Guzman Work Phone: [facility] Work Phone: 11-22-2021 10:27-0500 Heart rate 68 /min Dr. Malcolm Guzman Work Phone: [facility] Work Phone: 11-22-2021 10:27-0500 Respiratory rate 16 /min Dr. Malcolm Guzman Work Phone: [facility] Work Phone: 11-22-2021 10:27-0500 Systolic blood pressure 178 mm[Hg] Dr. Malcolm Guzman Work Phone: [facility] Work Phone: 09-20-2021 09:26-0500 Body mass index (BMI) [Ratio] 20.1 kg/m2 Dr. Malcolm Guzman Work Phone: [facility] Work Phone: 09-20-2021 09:26-0500 Body temperature 97.2 [degF] Dr. Malcolm Guzman Work Phone: [facility] Work Phone: 09-20-2021 09:26-0500 Body weight 54.[address] Malcolm Guzman Work Phone: [facility] Work Phone: 09-20-2021 09:26-0500 Diastolic blood pressure 70 mm[Hg] Dr. Malcolm Guzman Work Phone: [facility] Work Phone: 09-20-2021 09:26-0500 Heart rate 91 /min Dr. Malcolm Guzman Work Phone: [facility] Work Phone: 09-20-2021 09:26-0500 Respiratory rate 18 /min Dr. Malcolm Guzman Work Phone: [facility] Work Phone: 09-20-2021 09:26-0500 SaO2% (BldA) [Mass fraction] 99 % Dr. Malcolm Guzman Work Phone: [facility] Work Phone: 09-20-2021 09:26-0500 Systolic blood pressure 128 mm[Hg] Dr. Malcolm Guzman Work Phone: [facility] Work Phone: 01-31-2017 15:28-0400 BMI (Body Mass Index) 19.21 kg/m2 [facility] Work Phone: 01-31-2017 15:28-0400 BP Diastolic 80 mm[Hg] [facility] Work Phone: 01-31-2017 15:28-0400 BP Systolic 130 mm[Hg] [facility] Work Phone: 01-31-2017 15:28-0400 Pulse (Heart Rate) 68 /min [facility] Work Phone: 01-31-2017 15:28-0400 Respiratory Rate 16 /min [facility] Work Phone: 01-31-2017 15:28-0400 Weight 53.98 kg [facility] Work Phone: 05-03-2016 11:08-0400 Heart rate 78 /min [facility] Work Phone: 05-03-2016 10:48-0400 BMI (Body Mass Index) 19.04 kg/m2 [facility] Work Phone: 05-03-2016 10:48-0400 BP Diastolic 78 mm[Hg] Barbie Sultana RN [facility] Work Phone: 05-03-2016 10:48-0400 BP Systolic 136 mm[Hg] Barbie Sultana RN [facility] Work Phone: 05-03-2016 10:48-0400 BSA (Body Surface Area) 1.6 m2 Barbie Sultana RN [facility] Work Phone: 05-03-2016 10:48-0400 Pulse (Heart Rate) 80 /min [facility] Work Phone: 05-03-2016 10:48-0400 Respiratory Rate 16 /min [facility] Work Phone: 05-03-2016 10:48-0400 Weight 53.52 kg Barbie Sultana RN [facility] Work Phone: 08-30-2015 13:49-0500 BP Diastolic 74 mm[Hg] Barbie Slutana RN [facility] Work Phone: 08-30-2015 13:49-0500 BP Systolic 130 mm[Hg] Barbie Sultana RN [facility] Work Phone: 10-07-2012 11:41-0500 Heart rate 392 ms Kortney Cline [facility] Work Phone: 11-30-2011 11:08-0500 Height 167.64 cm Barbie Sultana RN [facility] Work Phone: Encounters Encounter Date Encounter Type Care Provider Facility Start: 05-18-2025 ambulatory Malcolm Guzman Facility:[facility] Start: 04-08-2025 End: 04-08-[address] Malcolm Guzman MD Work Phone: -Radiology [facility] Start: 04-08-2025 End: 04-08-[address] Choco Wu MD -Radiology [facility] Work Phone: Start: 04-08-2025 End: 04-08-2025 ambulatory [facility] Facility:[facility] Start: 02-17-2025 End: 02-17-[address] Malcolm Guzman MD Work Phone: [facility] Work Phone: Start: 02-17-2025 End: 02-17-[address] Malcolm Guzman MD -Laboratory [facility] Start: 02-17-2025 End: 02-17-20[facility] Start: 02-09-2025 End: 02-09-[address] Malcolm Guzman MD Work Phone: [facility] Work Phone: Start: 02-09-2025 End: 02-09-[address] Malcolm Guzman MD -Laboratory [facility] Start: 02-09-2025 End: 02-09-2025 ambulatory Malcolm Guzman Facility:[facility] Start: 02-05-2025 End: 02-05-[address] Malcolm Guzman MD Work Phone: [facility] Work Phone: Start: 02-05-2025 End: 02-05-[address] Malcolm Guzman MD -Laboratory [facility] Work Phone: Start: 02-05-2025 End: 02-05-2025 ambulatory Malcolm Guzman Facility:[facility] Start: 01-06-2025 End: 01-06-[address] Malcolm Guzman MD Work Phone: [facility] Work Phone: Start: 01-06-2025 End: 01-06-[address] Choco Wu MD -Radiology, [facility] Work Phone: Start: 01-06-2025 End: 01-06-2025 ambulatory Choco Wu Facility:[facility] Start: 12-09-2024 End: 12-09-[address] Karan Persaud MD -[facility] Work Phone: Start: 12-09-2024 End: 12-09-2024 ambulatory Malcolm Guzman Facility:[facility] Start: 10-30-2024 End: 10-30-[address] Malcolm Guzman MD -Laboratory, [facility] Start: 10-30-2024 End: 10-30-2024 ambulatory Malcolm Guzman Facility:[facility] Start: 10-28-2024 End: 10-28-2024 Patient encounter procedure Valerie Heard -Laboratory, [facility] Work Phone: Start: 10-28-2024 End: 10-28-2024 ambulatory Valerie Heard Facility:[facility] Start: 10-20-2024 End: 10-20-[address] Malcolm Guzman MD -Laboratory, [facility] Work Phone: Start: 10-20-2024 End: 10-20-2024 ambulatory Malcolm Guzman Facility:[facility] Start: 07-15-2024 End: 07-15-2024 ambulatory Malcolm Guzman Facility:[facility] Start: 07-14-2024 End: 07-14-2024 ambulatory Choco Wu Facility:[facility] Start: 06-30-2024 End: 06-30-2024 Emergency department patient visit Malcolm Guzman Facility:[facility] Start: 06-27-2024 End: 06-27-2024 Emergency department patient visit Malcolm Guzman Facility:[facility] Start: 06-21-2024 End: 06-22-2024 ambulatory Malcolm Guzman Facility:[facility] Start: 06-11-2024 End: 06-11-2024 ambulatory Malcolm Guzman Facility:[facility] Start: 05-22-2024 End: 05-22-2024 Emergency department patient visit Malcolm Guzman Facility:[facility] Start: 08-06-2023 End: 08-06-2023 ambulatory [facility] Work Phone: Start: 08-06-2023 End: 08-06-2023 [facility] Start: 02-14-2023 End: 02-14-2023 ambulatory [facility] Work Phone: Start: 02-14-2023 End: 02-14-2023 Patient encounter procedure [facility] Start: 01-11-2022 End: 01-11-[address] Malcolm Guzman Work Phone: [facility] Start: 11-22-2021 End: 11-22-[address] Malcolm Guzman Work Phone: [facility] Start: 11-09-[address] Malcolm Guzman Work Phone: [facility] Start: 09-20-2021 End: 09-20-[address] Malcolm Guzman Work Phone: [facility] Start: 02-14-2018 Ambulatory [facility] N [facility] Procedures Date Procedure Procedure Detail Performing Clinician Start: 04-08-[address] Malcolm Guzman MD Work Phone: Start: 02-05-[address] Malcolm Guzman MD Work Phone: Start: 01-06-2025 X-ray of lumbar spin e, two or three views Dr. Malcolm Guzman MD Work Phone: Start: 10-28-2024 [address] e detection Dr. Malcolm Guzman MD Work Phone: Start: 10-28-[address] Malcolm Guzman MD Work Phone: Start: 10-28-2024 Iadna-dna/rna gi pth gn multiplex probe tq 6-11 Dr. Malcolm Guzman MD Work Phone: Start: 10-20-[address] Malcolm Guzman MD Work Phone: Start: 09-13-2017 End: 10-23-2017 *Hepatic Function Panel Malcolm Hughes MD Start: 09-13-2017 End: 10-23-2017 Lipid panel [AGGREGATE] Malcolm Hughes MD Start: 01-31-2017 End: 03-14-2017 *Hepatic Function Panel Malcolm Hughes MD Start: 01-31-2017 End: 03-14-2017 Lipid panel [AGGREGATE] Malcolm Hughes MD Start: 05-03-2016 End: 05-03-2016 Electrocardiogram, complete Malcolm puente MD Start: 05-03-2016 End: 05-03-2016 Follow Up Appt 9 months Malcolm Hughes MD Start: 05-03-2016 End: 05-03-2016 PFM Malcolm Hughes MD Start: 12-27-2015 End: 12-28-2015 Electrocardiogram, complete Malcolm puente MD Start: 12-27-2015 End: 12-28-2015 Follow Up Appt 6 months Malcolm Hughes MD Start: 12-27-2015 End: 12-28-2015 PFM Malcolm Hughes MD Start: 08-30-2015 End: 08-30-2015 Follow Up Appt 6 months Malcolm Hughes MD Start: 08-30-2015 End: 08-30-2015 PFM Malcolm Hughes MD Start: 03-01-2015 End: 03-02-2015 Documentation of current medications Malcolm Hughes MD Start: 03-01-2015 End: 03-01-2015 Follow Up Appt 6 months Malcolm Hughes MD Start: 03-01-2015 End: 03-01-2015 PFM Malcolm Hughes MD Start: 10-30-2014 End: 11-17-2014 *Hepatic Function Panel Malcolm Hughes MD Start: 10-30-2014 End: 11-17-2014 Lipid panel [AGGREGATE] Malcolm Hughes MD Start: 04-24-2014 End: 04-27-2014 *Hepatic Function Panel Malcolm Hughes MD Start: 04-24-2014 End: 04-27-2014 Lipid panel [AGGREGATE] Malcolm Hughes MD Start: 02-02-2014 End: 02-02-2014 Electrocardiogram, complete Malcolm puente MD Start: 02-02-2014 End: 02-02-2014 Follow Up Appt 6 months Malcolm Hughes MD Start: 02-02-2014 End: 02-02-2014 PFM Malcolm Hughes MD Start: 10-25-2013 End: 11-21-2013 *Hepatic Function Panel Malcolm Hughes MD Start: 10-25-2013 End: 11-21-2013 Lipid panel [AGGREGATE] Malcolm Hughes MD Start: 07-21-2013 End: 08-01-2013 *Hepatic Function Panel Malcolm Hughes MD Start: 07-21-2013 End: 07-21-2013 eRx Transmitted during this visit (Medicare only) Malcolm Hughes MD Start: 07-21-2013 End: 07-21-2013 Follow Up Appt 6 months Malcolm Hughes MD Start: 07-21-2013 End: 08-01-2013 Lipid panel [AGGREGATE] Malcolm Hughes MD Start: 07-21-2013 End: 07-21-2013 MMM Malcolm Hughes MD Start: 01-10-2013 End: 01-10-2013 Follow Up Appt 6 months Malcolm Hughes MD Start: 01-10-2013 End: 01-10-2013 PFM Malcolm Hughes MD Start: 10-07-2012 End: 04-29-2014 Electrocardiogram, complete Malcolm puente MD Start: 09-30-2012 End: 04-29-2014 *Hepatic Function Panel Malcolm Hughes MD Start: 09-30-2012 End: 04-29-2014 Lipid panel [AGGREGATE] Malcolm Hughes MD Start: 09-19-2012 End: 04-29-2014 *BMP Malcolm Hughes MD Start: 09-19-2012 End: 04-29-2014 Electrocardiogram, complete Malcolm puente MD Start: 09-19-2012 End: 09-19-2012 Follow Up Appt 3 months Malcolm Hughes MD Start: 09-19-2012 End: 04-29-2014 Thyroid stimulating hormone (TSH) Malcolm Hughes MD Start: 09-19-2012 End: 04-29-2014 Thyroxine (T4) Malcolm Hughes MD Start: 06-03-2012 End: 04-29-2014 Follow Up Appt 6 months Malcolm Hughes MD Start: 03-25-2012 End: 04-09-2012 *Hepatic Function Panel Malcolm Hughes MD Start: 03-25-2012 End: 04-09-2012 Lipid panel [AGGREGATE] Malcolm Hughes MD Start: 12-13-2011 End: 12-26-2011 *Hepatic Function Panel Malcolm Hughes MD Start: 12-13-2011 End: 12-26-2011 Lipid panel [AGGREGATE] Malcolm Hughes MD Start: 11-30-2011 End: 12-26-2011 *BMP Malcolm Hughes MD Start: 11-30-2011 End: 11-30-2011 Follow Up Appt 6 months Malcolm Hughes MD Plan of Treatment Date Care Activity Detail Author Start: 10-29-2017 End: 10-29-2017 Appointment Appointment [facility] Work Phone: Start: 10-29-2017 End: 10-29-2017 Appointment Appointment [facility] Work Phone: Start: 09-13-2017 End: 10-23-2017 *Hepatic Function Panel *Hepatic Function Panel [facility] Work Phone: Start: 09-13-2017 End: 10-23-2017 Lipid panel [AGGREGATE] *Lipid Profile CC PCP [facility] Work Phone: Start: 01-31-2017 End: 01-31-2017 Appointment Appointment [facility] Work Phone: Start: 01-31-2017 End: 03-14-2017 *Hepatic Function Panel *Hepatic Function Panel [facility] Work Phone: Start: 01-31-2017 End: 01-31-2017 Follow Up Appt 9 months Follow Up Appt 9 months [facility] Work Phone: Start: 01-31-2017 End: 03-14-2017 Lipid panel [AGGREGATE] *Lipid Profile CC PCP [facility] Work Phone: Start: 01-31-2017 End: 01-31-2017 PFM PFM [facility] Work Phone: Start: 05-03-2016 End: 05-03-2016 Electrocardiogram, complete EKG (In office) [facility] Work Phone: Start: 05-03-2016 End: 05-03-2016 Follow Up Appt 9 months Follow Up Appt 9 months [facility] Work Phone: Start: 05-03-2016 End: 05-03-2016 PFM PFM [facility] Work Phone: Start: 12-27-2015 End: 12-28-2015 Electrocardiogram, complete EKG (In office) [facility] Work Phone: Start: 12-27-2015 End: 12-28-2015 Follow Up Appt 6 months Follow Up Appt 6 months [facility] Work Phone: Start: 12-27-2015 End: 12-28-2015 Nuclear stress test -exercise Nuclear stress test -exercise [facility] Work Phone: Start: 12-27-2015 End: 12-28-2015 PFM PFM [facility] Work Phone: Start: 08-30-2015 End: 08-30-2015 Follow Up Appt 6 months Follow Up Appt 6 months [facility] Work Phone: Start: 08-30-2015 End: 08-30-2015 PFM PFM [facility] Work Phone: Start: 05-17-2015 End: 11-18-2014 *Hepatic Function Panel *Hepatic Function Panel [facility] Work Phone: Start: 05-17-2015 End: 11-18-2014 Lipid panel [AGGREGATE] *Lipid Profile CC PCP [facility] Work Phone: Start: 03-01-2015 End: 03-01-2015 Follow Up Appt 6 months Follow Up Appt 6 months [facility] Work Phone: Start: 03-01-2015 End: 03-01-2015 PFM PFM [facility] Work Phone: Start: 10-30-2014 End: 11-17-2014 *Hepatic Function Panel *Hepatic Function Panel [facility] Work Phone: Start: 10-30-2014 End: 11-17-2014 Lipid panel [AGGREGATE] *Lipid Profile CC PCP [facility] Work Phone: Start: 08-14-2014 End: 08-24-2014 Follow Up Appt 6 months Follow Up Appt 6 months [facility] Work Phone: Start: 08-14-2014 End: 08-24-2014 MMM MMM [facility] Work Phone: Start: 04-24-2014 End: 04-27-2014 *Hepatic Function Panel *Hepatic Function Panel [facility] Work Phone: Start: 04-24-2014 End: 04-27-2014 Lipid panel [AGGREGATE] *Lipid Profile CC PCP [facility] Work Phone: Start: 02-02-2014 End: 02-02-2014 Electrocardiogram, complete EKG (In office) [facility] Work Phone: Start: 02-02-2014 End: 02-02-2014 Follow Up Appt 6 months Follow Up Appt 6 months [facility] Work Phone: Start: 02-02-2014 End: 02-02-2014 PFM PFM [facility] Work Phone: Start: 10-25-2013 End: 11-21-2013 *Hepatic Function Panel *Hepatic Function Panel [facility] Work Phone: Start: 10-25-2013 End: 11-21-2013 Lipid panel [AGGREGATE] *Lipid Profile CC PCP [facility] Work Phone: Start: 07-21-2013 End: 08-01-2013 *Hepatic Function Panel *Hepatic Function Panel [facility] Work Phone: Start: 07-21-2013 End: 07-21-2013 Follow Up Appt 6 months Follow Up Appt 6 months [facility] Work Phone: Start: 07-21-2013 End: 08-01-2013 Lipid panel [AGGREGATE] *Lipid Profile CC PCP [facility] Work Phone: Start: 07-21-2013 End: 07-21-2013 MMM MMM [facility] Work Phone: Start: 01-10-2013 End: 01-10-2013 Follow Up Appt 6 months Follow Up Appt 6 months [facility] Work Phone: Start: 01-10-2013 End: 01-10-2013 PFM PFM [facility] Work Phone: Start: 10-07-2012 End: 04-29-2014 Electrocardiogram, complete EKG (In office) [facility] Work Phone: Start: 09-30-2012 End: 04-29-2014 *Hepatic Function Panel *Hepatic Function Panel [facility] Work Phone: Start: 09-30-2012 End: 04-29-2014 Lipid panel [AGGREGATE] *Lipid Profile [facility] Work Phone: Start: 09-19-2012 End: 04-29-2014 *BMP *BMP [facility] Work Phone: Start: 09-19-2012 End: 04-29-2014 Electrocardiogram, complete EKG (In office) [facility] Work Phone: Start: 09-19-2012 End: 09-19-2012 Follow Up Appt 3 months Follow Up Appt 3 months [facility] Work Phone: Start: 09-19-2012 End: 04-29-2014 Thyroid stimulating hormone (TSH) *TSH [facility] Work Phone: Start: 09-19-2012 End: 04-29-2014 Thyroxine (T4) *T4 (Total) [facility] Work Phone: Start: 06-03-2012 End: 04-29-2014 Follow Up Appt 6 months Follow Up Appt 6 months [facility] Work Phone: Start: 03-25-2012 End: 04-09-2012 *Hepatic Function Panel *Hepatic Function Panel [facility] Work Phone: Start: 03-25-2012 End: 04-09-2012 Lipid panel [AGGREGATE] *Lipid Profile [facility] Work Phone: Start: 12-13-2011 End: 12-26-2011 *Hepatic Function Panel *Hepatic Function Panel [facility] Work Phone: Start: 12-13-2011 End: 12-26-2011 Lipid panel [AGGREGATE] *Lipid Profile [facility] Work Phone: Start: 11-30-2011 End: 12-26-2011 *BMP *BMP [facility] Work Phone: Start: 11-30-2011 End: 11-30-2011 Follow Up Appt 6 months Follow Up Appt 6 months [facility] Work Phone: Alanine aminotransfe rase [Enzymatic activity/volume] in Serum or Plasma [facility] Albumin [Mass/volume ] in Serum or Plasma [facility] Alkaline phosphatase [Enzymatic activity/volume] in Serum or Plasma [facility] Anion gap in Serum o r Plasma [facility] Bilirubin, total measurement [facility] BUN/Creatinine ratio [facility] Calcium [Mass/volume ] in Serum or Plasma [facility] Carbon dioxide, tota l [Moles/volume] in Central venous blood [facility] Cholesterol [Mass/vo lume] in Serum or Plasma [facility] Cholesterol in HDL [Mass/volume] in Serum or Plasma [facility] Creatinine [Mass/vol ume] in Serum or Plasma [facility] Glucose [Mass/volume ] in Serum or Plasma [facility] Low density lipoprot ein cholesterol measurement [facility] Measurement of renal function [facility] Patient Education [facility] Work Phone: Potassium measurement [facility] Serum chloride measurement [facility] Sodium measurement [facility] Total cholesterol:HD L ratio measurement [facility] Total protein measurement [facility] Triglycerides measurement [facility] Urea nitrogen [Mass/ volume] in Serum or Plasma [facility] VLDL cholesterol measurement [facility] Immunizations Immunization Date Immunization Notes Care Provider Fa [facility] 06-21-2024 influenza, high dose seasonal, preservative-free Dr. Malcolm Guzman MD Work Phone: [facility] 08-06-2023 influenza, injectabl e, quadrivalent, preservative free Dr. Malcolm Guzman MD Work Phone: [facility] 08-14-2022 influenza, injectabl e, quadrivalent, preservative free Dr. Malcolm Guzman MD Work Phone: [facility] 07-14-2021 influenza, injectabl e, quadrivalent, preservative free Dr. Malcolm Guzman MD Work Phone: [facility] 03-17-2020 tetanus toxoid, redu atif diphtheria toxoid, and acellular pertussis vaccine, adsorbed Dr. Malcolm Guzman MD Work Phone: [facility] 07-25-2019 influenza, injectabl e, quadrivalent, preservative free [facility] 07-25-2019 influenza, seasonal, injectable Dr. Malcolm Guzman Work Phone: [facility] 07-11-2019 influenza, injectabl e, quadrivalent, preservative free Dr. Malcolm Guzman MD Work Phone: [facility] 07-10-2018 influenza, injectabl e, quadrivalent, preservative free Dr. Malcolm Guzman MD Work Phone: [facility] 07-10-2018 pneumococcal conjuga te vaccine, [address] Malcolm Guzman MD Work Phone: [facility] 06-24-[address] Malcolm Guzman Work Phone: [facility] 06-24-2018 pneumococcal conjuga te vaccine, [address] Malcolm Guzman Work Phone: [facility] 06-28-2017 influenza, injectabl e, quadrivalent, preservative free [facility] 06-28-2017 influenza, seasonal, injectable Dr. Malcolm Guzman Work Phone: [facility] 06-28-2017 influenza, seasonal, injectable, preservative free Dr. Malcolm Guzman MD Work Phone: [facility] 06-24-2017 influenza, injectabl e, quadrivalent, preservative free Dr. Malcolm Guzman MD Work Phone: [facility] 07-28-2015 influenza, injectabl e, quadrivalent, preservative free Dr. Malcolm Guzman MD Work Phone: [facility] 07-26-2015 influenza, injectabl e, quadrivalent, preservative free [facility] 07-26-2015 influenza, seasonal, injectable Dr. Malcolm Guzman Work Phone: [facility] 06-24-[address] Malcolm Guzman Work Phone: [facility] 07-21-2013 influenza, injectabl e, quadrivalent, preservative free Dr. Malcolm Guzman MD Work Phone: [facility] 07-26-2007 influenza, injectabl e, quadrivalent, preservative free Dr. Malcolm Guzman MD Work Phone: [facility] 04-05-2000 hepatitis A vaccine, pediatric/adolescent dosage, [address] Malcolm Guzman MD Work Phone: [facility] 02-23-1998 hepatitis A vaccine, pediatric/adolescent dosage, [address] Malcolm Guzman MD Work Phone: [facility] 02-23-1998 TD(adult) unspecifie d formulation Dr. Malcolm Guzman MD Work Phone: [facility] Payers Date Payer Category Payer Self-pay [id number] 2011 Medicare [id number] 2011 Medicare [id number] [facility] 2002 [employer] ( and others) [id number] Unknown [id number] Unknown [id number] Unknown [id number] [id number] Unknown [id number] [id number] Unknown [id number] [id number] Unknown [id number] [id number] Unknown [id number] 2.16.840.1.303439.3.579.2.462 Unknown [id number] 2.16.840.1.077152.3.579.2.462 Unknown [id number] 2.16.840.1.029964.3.579.2.462 Unknown [id number] 2.16.840.1.065927.3.579.2.462 Unknown [id number] 2.16.840.1.103150.3.579.2.462 Unknown [id number] 2.16.840.1.194176.3.579.2.462 Unknown [id number] 2.16.840.1.219322.3.579.2.462 Unknown [id number] 2.16.840.1.721149.3.579.2.462 Unknown [id number] 2.16.840.1.505320.3.579.2.462 Unknown [id number] 2.16.840.1.780861.3.579.2.462 Unknown [id number] 2.16.840.1.816058.3.579.2.462 Unknown [id number] 2.16.840.1.215895.3.579.2.462 Unknown [id number] [id number] Social History Date Type Detail Facility Start: 11-22-2021 End: 04-03-2023 Tobacco smoking status NHIS Unknown if ever smoked [facility] Start: 02-04-2021 None [facility] Start: 02-04-2021 Homeless [facility] Start: 02-04-2021 Non-smoker [facility] Start: 1945 Sex Assigned At Female W [facility] Start: 06-30-2024 Tobacco smoking stat us NHIS Never smoked tobacco (finding) [facility] Start: 01-08-2025 Sex Female (finding) [facility] Radiology Diagnostic study note 04-09-2025 Note Date & Type Note Facility 04-09-2025 Radiology Diagnostic study note [facility] Imaging Services [address] [place], [place] [address] Thoracic Spine 2 Views MR#: [id number] Acct: [id number] Name: ALEXY BRANNON Rep #: [id number] : 1945 F 79 From: Bettye Buck MD PCP: Dr. Malcolm Guzman MD Status: REG C Study:Thoracic Spine 2 Views Date of Exam: 04/08/25 Exam# [id number] Ordering Dr: Deejay Wu MD EXAM: XR Thoracic Spine, 2 Views CLINICAL INDICATION: SPONDYLOSIS WITHOUT MYELOPATHY OR RADICULOPATHY, THORACIC REGION TECHNIQUE: Frontal and lateral views of the thoracic spine. COMPARISON: No relevant prior studies available. FINDINGS: VERTEBRAE: S shaped scoliosis of the thoracolumbar spine. Moderate endplate degenerative changes and disc disease of the thoracic spine. Status post vertebroplasty of the mid thoracic vertebrae. No acute fracture. Normal alignment. DISC SPACES: See above. SOFT TISSUES: Unremarkable. RAD/Thoracic Spine 2 Views IMPRESSION: Degenerative changes as above. Reading Location: [facility] CC: Dr. Choco Wu MD; Dr. Malcolm Guzman MD ~ Program Or Project Administrator: Signed [facility] Radiology Diagnostic study note 01-07-2025 Note Date & Type Note Facility 01-07-2025 Radiology Diagnostic study note [facility] Imaging Services [address] [place], [place] [address] Lumbar Spine 2 or 3 Views MR#: [id number] Acct: [id number] Name: ALEXY BRANNON Rep #: [id number] : 1945 F 79 From: Amaury Arreola MD PCP: Dr. Malcolm Guzman MD Status: REG C SHAWN Study:Lumbar Spine 2 or 3 Views Date of Exam: 01/06/25 Exam# [id number] Ordering Dr: Deejay Wu MD PROCEDURE: LUMBAR SPINE 2 OR 3 VIEWS 01/06/2025 REASON FOR EXAM: TRAUMA TECHNIQUE: 2 view(s) of the lumbar spine FINDINGS: The bones are osteoporotic. There is approximately 50% loss of height of the body of L1 mostly due to old compression fracture. Normal lumbar lordosis. There is mild rightward scoliosis with its angle tip atthe level of L1. T12-L1: Normal disc height. Normal endplates. Normal alignment of the vertebrae. L1-2: Normal disc height. Normal endplates. Normal alignment of the vertebrae. L2-3: Normal disc height. Normal endplates. Normal alignment of the vertebrae. L3-4: Normal disc height. Normal endplates. Normal alignment of the vertebrae. L4-5: There is narrowing of the intervertebral disc with sclerosis of the vertebral endplates. L5-S1: Normal disc height. Normal endplates. Normal alignment of the vertebrae. The soft tissue structures are unremarkable. RAD/Lumbar Spine 2 or 3 Views IMPRESSION: Osteoporosis. Scoliosis. 50% loss of height of the body of L1 probably due to old compression fracture. Please correlate clinically. MRI would be helpful if clinically warranted. L4-L5 degenerative disc disease. Reading Location: [place] [address] CC: Dr. Choco Wu MD; Dr. Malcolm Guzman MD ~ Program Or Project Administrator: Signed [facility] Evaluation note 12-09-2024 Note Date & Type Note Facility 12-09-2024 Evaluation note Diagnosis Onset Date Resolution Atherosclerotic heart disease of [place] coronary artery without angina pectoris chronic December 09, 2024 10:53am Benign essential HTN chronic Juan h 2024 10:53am Hyperlipidemia chronic November 10:53am Takotsubo cardiomyopathy chronic December 09, 2024 10:53am [facility] Work Phone: Discharge summary note 06-22-2024 Note Date & Type Note Facility 06-22-2024 Note [facility] Medical Records Department [address] [place] [address] Discharge Summary 06/22/24 1401 MR#: [id number] Acct: [id number] Name: ALEXY BRANNON Rep #: [id number] : 1945 78 From: Saundra Medel DO PCP: Dr. Malcolm Guzman MD Status:ADM MELVINA Location: [place] [address] Providers Date of Admission: 06/21/24 Primary Care Physician: Dr. Malcolm Guzman MD Reason For Visit: INTRACTABLE BACK PAIN WITH COMPRESSION FRACTURE AT Diagnosis Discharge Diagnosis (1) Pulmonary nodules: Status: Acute Code(s): R91.8 - Other nonspecific abnormal finding of lung field (2) Compression fracture of thoracic vertebra: Status: Acute Code(s): S22.000A - Wedge compression fracture of unspecified thoracic vertebra, initial encounter for closed fracture Qualifiers: Encounter type: initial encounter Thoracic vertebra fracture level: T6 Qualified Code(s): S22.050A - Wedge compression fracture of T5-T6 vertebra, initial encounter for closed fracture (3) Intractable back pain: Status: Acute Code(s): M54.9 - Dorsalgia, unspecified (4) Dilated pancreatic duct: Status: Acute Code(s): K86.89 - Other specified diseases of pancreas Medications at Discharge Home Medications albuterol sulfate 90 mcg/actuation aerosol inhaler 1 - 2 puff inhalation Q6H PRN PRN Wheezing ##1 05/30/17 sucralfate 1 gram tablet 1 g PO QHS PRN reflux 10/29/17 nitroglycerin 0.4 mg sublingual tablet 0.4 mg sublingual Q5M PRN Chest Pain 07/16/19 multivitamin 1 tab PO DAILY 05/18/21 lorazepam 0.5 mg tablet 0.5 mg PO DAILY PRN PRN Anxiety 08/09/21 calcium 500 mg-vitamin D3 1,000 unit-vitamin K 40 mcg chewable tablet 3 tab PO QPM supplement 05/31/22 paroxetine HCl 10 mg tablet 5 mg PO DAILY 05/31/22 pravastatin 80 mg tablet See Rx Instructions .Route .COMPLEX #90 tabs 07/31/23 amlodipine 5 mg tablet 5 mg PO DAILY #90 tabs 10/16/23 pantoprazole 40 mg tablet,delayed release 40 mg PO DAILY for acid reflux #90 TABLETS 12/05/23 metoprolol succinate 50 mg tablet,extended release 24 hr 50 mg PO DAILY blood pressure/heart #90 tabs 02/13/24 meloxicam 15 mg tablet 15 mg PO QHS 06/21/24 acetaminophen 500 mg tablet 1,000 mg (2 x 500 mg) PO Q8 #0 tabs 06/22/24 lidocaine 5 % topical patch 2 patch topical DAILY #15 ea 06/22/24 oxycodone 5 mg tablet 5 mg PO Q6H PRN PRN Pain Score 6-10 7 days #28 tabs 06/22/24 Hospital Course Operations None Procedures - (CT of the abdomen and pelvis/CT of the thoracic spine/MRI of the thoracic spine) Summary of Care Provided Minutes Spent on Discharge: 38 Hospital Course: Mrs. Brannon is a 78-year-old white female with a history of compression fractures and previous kyphoplasty who presented to the emergency department at [facility] early on the morning of 06/21/2024 complaining of intractable thoracic back pain. Patient reported that she had been having some back pain as of recently that was acute on chronic but had been getting better over several days prior to presentation however she went to the store and leaning forward to put eggs on her front seat and developed excruciating back pain. She tried to go home but her symptoms did not improve show she presents emergency department for evaluation. She indicated on presentation that her symptoms were similar to when she had previous compression fractures. Vital signs on presentation showed temperature of 97, heart rate 91, blood pressure 175/92, respiratory rate is 18 and oxygen saturation was 99% on room air. CBC was unremarkable. Chemistry panel showed chronic stable hyponatremia with a sodium of 130, normal renal function, normal bilirubin, normal LFTs and alk phos and normal TSH. UA was not consistent with infection. CT of the thoracic spine showed mild to moderate compression fractures from T5-T7 of undetermined age and MRI was recommended for assessing acuity as well as a chronic T8 compression fracture with previous vertebroplasty. Nodular opacities that were small were noted in the left lower lobe which were felt to be either acute inflammatory or postinflammatory but not on previous CT when compared and repeat CT was recommended. We did obtain an MRI of the thoracic spine to assess the acuity of her compression fractures. They were reported out as chronic fractures at T5-T7 with previous noted kyphoplasty at T8. By the a.m. of 06/22/2024 she was feeling much better and able to move around independently. She did feel she would be able to go home and follow-up as an outpatient next week with pain management. I have recommended that she call pain management early tomorrow morning and the number was given to her in her discharge paperwork. She would like to be evaluated for kyphoplasty since this has been an ongoing problem for at least 5 weeks now and she did have good success with previous kyphoplasty. We did discharge her with pain medication inc (more content not included)... 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 HTN chronic Hyperlipidemia chronic Takotsubo cardiomyopathy chr onic [facility] Work Phone: Evaluation note Note Date & Type Note Facility Evaluation note No assessment information availa ble [facility] Work Phone: Reason for referral (narrative) Note Date & Type Note Facility Reason for referral (narrative) No reason for referral information available [facility] Work Phone: Summary Purpose Family History No Family History Records Found Relationship Condition Age at Onset Recorded Date/T ilana Not Specified Cardiac disease Unknown Hypertension Unknown father Myocardial infarction 35 Arthritis Unknown mother Asthma Unknown Disorder of respiratory system Unknown grandmother Asthma Unknown Pulmonary emphysema Unknown Relationship Condition Age at Onset Recorded Date/T ilana Not Specified Cardiac disease Unknown Hypertension Unknown father Myocardial infarction 35 Arthritis Unknown mother Asthma Unknown Disorder of respiratory system Unknown grandmother Asthma Unknown Pulmonary emphysema Unknown sister Malignant neoplasm of pancreas Unknown Advance Directives No Advanced Directives Records Found Advance Directive Response Recorded Date/ Time Advance Directives Yes December 09 4:23pm Living Will Yes February 04, 2020 8 :30am Power of Vault Person Yes February 04, 2020 8:30am Advance Directive Response Recorded Date/ Time Advance Directives Yes December 09 3:23pm Living Will Yes February 04, 2020 7 :30am Power of Vault Person Yes February 04, 2020 7:30am Advance Directive Response Recorded Date/ Time Living Will Yes February 04, 2020 8 :30am Do you have a Healthcare Power of Vault Person? Yes February 04, 2020 8:30am Advance Directives Yes December 09 4:23pm Advance Directive Response Recorded Date/ Time Advance Directives Yes December 09 4:23pm Chief Complaint and Reason for Visit Chief Complaint [id number] MAILED EORDER 6 M FU Reason for Visit Hyponatremia Osteoporosis Atherosclerotic heart disease of [place] coronary artery without angina pectoris Benign essential HTN Hyperlipidemia Takotsubo cardiomyopathy Chief Complaint Admit Date 1 Y FU December 09, 2024 10: 53am TRAMA January 06, 2025 3:1 4pm Reason for Visit Admit Date Atherosclerotic heart diseas e of [place] coronary artery without angina pectoris December 09, 2024 10:53am Benign essential HTN December 09, 2024 10 :53am Hyperlipidemia December 09, 2024 10: 53am Takotsubo cardiomyopathy December 09 10:53am Chief Complaint Admit Date TRAMA January 06, 2025 3:1 4pm Additional Source Comments INFORMATION SOURCE (unrecogn ized section and content) DATE CREATED AUTHOR 03/13/2018 [facility] DATE CREATED AUTHOR AUTHOR'S ORGANIZ ATION [facility] Goals (unrecognized section and content) Goals may be documented in a n alternate sectionGoals may be documented in an alternate sectionGoals may be documented in an alternate sectionGoals may be documented in an alternate sectionGoals may be documented in an alternate sectionGoals may be documented in an alternate sectionGoals may be documented in an alternate sectionGoals may be documented in an alternate section Care Teams (unrecognized sec tion and content) Team Status: Active Member Role Status Dates Dr. Malcolm Guzman MD Family Provider Active Dr. Malcolm Guzman MD Primary Care Provider Active Team Status: Inactive Member Role Status Dates Dr. Malcolm Guzman MD Primary Care Provider, Attending Provider Active Team Status: Inactive Member Role Status Dates Dr. Malcolm Guzman MD Primary Care Provider Active Start: October 20, 2024 End: October 20, 2024 Dr. Malcolm Guzman MD Attending Provider Active Start: October 20, 2024 End: October 20, 2024 Dr. Malcolm Guzman MD Referring Provider Active Start: October 20, 2024 End: October 20, 2024 Team Status: Inactive Member Role Status Dates Dr. Malcolm Guzman MD Primary Care Provider Active Start: October 28, 2024 End: October 28, 2024 Valerie Heard Attending Provider Active Start: 2024 End: October 28, 2024 Valerie Heard Referring Provider Active Start: 2024 End: October 28, 2024 Team Status: Inactive Member Role Status Dates Dr. Malcolm Guzman MD Primary Care Provider Active Start: October 30, 2024 End: October 30, 2024 Dr. Malcolm Guzman MD Attending Provider Active Start: October 30, 2024 End: October 30, 2024 Dr. Malcolm Guzman MD Referring Provider Active Start: October 30, 2024 End: October 30, 2024 Team Status: Inactive Member Role Status Dates Dr. Malcolm Guzman MD Primary Care Provider Active Start: December 09, 2024 End: December 09, 2024 Dr. Malcolm Guzman MD Referring Provider Active Start: December 09, 2024 End: December 09, 2024 Dr. Karan Persaud MD Attending Provider Active S tart: December 09, 2024 End: December 09, 2024 Team Status: Inactive Member Role Status Dates Dr. Malcolm Guzman MD Primary Care Provider Active Start: January 06, 2025 End: January 06, 2025 Dr. Choco Wu MD Attending Provider Active Start: January 06, 2025 End: January 06, 2025 Dr. Choco Wu MD Referring Provider Active Start: January 06, 2025 End: January 06, 2025 Team Status: Inactive Member Role Status Dates Dr. Malcolm Guzman MD Primary Care Provider Active Start: February 05, 2025 End: February 05, 2025 Dr. Malcolm Guzman MD Attending Provider Active Start: February 05, 2025 End: February 05, 2025 Dr. Malcolm Guzman MD Referring Provider Active Start: February 05, 2025 End: February 05, 2025 Team Status: Active Member Role Status Dates Dr. Malcolm Guzman MD Primary Care Provider Active Start: February 09, 2025 Dr. Malcolm Guzman MD Attending Provider Active Start: February 09, 2025 Dr. Malcolm Guzman MD Referring Provider Active Start: February 09, 2025 Team Status: Inactive Member Role Status Dates Dr. Malcolm Guzman MD Primary Care Provider Active Start: February 09, 2025 End: February 09, 2025 Dr. Malcolm Guzman MD Attending Provider Active Start: February 09, 2025 End: February 09, 2025 Dr. Malcolm Guzman MD Referring Provider Active Start: February 09, 2025 End: February 09, 2025 Team Status: Inactive Member Role Status Dates Dr. Malcolm Guzman MD Primary Care Provider Active Start: February 17, 2025 End: February 17, 2025 Dr. Malcolm Guzman MD Attending Provider Active Start: February 17, 2025 End: February 17, 2025 Dr. Malcolm Guzman MD Referring Provider Active Start: February 17, 2025 End: February 17, 2025 Team Status: Active Member Role/Relationship Status Dates Dr. Malcolm Guzman MD Family Provider Active Dr. Malcolm Guzman MD Primary Care Provider Active Team Status: Inactive Member Role/Relationship Status Dates Dr. Malcolm Guzman MD Primary Care Provider Active Start: January 06, 2025 End: January 06, 2025 Dr. Choco Wu MD Attending Provider Active Start: January 06, 2025 End: January 06, 2025 Dr. Choco Wu MD Referring Provider Active Start: January 06, 2025 End: January 06, 2025 Team Status: Inactive Member Role/Relationship Status Dates Dr. Malcolm Guzman MD Primary Care Provider Active Start: February 05, 2025 End: February 05, 2025 Dr. Malcolm Guzman MD Attending Provider Active Start: February 05, 2025 End: February 05, 2025 Dr. Malcolm Guzman MD Referring Provider Active Start: February 05, 2025 End: February 05, 2025 Team Status: Inactive Member Role/Relationship Status Dates Dr. Malcolm Guzman MD Primary Care Provider Active Start: February 09, 2025 End: February 09, 2025 Dr. Malcolm Guzman MD Attending Provider Active Start: February 09, 2025 End: February 09, 2025 Dr. Malcolm Guzman MD Referring Provider Active Start: February 09, 2025 End: February 09, 2025 Team Status: Inactive Member Role/Relationship Status Dates Dr. Malcolm Guzman MD Primary Care Provider Active Start: February 17, 2025 End: February 17, 2025 Dr. Malcolm Guzman MD Attending Provider Active Start: February 17, 2025 End: February 17, 2025 Dr. Malcolm Guzman MD Referring Provider Active Start: February 17, 2025 End: February 17, 2025 Team Status: Inactive Member Role/Relationship Status Dates Dr. Malcolm Guzman MD Primary Care Provider Active Start: April 08, 2025 End: April 08, 2025 Dr. Choco Wu MD Attending Provider Active Start: April 08, 2025 End: April 08, 2025 Dr. Choco Wu MD Referring Provider Active Start: April 08, 2025 End: April 08, 2025 FOR RECORDS PERTAINING TO PATIENTS WHO ARE OR HAVE BEEN ENROLLED IN A CHEMICAL DEPENDENCY/SUBSTANCEABUSE PROGRAM, SOME INFORMATION MAY BE OMITTED. This clinical summary was aggregated from multiple sources. Caution should be exercised in using it in the provision of clinical care. This summary normalizes information from multiple sources, and as a consequence, information in this document may materially change the coding, format and clinical context of patient data. In addition, data may be omitted in some cases. CLINICAL DECISIONS SHOULD BE BASED ON THE PRIMARY CLINICAL RECORDS. [facility] [employer] [facility]. provides no warranty or guarantee of the accuracy or completeness of information in this document.
[2025-07-24 18:03] LABS: Color, Urine Straw (Yellow); Glucose, Dipstick Normal (Normal); Ketone-Dipstick Negative (Negative); Leukocyte Esterase-Dipstick 100 /ul (Negative); Nitrite-Dipstick Negative (Negative); Occult Blood-Urine 250 /ul (Negative); Protein-Dipstick 15 mg/dl (Negative); Specific Gravity, Urine 1.010 (1.002-1.030); Urine Bilirubin Dipstick Negative (Negative)
== END | disposition home or self-care (01) ==
LOC: MFPLAB 16:16 → LABSPEC 16:17
PROVIDERS: PCP Family Medicine; Visit Provider Family Medicine
DX: R35.0 Frequency of micturition (principal)
CPT/HCPCS: 81002; 87086; 87088; 87186

== ENCOUNTER → 2025-08-17 | Outpatient (CLI) | payer MEDICARE, OTHER, SELFPAY ==
[2025-08-17 12:12] LABS: Mucous, Urine 0 SEEN /hpf (<or=2+); Squamous Epithelial Cells - UA 0 SEEN /hpf (5-10)
[2025-08-17 15:06] LABS: Color, Urine Red (Yellow); Glucose, Dipstick Normal (Normal); Ketone-Dipstick Negative (Negative); Leukocyte Esterase-Dipstick 500 /ul (Negative); Nitrite-Dipstick Negative (Negative); Occult Blood-Urine 250 /ul (Negative); Protein-Dipstick 100 mg/dl (Negative); Specific Gravity, Urine 1.010 (1.002-1.030); Urine Bilirubin Dipstick Negative (Negative)
[2025-08-17 15:14] LABS: Red Blood Cells-Urine > 100 SEEN /hpf (0-5)
== END | disposition home or self-care (01) ==
PROVIDERS: PCP Family Medicine; Visit Provider Family Medicine
DX: R30.9 Painful micturition, unspecified (principal)
CPT/HCPCS: 81001; 87077; 87086; 87088; 87186

== ENCOUNTER → 2025-09-01 | Outpatient (CLI) | payer MEDICARE, OTHER, SELFPAY ==
--- NOTE | 2025-09-01 13:30 | RAD_ITS ---
PROCEDURE: THORACIC SPINE 2 VIEWS 09/01/2025 REASON FOR EXAM: DDD TECHNIQUE: Procedure Code: RADSPT2 Modality: DX Procedure: THORACIC SPINE 2 VIEWS COMPARISON: Thoracic spine study dated 04/08/2025 FINDINGS: Vertebrae: Diffuse bony demineralization of the thorax, lower cervical spine, thoracic spine and upper lumbar spine is noted. There is a significant levoscoliosis of the thoracic spine and dextroscoliosis of the lower thoracic spine upper lumbar spine. There has been prior vertebroplasty of the T7 and T8 vertebral bodies. There is a decrease in height of the T5, T7, T8, T10 and T11 vertebral bodies. The decrease in height of the T5, T10 and T11 vertebral bodies is a proximally 40%. There is also a decrease in height of the L1 vertebral body by a proximally 50%. These findings are similar when compared to the prior study. Moderate spondylosis of the thoracic spine is noted. Discs: Significant degenerative disc disease is seen involving multiple intrathoracic discs. This is similar when compared to the prior study. Alignment: There is increased kyphotic curvature of the thoracic spine. There is no spondylolisthesis. Other: Arteriosclerotic vascular disease of the aorta is noted. RAD/Thoracic Spine 2 Views IMPRESSION: The overall findings are similar when compared to the prior exam. MRI may be of value for further evaluation of the decrease in height of the abhijit tebral bodies, disc spaces, nerve roots and soft tissue structures in this patient who has abnormal plain film findings. Reading Location: [id number]
== END | disposition home or self-care (01) ==
LOC: RAD 13:21
PROVIDERS: PCP Family Medicine; Referring Provider Anesthesiology Pain Medicine; Visit Provider Anesthesiology Pain Medicine
DX: M51.34 Other intervertebral disc degeneration, thoracic region (principal)
CPT/HCPCS: 72070

== ENCOUNTER → 2025-09-22 | Outpatient (CLI) | payer MEDICARE, OTHER, SELFPAY | END | disposition home or self-care (01) | LOC: MTLAB 12:57 | PROVIDERS: PCP Family Medicine; Referring Provider Family Medicine; Visit Provider Family Medicine | DX: R35.0 Frequency of micturition (principal) | CPT/HCPCS: 87086 ==